=== PATIENT | male | born 1960 | race Caucasian/White ===

== ENCOUNTER 2019-04-14 09:45 | Outpatient (CLI) | payer MEDICAID, SELFPAY ==
[2019-04-14 11:01] LABS: Anion Gap 15.9 (5-19); Blood Urea Nitrogen 21 mg/dL (6-20); Calcium 10.6 mg/Dl (8.6-10.0); Carbon Dioxide 27 mmol/L (22-29); Chloride 95 mmol/L (98-107); Glucose 413 mg/dL (74-109); Phosphorus 4.1 mg/dL (2.5-4.5); Potassium 4.9 mmol/L (3.5-5.1); Sodium 133 mmol/L (136-145)
[2019-04-14 11:37] LABS: Urine Creatinine 155 mg/dL (39-259)
[2019-04-14 11:53] LABS: UPRO/UCREAT Ratio 2.26 mg/mg CR; Urine Protein Random 350 mg/dL
== END 2019-04-14 09:46 | disposition home or self-care (01) ==
LOC: LAB 09:47
PROVIDERS: Family Provider Family Medicine; PCP Family Medicine; Visit Provider Internal Medicine Nephrology
DX: R80.9 Proteinuria, unspecified (principal)
CPT/HCPCS: 80069; 82570; 84156

== ENCOUNTER 2019-05-05 14:45 | Outpatient (CLI) | payer MEDICAID, SELFPAY ==
[2019-05-05 17:39] LABS: 25 Hydroxy Vitamin D 9 ng/mL (30-100)
[2019-05-05 21:38] LABS: Calcium 10.1 mg/dL (8.5-10.5); Parathyroid Hormone 28.4 pg/mL (15-65)
[2019-05-07 14:07] LABS: ALBUMIN 3.7 g/dL (3.8-4.8); ALPHA 1 GLOBULIN 0.3 g/dL (0.2-0.3); ALPHA 2 GLOBULIN 0.8 g/dL (0.5-0.9); BETA 1 GLOBULIN 0.6 g/dL (0.4-0.6); BETA 2 GLOBULIN 0.6 g/dL (0.2-0.5); GAMMA GLOBULIN 1.2 g/dL (0.8-1.7)
[2019-05-07 15:26] LABS: KAPPA/LAMBDA LIGHT CHAINS FREE 1.33 (0.26-1.65); LAMBDA LIGHT CHAIN, FREE, SERU 24.1 mg/L (5.7-26.3)
== END 2019-05-05 14:46 | disposition home or self-care (01) ==
PROVIDERS: Family Provider Family Medicine; PCP Family Medicine; Visit Provider Internal Medicine Nephrology
DX: E83.52 Hypercalcemia (principal); N18.9 Chronic kidney disease, unspecified
CPT/HCPCS: 82306; 82310; 83883; 83970; 84155; 84165

== ENCOUNTER 2019-09-07 10:49 | Outpatient (CLI) | payer MEDICAID, SELFPAY ==
[2019-09-07 12:03] LABS: Basophils # 0.1 10^3/uL (0.0-0.1); Basophils % 0.6 %; Eosinophils # 0.2 10^3/uL (0.0-0.8); Eosinophils % 1.7 %; Hematocrit 44.5 % (42.0-52.0); Hemoglobin 14.8 g/dL (11.7-16.6); Lymphocytes # 2.3 10^3/uL (0.8-4.8); Lymphocytes % 22.6 %; Mean Corpuscular HGB Conc 33.3 g/dL (30.0-36.0); Mean Corpuscular Hemoglobin 31.2 pg (28.0-34.0); Mean Corpuscular Volume 93.9 fL (80-94); Mean Platelet Volume 11.3 fL (7.4-10.4); Monocytes # 1.2 10^3/uL (0.2-0.9); Monocytes % 12.3 %; Neutrophils # 6.2 10^3/uL (1.8-7.7); Neutrophils % 62.4 %; Nucleated Red Blood Cells % 0 %; Platelet Count 251 10^3/cmm (130-400); Red Blood Count 4.74 10^6/uL (4.1-5.3); Red Cell Distribution Width 12.7 % (12.1-15.1)
[2019-09-07 13:02] LABS: Albumin Level 4.1 g/dL (3.5-5.2); Anion Gap 16.9 (5-19); Blood Urea Nitrogen 26 mg/dL (6-20); Calcium 10.6 mg/dL (8.5-10.5); Carbon Dioxide 27 mmol/L (22-29); Chloride 99 mmol/L (98-107); Glomerular Filtration Rate 47.9 mL/min (90-130); Glucose 211 mg/dL (65-115); Phosphorus 4.5 mg/dL (2.5-4.5); Potassium 4.9 mmol/L (3.5-5.1); Sodium 138 mmol/L (136-145)
[2019-09-07 14:15] LABS: Calcium 10.4 mg/dL (8.5-10.5); Parathyroid Hormone 23.1 pg/mL (15-65)
[2019-09-10 08:21] LABS: 25 Hydroxy Vitamin D 19 ng/mL (30-100)
[2019-09-11 08:45] LABS: PROTEIN, TOTAL 6.8 g/dL (6.1-8.1)
[2019-09-13 15:11] LABS: ALBUMIN 3.7 g/dL (3.8-4.8); ALPHA 1 GLOBULIN 0.3 g/dL (0.2-0.3); ALPHA 2 GLOBULIN 0.7 g/dL (0.5-0.9); BETA 1 GLOBULIN 0.6 g/dL (0.4-0.6); BETA 2 GLOBULIN 0.5 g/dL (0.2-0.5); KAPPA LIGHT CHAIN, FREE, SERUM 37.8 mg/L (3.3-19.4); KAPPA/LAMBDA LIGHT CHAINS FREE 1.43 (0.26-1.65); LAMBDA LIGHT CHAIN, FREE, SERU 26.5 mg/L (5.7-26.3)
== END 2019-09-07 10:50 | disposition home or self-care (01) ==
LOC: LAB 10:51
PROVIDERS: Family Provider Family Medicine; PCP Family Medicine; Visit Provider Internal Medicine Nephrology
DX: N18.2 Chronic kidney disease, stage 2 (mild) (principal)
CPT/HCPCS: 36415; 80069; 82306; 82310; 83883; 83970; 84155; 84165; 85025

== ENCOUNTER 2019-09-08 15:27 | Outpatient (CLI) | payer MEDICAID, SELFPAY ==
[2019-09-08 19:12] LABS: Creatinine Urine, Random 155 mg/dL (39-259); Microalbumin Random Urine 36 ug/dL (0-20)
[2019-09-08 19:17] LABS: Microalbum Creatinine Ratio Ur 232 mg/dL (0-20)
== END 2019-09-08 15:28 | disposition home or self-care (01) ==
LOC: LAB 15:31
PROVIDERS: PCP Family Medicine; Visit Provider Internal Medicine Nephrology
DX: N18.2 Chronic kidney disease, stage 2 (mild) (principal)
CPT/HCPCS: 82044

== ENCOUNTER 2019-09-14 10:25 | Outpatient (CLI) | payer MEDICAID, SELFPAY ==
[2019-09-15 12:10] LABS: Angiotensin Converting Enzyme 16 U/L (9-67)
== END 2019-09-14 10:26 | disposition home or self-care (01) ==
LOC: LAB 10:28
PROVIDERS: PCP Family Medicine; Visit Provider Internal Medicine Nephrology
DX: N18.3 Chronic kidney disease, stage 3 (moderate) (principal); N20.0 Calculus of kidney
CPT/HCPCS: 36415; 82164

== ENCOUNTER 2019-09-15 13:02 | Outpatient (CLI) | payer MEDICAID, SELFPAY ==
[2019-09-16 09:11] LABS: Total Volume Urine 2000 ml
[2019-09-16 09:42] LABS: Calcium 24 Hour Urine 100 mg/24hr (100-300)
== END 2019-09-15 13:03 | disposition home or self-care (01) ==
LOC: LAB 13:05
PROVIDERS: PCP Family Medicine; Visit Provider Internal Medicine Nephrology
DX: N20.0 Calculus of kidney (principal)
CPT/HCPCS: 82340

== ENCOUNTER → 2019-10-04 10:01 | Outpatient (BNVA) | payer MEDICAID, SELFPAY | PROVIDERS: PCP Family Medicine; Referring Provider Family Medicine; Visit Provider Specialist | DX: M16.12 Unilateral primary osteoarthritis, left hip (principal) | CPT/HCPCS: 73502 ==

== ENCOUNTER 2019-10-12 08:31 | Outpatient (CLI) | payer MEDICAID, SELFPAY ==
--- NOTE | 2019-10-12 08:39 | US_ITS ---
WS: [id number] RENAL ULTRASOUND HISTORY: CHRONIC KIDNEY DISEASE STAGE 3 COMPARISON: 06/09/2018 TECHNIQUE: 2-D and color Doppler imaging of the kidney submitted. Right kidney: 13.4 cm x 4.4 cm x 4.6 cm. Normal size RIGHT kidney. No significant atrophy. There is a small cyst measuring 1.6 x 1.9 cm in the central RIGHT renal pelvis. May be a small parapelvic cyst. Left kidney: 11.4 cm x 5.6 cm x 6.7 cm. Normal echogenicity with no hydronephrosis or mass. Aorta: Normal. Urinary Bladder: Normal distention. US/US renal BI* [id number] IMPRESSION: Unremarkable renal ultrasound. No atrophy.
== END 2019-10-12 08:32 | disposition home or self-care (01) ==
PROVIDERS: PCP Family Medicine; Visit Provider Internal Medicine Nephrology
DX: N18.3 Chronic kidney disease, stage 3 (moderate) (principal); N20.0 Calculus of kidney
CPT/HCPCS: 76770

== ENCOUNTER 2019-10-22 10:01 | Outpatient (CLI) | payer SELFPAY ==
--- NOTE | 2019-10-22 10:08 | PC.NURSE ---
Patient identity verified via first and last name and date of . PPE to include Face Shield, N95, gown and gloves. Specimen labeled and taken to lab at this time. Patient tolerated well.
[2019-10-23 18:50] LABS: Coronavirus Lab Test PTC SEE REPORT
== END 2019-10-22 10:02 | disposition home or self-care (01) ==
PROVIDERS: PCP Family Medicine; Visit Provider Specialist
DX: Z01.812 Encounter for preprocedural laboratory examination (principal)
CPT/HCPCS: 87635

== ENCOUNTER 2019-10-26 15:07 | Observation (INO) | payer MEDICAID, SELFPAY ==
[2019-10-06 09:34] VITALS: BMI 31.0
[2019-10-06 09:56] LABS: Basophils # 0.1 10^3/uL (0.0-0.1); Basophils % 0.9 %; Eosinophils # 0.2 10^3/uL (0.0-0.8); Eosinophils % 2.5 %; Hematocrit 41.3 % (42.0-52.0); Hemoglobin 13.6 g/dL (11.7-16.6); Lymphocytes % 21.5 %; Mean Corpuscular HGB Conc 32.9 g/dL (30.0-36.0); Mean Corpuscular Hemoglobin 30.9 pg (28.0-34.0); Mean Corpuscular Volume 93.9 fL (80-94); Monocytes # 1.2 10^3/uL (0.2-0.9); Monocytes % 12.7 %; Neutrophils # 5.7 10^3/uL (1.8-7.7); Nucleated Red Blood Cells % 0 %; Platelet Count 260 10^3/cmm (130-400); White Blood Count 9.2 10^3/uL (4.0-10.0)
--- NOTE | 2019-10-06 10:08 | P.ANESASSM_ITS ---
Pre-Anesthetic Assessment Pre-Anesthetic Assessment: Height/Weight: Height 1.75 m Weight 95.254 kg Preop Diagnosis: Severe degenerative osteoarthritis left hip Proposed Procedure: Operation Date: 10/26/19 09:55 Proposed Procedures p Total Hip Arthroplasty 69155 M16.12(Left) - Maryann March MD Familial anesthetic complications: NOne Social: Social History: Tobacco and No alcohol Exam: Pre-Anes Outpt Exam: alert, oriented x 3, clear to auscultation b ilaterally and regular rate & rhythm Airway: Cervical ROM: WNL MP: 4 Dentition: Full Pulmonary: Pulmonary: None reported CV/HEM: CV/HEM: HTN : : None reported Hepatic: Hepatic: None reported GI: GI: GERD Metabolic: Metabolic: DM and Hyperlipidemia Musc/skel: Musc/skel: None reported Neuropsych: Neuropsych: None reported Anesthetic Plan: ASA status: 2 Anesthesia: General Risk of > 500 ml blood loss (7ml/kg in children): Yes, adequate IV access and fluids planned PFSH Anesthesia PFSH: Medical History Dyslipidemia Essential hypertension History of amputation of toe Hypotestosteronemia in male Low back pain radiating down leg Major depressive disorder Surgical History History of eye surgery Status post vasectomy Family History Other CAD (coronary artery disease) Cancer Diabetes Hypertension Social History Smoking and tobacco status: current every day smoker cigarettes Packs smoked per day: 1 Alcohol intake: former Data Anesthesia CBC & Chem 7: 10/06/19 09:47 Other Labs: Laboratory Results - last 48 hr 10/06/19 09:47 WBC 9.2 RBC 4.40 Hgb 13.6 Hct 41.3 L MCV 93.9 MCH 30.9 MCHC 32.9 RDW 13.0 Plt Count 260 MPV 11.0 H Neut % (Auto) 62.0 Lymph % (Auto) 21.5 [place] % (Auto) 12.7 Eos % (Auto) 2.5 Baso % (Auto) 0.9 Neut # (Auto) 5.7 Lymph # (Auto) 2.0 [place] # (Auto) 1.2 H Eos # (Auto) 0.2 Baso # (Auto) 0.1 Nucleated RBC % (auto) 0 Nucleated RBCs # 0.0 Cardiac Studies: No Data to Display
[2019-10-06 10:17] LABS: Alanine Aminotransferase 25 U/L (0-41); Albumin Level 4.1 g/dL (3.5-5.2); Alkaline Phosphatase 41 IU/L (40-130); Anion Gap 14.7 (5-19); Aspartate Amino Transferase 23 U/L (0-40); Blood Urea Nitrogen 19 mg/dL (6-20); Calcium 10.2 mg/dL (8.5-10.5); Carbon Dioxide 28 mmol/L (22-29); Chloride 99 mmol/L (98-107); Globulin 2.9 g/dL (1.3-4.6); Glomerular Filtration Rate 51.9 mL/min (90-130); Glucose 216 mg/dL (65-115); Osmolality Calculated 287 mOsm/kg (285-295); Potassium 4.7 mmol/L (3.5-5.1); Sodium 137 mmol/L (136-145); Total Bilirubin 0.2 mg/dL (0.15-1.2)
[2019-10-06 10:48] LABS: Add Urine Microscopic? YES; Bilirubin Urine Neg (NEGATIVE); Blood Urine Neg (Negative); Glucose Urine UA Norm (Normal); Ketones Urine Negative (Negative); Leukocyte Esterase Urine Negative (Negative); Nitrate Urine Negative (Negative); Protein Urine 1+ (Negative); Specific Gravity, Urine 1.025 (1.005-1.030); Urine Appearance Clear (CLEAR); Urine Color Yellow (Yellow); Urobilinogen Urine 1 mg/dL (Negative)
[2019-10-06 11:18] LABS: RBC Urine 0-4 /hpf (0-2); Squamous Epithelial Cell Urine 0-4 (0-5)
[2019-10-06 11:19] LABS: Add Urine Culture? No; Bacteria Urine 1+; Hyaline Casts Urine 0-4; Mucus Urine 1+
[2019-10-26] VITALS (20 sets, daily range): BP systolic 130–198; BP diastolic 70–97; PULSE 66–99; RESP 12–18; TEMP 36.1–37.3; O2SAT 95–100
[2019-10-26 09:31] LABS: Glucose Point of Care 197 mg/dL (70-110)
[2019-10-26] MEDS: sodium chloride 0.9% 500 ML 999 ML IV (09:34)
[2019-10-26] MEDS: CELEcoxib 200 mg Capsule 400 MG PO (09:35)
--- NOTE | 2019-10-26 10:07 | P.ANESUD_ITS ---
Pre-Anesthetic Update Pre-Anesthetic Assessment: Date of Surgery/Procedure: 10/26/19 Preop Nikki gnosis: Severe degenerative osteoarthritis left hip Proposed Procedure: Operation Date: 10/26/19 10:30 Proposed Procedures p Total Hip Arthroplasty 80391 M16.12(Left) - Maryann March MD Any changes to Pre-Anesthetic Assessment?: No Last Intake: Intake Last Liquid Date 10/25/19 Last Liquid Time 20:30 Last Solid Date 10/25/19 Last Solid Time 20:30 Labs Last 48hrs: Laboratory Results - last 48 hr 10/26/19 09:27 POC Glucose 197 Vitals: Temperature 97 F L 10/26/19 09:04 Temperature Source Oral 10/26/19 09:04 Pulse Rate 84 10/26/19 09:04 Pulse Rhythm 10/26/19 09:08 Respiratory Rate 18 10/26/19 09:04 Blood Pressure 155/75 10/26/19 09:04 Blood Pressure Alyssa n 101 10/26/19 09:04 Pulse Oximetry 95 10/26/19 09:04 Oxygen Delivery Me thod 10/26/19 09:08 Exam: Pre-Anes Outpt Exam: alert, oriented x 3, clear to auscultation bilaterally and regular rate & rhythm Cardiac Studies: No Data to Display
--- NOTE | 2019-10-26 10:11 | W.PM.OPSUD ---
Surgery/Procedure H&P Update DATE OF PROCEDURE: October 26, 2019 DATE H&P PERFORMED: 10/04/19 H&P UPDATE INFORMATION: I have reviewed H&P completed within last 30 days, I have examined patient prior to procedure and H&P is in [facility] EMR on date indicated PREOP DIAGNOSIS: Severe degenerative osteoarthritis left hip PLANNED PROCEDURE: Operation Date: 10/26/19 10:30 Proposed Procedures p Left Total Hip Arthroplasty 54270 M16.12(Left) - Maryann Macrh MD Related Problem List Diagnoses (1) Osteoarthritis of left hip: Qualifiers: Osteoarthritis type: primary Qualified Code(s): M16.12 - Unilateral primary osteoarthritis, left hip
[2019-10-26] MEDS: ceFAZolin 1,000 mg SDV 1000 MG IRRIGATION (12:12)
[2019-10-26] MEDS: vancomycin 1,000 MG SDV 1000 MG XX (12:13)
--- NOTE | 2019-10-26 12:54 | SUR.OPER ---
Family Notified Of Patient's Status Via Phone.
[2019-10-26] MEDS: fentaNYL 50 mcg/mL INJ 2mL IVP (14:08)
[2019-10-26] MEDS: labetalol 5 mg/mL SDV 20mL IVP ×2 (14:14→14:19)
--- NOTE | 2019-10-26 14:21 | XRR_ITS ---
PROCEDURE INFORMATION: Exam: XR Pelvis Exam date and time: 10/26/2019 2:40 PM Age: 58 years old Clinical indication: Condition or disease; Joint replacement status; Left; Prior surgery; Surgery date: Post-operative (0-2 days); Additional info: Status post left total hip arthroplasty TECHNIQUE: Imaging protocol: XR pelvis. Views: 1 or 2 view. COMPARISON: CR XR hip LT 2-3V wo/w pel* [id number] 10/04/2019 10:06 AM FINDINGS: Bones/joints: There is metallic left hip arthroplasty present in good position. This finding represents a change since prior examination. No acute fracture. Soft tissues: Unremarkable. XR/XR pelvis 1-2V* [id number] IMPRESSION: 1. Metallic left hip arthroplasty in good position 2. Otherwise No acute findings.
--- NOTE | 2019-10-26 14:33 | P.OP_ITS ---
Operative Report Date of procedure: October 26, 2019 Pre-op Diagnosis: Severe degenerative osteoarthritis left hip Post-op diagnosis: same (With severe limitation in range of motion, very large osteophytes, and deformity of the femoral head) Post-op Findings: Severe degenerative osteoarthritis left hip with significant femoral head deformity and large osteophytes. Preoperatively, the patient had significant limitations in range of motion. Postoperatively, the hip was stable at 90 degrees of flexion with 90 degrees of internal rotation and 40 degrees of adduction. It was also stable to external rotation and toe hang Procedure Done: Left total hip arthroplasty utilizing the following implants from the [employer] Accolade II total hip system: The size 58 mm solid back acetabular shell with an F alpha code and an MDM liner size 46 mm inner diameter by F alpha code. An Accolade II size 6 x 127 degree neck angle hip stem, femoral head size 28 mm outer diameter and +0 mm offset inside of an MDM insert size inner diameter 28 mm to match the 46F Specimens removed/disposition: Femoral head, disposed of Pathology: none sent Surgeon: Maryann March Vocational Psychologist: Alyson Tripp Anesthesia: General (Intubated, ASA 2) Estimated blood loss (mL): 450 IV fluids (mL): 1,000 Urine output (mL): 250 Complications: None Findings: Severe degenerative osteoarthritis with shortening of the left lower extremity secondary to a high center acetabulum. Condition: stable Disposition: PACU (Then to floor for observation, pain management, and physical therapy) Brief History: This 58-year-old man presented with complaints of severe left hip pain with significant reduction in range of motion. He has had significant limitations in his activities of daily living. Risks and complications of surgery were discussed with the patient. The patient has a leg length discrepancy which may or may not be able to be corrected with the surgical procedure. He understood and wished to proceed. Consents were signed. Questions were answered. Procedure: Patient was brought to the operating theater. He was transferred to the operating room table and subsequently administered a general anesthetic intubated, ASA 2. Following administration of adequate anesthesia, the patient was placed in full lateral position and held in position with a pegboard. The patient's left lower extremity was then prepped and draped in usual fashion utilizing DuraPrep. It was draped free. Following prepping and draping a surgical pause was performed. At the time of surgical pause, we identified the site and side of surgery. We also identified the patient and preoperative surgical markings. Confirmation was made of equipment availability. Additionally, the patient's preoperative IV antibiotic, Ancef 2 g and TXA 1 g preoperatively was confirmed as being given in a timely fashion and being the appropriate. An additional dose was given postoperatively as well. Following the surgical pause, an incision was made centering over the patient's greater trochanter continuing proximally and distally as necessary to allow access to the hip joint. Dissection continued through skin and soft tissues using a scalpel, and hemostasis was obtained using electrocautery. The tensor fascia jonathan was identified and incised longitudinally. Sciatic nerve was identified and protected throughout the surgical procedure. A Charnley U retractor was placed after the tensor fascia jonathan had been incised longitudinally, and the sciatic nerve had been identified. The hip had significant limitation in range of motion, and most particularly, abduction and internal rotation. Retractors were placed, and the piriformis muscle was identified and tagged. Piriformis muscle along with the remaining short external rotators were then incised from the posterior aspect of the hip joint. These were retracted posteriorly. The capsule was entered in a T-type fashion with the edges being tagged. Upon entry through the capsule, there were large osteophytes covering all the way nearly to the greater trochanter along all sides of the neck. In this manner, the hip was nearly autofused accounting for the severe reduction in range of motion. Head was noted to be very deformed. Appropriate osteotomy was performed of the femoral neck following hip dislocation. We then evaluated the acetabulum. The femur was retracted anteriorly. Soft tissues were retracted, osteophytes were excised, and the labrum was removed. We then began reaming. Reaming was accomplished sequentially. We reamed to a size 57 to allow for a size 58 acetabular shell. The acetabulum was impacted into position. The dome hole was filled with the appropriate metal plug. Also, we confirmed that the acetabular insert was completely seated prior to addressing the femur. After the acetabulum was in appropriate position, we placed the MDM liner without difficulty. The cup was noted to seat nicely and had good fixation upon impact. Attention was directed to the proximal femur. The proximal femur was lifted out of the wound. A canal finder was passed after the box chisel. The reamer was used to lateralize. We then began broaching. We broached sequentially, and placed a size 6 broach in position for trial reduction. A trial reduction was accomplished with a +0 mm femoral head inside the appropriate MDM insert. Initially, secondary to the patient's significant contracture about the hip, we had to use a -4 mm femoral head followed by the -2.7 mm, and we were then able to progress to a +0 mm femoral head giving the patient pentecostalism of his leg lengths. This gave excellent stability, and with this in place, we had the above stabilities, and at that time, we felt that we had acceptable leg lengths. Therefore, the +0 mm offset femoral head was chosen. Trial components were removed after the hip was dislocated. The size 6 Accolade II 127 degree neck angle hip stem was impacted into position without difficulty and onto this was placed a +0 mm offset femoral head with the appropriate MDM liner. The hip was then reduced without difficulty. With this construct, we had the above-noted stability. The stem was noted to seat nicely prior to placement of the femoral head. The wound was then copiously irrigated with 20 mL of Betadine and 500 mL of normal saline mixed together. Subsequently, we suctioned this out and irrigated the wound copiously with lactated Ringer's. Following reduction of the prosthesis once again, we confirmed the stability of the hip. Leg lengths were also felt to be satisfactory. Being satisfied with the prosthesis, attention was directed to closure. Closure was accomplished with 0 Vicryl in the capsular tissues. Piriformis was reattached with 0 Vicryl as well. Tensor fascia jonathan was closed with 0 Vicryl in an interrupted fashion. The subcutaneous tissues were closed with 2-0 Monocryl. Vancomycin powder and a Gelfoam thrombin mixture was placed into the wound as well. The skin was closed with a running 3-0 Monocryl followed by Exofin and Steri-Strips. This was covered with Telfa and Tegaderm. The patient was placed in an abduction pillow. She was returned the Recovery Room in a satisfactory condition and will be discharged to the floor for postoperative rehabilitation and pain management. There were no complications. Associated Problem List Diagnoses (1) Osteoarthritis of left hip: Qualifiers: Osteoarthritis type: primary Qualified Code(s): M16.12 - Unilateral primary osteoarthritis, left hip
[2019-10-26] MEDS: oxyCODONE 5 mg IR Tab/Cap PO ×2 (16:00→19:56)
[2019-10-26] MEDS: sennosides-docusate Tablet 2 TAB PO (17:54)
[2019-10-26] MEDS: gabapentin 400 mg Capsule PO ×2 (17:54→19:56)
[2019-10-26] MEDS: iron polysaccharide complex 150 mg Capsule PO (17:54)
[2019-10-26] MEDS: metformin 500 mg Tablet 1000 MG PO (17:54)
[2019-10-26] MEDS: mupirocin oint 22 gm 1 APPLIC NASAL (17:54)
[2019-10-26] MEDS: duloxetine 60 mg Capsule PO (17:54)
[2019-10-26] MEDS: metoprolol tartrate 25 mg Tablet PO (17:54)
[2019-10-26] MEDS: calcium carbonate 500 mg Chew Tablet 1000 MG PO (17:54)
[2019-10-26] MEDS: chlorhexidine gluconate 0.12% Btl 473 mL 30 ML MUCOUS MEM ×2 (17:55→19:57)
[2019-10-26] MEDS: trazodone 50 mg Tablet PO (19:57)
[2019-10-27] VITALS (7 sets, daily range): BP systolic 120–134; BP diastolic 66–76; PULSE 72–97; RESP 18–20; TEMP 36.6–37.7; O2SAT 95–99
[2019-10-27] MEDS: TRAMadol 50 mg Tablet PO ×2 (00:08→08:13)
[2019-10-27] MEDS: methocarbamol 500 mg Tablet PO (00:09)
[2019-10-27 04:30] LABS: Basophils # 0.1 10^3/uL (0.0-0.1); Basophils % 0.5 %; Eosinophils # 0.1 10^3/uL (0.0-0.8); Eosinophils % 0.4 %; Hematocrit 37.3 % (42.0-52.0); Hemoglobin 12.2 g/dL (11.7-16.6); Lymphocytes # 1.7 10^3/uL (0.8-4.8); Lymphocytes % 14.6 %; Mean Corpuscular HGB Conc 32.7 g/dL (30.0-36.0); Mean Corpuscular Hemoglobin 30.7 pg (28.0-34.0); Mean Platelet Volume 11.2 fL (7.4-10.4); Monocytes # 1.6 10^3/uL (0.2-0.9); Monocytes % 14.3 %; Neutrophils # 7.93 10^3/uL (1.8-7.7); Neutrophils % 69.8 %; Nucleated Red Blood Cells % 0 %; Platelet Count 220 10^3/cmm (130-400); Red Blood Count 3.97 10^6/uL (4.1-5.3); Red Cell Distribution Width 12.8 % (12.1-15.1); White Blood Count 11.4 10^3/uL (4.0-10.0)
[2019-10-27 04:47] LABS: Blood Urea Nitrogen 20 mg/dL (6-20); Carbon Dioxide 25 mmol/L (22-29); Chloride 99 mmol/L (98-107); Glucose 268 mg/dL (65-115); Osmolality Calculated 282 mOsm/kg (285-295); Sodium 133 mmol/L (136-145)
[2019-10-27] MEDS: oxyCODONE 5 mg IR Tab/Cap PO ×2 (06:22→12:45)
[2019-10-27] MEDS: multivitamin therapeutic Tablet 1 TAB PO (08:12)
[2019-10-27] MEDS: cholecalciferol (vitamin D3) 1,000 unit Tablet 1000 UNIT PO (08:13)
[2019-10-27] MEDS: sitagliptin 100 mg Tablet PO (08:13)
[2019-10-27] MEDS: gabapentin 400 mg Capsule PO ×2 (08:13→14:20)
[2019-10-27] MEDS: duloxetine 60 mg Capsule PO (08:13)
[2019-10-27] MEDS: metoprolol tartrate 25 mg Tablet PO (08:13)
[2019-10-27] MEDS: cyanocobalamin 1,000 mcg Tablet 1000 MCG PO (08:13)
[2019-10-27] MEDS: lisinopril 5 mg Tablet PO (08:13)
[2019-10-27] MEDS: mupirocin oint 22 gm 1 APPLIC NASAL (08:13)
[2019-10-27] MEDS: atorvastatin 40 mg Tablet PO (08:13)
[2019-10-27] MEDS: aspirin 325 mg EC Tablet PO (08:13)
[2019-10-27] MEDS: iron polysaccharide complex 150 mg Capsule PO (08:13)
[2019-10-27] MEDS: metformin 500 mg Tablet 1000 MG PO (08:13)
[2019-10-27] MEDS: chlorhexidine gluconate 0.12% Btl 473 mL 30 ML MUCOUS MEM ×2 (08:14→13:28)
[2019-10-27] MEDS: calcium carbonate 500 mg Chew Tablet 1000 MG PO (08:14)
--- NOTE | 2019-10-27 11:05 | PC.CHAP ---
Pastoral Care Encounter/Spiritual Assessment Type of Contact [] Declined tour conductor visit [] Patient/Family/Request visit [] Outpatient visit [] Follow-up visit [] Physician referral [] Code/Alert [x] Routine visit [] Staff referral [] Actively dying [] Patient sleeping [] Family support [] [] Out of room [] Palliative care [] [] Receiving care in room [] Pre-surgical visit [] Trauma [] Long length of stay [] ICU visit [] Other: Relational/Emotional Strength [] Patient feels connected with others/family/visitors/staff [] Distress [] Loneliness/isolation [] Abandonment Spirituality of Patient [] Person of [place] [] Attends Zoroastrianism of their [place] [] Believes in Prayer [] Reads Bible or Worship materials [] There are Spiritual issues to be addressed [place] Interventions [x] Prayer [x] Active listening [x] Non-anxious presence [x] Spiritual/emotional support [] Crisis/trauma care [] Spiritual counseling [] Bereavement support [] Provided bereavement packet [] Provided Bible/devotional materials [] Provided toy/stuffed animal, coloring book to patient or family member [] Provided Communion [] Anointing/[place] [] Salvation [x] Completed spiritual assessment [] Other: Impact on Illness or Injury [] Angry [] Fearful [] Anxious [] Often cries [] Exhaustion [] Unable to work [] Unable to attend religious [] Unable to walk/stand [] Unable to read [] Unable to drive [] Unable to eat/drink [] Unable to sleep [] Unable to be with family [] Patient intubated [] Other: Summary Patient doing well with new hip. Ready to go home... very pleasant man Time spent with patient 10 min
--- NOTE | 2019-10-27 16:34 | P.DS_ITS ---
Discharge Providers Date of Admission: 10/26/19 15:07 Date of Discharge: October 27, 2019 Attending Provider at Admission: Maryann March MD Attending Provider at Discharge: Maryann March MD Primary Care Provider: Clarice Guajardo DO Diagnoses at Discharge Discharge Diagnosis (1) Osteoarthritis of left hip: Status: Acute Qualifiers: Osteoarthritis type: primary Qualified Code(s): M16.12 - Unilateral primary osteoarthritis, left hip Reason for Visit Reason for Visit: primary osteoarthritis of left hip Hospital Course Hospital Course: Patient patient was admitted for same-day surgery. On the day of admission, October 25, the patient underwent the following procedure: Left total hip arthroplasty utilizing the following implants from the [employer] Accolade II total hip system: The size 58 mm solid back acetabular shell with an F alpha code and an MDM liner size 46 mm inner diameter by F alpha code. An Accolade II size 6 x 127 degree neck angle hip stem, femoral head size 28 mm outer diameter and +0 mm offset inside of an MDM insert size inner diameter 28 mm to match the 46F. Postoperatively, he was admitted to the floor under observation status for initiation of physical therapy, pain management, and to assure he was medically stable for discharge to home. Discharge Summary: Patient was admitted on October 25 and discharged on October 26 under observation status. He underwent a left total hip arthroplasty uneventfully. There were no complications. Physical Exam Const: COMMON NORMALS: no acute distress, average body habitus, patient oriented x3 and alert GENERAL APPEARANCE: cooperative and comfortable ORIENTATION/CONSCIOUSNESS: Yes awake HENMT: COMMON NORMALS: normocephalic and atraumatic HEAD & SCALP: normocephalic and atraumatic Eye: GENERAL EYE: appearance normal, both eyes and all related structures Chest: COMMONS NORMALS: normal inspection of the chest Resp: COMMON NORMALS: normal respiratory effort EFFORT & INSPECTION: Yes able to speak in complete sentences and Yes symmetric chest movement Extremity: LEFT LOWER EXTREMITY: Yes hip joint Left hip: Yes inspection (There is no swelling. There is no drainage from the incision.), Yes palpation (There is minimal to no tenderness to palpation.), Yes ROM (The patient is able to move about the room without painful range of motion.) and Yes neurovascular exam (There is no evidence of DVT. The patient is neurologically intact.) Neuro: COMMON NORMALS: patient oriented x3 SENSORIUM/ORIENTATION: Yes alert Psych: COMMON NORMALS: mental status grossly normal APPEARANCE: Yes grossly normal ATTITUDE: Yes calm and Yes engaged ATTENTION/CONCENTRATION: Yes attention grossly intact Skin: COMMON NORMALS: no rashes or lesions noted GENERAL SKIN EXAM: no rashes or lesions noted Urinary Catheter Management^: F: Cath Placed During This Visit: yes Reason for Continuing Indwelling Catheter: Perioperative Use in Selected Surge jarrell Urinary Catheter Date of Insertion: 10/26/19 Urinary Catheter Time of Insertion: 11:45 Discharge Data Data Completed and Pending: Completed Studies During Hospitalization Category Date Time Status XR pelvis 1-2V* 7 2170 Routine Exams 10/26/19 14:21 Completed Pending at discharge Category Date Time Status Complete Blood Co unt w/Auto AM LABS Lab 10/28/19 04:00 Ordered Complete Blood Co unt w/Auto AM LABS Lab 10/29/19 04:00 Ordered Labs from last 24 hours 10/27/19 10/27/19 04:10 04:10 WBC 11.4 H RBC 3.97 L Hgb 12.2 Hct 37.3 L MCV 94.0 MCH 30.7 MCHC 32.7 RDW 12.8 Plt Count 220 MPV 11.2 H Neut % (Auto) 69.8 Lymph % (Auto) 14.6 [place] % (Auto) 14.3 Eos % (Auto) 0.4 Baso % (Auto) 0.5 Neut # (Auto) 7.93 H Lymph # (Auto) 1.7 [place] # (Auto) 1.6 H Eos # (Auto) 0.1 Baso # (Auto) 0.1 Nucleated RBC % (a uto) 0 Nucleated RBCs # 0.0 Sodium 133 L Potassium 5.0 Chloride 99 Carbon Dioxide 25 Anion Gap 14.0 BUN 20 Creatinine 1.2 GFR Calculation 62.0 L Glucose 268 H Calculated Osmolal ity 282 L Calcium 9.0 Vitals: Last Vital Signs Temp 97.9 F 10/27/19 16:17 Pulse 72 10/27/19 16:17 Resp 18 10/27/19 16:17 BP 124/76 10/27/19 16:17 Pulse Ox 99 10/27/19 16:17 Discharge Plan Discharge Patient Disposition: Home Health Service Condition: Stable Prescriptions: New oxycodone 5 mg Tablet 5 mg PO Q4H PRN (Reason: Moderate Pain) Qty: 30 RF: 0 Celebrex 200 mg capsule 200 mg PO BID Qty: 30 RF: 0 Continued lisinopril 5 mg tablet 5 mg PO DAILY RF: 0 (DME) OneTouch Ultra Blue Test Strip Strip See Rx Instructions .ROUTE .MEDSUPPLY Qty: 100 RF: 2 (DME) lancets [OneTouch Delica Lancets] 30 gauge misc See Rx Instructions .ROUTE .MEDSUPPLY Qty: 100 RF: 2 (DME) pen needle, diabetic [Comfort EZ Pen [place]] 32 gauge x 3/16 needle See Rx Instructions .ROUTE .MEDSUPPLY Qty: 100 RF: 0 gabapentin 400 mg capsule 400 mg PO TID Qty: 90 RF: 0 duloxetine 60 mg capsule,delayed release(DR/EC) 60 mg PO BID Qty: 180 RF: 0 trazodone 50 mg tablet 50 - 100 mg PO .at bedtime Qty: 60 RF: 0 fenofibrate nanocrystallized [Tricor] 145 mg tablet 145 mg PO QDAY Qty: 30 RF: 0 Januvia 100 mg tablet 100 mg PO DAILY Qty: 30 RF: 0 testosterone cypionate [Depo-Testosterone] 100 mg/mL oil 200 mg IM .EVERY 2 WEEKS Qty: 2 RF: 0 metoprolol tartrate 25 mg tablet 25 mg PO BID Qty: 180 RF: 3 Tresiba FlexTouch U-100 100 unit/mL (3 mL) insulin pen 26 unit SUBCUT DAILY Qty: 3 RF: 2 Victoza 3-John 0.6 mg/0.1 mL (18 mg/3 mL) pen injector 1.8 mg SUBCUT DAILY Qty: 9 RF: 5 tramadol 50 mg tablet 50 mg PO Q8H PRN (Reason: pain) Qty: 90 RF: 1 methocarbamol 500 mg tablet 500 mg PO Q8H PRN (Reason: muscle spasms) Qty: 90 RF: 1 metformin 1,000 mg tablet 1,000 mg PO BID Qty: 60 RF: 2 atorvastatin 40 mg tablet 40 mg PO DAILY Qty: 30 RF: 1 multivitamin Tablet 1 tab PO DAILY RF: 0 ascorbic acid (vitamin C) [Vitamin C] 1,000 mg Tablet 1 g PO BID RF: 0 beta carotene 25,000 unit Capsule 25,000 unit PO DAILY RF: 0 cyanocobalamin (vitamin B-12) [Vitamin B-12] 1,000 mcg Tablet 1,000 mcg PO DAILY RF: 0 niacin 500 mg Tablet 500 mg PO DAILY RF: 0 cholecalciferol (vitamin D3) [Vitamin D3] 25 mcg (1,000 unit) Capsule 25 mcg PO DAILY RF: 0 coenzyme Q10 200 mg Capsule 200 mg PO DAILY RF: 0 melatonin 5 mg Tablet 5 mg PO DAILY RF: 0 omega 5-duo-wei-fish oil [Fish Oil] 1,000 mg (120 mg-180 mg) Capsule 1 cap PO BID RF: 0 aspirin 325 mg Tablet 325 mg PO DAILY RF: 0 Changed Tylenol Extra Strength 500 mg Tablet 500 mg PO TID PRN (Reason: Pain) Qty: 0 RF: 0 Discharge Orders: Discharge Order (Routine); Ordered 10/27/19 Ordered By: Maryann March Other Ambulatory Orders: DME: Walker (Order) Location: None Selected Ordered By: Maryann March DME: Walker (Order) Location: None Selected Ordered By: Maryann March Referrals: [facility] ([facility]) [Outside] Maryann March MD [Physician] - 11/11/19 11:45 am Clarice Guajardo DO [Primary Care Provider] - (PLEASE CALL FOR APPOINTMENT WITH [facility]) Discharge Diet: Advance as tolerated and Usual diet Discharge Activity: Increase activity as tolerated, Limit activity as instructed, Use walker/crutches as instructed and As per PT/OT instructions Patient Instructions: Celecoxib (By mouth), Oxycodone, Slow Release (By mouth), Total Hip Replacement (DC), Surgical Site Infections (GEN) Activity Restrictions/Additional Instructions: Posterior hip precautions. Ice to hip. Follow-up as scheduled. Discharge Date/Time: 10/27/19 17:01 Discharge Attestations Time Spent in Discharge Care*: greater than 30 min Specific Discharge Activities: Specific discharge activities: discussing with mental health case manager/social workers/dc planners, documenting/other paperwork and evalua ting patient/reviewing data Quality Metrics Clinical Quality Measures During this hospital stay, did patient experience: None Coding Level of Care Code Acute Looper Operator for Walter Fwd Exam Comprehensive Diagnoses Osteoarthritis of left hip M16.12 Osteoarthritis type: primary
--- NOTE | 2019-10-27 17:01 | PC.NURSE ---
patient taken to private vehicle by designer writer. patrick pillow and ice with patient.
--- NOTE | 2019-10-29 16:08 | PC.RESP ---
SMOKING CESSATION INFORMATION SENT TO PATIENT.
== END 2019-10-27 17:01 | disposition home health service (06) ==
LOC: MEDSURG 10-27 16:26
PROVIDERS: Admitting Provider Specialist; PCP Family Medicine; Visit Provider Specialist
PROC: (CPT 27130; principal; 2019-10-26 10:30)
DX: M16.12 Unilateral primary osteoarthritis, left hip (principal); I10 Essential (primary) hypertension; K21.9 Gastro-esophageal reflux disease without esophagitis; E11.9 Type 2 diabetes mellitus without complications; E78.5 Hyperlipidemia, unspecified; Z89.429 Acquired absence of other toe(s), unspecified side; F17.210 Nicotine dependence, cigarettes, uncomplicated; Z79.4 Long term (current) use of insulin
CPT/HCPCS: 27130; 12345; 36415; 36416; 51702; 72170; 80048; 80053; 81001; 82962; 85025; 87641; 96365; 96366; 97110; 97116; 97161; 97166; 97530; C1776; G0378; J0131; J0690; J2370; J2405; J2704; J3010; J3370; J3490; J7040

== ENCOUNTER → 2019-11-11 11:57 | Outpatient (BNVA) | payer MEDICAID, SELFPAY | PROVIDERS: PCP Family Medicine; Visit Provider Specialist | DX: Z98.890 Other specified postprocedural states (principal) | CPT/HCPCS: 73502; 80500; 84450; 87070; 87075; 87077; 87186; 89050; 89051 ==

== ENCOUNTER 2019-11-16 15:05 | Outpatient (CLI) | payer MEDICAID, SELFPAY ==
--- NOTE | 2019-11-16 15:12 | XR_ITS ---
WS: [id number] LEFT HIP HISTORY: POST OPERATIVE LT HERMILO COMPARISON: 11/11/2019 LEFT hip: No acute fracture or dislocation. Prior LEFT hip arthroplasty. Prosthetic components are in good position alignment. XR/XR hip LT 2-3V wo/w pel* [id number] IMPRESSION: 1. No hip fracture. 2. LEFT hip arthroplasty in good position.
== END 2019-11-16 15:06 | disposition home or self-care (01) ==
LOC: RADWPI 15:08
PROVIDERS: Family Provider Family Medicine; PCP Family Medicine; Visit Provider Specialist
DX: Z96.642 Presence of left artificial hip joint (principal)
CPT/HCPCS: 73502

== ENCOUNTER → 2019-11-17 15:30 | Outpatient (BNVA) | payer MEDICAID, SELFPAY | PROVIDERS: Family Provider Family Medicine; PCP Family Medicine; Visit Provider Specialist | DX: M79.81 Nontraumatic hematoma of soft tissue (principal); Z98.890 Other specified postprocedural states | CPT/HCPCS: 80500; 84450; 87070; 87075; 87077; 87186; 89050 ==

== ENCOUNTER 2019-11-20 18:06 | Emergency (ER) | payer MEDICAID, SELFPAY ==
[2019-11-20 18:17] VITALS: BP 134/60; PULSE 108; RESP 18; TEMP 36.8; O2SAT 98; BMI 31.0
--- NOTE | 2019-11-20 18:21 | XRR_ITS ---
PROCEDURE INFORMATION: Exam: XR Left Hip with Pelvis when Performed Exam date and time: 11/20/2019 7:39 PM Age: 58 years old Clinical indication: Hip pain; Left hip; Prior surgery; Surgery date: <1 month; Additional info: New hip replacement, clicking noise TECHNIQUE: Imaging protocol: XR Left hip with pelvis when performed. Views: 2 or 3 views. COMPARISON: CR XR hip LT 2-3V wo/w pel* [id number] 2019-11-16 15:28 FINDINGS: Bones/joints: Left hip arthroplasty. Soft tissues: Unremarkable. XR/XR hip LT 2-3V wo/w pel* [id number] IMPRESSION: No acute abnormality.
--- NOTE | 2019-11-20 19:32 | W.ED.EXTPRO ---
HPI - Extremity Problem General: Chief complaint: Extremity Problem,Nontraumatic Stated complaint: CLICKING IN LEFT HIP Time Seen by Provider: 11/20/19 19:32 Source: patient Mode of arrival: ambulatory Limitations: no limitations History of Present Illness: HPI Narrative: 68-year-old male patient comes in with a clicking sensation in his left hip. Patient reports he was trying to put on socks this morning and his foot got stuck in the sock causing him to abduct his hip abnormally. Patient then went for walk and later he started noticing a clicking in his left hip. Patient had his hip replacement done on 25 October. Patient was concerned for displacement of the hip or prosthesis. Patient appears well. Patient denies any pain. Review of Systems General: Reports: 10 or more systems reviewed and unremarkable except in HPI and below Musc: Reports: joint pain PFS ED PFSH: Medical History (Updated 11/20/19 @ 19:43 by YRIS OcampoP) Abnormal cardiovascular stress test Dyslipidemia Essential hypertension History of amputation of toe Hypotestosteronemia in male Low back pain radiating down leg Major depressive disorder Nontraumatic hematoma of soft tissue Tachycardia Surgical History History of eye surgery Status post vasectomy Family History Other CAD (coronary artery disease) Cancer Diabetes Hypertension Social History Smoking and tobacco status: current every day smoker cigarettes Packs smoked per day: 1 Alcohol intake: former Physical Exam Const: COMMON NORMALS: no acute distress and patient oriented x3 GENERAL APPEARANCE: cooperative HENMT: COMMON NORMALS: normocephalic and Normal external nose present HEAD & SCALP: normal to inspection and normocephalic NOSE: Normal external nose present MOUTH: Normal oral and palatal mucosa present THROAT: posterior oropharynx normal Eye: GENERAL EYE: appearance normal, both eyes and all related structures Neck/C-Spine: COMMON NORMALS: full ROM Chest: COMMONS NORMALS: normal inspection of the chest Resp: COMMON NORMALS: normal respiratory effort EFFORT & INSPECTION: Yes able to speak in complete sentences Cardio: COMMON NORMALS: regular rate and regular rhythm RATE: regular rate RHYTHM: regular rhythm GI: COMMON NORMALS: non-tender Back/Pelvis: COMMON NORMALS: thoracic and lumbar spine normal to inspection Extremity: NARRATIVE EXTREMITY EXAM: No abnormality is noted in the hip with range of motion. No clicking or dislocation is noted. Neuro: COMMON NORMALS: patient oriented x3 and moves all extremities Psych: COMMON NORMALS: mental status grossly normal and cooperative Skin: COMMON NORMALS: no rashes or lesions noted GENERAL SKIN EXAM: no rashes or lesions noted Course Vital Signs: Vital signs: Vital Signs Temperature 98.3 F 11/20/19 18:17 Pulse Rate 108 H 11/20/19 18:17 Respiratory Rate 18 11/20/19 18:17 Blood Pressure 134/60 11/20/19 18:17 Pulse Oximetry 98 11/20/19 18:17 MDM - Extremity (Nontraumatic) MDM Narrative: Medical decision making narrative: Patient presents with abnormal sensation in the left hip. Patient recently had a hip replacement done at the end of October. Exam was normal. Patient had good range of motion of the hip. Differential diagnosis includes but not limited to fracture, sprain, strain, prosthetic failure. X-rays showed no abnormality. No change from previous x-ray done on the November 15. Reassured patient with recommendations for treatment. Patient reports understanding agreed to plan. Discharge Plan Discharge Patient Disposition: Home Clinical Impression: Strain of muscle, fascia and tendon of left hip, initial encounter Condition: Stable Prescriptions: No Action lisinopril 5 mg tablet 5 mg PO DAILY RF: 0 celecoxib [Celebrex] 200 mg capsule 200 mg PO DAILY Qty: 60 RF: 0 clindamycin HCl 300 mg capsule 300 mg PO TID Qty: 21 RF: 0 (DME) OneTouch Ultra Blue Test Strip Strip See Rx Instructions .ROUTE .MEDSUPPLY Qty: 100 RF: 2 (DME) lancets [OneTouch Delica Lancets] 30 gauge misc See Rx Instructions .ROUTE .MEDSUPPLY Qty: 100 RF: 2 (DME) pen needle, diabetic [Comfort EZ Pen [place]] 32 gauge x 3/16 needle See Rx Instructions .ROUTE .MEDSUPPLY Qty: 100 RF: 0 duloxetine 60 mg capsule,delayed release(DR/EC) 60 mg PO BID Qty: 180 RF: 0 trazodone 50 mg tablet 50 - 100 mg PO .at bedtime Qty: 60 RF: 0 fenofibrate nanocrystallized [Tricor] 145 mg tablet 145 mg PO QDAY Qty: 30 RF: 0 testosterone cypionate [Depo-Testosterone] 100 mg/mL oil 200 mg IM .EVERY 2 WEEKS Qty: 2 RF: 0 metoprolol tartrate 25 mg tablet 25 mg PO BID Qty: 180 RF: 3 Tresiba FlexTouch U-100 100 unit/mL (3 mL) insulin pen 26 unit SUBCUT DAILY Qty: 3 RF: 2 Victoza 3-John 0.6 mg/0.1 mL (18 mg/3 mL) pen injector 1.8 mg SUBCUT DAILY Qty: 9 RF: 5 tramadol 50 mg tablet 50 mg PO Q8H PRN (Reason: pain) Qty: 90 RF: 1 methocarbamol 500 mg tablet 500 mg PO Q8H PRN (Reason: muscle spasms) Qty: 90 RF: 1 metformin 1,000 mg tablet 1,000 mg PO BID Qty: 60 RF: 2 atorvastatin 40 mg tablet 40 mg PO DAILY Qty: 30 RF: 1 Januvia 100 mg tablet 100 mg PO DAILY Qty: 30 RF: 1 gabapentin 400 mg capsule 400 mg PO TID Qty: 90 RF: 1 multivitamin Tablet 1 tab PO DAILY RF: 0 ascorbic acid (vitamin C) [Vitamin C] 1,000 mg Tablet 1 g PO BID RF: 0 beta carotene 25,000 unit Capsule 25,000 unit PO DAILY RF: 0 cyanocobalamin (vitamin B-12) [Vitamin B-12] 1,000 mcg Tablet 1,000 mcg PO DAILY RF: 0 niacin 500 mg Tablet 500 mg PO DAILY RF: 0 cholecalciferol (vitamin D3) [Vitamin D3] 25 mcg (1,000 unit) Capsule 25 mcg PO DAILY RF: 0 coenzyme Q10 200 mg Capsule 200 mg PO DAILY RF: 0 melatonin 5 mg Tablet 5 mg PO DAILY RF: 0 omega 8-qvx-egc-fish oil [Fish Oil] 1,000 mg (120 mg-180 mg) Capsule 1 cap PO BID RF: 0 aspirin 325 mg Tablet 325 mg PO DAILY RF: 0 oxycodone 5 mg Tablet 5 mg PO Q4H PRN (Reason: Moderate Pain) Qty: 30 RF: 0 Tylenol Extra Strength 500 mg Tablet 500 mg PO TID PRN (Reason: Pain) Qty: 0 RF: 0 Celebrex 200 mg capsule 200 mg PO BID Qty: 30 RF: 0 Discharge Orders: Discharge Order (Routine); Ordered 11/20/19 Ordered By: Marquis Sykes Referrals: Juany Guajardo DO [Primary Care Provider] - Discharge Diet: Usual diet Discharge Activity: Increase activity as tolerated Activity Restrictions/Additional Instructions: Activity as tolerated. No change was noted in the x-rays. Hip prosthesis is in well-placed. Drink plenty of water with medication. Use acetaminophen for pain. Follow-up with primary care or orthopedic surgeon for further treatment. Return to the ED for new concerns. Coding Level of Care Code ED Insurance Consultant for Chg Fwd Exam Comprehensive
== END 2019-11-20 19:56 | disposition home or self-care (01) ==
PROVIDERS: Emergency Provider Nurse Practitioner Family; PCP Family Medicine
DX: S76.012A Strain of muscle, fascia and tendon of left hip, initial encounter (principal); X50.9XXA Other and unspecified overexertion or strenuous movements or postures, initial encounter; Z79.82 Long term (current) use of aspirin; Z79.4 Long term (current) use of insulin; E78.5 Hyperlipidemia, unspecified; I10 Essential (primary) hypertension; F17.210 Nicotine dependence, cigarettes, uncomplicated
CPT/HCPCS: 12345; 73502; 99281; 99282

== ENCOUNTER → 2019-12-15 13:13 | Outpatient (BNVA) | payer MEDICAID, SELFPAY | PROVIDERS: PCP Family Medicine; Visit Provider Specialist | DX: Z96.642 Presence of left artificial hip joint (principal) | CPT/HCPCS: 73502 ==

== ENCOUNTER → 2020-01-05 08:59 | Outpatient (BNVA) | payer MEDICAID, SELFPAY | PROVIDERS: PCP Family Medicine; Visit Provider Family Medicine | DX: E11.22 Type 2 diabetes mellitus with diabetic chronic kidney disease (principal); N18.3 Chronic kidney disease, stage 3 (moderate); Z79.4 Long term (current) use of insulin; E78.5 Hyperlipidemia, unspecified; E29.1 Testicular hypofunction | CPT/HCPCS: 80053; 80061; 83036; 84403 ==

== ENCOUNTER → 2020-01-12 11:45 | Outpatient (BNVA) | payer MEDICAID, SELFPAY | PROVIDERS: PCP Family Medicine; Visit Provider Specialist | DX: Z96.642 Presence of left artificial hip joint (principal) | CPT/HCPCS: 73502 ==

== ENCOUNTER 2020-01-27 15:43 | Outpatient (CLI) | payer MEDICAID, SELFPAY ==
[2020-01-28 16:32] LABS: KAPPA LIGHT CHAIN, FREE, SERUM 38.2 mg/L (3.3-19.4); KAPPA/LAMBDA LIGHT CHAINS FREE 1.46 (0.26-1.65); LAMBDA LIGHT CHAIN, FREE, SERU 26.2 mg/L (5.7-26.3)
== END 2020-01-27 15:44 | disposition home or self-care (01) ==
LOC: LAB 15:51
PROVIDERS: PCP Family Medicine; Visit Provider Internal Medicine Nephrology
DX: E83.52 Hypercalcemia (principal); N18.2 Chronic kidney disease, stage 2 (mild)
CPT/HCPCS: 36415; 83883

== ENCOUNTER → 2020-04-18 14:40 | Outpatient (BNVA) | payer MEDICAID, SELFPAY | PROVIDERS: PCP Family Medicine; Visit Provider Family Medicine | DX: E11.22 Type 2 diabetes mellitus with diabetic chronic kidney disease (principal); Z79.4 Long term (current) use of insulin; L03.314 Cellulitis of groin; N18.30 Chronic kidney disease, stage 3 unspecified | CPT/HCPCS: 80053; 83036 ==

== ENCOUNTER → 2020-04-20 11:46 | Outpatient (BNVA) | payer MEDICAID, SELFPAY | PROVIDERS: PCP Family Medicine; Visit Provider Specialist | DX: Z47.1 Aftercare following joint replacement surgery (principal); Z96.642 Presence of left artificial hip joint; M16.12 Unilateral primary osteoarthritis, left hip | CPT/HCPCS: 73502 ==

== ENCOUNTER 2020-04-21 09:04 | Outpatient (RCR) | payer SELFPAY | END 2020-05-07 23:59 | disposition home or self-care (01) | LOC: SPT 09:04 | PROVIDERS: PCP Family Medicine; Referring Provider Family Medicine; Visit Provider Family Medicine | DX: R26.81 Unsteadiness on feet (principal) | CPT/HCPCS: 97110; 97161 ==

== ENCOUNTER 2020-05-08 06:00 | Outpatient (RCR) | payer SELFPAY | END 2020-06-04 23:59 | disposition home or self-care (01) | LOC: SPT 06:00 | PROVIDERS: PCP Family Medicine; Referring Provider Family Medicine; Visit Provider Family Medicine | DX: R26.81 Unsteadiness on feet (principal) | CPT/HCPCS: 97110 ==

== ENCOUNTER 2020-06-05 06:00 | Outpatient (RCR) | payer SELFPAY | END 2020-07-05 23:59 | disposition home or self-care (01) | LOC: SPT 06:00 | PROVIDERS: PCP Family Medicine; Referring Provider Family Medicine; Visit Provider Family Medicine | DX: R26.81 Unsteadiness on feet (principal) | CPT/HCPCS: 97110 ==

== ENCOUNTER 2020-07-06 06:00 | Outpatient (RCR) | payer SELFPAY | END 2020-08-04 23:59 | disposition home or self-care (01) | LOC: SPT 06:00 | PROVIDERS: PCP Family Medicine; Referring Provider Family Medicine; Visit Provider Family Medicine | DX: R26.81 Unsteadiness on feet (principal) | CPT/HCPCS: 97110; 97112 ==

== ENCOUNTER 2020-07-27 12:12 | Outpatient (CLI) | payer MEDICAID, SELFPAY ==
[2020-07-27 12:54] LABS: Ammonia 36 umol/L (16-60)
[2020-07-27 13:20] LABS: Thyroid Stimulating Hormone 0.71 uIU/mL (0.27-4.20); Vitamin B12 774 pg/mL (232-1245)
== END 2020-07-27 12:13 | disposition home or self-care (01) ==
LOC: LAB 12:19
PROVIDERS: PCP Family Medicine; Visit Provider Family Medicine
DX: F33.3 Major depressive disorder, recurrent, severe with psychotic symptoms (principal)
CPT/HCPCS: 82140; 82607; 84443

== ENCOUNTER 2020-08-05 06:00 | Outpatient (RCR) | payer SELFPAY | END 2020-09-04 23:59 | disposition home or self-care (01) | LOC: SPT 06:00 | PROVIDERS: PCP Family Medicine; Referring Provider Family Medicine; Visit Provider Family Medicine | DX: R26.81 Unsteadiness on feet (principal) | CPT/HCPCS: 97110 ==

== ENCOUNTER 2020-09-25 14:53 | Inpatient (IN) | payer MEDICAID, SELFPAY ==
[2020-09-25] VITALS (7 sets, daily range): BP systolic 134–157; BP diastolic 64–78; PULSE 87–107; RESP 16–18; TEMP 36.9–37.1; O2SAT 93–97; BMI 30.4
--- NOTE | 2020-09-25 15:52 | XRR_ITS ---
PROCEDURE INFORMATION: Exam: XR Left Foot Exam date and time: 09/25/2020 3:52 PM Age: 59 years old Clinical indication: Pain and condition or disease; Other: Infection; Foot and toes; Left TECHNIQUE: Imaging protocol: XR Left foot. Views: 3 or more views. Total images: 3 COMPARISON: CR Foot 3 views, LEFT* [id number] 05/27/2018 2:26 PM FINDINGS: Bones/joints: Status post amputation of the 2nd and 3rd digits. Osteopenia/osteoporosis. No radiographically visible active osteolytic destructive process. No visible fracture, subluxation, or dislocation. Soft tissues: Soft tissue swelling 4th digit. No visible soft tissue emphysema or radiopaque foreign body. Vasculature: Arteriosclerosis of diabetes mellitus. XR/XR foot LT min 3V* [id number] IMPRESSION: 1. Soft tissue swelling of the 4th digit. 2. No radiographically visible active osteolytic destructive process.
--- NOTE | 2020-09-25 16:42 | ED_ITS ---
HPI - Wound/Laceration General: Chief Complaint: Wound/Laceration Stated Complaint: L. Toe Complications Time Seen by Provider: 09/25/20 16:31 History of Present Illness: HPI narrative: The patient is a 59-year-old male with past medical history type 2 diabetes and amputation of toes who comes to the ER complaining of infection to left fourth toe for the past month. He says it started after clipping his nails and he was seen at an urgent care center, given Keflex, and the infection worsened. He saw his primary care physician today who recommended he come to the ER for IV antibiotics and admission. He has had toes 2 and 3 amputated from the left foot already and the fourth toe is the problem today. He also has cellulitis to his left leg. Onset (ago): month(s) (1) Place: home Review of Systems General: Reports: 10 or more systems reviewed and unremarkable except in HPI and below Const: Denies: fatigue Eyes: Denies: change in vision, blurry vision or eye redness ENMT: Denies: throat pain, swelling of lips/tongue, ear or mastoid pain or nasal congestion Card: Denies: chest pain, palpitations, irregular heart rhythm, edema, dyspnea on exertion or orthopnea Resp: Denies: dyspnea, productive cough or non-productive cough GI: Denies: abdominal pain, diarrhea or GI cramping : Denies: flank pain, urinary frequency or urinary urgency Musc: Denies: neck pain, back pain, extremity pain, joint pain, joint redness, limited range of motion or muscle weakness Skin/Breast: Reports: rash and other (Left leg cellulitis and cellulitis to the left fourth toe.); Denies: pruritus, erythema, skin pain or skin tenderness Neuro: Denies: headache(s), numbness in extremities, weakness in extremities, sensory changes, difficulty walking, dizziness, confusion or Slurred speech present Psych: Denies: anxiety or depression Endo: Denies: polyuria All/Imm: Denies: urticaria, throat swelling or tongue swelling PFSH ED PFSH: Medical History Abnormal cardiovascular stress test Dyslipidemia Essential hypertension History of amputation of toe Hypotestosteronemia in male Low back pain radiating down leg Major depressive disorder Nontraumatic hematoma of soft tissue Tachycardia Surgical History History of eye surgery Status post vasectomy Family History Other CAD (coronary artery disease) Cancer Diabetes Hypertension Social History Smoking and tobacco status: current every day smoker cigarettes Packs smoked per day: 1 Alcohol intake: former Physical Exam Const: COMMON NORMALS: no acute distress, average body habitus, patient oriented x3, no limitations, healthy appearing, alert and well nourished GENERAL APPEARANCE: cooperative, comfortable, well kempt and well developed ORIENTATION/CONSCIOUSNESS: Yes awake, Yes oriented to person, Yes oriented to place and Yes oriented to time HENMT: COMMON NORMALS: normocephalic, external ears normal and Normal external nose present HEAD & SCALP: normal to inspection and normocephalic NOSE: No rmal external nose present EXTERNAL EAR: Yes external ears normal MOUTH: Normal oral and palatal mucosa present THROAT: posterior oropharynx normal Eye: COMMON NORMALS: Equal, round and reactive pupils present and EOMs intact bilaterally GENERAL EYE: appearance normal, both eyes and all related structures PUPIL: Yes Equal, round and reactive pupils present Neck/C-Spine: COMMON NORMALS: full ROM, no lymphadenopathy, no meningeal signs and no JVD GENERAL: Yes normal visual inspection Lymph: LYMPHATIC: no lymphadenopathy noted Chest: COMMONS NORMALS: normal inspection of the chest and normal palpation of entire chest wall Resp: COMMON NORMALS: normal respiratory effort, No retractions, No use of accessory muscles, clear to auscultation bilaterally and percussion normal EFFORT & INSPECTION: Yes able to speak in complete sentences AUSCULTATION: clear to auscultation bilaterally PERCUSSION: percussion normal Cardio: COMMON NORMALS: no JVD, regular rate, regular rhythm, S1 normal heart sound present, S2 normal heart sound present and Peripheral pulses 2+ throughout RATE: regular rate RHYTHM: regular rhythm HEART SOUNDS: S1 normal heart sound present and S2 normal heart sound present PERIPHERAL PULSES: Peripheral pulses 2+ throughout GI: COMMON NORMALS: Normal to inspection, nondistended, normoactive bowel sounds present, Soft to palpation, non-tender and no masses INSPECTION: Yes normal to inspection PALPATION: Yes Soft to palpation : COMMON NORMALS: Yes no CVA tenderness BLADDER/KIDNEY EXAM: Yes no CVA tenderness Back/Pelvis: COMMON NORMALS: no CVA tenderness, thoracic and lumbar spine normal to inspection, no thoracic nor lumbar tenderness and thoraco-lumbar ROM normal Extremity: COMMON NORMALS: normal to inspection, full ROM, capillary refill normal, no joint enlargement and no pedal edema GENERAL: Yes normal exam except as noted Neuro: COMMON NORMALS: patient oriented x3, CN's II-XII intact bilaterally, moves all extremities, no focal motor deficits, no sensory deficits noted and gait normal SENSORIUM/ORIENTATION: Yes alert, Yes oriented to person, Yes oriented to place and Yes oriented to time MENINGEAL SIGNS: Yes no meningeal signs Psych: COMMON NORMALS: mental status grossly normal, Normal thought process present, cooperative, normal affect and speech normal APPEARANCE: Yes well kempt ATTITUDE: Yes calm SPEECH: Yes normal speech THOUGHT PROCESS: Normal thought process present Skin: COMMON NORMALS: no rashes or lesions noted NARRATIVE SKIN EXAM: Cellulitis to left anterior shearer radiating to ankle. Also open wound and cellulitis to left fourth toe with skin ulceration. Likely diabetic foot ulcer that has been infected. SKIN IMAGES (MALE): 1. Neuro points to left fourth toe ulceration with cellulitis. 2. Left lower extremity cellulitis GENERAL SKIN EXAM: no rashes or lesions noted OTHER: Chronic amputations of left second and third toe. Left fourth toe diabetic foot ulceration grossly infected. Cellulitis to the left lower extremity as well. Course Vital Signs: Vital signs: Vital Signs Temperature 98.5 F 09/25/20 15:05 Pulse Rate 88 09/25/20 19:02 Respiratory Rate 16 09/25/20 20:37 Blood Pressure 157/77 09/25/20 20:37 Pulse Oximetry 93 09/25/20 20:37 MDM - Wound/Laceration MDM Narrative: Medical decision making narrative: Discussed with Dr. Soares who refused to see because it does not have bony involvement. Also discussed with Dr. Dixon who does not perform any procedures below the knee. The patient has a wound on his toe as well as cellulitis. He was given IV antibiotics and admitted to Dr. Goins. Mild leykocytosis. Failed outpatient antibiotics and he is a diabetic. Admit for IV abx and wound care. Lab Data: Labs: Lab Results 09/25/20 09/25/20 09/25/20 Range/Units 17:10 17:10 17:10 WBC 12.0 H (4.0-10.0) 10^3/ uL RBC 5.15 (4.1-5.3) 10^6/u L Hgb 15.0 (11.7-16.6) g/dL Hct 46.5 (42.0-52.0) % MCV 90.3 (80-94) fL MCH 29.1 (28.0-34.0) pg MCHC 32.3 (30.0-36.0) g/dL RDW 12.7 (12.1-15.1) % Plt Count 279 (130-400) 10^3/c mm MPV 11.4 H (7.4-10.4) fL Neut % (Auto) 73.6 % Lymph % (Auto) 13.6 % [place] % (Auto) 11.0 % Eos % (Auto) 1.0 % Baso % (Auto) 0.5 % Neut # (Auto) 8.79 H (1.8-7.7) 10^3/u L Lymph # (Auto) 1.6 (0.8-4.8) 10^3/u L [place] # (Auto) 1.3 H (0.2-0.9) 10^3/u L Eos # (Auto) 0.1 (0.0-0.8) 10^3/u L Baso # (Auto) 0.1 (0.0-0.1) 10^3/u L Nucleated RBC % (a uto) 0 % Nucleated RBCs # 0.0 /100WBC ESR (0-10) mm/hr Sodium 131 L (136-145) mmol/L Potassium 4.7 (3.5-5.1) mmol/L Chloride 95 L (98-107) mmol/L Carbon Dioxide 28 (22-29) mmol/L Anion Gap 12.7 (5-19) BUN 24 H (8-23) mg/dL Creatinine 1.1 (0.7-1.2) mg/dL GFR Calculation 68.3 L (90-130) mL/min Glucose 452 H (65-115) mg/dL Calculated Osmolal ity 296 H (285-295) mOsm/k g Lactic Acid 1.2 (0.5-2.2) mmol/L Calcium 8.9 (8.5-10.5) mg/dL Total Bilirubin 0.3 (0.15-1.2) mg/dL AST 14 (0-40) U/L ALT 14 (0-41) U/L Alkaline Phosphata se 70 (40-130) IU/L C-Reactive Protein 52.2 H (0.0-4.9) mg/L Total Protein 6.8 (6.6-8.7) g/dL Albumin 3.2 L (3.5-5.2) g/dL Globulin 3.6 (1.3-4.6) g/dL 09/25/20 09/25/20 Range/Units 17:10 17:10 WBC (4.0-10.0) 10^3/ uL RBC (4.1-5.3) 10^6/u L Hgb (11.7-16.6) g/dL Hct (42.0-52.0) % MCV (80-94) fL MCH (28.0-34.0) pg MCHC (30.0-36.0) g/dL RDW (12.1-15.1) % Plt Count (130-400) 10^3/c mm MPV (7.4-10.4) fL Neut % (Auto) % Lymph % (Auto) % [place] % (Auto) % Eos % (Auto) % Baso % (Auto) % Neut # (Auto) (1.8-7.7) 10^3/u L Lymph # (Auto) (0.8-4.8) 10^3/u L [place] # (Auto) (0.2-0.9) 10^3/u L Eos # (Auto) (0.0-0.8) 10^3/u L Baso # (Auto) (0.0-0.1) 10^3/u L Nucleated RBC % (a uto) % Nucleated RBCs # /100WBC ESR 62 H (0-10) mm/hr Sodium (136-145) mmol/L Potassium (3.5-5.1) mmol/L Chloride (98-107) mmol/L Carbon Dioxide (22-29) mmol/L Anion Gap (5-19) BUN (8-23) mg/dL Creatinine (0.7-1.2) mg/dL GFR Calculation (90-130) mL/min Glucose (65-115) mg/dL Calculated Osmolal ity (285-295) mOsm/k g Lactic Acid (0.5-2.2) mmol/L Calcium (8.5-10.5) mg/dL Total Bilirubin (0.15-1.2) mg/dL AST (0-40) U/L ALT (0-41) U/L Alkaline Phosphata se (40-130) IU/L C-Reactive Protein 51.8 H (0.0-4.9) mg/L Total Protein (6.6-8.7) g/dL Albumin (3.5-5.2) g/dL Globulin (1.3-4.6) g/dL Discharge Plan Discharge Patient Disposition: Admitted As Inpatient Admit Provider: Jessica Goins Clinical Impression: Diabetic foot ulcer, Cellulitis Condition: Stable Coding Level of Care Code ED Beam Dyer Operator for Chg Fwd Exam Comprehensive
[2020-09-25] MEDS: vancomycin 1,250 MG/250 ML PIGGYBACK 200 MG IV (17:20)
[2020-09-25 17:22] LABS: Basophils # 0.1 10^3/uL (0.0-0.1); Basophils % 0.5 %; Eosinophils # 0.1 10^3/uL (0.0-0.8); Hematocrit 46.5 % (42.0-52.0); Lymphocytes # 1.6 10^3/uL (0.8-4.8); Lymphocytes % 13.6 %; Mean Corpuscular HGB Conc 32.3 g/dL (30.0-36.0); Mean Corpuscular Hemoglobin 29.1 pg (28.0-34.0); Mean Corpuscular Volume 90.3 fL (80-94); Mean Platelet Volume 11.4 fL (7.4-10.4); Monocytes # 1.3 10^3/uL (0.2-0.9); Neutrophils # 8.79 10^3/uL (1.8-7.7); Neutrophils % 73.6 %; Nucleated Red Blood Cells % 0 %; Platelet Count 279 10^3/cmm (130-400); Red Blood Count 5.15 10^6/uL (4.1-5.3); Red Cell Distribution Width 12.7 % (12.1-15.1)
[2020-09-25 17:55] LABS: Lactic Sepsis W/Reflex 1.2 mmol/L (0.5-2.2)
[2020-09-25 17:56] LABS: Alanine Aminotransferase 14 U/L (0-41); Albumin Level 3.2 g/dL (3.5-5.2); Alkaline Phosphatase 70 IU/L (40-130); Anion Gap 12.7 (5-19); Aspartate Amino Transferase 14 U/L (0-40); Blood Urea Nitrogen 24 mg/dL (8-23); C Reactive Protein 52.2 mg/L (0.0-4.9); Calcium 8.9 mg/dL (8.5-10.5); Carbon Dioxide 28 mmol/L (22-29); Chloride 95 mmol/L (98-107); Globulin 3.6 g/dL (1.3-4.6); Glomerular Filtration Rate 68.3 mL/min (90-130); Glucose 452 mg/dL (65-115); Osmolality Calculated 296 mOsm/kg (285-295); Potassium 4.7 mmol/L (3.5-5.1); Sodium 131 mmol/L (136-145); Total Bilirubin 0.3 mg/dL (0.15-1.2); Total Protein 6.8 g/dL (6.6-8.7)
--- NOTE | 2020-09-25 19:49 | PM.HP ---
Providers/Chief Complaint Primary Care Provider: Juany Guajardo DO Chief Complaint: L. Toe Complications History of Present Illness Marquis Ballard is a 59 year old male who has history of poorly controlled type 2 diabetes takes Victoza and Tresiba at home, does not check his blood sugar, history of right and left toe amputations, presented today for worsening of left fourth toe infection. Patient is stating that about 3 weeks ago he was trying to cut his nail, he cut his nail too short which got infected later on, he was seen at urgent care clinic on 09/08 was prescribed Keflex, he is denying fever, shortness of breath, chest pain, nausea, vomiting, diaphoresis. But he is noticing that redness has migrated from toes towards his ankle uptil left knee. He does not see podiatry because his Medicare will not cover podiatry visits. He was sent to the ER from urgent care today because of worsening of cellulitis. Diagnosis in the ER revealed progressive cellulitis, no signs of sepsis, I have requested CRP, ESR, foot x-ray and started him on vancomycin and Zosyn, Dr. Dixon is on-call who does not do toe amputations, patient has requested to stay at [facility] and get antibiotics for now, he is reluctant to be transferred, requesting Dr. Flores who did his previous toe amputations. Patient is stating that he does not check his blood sugar on daily basis. Review of Systems Const: Denies: fever(s), chills, body aches or fatigue Eyes: Denies: change in vision ENMT: Denies: throat pain Card: Denies: chest pain Resp: Denies: dyspnea GI: Denies: abdominal pain : Denies: flank pain Musc: Reports: extremity swelling and muscle cramps; Denies: neck pain Skin/Breast: Reports: erythema, skin tenderness, skin swelling, new lesions, non-healing lesions, lesions, changes in skin color and jaundice; Denies: rash Neuro: Denies: headache(s) Psych: Reports: anxiety Endo: Denies: polyuria [place]/Lymph: Denies: easy bruising All/Imm: Denies: urticaria Medications/Allergies Home Medications Medication Instructions Recorded Confirmed Last Taken Type lisinopril 5 mg tablet 5 mg PO DAILY 06/25/19 09/25/20 09/25/20 History metoprolol tartrate 25 mg tablet 25 mg PO BID #180 tab 09/27/19 09/25/20 09/25/20 Rx insulin degludec 100 unit/mL (3 26 unit SUBCUT DAILY #3 ml 09/28/19 09/25/20 09/24/20 Rx mL) subcutaneous pen liraglutide 0.6 mg/0.1 mL (18 mg/3 1.8 mg SUBCUT DAILY #9 ml 09/28/19 09/25/20 09/24/20 Rx mL) subcutaneous pen injector beta carotene 25,000 unit PO DAILY 10/06/19 09/25/20 09/25/20 History cholecalciferol (vitamin D3) 25 mcg PO DAILY 10/06/19 09/25/20 09/25/20 History [Vitamin D3] multivitamin 1 tab PO DAILY 10/06/19 09/25/20 09/25/20 History omega 5-jnk-xpg-fish oil [Fish Oil] 1 cap PO BID 10/06/19 09/25/20 09/25/20 History acetaminophen [Tylenol Extra 500 mg PO TID PRN #0 tab 10/27/19 09/25/20 10/24/19 Rx Strength] cetirizine 10 mg capsule 10 mg PO DAILY 02/09/20 09/25/20 09/25/20 History atorvastatin 40 mg tablet 40 mg PO DAILY #30 tab 02/21/20 09/25/20 09/24/20 Rx metformin 1,000 mg tablet 1,000 mg PO BID #60 tab 07/17/20 09/25/20 09/25/20 Rx methocarbamol 500 mg tablet 500 mg PO BID PRN #60 tab 07/17/20 09/25/20 09/25/20 Rx mupirocin 2 % topical ointment 1 applic TOPICAL BID 3 Days #15 g 09/08/20 09/25/20 Unknown Rx duloxetine 60 mg capsule,delayed 60 mg PO BID #180 cap 09/11/20 09/25/20 09/25/20 Rx release Depo-Testosterone 200 mg IM Q14D 09/25/20 09/25/20 Unknown History Tricor 145 mg PO DAILY 09/25/20 09/25/20 09/24/20 History gabapentin 400 mg PO BID 09/25/20 09/25/20 09/25/20 History Allergies Allergy/AdvReac Type Severity Reaction Status Date / Time oseltamivir [From Tamiflu] Allergy ADR-Nausea Verified 09/25/20 15:15 triethanolamine Allergy ALGY-Rash Verified 09/25/20 15:15 [From Cerumenex] NSAIDS (Non-Steroidal AdvReac Mild Unknown Verified 09/25/20 15:15 Anti-Inflamma PFSH Acute PFSH: Medical History Abnormal cardiovascular stress test Dyslipidemia Essential hypertension History of amputation of toe Hypotestosteronemia in male Low back pain radiating down leg Major depressive disorder Nontraumatic hematoma of soft tissue Tachycardia Surgical History History of eye surgery Status post vasectomy Family History Other CAD (coronary artery disease) Cancer Diabetes Hypertension Social History Smoking and tobacco status: current every day smoker cigarettes Packs smoked per day: 1 Alcohol intake: former Vitals/I&O/Wt Last Vital Signs Temp 98.5 F 09/25/20 15:05 Pulse 88 09/25/20 19:02 Resp 17 09/25/20 19:02 BP 153/64 09/25/20 19:02 Pulse Ox 95 09/25/20 19:02 Weight last 48 hrs Weight 93.44 kg Physical Exam Narrative: EXAM NARRATIVE: Cooperative pleasant middle-aged male who appears stated age Sitting comfortably in his bed Awake alert oriented x3 GCS 15 S1, S2 sinus rhythm No signs of heart failure Distended abdomen with obesity nontender no signs of peritonitis EOMI, PERRLA No joint swelling Right second toe amputation, left second and third toe amputation, left fourth toe black eschar on dorsal side of toe, nonpurulent cellulitis extending up to left knee, area demarcated, nontender nonpurulent with no streaky appearance Left anterior shearer hyperemia noted No vascular compromise of lower extremities Bilateral breath sounds without adventitious rhonchi or crackles Data : 09/25/20 17:10 09/25/20 17:10 Micro: Microbiology 09/25/20 17:10 Blood Culture - Preliminary Blood SPECIMEN COLLECTED 09/25/20 17:10 Blood Culture - Preliminary Blood SPECIMEN COLLECTED A&P Assessment and plan (1) Cellulitis: Status: Acute (2) Poorly controlled diabetes mellitus: Status: Acute Additional A&P Information Gangrene of left fourth toe Progressive cellulitis extending up to left knee Start broad-spectrum antibiotics Requested ESR, CRP no active signs of sepsis Foot x-ray did not reveal osteomyelitis changes, will request CT of foot and leg because of progressive cellulitis changes, he is afebrile, normal lactic acid We will keep him n.p.o. after midnight Opioids with bowel regimen Dr. Flores notified and consulted Poorly controlled type 2 diabetes for which I would use moderate dose sliding scale with every 4 Accu-Cheks Keep him on normal saline for now Full code N.p.o. DVT prophylaxis: SCDs Patient is stating that he does not go to podiatry for wound care because his Medicare is not able to cover podiatry visits, kindly readdress before discharge if you could assist him in any way has this is of utmost importance to have appropriate wound care follow-up Attestations Medical Necessity Statement*: Anticipating stay in the hospital cross more than 2 midnights for gangrene of left fourth toe Time Spent in Patient Care: (>than 50% of time spent in counselling and/or direct pt care on unit). 35mins Coding Level of Care Code Acute Supervisor [employer] Room for Osmar Smith Diagnoses Cellulitis L03.90 Poorly controlled diabetes mellitus E11.65
--- NOTE | 2020-09-25 20:24 | CTR_ITS ---
PROCEDURE INFORMATION: Exam: CT Left Lower Extremity With Contrast, Foot Exam date and time: 09/25/2020 8:24 PM Age: 59 years old Clinical indication: Cellulitis and swelling, leg or foot; Left; Additional info: Progressive cellulitis TECHNIQUE: Imaging protocol: CT of the Left lower extremity with intravenous contrast was performed. Exam focused on the foot. Total images: 495 Radiation optimization: All CT scans at this facility use at least one of these dose optimization techniques: automated exposure control; mA and/or kV adjustment per patient size (includes targeted exams where dose is matched to clinical indication); or iterative reconstruction. Contrast material: OMNI 300; Contrast volume: 95 ml; Contrast route: INTRAVENOUS (IV); COMPARISON: CTA AbdA[facility] Runoff Leg [id number] 05/27/2018 2:24 PM RADIATION DOSE METRICS: Total DLP (mGy-cm): 165.99 FINDINGS: Bones/joints: Status amputation of the 2nd and 3rd digits. Suspected small focus of osteolytic destruction that would be consistent with osteomyelitis medial aspect of the terminal phalanx 4th digit. Please review sam image . Soft tissues: Diffuse soft tissue edema consistent with cellulitis. No visible organized abscess, seroma, or hematoma. Marked soft tissue swelling surrounding the 4th digit with subcutaneous emphysema and exposed bone at the level of the terminal phalanx. Suspected small focus of osteolytic destruction of would be consistent with osteomyelitis medial aspect of the terminal phalanx. Please review sam image . Vasculature: Arteriosclerosis of diabetes mellitus. CT/CT foot LT w con [id number] IMPRESSION: 1. Suspected small focus of osteolytic destruction that would be consistent with osteomyelitis medial aspect of the terminal phalanx 4th digit. Please review sam image . 2. Marked soft tissue swelling with subcutaneous emphysema 4th digit. 3. Diffuse cellulitis/edema. 4. Status post amputation of the 2nd and 3rd digits. Radiation Dose CTDIVOL = (mGy): DLP = 165.99 (mGy-cm)
[2020-09-25 20:49] LABS: C Reactive Protein 51.8 mg/L (0.0-4.9)
[2020-09-25] MEDS: iohexol 300 mg/mL 100 mL Btl IV ×2 (21:07→21:26)
[2020-09-25 21:21] LABS: Erythrocyte Sedimentation Rate 62 mm/hr (0-10)
--- NOTE | 2020-09-25 21:38 | PC.NURSE ---
report to Shae BURCH
--- NOTE | 2020-09-25 21:40 | CTR_ITS ---
PROCEDURE INFORMATION: Exam: CT Left Lower Extremity With Contrast; Lower Leg Exam date and time: 09/25/2020 9:40 PM Age: 59 years old Clinical indication: Cellulitis and swelling, leg or foot; Lower leg; Left; Additional info: Hyperemia, progressive cellulitis TECHNIQUE: Imaging protocol: CT of the Left lower extremity with intravenous contrast was performed. Exam focused on the lower leg. Total images: 557 Radiation optimization: All CT scans at this facility use at least one of these dose optimization techniques: automated exposure control; mA and/or kV adjustment per patient size (includes targeted exams where dose is matched to clinical indication); or iterative reconstruction. Contrast material: OMNI 300; Contrast volume: 95 ml; Contrast route: INTRAVENOUS (IV); COMPARISON: CT lower leg LT w con [id number] 09/25/2020 9:02 PM RADIATION DOSE METRICS: Total DLP (mGy-cm): 1046.38 FINDINGS: Bones/joints: No visible acute osseous abnormality within the field of view. Soft tissues: Diffuse soft tissue edema consistent with cellulitis. No visible soft tissue subcutaneous emphysema. No findings at this time raising suspicion for myositis. No definite evidence of fasciitis. No visible loculated fluid collection to suggest the presence of an organized abscess, seroma, or hematoma. Vasculature: Arteriosclerosis of diabetes mellitus. CT/CT lower leg LT w con [id number] IMPRESSION: Cellulitis. Radiation Dose CTDIVOL = (mGy): DLP = 1046.38 (mGy-cm)
--- NOTE | 2020-09-25 22:06 | PC.NURSE ---
tori and karina applied to left foot.
[2020-09-25 22:45] LABS: Glucose Point of Care 494 mg/dL (70-110)
--- NOTE | 2020-09-25 23:01 | PC.PHAR ---
Vancomycin is dosed at 1250mg IVPB every 12 hours to produce a predicted trorugh level of 17.55 (population based pharmacokinetic analysis). A Trough level has been ordered from the lab to be obtained before the fourth dose to confirm and adjust if needed. The Zosyn is dosed at 3.385g, IVPB every 8 hours on the basis of the creatinine clearance of 80.6.
[2020-09-25] MEDS: sodium chloride 0.9% 1,000 ML 75 ML IV (23:11)
[2020-09-25] MEDS: piperacillin-tazobactam 3.375 GM in sodium chloride 0.9% (plus) 50 ML IV (23:54)
[2020-09-26 04:00] VITALS: BP 134/74; PULSE 83; RESP 18; TEMP 36.9; O2SAT 93
[2020-09-26 05:44] LABS: Basophils # 0.1 10^3/uL (0.0-0.1); Basophils % 0.7 %; Eosinophils # 0.2 10^3/uL (0.0-0.8); Eosinophils % 1.3 %; Hematocrit 47.5 % (42.0-52.0); Hemoglobin 15.4 g/dL (11.7-16.6); Lymphocytes # 1.5 10^3/uL (0.8-4.8); Lymphocytes % 13.2 %; Mean Corpuscular HGB Conc 32.4 g/dL (30.0-36.0); Mean Corpuscular Hemoglobin 29.6 pg (28.0-34.0); Mean Corpuscular Volume 91.2 fL (80-94); Mean Platelet Volume 11.2 fL (7.4-10.4); Monocytes # 1.4 10^3/uL (0.2-0.9); Monocytes % 12.3 %; Neutrophils # 8.07 10^3/uL (1.8-7.7); Nucleated Red Blood Cells % 0 %; Platelet Count 277 10^3/cmm (130-400); Red Blood Count 5.21 10^6/uL (4.1-5.3); Red Cell Distribution Width 12.8 % (12.1-15.1); White Blood Count 11.2 10^3/uL (4.0-10.0)
[2020-09-26] MEDS: vancomycin 1,250 MG/250 ML PIGGYBACK 250 MG IV ×2 (05:47→16:03)
[2020-09-26 05:52] LABS: Anion Gap 11.8 (5-19); Blood Urea Nitrogen 19 mg/dL (8-23); Calcium 8.9 mg/dL (8.5-10.5); Carbon Dioxide 28 mmol/L (22-29); Chloride 101 mmol/L (98-107); Glomerular Filtration Rate 76.2 mL/min (90-130); Glucose 174 mg/dL (65-115); Osmolality Calculated 288 mOsm/kg (285-295); Potassium 4.8 mmol/L (3.5-5.1); Sodium 136 mmol/L (136-145)
[2020-09-26 06:55] LABS: Glucose Point of Care 207 mg/dL (70-110)
[2020-09-26 07:09] VITALS: BP 158/81; PULSE 85; RESP 16; TEMP 36.4; O2SAT 93
--- NOTE | 2020-09-26 08:15 | P.CONIM_ITS ---
Providers/Reason For Consult Consulting Physician/Specialty*: General Surgery Dr. Flores Reason for Consult*: Cellulitis left leg Attending Physician: Jonathan Mcdonnell Primary Care Provider: Juany Guajardo DO History of Present Illness History of Present Illness Marquis Ballard is a 59 year old male with history of type 2 diabetes who apparently trimmed his toenails 3 weeks ago and subsequently developed blister and redness. He was seen at our urgent care over the weekend and started on Keflex which initially showed some improvement but subsequently the redness worsened. He complains of pain but denies any fevers or chills. He has already undergone amputation of his right second and left second and third toes. Patient states that Medicare does not pay for trimming of toenails and therefore he has had to try to do them by himself Review of Systems General: Reports: 10 or more systems reviewed and unremarkable except in HPI and below Meds/Allergies Home Medications and Allergies Home Medications Medication Instructions Recorded Confirmed Last Taken Type lisinopril 5 mg tablet 5 mg PO DAILY 06/25/19 09/25/20 09/25/20 History metoprolol tartrate 25 mg tablet 25 mg PO BID #180 tab 09/27/19 09/25/20 09/25/20 Rx insulin degludec 100 unit/mL (3 26 unit SUBCUT DAILY #3 ml 09/28/19 09/25/20 09/24/20 Rx mL) subcutaneous pen liraglutide 0.6 mg/0.1 mL (18 mg/3 1.8 mg SUBCUT DAILY #9 ml 09/28/19 09/25/20 09/24/20 Rx mL) subcutaneous pen injector beta carotene 25,000 unit PO DAILY 10/06/19 09/25/20 09/25/20 History cholecalciferol (vitamin D3) 25 mcg PO DAILY 10/06/19 09/25/20 09/25/20 History [Vitamin D3] multivitamin 1 tab PO DAILY 10/06/19 09/25/20 09/25/20 History omega [id number] oil [Fish Oil] 1 cap PO BID 10/06/19 09/25/20 09/25/20 History acetaminophen [Tylenol Extra 500 mg PO TID PRN #0 tab 10/27/19 09/25/20 10/24/19 Rx Strength] cetirizine 10 mg capsule 10 mg PO DAILY 02/09/20 09/25/20 09/25/20 History atorvastatin 40 mg tablet 40 mg PO DAILY #30 tab 02/21/20 09/25/20 09/24/20 Rx metformin 1,000 mg tablet 1,000 mg PO BID #60 tab 07/17/20 09/25/20 09/25/20 Rx methocarbamol 500 mg tablet 500 mg PO BID PRN #60 tab 07/17/20 09/25/20 09/25/20 Rx mupirocin 2 % topical ointment 1 applic TOPICAL BID 3 Days #15 g 09/08/20 09/25/20 Unknown Rx duloxetine 60 mg capsule,delayed 60 mg PO BID #180 cap 09/11/20 09/25/20 09/25/20 Rx release Depo-Testosterone 200 mg IM Q14D 09/25/20 09/25/20 Unknown History Tricor 145 mg PO DAILY 09/25/20 09/25/20 09/24/20 History gabapentin 400 mg PO BID 09/25/20 09/25/20 09/25/20 History Allergies Allergy/AdvReac Type Severity Reaction Status Date / Time oseltamivir [From Tamiflu] Allergy ADR-Nausea Verified 09/25/20 15:15 triethanolamine Allergy ALGY-Rash Verified 09/25/20 15:15 [From Cerumenex] NSAIDS (Non-Steroidal AdvReac Mild Unknown Verified 09/25/20 15:15 Anti-Inflamma Current Medications Current Medications Generic Name Dose Route Start Last Admin Trade Name Freq PRN Reason Stop Dose Admin Sodium Chloride 1,000 mls @ 75 mls/hr 09/25/20 22:22 09/25/20 23:11 Sodium Chloride 0.9% IV 75 mls/hr .[id number] BRIANA Administration Piperacillin Sod/Tazobactam 50 mls @ 12.5 mls/hr 09/25/20 23:00 09/26/20 04:00 Sod 3.375 gm/ Sodium Chloride IV Infused Q8H BRIANA Infusion Protocol As Directed Vancomycin/PEG/NADA/Lysine/Water 1,250 mg in 250 mls @ 250 mls/hr 09/26/20 05:00 09/26/20 07:31 Vancocin IV Infused Q12H BRIANA Infusion Insulin Aspart 0 unit 09/25/20 22:22 09/25/20 23:10 Insulin Aspart 100 Unit/1 Ml SUBCUT 16 unit WM&BEDTIME BRIANA Administration Protocol PFSH Acute PFSH: Medical History Controlled type 2 diabetes mellitus, with long-term current use of insulin Dyslipidemia Essential hypertension HTN (hypertension), benign Hypotestosteronemia in male Low back pain radiating down leg Major depressive disorder Surgical History History of amputation of toe Right second and left second and third History of eye surgery History of total left hip arthroplasty Status post vasectomy Family History Other CAD (coronary artery disease) Cancer Diabetes Hypertension Social History Smoking and tobacco status: current every day smoker cigarettes Packs smoked per day: 1 Alcohol intake: former Vitals/I&O/Wt Last Vital Signs Temp 97.6 F 09/26/20 07:09 Pulse 85 09/26/20 07:09 Resp 16 09/26/20 07:09 BP 158/81 09/26/20 07:09 Pulse Ox 93 09/26/20 07:09 09/25/20 09/26/20 09/26/20 22:59 06:59 14:59 Intake Total 50 / 50 500 / 500 Output Total 1050 / 1050 Balance -1000 / -1000 500 / 500 Weight last 48 hrs Weight 206 lb Physical Exam Narrative: EXAM NARRATIVE: HEENT: Normocephalic Eye: Sclera /conjunctiva normal Abdomen: Soft to palpation Neurological: Oriented to place person and time Skin: Intact, dry gangrene left fourth toe with cellulitis of left lower extremity Data Micro: Micro: Microbiology 09/25/20 17:10 Blood Culture - Pr eliminary Blood SPECIMEN [facility] 09/25/20 17:10 Blood Culture - Pr eliminary Blood SPECIMEN [facility] A&P Assessment and plan (1) Dry gangrene: 59-year-old male with type 2 diabetes who has cellulitis of the left lower extremity with dry gangrene of left fourth toe. The cellulitis appears to be improved compared to last night when it was initially marked. CT left lower extremity performed last night in the ER showed cellulitis no underlying fluid collections. Patient has been admitted to the hospital for IV vancomycin and Zosyn Plan for amputation left fourth toe under MAC Status: Acute Consult Attestations Medical Necessity Statement: As per attending physician Coding Level of Care Code Acute Capacitor Pack Press Operator for Osmar Smith Diagnoses Dry gangrene I96
[2020-09-26] MEDS: piperacillin-tazobactam 3.375 GM in sodium chloride 0.9% (plus) 50 ML IV ×2 (08:52→17:58)
[2020-09-26] MEDS: metoprolol tartrate 25 mg Tablet PO ×2 (08:52→17:58)
--- NOTE | 2020-09-26 10:29 | PC.CHAP ---
Pastoral Care Encounter/Spiritual Assessment Type of Contact [] Declined qa specialist visit [] Patient/Family/Request visit [] Outpatient visit [] Follow-up visit [] Physician referral [] Code/Alert [x] Routine visit [] Staff referral [] Actively dying [x] Patient sleeping [] Family support [] [] Out of room [] Palliative care [] [] Receiving care in room [] Pre-surgical visit [] Trauma [] Long length of stay [] ICU visit [] Other: Relational/Emotional Strength [] Patient feels connected with others/family/visitors/staff [] Distress [] Loneliness/isolation [] Abandonment Spirituality of Patient [] Person of [place] [] Attends Restoration of their [place] [] Believes in Prayer [] Reads Bible or Hoahaoism materials [] There are Spiritual issues to be addressed College Administrator Interventions [] Prayer [] Active listening [] Non-anxious presence [] Spiritual/emotional support [] Crisis/trauma care [] Spiritual counseling [] Bereavement support [] Provided bereavement packet [] Provided Bible/devotional materials [] Provided toy/stuffed animal, coloring book to patient or family member [] Provided Communion [] Anointing/[place] [] Salvation [] Completed spiritual assessment [] Other: Impact on Illness or Injury [] Angry [] Fearful [] Anxious [] Often cries [] Exhaustion [] Unable to work [] Unable to attend moravian [] Unable to walk/stand [] Unable to read [] Unable to drive [] Unable to eat/drink [] Unable to sleep [] Unable to be with family [] Patient intubated [] Other: Summary Time spent with patient
[2020-09-26 11:37] VITALS: BP 111/70; PULSE 76; RESP 16; TEMP 37.1; O2SAT 99
--- NOTE | 2020-09-26 12:41 | P.PN_ITS ---
Subjective Subjective: Interval history: Denies any new symptoms this morning. Denies chest pain or trouble breathing. Vitals/I&O/Wt Last Vital Signs Temp 98.8 F 09/26/20 11:37 Pulse 76 09/26/20 11:37 Resp 16 09/26/20 11:37 BP 111/70 09/26/20 11:37 Pulse Ox 99 09/26/20 11:37 09/25/20 09/26/20 09/26/20 22:59 06:59 14:59 Intake Total 50 / 50 500 / 500 Output Total 1050 / 1050 400 / 400 Balance -1000 / -1000 100 / 100 Weight last 48 hrs Weight 93.44 kg Physical Exam Const: COMMON NORMALS: no acute distress and patient oriented x3 HENMT: COMMON NORMALS: oropharynx normal Neck/C-Spine: COMMON NORMALS: no JVD Resp: COMMON NORMALS: normal respiratory effort and clear to auscultation bilaterally AUSCULTATION: clear to auscultation bilaterally Cardio: COMMON NORMALS: no JVD, regular rhythm, S1 normal heart sound present, S2 normal heart sound present and No murmurs present (Cardio) RHYTHM: regular rhythm HEART SOUNDS: S1 normal heart sound present and S2 normal heart sound present GI: COMMON NORMALS: Normal to inspection, nondistended, normoactive bowel sounds present, Soft to palpation and non-tender PALPATION: Yes Soft to palpation Extremity: COMMON NORMALS: no joint enlargement and no pedal edema LEFT LOWER EXTREMITY: Yes foot & digits (gangrene, bone exposure L 4th digit) Neuro: COMMON NORMALS: patient oriented x3 and moves all extremities Skin: RASHES: rashes noted (Cellulitis of dorsal foot w improvement, as well as L anterior shearer) Data : 09/26/20 05:04 09/26/20 05:04 Micro: Microbiology 09/25/20 17:10 Blood Culture - Preliminary Blood SPECIMEN COLLECTED 09/25/20 17:10 Blood Culture - Preliminary Blood SPECIMEN COLLECTED A&P Assessment and plan (1) Dry gangrene: Gangrene of the fourth digit of left foot, bone exposure. Appreciate surgery recommendations. They are planning with the patient to proceed with amputation later this afternoon. Discussed concern regarding possible poor wound healing. We will request arterial duplex. A1c. Continue to optimize diabetes. Last A1c in 01.05. Status: Acute (2) Cellulitis: Improving. Continue IV antibiotics with Zosyn, vancomycin. Given cellulitis left proximal on the foot, as well as shearer below the knee dis cussed need for continued antibiotic therapy post amputation. Status: Acute (3) Poorly controlled diabetes mellitus: Continues on sliding scale. Resume long-acting insulin. Will resume at slightly lower dose, escalate as needed. Consistent carbohydrate diet. Check A1c. Status: Acute (4) Nicotine dependence, cigarettes, with unspecified nicotine-induced di sorders: Encourage cessation. Nicotine replacement as needed. Status: Acute Additional A&P Information HTN HLD Depression Chronic low back pain radiating to the leg Other chronic problems Attestations Medical Necessity Statement*: Continue admission for assessment management of diabetic foot infection, fourth left toe gangrene with surrounding cellulitis, proximal cellulitis with history of poorly controlled diabetes. Coding Level of Care Code Acute Tape Cutter for [facility] Luis Diagnoses Dry gangrene I96 Cellulitis L03.90 Poorly controlled diabetes mellitus E11.65 Nicotine dependence, cigarettes, with unspecified nicotine-induced disorders F17.219
--- NOTE | 2020-09-26 12:53 | USCV_ITS ---
Marquis Ballard Age: 59 Gender: M : 1960 Exam Date: 09/26/2020 13:36 Ordering Phys: Jonathan Mcdonnell MD Technologist: Exam Location: [facility] [place] Indication: GANG GREEN TOE ON LT Risk Factors: DIABETIC Previous Vascular Surgery: RIGHT LEFT BP: 125.0 / 80.00 BP: 125.0/ 80.00 0 0 Waveform Velocity (cm/s) Velocity (cm/s) Waveform Iliac Prox 165.5 Triphasic Iliac Mid 94.5 Triphasic Iliac Distal Triphasic 88.3 CARE MANAGEMENT ASSOCIATE 87.2 Triphasic SFA Prox 88.3 Triphasic SFA Mid 91.7 Triphasic SFA Dist 97.8 Triphasic POP 117.4 Triphasic AROMATHERAPIST 93.0 Monophasic DPA 84.2 Monophasic LYNNETTE 1.2 FINDINGS Normal resting LYNNETTE on the left side. Normal Doppler flow velocities Monophasic low velocity Doppler waveform in the distal posterior tibial artery. CONCLUSIONS No evidence of any significant arterial obstruction, based on the above findings. Abnormal Doppler waveform in the posterior tibial artery, may suggest distal small vessel disease Dr Chuyita Sotelo MD [facility] (Electronically Signed) Final Date: 26 September 2020 19:28 S
[2020-09-26 13:18] LABS: Estmated Average Glucose 312; Hemoglobin A1C 12.5 % (4.0-6.0)
[2020-09-26] MEDS: sodium chloride 0.9% 1,000 ML 75 ML IV (13:54)
[2020-09-26 15:07] VITALS: BP 146/74; PULSE 85; RESP 16; TEMP 36.9; O2SAT 96
[2020-09-26 17:08] LABS: Glucose Point of Care 187 mg/dL (70-110)
[2020-09-26] MEDS: gabapentin 400 mg Capsule PO (17:58)
[2020-09-26] MEDS: duloxetine 60 mg Capsule PO (17:58)
[2020-09-26 19:51] VITALS: BP 143/74; PULSE 93; RESP 18; TEMP 37.2; O2SAT 95
[2020-09-26 21:22] LABS: Glucose Point of Care 323 mg/dL (70-110)
[2020-09-26 23:40] VITALS: BP 126/69; PULSE 81; RESP 18; TEMP 37.6; O2SAT 94
[2020-09-27] VITALS (11 sets, daily range): BP systolic 92–151; BP diastolic 55–83; PULSE 61–85; RESP 8–18; TEMP 36.2–37.1; O2SAT 94–98
[2020-09-27] MEDS: piperacillin-tazobactam 3.375 GM in sodium chloride 0.9% (plus) 50 ML IV ×3 (00:52→22:03)
[2020-09-27] MEDS: vancomycin 1,250 MG/250 ML PIGGYBACK 200 MG IV (04:37)
[2020-09-27] MEDS: sodium chloride 0.9% 1,000 ML 75 ML IV (04:37)
[2020-09-27 05:54] LABS: Basophils # 0.1 10^3/uL (0.0-0.1); Basophils % 0.7 %; Eosinophils # 0.2 10^3/uL (0.0-0.8); Eosinophils % 1.4 %; Hematocrit 42.3 % (42.0-52.0); Hemoglobin 13.8 g/dL (11.7-16.6); Lymphocytes # 1.5 10^3/uL (0.8-4.8); Lymphocytes % 13.8 %; Mean Corpuscular HGB Conc 32.6 g/dL (30.0-36.0); Mean Corpuscular Hemoglobin 29.2 pg (28.0-34.0); Mean Corpuscular Volume 89.6 fL (80-94); Mean Platelet Volume 11.6 fL (7.4-10.4); Monocytes # 1.4 10^3/uL (0.2-0.9); Monocytes % 12.7 %; Neutrophils # 7.53 10^3/uL (1.8-7.7); Neutrophils % 70.9 %; Nucleated Red Blood Cells % 0 %; Platelet Count 282 10^3/cmm (130-400); Red Blood Count 4.72 10^6/uL (4.1-5.3); Red Cell Distribution Width 12.6 % (12.1-15.1); White Blood Count 10.6 10^3/uL (4.0-10.0)
[2020-09-27 06:12] LABS: Anion Gap 11.7 (5-19); Blood Urea Nitrogen 21 mg/dL (8-23); Calcium 8.3 mg/dL (8.5-10.5); Carbon Dioxide 25 mmol/L (22-29); Chloride 101 mmol/L (98-107); Glomerular Filtration Rate 68.3 mL/min (90-130); Glucose 271 mg/dL (65-115); Osmolality Calculated 289 mOsm/kg (285-295); Potassium 4.7 mmol/L (3.5-5.1); Sodium 133 mmol/L (136-145)
[2020-09-27 06:25] LABS: Glucose Point of Care 282 mg/dL (70-110)
[2020-09-27] MEDS: atorvastatin 40 mg Tablet PO (09:21)
[2020-09-27] MEDS: metoprolol tartrate 25 mg Tablet PO ×2 (09:21→17:19)
[2020-09-27] MEDS: sennosides-docusate Tablet 1 TAB PO (09:21)
[2020-09-27] MEDS: fenofibrate 145 mg Tablet PO (09:21)
[2020-09-27] MEDS: duloxetine 60 mg Capsule PO ×2 (09:22→17:19)
[2020-09-27] MEDS: gabapentin 400 mg Capsule PO ×2 (09:22→17:19)
--- NOTE | 2020-09-27 10:03 | PC.NURSE ---
PT TAKEN TO OR FOR SURGERY
--- NOTE | 2020-09-27 10:14 | P.PN_ITS ---
Subjective Subjective: Interval history: No issues overnight Vitals/I&O/Wt Last Vital Signs Temp 98.7 F 09/27/20 07:05 Pulse 78 09/27/20 07:05 Resp 18 09/27/20 07:05 BP 144/83 09/27/20 07:05 Pulse Ox 94 09/27/20 07:05 09/26/20 09/27/20 09/27/20 22:59 06:59 14:59 Intake Total 660 / 3690 1480 / 3690 300 / 300 Output Total 300 / 1900 1200 / 1900 350 / 350 Balance 360 / 1790 280 / 1790 -50 / -50 Weight last 48 hrs Weight 206 lb Physical Exam Narrative: EXAM NARRATIVE: Left lower extremity: Cellulitis improved, dry eschar left fourth toe Data : 09/27/20 04:48 09/27/20 04:48 Micro: Microbiology 09/25/20 17:10 Blood Culture - Preliminary Blood NEGATIVE TO DATE 09/25/20 17:10 Blood Culture - Preliminary Blood NEGATIVE TO DATE A&P Assessment and plan (1) Dry gangrene: 59-year-old male with type 2 diabetes who has cellulitis of the left lower extremity with dry gangrene of left fourth toe. The cellulitis appears to be improved Plan for amputation left fourth toe under MAC Status: Acute Attestations Medical Necessity Statement*: Gangrene left fourth toe Coding Level of Care Code Acute Engineering Group Leader for Osmar Smith Diagnoses Dry gangrene I96
--- NOTE | 2020-09-27 10:14 | ANES.PREANE2 ---
Pre-Anesthetic Assessment Pre-Anesthetic Assessment: Height/Weight: Height 1.75 m Weight 93.44 kg Temp Pulse Resp BP Pulse Ox 98.7 F 78 18 144/83 94 09/27/20 07:05 09/27/20 07:05 09/27/20 07:05 09/27/20 07:05 09/27/20 07:05 Preop Diagnosis: dry gangrene 4th left toe Proposed Procedure: Operation Date: 09/26/20 11:00 Proposed Procedures p amputation left 4th toe(Left) - Ke Flores MD Operation Date: 09/27/20 14:35 Proposed Procedures p Amputation Lower Extremity(Left) - Ke Flores MD Familial anesthetic complications: none Was Beta Sylvie taken within 24 hours: Yes Was Clonidine taken within 24 hours: N/A Last intake: > 8 hrs Social: Social History: Tobacco and No alcohol Exam: Pre-Anes Outpt Exam: alert, oriented x 3, clear to auscultation bilaterally and regular rate & rhythm Airway: Cervical ROM: WNL MP: 3 Dentition: Chipped CV/HEM: CV/HEM: HTN Metabolic: Metabolic: DM and Hyperlipidemia Anesthetic Plan: ASA status: 3 Anesthesia: MAC Risk of > 500 ml blood loss (7ml/kg in children): No Meds/Allergies Current Medications: Current Medications Generic Name Dose Route Start Last Admin Trade Name Lucasq PRN Reason Stop Dose Admin Atorvastatin Calci um 40 mg 09/27/20 09:00 09/27/20 09:21 Atorvastatin 40 Mg Tablet PO 40 mg DAILY BRIANA Administration Duloxetine HCl 60 mg 09/26/20 18:00 09/27/20 09:22 Duloxetine 60 Mg Capsule PO 60 mg BID BRIANA Administration Fenofibrate 145 mg 09/27/20 09:00 09/27/20 09:21 Fenofibrate 145 Mg Tablet PO 145 mg DAILY BRIANA Administration Gabapentin 400 mg 09/26/20 18:00 09/27/20 09:22 Gabapentin 400 M g Capsule PO 400 mg BID BRIANA Administration Sodium Chloride 1,000 mls @ 75 ml s/hr 09/25/20 22:22 09/27/20 04:37 Sodium Chloride 0.9% IV 75 mls/hr .[id number] BRIANA Administration Piperacillin Sod/T azobactam 50 mls @ 12.5 mls /hr 09/25/20 23:00 09/27/20 09:22 Sod 3.375 gm/ So dium Chloride IV 12.5 mls/hr Q8H BRIANA Administration Protocol As Directed Vancomycin/PEG/NAD A/Lysine/Water 1,250 mg in 250 m ls @ 250 mls/hr 09/26/20 05:00 09/27/20 07:48 Vancocin IV Infused Q12H BRIANA Infusion Insulin Aspart 0 unit 09/25/20 22:22 09/27/20 09:11 Insulin Aspart 1 00 Unit/1 Ml SUBCUT 10 unit WM&BEDTIME BRIANA Administration Protocol Metoprolol Tartrat e 25 mg 09/26/20 09:00 09/27/20 09:21 Metoprolol Tartr ate 25 Mg Tablet PO 25 mg BID BRIANA Administration Non-Formulary Medi cation 20 unit 09/26/20 21:00 09/26/20 22:23 Insulin Degludec [Tresiba Flextouc h U-100] SUBCUT Not Given BEDTIME BRIANA Senna/Docusate Sod ium 1 tab 09/26/20 09:00 09/27/20 09:21 Sennosides-Docus ate Tablet PO 1 tab DAILY BRIANA Administration PFSH Anesthesia PFSH: Medical History Controlled type 2 diabetes mellitus, with long-term current use of insulin Dyslipidemia Essential hypertension HTN (hypertension), benign Hypotestosteronemia in male Low back pain radiating down leg Major depressive disorder Surgical History History of amputation of toe Right second and left second and third History of eye surgery History of total left hip arthroplasty Status post vasectomy Family History Other CAD (coronary artery disease) Cancer Diabetes Hypertension Social History Smoking and tobacco status: current every day smoker cigarettes Packs smoked per day: 1 Alcohol intake: former Data Anesthesia CBC & Chem 7: 09/27/20 04:48 09/27/20 04:48 Other Labs: Laboratory Results - last 48 hr 09/25/20 09/25/20 09/25/20 17:10 17:10 17:10 WBC 12.0 H RBC 5.15 Hgb 15.0 Hct 46.5 MCV 90.3 MCH 29.1 MCHC 32.3 RDW 12.7 Plt Count 279 MPV 11.4 H Neut % (Auto) 73.6 Lymph % (Auto) 13.6 [place] % (Auto) 11.0 Eos % (Auto) 1.0 Baso % (Auto) 0.5 Neut # (Auto) 8.79 H Lymph # (Auto) 1.6 [place] # (Auto) 1.3 H Eos # (Auto) 0.1 Baso # (Auto) 0.1 Nucleated RBC % (auto) 0 Nucleated RBCs # 0.0 ESR Sodium 131 L Potassium 4.7 Chloride 95 L Carbon Dioxide 28 Anion Gap 12.7 BUN 24 H Creatinine 1.1 GFR Calculation 68.3 L Glucose 452 H POC Glucose Estimat Average Glucose Hemoglobin A1c Calculated Osmolality 296 H Lactic Acid 1.2 Calcium 8.9 Total Bilirubin 0.3 AST 14 ALT 14 Alkaline Phosphatase 70 C-Reactive Protein 52.2 H Total Protein 6.8 Albumin 3.2 L Globulin 3.6 09/25/20 09/25/20 09/25/20 17:10 17:10 22:41 WBC RBC Hgb Hct MCV MCH MCHC RDW Plt Count MPV Neut % (Auto) Lymph % (Auto) [place] % (Auto) Eos % (Auto) Baso % (Auto) Neut # (Auto) Lymph # (Auto) [place] # (Auto) Eos # (Auto) Baso # (Auto) Nucleated RBC % (auto) Nucleated RBCs # ESR 62 H Sodium Potassium Chloride Carbon Dioxide Anion Gap BUN Creatinine GFR Calculation Glucose POC Glucose 494 H Estimat Average Glucose Hemoglobin A1c Calculated Osmolality Lactic Acid Calcium Total Bilirubin AST ALT Alkaline Phosphatase C-Reactive Protein 51.8 H Total Protein Albumin Globulin 09/26/20 09/26/20 09/26/20 05:04 05:04 05:04 WBC 11.2 H RBC 5.21 Hgb 15.4 Hct 47.5 MCV 91.2 MCH 29.6 MCHC 32.4 RDW 12.8 Plt Count 277 MPV 11.2 H Neut % (Auto) 72.0 Lymph % (Auto) 13.2 [place] % (Auto) 12.3 Eos % (Auto) 1.3 Baso % (Auto) 0.7 Neut # (Auto) 8.07 H Lymph # (Auto) 1.5 [place] # (Auto) 1.4 H Eos # (Auto) 0.2 Baso # (Auto) 0.1 Nucleated RBC % (auto) 0 Nucleated RBCs # 0.0 ESR Sodium 136 Potassium 4.8 Chloride 101 Carbon Dioxide 28 Anion Gap 11.8 BUN 19 Creatinine 1.0 GFR Calculation 76.2 L Glucose 174 H POC Glucose Estimat Average Glucose 312 Hemoglobin A1c 12.5 H Calculated Osmolality 288 Lactic Acid Calcium 8.9 Total Bilirubin AST ALT Alkaline Phosphatase C-Reactive Protein Total Protein Albumin Globulin 09/26/20 09/26/20 09/26/20 06:23 16:51 21:19 WBC RBC Hgb Hct MCV MCH MCHC RDW Plt Count MPV Neut % (Auto) Lymph % (Auto) [place] % (Auto) Eos % (Auto) Baso % (Auto) Neut # (Auto) Lymph # (Auto) [place] # (Auto) Eos # (Auto) Baso # (Auto) Nucleated RBC % (auto) Nucleated RBCs # ESR Sodium Potassium Chloride Carbon Dioxide Anion Gap BUN Creatinine GFR Calculation Glucose POC Glucose 207 H 187 H 323 H Estimat Average Glucose Hemoglobin A1c Calculated Osmolality Lactic Acid Calcium Total Bilirubin AST ALT Alkaline Phosphatase C-Reactive Protein Total Protein Albumin Globulin 09/27/20 09/27/20 09/27/20 04:48 04:48 06:09 WBC 10.6 H RBC 4.72 Hgb 13.8 Hct 42.3 MCV 89.6 MCH 29.2 MCHC 32.6 RDW 12.6 Plt Count 282 MPV 11.6 H Neut % (Auto) 70.9 Lymph % (Auto) 13.8 [place] % (Auto) 12.7 Eos % (Auto) 1.4 Baso % (Auto) 0.7 Neut # (Auto) 7.53 Lymph # (Auto) 1.5 [place] # (Auto) 1.4 H Eos # (Auto) 0.2 Baso # (Auto) 0.1 Nucleated RBC % (auto) 0 Nucleated RBCs # 0.0 ESR Sodium 133 L Potassium 4.7 Chloride 101 Carbon Dioxide 25 Anion Gap 11.7 BUN 21 Creatinine 1.1 GFR Calculation 68.3 L Glucose 271 H POC Glucose 282 H Estimat Average Glucose Hemoglobin A1c Calculated Osmolality 289 Lactic Acid Calcium 8.3 L Total Bilirubin AST ALT Alkaline Phosphatase C-Reactive Protein Total Protein Albumin Globulin Micro: Microbiology 09/25/20 17:10 Blood Culture - Preliminary Blood NEGATIVE TO DATE 09/25/20 17:10 Blood Culture - Preliminary Blood NEGATIVE TO DATE Cardiac Studies: No Data to Display
[2020-09-27] MEDS: lidocaine 1% INJ 20 mL 10 ML INJECTION (11:27)
[2020-09-27] MEDS: neomycin-poly-bacitracin oint 28 gm 1 APPLIC TOPICAL (11:29)
--- NOTE | 2020-09-27 11:56 | SUR.PHASEI ---
PT TO PACU WITH ORAL AIRWAY IN PLACE MANUAL ASSIST TO KEEP AIRWAY OPEN FOR THE FIRST 10 MINUTES EVEN WITH AIRWAY, PT HAS GOOD RESP EFFORT STILL DOES NOT AWAKE TO TOUCH OR VOICE, ORAL AIRWAY IN PLACE, SATS 98% ON 8L MASK WILL TRY PT ON RA.
--- NOTE | 2020-09-27 12:05 | SUR.PHASEI ---
1159 PT AWAKES ORAL AIRWAY OUT PT ON RA GOOD RESP EFFORT PT TALKATIVE AWARE OF DAY AND TIME ETC. DRESSING D/I VSS
[2020-09-27 12:32] LABS: Glucose Point of Care 204 mg/dL (70-110)
[2020-09-27] MEDS: HYDROcodone-acetaminophen 5-325 mg Tablet 1 TAB PO (15:32)
--- NOTE | 2020-09-27 15:48 | ANE.PACU2 ---
Inpatient post-anesthesia follow up: Airway intact: Yes Vital signs: Temperature 97.6 F Pulse Rate [Monito r] 107 Pulse Rate 70 Respiratory Rate 17 Blood Pressure [Le ft Arm] 143/76 Blood Pressure 136/76 Pulse Oximetry 94 Oxygen Delivery Me thod Room Air Oxygen Flow Rate 8 Fraction of Inspir ed Oxygen Hydration adequate: Yes Nausea and vomiting: No Pain level: 1 Mental status: Baseline
[2020-09-27 16:40] LABS: Glucose Point of Care 225 mg/dL (70-110)
--- NOTE | 2020-09-27 16:46 | P.OP_ITS ---
Operative Report Date of procedure: September 27, 2020 Pre-op Diagnosis: Dry gangrene left fourth toe Post-op diagnosis: same Procedure Done: Amputation of the left fourth toe Implants: Left Specimens removed/disposition: Left fourth toe Surgeon: Ke Flores Anesthesia: MAC Condition: stable Disposition: PACU Procedure: The patient was taken to the operating room and placed under MAC after the left foot was prepped and draped in a sterile manner. Patient is on therapeutic IV antibiotics. 1% lidocaine with 0.5% Marcaine was infiltrated at the metatarsal head for a digital block. Using 15 blade a fishmouth incision was made with a longer dorsal flap since the dry gangrene involved the entire plantar aspect of the left fourth toe. Subcutaneous tissue and tendinous at tachments were divided at the metatarsophalangeal joint after raising skin flaps using 15 blade. Wound was irrigated with saline, hemostasis ensured and the subcutaneous tissues including tendons were approximated using interrupted 3-0 Vicryl suture. The skin was loosely approximated using interrupted 3-0 Prolene suture. Antibiotic cream, Telfa, gauze and Kerlix was used to cover the left foot. The patient was transferred to recovery room in stable condition.
[2020-09-27 17:02] LABS: Vancomycin Trough 20.6 ug/mL (10-15)
--- NOTE | 2020-09-27 17:04 | PM.PN ---
Subjective Subjective: Interval history: Doing well postoperatively. Denies shortness of breath, chest pain. Redness along the lower leg below the knee has been improving. Discussed with him results of arterial duplex study. Discussed suspicion of microvascular disease, discussed optimization of risk factors including diabetes control, blood pressure control, diet. He will need to quit smoking. Vitals/I&O/Wt Last Vital Signs Temp 97.6 F 09/27/20 12:07 Pulse 70 09/27/20 12:07 Resp 17 09/27/20 12:07 BP 136/76 09/27/20 12:07 Pulse Ox 94 09/27/20 12:07 09/27/20 09/27/20 09/27/20 06:59 14:59 22:59 Intake Total 1480 / 3690 350 / 350 Output Total 1200 / 1900 1055 / 1055 Balance 280 / 1790 -705 / -705 Physical Exam Const: COMMON NORMALS: no acute distress and patient oriented x3 HENMT: COMMON NORMALS: oropharynx normal Neck/C-Spine: COMMON NORMALS: no JVD Resp: COMMON NORMALS: normal respiratory effort and clear to auscultation bilaterally AUSCULTATION: clear to auscultation bilaterally Cardio: COMMON NORMALS: no JVD, regular rhythm, S1 normal heart sound present, S2 normal heart sound present and No murmurs present (Cardio) RHYTHM: regular rhythm HEART SOUNDS: S1 normal heart sound present and S2 normal heart sound present GI: COMMON NORMALS: Normal to inspection, nondistended, normoactive bowel sounds present, Soft to palpation and non-tender PALPATION: Yes Soft to palpation Extremity: COMMON NORMALS: no joint enlargement and no pedal edema OTHER: L foot wrapped in fresh post-op dressing. Neuro: COMMON NORMALS: patient oriented x3 and moves all extremities Skin: RASHES: rashes noted (Cellulitis of lower leg appearing dull red. Improving cut edema. ) Data : 09/27/20 04:48 09/27/20 04:48 Micro: Microbiology 09/25/20 17:10 Blood Culture - Preliminary Blood NEGATIVE TO DATE 09/25/20 17:10 Blood Culture - Preliminary Blood NEGATIVE TO DATE A&P Assessment and plan (1) Dry gangrene: S/p amputation L 4th toe due to gangrene, bone exposure, surrounding cellulitis. Continue postoperative care. Continue IV antibiotics for remaining cellulitis and cellulitis of lower leg between knee and ankle. Microvascular disease suspected based on arterial duplex. No major arterial occlusion. Highly encouraged him to continue follow-up to optimize risk factors for progression of microvascular disease. A1c is 12.5. This is worse from last 10.1. Discussed concern regarding possible poor wound healing. Continue to optimize diabetes. Previously also discussed avoiding any barefoot walking. He verbalized understanding. Status: Acute (2) Cellulitis: Gradually improving large area cellulitis of lower extremity between knee and ankle. Continue IV antibiotic at this time. Given cellulitis left proximal on the foot, as well as shearer below the knee discussed need for continued antibiotic therapy post amputation. Status: Acute (3) Poorly controlled diabetes mellitus: A1c 12.5. Discussed with him we will need to seriously continue optimization of risk factors due to risk of poor wound healing, with suspicion of microvascular disease on arterial duplex. Appears to be tolerating insulin well. We will go back to his home dose of 26 units at this time. Monitor. Continues on sliding scale. Consistent carbohydrate diet. Status: Acute (4) Nicotine dependence, cigarettes, with unspecified nicotine-induced disorders: Encourage cessation. Nicotine replacement as needed. Status: Acute Additional A&P Information HTN HLD Depression Chronic low back pain radiating to the leg Other chronic problems Attestations Medical Necessity Statement*: Continue admission for assessment of management of diabetic wound, status post amputation of necrotic/gangrenous digit with bone exposure, with microvascular disease noted, extensive area of cellulitis of left lower extremity, continue antibiotic support, postoperative care, optimization of control of poorly controlled diabetes at risk of poor wound healing, recurrent wound infection. Coding Level of Care Code Acute Business Systems Technician for Osmar Smith Diagnoses Dry gangrene I96 Cellulitis L03.90 Poorly controlled diabetes mellitus E11.65 Nicotine dependence, cigarettes, with unspecified nicotine-induced disorders F17.219
[2020-09-27 20:46] LABS: Glucose Point of Care 261 mg/dL (70-110)
[2020-09-27] MEDS: vancomycin 1,500 MG/300 ML PIGGYBACK 200 MG IV (22:05)
[2020-09-28] MEDS: HYDROcodone-acetaminophen 5-325 mg Tablet 1 TAB PO ×3 (00:41→12:25)
[2020-09-28 02:46] LABS: Basophils # 0.1 10^3/uL (0.0-0.1); Basophils % 0.5 %; Eosinophils # 0.1 10^3/uL (0.0-0.8); Eosinophils % 1.2 %; Hematocrit 42.6 % (42.0-52.0); Hemoglobin 13.9 g/dL (11.7-16.6); Lymphocytes # 1.4 10^3/uL (0.8-4.8); Lymphocytes % 12.1 %; Mean Corpuscular HGB Conc 32.6 g/dL (30.0-36.0); Mean Corpuscular Hemoglobin 29.6 pg (28.0-34.0); Mean Corpuscular Volume 90.8 fL (80-94); Mean Platelet Volume 11.4 fL (7.4-10.4); Monocytes # 1.4 10^3/uL (0.2-0.9); Monocytes % 12.2 %; Neutrophils # 8.29 10^3/uL (1.8-7.7); Neutrophils % 73.6 %; Nucleated Red Blood Cells % 0 %; Platelet Count 281 10^3/cmm (130-400); Red Blood Count 4.69 10^6/uL (4.1-5.3); Red Cell Distribution Width 12.8 % (12.1-15.1); White Blood Count 11.3 10^3/uL (4.0-10.0)
[2020-09-28 02:49] LABS: Anion Gap 12.5 (5-19); Blood Urea Nitrogen 17 mg/dL (8-23); Carbon Dioxide 25 mmol/L (22-29); Chloride 99 mmol/L (98-107); Glomerular Filtration Rate 61.8 mL/min (90-130); Glucose 265 mg/dL (65-115); Osmolality Calculated 285 mOsm/kg (285-295); Potassium 4.5 mmol/L (3.5-5.1); Sodium 132 mmol/L (136-145)
[2020-09-28 03:24] VITALS: BP 155/73; PULSE 75; RESP 18; TEMP 36.7; O2SAT 94
[2020-09-28] MEDS: piperacillin-tazobactam 3.375 GM in sodium chloride 0.9% (plus) 50 ML IV ×2 (04:52→12:25)
[2020-09-28 04:53] VITALS: RESP 20
[2020-09-28] MEDS: morphine 4 mg/mL SDV 1 mL 2 MG IVP (04:53)
[2020-09-28 06:20] LABS: Glucose Point of Care 271 mg/dL (70-110)
[2020-09-28 07:28] VITALS: BP 163/95; PULSE 79; RESP 16; TEMP 36.4; O2SAT 96
[2020-09-28] MEDS: atorvastatin 40 mg Tablet PO (08:40)
[2020-09-28] MEDS: gabapentin 400 mg Capsule PO (08:40)
[2020-09-28] MEDS: fenofibrate 145 mg Tablet PO (08:40)
[2020-09-28] MEDS: sennosides-docusate Tablet 1 TAB PO (08:40)
[2020-09-28] MEDS: duloxetine 60 mg Capsule PO (08:40)
[2020-09-28] MEDS: metoprolol tartrate 25 mg Tablet PO (08:41)
--- NOTE | 2020-09-28 10:48 | PC.CHAP ---
Pastoral Care Encounter/Spiritual Assessment Type of Contact [] Declined finisher brush visit [] Patient/Family/Request visit [] Outpatient visit [] Follow-up visit [] Physician referral [] Code/Alert [x] Routine visit [] Staff referral [] Actively dying [] Patient sleeping [] Family support [] [] Out of room [] Palliative care [] [x] Receiving care in room [] Pre-surgical visit [] Trauma [] Long length of stay [] ICU visit [] Other: Relational/Emotional Strength [x] Patient feels connected with others/family/visitors/staff [] Distress [] Loneliness/isolation [] Abandonment Spirituality of Patient [x] Person of [place] [] Attends Anabaptist of their [place] [x] Believes in Prayer [] Reads Bible or Hoahaoism materials [] There are Spiritual issues to be addressed Inventory Clerk Interventions [x] Prayer [x] Active listening [x] Non-anxious presence [x] Spiritual/emotional support [] Crisis/trauma care [x] Spiritual counseling [] Bereavement support [] Provided bereavement packet [] Provided Bible/devotional materials [] Provided toy/stuffed animal, coloring book to patient or family member [] Provided Communion [] Anointing/[place] [] Salvation [x] Completed spiritual assessment [] Other: Impact on Illness or Injury [] Angry [] Fearful [x] Anxious [] Often cries [] Exhaustion [x] Unable to work [] Unable to attend cheondoism [] Unable to walk/stand [] Unable to read [] Unable to drive [] Unable to eat/drink [] Unable to sleep [] Unable to be with family [] Patient intubated [] Other: Summary has blood coltsfeeling good wants to home soon has a good attitude Time spent with patient 10 mins
--- NOTE | 2020-09-28 11:48 | PC.RESP ---
SMOKING CESSATION INFORMATION SENT TO PATIENT.
[2020-09-28 12:00] VITALS: BP 135/74; PULSE 66; RESP 18; TEMP 36.4; O2SAT 95
--- NOTE | 2020-09-28 12:11 | PC.NURSE ---
pt reported pain of 6/10. verbal order recieved from Dr. Mcdonnell to give Weiner early.
[2020-09-28 12:15] LABS: Glucose Point of Care 306 mg/dL (70-110)
--- NOTE | 2020-09-28 14:05 | P.DS_ITS ---
Discharge Providers Date of Admission: 09/25/20 19:43 Date of Discharge: September 28, 2020 Attending Provider at Admission: Jessica Goins MD Attending Provider at Discharge: Jonathan Mcdonnell Primary Care Provider: Juany Guajardo DO Diagnoses at Discharge Discharge Diagnosis (1) Dry gangrene: Status: Acute (2) Cellulitis: Status: Acute (3) Poorly controlled diabetes mellitus: Status: Acute (4) Nicotine dependence, cigarettes, with unspecified nicotine-induced disorders: Status: Acute Reason for Visit Reason for Visit: L. Toe Complications Hospital Course Hospital Course Very pleasant 59-year-old gentleman with poorly controlled diabetes on Victoza, Tresiba, Metformin, HLD, HTN, current smoker, with history of prior to amp utations presents due to nonhealing wound, now progressed to gangrene with bone exposure of the fourth left toe after injury and infection, with cellulitis that affected both dorsal foot, as well as more proximally at his lower left leg between the knee and the ankle. Blood cultures were collected. He was treated with Zosyn, vancomycin. Seen by surgery and underwent amputation of fourth left digit. Doing well postoperatively. Cellulitis is significantly improving. No signs of sepsis and subjectively he is feeling well apart from some pain in his left foot. He was assessed by arterial duplex with finding of abnormal Doppler waveform in the posterior tibial artery suggestive of distal small vessel disease. On assessment of A1c it is 12.5. We had extensive discussions with him regarding control of risk factors of progression of microvascular disease, risk of poor wound healing, recurrence of infection, and further wounds and lower extremity infections. Discussed with him to at all times protect his feet, discussed urgency and importance of smoking cessation to try and halt progression of vascular disease in addition to other complications. Discussed also optimization of other risk factors, primarily diabetes, with long-acting insulin dose increased to 28 units at discharge, with addition of short acting sliding scale with meals. He is also agreeable to follow-up with endocrinology in office to help with optimization due to the complications of the uncontrolled diabetes. Please assist him with optimization of other risk factors as discussed with him, including HTN, HLD, diet. He is agreeable to nicotine replacement therapy with nicotine patches, gum, and these are provided for him at discharge. Please continue to work with him to stop smoking. Physical Exam Const: COMMON NORMALS: no acute distress and patient oriented x3 HENMT: COMMON NORMALS: oropharynx normal Neck/C-Spine: COMMON NORMALS: no JVD Resp: COMMON NORMALS: normal respiratory effort and clear to auscultation bilaterally AUSCULTATION: clear to auscultation bilaterally Cardio: COMMON NORMALS: no JVD, regular rhythm, S1 normal heart sound present, S2 normal heart sound present and No murmurs present (Cardio) RHYTHM: regular rhythm HEART SOUNDS: S1 normal heart sound present and S2 normal heart sound present GI: COMMON NORMALS: Normal to inspection, nondistended, normoactive bowel sounds present, Soft to palpation and non-tender PALPATION: Yes Soft to palpation Extremity: COMMON NORMALS: no joint enlargement and no pedal edema OTHER: L foot wrapped in fresh post-op dressing. Neuro: COMMON NORMALS: patient oriented x3 and moves all extremities Skin: COMMON NORMALS: no rashes or lesions noted GENERAL SKIN EXAM: no rashes or lesions noted RASHES: rashes noted (Cellulitis of lower leg continuing to improve) Discharge Data Data Completed and Pending: Completed Studies During Hospitalization Category Date Time Status CT foot LT w con [id number] Stat Cat Scan 09/25/20 20:[address] lower leg LT w con [id number] Routine Cat Scan 09/25/20 21:40 Completed XR foot LT min 3V * [id number] Urgent Exams 09/25/20 15:52 [place] [id number] Rout ine Ultrasound 09/26/20 12:53 Completed Pending at discharge Category Date Time Status Basic Metabolic P rudolph AM LABS Lab 09/29/20 04:00 Ordered Blood Culture Sta t Lab 09/25/20 17:10 Results Complete Blood Co unt w/Auto AM LABS Lab 09/29/20 04:00 Ordered Vancomycin Trough Timed Lab 09/29/20 09:00 Ordered Pathology: Surgic al [PTH] Routine Pth 09/27/20 11:28 Received Labs from last 24 hours 09/28/20 09/28/20 09/28/20 12:03 06:14 02:16 WBC RBC Hgb Hct MCV MCH MCHC RDW Plt Count MPV Neut % (Auto) Lymph % (Auto) [place] % (Auto) Eos % (Auto) Baso % (Auto) Neut # (Auto) Lymph # (Auto) [place] # (Auto) Eos # (Auto) Baso # (Auto) Nucleated RBC % (a uto) Nucleated RBCs # Sodium 132 L Potassium 4.5 Chloride 99 Carbon Dioxide 25 Anion Gap 12.5 BUN 17 Creatinine 1.2 GFR Calculation 61.8 L Glucose 265 H POC Glucose 306 H 271 H Calculated Osmolal ity 285 Calcium 9.0 Vancomycin Trough 09/28/20 09/27/20 09/27/20 02:16 20:29 16:09 WBC 11.3 H RBC 4.69 Hgb 13.9 Hct 42.6 MCV 90.8 MCH 29.6 MCHC 32.6 RDW 12.8 Plt Count 281 MPV 11.4 H Neut % (Auto) 73.6 Lymph % (Auto) 12.1 [place] % (Auto) 12.2 Eos % (Auto) 1.2 Baso % (Auto) 0.5 Neut # (Auto) 8.29 H Lymph # (Auto) 1.4 [place] # (Auto) 1.4 H Eos # (Auto) 0.1 Baso # (Auto) 0.1 Nucleated RBC % (a uto) 0 Nucleated RBCs # 0.0 Sodium Potassium Chloride Carbon Dioxide Anion Gap BUN Creatinine GFR Calculation Glucose POC Glucose 261 H Calculated Osmolal ity Calcium Vancomycin Trough 20.6 H 09/27/20 15:23 WBC RBC Hgb Hct MCV MCH MCHC RDW Plt Count MPV Neut % (Auto) Lymph % (Auto) [place] % (Auto) Eos % (Auto) Baso % (Auto) Neut # (Auto) Lymph # (Auto) [place] # (Auto) Eos # (Auto) Baso # (Auto) Nucleated RBC % (a uto) Nucleated RBCs # Sodium Potassium Chloride Carbon Dioxide Anion Gap BUN Creatinine GFR Calculation Glucose POC Glucose 225 H Calculated Osmolal ity Calcium Vancomycin Trough Vitals: Last Vital Signs Temp 97.6 F 09/28/20 12:00 Pulse 66 09/28/20 12:00 Resp 18 09/28/20 12:00 BP 135/74 09/28/20 12:00 Pulse Ox 95 09/28/20 12:00 Discharge Plan Discharge Patient Disposition: Home Health Service Condition: Stable Prescriptions: New hydrocodone-acetaminophen 5-325 mg Tablet 1 tab PO Q6H PRN (Reason: Moderate Pain) Qty: 6 RF: 0 nicotine 21 mg/24 hr Patch 24 Hour 1 patch transdermal DAILY PRN (Reason: Withdrawal) Qty: 30 RF: 0 cefdinir 300 mg capsule 300 mg PO BID 10 Days Qty: 20 RF: 0 nicotine (polacrilex) 2 mg Gum 2 mg buccal Q2H PRN (Reason: Withdrawal) Qty: 120 RF: 3 doxycycline hyclate 100 mg tablet 100 mg PO BID 10 Days Qty: 20 RF: 0 insulin lispro [Humalog KwikPen Insulin] 100 unit/mL insulin pen See Rx Instructions .ROUTE .COMPLEX Qty: 15 RF: 3 Continued Zyrtec 10 mg capsule 10 mg PO DAILY RF: 0 mupirocin 2 % ointment 1 applic topical BID 3 Days Qty: 15 RF: 0 lisinopril 5 mg tablet 5 mg PO DAILY RF: 0 metoprolol tartrate 25 mg tablet 25 mg PO BID Qty: 180 RF: 3 Victoza 3-John 0.6 mg/0.1 mL (18 mg/3 mL) pen injector 1.8 mg SUBCUT DAILY Qty: 9 RF: 5 atorvastatin 40 mg tablet 40 mg PO DAILY Qty: 30 RF: 5 metformin 1,000 mg tablet 1,000 mg PO BID Qty: 60 RF: 2 methocarbamol 500 mg tablet 500 mg PO BID PRN (Reason: pain) Qty: 60 RF: 3 duloxetine 60 mg capsule,delayed release(DR/EC) 60 mg PO BID Qty: 180 RF: 0 multivitamin Tablet 1 tab PO DAILY RF: 0 beta carotene 25,000 unit Capsule 25,000 unit PO DAILY RF: 0 cholecalciferol (vitamin D3) [Vitamin D3] 25 mcg (1,000 unit) Capsule 25 mcg PO DAILY RF: 0 omega 5-wbc-vtf-fish oil [Fish Oil] 1,000 mg (120 mg-180 mg) Capsule 1 cap PO BID RF: 0 acetaminophen [Tylenol Extra Strength] 500 mg Tablet 500 mg PO TID PRN (Reason: Pain) Qty: 0 RF: 0 Depo-Testosterone 100 mg/mL oil 200 mg IM Q14D RF: 0 gabapentin 400 mg capsule 400 mg PO BID RF: 0 Tricor 145 mg tablet 145 mg PO DAILY RF: 0 Changed Tresiba FlexTouch U-100 100 unit/mL (3 mL) insulin pen 28 unit SUBCUT DAILY Qty: 3 RF: 2 Discharge Orders: Discharge Order (Routine); Ordered 09/28/20 Ordered By: Jonathan Mcdonnell Referrals: Ke Flores MD [Physician] - 10/13/20 Juany Guajardo DO [Primary Care Provider] - 10/10/20 2:30 pm Liam Lemus MD [Physician] - 1 week Discharge Diet: Cardiac and Diabetic Discharge Activity: Limit activity as instructed Patient Instructions: Opioid Safety, Diabetes Mellitus Type 2 in Adults (DC), Diabetic Foot Ulcers (GEN), Diabetic Foot Care (GEN), How to Check Your Blood Sugar (GEN), Diabetes and Diet, Cigarette Smoking and Your Health (GEN), How to Stop Smoking (GEN), Insulin Lispro (Injection), Cefdinir (By mouth), Doxycycline (By mouth), Hydrocodone/Acetaminophen (By mouth) Activity Restrictions/Additional Instructions: Please make sure to protect your feet at all times. Do not walk barefoot. Please continue to optimize diabetes control. Your insulin dose with long- acting insulin is increased to 28 units daily. Also short acting sliding scale insulin is added to be taken before meals based on blood glucose. Please check your blood glucose 4 times daily, maintain log to bring to your appointment as well as to follow-up with the water manager. Please stop smoking as continued smoking as well as diabetes make wound healing very difficult, and combined the effect is magnified. Smoking also will lead to other complications including cardiovascular disease heart attack, stroke, lung disease, and various cancers. Diet Advance to normal diet as tolerated, increase fluid intake as much as possible. Activity Avoid strenuous activity for 2 weeks but continue with daily activities including walking as tolerated. Do not lift more than 10 pounds for 2 weeks Return to work/school You can return to work/ school whenever you feel ready as long as you don?t have to lift more than 10 pounds at work. If you have paperwork that needs to be completed for time off from work, please contact my office Driving You can resume driving once you stop using narcotic pain medications, and transition to non-opioid pain medications like Tylenol, Motrin, Aleve, etc. Medications Pain Take opioid pain medications as prescribed and transition to non-opioid pain medications like Tylenol, Motrin, Aleve etc. over the next few days. The goal of the pain medications is to make the pain bearable and not to be pain free since you recently had surgery. Resume all home medications after surgery as per the medication reconciliation list Constipation The combination of surgery, anesthesia and pain medications can result in constipation. Take stool softeners as prescribed. If you do not have a bowel movement in 3 days, please take an [id number] laxative like MiraLAX to address the constipation. Shower It is ok to shower but avoid getting the wound wet for 48 hours after surgery. Do not soak in bathtub, swimming pool or hot tub for 2 weeks. Wound care Dab the wound dry after shower, cover with antibiotic cream and sterile dressings once daily Problems with the wound: you can develop some redness around the incision from bruising after surgery. If there is increasing pain, redness, tenderness around the incision with or without drainage, please contact my office to rule out an infection. Sometimes the skin at the incisions can separate, resulting in reopening of the wound. Cover the wound with antibiotic cream and sterile dressings and contact my office. Contact physician Call the office at [phone] during office hours or go the Emergency Room ?Fever to 100.4 or greater ?Shaking chills ?Pain that increases over time ?Redness, warmth, or pus draining from incision sites ?Persistent nausea or inability to take in liquids Discharge Attestations Time Spent in Discharge Care*: greater than 30 min Quality Metrics Clinical Quality Measures During this hospital stay, did patient experience: None Coding Level of Care Code Acute [facility] note Diagnoses Dry gangrene I96 Cellulitis L03.90 Poorly controlled diabetes mellitus E11.65 Nicotine dependence, cigarettes, with unspecified nicotine-induced disorders F17.219
[2020-09-28 14:38] LABS: Glucose Point of Care 316 mg/dL (70-110)
--- NOTE | 2020-09-28 16:21 | PC.NURSE ---
patient verbalized understanding of discharge instructions, home medications dressing changes and follow up appointments.
[2020-09-28 17:31] VITALS: BP 135/74; PULSE 66; RESP 18; TEMP 36.4; O2SAT 95
== END 2020-09-28 16:00 | disposition home or self-care (01) | DRG 256 ==
LOC: ER 20:20 → MEDSURG 21:03
PROVIDERS: Physician Assistant; Surgery; Admitting Provider Internal Medicine; Emergency Provider Family Medicine; PCP Family Medicine; Visit Provider Internal Medicine
PROC: 0Y6W0Z0 Detachment at Left 4th Toe, Complete, Open Approach (ICD-10-PCS; principal; 2020-09-27 14:35)
DX: E11.52 Type 2 diabetes mellitus with diabetic peripheral angiopathy with gangrene (principal); I96 Gangrene, not elsewhere classified; L03.116 Cellulitis of left lower limb; E11.65 Type 2 diabetes mellitus with hyperglycemia; Z89.422 Acquired absence of other left toe(s); Z89.421 Acquired absence of other right toe(s); E78.5 Hyperlipidemia, unspecified; I10 Essential (primary) hypertension; E29.1 Testicular hypofunction; G89.29 Other chronic pain; M54.5 Low back pain; F32.9 Major depressive disorder, single episode, unspecified; F17.210 Nicotine dependence, cigarettes, uncomplicated; Z79.4 Long term (current) use of insulin
CPT/HCPCS: 36415; 36416; 73630; 73701; 80048; 80053; 80202; 82962; 83036; 83605; 85025; 85651; 86140; 87040; 88305; 93926; 96365; 96372; 99285; J1815; J2250; J2270; J2543; J2704; J3010; J3370; J3490; J7030; Q9967

== ENCOUNTER 2020-10-05 06:00 | Outpatient (RCR) | payer SELFPAY | END 2020-11-04 23:59 | disposition home or self-care (01) | LOC: SPT 06:00 | PROVIDERS: PCP Family Medicine; Referring Provider Family Medicine; Visit Provider Family Medicine | DX: R26.81 Unsteadiness on feet (principal) | CPT/HCPCS: 97110 ==

== ENCOUNTER → 2020-10-18 08:40 | Outpatient (BNVA) | payer MEDICAID, SELFPAY | PROVIDERS: PCP Family Medicine; Visit Provider Specialist | DX: Z98.890 Other specified postprocedural states (principal); Z96.642 Presence of left artificial hip joint; M16.12 Unilateral primary osteoarthritis, left hip | CPT/HCPCS: 73502 ==

== ENCOUNTER 2020-11-14 12:09 | Inpatient (IN) | payer MEDICAID, SELFPAY ==
[2020-11-14 13:09] VITALS: BP 129/72; PULSE 84; RESP 18; TEMP 37.2; O2SAT 91
[2020-11-14 13:21] LABS: Glucose Point of Care 440 mg/dL (70-110)
[2020-11-14 20:30] VITALS: BP 120/67; PULSE 83; RESP 18; O2SAT 98
--- NOTE | 2020-11-14 21:00 | W.ED.EXTPRO ---
HPI - Extremity Problem General: Chief complaint: Extremity Problem,Nontraumatic Stated complaint: L foot pain Time Seen by Provider: 11/14/20 20:31 History of Present Illness: HPI Narrative: Patient is a 59-year-old male comes to the ED with left foot pain. Patient has a past medical history of type 2 diabetes with diabetic neuropathy, dyslipidemia and hypertension. He had his second, third and fourth digit on left foot amputated. Patient had one of the toe was amputated approximately 1 month ago. He was seen by his PCP Dr. Vasquez today and they thought his left foot appeared infected and they wanted him to come to the ED for further evaluation and IV antibiotics. Patient denies any other symptoms and says his left foot just hurts when he is walking on it but if he is resting he has no pain in his left foot. Describes having some purulent drainage around recent amputation site. Patient says he was told to have follow-up with wound care after amputation but states that he was unable to go because he was busy taking care of his and her health issues. Associated symptoms: Deny chest pain, fever(s) or rash Review of Systems Const: Denies: fever(s), chills or fatigue Eyes: Denies: change in vision or eye discomfort ENMT: Denies: throat pain, odynophagia, nasal discharge or nasal congestion Card: Denies: chest pain, palpitations, edema, swelling of feet/ankles, dyspnea on exertion or orthopnea Resp: Denies: dyspnea, productive cough or non-productive cough GI: Denies: abdominal pain, nausea, vomiting, diarrhea, constipation or hematochezia : Denies: flank pain, difficulty urinating, dysuria or hematuria Musc: Reports: extremity pain (left foot-digits 2-4); Denies: neck pain, back pain or extremity swelling Skin/Breast: Reports: new lesions (Ulcer on bottom of left foot and erythema drainage at amputation site); Denies: rash Neuro: Denies: headache(s), numbness in extremities or weakness in extremities PFS ED PFSH: Medical History Controlled type 2 diabetes mellitus, with long-term current use of insulin Dry gangrene Dyslipidemia Essential hypertension HTN (hypertension), benign Hypotestosteronemia in male Low back pain radiating down leg Major depressive disorder Surgical History History of amputation of toe Right second and left second and third History of eye surgery History of total left hip arthroplasty Status post vasectomy Family History Other CAD (coronary artery disease) Cancer Diabetes Hypertension Social History Smoking and tobacco status: current every day smoker cigarettes Packs smoked per day: 1 Alcohol intake: former Physical Exam Const: COMMON NORMALS: no acute distress, patient oriented x3 and alert GENERAL APPEARANCE: cooperative and comfortable HENMT: COMMON NORMALS: normocephalic HEAD & SCALP: normocephalic MOUTH: Normal oral and palatal mucosa present THROAT: posterior oropharynx normal and uvula midline Neck/C-Spine: COMMON NORMALS: supple GENERAL: Yes normal visual inspection Resp: COMMON NORMALS: normal respiratory effort, No retractions, No use of accessory muscles and clear to auscultation bilaterally AUSCULTATION: clear to auscultation bilaterally Cardio: COMMON NORMALS: regular rate, regular rhythm, S1 normal heart sound present, S2 normal heart sound present, No gallops present (Cardio), No clicks present (Cardio), No murmurs present (Cardio) and Peripheral pulses 2+ throughout RATE: regular rate RHYTHM: regular rhythm HEART SOUNDS: S1 normal heart sound present and S2 normal heart sound present PERIPHERAL PULSES: Peripheral pulses 2+ throughout GI: COMMON NORMALS: Normal to inspection, nondistended, normoactive bowel sounds present, Soft to palpation, non-tender and no masses PALPATION: Yes Soft to palpation : COMMON NORMALS: Yes no CVA tenderness BLADDER/KIDNEY EXAM: Yes no CVA tenderness Back/Pelvis: COMMON NORMALS: no CVA tenderness Extremity: NARRATIVE EXTREMITY EXAM: Left foot?plantar side of foot patient has superficial diabetic ulcer with limited breakdown of skin. GENERAL: Yes normal exam except as noted LEFT LOWER EXTREMITY: Yes foot & digits (Second third and fourth digit on left foot been amputated.) Left foot and digits: Yes inspection (Erythema and warmth around base of fourth digit) and Yes other (Purulent drainage around fourth digit with foul odor) Neuro: COMMON NORMALS: patient oriented x3 and moves all extremities SENSORIUM/ORIENTATION: Yes alert Skin: GENERAL SKIN EXAM: dry skin Course Consultations: Consultation #1: I contacted Dr. Flores about patient case and told about the labs and x-ray findings. He thought patient needs to be admitted and to the hospitalist service to be placed on IV antibiotics. Time: 00:06 Consultation #2: I talked with Dr. Champion the hospitalist and told her about patient case and that Dr. Flores would like to have patient admitted and put on IV antibiotics. Dr. Sterling says she would like to call Dr. Flores and discuss plan of care because she does not think he needs to be admitted. After Dr. Champion talk to Dr. Flores the plan is for patient to get a CT of left foot done and if there is an abscess that requires to be addressed surgically patient will be admitted. If CT does not show an abscess patient will be discharged home with outpatient follow-up. Time: 00:42 Vital Signs: Vital signs: Vital Signs Temperature 99.0 F 11/14/20 13:09 Pulse Rate 82 11/15/20 00:39 Respiratory Rate 16 11/15/20 00:39 Blood Pressure 124/70 11/15/20 00:39 Pulse Oximetry 98 11/15/20 00:39 MDM - Extremity (Nontraumatic) MDM Narrative: Medical decision making narrative: Patient is a 59-year-old male that comes to the ED with left foot pain and infection. Past medical history of type 2 diabetes with diabetic neuropathy. Patient has had his left second, third and fourth digit amputated. His fourth digit was recently amputated and he has a history of osteomyelitis. His amputation site over the fourth digit has some erythema and purulent foul odor discharge. Vital stable. White blood cell count 14.3, initial [id number] glucose test was 440. CRP 36.2. X-ray of left foot showed signs of osteomyelitis over the fourth metatarsal head. CT of left foot showed fourth metatarsal head osteomyelitis with small abscess noted as well. While here in the ED patient got IV fluids, insulin, Vanco and Zosyn. Patient's glucose went down to 257 after insulin and fluids. I talked with Dr. Flores about patient case and he wanted patient admitted. I spoke with Dr. Champion the hospitalist about patient case and she accepted admission of patient. Dr. Yost placed the admitting orders. Lab Data: Attestation: I reviewed the patient's lab results. Labs: Lab Results 11/14/20 11/14/20 11/14/20 Range/Units 13:14 20:35 20:35 WBC 14.3 H (4.0-10.0) 10^3/ uL RBC 5.30 (4.1-5.3) 10^6/u L Hgb 15.5 (11.7-16.6) g/dL Hct 47.6 (42.0-52.0) % MCV 89.8 (80-94) fL MCH 29.2 (28.0-34.0) pg MCHC 32.6 (30.0-36.0) g/dL RDW 13.3 (12.1-15.1) % Plt Count 269 (130-400) 10^3/c mm MPV 12.2 H (7.4-10.4) fL Neut % (Auto) 72.9 % Lymph % (Auto) 14.2 % [place] % (Auto) 11.0 % Eos % (Auto) 0.8 % Baso % (Auto) 0.6 % Neut # (Auto) 10.42 H (1.8-7.7) 10^3/u L Lymph # (Auto) 2.0 (0.8-4.8) 10^3/u L [place] # (Auto) 1.6 H (0.2-0.9) 10^3/u L Eos # (Auto) 0.1 (0.0-0.8) 10^3/u L Baso # (Auto) 0.1 (0.0-0.1) 10^3/u L Nucleated RBC % (a uto) 0 % Nucleated RBCs # 0.0 /100WBC Sodium 135 L (136-145) mmol/L Potassium 4.5 (3.5-5.1) mmol/L Chloride 96 L (98-107) mmol/L Carbon Dioxide 29 (22-29) mmol/L Anion Gap 14.5 (5-19) BUN 19 (8-23) mg/dL Creatinine 0.9 (0.7-1.2) mg/dL GFR Calculation 86.1 L (90-130) mL/min Glucose 322 H (65-115) mg/dL POC Glucose 440 H (70-110) mg/dL Calculated Osmolal ity 295 (285-295) mOsm/k g Calcium 9.1 (8.5-10.5) mg/dL Total Bilirubin 0.3 (0.15-1.2) mg/dL AST 12 (0-40) U/L ALT 16 (0-41) U/L Alkaline Phosphata se 81 (40-130) IU/L C-Reactive Protein 36.2 H (0.0-4.9) mg/L Total Protein 7.5 (6.6-8.7) g/dL Albumin 3.9 (3.5-5.2) g/dL Globulin 3.6 (1.3-4.6) g/dL Serum Ketones (Negative) 11/14/20 11/15/20 Range/Units 20:35 00:01 WBC (4.0-10.0) 10^3/ uL RBC (4.1-5.3) 10^6/u L Hgb (11.7-16.6) g/dL Hct (42.0-52.0) % MCV (80-94) fL MCH (28.0-34.0) pg MCHC (30.0-36.0) g/dL RDW (12.1-15.1) % Plt Count (130-400) 10^3/c mm MPV (7.4-10.4) fL Neut % (Auto) % Lymph % (Auto) % [place] % (Auto) % Eos % (Auto) % Baso % (Auto) % Neut # (Auto) (1.8-7.7) 10^3/u L Lymph # (Auto) (0.8-4.8) 10^3/u L [place] # (Auto) (0.2-0.9) 10^3/u L Eos # (Auto) (0.0-0.8) 10^3/u L Baso # (Auto) (0.0-0.1) 10^3/u L Nucleated RBC % (a uto) % Nucleated RBCs # /100WBC Sodium (136-145) mmol/L Potassium (3.5-5.1) mmol/L Chloride (98-107) mmol/L Carbon Dioxide (22-29) mmol/L Anion Gap (5-19) BUN (8-23) mg/dL Creatinine (0.7-1.2) mg/dL GFR Calculation (90-130) mL/min Glucose (65-115) mg/dL POC Glucose 257 H (70-110) mg/dL Calculated Osmolal ity (285-295) mOsm/k g Calcium (8.5-10.5) mg/dL Total Bilirubin (0.15-1.2) mg/dL AST (0-40) U/L ALT (0-41) U/L Alkaline Phosphata se (40-130) IU/L C-Reactive Protein (0.0-4.9) mg/L Total Protein (6.6-8.7) g/dL Albumin (3.5-5.2) g/dL Globulin (1.3-4.6) g/dL Serum Ketones Negative (Negative) Imaging Data^: Xray Ortho: Attestation: I personally reviewed and interpreted this imaging study as follows: Radiologist's impression: [address] [address] XRay Report Signed Patient: Marquis Ballard Unit #: [id number] : 1960 Age/Sex: 59 / M ADM Date: 11/14/20 Loc: ER Room/Bed: Attending Dr: Ordering Provider/Ordering MD: Yuri Suarez Date of Service: 11/14/20 Procedure(s): XR foot LT min 3V* [id number] Accession Number(s): [id number] Report Number: [id number] PROCEDURE INFORMATION: Exam: XR Left Foot Exam date and time: 11/14/2020 9:01 PM Age: 59 years old Clinical indication: Pain; Foot; Left; Prior surgery; Surgery date: 1-6 months; Surgery type: 2-3-4 amp; Patient HX: Infection at amputation site; Additional info: Infection around 3rd 4th digit amputation TECHNIQUE: Imaging protocol: XR Left foot. Views: 3 or more views. COMPARISON: CT foot LT w con [id number] 09/25/2020 9:14 PM FINDINGS: Bones/joints: There is erosion of the 4th metatarsal head. There is deformity without erosion of the 2nd and 3rd metatarsal heads. There has been amputation of the 2nd through 4th toes. The midfoot and hindfoot are unremarkable. Soft tissues: Visible soft tissues are unremarkable. XR/XR foot LT min 3V* [id number] IMPRESSION: Suspect osteomyelitis at the 4th metatarsal head. Dictated By: Kunal Temple MD Signed By: Kunal Temple MD Signed Date/Time: 11/14/202357 DD/ [address]: Attestation: I personally reviewed and interpreted this imaging study as follows: Radiologist's impression: [facility] [employer] [address] [place] [address] CT Scan Report Signed Patient: Marquis Ballard Unit #: [id number] : 1960 Age/Sex: 59 / M ADM Date: 11/14/20 Loc: ER Room/Bed: Attending Dr: Ordering Provider/Ordering MD: Belén Champion MD Date of Service: 11/15/20 Procedure(s): CT foot LT w con [id number] Accession Number(s): [id number] Report Number: [id number] PROCEDURE INFORMATION: Exam: CT Left Lower Extremity With Contrast, Foot Exam date and time: 11/15/2020 12:37 AM Age: 59 years old Clinical indication: Foot and toes; Left; Prior surgery; Surgery date: <1 month; Surgery type: Amp 2-3-4; Patient HX: L foot pain ? osteo L 4th; Additional info: Osteomyelitis, evaluate for abscess TECHNIQUE: Imaging protocol: CT of the Left lower extremity with intravenous contrast was performed. Exam focused on the foot. Radiation optimization: All CT scans at this facility use at least one of these dose optimization techniques: automated exposure control; mA and/or kV adjustment per patient size (includes targeted exams where dose is matched to clinical indication); or iterative reconstruction. Contrast material: OMNI 300; Contrast volume: 95 ml; Contrast route: INTRAVENOUS (IV); COMPARISON: CT foot LT w con [id number] 09/25/2020 9:14 PM RADIATION DOSE METRICS: Total DLP (mGy-cm): 142.81 FINDINGS: Bones/joints: There has been amputation of the 4th toe since the prior CT. There is new multifocal ill-defined erosion of the 4th metatarsal head consistent with osteomyelitis. Remote amputation of the 2nd and 3rd toes noted. Soft tissues: There is marked soft tissue edema in the forefoot surrounding the 4th metatarsal head. There is a fluid collection surrounding the 4th metatarsal head measuring 20 x 18 x 15 mm, extending to the skin surface. CT/CT foot LT w con [id number] IMPRESSION: 1. Erosions in the 4th metatarsal head consistent with osteomyelitis. 2. Small abscess surrounding the 4th metatarsal head. 3. Interval amputation of the 4th toe. Radiation Dose CTDIVOL = (mGy): DLP = 142.81 (mGy-cm) Dictated By: Kunal Temple MD Signed By: Kunal Temple MD Signed Date/Time: 11/15/20151 DD/ 0 Discharge Plan Discharge Admit Provider: Belén Champion Coding Level of Care Code ED Packer Operator Automatic for Chg Fwd Exam Comprehensive
[2020-11-14 21:48] LABS: Alanine Aminotransferase 16 U/L (0-41); Albumin Level 3.9 g/dL (3.5-5.2); Alkaline Phosphatase 81 IU/L (40-130); Anion Gap 14.5 (5-19); Aspartate Amino Transferase 12 U/L (0-40); Blood Urea Nitrogen 19 mg/dL (8-23); C Reactive Protein 36.2 mg/L (0.0-4.9); Calcium 9.1 mg/dL (8.5-10.5); Carbon Dioxide 29 mmol/L (22-29); Chloride 96 mmol/L (98-107); Globulin 3.6 g/dL (1.3-4.6); Glomerular Filtration Rate 86.1 mL/min (90-130); Glucose 322 mg/dL (65-115); Osmolality Calculated 295 mOsm/kg (285-295); Potassium 4.5 mmol/L (3.5-5.1); Sodium 135 mmol/L (136-145); Total Bilirubin 0.3 mg/dL (0.15-1.2); Total Protein 7.5 g/dL (6.6-8.7)
[2020-11-14 21:51] LABS: Basophils # 0.1 10^3/uL (0.0-0.1); Basophils % 0.6 %; Eosinophils # 0.1 10^3/uL (0.0-0.8); Eosinophils % 0.8 %; Hematocrit 47.6 % (42.0-52.0); Hemoglobin 15.5 g/dL (11.7-16.6); Lymphocytes % 14.2 %; Mean Corpuscular HGB Conc 32.6 g/dL (30.0-36.0); Mean Corpuscular Hemoglobin 29.2 pg (28.0-34.0); Mean Corpuscular Volume 89.8 fL (80-94); Mean Platelet Volume 12.2 fL (7.4-10.4); Monocytes # 1.6 10^3/uL (0.2-0.9); Neutrophils # 10.42 10^3/uL (1.8-7.7); Neutrophils % 72.9 %; Nucleated Red Blood Cells % 0 %; Platelet Count 269 10^3/cmm (130-400); Red Cell Distribution Width 13.3 % (12.1-15.1); White Blood Count 14.3 10^3/uL (4.0-10.0)
[2020-11-14 21:59] LABS: Ketone (Acetest) Serum Negative (Negative)
[2020-11-14] MEDS: insulin regular-human 100 units/1 mL 6 UNIT IVP (22:19)
[2020-11-14] MEDS: vancomycin 1,500 MG/300 ML PIGGYBACK 200 MG IV (22:20)
[2020-11-14] MEDS: sodium chloride 0.9% 1,000 ML 999 ML IV (22:20)
[2020-11-15] VITALS (8 sets, daily range): BP systolic 112–147; BP diastolic 70–77; PULSE 64–84; RESP 15–18; TEMP 36.7–37.5; O2SAT 93–98; BMI 29.9
[2020-11-15 00:07] LABS: Glucose Point of Care 257 mg/dL (70-110)
--- NOTE | 2020-11-15 00:37 | CTR_ITS ---
PROCEDURE INFORMATION: Exam: CT Left Lower Extremity With Contrast, Foot Exam date and time: 11/15/2020 12:37 AM Age: 59 years old Clinical indication: Foot and toes; Left; Prior surgery; Surgery date: <1 month; Surgery type: Amp 2-3-4; Patient HX: L foot pain ? osteo L 4th; Additional info: Osteomyelitis, evaluate for abscess TECHNIQUE: Imaging protocol: CT of the Left lower extremity with intravenous contrast was performed. Exam focused on the foot. Radiation optimization: All CT scans at this facility use at least one of these dose optimization techniques: automated exposure control; mA and/or kV adjustment per patient size (includes targeted exams where dose is matched to clinical indication); or iterative reconstruction. Contrast material: OMNI 300; Contrast volume: 95 ml; Contrast route: INTRAVENOUS (IV); COMPARISON: CT foot w con [id number] 09/25/2020 9:14 PM RADIATION DOSE METRICS: Total DLP (mGy-cm): 142.81 FINDINGS: Bones/joints: There has been amputation of the 4th toe since the prior CT. There is new multifocal ill-defined erosion of the 4th metatarsal head consistent with osteomyelitis. Remote amputation of the 2nd and 3rd toes noted. Soft tissues: There is marked soft tissue edema in the forefoot surrounding the 4th metatarsal head. There is a fluid collection surrounding the 4th metatarsal head measuring 20 x 18 x 15 mm, extending to the skin surface. CT/CT foot LT w con [id number] IMPRESSION: 1. Erosions in the 4th metatarsal head consistent with osteomyelitis. 2. Small abscess surrounding the 4th metatarsal head. 3. Interval amputation of the 4th toe. Radiation Dose CTDIVOL = (mGy): DLP = 142.81 (mGy-cm)
[2020-11-15] MEDS: piperacillin-tazobactam 3.375 GM in sodium chloride 0.9% (plus) 50 ML IV ×3 (00:50→17:53)
[2020-11-15] MEDS: gabapentin 400 mg Capsule PO ×3 (00:50→17:52)
[2020-11-15] MEDS: iohexol 300 mg/mL 100 mL Btl IV (01:27)
--- NOTE | 2020-11-15 03:08 | PM.HP ---
Providers/Chief Complaint Primary Care Provider: Juany Guajardo DO Chief Complaint: L foot pain History of Present Illness Marquis Ballard is a 59 year old male with poorly controlled diabetes, HLD, HTN, current smoker, recently admitted at [facility] [place] [facility] between 621 05/13/2023 due to gangrene with bone exposure of the fourth left toe after injury and infection with surrounding cellulitis. He underwent amputation of the left fourth toe on 09/27/2020. Foot CT at that time was with possible osteomyelitis of the terminal phalanx of the fourth digit. Pathology showed acute gangrenous necrosis with acute and chronic osteomyelitis. Bony margins were not involved. He followed up with general surgery on October 13, 2020 where his incision was noted to be healing well, he was referred to wound care clinic but never made this appointment. He visited with his primary care doctor yesterday and complained of increasing pain over the left foot, foot was noted to be red and swollen at that time with some drainage from site of recent surgery. He was directed to come into the ER. CT of the foot today shows fluid collection surrounding the fourth metatarsal head measuring 20 x 18 x 15 mm and a new multifocal ill-defined erosion of the fourth metatarsal head consistent with osteomyelitis. Denies any constitutional symptoms such as fever chills etc. Review of Systems General: Reports: 10 or more systems reviewed and unremarkable except in HPI and below Const: Denies: fever(s), chills or body aches Eyes: Denies: change in vision, blurry vision or photophobia ENMT: Reports: hoarseness; Denies: throat pain, enlarged tonsils, odynophagia or nasal congestion Card: Denies: chest pain, palpitations, irregular heart rhythm, edema, swelling of feet/ankles, lightheadedness, pre-syncope, dyspnea on exertion or orthopnea Resp: Denies: dyspnea, productive cough, non-productive cough, wheezing, stridor, pain on inspiration, change in phlegm color, hemoptysis or chest congestion GI: Denies: abdominal pain, nausea, vomiting, hematemesis, coffee ground emesis, dysphagia, heartburn, diarrhea, constipation, GI cramping, change in stool character, hematochezia or melena : Denies: flank pain, dysuria, urinary frequency, urinary urgency, urinary hesitancy or hematuria Musc: Denies: neck pain, back pain, extremity pain, joint swelling, joint warmth or deformity Neuro: Denies: headache(s), numbness in extremities, weakness in extremities, sensory changes, difficulty walking, frequent falls, dizziness, vertigo, behavioral changes, Slurred speech present or seizure-like activity Psych: Denies: anxiety, depression, suicidal ideation or homicidal ideation Endo: Denies: polyuria, polydipsia, tired all the time, cold intolerance or hot flashes Ernesto/Lymph: Denies: easy bruising or easy bleeding Medications/Allergies Home Medications Medication Instructions Recorded Confirmed Last Taken Type lisinopril 5 mg tablet 5 mg PO DAILY 06/25/19 11/14/20 11/14/20 History liraglutide 0.6 mg/0.1 mL (18 mg/3 1.8 mg SUBCUT DAILY #9 ml 09/28/19 11/14/20 11/14/20 Rx mL) subcutaneous pen injector beta carotene 25,000 unit PO DAILY 10/06/19 11/14/20 11/14/20 History cholecalciferol (vitamin D3) 25 mcg PO DAILY 10/06/19 11/14/20 11/14/20 History [Vitamin D3] multivitamin 1 tab PO DAILY 10/06/19 11/14/20 11/14/20 History omega 0-obb-xgt-fish oil [Fish Oil] 1 cap PO BID 10/06/19 11/14/20 11/14/20 History acetaminophen [Tylenol Extra 500 mg PO TID PRN #0 tab 10/27/19 11/14/20 11/14/20 Rx Strength] cetirizine 10 mg capsule 10 mg PO DAILY 02/09/20 11/14/20 09/25/20 History metformin 1,000 mg tablet 1,000 mg PO BID #60 tab 07/17/20 11/14/20 11/14/20 Rx methocarbamol 500 mg tablet 500 mg PO BID PRN #60 tab 07/17/20 11/14/20 11/14/20 Rx duloxetine 60 mg capsule,delayed 60 mg PO BID #180 cap 09/11/20 11/14/20 11/14/20 Rx release testosterone cypionate 200 mg IM Q14D 09/25/20 11/14/20 Unknown History [Depo-Testosterone] Tresiba FlexTouch U-100 28 unit SUBCUT DAILY #3 ml 09/28/20 11/14/20 11/14/20 Rx nicotine 1 patch TRANSDERMAL DAILY PRN #30 09/28/20 11/14/20 Unknown Rx ea nicotine (polacrilex) 2 mg BUCCAL Q2H PRN #120 ea 09/28/20 11/14/20 Unknown Rx atorvastatin 40 mg tablet 40 mg PO DAILY #30 tab 10/09/20 11/14/20 11/13/20 Rx blood sugar diagnostic #100 ea 10/10/20 11/14/20 Unknown Rx metoprolol tartrate 25 mg tablet 25 mg PO BID #60 tab 10/24/20 11/14/20 11/14/20 Rx fenofibrate nanocrystallized 145 145 mg PO DAILY #90 tab 11/07/20 11/14/20 11/14/20 Rx mg tablet coenzyme Q10 [CoQ-10] 200 mg PO DAILY 11/14/20 11/14/20 11/14/20 History cyanocobalamin (vitamin B-12) 100 mcg PO DAILY 11/14/20 11/14/20 11/14/20 History [Vitamin B-12] gabapentin 400 mg PO BID 11/14/20 11/14/20 11/14/20 History insulin aspart U-100 [Novolog See Rx Instructions .ROUTE .COMPLEX 11/14/20 11/14/20 Unknown History Flexpen U-100 Insulin] melatonin 5 mg PO DAILY 11/14/20 11/14/20 11/13/20 History Allergies Allergy/AdvReac Type Severity Reaction Status Date / Time oseltamivir [From Tamiflu] Allergy ADR-Nausea Verified 11/14/20 13:09 triethanolamine Allergy ALGY-Rash Verified 11/14/20 13:09 [From Cerumenex] NSAIDS (Non-Steroidal AdvReac Mild Unknown Verified 11/14/20 13:09 Anti-Inflamma PFSH Acute PFSH: Medical History Controlled type 2 diabetes mellitus, with long-term current use of insulin Dry gangrene Dyslipidemia Essential hypertension HTN (hypertension), benign Hypotestosteronemia in male Low back pain radiating down leg Major depressive disorder Surgical History History of amputation of toe Right second and left second and third History of eye surgery History of total left hip arthroplasty Status post vasectomy Family History Other CAD (coronary artery disease) Cancer Diabetes Hypertension Social History Smoking and tobacco status: current every day smoker cigarettes Packs smoked per day: 1 Alcohol intake: former Vitals/I&O/Wt Last Vital Signs Temp 99.0 F 11/14/20 13:09 Pulse 82 11/15/20 00:39 Resp 16 11/15/20 00:39 BP 124/70 11/15/20 00:39 Pulse Ox 98 11/15/20 00:39 11/14/20 11/14/20 11/15/20 14:59 22:59 06:59 Intake Total 1300 / 1300 Balance 1300 / 1300 Weight last 48 hrs Weight 92.079 kg Physical Exam Narrative: EXAM NARRATIVE: General: No acute distress, AO x3 HEENT: PERRLA, pupils bilaterally equal and reactive, pallors not present Chest: Normal vesicular breath sounds, no added sounds, equal good air entry bilaterally CVS: S1-S2 regular, no murmurs, no tachycardia, no gallops, no rubs Abdomen: Soft, nontender, no organomegaly, bowel sounds present Neuro: No focal deficits, no facial deformity, AO x3, power 5/5 in all limbs Extremities: Noted wound dehiscence at site of recent surgery with pus discharge. mild surrounding erythema and tenderness Data : 11/14/20 20:35 11/14/20 20:35 Micro: Microbiology 11/14/20 20:43 Blood Culture - Preliminary Blood SPECIMEN COLLECTED 11/14/20 20:35 Blood Culture - Preliminary Blood SPECIMEN COLLECTED Attestation for Other Data: I personally reviewed and interpreted the following: Other data: Laboratory Results WBC 14.3 10^3/uL (4.0-10.0) H 11/14/20 20:35 RBC 5.30 10^6/uL (4.1-5.3) 11/14/20 20:35 Hgb 15.5 g/dL (11.7-16.6) 11/14/20 20:35 Hct 47.6 % (42.0-52.0) 11/14/20 20:35 MCV 89.8 fL (80-94) 11/14/20 20:35 MCH 29.2 pg (28.0-34.0) 11/14/20 20:35 MCHC 32.6 g/dL (30.0-36.0) 11/14/20 20:35 RDW 13.3 % (12.1-15.1) 11/14/20 20:35 Plt Count 269 10^3/cmm (130-400) 11/14/20 20:35 MPV 12.2 fL (7.4-10.4) H 11/14/20 20:35 Neut % (Auto) 72.9 % 11/14/20 20:35 Lymph % (Auto) 14.2 % 11/14/20 20:35 [place] % (Auto) 11.0 % 11/14/20 20:35 Eos % (Auto) 0.8 % 11/14/20 20:35 Baso % (Auto) 0.6 % 11/14/20 20:35 Neut # (Auto) 10.42 10^3/uL (1.8-7.7) H 11/14/20 20:35 Lymph # (Auto) 2.0 10^3/uL (0.8-4.8) 11/14/20 20:35 [place] # (Auto) 1.6 10^3/uL (0.2-0.9) H 11/14/20 20:35 Eos # (Auto) 0.1 10^3/uL (0.0-0.8) 11/14/20 20:35 Baso # (Auto) 0.1 10^3/uL (0.0-0.1) 11/14/20 20:35 Nucleated RBC % (auto) 0 % 11/14/20 20:35 Nucleated RBCs # 0.0 /100WBC 11/14/20 20:35 Sodium 135 mmol/L (136-145) L 11/14/20 20:35 Potassium 4.5 mmol/L (3.5-5.1) 11/14/20 20:35 Chloride 96 mmol/L (98-107) L 11/14/20 20:35 Carbon Dioxide 29 mmol/L (22-29) 11/14/20 20:35 Anion Gap 14.5 (5-19) 11/14/20 20:35 BUN 19 mg/dL (8-23) 11/14/20 20:35 Creatinine 0.9 mg/dL (0.7-1.2) 11/14/20 20:35 GFR Calculation 86.1 mL/min (90-130) L 11/14/20 20:35 Glucose 322 mg/dL (65-115) H 11/14/20 20:35 POC Glucose 257 mg/dL (70-110) H 11/15/20 00:01 Calculated Osmolality 295 mOsm/kg (285-295) 11/14/20 20:35 Calcium 9.1 mg/dL (8.5-10.5) 11/14/20 20:35 Total Bilirubin 0.3 mg/dL (0.15-1.2) 11/14/20 20:35 AST 12 U/L (0-40) 11/14/20 20:35 ALT 16 U/L (0-41) 11/14/20 20:35 Alkaline Phosphatase 81 IU/L (40-130) 11/14/20 20:35 C-Reactive Protein 36.2 mg/L (0.0-4.9) H 11/14/20 20:35 Total Protein 7.5 g/dL (6.6-8.7) 11/14/20 20:35 Albumin 3.9 g/dL (3.5-5.2) 11/14/20 20:35 Globulin 3.6 g/dL (1.3-4.6) 11/14/20 20:35 Serum Ketones Negative (Negative) 11/14/20 20:35 Impressions Foot X-Ray 11/14/20 21:01 IMPRESSION: Suspect osteomyelitis at the 4th metatarsal head. Foot CT 11/15/20 00:37 IMPRESSION: 1. Erosions in the 4th metatarsal head consistent with osteomyelitis. 2. Small abscess surrounding the 4th metatarsal head. 3. Interval amputation of the 4th toe. Radiation Dose CTDIVOL = (mGy): DLP = 142.81 (mGy-cm) A&P Assessment and plan (1) Osteomyelitis of left foot: Status: Acute Qualifiers: Osteomyelitis type: other acute Qualified Code(s): M86.172 - Other acute osteomyelitis, left ankle and foot (2) Abscess: Status: Acute Additional A&P Information Patient is status post amputation of the fourth toe due to gangrene and osteomyelitis in September 2020. Now presenting with increasing pain and pus discharge at site of prior surgery. Small area of wound dehiscence noted. CT today suggestive of small abscess around the fourth metatarsal head and associated bony destruction concerning for osteomyelitis. Start empiric antibiotic treatment with Zosyn and vancomycin. Trend leukocytosis. Surgical consult obtained from the ER. N.p.o. post midnight in case debridement indicated after surgical assessment. Insulin sliding scale while inpatient. Continue lisinopril for hypertension. Attestations Medical Necessity Statement*: Anticipate greater than 2 midnight admission for osteomyelitis, foot abscess, need for IV antibiotics, surgical assessment Coding Level of Care Code Acute Associate Manager for Osmar Smith Diagnoses Osteomyelitis of left foot M86.172 Osteomyelitis type: other acute Abscess L02.91
--- NOTE | 2020-11-15 05:07 | PC.NURSE ---
Admit Note Patient admitted to [258] from [ER] via [wheelchair]. Covering service notified. Patient presents with [osteomyelitis of the left foot]. Orders reviewed & will continue to monitor. Patient and/or printing supplies sales representative oriented to environment, equipment, and informed of the following as found in the admission booklet: patient rights & responsibilities, visitor policy, hand and respiratory hygiene practice. Other education includes: [medication, pain control, diet orders and oxygen safety]. Patient and/or printing supplies sales representative [verbalized understanding].
[2020-11-15] MEDS: lisinopril 5 mg Tablet PO (09:19)
[2020-11-15] MEDS: metoprolol tartrate 25 mg Tablet PO ×2 (09:19→17:52)
[2020-11-15] MEDS: pantoprazole DR 40 mg Tablet PO (09:19)
[2020-11-15] MEDS: duloxetine 60 mg Capsule PO ×2 (09:19→17:52)
[2020-11-15] MEDS: atorvastatin 40 mg Tablet PO (09:19)
[2020-11-15] MEDS: enoxaparin 40 mg/0.4 mL Syringe SUBCUT (09:19)
[2020-11-15] MEDS: fenofibrate 145 mg Tablet PO (09:19)
[2020-11-15 09:45] LABS: Glucose Point of Care 314 mg/dL (70-110)
[2020-11-15 11:36] LABS: Glucose Point of Care 278 mg/dL (70-110)
--- NOTE | 2020-11-15 11:44 | PC.CHAP ---
Pastoral Care Encounter/Spiritual Assessment Type of Contact [] Declined dredge or barge shore hand visit [] Patient/Family/Request visit [] Outpatient visit [] Follow-up visit [] Physician referral [] Code/Alert [x] Routine visit [] Staff referral [] Actively dying [x] Patient sleeping [] Family support [] [] Out of room [] Palliative care [] [] Receiving care in room [] Pre-surgical visit [] Trauma [] Long length of stay [] ICU visit [] Other: Relational/Emotional Strength [] Patient feels connected with others/family/visitors/staff [] Distress [] Loneliness/isolation [] Abandonment Spirituality of Patient [] Person of [place] [] Attends Gnosticist of their [place] [] Believes in Prayer [] Reads Bible or Confucianist materials [] There are Spiritual issues to be addressed Python Django Developer Interventions [] Prayer [] Active listening [] Non-anxious presence [] Spiritual/emotional support [] Crisis/trauma care [] Spiritual counseling [] Bereavement support [] Provided bereavement packet [] Provided Bible/devotional materials [] Provided toy/stuffed animal, coloring book to patient or family member [] Provided Communion [] Anointing/Philip [] Salvation [x] Completed spiritual assessment [] Other: Impact on Illness or Injury [] Angry [] Fearful [] Anxious [] Often cries [] Exhaustion [] Unable to work [] Unable to attend islam [] Unable to walk/stand [] Unable to read [] Unable to drive [] Unable to eat/drink [] Unable to sleep [] Unable to be with family [] Patient intubated [] Other: Summary Time spent with patient
[2020-11-15] MEDS: vancomycin 1,500 MG/300 ML PIGGYBACK 200 MG IV (12:14)
[2020-11-15 14:54] LABS: Coronavirus Test Green County Not Detected
[2020-11-15 17:15] LABS: Glucose Point of Care 367 mg/dL (70-110)
--- NOTE | 2020-11-15 17:20 | P.CONIM_ITS ---
Providers/Reason For Consult Consulting Physician/Specialty*: General Surgery Dr. Flores Reason for Consult*: osteomyelitis left fourth metatarsal Attending Physician: Pérez Brown Primary Care Provider: Juany Guajardo DO History of Present Illness History of Present Illness Marquis Ballard is a 59 year old male is a poorly controlled cellulitis of the left foot. Patient had previously undergone amputation of left fourth toe on 09/27/2020 and had been doing well. I had removed his sutures on 10/13/2020. Patient states that he has been unable to take care of his feet due to his 's medical conditions. He denies any fevers, chills, drainage from the surgical site. He was seen in the emergency room where a CT of his foot showed osteomyelitis of the fourth left metatarsal head and a 2 cm adjacent abscess Review of Systems General: Reports: 10 or more systems reviewed and unremarkable except in HPI and below Meds/Allergies Home Medications and Allergies Home Medications Medication Instructions Recorded Confirmed Last Taken Type lisinopril 5 mg tablet 5 mg PO DAILY 06/25/19 11/14/20 11/14/20 History liraglutide 0.6 mg/0.1 mL (18 mg/3 1.8 mg SUBCUT DAILY #9 ml 09/28/19 11/14/20 11/14/20 Rx mL) subcutaneous pen injector beta carotene 25,000 unit PO DAILY 10/06/19 11/14/20 11/14/20 History cholecalciferol (vitamin D3) 25 mcg PO DAILY 10/06/19 11/14/20 11/14/20 History [Vitamin D3] multivitamin 1 tab PO DAILY 10/06/19 11/14/20 11/14/20 History omega 1-ahw-atc-fish oil [Fish Oil] 1 cap PO BID 10/06/19 11/14/20 11/14/20 History acetaminophen [Tylenol Extra 500 mg PO TID PRN #0 tab 10/27/19 11/14/20 11/14/20 Rx Strength] cetirizine 10 mg capsule 10 mg PO DAILY 02/09/20 11/14/20 09/25/20 History metformin 1,000 mg tablet 1,000 mg PO BID #60 tab 07/17/20 11/14/20 11/14/20 Rx methocarbamol 500 mg tablet 500 mg PO BID PRN #60 tab 07/17/20 11/14/20 11/14/20 Rx duloxetine 60 mg capsule,delayed 60 mg PO BID #180 cap 09/11/20 11/14/20 11/14/20 Rx release testosterone cypionate 200 mg IM Q14D 09/25/20 11/14/20 Unknown History [Depo-Testosterone] Tresiba FlexTouch U-100 28 unit SUBCUT DAILY #3 ml 09/28/20 11/14/20 11/14/20 Rx nicotine 1 patch TRANSDERMAL DAILY PRN #30 09/28/20 11/14/20 Unknown Rx ea nicotine (polacrilex) 2 mg BUCCAL Q2H PRN #120 ea 09/28/20 11/14/20 Unknown Rx atorvastatin 40 mg tablet 40 mg PO DAILY #30 tab 10/09/20 11/14/20 11/13/20 Rx blood sugar diagnostic #100 ea 10/10/20 11/14/20 Unknown Rx metoprolol tartrate 25 mg tablet 25 mg PO BID #60 tab 10/24/20 11/14/20 11/14/20 Rx fenofibrate nanocrystallized 145 145 mg PO DAILY #90 tab 11/07/20 11/14/20 11/14/20 Rx mg tablet coenzyme Q10 [CoQ-10] 200 mg PO DAILY 11/14/20 11/14/20 11/14/20 History cyanocobalamin (vitamin B-12) 100 mcg PO DAILY 11/14/20 11/14/20 11/14/20 History [Vitamin B-12] gabapentin 400 mg PO BID 11/14/20 11/14/20 11/14/20 History insulin aspart U-100 [Novolog See Rx Instructions .ROUTE .COMPLEX 11/14/20 11/14/20 Unknown History Flexpen U-100 Insulin] melatonin 5 mg PO DAILY 11/14/20 11/14/20 11/13/20 History Allergies Allergy/AdvReac Type Severity Reaction Status Date / Time oseltamivir [From Tamiflu] Allergy ADR-Nausea Verified 11/14/20 13:09 triethanolamine Allergy ALGY-Rash Verified 11/14/20 13:09 [From Cerumenex] NSAIDS (Non-Steroidal AdvReac Mild Unknown Verified 11/14/20 13:09 Anti-Inflamma Current Medications Current Medications Generic Name Dose Route Start Last Admin Trade Name Freq PRN Reason Stop Dose Admin Atorvastatin Calcium 40 mg 11/15/20 09:00 11/15/20 09:19 Atorvastatin 40 Mg Tablet PO 40 mg DAILY BRIANA Administration Duloxetine HCl 60 mg 11/15/20 09:00 11/15/20 09:19 Duloxetine 60 Mg Capsule PO 60 mg BID BRIANA Administration Enoxaparin Sodium 40 mg 11/15/20 09:00 11/15/20 09:19 Enoxaparin 40 Mg/0.4 Ml Syringe SUBCUT 40 mg DAILY BRIANA Administration Fenofibrate 145 mg 11/15/20 09:00 11/15/20 09:19 Fenofibrate 145 Mg Tablet PO 145 mg DAILY BRIANA Administration Gabapentin 400 mg 11/15/20 09:00 11/15/20 09:19 Gabapentin 400 Mg Capsule PO 400 mg BID BRIANA Administration Vancomycin/PEG/NADA/Lysine/Water 1,500 mg in 300 mls @ 200 mls/hr 11/15/20 10:30 11/15/20 14:38 Vancocin IV Infused Q12H BRIANA Infusion Piperacillin Sod/Tazobactam 50 mls @ 12.5 mls/hr 11/15/20 09:30 11/15/20 14:38 Sod 3.375 gm/ Sodium Chloride IV Infused Q8H BRIANA Infusion Protocol Insulin Aspart 0 unit 11/15/20 08:00 11/15/20 12:16 Insulin Aspart 100 Unit/1 Ml SUBCUT 12 unit WM&BEDTIME BRIANA Administration Protocol Lisinopril 5 mg 11/15/20 09:00 11/15/20 09:19 Lisinopril 5 Mg Tablet PO 5 mg DAILY BRIANA Administration Metoprolol Tartrate 25 mg 11/15/20 09:00 11/15/20 09:19 Metoprolol Tartrate 25 Mg Tablet PO 25 mg BID BRIANA Administration Pantoprazole Sodium 40 mg 11/15/20 09:00 11/15/20 09:[address] 40 Mg Tablet PO 40 mg DAILY BRIANA Administration PFSH Acute PFSH: Medical History Controlled type 2 diabetes mellitus, with long-term current use of insulin Dry gangrene Dyslipidemia Essential hypertension HTN (hypertension), benign Hypotestosteronemia in male Low back pain radiating down leg Major depressive disorder Surgical History History of amputation of toe Right second and left second and third History of eye surgery History of total left hip arthroplasty Status post vasectomy Family History Other CAD (coronary artery disease) Cancer Diabetes Hypertension Social History Smoking and tobacco status: current every day smoker cigarettes Packs smoked per day: 1 Alcohol intake: former Vitals/I&O/Wt Last Vital Signs Temp 98.1 F 11/15/20 17:00 Pulse 77 11/15/20 17:00 Resp 16 11/15/20 17:00 BP 112/70 11/15/20 17:00 Pulse Ox 94 11/15/20 17:00 11/15/20 11/15/20 11/15/20 06:59 14:59 22:59 Intake Total 1350 / 1350 350 / 350 Output Total 700 / 700 Balance 1350 / 1350 -350 / -350 Weight last 48 hrs Weight 203 lb Weight 203 lb Physical Exam Narrative: EXAM NARRATIVE: HEENT: Normocephalic Eye: Sclera /conjunctiva normal Abdomen: Soft to palpation Neurological: Oriented to place person and time Skin: Intact, surgical incision over the left fourth metatarsal is almost completely healed except for a small scab, no cellulitis or purulent drainage noted Data Micro: Micro: Microbiology 11/14/20 20:43 Blood Culture - Pr eliminary Blood SPECIMEN [facility] 11/14/20 20:35 Blood Culture - Pr eliminary Blood SPECIMEN [facility] A&P Assessment and plan (1) Osteomyelitis of left foot: 59-year-old male who is a poorly controlled diabetic with multiple prior amputations. Patient was noted to have osteomyelitis of the left fourth metatarsal head on CT scan performed in the ER. The CT scan also showed a 2 cm abscess but at this point the wound is almost completely healed patient does not have any cellulitis or purulent drainage. No surgical intervention required at this point PICC line placement Discharge home on oral antibiotics and start 6 weeks of IV antibiotic therapy as per Dr. Champion's recommendations Follow-up with Dr. Champion and general surgery Apply vitamin A&E ointment twice daily on bilateral lower extremity Status: Acute Qualifiers: Osteomyelitis type: other acute Qualified Code(s): M86.172 - Other acute osteomyelitis, left ankle and foot Consult Attestations Medical Necessity Statement: As per attending physician Coding Level of Care Code Acute Telephone Interceptor Operator for Osmar Smith Diagnoses Osteomyelitis of left foot M86.172 Osteomyelitis type: other acute
--- NOTE | 2020-11-15 20:34 | P.PN_ITS ---
Vitals/I&O/Wt Last Vital Signs Temp 99.5 F 11/15/20 20:00 Pulse 69 11/15/20 20:00 Resp 15 11/15/20 20:00 BP 143/70 11/15/20 20:00 Pulse Ox 98 11/15/20 20:00 11/15/20 11/15/20 11/15/20 06:59 14:59 22:59 Intake Total 1350 / 1350 350 / 350 360 / 710 Output Total 700 / 700 650 / 1350 Balance 1350 / 1350 -350 / -350 -290 / -640 Weight last 48 hrs Weight 92.079 kg Weight 92.079 kg Data : 11/14/20 20:35 11/14/20 20:35 Micro: Microbiology 11/14/20 20:43 Blood Culture - Preliminary Blood SPECIMEN COLLECTED 11/14/20 20:35 Blood Culture - Preliminary Blood SPECIMEN COLLECTED A&P Assessment and plan (1) Osteomyelitis of left foot: Status: Acute Qualifiers: Osteomyelitis type: other acute Qualified Code(s): M86.172 - Other acute osteomyelitis, left ankle and foot (2) Abscess: Status: Acute Additional A&P Information Patient is status post amputation of the fourth toe due to gangrene and osteomyelitis in September 2020. Now presenting with increasing pain and pus discharge at site of prior surgery. Small area of wound dehiscence noted. CT today suggestive of small abscess around the fourth metatarsal head and associated bony destruction concerning for osteomyelitis. Start empiric antibiotic treatment with Zosyn and vancomycin. Trend leukocytosis. Surgical consult obtained from the ER. N.p.o. post midnight in case debridement indicated after surgical assessment. Insulin sliding scale while inpatient. Continue lisinopril for hypertension. Coding Level of Care Code Acute Planning Coordinator for [facility] Fwd Diagnoses Osteomyelitis of left foot M86.172 Osteomyelitis type: other acute Abscess L02.91
--- NOTE | 2020-11-15 20:48 | PM.DCS ---
Discharge Providers Date of Admission: 11/15/20 03:46 Date of Discharge: November 15, 2020 Attending Provider at Admission: Belén Champion MD Attending Provider at Discharge: Pérez Brown Primary Care Provider: Juany Guajardo DO Diagnoses at Discharge Discharge Diagnosis (1) Osteomyelitis of left foot: Status: Acute Qualifiers: Osteomyelitis type: other acute Qualified Code(s): M86.172 - Other acute osteomyelitis, left ankle and foot (2) Abscess: Status: Acute Reason for Visit Reason for Visit: L foot pain Hospital Course Hospital Course 59 year old male with poorly controlled diabetes, HLD, HTN, current smoker, recently admitted at [facility] between 621 05/13/2023 due to gangrene with bone exposure of the fourth left toe after injury and infection with surrounding cellulitis. He underwent amputation of the left fourth toe on 09/27/2020. Foot CT at that time was with possible osteomyelitis of the terminal phalanx of the fourth digit. Pathology showed acute gangrenous necrosis with acute and chronic osteomyelitis. Bony margins were not involved. He followed up with general surgery on October 13, 2020 where his incision was noted to be healing well, he was referred to wound care clinic but never made this appointment. He visited with his primary care doctor yesterday and complained of increasing pain over the left foot, foot was noted to be red and swollen at that time with some drainage from site of recent surgery. He was directed to come into the ER. CT of the foot today shows fluid collection surrounding the fourth metatarsal head measuring 20 x 18 x 15 mm and a new multifocal ill-defined erosion of the fourth metatarsal head consistent with osteomyelitis. Denies any constitutional symptoms such as fever chills etc. Upon admission to the hospital patient was started on broad-spectrum antibiotics. Did not have any fever episodes. General surgery was consulted. Patient did not appear to have an abscess. Further discussed with infectious disease. [place] comfortable discharging home on oral Levaquin and Augmentin for an additional 2 weeks. Outpatient follow-up was arranged. Discharge in stable condition. Physical Exam Narrative: EXAM NARRATIVE: General: No acute distress, AO x3 HEENT: PERRLA, pupils bilaterally equal and reactive, pallors not present Chest: Normal vesicular breath sounds, no added sounds, equal good air entry bilaterally CVS: S1-S2 regular, no murmurs, no tachycardia, no gallops, no rubs Abdomen: Soft, nontender, no organomegaly, bowel sounds present Neuro: No focal deficits, no facial deformity, AO x3, power 5/5 in all limbs Extremities: No discharge noted. Very minimal erythema around wound site. Discharge Data Data Completed and Pending: Completed Studies During Hospitalization Category Date Time Status CT foot LT w con [id number] Urgent Cat Scan 11/15/20 00:37 Completed XR foot LT min 3V * [id number] Stat Exams 11/14/20 21:01 Completed Pending at discharge Category Date Time Status Basic Metabolic P rudolph AM LABS Lab 11/16/20 04:00 Ordered Blood Culture Sta t Lab 11/14/20 20:43 Results CMP [Comprehensiv e Metabolic Panel] AM LABS Lab 11/16/20 04:00 Ordered Complete Blood Co unt w/Auto AM LABS Lab 11/16/20 04:00 Ordered Complete Blood Co unt w/Auto AM LABS Lab 11/16/20 04:00 Ordered Vancomycin Trough Timed Lab 11/16/20 09:30 Ordered Labs from last 24 hours 11/15/20 11/15/20 11/15/20 17:13 10:56 09:39 WBC RBC Hgb Hct MCV MCH MCHC RDW Plt Count MPV Neut % (Auto) Lymph % (Auto) Castro % (Auto) Eos % (Auto) Baso % (Auto) Neut # (Auto) Lymph # (Auto) Castro # (Auto) Eos # (Auto) Baso # (Auto) Nucleated RBC % (a uto) Nucleated RBCs # Sodium Potassium Chloride Carbon Dioxide Anion Gap BUN Creatinine GFR Calculation Glucose POC Glucose 367 H 278 H 314 H Calculated Osmolal ity Calcium Total Bilirubin AST ALT Alkaline Phosphata se C-Reactive Protein Total Protein Albumin Globulin Serum Ketones Nasal/Oral COVID-1 9 PCR 11/15/20 11/15/20 11/14/20 04:15 00:01 20:35 WBC RBC Hgb Hct MCV MCH MCHC RDW Plt Count MPV Neut % (Auto) Lymph % (Auto) Castro % (Auto) Eos % (Auto) Baso % (Auto) Neut # (Auto) Lymph # (Auto) Castro # (Auto) Eos # (Auto) Baso # (Auto) Nucleated RBC % (a uto) Nucleated RBCs # Sodium Potassium Chloride Carbon Dioxide Anion Gap BUN Creatinine GFR Calculation Glucose POC Glucose 257 H Calculated Osmolal ity Calcium Total Bilirubin AST ALT Alkaline Phosphata se C-Reactive Protein Total Protein Albumin Globulin Serum Ketones Negative Nasal/Oral COVID-1 9 PCR Not detected 11/14/20 11/14/20 20:35 20:35 WBC 14.3 H RBC 5.30 Hgb 15.5 Hct 47.6 MCV 89.8 MCH 29.2 MCHC 32.6 RDW 13.3 Plt Count 269 MPV 12.2 H Neut % (Auto) 72.9 Lymph % (Auto) 14.2 Castro % (Auto) 11.0 Eos % (Auto) 0.8 Baso % (Auto) 0.6 Neut # (Auto) 10.42 H Lymph # (Auto) 2.0 Castro # (Auto) 1.6 H Eos # (Auto) 0.1 Baso # (Auto) 0.1 Nucleated RBC % (a uto) 0 Nucleated RBCs # 0.0 Sodium 135 L Potassium 4.5 Chloride 96 L Carbon Dioxide 29 Anion Gap 14.5 BUN 19 Creatinine 0.9 GFR Calculation 86.1 L Glucose 322 H POC Glucose Calculated Osmolal ity 295 Calcium 9.1 Total Bilirubin 0.3 AST 12 ALT 16 Alkaline Phosphata se 81 C-Reactive Protein 36.2 H Total Protein 7.5 Albumin 3.9 Globulin 3.6 Serum Ketones Nasal/Oral COVID-1 9 PCR Vitals: Last Vital Signs Temp 99.5 F 11/15/20 20:00 Pulse 69 11/15/20 20:00 Resp 15 11/15/20 20:00 BP 143/70 11/15/20 20:00 Pulse Ox 98 11/15/20 20:00 Discharge Plan Discharge Patient Disposition: Home Condition: Stable Prescriptions: New Augmentin 875-125 mg tablet 1 tab PO BID Qty: 28 RF: 0 levofloxacin 750 mg tablet 750 mg PO DAILY 14 Days Qty: 14 RF: 0 Continued Zyrtec 10 mg capsule 10 mg PO DAILY RF: 0 lisinopril 5 mg tablet 5 mg PO DAILY RF: 0 Victoza 3-John 0.6 mg/0.1 mL (18 mg/3 mL) pen injector 1.8 mg SUBCUT DAILY Qty: 9 RF: 5 metformin 1,000 mg tablet 1,000 mg PO BID Qty: 60 RF: 2 methocarbamol 500 mg tablet 500 mg PO BID PRN (Reason: pain) Qty: 60 RF: 3 duloxetine 60 mg capsule,delayed release(DR/EC) 60 mg PO BID Qty: 180 RF: 0 atorvastatin 40 mg tablet 40 mg PO DAILY Qty: 30 RF: 1 metoprolol tartrate 25 mg tablet 25 mg PO BID Qty: 60 RF: 1 Tricor 145 mg tablet 145 mg PO DAILY Qty: 90 RF: 0 multivitamin Tablet 1 tab PO DAILY RF: 0 beta carotene 25,000 unit Capsule 25,000 unit PO DAILY RF: 0 cholecalciferol (vitamin D3) [Vitamin D3] 25 mcg (1,000 unit) Capsule 25 mcg PO DAILY RF: 0 omega [id number] oil [Fish Oil] 1,000 mg (120 mg-180 mg) Capsule 1 cap PO BID RF: 0 acetaminophen [Tylenol Extra Strength] 500 mg Tablet 500 mg PO TID PRN (Reason: Pain) Qty: 0 RF: 0 testosterone cypionate [Depo-Testosterone] 100 mg/mL oil 200 mg IM Q14D RF: 0 Tresiba FlexTouch U-100 100 unit/mL (3 mL) insulin pen 28 unit SUBCUT DAILY Qty: 3 RF: 2 nicotine (polacrilex) 2 mg Gum 2 mg buccal Q2H PRN (Reason: Withdrawal) Qty: 120 RF: 3 nicotine 21 mg/24 hr Patch 24 Hour 1 patch transdermal DAILY PRN (Reason: Withdrawal) Qty: 30 RF: 0 Novolog Flexpen U-100 Insulin 100 unit/mL (3 mL) insulin pen See Rx Instructions .ROUTE .COMPLEX RF: 0 gabapentin 400 mg capsule 400 mg PO BID RF: 0 Vitamin B-12 100 mcg Tablet 100 mcg PO DAILY RF: 0 CoQ-10 100 mg Capsule 200 mg PO DAILY RF: 0 melatonin 5 mg Tablet 5 mg PO DAILY RF: 0 No Action (DME) OneTouch Verio test strips Strip See Rx Instructions .Route Qty: 100 RF: 11 Discharge Orders: Discharge Order (Routine); Ordered 11/15/20 Ordered By: Pérez Brown Referrals: [place] In Home Service Set UP [Other] (Call this number to get In home services set up. They will ask you questions and based off your answers you are given points. You have to have a certain number of points to qualify for in home services.) Ke Flores MD [Physician] - 4-7 days Belén Champion MD [Hospitalist] - 1 week Juany Guajardo DO [Primary Care Provider] - 1 week Discharge Diet: Cardiac and Diabetic Discharge Activity: Increase activity as tolerated Patient Instructions: Amoxicillin/Clavulanate Potassium (By mouth), Levofloxacin (By mouth), Opioid Safety Discharge Attestations Time Spent in Discharge Care*: greater than 30 min Specific Discharge Activities: educating patient, discussing with pcp/other providers, discussing with correctional case records supervisor/social workers/dc planners, documenting/other paperwork and evaluating patient/reviewing data Status at Discharge: Cognitive status at discharge: cognitively intact, Behavioral status at discharge: cooperative, Functional status at discharge: independent ambulation Overall status at discharge: patient is progressing back to baseline Quality Metrics Clinical Quality Measures During this hospital stay, did patient experience: None Coding Level of Care Code Acute Chg FW DC note Diagnoses Osteomyelitis of left foot M86.172 Osteomyelitis type: other acute Abscess L02.91
[2020-11-15 21:32] LABS: Glucose Point of Care 334 mg/dL (70-110)
--- NOTE | 2020-11-15 21:47 | PC.NURSE ---
Discharge Patient off floor at this time via wheelchair with Odessa Farr LPN to private vehicle with daughter driving. Patient taking all personal belongings with him. Patient given discharge instructions and verbalizes understanding that new prescriptions were sent to [facility] pharmacy at [facility]. Patient verbalizes understanding of followup appointments. No pain at this time. IV x2 removed prior to discharge.
--- NOTE | 2020-11-20 12:16 | PC.SOCIAL ---
discharge follow up call made to patient. Patient has follow up tomorrow with Dr. Flores and virtual visit with Dr. Champion 11-21 also scheduled. Patient has been taking antibiotics as prescribed but says he isn't getting any better. 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
--- NOTE | 2020-11-20 16:17 | PC.RESP ---
SMOKING CESSATION INFORMATION SENT TO PATIENT.
== END 2020-11-15 21:50 | disposition home or self-care (01) | DRG 638 ==
LOC: ER 11-15 03:54 → MEDSURG 11-15 03:59
PROVIDERS: Physician Assistant; Admitting Provider Student in an Organized Health Care Education/Training Program; Emergency Provider Emergency Medicine; PCP Family Medicine; Visit Provider Hospitalist
DX: E11.69 Type 2 diabetes mellitus with other specified complication (principal); M86.8X7 Other osteomyelitis, ankle and foot; L03.116 Cellulitis of left lower limb; E11.40 Type 2 diabetes mellitus with diabetic neuropathy, unspecified; E78.5 Hyperlipidemia, unspecified; I10 Essential (primary) hypertension; F10.11 Alcohol abuse, in remission; F17.210 Nicotine dependence, cigarettes, uncomplicated; Z79.4 Long term (current) use of insulin; Z80.9 Family history of malignant neoplasm, unspecified; Z83.3 Family history of diabetes mellitus; Z82.49 Family history of ischemic heart disease and other diseases of the circulatory system; Z88.8 Allergy status to other drugs, medicaments and biological substances; Z98.52 Vasectomy status; Z89.422 Acquired absence of other left toe(s)
CPT/HCPCS: 36416; 73630; 73701; 80053; 82009; 82962; 85025; 86140; 87040; 87635; 96365; 96367; 96372; 96375; 99285; J1650; J1815; J2543; J3370; J7030; Q9967

== ENCOUNTER 2020-11-22 13:05 | Outpatient (CLI) | payer MEDICAID, SELFPAY | END 2020-11-22 13:06 | disposition home or self-care (01) | LOC: WOUND 13:07 | PROVIDERS: PCP Family Medicine; Visit Provider Thoracic Surgery (Cardiothoracic Vascular Surgery) | DX: I96 Gangrene, not elsewhere classified (principal); E11.621 Type 2 diabetes mellitus with foot ulcer; L97.424 Non-pressure chronic ulcer of left heel and midfoot with necrosis of bone; F17.210 Nicotine dependence, cigarettes, uncomplicated | CPT/HCPCS: 11044; 87070; 87176; 87205; G0463 ==

== ENCOUNTER 2020-11-24 11:30 | Outpatient (CLI) | payer MEDICAID, SELFPAY ==
--- NOTE | 2020-11-24 11:44 | XR_ITS ---
WS: [id number] Chest 2 views, 11/24/2020 Clinical Data: DIABETIC FOOT ULCER Comparison: PA and lateral chest, 06/16/2018. Findings: No nodules, masses or effusions are seen. The heart is normal. The pulmonary vascularity is not increased. No pneumonia or pneumothorax is seen. The aortic arch and descending aorta show calci fication and tortuosity. XR/XR chest 2V* [id number] Impression: Atherosclerosis.
--- NOTE | 2020-11-24 11:55 | ECG_ITS ---
[facility] Test Date: 2020-11-24 Pat Name: Marquis Ballard Department: Room: Gender: Male [employer]: : 1960 Requested By: Marquis Tabares Order Number: [id number] Dunn MD: Chuyita Sotelo M.D. Measurements Intervals [place] Rate: 92 P: 42 [place]: 152 QRS: 44 QRSD: 102 T: 60 QT: 329 QTc: 407 Interpretive Statements SINUS RHYTHM Compared to ECG 06/10/2018 00:18:02 Sinus tachycardia no longer present Myocardial infarct finding no longer present Electronically Signed On 11-24-2020 19:40:21 CDT by Chuyita Sotelo M.D. [id number]
== END 2020-11-24 11:31 | disposition home or self-care (01) ==
LOC: RT 11:40
PROVIDERS: PCP Family Medicine; Visit Provider Thoracic Surgery (Cardiothoracic Vascular Surgery)
DX: E11.621 Type 2 diabetes mellitus with foot ulcer (principal); I70.90 Unspecified atherosclerosis
CPT/HCPCS: 71046; 93005

== ENCOUNTER 2020-11-29 08:16 | Outpatient (CLI) | payer MEDICAID, SELFPAY | END 2020-11-29 08:17 | disposition home or self-care (01) | LOC: WOUND 08:17 | PROVIDERS: PCP Family Medicine; Visit Provider Nurse Practitioner Family | DX: I96 Gangrene, not elsewhere classified (principal); E11.621 Type 2 diabetes mellitus with foot ulcer; L97.422 Non-pressure chronic ulcer of left heel and midfoot with fat layer exposed; F17.210 Nicotine dependence, cigarettes, uncomplicated | CPT/HCPCS: 11042; 82962; G0277 ==

== ENCOUNTER 2020-11-30 07:47 | Outpatient (CLI) | payer MEDICAID, SELFPAY | END 2020-11-30 07:48 | disposition home or self-care (01) | LOC: WOUND 07:48 | PROVIDERS: PCP Family Medicine; Visit Provider Emergency Medicine | DX: E11.621 Type 2 diabetes mellitus with foot ulcer (principal); L97.426 Non-pressure chronic ulcer of left heel and midfoot with bone involvement without evidence of necrosis; F17.210 Nicotine dependence, cigarettes, uncomplicated | CPT/HCPCS: 82962; G0277 ==

== ENCOUNTER 2020-12-01 07:46 | Outpatient (CLI) | payer MEDICAID, SELFPAY | END 2020-12-01 07:47 | disposition home or self-care (01) | LOC: WOUND 07:46 | PROVIDERS: PCP Family Medicine; Visit Provider Surgery | DX: E11.621 Type 2 diabetes mellitus with foot ulcer (principal); L97.426 Non-pressure chronic ulcer of left heel and midfoot with bone involvement without evidence of necrosis | CPT/HCPCS: 82962; G0277 ==

== ENCOUNTER 2020-12-06 08:13 | Outpatient (CLI) | payer MEDICAID, SELFPAY | END 2020-12-06 08:14 | disposition home or self-care (01) | LOC: WOUND 08:14 | PROVIDERS: PCP Family Medicine; Visit Provider Thoracic Surgery (Cardiothoracic Vascular Surgery) | DX: E11.621 Type 2 diabetes mellitus with foot ulcer (principal); L97.426 Non-pressure chronic ulcer of left heel and midfoot with bone involvement without evidence of necrosis; F17.210 Nicotine dependence, cigarettes, uncomplicated | CPT/HCPCS: 11042; 82962; 99212; G0277 ==

== ENCOUNTER 2020-12-07 08:15 | Outpatient (CLI) | payer MEDICAID, SELFPAY | END 2020-12-07 08:16 | disposition home or self-care (01) | LOC: WOUND 08:16 | PROVIDERS: PCP Family Medicine; Visit Provider Emergency Medicine | DX: E11.621 Type 2 diabetes mellitus with foot ulcer (principal); L97.426 Non-pressure chronic ulcer of left heel and midfoot with bone involvement without evidence of necrosis; F17.210 Nicotine dependence, cigarettes, uncomplicated | CPT/HCPCS: 82962; G0463 ==

== ENCOUNTER 2020-12-08 10:55 | Outpatient (CLI) | payer MEDICAID, SELFPAY | END 2020-12-08 10:56 | disposition home or self-care (01) | LOC: WOUND 10:56 | PROVIDERS: PCP Family Medicine; Visit Provider Emergency Medicine | DX: Z11.52 Encounter for screening for COVID-19 (principal); Z20.822 Contact with and (suspected) exposure to COVID-19; Z01.812 Encounter for preprocedural laboratory examination; E11.621 Type 2 diabetes mellitus with foot ulcer; L97.429 Non-pressure chronic ulcer of left heel and midfoot with unspecified severity; M86.172 Other acute osteomyelitis, left ankle and foot | CPT/HCPCS: 87635; 99212; G0277; G0463 ==

== ENCOUNTER 2020-12-12 08:00 | Outpatient (CLI) | payer MEDICAID, SELFPAY | END 2020-12-12 08:01 | disposition home or self-care (01) | LOC: WOUND 12-26 14:44 | PROVIDERS: PCP Family Medicine; Visit Provider Emergency Medicine | DX: E11.621 Type 2 diabetes mellitus with foot ulcer (principal); L97.426 Non-pressure chronic ulcer of left heel and midfoot with bone involvement without evidence of necrosis; F17.210 Nicotine dependence, cigarettes, uncomplicated | CPT/HCPCS: G0277; G0463 ==

== ENCOUNTER 2020-12-13 07:46 | Outpatient (CLI) | payer MEDICAID, SELFPAY | END 2020-12-13 07:47 | disposition home or self-care (01) | LOC: WOUND 07:47 | PROVIDERS: PCP Family Medicine; Visit Provider Thoracic Surgery (Cardiothoracic Vascular Surgery) | DX: E11.621 Type 2 diabetes mellitus with foot ulcer (principal); L97.426 Non-pressure chronic ulcer of left heel and midfoot with bone involvement without evidence of necrosis; F17.210 Nicotine dependence, cigarettes, uncomplicated | CPT/HCPCS: 11042; G0277 ==

== ENCOUNTER 2020-12-13 13:03 | Outpatient (CLI) | payer MEDICAID, SELFPAY ==
[2020-12-13 15:26] LABS: Basophils # 0.1 10^3/uL (0.0-0.1); Basophils % 0.9 %; Eosinophils # 0.6 10^3/uL (0.0-0.8); Eosinophils % 4.1 %; Hematocrit 43.8 % (42.0-52.0); Hemoglobin 13.9 g/dL (11.7-16.6); Lymphocytes # 2.3 10^3/uL (0.8-4.8); Lymphocytes % 16.2 %; Mean Corpuscular HGB Conc 31.7 g/dL (30.0-36.0); Mean Corpuscular Hemoglobin 29.6 pg (28.0-34.0); Mean Corpuscular Volume 93.2 fl (80-94); Mean Platelet Volume 11.1 fL (7.4-10.4); Monocytes # 1.4 10^3/uL (0.2-0.9); Monocytes % 9.6 %; Neutrophils # 9.66 10^3/uL (1.8-7.7); Neutrophils % 68.4 %; Nucleated Red Blood Cells % 0 %; Platelet Count 327 10^3/cmm (130-400); Red Cell Distribution Width 13.6 % (12.1-15.1); White Blood Count 14.1 10^3/uL (4.0-10.0)
[2020-12-13 15:32] LABS: Alanine Aminotransferase 15 U/L (0-41); Albumin Level 3.6 g/dL (3.5-5.2); Alkaline Phosphatase 55 IU/L (40-130); Anion Gap 17.2 (5-19); Aspartate Amino Transferase 21 U/L (0-40); Blood Urea Nitrogen 25 mg/dL (8-23); Calcium 9.2 mg/dL (8.5-10.5); Carbon Dioxide 26 mmol/L (22-29); Chloride 98 mmol/L (98-107); Globulin 3.3 g/dL (1.3-4.6); Glomerular Filtration Rate 68.1 mL/min (90-130); Glucose 236 mg/dL (65-115); Osmolality Calculated 294 mOsm/kg (285-295); Potassium 5.2 mmol/L (3.5-5.1); Sodium 136 mmol/L (136-145); Total Bilirubin 0.2 mg/dL (0.15-1.2); Total Protein 6.9 g/dL (6.6-8.7)
[2020-12-13 15:42] LABS: Prealbumin 20.9 mg/dL (20-40)
== END 2020-12-13 13:04 | disposition home or self-care (01) ==
PROVIDERS: PCP Family Medicine; Visit Provider Thoracic Surgery (Cardiothoracic Vascular Surgery)
DX: T87.44 Infection of amputation stump, left lower extremity (principal)
CPT/HCPCS: 80053; 82962; 84134; 85025

== ENCOUNTER 2020-12-14 08:50 | Day surgery (SDC) | payer MEDICAID, SELFPAY ==
[2020-12-13 16:06] VITALS: BMI 28.8
[2020-12-14] VITALS (8 sets, daily range): BP systolic 112–139; BP diastolic 7–77; PULSE 78–89; RESP 13–17; TEMP 36.2–36.6; O2SAT 81–98
[2020-12-14 10:41] LABS: Glucose Point of Care 193 mg/dL (70-110)
[2020-12-14] MEDS: sodium chloride 0.9% 1,000 ML 30 ML IV (10:48)
--- NOTE | 2020-12-14 11:45 | ANES.PREANE2 ---
Pre-Anesthetic Assessment Pre-Anesthetic Assessment: Height/Weight: Height 1.75 m Weight 88.451 kg Temp Pulse Resp BP Pulse Ox 97.2 F L 89 15 126/72 98 12/14/20 10:34 12/14/20 10:34 12/14/20 10:34 12/14/20 10:34 12/14/20 10:34 Preop Diagnosis: Left foot wound Proposed Procedure: Operation Date: 12/14/20 12:30 Proposed Procedures p Incision And Drainage and debriment with wound vac placement left foot(Left) - Marquis Tabares MD Familial anesthetic complications: None Was Beta Sylvie taken within 24 hours: N/A Was Clonidine taken within 24 hours: N/A Last intake: Intake Last Liquid Date 12/14/20 Last Liquid Time 08:30 Last Solid Date 12/13/20 Last Solid Time 17:00 Social: Social History: Tobacco and No alcohol Exam: Pre-Anes Outpt Exam: alert, oriented x 3, clear to auscultation bilaterally and regular rate & rhythm Airway: MP: 3 Dentition: Chipped CV/HEM: CV/HEM: HTN Comments: 2018 echo CONCLUSIONS Normal left ventricular size and systolic function, EF 58% . Mild left ventricular hypertrophy. No regional wall motion abnormalities. Grade I/IV diastolic dysfunction (abnormal relaxation filling pattern), normal to mildly elevated filling pressures. Thickened aortic valve. No significant stenotic or regurgitant lesions. There is no pericardial effusion. There are no intracardiac masses. No previous study is available for comparison. Metabolic: Metabolic: DM and Hyperlipidemia Anesthetic Plan: ASA status: 3 Anesthesia: General Risk of > 500 ml blood loss (7ml/kg in children): No Meds/Allergies Current Medications: Current Medications Generic Name Dose Route Start Last Admin Trade Name Freq PRN Reason Stop Dose Admin Sodium Chloride 1,000 mls @ 30 ml s/hr 12/14/20 10:15 12/14/20 10:48 Sodium Chloride 0.9% IV 12/15/20 10:14 30 mls/hr .Q24H BRIANA Administration PFSH Anesthesia PFSH: Medical History Controlled type 2 diabetes mellitus, with long-term current use of insulin Dry gangrene Dyslipidemia Essential hypertension HTN (hypertension), benign Hypotestosteronemia in male Low back pain radiating down leg Major depressive disorder Surgical History History of amputation of toe Right second and left second and third History of eye surgery History of total left hip arthroplasty Status post vasectomy Family History Other CAD (coronary artery disease) Cancer Diabetes Hypertension Social History Alcohol intake: former Data Anesthesia Other Labs: Laboratory Results - last 48 hr 12/14/20 10:38 POC Glucose 193 H Cardiac Studies: No Data to Display
[2020-12-14] MEDS: vancomycin 1,500 MG/300 ML PIGGYBACK 200 MG IV (12:06)
--- NOTE | 2020-12-14 12:14 | W.PM.OPSUD ---
Surgery/Procedure H&P Update DATE OF PROCEDURE: December 14, 2020 DATE H&P PERFORMED: 12/06/20 H&P UPDATE INFORMATION: I have reviewed H&P completed within last 30 days, I have examined patient prior to procedure and No changes to prior documentation PREOP DIAGNOSIS: Left foot wound PRIMARY INDICATION FOR PROCEDURE: Nonhealing left foot wound PLANNED PROCEDURE: Operation Date: 12/14/20 12:30 Proposed Procedures p Incision And Drainage and debriment with wound vac placement left foot(Left) - Marquis Tabares MD
[2020-12-14] MEDS: ceFAZolin 1,000 mg SDV 1000 MG IRRIGATION (13:12)
--- NOTE | 2020-12-14 13:39 | P.OP_ITS ---
Operative Report Date of procedure: December 14, 2020 Pre-op Diagnosis: Left foot wound Post-op diagnosis: same Procedure Done: Incision, drainage, and debridement of chronic left foot wound and placement of wound VAC Wound measurements prior to wound VAC placement: 5.5 cm in length, 1 cm in width, 2 cm in depth. Pathology: none sent Surgeon: Marquis Tabares Anesthesia: General Estimated blood loss (mL): 20 Complications: None Findings: There appear to be some old surgical packing in the wound bed. This was cleared. Condition: stable Disposition: same day Brief History: 60-year-old gentleman with prior podiatric surgery to the left foot with a chronic wound which is failed to heal. Due to the small plantar opening, I recommended opening the area widely to allow for appropriate inspection, debridement, and placement of wound VAC. Details the risk of procedure were carefully reviewed. Appropriate consents have been reviewed and signed. Procedure: Mr. Ballard was taken operating room theater kept in position on the OR table where he underwent anesthesia. Entire left foot and lower leg was steri segundo prepped and draped. A small hemostat was placed through the plantar opening and extends to the dorsum of the foot at the area of prior fourth toe amputation. This area was opened widely utilizing a #10 scalpel blade. Upon inspection with exposure to a wheat Brazos retractor, old packing material was noted and removed. Devitalized tissue was sharply removed with Metzenbaum scissors as well as some devitalized fascia. There was no exposed bone. Wound was irrigated with large amounts of antibiotic solution. Final wound measurements prior to wound VAC placement are 5-1/2 cm in length by 1 cm in width by 2 cm in depth. Wound VAC will be replaced today. He will be discharged home. He will follow-up in wound care services tomorrow to continue HBO therapy for osteomyelitis. He will be scheduled for wound VAC dressing changes twice a week in conjunction with home health services. He was awakened from anesthesia with stable vital signs and transferred to the outpatient surgery department.
--- NOTE | 2020-12-14 13:40 | P.PCN_ITS ---
PACU note PACU note: VSS, Good respiratory effort, report to [facility] ROOM ATTENDANT Post-Anesthesia Exam: awake
--- NOTE | 2020-12-14 13:40 | PM.PACU ---
PACU note PACU note: VSS, Good respiratory effort, report to BOOM BOSS Post-Anesthesia Exam: awake
[2020-12-14] MEDS: HYDROcodone-acetaminophen 5-325 mg Tablet 1 TAB PO (14:24)
--- NOTE | 2020-12-14 15:16 | ANE.PACU2 ---
Inpatient post-anesthesia follow up: Airway intact: Yes Vital signs: Temperature 97.9 F Pulse Rate 87 Respiratory Rate 16 Blood Pressure 121/70 Pulse Oximetry 96 Oxygen Delivery Me thod Room Air Oxygen Flow Rate Fraction of Inspir ed Oxygen Hydration adequate: Yes Nausea and vomiting: No Pain level: 2 Mental status: Baseline
== END 2020-12-14 15:00 | disposition home or self-care (01) ==
PROVIDERS: PCP Family Medicine; Visit Provider Thoracic Surgery (Cardiothoracic Vascular Surgery)
PROC: (CPT 11043; principal; 2020-12-14 12:30)
DX: S91.302A Unspecified open wound, left foot, initial encounter (principal); X58.XXXA Exposure to other specified factors, initial encounter; I10 Essential (primary) hypertension; E11.9 Type 2 diabetes mellitus without complications; E78.5 Hyperlipidemia, unspecified; Z79.4 Long term (current) use of insulin; F32.9 Major depressive disorder, single episode, unspecified; Z82.49 Family history of ischemic heart disease and other diseases of the circulatory system; Z83.3 Family history of diabetes mellitus
CPT/HCPCS: 11043; 36416; 82962; 96365; J0690; J2704; J3010; J3370; J7030

== ENCOUNTER 2020-12-15 07:59 | Outpatient (CLI) | payer MEDICAID, SELFPAY | END 2020-12-15 08:00 | disposition home or self-care (01) | LOC: WOUND 08:00 | PROVIDERS: PCP Family Medicine; Visit Provider Surgery | DX: E11.621 Type 2 diabetes mellitus with foot ulcer (principal); L97.426 Non-pressure chronic ulcer of left heel and midfoot with bone involvement without evidence of necrosis; F17.210 Nicotine dependence, cigarettes, uncomplicated | CPT/HCPCS: 82962; G0277 ==

== ENCOUNTER 2020-12-18 07:59 | Outpatient (CLI) | payer MEDICAID, SELFPAY | END 2020-12-18 08:00 | disposition home or self-care (01) | LOC: WOUND 08:00 | PROVIDERS: PCP Family Medicine; Visit Provider Emergency Medicine | DX: E11.621 Type 2 diabetes mellitus with foot ulcer (principal); L97.426 Non-pressure chronic ulcer of left heel and midfoot with bone involvement without evidence of necrosis; F17.210 Nicotine dependence, cigarettes, uncomplicated | CPT/HCPCS: 82962; G0277 ==

== ENCOUNTER 2020-12-19 08:13 | Outpatient (CLI) | payer MEDICAID, SELFPAY | END 2020-12-19 08:14 | disposition home or self-care (01) | LOC: WOUND 08:14 | PROVIDERS: PCP Family Medicine; Visit Provider Thoracic Surgery (Cardiothoracic Vascular Surgery) | DX: E11.621 Type 2 diabetes mellitus with foot ulcer (principal); L97.422 Non-pressure chronic ulcer of left heel and midfoot with fat layer exposed; F17.210 Nicotine dependence, cigarettes, uncomplicated; M86.172 Other acute osteomyelitis, left ankle and foot; Z79.4 Long term (current) use of insulin; N18.30 Chronic kidney disease, stage 3 unspecified | CPT/HCPCS: 11042; 80053; 82962; 83036; 85025; 85651; 86140; 97605 ==

== ENCOUNTER 2020-12-20 12:56 | Outpatient (CLI) | payer MEDICAID, SELFPAY | END 2020-12-20 12:57 | disposition home or self-care (01) | LOC: WOUND 12:56 | PROVIDERS: PCP Family Medicine; Visit Provider Thoracic Surgery (Cardiothoracic Vascular Surgery) | DX: E11.621 Type 2 diabetes mellitus with foot ulcer (principal); L97.426 Non-pressure chronic ulcer of left heel and midfoot with bone involvement without evidence of necrosis; F17.210 Nicotine dependence, cigarettes, uncomplicated | CPT/HCPCS: 82962; G0277 ==

== ENCOUNTER 2020-12-21 07:49 | Outpatient (CLI) | payer MEDICAID, SELFPAY | END 2020-12-21 07:50 | disposition home or self-care (01) | LOC: WOUND 07:50 | PROVIDERS: PCP Family Medicine; Visit Provider Emergency Medicine | DX: E11.621 Type 2 diabetes mellitus with foot ulcer (principal); L97.426 Non-pressure chronic ulcer of left heel and midfoot with bone involvement without evidence of necrosis; F17.210 Nicotine dependence, cigarettes, uncomplicated | CPT/HCPCS: 82962; G0277 ==

== ENCOUNTER 2020-12-22 07:57 | Outpatient (CLI) | payer MEDICAID, SELFPAY | END 2020-12-22 07:58 | disposition home or self-care (01) | LOC: WOUND 07:58 | PROVIDERS: PCP Family Medicine; Visit Provider Surgery | DX: E11.621 Type 2 diabetes mellitus with foot ulcer (principal); L97.526 Non-pressure chronic ulcer of other part of left foot with bone involvement without evidence of necrosis; F17.210 Nicotine dependence, cigarettes, uncomplicated | CPT/HCPCS: 82962; G0277 ==

== ENCOUNTER 2020-12-25 08:13 | Outpatient (CLI) | payer MEDICAID, SELFPAY | END 2020-12-25 08:14 | disposition home or self-care (01) | LOC: WOUND 08:13 | PROVIDERS: PCP Family Medicine; Visit Provider Emergency Medicine | DX: E11.621 Type 2 diabetes mellitus with foot ulcer (principal); L97.426 Non-pressure chronic ulcer of left heel and midfoot with bone involvement without evidence of necrosis; F17.210 Nicotine dependence, cigarettes, uncomplicated | CPT/HCPCS: 82962; 99212; G0277 ==

== ENCOUNTER 2020-12-26 07:39 | Outpatient (CLI) | payer MEDICAID, SELFPAY | END 2020-12-26 07:40 | disposition home or self-care (01) | LOC: WOUND 07:40 | PROVIDERS: PCP Family Medicine; Visit Provider Thoracic Surgery (Cardiothoracic Vascular Surgery) | DX: E11.621 Type 2 diabetes mellitus with foot ulcer (principal); L97.426 Non-pressure chronic ulcer of left heel and midfoot with bone involvement without evidence of necrosis; F17.210 Nicotine dependence, cigarettes, uncomplicated | CPT/HCPCS: 11042; 82962; G0277 ==

== ENCOUNTER 2020-12-27 08:20 | Outpatient (CLI) | payer MEDICAID, SELFPAY | END 2020-12-27 08:21 | disposition home or self-care (01) | LOC: WOUND 08:21 | PROVIDERS: PCP Family Medicine; Visit Provider Thoracic Surgery (Cardiothoracic Vascular Surgery) | DX: E11.621 Type 2 diabetes mellitus with foot ulcer (principal); L97.426 Non-pressure chronic ulcer of left heel and midfoot with bone involvement without evidence of necrosis; F17.210 Nicotine dependence, cigarettes, uncomplicated | CPT/HCPCS: 82962; G0277 ==

== ENCOUNTER 2020-12-28 08:07 | Outpatient (CLI) | payer MEDICAID, SELFPAY | END 2020-12-28 08:08 | disposition home or self-care (01) | LOC: WOUND 08:07 | PROVIDERS: PCP Family Medicine; Visit Provider Emergency Medicine | DX: E11.621 Type 2 diabetes mellitus with foot ulcer (principal); L97.426 Non-pressure chronic ulcer of left heel and midfoot with bone involvement without evidence of necrosis; F17.210 Nicotine dependence, cigarettes, uncomplicated | CPT/HCPCS: 82962; G0277 ==

== ENCOUNTER 2020-12-29 07:59 | Outpatient (CLI) | payer MEDICAID, SELFPAY | END 2020-12-29 08:00 | disposition home or self-care (01) | LOC: WOUND 07:59 | PROVIDERS: PCP Family Medicine; Visit Provider Surgery | DX: E11.621 Type 2 diabetes mellitus with foot ulcer (principal); L97.422 Non-pressure chronic ulcer of left heel and midfoot with fat layer exposed; F17.210 Nicotine dependence, cigarettes, uncomplicated | CPT/HCPCS: 82962; G0277 ==

== ENCOUNTER 2021-01-01 07:54 | Outpatient (CLI) | payer MEDICAID, SELFPAY | END 2021-01-01 07:55 | disposition home or self-care (01) | LOC: WOUND 07:54 | PROVIDERS: PCP Family Medicine; Visit Provider Emergency Medicine | DX: E11.621 Type 2 diabetes mellitus with foot ulcer (principal); L97.426 Non-pressure chronic ulcer of left heel and midfoot with bone involvement without evidence of necrosis; F17.210 Nicotine dependence, cigarettes, uncomplicated | CPT/HCPCS: 82962; G0277 ==

== ENCOUNTER 2021-01-02 07:50 | Outpatient (CLI) | payer MEDICAID, SELFPAY | END 2021-01-02 07:51 | disposition home or self-care (01) | LOC: WOUND 07:50 | PROVIDERS: PCP Family Medicine; Visit Provider Thoracic Surgery (Cardiothoracic Vascular Surgery) | DX: E11.621 Type 2 diabetes mellitus with foot ulcer (principal); L97.422 Non-pressure chronic ulcer of left heel and midfoot with fat layer exposed | CPT/HCPCS: 82962; G0277 ==

== ENCOUNTER → 2021-01-03 09:10 | Outpatient (BNVA) | payer MEDICAID, SELFPAY | PROVIDERS: PCP Family Medicine; Referring Provider Family Medicine; Visit Provider Internal Medicine | DX: E11.42 Type 2 diabetes mellitus with diabetic polyneuropathy (principal); E11.65 Type 2 diabetes mellitus with hyperglycemia; M86.172 Other acute osteomyelitis, left ankle and foot; F17.210 Nicotine dependence, cigarettes, uncomplicated; Z79.4 Long term (current) use of insulin | CPT/HCPCS: 99204 ==

== ENCOUNTER 2021-01-03 13:03 | Outpatient (CLI) | payer MEDICAID, SELFPAY | END 2021-01-03 13:04 | disposition home or self-care (01) | LOC: WOUND 13:04 | PROVIDERS: PCP Family Medicine; Visit Provider Thoracic Surgery (Cardiothoracic Vascular Surgery) | DX: E11.621 Type 2 diabetes mellitus with foot ulcer (principal); L97.422 Non-pressure chronic ulcer of left heel and midfoot with fat layer exposed; F17.210 Nicotine dependence, cigarettes, uncomplicated | CPT/HCPCS: 11042; G0277 ==

== ENCOUNTER 2021-01-04 07:44 | Outpatient (CLI) | payer MEDICAID, SELFPAY | END 2021-01-04 07:45 | disposition home or self-care (01) | LOC: WOUND 07:50 | PROVIDERS: PCP Family Medicine; Visit Provider Emergency Medicine | DX: E11.621 Type 2 diabetes mellitus with foot ulcer (principal); L97.422 Non-pressure chronic ulcer of left heel and midfoot with fat layer exposed; F17.210 Nicotine dependence, cigarettes, uncomplicated | CPT/HCPCS: 82962; G0277 ==

== ENCOUNTER 2021-01-05 08:20 | Outpatient (CLI) | payer MEDICAID, SELFPAY | END 2021-01-05 08:21 | disposition home or self-care (01) | LOC: WOUND 08:21 | PROVIDERS: PCP Family Medicine; Visit Provider Nurse Practitioner Family | DX: E11.621 Type 2 diabetes mellitus with foot ulcer (principal); L97.426 Non-pressure chronic ulcer of left heel and midfoot with bone involvement without evidence of necrosis; F17.210 Nicotine dependence, cigarettes, uncomplicated | CPT/HCPCS: 82962; G0277 ==

== ENCOUNTER 2021-01-08 07:54 | Outpatient (CLI) | payer MEDICAID, SELFPAY | END 2021-01-08 07:55 | disposition home or self-care (01) | LOC: WOUND 07:55 | PROVIDERS: PCP Family Medicine; Visit Provider Emergency Medicine | DX: E11.621 Type 2 diabetes mellitus with foot ulcer (principal); L97.426 Non-pressure chronic ulcer of left heel and midfoot with bone involvement without evidence of necrosis; F17.210 Nicotine dependence, cigarettes, uncomplicated | CPT/HCPCS: 82962; G0277 ==

== ENCOUNTER 2021-01-09 07:55 | Outpatient (CLI) | payer MEDICAID, SELFPAY | END 2021-01-09 07:56 | disposition home or self-care (01) | LOC: WOUND 07:56 | PROVIDERS: PCP Family Medicine; Visit Provider Thoracic Surgery (Cardiothoracic Vascular Surgery) | DX: E11.621 Type 2 diabetes mellitus with foot ulcer (principal); L97.422 Non-pressure chronic ulcer of left heel and midfoot with fat layer exposed; F17.210 Nicotine dependence, cigarettes, uncomplicated | CPT/HCPCS: 82962; G0277 ==

== ENCOUNTER 2021-01-10 08:09 | Outpatient (CLI) | payer MEDICAID, SELFPAY | END 2021-01-10 08:10 | disposition home or self-care (01) | LOC: WOUND 08:10 | PROVIDERS: PCP Family Medicine; Visit Provider Thoracic Surgery (Cardiothoracic Vascular Surgery) | DX: E11.621 Type 2 diabetes mellitus with foot ulcer (principal); L97.422 Non-pressure chronic ulcer of left heel and midfoot with fat layer exposed; F17.210 Nicotine dependence, cigarettes, uncomplicated | CPT/HCPCS: 15275; 82962; G0277; Q4187 ==

== ENCOUNTER 2021-01-11 07:49 | Outpatient (CLI) | payer MEDICAID, SELFPAY | END 2021-01-11 07:50 | disposition home or self-care (01) | PROVIDERS: PCP Family Medicine; Visit Provider Nurse Practitioner Family | DX: E11.621 Type 2 diabetes mellitus with foot ulcer (principal); L97.522 Non-pressure chronic ulcer of other part of left foot with fat layer exposed; F17.210 Nicotine dependence, cigarettes, uncomplicated | CPT/HCPCS: 82962; G0277 ==

== ENCOUNTER 2021-01-12 07:56 | Outpatient (CLI) | payer MEDICAID, SELFPAY | END 2021-01-12 07:57 | disposition home or self-care (01) | LOC: WOUND 07:57 | PROVIDERS: PCP Family Medicine; Visit Provider Surgery | DX: E11.621 Type 2 diabetes mellitus with foot ulcer (principal); L97.522 Non-pressure chronic ulcer of other part of left foot with fat layer exposed; F17.210 Nicotine dependence, cigarettes, uncomplicated | CPT/HCPCS: 82962; G0277 ==

== ENCOUNTER 2021-01-15 07:50 | Outpatient (CLI) | payer MEDICAID, SELFPAY | END 2021-01-15 07:51 | disposition home or self-care (01) | LOC: WOUND 07:50 | PROVIDERS: PCP Family Medicine; Visit Provider Emergency Medicine | DX: E11.621 Type 2 diabetes mellitus with foot ulcer (principal); L97.526 Non-pressure chronic ulcer of other part of left foot with bone involvement without evidence of necrosis; F17.210 Nicotine dependence, cigarettes, uncomplicated | CPT/HCPCS: 82962; G0277 ==

== ENCOUNTER 2021-01-16 08:02 | Outpatient (CLI) | payer MEDICAID, SELFPAY | END 2021-01-16 08:03 | disposition home or self-care (01) | LOC: WOUND 08:03 | PROVIDERS: PCP Family Medicine; Visit Provider Thoracic Surgery (Cardiothoracic Vascular Surgery) | DX: E11.621 Type 2 diabetes mellitus with foot ulcer (principal); L97.426 Non-pressure chronic ulcer of left heel and midfoot with bone involvement without evidence of necrosis; F17.210 Nicotine dependence, cigarettes, uncomplicated; M86.172 Other acute osteomyelitis, left ankle and foot | CPT/HCPCS: 82962; 86140; G0277 ==

== ENCOUNTER 2021-01-17 07:48 | Outpatient (CLI) | payer MEDICAID, SELFPAY | END 2021-01-17 07:49 | disposition home or self-care (01) | LOC: WOUND 07:49 | PROVIDERS: PCP Family Medicine; Visit Provider Thoracic Surgery (Cardiothoracic Vascular Surgery) | DX: E11.621 Type 2 diabetes mellitus with foot ulcer (principal); L97.426 Non-pressure chronic ulcer of left heel and midfoot with bone involvement without evidence of necrosis; F17.210 Nicotine dependence, cigarettes, uncomplicated | CPT/HCPCS: 15275; 82962; G0277; Q4187 ==

== ENCOUNTER 2021-01-18 08:06 | Outpatient (CLI) | payer MEDICAID, SELFPAY | END 2021-01-18 08:07 | disposition home or self-care (01) | LOC: WOUND 08:06 | PROVIDERS: PCP Family Medicine; Visit Provider Emergency Medicine | DX: E11.621 Type 2 diabetes mellitus with foot ulcer (principal); L97.426 Non-pressure chronic ulcer of left heel and midfoot with bone involvement without evidence of necrosis; F17.210 Nicotine dependence, cigarettes, uncomplicated | CPT/HCPCS: 82962; G0277 ==

== ENCOUNTER 2021-01-24 07:52 | Outpatient (CLI) | payer MEDICAID, SELFPAY | END 2021-01-24 07:53 | disposition home or self-care (01) | LOC: WOUND 07:54 | PROVIDERS: PCP Family Medicine; Visit Provider Nurse Practitioner Family | DX: E11.621 Type 2 diabetes mellitus with foot ulcer (principal); L97.426 Non-pressure chronic ulcer of left heel and midfoot with bone involvement without evidence of necrosis; F17.210 Nicotine dependence, cigarettes, uncomplicated | CPT/HCPCS: 11042; 82962; G0277 ==

== ENCOUNTER 2021-01-25 08:03 | Outpatient (CLI) | payer MEDICAID, SELFPAY | END 2021-01-25 08:04 | disposition home or self-care (01) | LOC: WOUND 08:03 | PROVIDERS: PCP Family Medicine; Visit Provider Emergency Medicine | DX: E11.621 Type 2 diabetes mellitus with foot ulcer (principal); L97.426 Non-pressure chronic ulcer of left heel and midfoot with bone involvement without evidence of necrosis; F17.210 Nicotine dependence, cigarettes, uncomplicated | CPT/HCPCS: 82962; 90686; G0277 ==

== ENCOUNTER 2021-01-26 07:54 | Outpatient (CLI) | payer MEDICAID, SELFPAY | END 2021-01-26 07:55 | disposition home or self-care (01) | LOC: WOUND 07:54 | PROVIDERS: PCP Family Medicine; Visit Provider Surgery | DX: E11.621 Type 2 diabetes mellitus with foot ulcer (principal); L97.426 Non-pressure chronic ulcer of left heel and midfoot with bone involvement without evidence of necrosis; F17.210 Nicotine dependence, cigarettes, uncomplicated | CPT/HCPCS: 82962; G0277 ==

== ENCOUNTER 2021-01-29 08:05 | Outpatient (CLI) | payer MEDICAID, SELFPAY | END 2021-01-29 08:06 | disposition home or self-care (01) | LOC: WOUND 08:05 | PROVIDERS: PCP Family Medicine; Visit Provider Nurse Practitioner Family | DX: E11.621 Type 2 diabetes mellitus with foot ulcer (principal); L97.426 Non-pressure chronic ulcer of left heel and midfoot with bone involvement without evidence of necrosis; F17.210 Nicotine dependence, cigarettes, uncomplicated | CPT/HCPCS: 82962; G0277 ==

== ENCOUNTER 2021-01-30 07:57 | Outpatient (CLI) | payer MEDICAID, SELFPAY | END 2021-01-30 07:58 | disposition home or self-care (01) | LOC: WOUND 07:58 | PROVIDERS: PCP Family Medicine; Visit Provider Thoracic Surgery (Cardiothoracic Vascular Surgery) | DX: E11.621 Type 2 diabetes mellitus with foot ulcer (principal); L97.426 Non-pressure chronic ulcer of left heel and midfoot with bone involvement without evidence of necrosis; F17.210 Nicotine dependence, cigarettes, uncomplicated | CPT/HCPCS: 82962; G0277 ==

== ENCOUNTER 2021-01-31 07:44 | Outpatient (CLI) | payer MEDICAID, SELFPAY | END 2021-01-31 07:45 | disposition home or self-care (01) | LOC: WOUND 07:46 | PROVIDERS: PCP Family Medicine; Visit Provider Thoracic Surgery (Cardiothoracic Vascular Surgery) | DX: E11.621 Type 2 diabetes mellitus with foot ulcer (principal); L97.426 Non-pressure chronic ulcer of left heel and midfoot with bone involvement without evidence of necrosis; F17.210 Nicotine dependence, cigarettes, uncomplicated | CPT/HCPCS: 82962; 99212; G0277 ==

== ENCOUNTER 2021-02-01 08:03 | Outpatient (CLI) | payer MEDICAID, SELFPAY | END 2021-02-01 08:04 | disposition home or self-care (01) | LOC: WOUND 08:04 | PROVIDERS: PCP Family Medicine; Visit Provider Nurse Practitioner Family | DX: E11.621 Type 2 diabetes mellitus with foot ulcer (principal); L97.426 Non-pressure chronic ulcer of left heel and midfoot with bone involvement without evidence of necrosis; F17.210 Nicotine dependence, cigarettes, uncomplicated | CPT/HCPCS: 82962; G0277 ==

== ENCOUNTER 2021-02-07 13:20 | Outpatient (CLI) | payer MEDICAID, SELFPAY | END 2021-02-07 13:21 | disposition home or self-care (01) | LOC: WOUND 13:20 | PROVIDERS: PCP Family Medicine; Visit Provider Thoracic Surgery (Cardiothoracic Vascular Surgery) | DX: Z09 Encounter for follow-up examination after completed treatment for conditions other than malignant neoplasm (principal); F17.210 Nicotine dependence, cigarettes, uncomplicated | CPT/HCPCS: 99212 ==

== ENCOUNTER 2021-03-15 08:42 | Observation (INO) | payer MEDICAID, SELFPAY ==
[2021-03-15] VITALS (9 sets, daily range): BP systolic 127–145; BP diastolic 72–78; PULSE 70–86; RESP 16–20; TEMP 36.5–37.1; O2SAT 92–98; BMI 29.5
--- NOTE | 2021-03-15 08:50 | XR_ITS ---
WS: [id number] Exam: XR foot LT min 3V* [id number] Date/Time of Exam: 03/15/2021 8:50 AM Reason For Exam: Osteomyelitis Comparison 11/14/2020. There appears to be osseous destruction of the distal end of the fourth metatarsal suspicious for ost eomyelitis. There is associated soft tissue swelling. There has been amputation of the second through the fourth toes. No acute fracture. No other sign of bone destruction. No radiopaque soft tissue for eign bodies are seen. XR/XR foot LT min 3V* [id number] IMPRESSION: 1. Resorption and bone destruction of the distal fourth metatarsal suspicious f or acute osteomyelitis. There is associated soft tissue edema. 2. Status post amputation of the second through the fourth toes. 3. No acute fracture or dislocation.
--- NOTE | 2021-03-15 08:54 | ED_ITS ---
HPI - Wound/Laceration General: Chief Complaint: Extremity Problem,Nontraumatic Stated Complaint: Osteomyelitis L Foot Time Seen by Provider: 03/15/21 08:45 History of Present Illness: HPI narrative: 60-year-old with history of chronic wound infection on his left foot presents due to worsening infection and ulcer on the bottom of the plantar surface. States this been progressing for the last 3 to 4 days. Denies any chest pain shortness of breath fevers or chills. Denies any tracking up the leg. States he only has pain over the area of ulcer. States he is trying to contact wound care which she has gone to before but they state any new referral from a provider within our system. Also states that he attempted to contact his primary care who states that he is not in our system and cannot provide referral. Review of Systems Narrative: - CONSTITUTIONAL: Denies weight loss, fever and chills. - HEENT: Denies changes in vision and hearing. - RESPIRATORY: Denies SOB and cough. - CV: Denies palpitations and CP. - GI: Denies abdominal pain, nausea, vomiting and diarrhea. - : Denies dysuria and urinary frequency. - MSK: As above - SKIN: Denies rash and pruritus. - NEUROLOGICAL: Denies headache, weakness, numbness and syncope. - PSYCHIATRIC: Denies suicidal ideation PFSH ED PFSH: Medical History Controlled type 2 diabetes mellitus, with long-term current use of insulin Dry gangrene Dyslipidemia Essential hypertension HTN (hypertension), benign Hypotestosteronemia in male Low back pain radiating down leg Major depressive disorder Surgical History History of amputation of toe Right second and left second and third History of eye surgery History of incision and drainage left foot History of total left hip arthroplasty Status post vasectomy Family History Father CAD (coronary artery disease) Diabetes Mother Cancer Chronic kidney disease (CKD) Diabetes Lung disease Grandmother Dementia Stroke Family/Other Suicide Other Hypertension Denies family history of Clotting disorder Anesthesia complication Bleeding disorder Social History Smoking and tobacco status: current every day smoker cigarettes Packs smoked per day: 1 Alcohol intake: former Physical Exam Narrative: EXAM NARRATIVE: - GENERAL: Alert and oriented x 3. No acute distress. Well-nourished. - EYES: EOMI. Anicteric. - HENT: Atraumatic, no C-spine tenderness. Moist mucous membranes. No scleral icterus. No cervical lymphadenopathy. - LUNGS: Clear to auscultation bilaterally. No accessory muscle use. Equal lung sounds bilaterally. No respiratory distress. - CARDIOVASCULAR: Regular rate and rhythm. No murmur. No JVD. - ABDOMEN: Soft, non-tender and non-distended. Negative CVA tenderness bilaterally, no rebound or guarding, negative Butler sign. No palpable masses. - EXTREMITIES: Amputation of the second third and fourth toes on the left foot. There is a small 1 x 1 cm ulcer on the plantar surface of the foot with mild tenderness but no discharge purulence crepitus or erythema. No tenderness of the calf ankle or knee. No edema. No other sign of focal injury. - SKIN: No rashes or lesions. Warm. - NEUROLOGIC: No meningismus or focal neurological deficits. CN II-XII grossly intact. - PSYCHIATRIC: Cooperative. Appropriate mood and affect. Course Vital Signs: Vital signs: Vital Signs Temperature 98.7 F 03/15/21 09:53 Pulse Rate 83 03/15/21 10:36 Respiratory Rate 17 03/15/21 10:36 Blood Pressure 133/78 03/15/21 10:36 Pulse Oximetry 92 03/15/21 10:36 MDM - Wound/Laceration MDM Narrative: Medical decision making narrative: 60-year-old male presents due to foot pain. Does have history of chronic wound in this area that recently has been closed but also is open back up. His white count elevation is seen. Sepsis order set initiated. In addition patient is hyperkalemic to 5.9 but EKG does not reveal any acute EKG changes. We will hold off on insulin calcium at this time. Dose of Kayexalate provided. Renal function is within normal. Wound care consulted. Remainder of lab work and imaging reviewed. Discussed with hospitalist and they agreed patient would benefit from admission. Patient admitted in stable condition. Further evaluation management per hospitalist team. Lab Data: Labs: Lab Results 03/15/21 03/15/21 03/15/21 09:45 09:45 09:45 WBC 17.2 10^3/uL H 10 ^3/uL (4.0-10.0) RBC 4.61 10^6/uL 10^6 /uL (4.1-5.3) Hgb 14.4 g/dL g/dL (11.7-16.6) Hct 42.6 % % (42.0-52.0) MCV 92.4 fl fl (80-94) MCH 31.2 pg pg (28.0-34.0) MCHC 33.8 g/dL g/dL (30.0-36.0) RDW 12.5 % % (12.1-15.1) Plt Count 305 10^3/cmm 10^3 /cmm (130-400) MPV 11.2 fL H fL (7.4-10.4) Neut % (Auto) 77.6 % % Lymph % (Auto) 10.1 % % [place] % (Auto) 10.3 % % Eos % (Auto) 0.9 % % Baso % (Auto) 0.6 % % Neut # (Auto) 13.36 10^3/uL H 1 0^3/uL (1.8-7.7) Lymph # (Auto) 1.7 10^3/uL 10^3/ uL (0.8-4.8) [place] # (Auto) 1.8 10^3/uL H 10^ 3/uL (0.2-0.9) Eos # (Auto) 0.2 10^3/uL 10^3/ uL (0.0-0.8) Baso # (Auto) 0.1 10^3/uL 10^3/ uL (0.0-0.1) Nucleated RBC % (a uto) 0 % % Nucleated RBCs # 0.0 /100WBC /100W BC Sodium 135 mmol/L L mmol /L (136-145) Potassium 5.9 mmol/L H mmol /L (3.5-5.1) Chloride 100 mmol/L mmol/L (98-107) Carbon Dioxide 26 mmol/L mmol/L (22-29) Anion Gap 14.9 (5-19) BUN 17 mg/dL mg/dL (8-23) Creatinine 1.2 mg/dL mg/dL (0.7-1.2) GFR Calculation 61.6 mL/min L mL/ min (90-130) Glucose 312 mg/dL H mg/dL (65-115) Calculated Osmolal ity 293 mOsm/kg mOsm/ kg (285-295) Lactate 0.9 mmol/L mmol/L (0.5-2.2) Calcium 9.0 mg/dL mg/dL (8.5-10.5) Total Bilirubin 0.2 mg/dL mg/dL (0.15-1.2) AST 20 U/L U/L (0-40) ALT 20 U/L U/L (0-41) Alkaline Phosphata se 76 IU/L IU/L (40-130) Total Protein 7.0 g/dL g/dL (6.6-8.7) Albumin 3.8 g/dL g/dL (3.5-5.2) Globulin 3.2 g/dL g/dL (1.3-4.6) EKG Data^: EKG 1: Other EKG comments: Normal sinus rhythm, rate of 82, no peak T waves or hyperkalemic change. No sign of acute ischemia or other acute abnormality. Discharge Plan Discharge Prescriptions: No Action lisinopril 5 mg tablet 5 mg PO QAM RF: 0 (DME) OneTouch Verio test strips Strip See Rx Instructions .Route Qty: 100 RF: 11 Tresiba FlexTouch U-100 100 unit/mL (3 mL) insulin pen 32 unit SUBCUT DAILY RF: 0 metoprolol tartrate 25 mg tablet 25 mg PO BID Qty: 180 RF: 3 methocarbamol 500 mg tablet 500 mg PO BID PRN (Reason: pain) Qty: 60 RF: 2 Victoza 3-John 0.6 mg/0.1 mL (18 mg/3 mL) pen injector See Rx Instructions .ROUTE .COMPLEX Qty: 9 RF: 0 multivitamin Tablet 1 tab PO DAILY RF: 0 beta carotene 25,000 unit Capsule 25,000 unit PO DAILY RF: 0 cholecalciferol (vitamin D3) [Vitamin D3] 25 mcg (1,000 unit) Capsule 25 mcg PO DAILY RF: 0 omega 3-vfi-awc-fish oil [Fish Oil] 1,000 mg (120 mg-180 mg) Capsule 1 cap PO BID RF: 0 acetaminophen [Tylenol Extra Strength] 500 mg Tablet 500 mg PO TID PRN (Reason: Pain) Qty: 0 RF: 0 insulin aspart U-100 [Novolog Flexpen U-100 Insulin] 100 unit/mL (3 mL) i nsulin pen See Rx Instructions .ROUTE .COMPLEX RF: 0 cyanocobalamin (vitamin B-12) [Vitamin B-12] 100 mcg Tablet 100 mcg PO DAILY RF: 0 coenzyme Q10 [CoQ-10] 100 mg Capsule 200 mg PO DAILY RF: 0 melatonin 5 mg Tablet 5 mg PO DAILY RF: 0 ascorbic acid (vitamin C) [Vitamin C] 1,000 mg Tablet 1 g PO DAILY RF: 0 zinc 50 mg Capsule 50 mg PO DAILY RF: 0 atorvastatin 40 mg tablet 40 mg PO BEDTIME RF: 0 gabapentin 400 mg capsule 400 mg PO BID RF: 0 duloxetine 60 mg capsule,delayed release(DR/EC) 60 mg PO BID RF: 0 fenofibrate nanocrystallized 145 mg tablet 145 mg PO BEDTIME RF: 0 aspirin 325 mg Tablet 325 mg PO QAM RF: 0 metformin 1,000 mg tablet 1,000 mg PO BID RF: 0 Coding Level of Care Code 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
[2021-03-15] MEDS: clindamycin 900 MG/50 ML PREMIX 100 MG IV (10:01)
[2021-03-15 10:02] LABS: Basophils # 0.1 10^3/uL (0.0-0.1); Basophils % 0.6 %; Eosinophils # 0.2 10^3/uL (0.0-0.8); Eosinophils % 0.9 %; Hematocrit 42.6 % (42.0-52.0); Hemoglobin 14.4 g/dL (11.7-16.6); Lymphocytes # 1.7 10^3/uL (0.8-4.8); Lymphocytes % 10.1 %; Mean Corpuscular HGB Conc 33.8 g/dL (30.0-36.0); Mean Corpuscular Hemoglobin 31.2 pg (28.0-34.0); Mean Corpuscular Volume 92.4 fl (80-94); Mean Platelet Volume 11.2 fL (7.4-10.4); Monocytes # 1.8 10^3/uL (0.2-0.9); Monocytes % 10.3 %; Neutrophils # 13.36 10^3/uL (1.8-7.7); Neutrophils % 77.6 %; Nucleated Red Blood Cells % 0 %; Platelet Count 305 10^3/cmm (130-400); Red Blood Count 4.61 10^6/uL (4.1-5.3); Red Cell Distribution Width 12.5 % (12.1-15.1); White Blood Count 17.2 10^3/uL (4.0-10.0)
[2021-03-15] MEDS: sodium chloride 0.9% 500 ML IV (10:02)
[2021-03-15 10:23] LABS: Alanine Aminotransferase 20 U/L (0-41); Albumin Level 3.8 g/dL (3.5-5.2); Alkaline Phosphatase 76 IU/L (40-130); Anion Gap 14.9 (5-19); Aspartate Amino Transferase 20 U/L (0-40); Blood Urea Nitrogen 17 mg/dL (8-23); Carbon Dioxide 26 mmol/L (22-29); Chloride 100 mmol/L (98-107); Globulin 3.2 g/dL (1.3-4.6); Glomerular Filtration Rate 61.6 mL/min (90-130); Glucose 312 mg/dL (65-115); Osmolality Calculated 293 mOsm/kg (285-295); Potassium 5.9 mmol/L (3.5-5.1); Sodium 135 mmol/L (136-145); Total Bilirubin 0.2 mg/dL (0.15-1.2)
[2021-03-15 10:24] LABS: Lactate (Lactic Acid level) 0.9 mmol/L (0.5-2.2)
--- NOTE | 2021-03-15 10:26 | ECG_ITS ---
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 Measurements Intervals [place] Rate: 82 P: 42 ID: 159 QRS: 25 QRSD: 98 T: 58 QT: 347 QTc: 408 Interpretive Statements SINUS RHYTHM Compared to ECG 11/24/2020 12:01:24 No significant changes Electronically Signed On 03-17-2021 7:41:20 AGILE BUSINESS ANALYST by John Toro M.D. [email or web address]
[2021-03-15] MEDS: piperacillin-tazobactam 3.375 GM in sodium chloride 0.9% (plus) 50 ML IV (10:37)
[2021-03-15] MEDS: vancomycin 1,500 MG/300 ML PIGGYBACK 200 MG IV (11:06)
--- NOTE | 2021-03-15 11:14 | PC.PHAR ---
pt states he takes care if his own medications-pt states he hasnt gotten a depo testosterone shot since dec 2020 last filled 11/16/20-notes are made in the pharmacy comments
--- NOTE | 2021-03-15 11:23 | USCV_ITS ---
Marquis Ballard Age: 60 Gender: M : 1960 Exam Date: 03/15/2021 12:14 Ordering Phys: Armen Gaston MD Technologist: Exam Location: [facility] – [place] Indication: LT LEG PAIN AND SWELLING HISTORY: Lower extremity swelling. PROCEDURES: Venous duplex imaging was performed in only the left lower extremity. The following venous structures were evaluated: common femoral vein, profunda vein, proximal portion of the greater saphenous vein, superficial femoral vein, and the popliteal vein. In addition, the posterior tibial and peroneal trunk were evaluated. FINDINGS: Normal 2-D Doppler and augmentation and compressibility throughout the lower extremity venous structures. Additional imaging through the proximal calf veins also reveals no thrombus. Limited evaluation of the greater saphenous vein is patent with no thrombus. CONCLUSIONS No DVT left lower extremity. Dr. Bebe Alves DO (Electronically Signed) Final Date: 15 March 2021 13:08 S
[2021-03-15] MEDS: sodium polystyrene sulfonate 15 gm/60 mL Btl PO (12:05)
--- NOTE | 2021-03-15 13:04 | PM.HP ---
Providers/Chief Complaint Primary Care Provider: Juany Guajardo DO Chief Complaint: Osteomyelitis L Foot History of Present Illness Marquis Ballard is a 60 year old male who presents with ulcer on his left lateral foot, plantar surface which has recurred. He has a history of chronic osteomyelitis in this area. He has some lower extremity swelling and pain. He denies any fever. He reports he has been followed at wound care in the past. No drainage from that area. It is difficult to bear weight. He received vancomycin, Zosyn, and clindamycin in the emergency department. Review of Systems General: Reports: 10 or more systems reviewed and unremarkable except in HPI and below Const: Denies: fever(s) or chills Eyes: Denies: change in vision ENMT: Denies: throat pain Card: Denies: chest pain Resp: Denies: dyspnea GI: Denies: abdominal pain : Denies: flank pain Musc: Reports: extremity pain and extremity swelling Skin/Breast: Denies: rash Neuro: Denies: headache(s) Psych: Denies: anxiety or depression Endo: Denies: polyuria Ernesto/Lymph: Denies: easy bruising All/Imm: Denies: urticaria Medications/Allergies Home Medications Medication Instructions Recorded Confirmed Last Taken Type lisinopril 5 mg tablet 5 mg PO QAM 06/25/19 03/15/21 03/15/21 06:00 History beta carotene 25,000 unit PO DAILY 10/06/19 03/15/21 12/13/20 History cholecalciferol (vitamin D3) 25 mcg PO DAILY 10/06/19 03/15/21 12/13/20 History [Vitamin D3] multivitamin 1 tab PO DAILY 10/06/19 03/15/21 12/13/20 History omega 8-oep-uat-fish oil [Fish Oil] 1 cap PO BID 10/06/19 03/15/21 12/13/20 History acetaminophen [Tylenol Extra 500 mg PO TID PRN #0 tab 10/27/19 03/15/21 12/13/20 Rx Strength] blood sugar diagnostic #100 ea 10/10/20 03/15/21 Unknown Rx coenzyme Q10 [CoQ-10] 200 mg PO DAILY 11/14/20 03/15/21 12/13/20 History cyanocobalamin (vitamin B-12) 100 mcg PO DAILY 11/14/20 03/15/21 12/13/20 History [Vitamin B-12] insulin aspart U-100 [Novolog See Rx Instructions .ROUTE .COMPLEX 11/14/20 03/15/21 12/13/20 History Flexpen U-100 Insulin] ascorbic acid (vitamin C) [Vitamin 1 g PO DAILY 12/13/20 03/15/21 12/13/20 History C] insulin degludec 100 unit/mL (3 32 unit SUBCUT QAM ml 01/22/21 03/15/21 Unknown History mL) subcutaneous pen metoprolol tartrate 25 mg tablet 25 mg PO BID #180 tab 01/22/21 03/15/21 03/15/21 06:00 Rx methocarbamol 500 mg tablet 500 mg PO BID PRN #60 tab 03/08/21 03/15/21 Unknown Rx aspirin 325 mg PO QAM 03/15/21 03/15/21 03/15/21 06:00 History atorvastatin 40 mg PO BEDTIME 03/15/21 03/15/21 03/14/21 History duloxetine 60 mg PO BID 03/15/21 03/15/21 03/15/21 06:00 History fenofibrate nanocrystallized 145 mg PO BEDTIME 03/15/21 03/15/21 03/14/21 History gabapentin 400 mg PO BID 03/15/21 03/15/21 03/15/21 History liraglutide [Victoza 3-John] 1.8 mg SUBCUT QAM 03/15/21 03/15/21 03/14/21 History metformin 1,000 mg PO BID 03/15/21 03/15/21 03/15/21 06:00 History zinc 50 mg PO BID 03/15/21 03/15/21 03/15/21 06:00 History Allergies Allergy/AdvReac Type Severity Reaction Status Date / Time oseltamivir [From Tamiflu] Allergy ADR-Nausea Verified 03/15/21 08:51 triethanolamine Allergy ALGY-Rash Verified 03/15/21 08:51 [From Cerumenex] NSAIDS (Non-Steroidal AdvReac Mild Unknown Verified 03/15/21 08:51 Anti-Inflamma PFSH Acute PFSH: Medical History (Updated 03/15/21 @ 13:16 by Armen Gaston MD) Controlled type 2 diabetes mellitus, with long-term current use of insulin Dry gangrene Dyslipidemia Essential hypertension HTN (hypertension), benign Hypotestosteronemia in male Low back pain radiating down leg Major depressive disorder Tobacco dependency Surgical History History of amputation of toe Right second and left second and third History of eye surgery History of incision and drainage left foot History of total left hip arthroplasty Status post vasectomy Family History Father CAD (coronary artery disease) Diabetes Mother Cancer Chronic kidney disease (CKD) Diabetes Lung disease Grandmother Dementia Stroke Family/Other Suicide Other Hypertension Denies family history of Clotting disorder Anesthesia complication Bleeding disorder Social History Smoking and tobacco status: current every day smoker cigarettes Packs smoked per day: 1 Alcohol intake: former Vitals/I&O/Wt Last Vital Signs Temp 98.7 F 03/15/21 09:53 Pulse 83 03/15/21 10:36 Resp 17 03/15/21 10:36 BP 133/78 03/15/21 10:36 Pulse Ox 92 03/15/21 10:36 03/14/21 03/15/21 03/15/21 22:59 06:59 14:59 Intake Total 600 / 600 Balance 600 / 600 Weight last 48 hrs Weight 90.718 kg Physical Exam Narrative: EXAM NARRATIVE: General exam is a white male, no distress HEENT: Pupils equally round. Oropharynx clear. Neck is supple no lymphadenopathy or thyromegaly Cardiovascular regular rate and rhythm without murmur Lungs clear but with diminished breath sounds at the bases Abdomen is soft nontender with positive bowel sounds Extremities no cyanosis clubbing. Left lower extremity with some edema. Mild erythema overlying the shearer. Plantar surface, fourth distal metatarsal with diabetic foot ulcer with somewhat dark eschar. No smell or significant drainage. Previous partial amputation noted Skin see above Neuro no focal deficits Data : 03/15/21 09:45 03/15/21 09:45 Micro: Microbiology 03/15/21 10:20 Blood Culture - Preliminary Blood SPECIMEN COLLECTED 03/15/21 09:45 Blood Culture - Preliminary Blood SPECIMEN COLLECTED Other data: LFTs are normal Foot x-ray demonstrating resorption bone destruction of the distal fourth metatarsal head A&P Assessment and plan (1) Osteomyelitis of left foot: Currently has diabetic foot ulcer, nondraining. Overlying the skin, there is mild acute cellulitis with associated soft tissue edema. We will obtain a CT of the foot to make sure no abscess is present Initiate vancomycin and Zosyn If no abscess is present, clinical improvement occurs overnight, could consider outpatient treatment with oral antibiotics and close follow-up in wound care as well as infectious disease clinic. Secondary to lower extremity edema obtain venous duplex. Note that he has had an arterial duplex in the past, September 2020 that demonstrated no flow-limiting abnormalities. Check ESR and CRP Note that blood cultures were done. Status: Acute Qualifiers: Osteomyelitis type: other acute Qualified Code(s): M86.172 - Other acute osteomyelitis, left ankle and foot (2) Leukocytosis: Likely secondary to osteomyelitis, cellulitis Status: Acute (3) Hyperkalemia: Etiology uncertain. Received Kayexalate in the emergency department. Hold lisinopril. Low potassium diet. Status: Acute (4) Uncontrolled type 2 diabetes mellitus: Continue long-acting insulin. Add sliding scale Status: Acute Qualifiers: Coma presence: unspecified whether coma present (5) Tobacco dependency: Encourage avoidance of tobacco Status: Acute Additional A&P Information Full code Lovenox for DVT prophylaxis Attestations Medical Necessity Statement*: Will require less than 2 midnight stay for treatment of cellulitis, osteomyelitis, hyperkalemia as long as no other concerns are identified on imaging. 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
--- NOTE | 2021-03-15 13:12 | CT_ITS ---
WS: [id number] CT LEFT FOOT WITH CONTRAST. HISTORY: CT left foot, concern for osteo /abscess Technique: All CT scans at [facility] use at least one of these dose optimization techniques: automated exposure control; mA and/or kV adjustment per patient size (includes targeted exams where dose is matched to clinical indication); or iterative reconstruction. DLP: 179.51 mGy.cm COMPARISON: 11/15/2020 Contrast: Omnipaque 300; 95 mL IV. Progressive destruction osteomyelitis involving the fourth metatarsal head and phalanx since the kelsy or CT of 11/15/2020. Near complete destruction of the fourth metatarsal head. Small fragments of bone remaining. There is a large soft tissue ulceration along the plantar surface of the fourth metatarsal head. Significant increased soft tissue surrounding the metatarsal head. No focal fluid collection o r enhancement to suggest an abscess. The remaining metatarsals appear intact. Prior amputations of th e second, third and fourth phalanges. CT/CT foot LT w con [id number] IMPRESSION: 1. Progression of osteomyelitis and bone destruction involving the fourth dist al metatarsal and metatarsal head. At least 50% of the distal fourth metatarsal is involved with changes of osteomyelitis. 2. Large plantar surface ulceration extends to surround the fourth metatarsal but no abscess.
[2021-03-15] MEDS: iohexol 300 mg/mL 100 mL Btl IV (13:45)
[2021-03-15] MEDS: enoxaparin 40 mg/0.4 mL Syringe SUBCUT (16:43)
[2021-03-15 17:20] LABS: Glucose Point of Care 251 mg/dL (70-110)
[2021-03-15] MEDS: metoprolol tartrate 25 mg Tablet PO (17:49)
[2021-03-15] MEDS: insulin lispro 100 unit/1 mL SUBCUT ×2 (17:49→21:09)
[2021-03-15] MEDS: gabapentin 400 mg Capsule PO (17:49)
--- NOTE | 2021-03-15 19:32 | PC.NURSE ---
Report to Henna BURCH at this time.
[2021-03-15 19:50] LABS: Anion Gap 14.5 (5-19); Blood Urea Nitrogen 14 mg/dL (8-23); Calcium 8.7 mg/dL (8.5-10.5); Carbon Dioxide 27 mmol/L (22-29); Chloride 99 mmol/L (98-107); Glomerular Filtration Rate 68.1 mL/min (90-130); Glucose 242 mg/dL (65-115); Osmolality Calculated 290 mOsm/kg (285-295); Potassium 4.5 mmol/L (3.5-5.1); Sodium 136 mmol/L (136-145)
[2021-03-15 20:40] LABS: Glucose Point of Care 226 mg/dL (70-110)
[2021-03-15] MEDS: fenofibrate 145 mg Tablet PO (20:52)
[2021-03-15] MEDS: atorvastatin 40 mg Tablet PO (20:52)
[2021-03-15] MEDS: duloxetine 60 mg Capsule PO (20:52)
[2021-03-16] VITALS: BP 119/69; PULSE 83; RESP 17; TEMP 37.2; O2SAT 92
[2021-03-16 03:49] LABS: Basophils # 0.1 10^3/uL (0.0-0.1); Basophils % 0.8 %; Eosinophils # 0.3 10^3/uL (0.0-0.8); Hematocrit 40.7 % (42.0-52.0); Hemoglobin 13.5 g/dL (11.7-16.6); Lymphocytes % 15.6 %; Mean Corpuscular HGB Conc 33.2 g/dL (30.0-36.0); Mean Corpuscular Hemoglobin 30.1 pg (28.0-34.0); Mean Corpuscular Volume 90.6 fl (80-94); Mean Platelet Volume 11.6 fL (7.4-10.4); Monocytes # 1.4 10^3/uL (0.2-0.9); Neutrophils # 8.94 10^3/uL (1.8-7.7); Neutrophils % 70.2 %; Nucleated Red Blood Cells % 0 %; Platelet Count 302 10^3/cmm (130-400); Red Blood Count 4.49 10^6/uL (4.1-5.3); Red Cell Distribution Width 12.5 % (12.1-15.1); White Blood Count 12.7 10^3/uL (4.0-10.0)
[2021-03-16 04:00] VITALS: BP 96/60; PULSE 90; RESP 19; TEMP 37.1; O2SAT 92
[2021-03-16 04:12] LABS: Alanine Aminotransferase 17 U/L (0-41); Albumin Level 3.2 g/dL (3.5-5.2); Alkaline Phosphatase 72 IU/L (40-130); Anion Gap 13.3 (5-19); Aspartate Amino Transferase 16 U/L (0-40); Blood Urea Nitrogen 18 mg/dL (8-23); Calcium 8.8 mg/dL (8.5-10.5); Carbon Dioxide 28 mmol/L (22-29); Chloride 100 mmol/L (98-107); Globulin 3.5 g/dL (1.3-4.6); Glomerular Filtration Rate 68.1 mL/min (90-130); Glucose 251 mg/dL (65-115); Osmolality Calculated 294 mOsm/kg (285-295); Potassium 4.3 mmol/L (3.5-5.1); Sodium 137 mmol/L (136-145); Total Bilirubin 0.2 mg/dL (0.15-1.2); Total Protein 6.7 g/dL (6.6-8.7)
[2021-03-16] MEDS: aspirin 325 mg Tablet PO (07:51)
[2021-03-16] MEDS: gabapentin 400 mg Capsule PO (07:51)
[2021-03-16] MEDS: duloxetine 60 mg Capsule PO (07:51)
[2021-03-16 08:00] VITALS: BP 132/66; PULSE 79; RESP 18; TEMP 37; O2SAT 94
[2021-03-16] MEDS: metoprolol tartrate 25 mg Tablet PO (08:19)
[2021-03-16] MEDS: insulin lispro 100 unit/1 mL SUBCUT ×2 (09:36→12:55)
--- NOTE | 2021-03-16 11:00 | PM.DCS ---
Discharge Providers Date of Admission: 03/15/21 11:08 Date of Discharge: March 16, 2021 Attending Provider at Admission: Armen Gaston MD Attending Provider at Discharge: Armen Gaston MD Primary Care Provider: Juany Guajardo DO Diagnoses at Discharge Discharge Diagnosis (1) Osteomyelitis of left foot: Status: Acute Qualifiers: Osteomyelitis type: other acute Qualified Code(s): M86.172 - Other acute osteomyelitis, left ankle and foot (2) Leukocytosis: Status: Acute (3) Hyperkalemia: Status: Acute (4) Uncontrolled type 2 diabetes mellitus: Status: Acute Qualifiers: Coma presence: unspecified whether coma present (5) Tobacco dependency: Status: Acute Reason for Visit Reason for Visit: Osteomyelitis L Foot Hospital Course Hospital Course Marquis is a 60-year-old white male who presented to the emergency department complaining of swelling in his foot, and a sore. He states it has been gradually coming on the last 2 weeks. He has had no fever. There has been a little bit of discomfort in his leg. There is been no drainage from his ulcer. On exam he had a dark eschar overlying the fourth metatarsal head, plantar surface of his foot. There is no active drainage. Leg was slightly swollen. Venous duplex negative. Mild erythema was noted on admission which had resolved by the second day as well as much of the swelling. White blood cell count had decreased by the second day and he had no fevers. CT scan demonstrated no abscess. Potassium corrected quickly. MILTON inhibitor was discontinued. It was thought he could discharge home on Cipro and Augmentin based on his previous culture results and have close follow-up with wound care next week as well as his primary care provider with a BMP. He will need infectious disease follow-up in the next 2 weeks and he is already established in the clinic from a previous visit. Physical Exam Narrative: EXAM NARRATIVE: General exam no distress Neck is supple no lymphadenopathy thyromegaly Cardiovascular regular rate and rhythm Lungs clear Abdomen is soft Extremities no cyanosis clubbing, see other description above. Discharge Data Data Completed and Pending: Completed Studies During Hospitalization Category Date Time Status CT foot LT w con [id number] Routine Cat Scan 03/15/21 13:12 Completed XR foot LT min 3V * [id number] Stat Exams 03/15/21 08:50 [place] [id number] Urgent Ultrasound 03/15/21 11:23 Completed Pending at discharge Category Date Time Status Blood Culture Sta t Lab 03/15/21 10:20 Results Erythrocyte Sedim entation Rate Stat Lab 03/15/21 09:43 Received Labs from last 24 hours 03/16/21 03/16/21 03/15/21 02:18 02:18 20:27 WBC 12.7 H RBC 4.49 Hgb 13.5 Hct 40.7 L MCV 90.6 MCH 30.1 MCHC 33.2 RDW 12.5 Plt Count 302 MPV 11.6 H Neut % (Auto) 70.2 Lymph % (Auto) 15.6 [place] % (Auto) 11.0 Eos % (Auto) 2.0 Baso % (Auto) 0.8 Neut # (Auto) 8.94 H Lymph # (Auto) 2.0 [place]oke # (Auto) 1.4 H Eos # (Auto) 0.3 Baso # (Auto) 0.1 Nucleated RBC % (a uto) 0 Nucleated RBCs # 0.0 ESR Sodium 137 Potassium 4.3 Chloride 100 Carbon Dioxide 28 Anion Gap 13.3 BUN 18 Creatinine 1.1 GFR Calculation 68.1 L Glucose 251 H POC Glucose 226 H Calculated Osmolal ity 294 Calcium 8.8 Total Bilirubin 0.2 AST 16 ALT 17 Alkaline Phosphata se 72 C-Reactive Protein Total Protein 6.7 Albumin 3.2 L Globulin 3.5 03/15/21 03/15/21 03/15/21 19:17 17:14 09:43 WBC RBC Hgb Hct MCV MCH MCHC RDW Plt Count MPV Neut % (Auto) Lymph % (Auto) [place] % (Auto) Eos % (Auto) Baso % (Auto) Neut # (Auto) Lymph # (Auto) [place] # (Auto) Eos # (Auto) Baso # (Auto) Nucleated RBC % (a uto) Nucleated RBCs # ESR Sodium 136 Potassium 4.5 Chloride 99 Carbon Dioxide 27 Anion Gap 14.5 BUN 14 Creatinine 1.1 GFR Calculation 68.1 L Glucose 242 H POC Glucose 251 H Calculated Osmolal ity 290 Calcium 8.7 Total Bilirubin AST ALT Alkaline Phosphata se C-Reactive Protein 41.0 H Total Protein Albumin Globulin 03/15/21 09:43 WBC RBC Hgb Hct MCV MCH MCHC RDW Plt Count MPV Neut % (Auto) Lymph % (Auto) [place] % (Auto) Eos % (Auto) Baso % (Auto) Neut # (Auto) Lymph # (Auto) [place] # (Auto) Eos # (Auto) Baso # (Auto) Nucleated RBC % (a uto) Nucleated RBCs # ESR Pending Sodium Potassium Chloride Carbon Dioxide Anion Gap BUN Creatinine GFR Calculation Glucose POC Glucose Calculated Osmolal ity Calcium Total Bilirubin AST ALT Alkaline Phosphata se C-Reactive Protein Total Protein Albumin Globulin Vitals: Last Vital Signs Temp 98.6 F 03/16/21 08:00 Pulse 79 03/16/21 08:00 Resp 18 03/16/21 08:00 BP 132/66 03/16/21 08:00 Pulse Ox 94 03/16/21 08:00 Discharge Plan Discharge Patient Disposition: Home Condition: Stable Prescriptions: New ciprofloxacin HCl [Cipro] 500 mg tablet 500 mg PO BID Qty: 28 RF: 0 amoxicillin-pot clavulanate [Augmentin] 875-125 mg tablet 1 tab PO BID Qty: 28 RF: 0 Continued (DME) OneTouch Verio test strips Strip See Rx Instructions .Route Qty: 100 RF: 11 Tresiba FlexTouch U-100 100 unit/mL (3 mL) insulin pen 32 unit SUBCUT QAM RF: 0 metoprolol tartrate 25 mg tablet 25 mg PO BID Qty: 180 RF: 3 methocarbamol 500 mg tablet 500 mg PO BID PRN (Reason: pain) Qty: 60 RF: 2 multivitamin Tablet 1 tab PO DAILY RF: 0 beta carotene 25,000 unit Capsule 25,000 unit PO DAILY RF: 0 cholecalciferol (vitamin D3) [Vitamin D3] 25 mcg (1,000 unit) Capsule 25 mcg PO DAILY RF: 0 omega 7-zit-lgm-fish oil [Fish Oil] 1,000 mg (120 mg-180 mg) Capsule 1 cap PO BID RF: 0 acetaminophen [Tylenol Extra Strength] 500 mg Tablet 500 mg PO TID PRN (Reason: Pain) Qty: 0 RF: 0 insulin aspart U-100 [Novolog Flexpen U-100 Insulin] 100 unit/mL (3 mL) insulin pen See Rx Instructions .ROUTE .COMPLEX RF: 0 cyanocobalamin (vitamin B-12) [Vitamin B-12] 100 mcg Tablet 100 mcg PO DAILY RF: 0 coenzyme Q10 [CoQ-10] 100 mg Capsule 200 mg PO DAILY RF: 0 ascorbic acid (vitamin C) [Vitamin C] 1,000 mg Tablet 1 g PO DAILY RF: 0 atorvastatin 40 mg tablet 40 mg PO BEDTIME RF: 0 gabapentin 400 mg capsule 400 mg PO BID RF: 0 duloxetine 60 mg capsule,delayed release(DR/EC) 60 mg PO BID RF: 0 fenofibrate nanocrystallized 145 mg tablet 145 mg PO BEDTIME RF: 0 aspirin 325 mg Tablet 325 mg PO QAM RF: 0 metformin 1,000 mg tablet 1,000 mg PO BID RF: 0 zinc 50 mg Tablet 50 mg PO BID RF: 0 Victoza 3-John 0.6 mg/0.1 mL (18 mg/3 mL) pen injector 1.8 mg SUBCUT QAM RF: 0 Discontinued lisinopril 5 mg tablet 5 mg PO QAM RF: 0 Discharge Orders: Discharge Order (Routine); Ordered 03/16/21 Ordered By: Armen Gaston Referrals: Belén Champion MD [Hospitalist] - 2 weeks (Within the next 2 weeks for follow-up of osteomyelitis, foot) Juany Guajardo DO [Primary Care Provider] - 4-7 days (BMP on follow-up for recheck of hyperkalemia) [facility], [Staff Physician] - 4-7 days (Dr. Tabares, next week) Discharge Diet: Diabetic Discharge Activity: Increase activity as tolerated Patient Instructions: Opioid Safety Activity Restrictions/Additional Instructions: Low potassium diet Note that your lisinopril has been discontinued Return for any concerns Discharge Attestations Time Spent in Discharge Care*: greater than 30 min Status at Discharge: Cognitive status at discharge: cognitively intact, Behavioral status at discharge: cooperative, Quality Metrics Clinical Quality Measures During this hospital stay, did patient experience: None Coding Level of Care Code Acute [facility] DC note Diagnoses Osteomyelitis of left foot M86.172 Osteomyelitis type: other acute Leukocytosis D72.829 Hyperkalemia E87.5 Uncontrolled type 2 diabetes mellitus E11.65 Coma presence: unspecified whether coma present Tobacco dependency F17.200
[2021-03-16 12:00] VITALS: BP 126/69; PULSE 77; RESP 18; TEMP 36.8; O2SAT 95
[2021-03-16 13:58] LABS: Erythrocyte Sedimentation Rate 70 mm/hr (0-10)
--- NOTE | 2021-03-16 14:15 | PC.CHAP ---
Pastoral Care Encounter/Spiritual Assessment Type of Contact [] Declined mortar carrier visit [] Patient/Family/Request visit [] Outpatient visit [] Follow-up visit [] Physician referral [] Code/Alert [xx] Routine visit [] Staff referral [] Actively dying [] Patient sleeping [] Family support [] [] Out of room [] Palliative care [] [] Receiving care in room [] Pre-surgical visit [] Trauma [] Long length of stay [] ICU visit [] Other: Relational/Emotional Strength [xx] Patient feels connected with others/family/visitors/staff [] Distress [] Loneliness/isolation [] Abandonment Spirituality of Patient [xx] Person of [place] [xx] Attends Mandaeism of their [place] [xx] Believes in Prayer [xx] Reads Bible or Yazdanism materials [] There are Spiritual issues to be addressed Museum Educator Interventions [xx] Prayer [xx] Active listening [xx] Non-anxious presence [] Spiritual/emotional support [] Crisis/trauma care [] Spiritual counseling [] Bereavement support [] Provided bereavement packet [] Provided Bible/devotional materials [] Provided toy/stuffed animal, coloring book to patient or family member [] Provided Communion [] Anointing/[place] [] Salvation [xx] Completed spiritual assessment [] Other: Impact on Illness or Injury [] Angry [] Fearful [] Anxious [] Often cries [] Exhaustion [] Unable to work [] Unable to attend protestant [] Unable to walk/stand [] Unable to read [] Unable to drive [] Unable to eat/drink [] Unable to sleep [] Unable to be with family [] Patient intubated [] Other: Summary Patient states he feels good and expects/hoes to be discharged by end of day. He is very concerned about his who is almost quadriplegic due to MS. Her health concerns him more than his own health. They have been over 30 years. He was quite talkative and pleasant to talk to. Time spent with patient 17 minutes
[2021-03-16 21:31] LABS: Glucose Point of Care 318 mg/dL (70-110)
[2021-03-16 21:31] LABS: Glucose Point of Care 306 mg/dL (70-110)
[2021-03-16 21:32] LABS: Glucose Point of Care 323 mg/dL (70-110)
== END 2021-03-16 15:34 | disposition home or self-care (01) ==
LOC: ER 11:15 → MEDSURG 03-16 10:39
PROVIDERS: Admitting Provider Internal Medicine; Emergency Provider Emergency Medicine; PCP Family Medicine; Visit Provider Internal Medicine
DX: M86.172 Other acute osteomyelitis, left ankle and foot (principal); D72.829 Elevated white blood cell count, unspecified; E87.5 Hyperkalemia; E11.65 Type 2 diabetes mellitus with hyperglycemia; F17.200 Nicotine dependence, unspecified, uncomplicated; Z79.4 Long term (current) use of insulin; Z79.84 Long term (current) use of oral hypoglycemic drugs
CPT/HCPCS: 36415; 36416; 73630; 73701; 80048; 80053; 82962; 83605; 85025; 85651; 86140; 87040; 93005; 93971; 96365; 96366; 96367; 96372; 99291; G0378; J1650; J1815; J2543; J3370; J3490; J7040; Q9967

== ENCOUNTER 2021-03-22 18:17 | Emergency (ER) | payer MEDICAID, SELFPAY ==
[2021-03-22 18:33] VITALS: BP 130/74; PULSE 96; RESP 16; TEMP 36.8; O2SAT 98
--- NOTE | 2021-03-22 19:53 | ED_ITS ---
HPI - Wound/Laceration General: Chief Complaint: Wound/Laceration Stated Complaint: infection in Left foot Time Seen by Provider: 03/22/21 19:31 Source: patient Limitations: no limitations History of Present Illness: HPI narrative: 60-year-old male has a history of a chronic wound to his foot. He does have a chronic ulcer to his left foot and he studies on oral biotics has had no improvements no fevers very minimal redness. He was admitted a week ago overnight. He states he supposed to be following up with wound care but his phone got turned off and he is not made any appointments and has not seen them. He states he has been taking his antibiotics. Associated symptoms: Denies chills, fever(s), nausea or vomiting Review of Systems Const: Denies: fever(s), chills, body aches or change in appetite Eyes: Denies: blurry vision or eye discomfort ENMT: Denies: throat pain or dental pain Card: Denies: chest pain Resp: Denies: dyspnea GI: Denies: abdominal pain, nausea, vomiting or diarrhea : Denies: dysuria Musc: Denies: neck pain or back pain Skin/Breast: Denies: rash Neuro: Denies: headache(s) Psych: Denies: depression Ernesto/Lymph: Denies: easy bruising All/Imm: Denies: urticaria PFSH ED PFSH: Medical History Controlled type 2 diabetes mellitus, with long-term current use of insulin Dry gangrene Dyslipidemia Essential hypertension HTN (hypertension), benign Hypotestosteronemia in male Low back pain radiating down leg Major depressive disorder Tobacco dependency Surgical History History of amputation of toe Right second and left second and third History of eye surgery History of incision and drainage left foot History of total left hip arthroplasty Status post vasectomy Family History Father CAD (coronary artery disease) Diabetes Mother Cancer Chronic kidney disease (CKD) Diabetes Lung disease Grandmother Dementia Stroke Family/Other Suicide Other Hypertension Denies family history of Clotting disorder Anesthesia complication Bleeding disorder Social History Smoking and tobacco status: current every day smoker cigarettes Packs smoked per day: 1 Alcohol intake: former Physical Exam Const: COMMON NORMALS: no acute distress, patient oriented x3 and healthy appearing HENMT: COMMON NORMALS: normocephalic and atraumatic HEAD & SCALP: normocephalic and atraumatic Eye: COMMON NORMALS: Equal, round and reactive pupils present and EOMs intact bilaterally PUPIL: Yes Equal, round and reactive pupils present Neck/C-Spine: COMMON NORMALS: full ROM and supple Chest: COMMONS NORMALS: normal inspection of the chest and normal palpation of entire chest wall Resp: COMMON NORMALS: normal respiratory effort, No retractions, No use of accessory muscles and clear to auscultation bilaterally AUSCULTATION: clear to auscultation bilaterally Cardio: COMMON NORMALS: regular rate, regular rhythm and No murmurs present (Cardio) RATE: regular rate RHYTHM: regular rhythm GI: COMMON NORMALS: Normal to inspection, nondistended, normoactive bowel sounds present, Soft to palpation, non-tender and no masses PALPATION: Yes Soft to palpation Extremity: COMMON NORMALS: full ROM NARRATIVE EXTREMITY EXAM: chronic wound to right foot minimal erythema Neuro: COMMON NORMALS: patient oriented x3, moves all extremities and no focal motor deficits Psych: COMMON NORMALS: mental status grossly normal, Normal thought process present and cooperative THOUGHT PROCESS: Normal thought process present Skin: COMMON NORMALS: no rashes or lesions noted and no wounds GENERAL SKIN EXAM: no rashes or lesions noted Course Vital Signs: Vital signs: Vital Signs Temperature 98.3 F 03/22/21 18:33 Pulse Rate 82 03/22/21 20:35 Respiratory Rate 16 03/22/21 18:33 Blood Pressure 140/82 03/22/21 20:35 Pulse Oximetry 94 03/22/21 20:35 MDM - Wound/Laceration MDM Narrative: Medical decision making narrative: Patient presents with cellulitis to his foot no signs of worsening here afebrile he stable for discharge. I informed him it is very important that he goes to his follow-up with wound care and will attempt to set him up another appointment he is return if worsening he understands agrees to plan. Lab Data: Labs: Lab Results 03/22/21 03/22/21 20:19 20:19 WBC 13.3 10^3/uL H 10 ^3/uL (4.0-10.0) RBC 4.30 10^6/uL 10^6 /uL (4.1-5.3) Hgb 12.9 g/dL g/dL (11.7-16.6) Hct 39.1 % L % (42.0-52.0) MCV 90.9 fl fl (80-94) MCH 30.0 pg pg (28.0-34.0) MCHC 33.0 g/dL g/dL (30.0-36.0) RDW 12.2 % % (12.1-15.1) Plt Count 432 10^3/cmm H 10 ^3/cmm (130-400) MPV 11.0 fL H fL (7.4-10.4) Neut % (Auto) 70.1 % % Lymph % (Auto) 16.5 % % [place] % (Auto) 9.7 % % Eos % (Auto) 2.4 % % Baso % (Auto) 0.8 % % Neut # (Auto) 9.31 10^3/uL H 10 ^3/uL (1.8-7.7) Lymph # (Auto) 2.2 10^3/uL 10^3/ uL (0.8-4.8) [place] # (Auto) 1.3 10^3/uL H 10^ 3/uL (0.2-0.9) Eos # (Auto) 0.3 10^3/uL 10^3/ uL (0.0-0.8) Baso # (Auto) 0.1 10^3/uL 10^3/ uL (0.0-0.1) Nucleated RBC % (a uto) 0 % % Nucleated RBCs # 0.0 /100WBC /100W BC Sodium 134 mmol/L L mmol /L (136-145) Potassium 5.6 mmol/L H mmol /L (3.5-5.1) Chloride 98 mmol/L mmol/L (98-107) Carbon Dioxide 22 mmol/L mmol/L (22-29) Anion Gap 19.6 H (5-19) BUN 22 mg/dL mg/dL (8-23) Creatinine 1.2 mg/dL mg/dL (0.7-1.2) GFR Calculation 61.6 mL/min L mL/ min (90-130) Glucose 345 mg/dL H mg/dL (65-115) Calculated Osmolal ity 295 mOsm/kg mOsm/ kg (285-295) Calcium 9.3 mg/dL mg/dL (8.5-10.5) Total Bilirubin 0.2 mg/dL mg/dL (0.15-1.2) AST 16 U/L U/L (0-40) ALT 19 U/L U/L (0-41) Alkaline Phosphata se 65 IU/L IU/L (40-130) Total Protein 7.6 g/dL g/dL (6.6-8.7) Albumin 3.5 g/dL g/dL (3.5-5.2) Globulin 4.1 g/dL g/dL (1.3-4.6) Discharge Plan Discharge Patient Disposition: Home Clinical Impression: Cellulitis of foot, left Condition: Stable Prescriptions: No Action (DME) OneTouch Verio test strips Strip See Rx Instructions .Route Qty: 100 RF: 11 Tresiba FlexTouch U-100 100 unit/mL (3 mL) insulin pen 32 unit SUBCUT QAM RF: 0 metoprolol tartrate 25 mg tablet 25 mg PO BID Qty: 180 RF: 3 methocarbamol 500 mg tablet 500 mg PO BID PRN (Reason: pain) Qty: 60 RF: 2 multivitamin Tablet 1 tab PO DAILY RF: 0 beta carotene 25,000 unit Capsule 25,000 unit PO DAILY RF: 0 cholecalciferol (vitamin D3) [Vitamin D3] 25 mcg (1,000 unit) Capsule 25 mcg PO DAILY RF: 0 omega 1-uvn-obf-fish oil [Fish Oil] 1,000 mg (120 mg-180 mg) Capsule 1 cap PO BID RF: 0 acetaminophen [Tylenol Extra Strength] 500 mg Tablet 500 mg PO TID PRN (Reason: Pain) Qty: 0 RF: 0 insulin aspart U-100 [Novolog Flexpen U-100 Insulin] 100 unit/mL (3 mL) insulin pen See Rx Instructions .ROUTE .COMPLEX RF: 0 cyanocobalamin (vitamin B-12) [Vitamin B-12] 100 mcg Tablet 100 mcg PO DAILY RF: 0 coenzyme Q10 [CoQ-10] 100 mg Capsule 200 mg PO DAILY RF: 0 ascorbic acid (vitamin C) [Vitamin C] 1,000 mg Tablet 1 g PO DAILY RF: 0 atorvastatin 40 mg tablet 40 mg PO BEDTIME RF: 0 gabapentin 400 mg capsule 400 mg PO BID RF: 0 duloxetine 60 mg capsule,delayed release(DR/EC) 60 mg PO BID RF: 0 fenofibrate nanocrystallized 145 mg tablet 145 mg PO BEDTIME RF: 0 aspirin 325 mg Tablet 325 mg PO QAM RF: 0 metformin 1,000 mg tablet 1,000 mg PO BID RF: 0 zinc 50 mg Tablet 50 mg PO BID RF: 0 Victoza 3-John 0.6 mg/0.1 mL (18 mg/3 mL) pen injector 1.8 mg SUBCUT QAM RF: 0 Cipro 500 mg tablet 500 mg PO BID Qty: 28 RF: 0 Augmentin 875-125 mg tablet 1 tab PO BID Qty: 28 RF: 0 Discharge Orders: Discharge ED (Routine); Ordered 03/22/21 Ordered By: Lucero Savage Referrals: Juany Guajardo DO [Primary Care Provider] - [facility], [Staff Physician] - Discharge Diet: Advance as tolerated Discharge Activity: Resume usual activity Patient Instructions: Cellulitis (ED) Coding Level of Care Code ED Board Operator for Osmar Fwd Exam Comprehensive
[2021-03-22] MEDS: vancomycin 1,000 MG in sodium chloride 0.9% 250 ML 250 MG IV (20:31)
[2021-03-22 20:35] VITALS: BP 140/82; PULSE 82; O2SAT 94
[2021-03-22 20:44] LABS: Basophils # 0.1 10^3/uL (0.0-0.1); Basophils % 0.8 %; Eosinophils # 0.3 10^3/uL (0.0-0.8); Eosinophils % 2.4 %; Hematocrit 39.1 % (42.0-52.0); Hemoglobin 12.9 g/dL (11.7-16.6); Lymphocytes # 2.2 10^3/uL (0.8-4.8); Lymphocytes % 16.5 %; Mean Corpuscular Volume 90.9 fl (80-94); Monocytes # 1.3 10^3/uL (0.2-0.9); Monocytes % 9.7 %; Neutrophils # 9.31 10^3/uL (1.8-7.7); Neutrophils % 70.1 %; Nucleated Red Blood Cells % 0 %; Platelet Count 432 10^3/cmm (130-400); Red Cell Distribution Width 12.2 % (12.1-15.1); White Blood Count 13.3 10^3/uL (4.0-10.0)
[2021-03-22 21:03] LABS: Alanine Aminotransferase 19 U/L (0-41); Albumin Level 3.5 g/dL (3.5-5.2); Alkaline Phosphatase 65 IU/L (40-130); Anion Gap 19.6 (5-19); Aspartate Amino Transferase 16 U/L (0-40); Blood Urea Nitrogen 22 mg/dL (8-23); Calcium 9.3 mg/dL (8.5-10.5); Carbon Dioxide 22 mmol/L (22-29); Chloride 98 mmol/L (98-107); Globulin 4.1 g/dL (1.3-4.6); Glomerular Filtration Rate 61.6 mL/min (90-130); Glucose 345 mg/dL (65-115); Osmolality Calculated 295 mOsm/kg (285-295); Potassium 5.6 mmol/L (3.5-5.1); Sodium 134 mmol/L (136-145); Total Bilirubin 0.2 mg/dL (0.15-1.2); Total Protein 7.6 g/dL (6.6-8.7)
[2021-03-22 22:07] VITALS: BP 140/82; PULSE 82; O2SAT 94
== END 2021-03-22 22:12 | disposition home or self-care (01) ==
PROVIDERS: Emergency Provider Emergency Medicine; PCP Family Medicine
DX: L03.116 Cellulitis of left lower limb (principal); Z79.4 Long term (current) use of insulin; Z79.84 Long term (current) use of oral hypoglycemic drugs; Z79.82 Long term (current) use of aspirin; E11.9 Type 2 diabetes mellitus without complications; E78.5 Hyperlipidemia, unspecified; I10 Essential (primary) hypertension; F17.210 Nicotine dependence, cigarettes, uncomplicated
CPT/HCPCS: 80053; 85025; 96365; 99284; A6446; J3370; J7050

== ENCOUNTER 2021-03-28 13:56 | Outpatient (CLI) | payer MEDICAID, SELFPAY | END 2021-03-28 13:57 | disposition home or self-care (01) | LOC: WOUND 13:56 | PROVIDERS: PCP Family Medicine; Visit Provider Nurse Practitioner Family | DX: I96 Gangrene, not elsewhere classified (principal); E11.621 Type 2 diabetes mellitus with foot ulcer; L97.522 Non-pressure chronic ulcer of other part of left foot with fat layer exposed; F17.210 Nicotine dependence, cigarettes, uncomplicated | CPT/HCPCS: 11042; 99214; G0463 ==

== ENCOUNTER 2021-04-02 08:38 | Outpatient (CLI) | payer MEDICAID, SELFPAY | END 2021-04-02 08:39 | disposition home or self-care (01) | LOC: WOUND 08:39 | PROVIDERS: PCP Family Medicine; Visit Provider Nurse Practitioner Family | DX: M86.672 Other chronic osteomyelitis, left ankle and foot (principal) | CPT/HCPCS: G0277 ==

== ENCOUNTER 2021-04-03 07:56 | Outpatient (CLI) | payer MEDICAID, SELFPAY | END 2021-04-03 07:57 | disposition home or self-care (01) | LOC: WOUND 07:57 | PROVIDERS: PCP Family Medicine; Visit Provider Nurse Practitioner Family | DX: M86.672 Other chronic osteomyelitis, left ankle and foot (principal) | CPT/HCPCS: G0277 ==

== ENCOUNTER 2021-04-04 08:02 | Outpatient (CLI) | payer MEDICAID, SELFPAY | END 2021-04-04 08:03 | disposition home or self-care (01) | LOC: WOUND 08:04 | PROVIDERS: PCP Family Medicine; Visit Provider Nurse Practitioner Family | DX: E11.621 Type 2 diabetes mellitus with foot ulcer (principal); L97.524 Non-pressure chronic ulcer of other part of left foot with necrosis of bone; F17.210 Nicotine dependence, cigarettes, uncomplicated; I10 Essential (primary) hypertension | CPT/HCPCS: 11042 ==

== ENCOUNTER 2021-04-05 08:05 | Outpatient (CLI) | payer MEDICAID, SELFPAY | END 2021-04-05 08:06 | disposition home or self-care (01) | LOC: WOUND 08:06 | PROVIDERS: PCP Family Medicine; Visit Provider Nurse Practitioner Family | DX: M86.672 Other chronic osteomyelitis, left ankle and foot (principal) | CPT/HCPCS: G0277 ==

== ENCOUNTER 2021-04-09 08:09 | Inpatient (IN) | payer MEDICAID, SELFPAY ==
[2021-04-09 08:47] VITALS: BP 155/77; PULSE 98; RESP 12; TEMP 37.2; O2SAT 97; BMI 29.5
--- NOTE | 2021-04-09 09:54 | XRR_ITS ---
PROCEDURE INFORMATION: Exam: XR Left Foot Exam date and time: 04/09/2021 9:54 AM Age: 60 years old Clinical indication: Condition or disease; Other: Diabetic foot ulcer; Prior surgery TECHNIQUE: Imaging protocol: XR Left foot. Views: 3 or more views. COMPARISON: CT foot LT w con [id number] 04/09/2021 10:11 AM FINDINGS: Bones/joints: The patient is status post amputation of the 2nd, 3rd and 4th toes. There is new lucency, cortical destruction and irregularity of the 5th toe proximal phalanx base and 5th metatarsal head, in association with swelling of the surrounding soft tissues and focal area of ulceration lateral to the 5th MTP joint, consistent with osteomyelitis and septic arthritis. No fracture or dislocation. Soft tissues: See Bones/joints finding. XR/XR foot LT min 3V* [id number] IMPRESSION: Imaging findings of osteomyelitis and septic arthritis involving the 5th MTP joint and adjacent osseous structures.
--- NOTE | 2021-04-09 09:56 | ECG_ITS ---
[facility] Test Date: 2021-04-09 Pat Name: Marquis Ballard Department: Room: Gender: Male Information Tech: : 1960 Requested By: Carter Valadez Order Number: [id number] Mona MD: Chuyita Sotelo M.D. Measurements Intervals [place] Rate: 89 P: 43 [place]: 154 QRS: 31 QRSD: 100 T: 54 QT: 333 QTc: 407 Interpretive Statements SINUS RHYTHM Compared to ECG 03/15/2021 10:48:51 No significant changes Electronically Signed On 04-09-2021 20:51:55 GRASS CUTTER by Chuyita Sotelo M.D. [id number]
--- NOTE | 2021-04-09 09:57 | CT_ITS ---
WS: [id number] CT LEFT FOOT WITH CONTRAST HISTORY: osteomyelitis Technique: All CT scans at [facility] use at least one of these dose optimization techniques: automated exposure control; mA and/or kV adjustment per patient size (includes targeted exams where dose is matched to clinical indication); or iterative reconstruction. DLP: 205.32 mGy.cm Contrast: Omnipaque 300; 95 mL IV. COMPARISON: 03/15/2021 and radiograph 04/09/2021 Prior amputations involving the second, third and fourth toes. First toe and metatarsal are intact. Deformity of the second and third metatarsal heads but no defini te osteomyelitis. Lytic changes involving the mid to distal remaining fourth metatarsal. Osteomyeliti s was previously described involving the fourth metatarsal. Small bony fragments at the site. There i s extensive soft tissue enhancement involving a large portion of the fourth metatarsal. There is air scattered within the soft tissues. Nondisplaced fracture involving the proximal phalanx of the fifth toe. Lucency and osseous destructio n involving the fifth metatarsal head with adjacent large soft tissue ulceration and numerous foci of air surrounding the fifth metatarsal greatest along the plantar surface. Soft tissue ulcer diameter is at least 18 mm. No additional abnormality. CT/CT foot LT w con [id number] IMPRESSION: 1. New destructive bone changes involving the fifth metatarsal head with a pat hological fracture involving the proximal phalanx of the fifth toe. Findings ar e highly suspicious for osteomyelitis with an associated large soft tissue ulce ration. These findings are new since 03/15/2021. 2. Fourth metatarsal destruction from osteomyelitis was previously described o n 03/15/2021 and may have progressed slightly. 3. Severe cellulitis with soft tissue edema surrounding predominantly the four th and fifth metatarsals. 4. Prior amputations of the second, third and fourth toes.
--- NOTE | 2021-04-09 10:05 | ED_ITS ---
HPI - Extremity Problem General: Chief complaint: Extremity Injury, Lower Stated complaint: OSTEOMYELITIS L LOWER LEG Time Seen by Provider: 04/09/21 08:19 History of Present Illness: HPI Narrative: 60-year-old male who has had chronic osteomyelitis from a stage IV ulcer on his left foot. He is previously an amputation of toes on that foot. Today he presents complaining of foul- smelling draining wound on the left foot. He has had imaging early last month that showed osteomyelitis he is currently on oral antibiotics despite this it continues to worsen he has redness and erythema induration of the skin that is spreading proximally up the foot. No fevers no chest pain. Patient is a known diabetic. He has previously had vascular evaluation on that leg at our facility. MD Complaint: extremity swelling Onset (ago): week(s) Pain Consistency: constant Location: left Quality: aching Radiation: none Relieving factors: immobilization Exacerbating factors: weight bearing, walking and palpation Associated symptoms: Deny chest pain, fever(s), myalgias, rash or short of breath Review of Systems Const: Denies: fever(s) ENMT: Denies: throat pain, ear or mastoid pain, nasal discharge or nasal congestion Card: Denies: chest pain Resp: Denies: dyspnea, productive cough or non-productive cough GI: Denies: abdominal pain, nausea, vomiting, hematemesis, coffee ground emesis, diarrhea, constipation, bloating, hematochezia or melena : Denies: flank pain, dysuria, urinary frequency or urinary urgency Skin/Breast: Denies: rash PFSH ED PFSH: Medical History Controlled type 2 diabetes mellitus, with long-term current use of insulin Dry gangrene Dyslipidemia Essential hypertension HTN (hypertension), benign Hypotestosteronemia in male Low back pain radiating down leg Major depressive disorder Tobacco dependency Surgical History History of amputation of toe Right second and left second and third History of eye surgery History of incision and drainage left foot History of total left hip arthroplasty Status post vasectomy Family History Father CAD (coronary artery disease) Diabetes Mother Cancer Chronic kidney disease (CKD) Diabetes Lung disease Grandmother Dementia Stroke Family/Other Suicide Other Hypertension Denies family history of Clotting disorder Anesthesia complication Bleeding disorder Social History Smoking and tobacco status: current every day smoker cigarettes Packs smoked per day: 1 Alcohol intake: former Physical Exam Const: GENERAL APPEARANCE: cooperative and comfortable ORIENTATION/CONSCIOUSNESS: Yes awake, Yes oriented to person, Yes oriented to place and Yes oriented to time HENMT: COMMON NORMALS: normocephalic, atraumatic and hearing grossly normal bilaterally HEAD & SCALP: normocephalic and atraumatic Neck/C-Spine: COMMON NORMALS: no JVD Resp: COMMON NORMALS: normal respiratory effort, No retractions, No use of accessory muscles and clear to auscultation bilaterally AUSCULTATION: clear to auscultation bilaterally Cardio: COMMON NORMALS: no JVD, regular rate, regular rhythm and No murmurs present (Cardio) RATE: regular rate RHYTHM: regular rhythm GI: COMMON NORMALS: Soft to palpation and No hepatosplenomegaly present AUSCULTATION: Yes normoactive bowel sounds PALPATION: Yes Soft to palpation, No Tenderness to palpation present (GI), No Guarding due to palpation present (GI) and Yes No hepatosplenomegaly present Extremity: OTHER: Left foot ulcer full-thickness ulcer with exposed subdermal tissue. No exposed bone I did not probe the wound there is no drainage there is localized erythema extending to the dorsum of the foot. Neuro: SENSORIUM/ORIENTATION: Yes oriented to person, Yes oriented to place and Yes oriented to time Skin: COMMON NORMALS: no rashes or lesions noted GENERAL SKIN EXAM: no rashes or lesions noted Course Vital Signs: Vital signs: Vital Signs Temperature 97.7 F 04/12/21 07:57 Pulse Rate 70 04/12/21 07:57 Respiratory Rate 17 04/12/21 07:57 Blood Pressure 152/76 04/12/21 07:57 Pulse Oximetry 95 04/12/21 07:57 MDM - Extremity (Nontraumatic) MDM Narrative: Medical decision making narrative: Osteomyelitis of the new pathologic fracture on imaging. Discussed with hospitalist will start oral antibiotics patient likely will need amputation. He seen Dr. Tabarse in the past has been consulted orders written Lab Data: Labs: Lab Results 04/09/21 04/09/21 04/09/21 10:35 10:35 10:36 WBC 12.1 10^3/uL H 10 ^3/uL (4.0-10.0) RBC 3.85 10^6/uL L 10 ^6/uL (4.1-5.3) Hgb 11.5 g/dL L g/dL (11.7-16.6) Hct 35.3 % L % (42.0-52.0) MCV 91.7 fl fl (80-94) MCH 29.9 pg pg (28.0-34.0) MCHC 32.6 g/dL g/dL (30.0-36.0) RDW 12.2 % % (12.1-15.1) Plt Count 368 10^3/cmm 10^3 /cmm (130-400) MPV 10.9 fL H fL (7.4-10.4) Neut % (Auto) 73.2 % % Lymph % (Auto) 11.5 % % [place] % (Auto) 11.4 % % Eos % (Auto) 2.7 % % Baso % (Auto) 0.8 % % Neut # (Auto) 8.83 10^3/uL H 10 ^3/uL (1.8-7.7) Lymph # (Auto) 1.4 10^3/uL 10^3/ uL (0.8-4.8) [place] # (Auto) 1.4 10^3/uL H 10^ 3/uL (0.2-0.9) Eos # (Auto) 0.3 10^3/uL 10^3/ uL (0.0-0.8) Baso # (Auto) 0.1 10^3/uL 10^3/ uL (0.0-0.1) Nucleated RBC % (a uto) 0 % % Nucleated RBCs # 0.0 /100WBC /100W BC Sodium 132 mmol/L L mmol /L (136-145) Potassium 5.2 mmol/L H mmol /L (3.5-5.1) Chloride 97 mmol/L L mmol/ L (98-107) Carbon Dioxide 26 mmol/L mmol/L (22-29) Anion Gap 14.2 (5-19) BUN 16 mg/dL mg/dL (8-23) Creatinine 1.0 mg/dL mg/dL (0.7-1.2) GFR Calculation 76.0 mL/min L mL/ min (90-130) Glucose 415 mg/dL H mg/dL (65-115) Calculated Osmolal ity 293 mOsm/kg mOsm/ kg (285-295) Lactic Acid Calcium 8.6 mg/dL mg/dL (8.5-10.5) Total Bilirubin 0.2 mg/dL mg/dL (0.15-1.2) AST 14 U/L U/L (0-40) ALT 15 U/L U/L (0-41) Alkaline Phosphata se 57 IU/L IU/L (40-130) C-Reactive Protein 65.5 mg/L H mg/L (0.0-4.9) Total Protein 7.1 g/dL g/dL (6.6-8.7) Albumin 3.2 g/dL L g/dL (3.5-5.2) Globulin 3.9 g/dL g/dL (1.3-4.6) 04/09/21 10:59 WBC RBC Hgb Hct MCV MCH MCHC RDW Plt Count MPV Neut % (Auto) Lymph % (Auto) [place] % (Auto) Eos % (Auto) Baso % (Auto) Neut # (Auto) Lymph # (Auto) [place] # (Auto) Eos # (Auto) Baso # (Auto) Nucleated RBC % (a uto) Nucleated RBCs # Sodium Potassium Chloride Carbon Dioxide Anion Gap BUN Creatinine GFR Calculation Glucose Calculated Osmolal ity Lactic Acid 1.3 mmol/L mmol/L (0.5-2.2) Calcium Total Bilirubin AST ALT Alkaline Phosphata se C-Reactive Protein Total Protein Albumin Globulin Discharge Plan Discharge Patient Disposition: Admitted As Inpatient Admit Provider: Armen Gaston Clinical Impression: Foot osteomyelitis, left, Cellulitis, Poorly controlled diabetes mellitus, Diabetic foot ulcer, Essential hypertension Condition: Stable Coding Level of Care Code ED Quality Assurance Intern for [facility]
[2021-04-09] MEDS: iohexol 300 mg/mL 100 mL Btl IV (10:10)
[2021-04-09 10:42] LABS: Basophils # 0.1 10^3/uL (0.0-0.1); Basophils % 0.8 %; Eosinophils # 0.3 10^3/uL (0.0-0.8); Eosinophils % 2.7 %; Hematocrit 35.3 % (42.0-52.0); Hemoglobin 11.5 g/dL (11.7-16.6); Lymphocytes # 1.4 10^3/uL (0.8-4.8); Lymphocytes % 11.5 %; Mean Corpuscular HGB Conc 32.6 g/dL (30.0-36.0); Mean Corpuscular Hemoglobin 29.9 pg (28.0-34.0); Mean Corpuscular Volume 91.7 fl (80-94); Mean Platelet Volume 10.9 fL (7.4-10.4); Monocytes # 1.4 10^3/uL (0.2-0.9); Monocytes % 11.4 %; Neutrophils # 8.83 10^3/uL (1.8-7.7); Neutrophils % 73.2 %; Nucleated Red Blood Cells % 0 %; Platelet Count 368 10^3/cmm (130-400); Red Blood Count 3.85 10^6/uL (4.1-5.3); Red Cell Distribution Width 12.2 % (12.1-15.1); White Blood Count 12.1 10^3/uL (4.0-10.0)
[2021-04-09] MEDS: vancomycin 1,000 MG in sodium chloride 0.9% 250 ML 250 MG IV (10:42)
[2021-04-09 11:03] LABS: Alanine Aminotransferase 15 U/L (0-41); Albumin Level 3.2 g/dL (3.5-5.2); Alkaline Phosphatase 57 IU/L (40-130); Anion Gap 14.2 (5-19); Aspartate Amino Transferase 14 U/L (0-40); Blood Urea Nitrogen 16 mg/dL (8-23); Calcium 8.6 mg/dL (8.5-10.5); Carbon Dioxide 26 mmol/L (22-29); Chloride 97 mmol/L (98-107); Globulin 3.9 g/dL (1.3-4.6); Glucose 415 mg/dL (65-115); Osmolality Calculated 293 mOsm/kg (285-295); Potassium 5.2 mmol/L (3.5-5.1); Sodium 132 mmol/L (136-145); Total Bilirubin 0.2 mg/dL (0.15-1.2); Total Protein 7.1 g/dL (6.6-8.7)
[2021-04-09 11:31] LABS: Lactic Sepsis W/Reflex 1.3 mmol/L (0.5-2.2)
--- NOTE | 2021-04-09 12:09 | PM.HP ---
Providers/Chief Complaint Primary Care Provider: Juany Guajardo DO Chief Complaint: OSTEOMYELITIS L LOWER LEG History of Present Illness Marquis Ballard is a 60 year old male who presents with complaints of worsening story, and pain of his left foot. I saw him back on March 15, where he was admitted for short hospital stay and placed on antibiotics as an outpatient to follow-up in wound clinic and with infectious disease. He reports he has not been able to follow-up with infectious disease secondary to difficulties with scheduling the holidays. He was seen in wound clinic and getting hyperbaric. He reports he took about 2 weeks of antibiotics, but these have since been stopped. He reports no fever. He has had increased drainage. He reports he has been bearing weight on the foot, which increases pain. He is not for sure when drainage started from the foot. Please see previous history and physical March 15 regarding his history given then. Previous cultures had grown a gram-positive benny and Proteus mirabilis which was sensitive to Augmentin. Arterial duplex studies in September demonstrated no significant large vessel occlusion, although distal small vessel disease might be present. Recent venous duplex showed no DVT. Review of Systems General: Reports: 10 or more systems reviewed and unremarkable except in HPI and below Const: Denies: fever(s) or chills Eyes: Denies: change in vision ENMT: Denies: throat pain Card: Denies: chest pain Resp: Denies: dyspnea GI: Denies: abdominal pain : Denies: flank pain Musc: Reports: extremity pain and extremity swelling Skin/Breast: Denies: rash Neuro: Denies: headache(s) Psych: Denies: anxiety Endo: Denies: polyuria Ernesto/Lymph: Denies: easy bruising All/Imm: Denies: urticaria Medications/Allergies Home Medications Medication Instructions Recorded Confirmed Last Taken Type beta carotene 25,000 unit PO DAILY 10/06/19 03/15/21 12/13/20 History cholecalciferol (vitamin D3) 25 mcg PO DAILY 10/06/19 03/15/21 12/13/20 History [Vitamin D3] multivitamin 1 tab PO DAILY 10/06/19 03/15/21 12/13/20 History omega 4-[id number]-fish oil [Fish Oil] 1 cap PO BID 10/06/19 03/15/21 12/13/20 History acetaminophen [Tylenol Extra 500 mg PO TID PRN #0 tab 10/27/19 03/15/21 12/13/20 Rx Strength] coenzyme Q10 [CoQ-10] 200 mg PO DAILY 11/14/20 03/15/21 12/13/20 History cyanocobalamin (vitamin B-12) 100 mcg PO DAILY 11/14/20 03/15/21 12/13/20 History [Vitamin B-12] insulin aspart U-100 [Novolog See Rx Instructions .ROUTE .COMPLEX 11/14/20 03/15/21 12/13/20 History Flexpen U-100 Insulin] ascorbic acid (vitamin C) [Vitamin 1 g PO DAILY 12/13/20 03/15/21 12/13/20 History C] insulin degludec 100 unit/mL (3 32 unit SUBCUT QAM ml 01/22/21 03/15/21 Unknown History mL) subcutaneous pen metoprolol tartrate 25 mg tablet 25 mg PO BID #180 tab 01/22/21 03/15/21 03/15/21 06:00 Rx methocarbamol 500 mg tablet 500 mg PO BID PRN #60 tab 03/08/21 03/15/21 Unknown Rx Victoza 3-John 1.8 mg SUBCUT QAM 03/15/21 03/15/21 03/14/21 History aspirin 325 mg PO QAM 03/15/21 03/15/21 03/15/21 06:00 History atorvastatin 40 mg PO BEDTIME 03/15/21 03/15/21 03/14/21 History duloxetine 60 mg PO BID 03/15/21 03/15/21 03/15/21 06:00 History fenofibrate nanocrystallized 145 mg PO BEDTIME 03/15/21 03/15/21 03/14/21 History gabapentin 400 mg PO BID 03/15/21 03/15/21 03/15/21 History metformin 1,000 mg PO BID 03/15/21 03/15/21 03/15/21 06:00 History zinc 50 mg PO BID 03/15/21 03/15/21 03/15/21 06:00 History amoxicillin-pot clavulanate 1 tab PO BID #28 tab 03/16/21 Unknown Rx [Augmentin] ciprofloxacin HCl [Cipro] 500 mg PO BID #28 tab 03/16/21 Unknown Rx blood sugar diagnostic #300 ea 04/04/21 Unknown Rx lisinopril 5 mg PO QAM 04/09/21 04/09/21 04/09/21 06:30 History Allergies Allergy/AdvReac Type Severity Reaction Status Date / Time NSAIDS (Non-Steroidal Allergy Unknown ALGY-Anaphy Unverified 04/09/21 12:14 Anti-Inflamma laxis,Unkno [NSAIDS (Non-Steroidal wn Anti-Inflammatory Drug)] oseltamivir [From Tamiflu] Allergy ADR-Nausea Verified 04/09/21 08:47 triethanolamine Allergy ALGY-Rash Verified 04/09/21 08:47 [From Cerumenex] PFSH Acute PFSH: Medical History Controlled type 2 diabetes mellitus, with long-term current use of insulin Dry gangrene Dyslipidemia Essential hypertension HTN (hypertension), benign Hypotestosteronemia in male Low back pain radiating down leg Major depressive disorder Tobacco dependency Surgical History History of amputation of toe Right second and left second and third History of eye surgery History of incision and drainage left foot History of total left hip arthroplasty Status post vasectomy Family History Father CAD (coronary artery disease) Diabetes Mother Cancer Chronic kidney disease (CKD) Diabetes Lung disease Grandmother Dementia Stroke Family/Other Suicide Other Hypertension Denies family history of Clotting disorder Anesthesia complication Bleeding disorder Social History Smoking and tobacco status: current every day smoker cigarettes Packs smoked per day: 1 Alcohol intake: former Vitals/I&O/Wt Last Vital Signs Temp 99.0 F 04/09/21 08:47 Pulse 98 04/09/21 08:47 Resp 12 04/09/21 08:47 BP 155/77 04/09/21 08:47 Pulse Ox 97 04/09/21 08:47 Weight last 48 hrs Weight 90.718 kg Data : 04/09/21 10:35 04/09/21 10:35 Micro: Microbiology 04/09/21 10:38 Blood Culture - Preliminary Blood SPECIMEN COLLECTED 04/09/21 10:35 Blood Culture - Preliminary Blood SPECIMEN COLLECTED Other data: LFTs normal, albumin 3.2 CT foot demonstrates destructive bone changes, new, had 1/5 metatarsal head with pathologic fracture proximal phalanx fifth toe suspicious for osteomyelitis. Cellulitis also noted. Fourth metatarsal destruction previously described March 15 possibly slightly worse. A&P Assessment and plan (1) Osteomyelitis of left foot: Previous involvement of fourth metatarsal New involvement of fifth metatarsal, likely pathologic fracture proximal fifth phalanx Initiate vancomycin, Zosyn Surgery consultation for wound care, possible need for amputation Has had vascular studies approximately 6 months ago which did not demonstrated any large vessel occlusion. Check CRP, sedimentation rate Note that he had a blood culture obtained on admission. Status: Acute Qualifiers: Osteomyelitis type: other acute Qualified Code(s): M86.172 - Other acute osteomyelitis, left ankle and foot (2) Cellulitis: Antibiotics as above Status: Acute Qualifiers: Laterality: left Site of cellulitis: extremity Site of cellulitis of extremity: lower extremity Qualified Code(s): L03.116 - Cellulitis of left lower limb (3) Poorly controlled diabetes mellitus: Sliding scale insulin. Continue long-acting insulin. Status: Acute (4) Essential hypertension: Continue home meds Status: Chronic Additional A&P Information Mild hyperkalemia, recheck tomorrow History of tobacco dependency. Encourage abstinence. Full code Lovenox for DVT prophylaxis Attestations Medical Necessity Statement*: Will need greater than 2 midnight stay for evaluation and treatment of osteomyelitis. Time Spent in Patient Care: Greater than 35 minutes Coding Level of Care Code Acute Senior Reservations Agent for [facility] Fwd Diagnoses Osteomyelitis of left foot M86.172 Osteomyelitis type: other acute Cellulitis L03.116 Laterality: left Site of cellulitis: extremity Site of cellulitis of extremity: lower extremity Poorly controlled diabetes mellitus E11.65 Essential hypertension I10
--- NOTE | 2021-04-09 13:53 | PC.PHAR ---
pt states he takes care of his own medications-pt states he has a testostrone cyp injection but states he hasnt taken in 2 months maybe longer-pt states he has been out of his aspirin 325mg for a few weeks-notes are made in the pharmacy comments
[2021-04-09 13:55] LABS: C Reactive Protein 65.5 mg/L (0.0-4.9)
--- NOTE | 2021-04-09 16:12 | P.CONIM_ITS ---
Providers/Reason For Consult Consulting Physician/Specialty*: Dr. Tabares/cardiothoracic surgery Reason for Consult*: Cellulitis left foot with infected diabetic ulcer and osteomyelitis of the fifth metatarsal head Requesting Physician: Dr. Gaston Attending Physician: Dr. Gaston Primary Care Provider: Juany Guajardo DO History of Present Illness History of Present Illness Marquis Ballard is a 60 year old male who is been followed in wound care services since this past November for a diabetic foot ulcer and previous osteomyelitis and extensive medical treatment and debridement. He also was receiving hyperbaric oxygen therapy. He has had prior amputation of his right great toe and previous amputations earlier last year of his left second and third toes. He was last seen in wound care services on April 04 with some exposed bone and necrotic material. He was continuing HBO therapy. He has essentially had refractory osteomyelitis. He presented to the emergency department today with drainage from the left foot wound with erythema and local heat and increasing pain consistent with cellulitis. Indeed, x-ray and subsequent confirmatory CT scan reveal evidence for osteomyelitis of the fifth metatarsal head on the left foot along with fracture of the proximal phalanx of the left fifth toe. Mr. Ballard has remained relatively active throughout his wound care treatments over a protracted period including substantial weightbearing despite recommendations. Previous treatments have been for gram-positive benny and Proteus both mirabilis which have been previously sensitive to Augmentin. Arterial duplex study September of last year revealed no Kiara substantial large vessel occlusive disease. Left foot CT scan today revealed: 1. New destructive bone changes involving the fifth metatarsal head with a pathological fracture involving the proximal phalanx of the fifth toe. Findings are highly suspicious for osteomyelitis with an associated large soft tissue ulceration. These findings are new since 03/15/2021. 2. Fourth metatarsal destruction from osteomyelitis was previously described on 03/15/2021 and may have progressed slightly. 3. Severe cellulitis with soft tissue edema surrounding predominantly the fourth and fifth metatarsals. 4. Prior amputations of the second, third and fourth toes. Review of Systems Const: Denies: fever(s), chills, change in appetite, change in weight, fatigue or night sweats Eyes: Denies: change in vision or blurry vision ENMT: Denies: odynophagia or hoarseness Card: Denies: chest pain, palpitations, irregular heart rhythm or edema Resp: Denies: dyspnea or productive cough GI: Denies: abdominal pain, nausea, vomiting, dysphagia, heartburn or change in bowel habits : Denies: difficulty urinating, dysuria, urinary frequency, urinary urgency or urinary hesitancy Musc: Reports: extremity pain, extremity swelling, joint pain and joint redness Skin/Breast: Denies: rash Neuro: Denies: headache(s), numbness in extremities, weakness in extremities or sensory changes Psych: Denies: anxiety, depression or change in appetite Endo: Denies: polyuria, polydipsia or cold intolerance Ernesto/Lymph: Denies: easy bruising, easy bleeding, petechiae or enlarged lymph nodes Meds/Allergies Home Medications and Allergies Home Medications Medication Instructions Recorded Confirmed Last Taken Type beta carotene 25,000 unit PO BID 10/06/19 04/09/21 04/09/21 06:30 History cholecalciferol (vitamin D3) 25 mcg PO QAM 10/06/19 04/09/21 04/09/21 06:30 History [Vitamin D3] multivitamin 1 tab PO DAILY 10/06/19 04/09/21 12/13/20 History acetaminophen [Tylenol Extra 500 mg PO TID PRN #0 tab 10/27/19 04/09/21 04/09/21 06:30 Rx Strength] 1,000 mg coenzyme Q10 [CoQ-10] 100 mg PO DAILY 11/14/20 04/09/21 12/13/20 History cyanocobalamin (vitamin B-12) 100 mcg PO DAILY 11/14/20 04/09/21 12/13/20 History [Vitamin B-12] insulin aspart U-100 [Novolog See Rx Instructions .ROUTE .COMPLEX 11/14/20 04/09/21 04/08/21 History Flexpen U-100 Insulin] ascorbic acid (vitamin C) [Vitamin 1 g PO QAM 12/13/20 04/09/21 04/09/21 06:30 History C] insulin degludec 100 unit/mL (3 32 unit SUBCUT QAM ml 01/22/21 04/09/21 Unknown History mL) subcutaneous pen metoprolol tartrate 25 mg tablet 25 mg PO BID #180 tab 01/22/21 04/09/21 04/09/21 06:30 Rx methocarbamol 500 mg tablet 500 mg PO BID PRN #60 tab 03/08/21 04/09/21 Unknown Rx Victoza 3-John 1.8 mg SUBCUT QAM 03/15/21 04/09/21 04/08/21 History aspirin 325 mg PO QAM 03/15/21 04/09/21 03/15/21 06:00 History atorvastatin 40 mg PO BEDTIME 03/15/21 04/09/21 04/08/21 History duloxetine 60 mg PO BID 03/15/21 04/09/21 04/09/21 06:30 History fenofibrate nanocrystallized 145 mg PO BEDTIME 03/15/21 04/09/21 04/08/21 History gabapentin 400 mg PO BID 03/15/21 04/09/21 04/09/21 06:30 History metformin 1,000 mg PO BID 03/15/21 04/09/21 04/09/21 06:30 History blood sugar diagnostic #300 ea 04/04/21 04/09/21 Unknown Rx lisinopril 5 mg PO QAM 04/09/21 04/09/21 04/09/21 06:30 History Allergies Allergy/AdvReac Type Severity Reaction Status Date / Time NSAIDS (Non-Steroidal Allergy Unknown ALGY-Anaphy Unverified 04/09/21 12:14 Anti-Inflamma laxis,Unkno [NSAIDS (Non-Steroidal wn Anti-Inflammatory Drug)] oseltamivir [From Tamiflu] Allergy ADR-Nausea Verified 04/09/21 08:47 triethanolamine Allergy ALGY-Rash Verified 04/09/21 08:47 [From Cerumenex] PFSH Acute PFSH: Medical History Controlled type 2 diabetes mellitus, with long-term current use of insulin Dry gangrene Dyslipidemia Essential hypertension HTN (hypertension), benign Hypotestosteronemia in male Low back pain radiating down leg Major depressive disorder Tobacco dependency Surgical History History of amputation of toe Right second and left second and third History of eye surgery History of incision and drainage left foot History of total left hip arthroplasty Status post vasectomy Family History Father CAD (coronary artery disease) Diabetes Mother Cancer Chronic kidney disease (CKD) Diabetes Lung disease Grandmother Dementia Stroke Family/Other Suicide Other Hypertension Denies family history of Clotting disorder Anesthesia complication Bleeding disorder Social History Smoking and tobacco status: current every day smoker cigarettes Packs smoked per day: 1 Alcohol intake: former Vitals/I&O/Wt Last Vital Signs Temp 99.0 F 04/09/21 08:47 Pulse 98 04/09/21 08:47 Resp 12 04/09/21 08:47 BP 155/77 04/09/21 08:47 Pulse Ox 97 04/09/21 08:47 Weight last 48 hrs Weight 200 lb Physical Exam Const: COMMON NORMALS: no acute distress, average body habitus, patient oriented x3 and well nourished HENMT: COMMON NORMALS: normocephalic, atraumatic and hearing grossly normal bilaterally HEAD & SCALP: normocephalic and atraumatic Chest: COMMONS NORMALS: normal palpation of entire chest wall Resp: COMMON NORMALS: normal respiratory effort, No retractions, No use of accessory muscles, clear to auscultation bilaterally and percussion normal EFFORT & INSPECTION: Yes able to speak in complete sentences AUSCULTATION: clear to auscultation bilaterally PERCUSSION: percussion normal Cardio: COMMON NORMALS: regular rate, regular rhythm, S1 normal heart sound present and No murmurs present (Cardio) RATE: regular rate RHYTHM: regular rhythm HEART SOUNDS: S1 normal heart sound present GI: COMMON NORMALS: Normal to inspection, nondistended, normoactive bowel sounds present Extremity: OTHER: Refers ulcer of the plantar aspect over the fifth metatarsal head. There is cellulitis to the mid forefoot. There is periwound callus. Neuro: COMMON NORMALS: patient oriented x3 Data Micro: Micro: Microbiology 04/09/21 10:38 Blood Culture - Pr eliminary Blood SPECIMEN COLLE LINDA 04/09/21 10:35 Blood Culture - Pr eliminary Blood SPECIMEN [facility] A&P Assessment and plan (1) Osteomyelitis of left foot: Osteomyelitis involving the left fifth metatarsal head with proximal phalanx fracture Vancomycin and Zosyn have been initiated. I have conferred with my colleague Dr. Gaston. I spoken frankly Mr. Ballard concerning the findings and the need for surgical intervention which I believe will involve fifth toe amputation as well as resection of at least the distal portion of the left fifth metatarsal. This is been recommended as he has been under aggressive medical antibiotic and hyperbaric therapy through wound care services for quite some time and now has refractory and recalcitrant osteomyelitis and wound progression. Rationale for my recommendations was carefully discussed and questions answered. And he is in agreement. There also may require some debridement and potential resection of a portion of the fourth metatarsal in relation to the findings from the recent CT scan. Status: Acute Qualifiers: Osteomyelitis type: other acute Qualified Code(s): M86.172 - Other acute osteomyelitis, left ankle and foot Consult Attestations Medical Necessity Statement: Refractory osteomyelitis with recalcitrant wound and cellulitis Time Spent in Patient Care: 16 - 35 minutes Coding Level of Care Code Acute [employer] And Former for [facility] Luis Diagnoses Osteomyelitis of left foot M86.172 Osteomyelitis type: other acute
[2021-04-09 16:47] VITALS: BP 133/82; PULSE 80; RESP 16; O2SAT 98
[2021-04-09] MEDS: metoprolol tartrate 25 mg Tablet PO (18:24)
[2021-04-09] MEDS: duloxetine 60 mg Capsule PO (18:24)
[2021-04-09] MEDS: gabapentin 400 mg Capsule PO (18:24)
[2021-04-09] MEDS: sodium chloride 0.9% 1,000 ML 75 ML IV (18:25)
[2021-04-09] MEDS: vancomycin 1,500 MG/300 ML PIGGYBACK 200 MG IV (18:25)
[2021-04-09 18:29] VITALS: RESP 18; O2SAT 98
[2021-04-09] MEDS: oxyCODONE 5 mg IR Tab/Cap PO (18:29)
[2021-04-09 20:00] VITALS: BP 131/71; PULSE 85; RESP 17; TEMP 36.9; O2SAT 95
[2021-04-09 21:13] LABS: Glucose Point of Care 284 mg/dL (70-110)
[2021-04-09] MEDS: insulin glargine 100 units/1 mL 20 UNIT SUBCUT (21:17)
[2021-04-09] MEDS: piperacillin-tazobactam 3.375 GM in sodium chloride 0.9% (plus) 50 ML IV (21:18)
[2021-04-09] MEDS: atorvastatin 40 mg Tablet PO (21:18)
[2021-04-09] MEDS: insulin lispro 100 unit/1 mL SUBCUT ×2 (21:28→21:30)
[2021-04-10] VITALS (17 sets, daily range): BP systolic 88–149; BP diastolic 55–85; PULSE 64–88; RESP 14–18; TEMP 36.1–37.3; O2SAT 92–98
--- NOTE | 2021-04-10 00:58 | PC.NURSE ---
1930 Pt sleeping in bed. Resp e/u. IV infusing without diff. No distress.
--- NOTE | 2021-04-10 00:58 | PC.NURSE ---
2030 Awake sitting on side of bed. Requests snack and phone charge. Both given. POC explained to pt about NPO after midnight for surgery in am. Voices understanding. Chux pad to under left foot to catch any drainage. Dry at present.
--- NOTE | 2021-04-10 01:00 | PC.NURSE ---
2230 Pt reports IV fell out. Min bleeding noted to left AC. Cathalon intact. Snack given of lawanda per pt request.
--- NOTE | 2021-04-10 01:02 | PC.NURSE ---
2350 Pt resting in bed. No distress. IV infusing without diff.
[2021-04-10] MEDS: piperacillin-tazobactam 3.375 GM in sodium chloride 0.9% (plus) 50 ML IV ×3 (04:00→18:36)
[2021-04-10 04:59] LABS: Basophils # 0.1 10^3/uL (0.0-0.1); Eosinophils # 0.5 10^3/uL (0.0-0.8); Eosinophils % 4.2 %; Hematocrit 35.1 % (42.0-52.0); Hemoglobin 11.4 g/dL (11.7-16.6); Lymphocytes # 2.2 10^3/uL (0.8-4.8); Mean Corpuscular HGB Conc 32.5 g/dL (30.0-36.0); Mean Corpuscular Hemoglobin 29.6 pg (28.0-34.0); Mean Corpuscular Volume 91.2 fl (80-94); Monocytes # 1.3 10^3/uL (0.2-0.9); Monocytes % 11.1 %; Neutrophils # 7.28 10^3/uL (1.8-7.7); Neutrophils % 64.3 %; Nucleated Red Blood Cells % 0 %; Platelet Count 393 10^3/cmm (130-400); Red Blood Count 3.85 10^6/uL (4.1-5.3); White Blood Count 11.3 10^3/uL (4.0-10.0)
[2021-04-10 05:21] LABS: Anion Gap 15.9 (5-19); Blood Urea Nitrogen 16 mg/dL (8-23); Carbon Dioxide 25 mmol/L (22-29); Chloride 102 mmol/L (98-107); Glucose 194 mg/dL (65-115); Osmolality Calculated 292 mOsm/kg (285-295); Potassium 4.9 mmol/L (3.5-5.1); Sodium 138 mmol/L (136-145)
[2021-04-10 05:36] LABS: Erythrocyte Sedimentation Rate 70 mm/hr (0-10)
[2021-04-10] MEDS: oxyCODONE 5 mg IR Tab/Cap PO ×2 (06:08→21:54)
[2021-04-10] MEDS: vancomycin 1,500 MG/300 ML PIGGYBACK 200 MG IV (06:08)
[2021-04-10] MEDS: aspirin 325 mg Tablet PO (06:08)
[2021-04-10 06:42] LABS: Glucose Point of Care 192 mg/dL (70-110)
--- NOTE | 2021-04-10 07:58 | PM.PN ---
Subjective Subjective: Interval history: No complaints this morning on rounds. States he slept well. Afebrile. Vital signs stable. Nursing service performing initial morning rounds in his room at the time of my visit. Dressing in place on left foot. Vitals/I&O/Wt Last Vital Signs Temp 98.6 F 04/10/21 04:00 Pulse 80 04/10/21 04:00 Resp 18 04/10/21 06:08 BP 121/72 04/10/21 04:00 Pulse Ox 95 04/10/21 04:00 04/09/21 04/10/21 04/10/21 22:59 06:59 14:59 Intake Total 790 / 790 50 / 840 Output Total 350 / 350 Balance 790 / 790 -300 / 490 Weight last 48 hrs Weight 200 lb Physical Exam Extremity: OTHER: Wet-to-dry dressing in place on left foot. I did not remove the wrap this morning. Data : 04/10/21 04:30 04/10/21 04:30 Micro: Microbiology 04/09/21 10:38 Blood Culture - Preliminary Blood SPECIMEN COLLECTED 04/09/21 10:35 Blood Culture - Preliminary Blood SPECIMEN COLLECTED A&P Assessment and plan (1) Osteomyelitis of left foot: We will plan to proceed with debridement in the OR suites midday. As discussed with him previously yesterday, this will include left fifth toe amputation and resection of at least the distal portion of the left fifth metatarsal which has shown substantial bony destruction from osteomyelitis. It also appears to possibly be some early destruction in the distal aspect of the left fourth metatarsal and this may require resective therapy as well. Mr. Ballard is aware that the subsequent outcome of his foot remains in question as far as functionality and may require further definitive surgeries. Status: Acute Qualifiers: Osteomyelitis type: other acute Qualified Code(s): M86.172 - Other acute osteomyelitis, left ankle and foot Attestations Medical Necessity Statement*: Progressive osteomyelitis left fifth metatarsal with associated cellulitis Time Spent in Patient Care: less than 15 minutes Coding Level of Care Code Acute Personal Computer Network Analyst for [facility] Fw Diagnoses Osteomyelitis of left foot M86.172 Osteomyelitis type: other acute
[2021-04-10] MEDS: duloxetine 60 mg Capsule PO ×2 (09:07→17:20)
[2021-04-10] MEDS: metoprolol tartrate 25 mg Tablet PO ×2 (09:07→17:20)
[2021-04-10] MEDS: gabapentin 400 mg Capsule PO ×2 (09:07→17:20)
[2021-04-10 12:05] LABS: Glucose Point of Care 176 mg/dL (70-110)
--- NOTE | 2021-04-10 12:55 | P.ANESASSM_ITS ---
Pre-Anesthetic Assessment Pre-Anesthetic Assessment: Height/Weight: Height 1.75 m Weight 90.718 kg Temp Pulse Resp BP Pulse Ox 99.1 F 68 18 104/66 96 04/10/21 12:39 04/10/21 12:39 04/10/21 12:39 04/10/21 12:39 04/10/21 12:39 Preop Diagnosis: Left foot wound Proposed Procedure: Operation Date: 04/10/21 11:50 Proposed Procedures p Possible Amputation Toe/s(Left) - Marquis Tabares MD s Debridement(Left) - Marquis Tabares MD Was Beta Sylvie taken within 24 hours: Yes Was Clonidine taken within 24 hours: N/A Last intake: Intake Last Liquid Date 04/09/21 Last Liquid Time 23:45 Last Solid Date 04/09/21 Last Solid Time 22:45 Social: Social History: Tobacco and No alcohol Exam: Pre-Anes Outpt Exam: alert, oriented x 3 and regular rate & rhythm Airway: Submandibular: WNL Cervical ROM: WNL MP: 2 Dentition: Chipped Pulmonary: Pulmonary: COPD CV/HEM: CV/HEM: HTN Metabolic: Metabolic: DM and Hyperlipidemia Musc/skel: Musc/skel: Lower Back Pain Neuropsych: Neuropsych: Depression Anesthetic Plan: ASA status: 3 Anesthesia: MAC Risk of > 500 ml blood loss (7ml/kg in children): No Meds/Allergies Current Medications: Current Medications Generic Name Dose Route Start Last Admin Trade Name Freq PRN Reason Stop Dose Admin Aspirin 325 mg 04/10/21 06:00 04/10/21 06:08 Aspirin 325 Mg T ablet PO 325 mg QAM BRIANA Administration Atorvastatin Calci um 40 mg 04/09/21 21:00 04/09/21 21:18 Atorvastatin 40 Mg Tablet PO 40 mg BEDTIME BRIANA Administration Duloxetine HCl 60 mg 04/09/21 18:00 04/10/21 09:07 Duloxetine 60 Mg Capsule PO 60 mg BID BRIANA Administration Enoxaparin Sodium 40 mg 04/09/21 18:00 04/09/21 18:25 Enoxaparin 40 Mg /0.4 Ml Syringe SUBCUT Not Given Q24H BRIANA Gabapentin 400 mg 04/09/21 18:00 04/10/21 09:07 Gabapentin 400 M g Capsule PO 400 mg BID BRIANA Administration Piperacillin Sod/T azobactam 50 mls @ 12.5 mls /hr 04/09/21 19:00 04/10/21 10:18 Sod 3.375 gm/ So dium Chloride IV 12.5 mls/hr Q8H BRIANA Administration Protocol Sodium Chloride 1,000 mls @ 75 ml s/hr 04/09/21 17:37 04/10/21 09:18 Sodium Chloride 0.9% IV Infused .[id number] BRIANA Infusion Vancomycin/PEG/NAD A/Lysine/Water 1,500 mg in 300 m ls @ 200 mls/hr 04/09/21 18:00 04/10/21 09:06 Vancocin IV Infused Q12H BRIANA Infusion Insulin Glargine 20 unit 04/09/21 21:00 04/09/21 21:17 Insulin Glargine 100 Units/1 Ml SUBCUT 20 unit BEDTIME BRIANA Administration Insulin Human Lisp ro 0 unit 04/09/21 18:00 04/10/21 09:04 Insulin Lispro 1 00 Unit/1 Ml SUBCUT Not Given WM&BEDTIME BRIANA Protocol Metoprolol Tartrat e 25 mg 04/09/21 18:00 04/10/21 09:07 Metoprolol Tartr ate 25 Mg Tablet PO 25 mg BID BRIANA Administration Oxycodone HCl 5 mg 04/09/21 17:37 04/10/21 06:08 Oxycodone 5 Mg I r Tab/Cap PO 5 mg Q6H PRN Administration SEVERE PAIN PFSH Anesthesia PFSH: Medical History Controlled type 2 diabetes mellitus, with long-term current use of insulin Dry gangrene Dyslipidemia Essential hypertension HTN (hypertension), benign Hypotestosteronemia in male Low back pain radiating down leg Major depressive disorder Tobacco dependency Surgical History History of amputation of toe Right second and left second and third History of eye surgery History of incision and drainage left foot History of total left hip arthroplasty Status post vasectomy Family History Father CAD (coronary artery disease) Diabetes Mother Cancer Chronic kidney disease (CKD) Diabetes Lung disease Grandmother Dementia Stroke Family/Other Suicide Other Hypertension Denies family history of Clotting disorder Anesthesia complication Bleeding disorder Social History Smoking and tobacco status: current every day smoker cigarettes Packs smoked per day: 1 Alcohol intake: former Data Anesthesia CBC & Chem 7: 04/10/21 04:30 04/10/21 04:30 Other Labs: Laboratory Results - last 48 hr 04/09/21 04/09/21 04/09/21 10:35 10:35 10:36 WBC 12.1 H RBC 3.85 L Hgb 11.5 L Hct 35.3 L MCV 91.7 MCH 29.9 MCHC 32.6 RDW 12.2 Plt Count 368 MPV 10.9 H Neut % (Auto) 73.2 Lymph % (Auto) 11.5 [place] % (Auto) 11.4 Eos % (Auto) 2.7 Baso % (Auto) 0.8 Neut # (Auto) 8.83 H Lymph # (Auto) 1.4 [place] # (Auto) 1.4 H Eos # (Auto) 0.3 Baso # (Auto) 0.1 Nucleated RBC % (auto) 0 Nucleated RBCs # 0.0 ESR Sodium 132 L Potassium 5.2 H Chloride 97 L Carbon Dioxide 26 Anion Gap 14.2 BUN 16 Creatinine 1.0 GFR Calculation 76.0 L Glucose 415 H POC Glucose Calculated Osmolality 293 Lactic Acid Calcium 8.6 Total Bilirubin 0.2 AST 14 ALT 15 Alkaline Phosphatase 57 C-Reactive Protein 65.5 H Total Protein 7.1 Albumin 3.2 L Globulin 3.9 04/09/21 04/09/21 04/10/21 10:59 20:59 04:30 WBC 11.3 H RBC 3.85 L Hgb 11.4 L Hct 35.1 L MCV 91.2 MCH 29.6 MCHC 32.5 RDW 12.0 L Plt Count 393 MPV 11.0 H Neut % (Auto) 64.3 Lymph % (Auto) 19.0 [place] % (Auto) 11.1 Eos % (Auto) 4.2 Baso % (Auto) 1.0 Neut # (Auto) 7.28 Lymph # (Auto) 2.2 [place] # (Auto) 1.3 H Eos # (Auto) 0.5 Baso # (Auto) 0.1 Nucleated RBC % (auto) 0 Nucleated RBCs # 0.0 ESR 70 H Sodium Potassium Chloride Carbon Dioxide Anion Gap BUN Creatinine GFR Calculation Glucose POC Glucose 284 H Calculated Osmolality Lactic Acid 1.3 Calcium Total Bilirubin AST ALT Alkaline Phosphatase C-Reactive Protein Total Protein Albumin Globulin 04/10/21 04/10/21 04/10/21 04:30 06:26 11:14 WBC RBC Hgb Hct MCV MCH MCHC RDW Plt Count MPV Neut % (Auto) Lymph % (Auto) [place] % (Auto) Eos % (Auto) Baso % (Auto) Neut # (Auto) Lymph # (Auto) [place] # (Auto) Eos # (Auto) Baso # (Auto) Nucleated RBC % (auto) Nucleated RBCs # ESR Sodium 138 Potassium 4.9 Chloride 102 Carbon Dioxide 25 Anion Gap 15.9 BUN 16 Creatinine 1.0 GFR Calculation 76.0 L Glucose 194 H POC Glucose 192 H 176 H Calculated Osmolality 292 Lactic Acid Calcium 9.0 Total Bilirubin AST ALT Alkaline Phosphatase C-Reactive Protein Total Protein Albumin Globulin Micro: Microbiology 04/09/21 10:38 Blood Culture - Preliminary Blood NEGATIVE TO DATE 04/09/21 10:35 Blood Culture - Preliminary Blood NEGATIVE TO DATE Cardiac Studies: No Data to Display
[2021-04-10] MEDS: HYDROmorphone 1 mg/mL INJ 1 mL 0.5 MG IVP (13:15)
[2021-04-10] MEDS: ceFAZolin 1,000 mg SDV 1000 MG IRRIGATION (14:07)
--- NOTE | 2021-04-10 14:07 | P.PN_ITS ---
Subjective Subjective: Interval history: Seen earlier today. Awaiting surgery. Patient reports pain was better. Medications: Reviewed: Yes Vitals/I&O/Wt Last Vital Signs Temp 99.1 F 04/10/21 12:39 Pulse 68 04/10/21 12:39 Resp 18 04/10/21 13:15 BP 104/66 04/10/21 12:39 Pulse Ox 96 04/10/21 13:15 04/09/21 04/10/21 04/10/21 22:59 06:59 14:59 Intake Total 790 / 790 50 / 840 1350 / 1350 Output Total 350 / 350 Balance 790 / 790 -300 / 490 1350 / 1350 Weight last 48 hrs Weight 90.718 kg Physical Exam Narrative: EXAM NARRATIVE: General exam no distress Neck is supple Cardiovascular regular rate and rhythm Lungs clear Abdomen is soft Extremities no cyanosis clubbing. Left dorsum of foot is less erythematous. Large stage IV decubitus lateral plantar surface still present. Some drainage. Data : 04/10/21 04:30 04/10/21 04:30 Micro: Microbiology 04/09/21 10:38 Blood Culture - Preliminary Blood NEGATIVE TO DATE 04/09/21 10:35 Blood Culture - Preliminary Blood NEGATIVE TO DATE A&P Assessment and plan (1) Osteomyelitis of left foot: Previous involvement of fourth metatarsal New involvement of fifth metatarsal, likely pathologic fracture proximal fifth phalanx Continue vancomycin, Zosyn Appreciate surgical consultation. Surgery planned today. Has had vascular studies approximately 6 months ago which did not demonstrated any large vessel occlusion. CRP and sedimentation rate elevated as suspected. This will be used in follow- up. Note that he had a blood culture obtained on admission. Discussed with surgeon. A PICC line will be placed. Minimum of 2 weeks IV antibiotics will be initiated following discharge. Status: Acute Qualifiers: Osteomyelitis type: other acute Qualified Code(s): M86.172 - Other acute osteomyelitis, left ankle and foot (2) Cellulitis: Antibiotics as above Status: Acute Qualifiers: Laterality: left Site of cellulitis: extremity Site of cellulitis of extremity: lower extremity Qualified Code(s): L03.116 - Cellulitis of left lower limb (3) Poorly controlled diabetes mellitus: Sliding scale insulin. Continue long-acting insulin. Status: Acute (4) Essential hypertension: Continue home meds Status: Chronic Additional A&P Information Mild hyperkalemia, improved History of tobacco dependency. Encourage abstinence. Full code Lovenox for DVT prophylaxis Attestations Medical Necessity Statement*: Needs continued hospitalization for IV antibiotics secondary to osteomyelitis, diabetic foot with need for surgery. Cellulitis is also present. Coding Level of Care Code Acute Healthcare Science Specialist for [facility] Fwd Diagnoses Osteomyelitis of left foot M86.172 Osteomyelitis type: other acute Cellulitis L03.116 Laterality: left Site of cellulitis: extremity Site of cellulitis of extremity: lower extremity Poorly controlled diabetes mellitus E11.65 Essential hypertension I10
[2021-04-10] MEDS: lidocaine 1% INJ 20 mL XX (14:08)
--- NOTE | 2021-04-10 14:41 | ANE.PACU2 ---
Inpatient post-anesthesia follow up: Airway intact: Yes Vital signs: Temperature 97.0 F Pulse Rate 68 Respiratory Rate 14 Blood Pressure 93/59 Pulse Oximetry 96 Oxygen Delivery Me thod Venturi Mask Oxygen Flow Rate 6 Fraction of Inspir ed Oxygen Hydration adequate: Yes Nausea and vomiting: No Pain level: 2 Mental status: Baseline
--- NOTE | 2021-04-10 14:53 | P.OP_ITS ---
Operative Report Date of procedure: April 10, 2021 Pre-op Diagnosis: Left foot diabetic wound with cellulitis Post-op diagnosis: same Procedure Done: Left fifth toe amputation and resection of distal one half of left fifth metatarsal Specimens removed/disposition: Left fifth toe and distal one half of left fifth metatarsal Surgeon: Marquis Tabares Anesthesia: MAC and Local Complications: None Condition: stable Disposition: PACU Brief History: Mr. Ballard is a pleasant 60-year-old diabetic gentleman whose had longstanding diabetic foot wound problems and has been followed extensively by the wound care service, particular over the past year. He presented to the emergency department with worsening pain, drainage, and cellulitis of the left foot with open left fifth metatarsal ulcer. He has known osteomyelitis of the left foot. And subsequent CT scan upon admission confirmed continued destruction of the left fifth metatarsal and some involvement of the distal portion of the left fourth metatarsal. He was placed on vancomycin and Zosyn and I have recommended surgical resection. He has been receiving weekly wound care visits as well as hyperbaric therapy and has had several rounds of a ntibiotics over the past year. Rationale for my recommendation for surgical intervention was frankly discussed and he is keenly aware that there will be at least a portion of his left foot which will be resected due to the continuing bony involvement. Procedure: Mr. Ballard was taken to the operating room theater and underwent conscious sedation with anesthesia monitoring. His entire left foot and lower leg was sterilely prepped and draped. 1% lidocaine was infiltrated as a field block around the left fifth toe and lateral aspect of the foot. #10 scalpel blade was then utilized to incise between the left fifth and fourth toe extend this dorsally and then laterally and across the plantar surface back up to between the fourth and fifth toe. This dissection was continued down through the attached tenderness and ligaments and extended down to approximately the midfoot level laterally. Once I reached the fifth metatarsal, I utilized a julio red saw to perform resection thereby removing this entire specimen en bloc. Cultures were taken and the specimen was then deferred to pathology. Cautery was utilized judiciously to control bleeding points. I elected to further resect a portion of the mid body of the left fifth metatarsal with the oscillating saw until I reached the level which I felt did not represent active infection in the bone. Upon inspection and palpation of the distal aspect of the left fourth metatarsal do not feel the process was nearly as extensive this region and an attempt to preserve as much of the left foot as possible I have elected not to perform further resection at this time, though I realize that if there is failure of medical management, this will be required. My concern was related to further loss of the lateral aspect of his foot which would result in rolling of his foot with ambulation and I believe would create further problems. Our current plan is to place a PICC line and continue with IV antibiotics after discharge. I would recommend continuing HBO treatments as well for what may be residual involvement of the left fourth metatarsal. After completion of resection and confirmation of hemostasis, a wet-to-dry dressing was applied at this time. Mr. Ballard tolerated procedure well and was awakened from conscious sedation. He was then transferred to PACU in stable condition.
[2021-04-10 16:49] LABS: Glucose Point of Care 136 mg/dL (70-110)
[2021-04-10] MEDS: enoxaparin 40 mg/0.4 mL Syringe SUBCUT (17:20)
[2021-04-10 21:09] LABS: Glucose Point of Care 209 mg/dL (70-110)
[2021-04-10] MEDS: insulin glargine 100 units/1 mL 20 UNIT SUBCUT (21:10)
[2021-04-10] MEDS: insulin lispro 100 unit/1 mL SUBCUT (21:10)
[2021-04-10] MEDS: atorvastatin 40 mg Tablet PO (21:10)
[2021-04-10] MEDS: vancomycin 1,250 MG/250 ML PIGGYBACK 200 MG IV (21:54)
[2021-04-10] MEDS: acetaminophen 325 mg Tablet 650 MG PO (23:19)
[2021-04-11] VITALS (9 sets, daily range): BP systolic 116–157; BP diastolic 69–79; PULSE 71–80; RESP 16–20; TEMP 36.4–37.1; O2SAT 90–96
--- NOTE | 2021-04-11 | XR_ITS ---
WS: [id number] Addendum. Additional portable chest has been submitted. This is after adjustment of the PICC line. PICC line is now in appropriate position terminating in the distal SVC. Addendum Dictated By: Bebe Alves DO Addendum Signed By: Bebe Alves DO Signed Date/Time: 04/11/21 1331 Addendum Cosigned By: WS: [id number] PORTABLE CHEST HISTORY: Post PICC COMPARISON: 11/24/2020 Right-sided peripherally inserted line has been inserted. The distal tip of the PICC line projects over the RIGHT atrium. Recommend retracting at least 7 cm. Lungs are clear and well expanded. No pleural effusion or pneumothorax. Cardiac size: Mildly enlarged cardiac silhouette. Mediastinum/Aorta: Mild atherosclerosis aorta. No osseous abnormality seen. XR/XR chest 1V portable [id number] IMPRESSION: Interval insertion of a RIGHT PICC line needs to be retracted 7 cm for more optimal positioning. Dictated By:Bebe Alves DO Signed By: Bebe Alves DO Signed Date/Time: 04/11/21 1316 [facility]
--- NOTE | 2021-04-11 01:59 | PC.NURSE ---
0130 Awake in bed watching tv. No distress. Dressing to left foot D/I.
[2021-04-11] MEDS: piperacillin-tazobactam 3.375 GM in sodium chloride 0.9% (plus) 50 ML IV ×2 (03:39→14:11)
[2021-04-11] MEDS: oxyCODONE 5 mg IR Tab/Cap PO ×2 (03:57→16:12)
--- NOTE | 2021-04-11 04:01 | PC.NURSE ---
0330 Pt reports left foot pain. Dressing D/I. color pink above and below dressing. Informed pt he could have next pain med dose in 15 minutes.
[2021-04-11] MEDS: aspirin 325 mg Tablet PO (05:34)
--- NOTE | 2021-04-11 05:53 | PC.NURSE ---
6283 Dr. Tabares at bedside, removes left foot dressing. Mod amt of blood noted to 4x4s. wound bed pink. wet to dry dressing reapplied per Dr. Tabares. Secured with randy wrap. Tolerates well. POC discussed by Dr. Tabares with pt. Discussed mobility options for discharge. Dr. Tabares requests knee scooter for pt at discharge.
[2021-04-11 06:11] LABS: Basophils # 0.1 10^3/uL (0.0-0.1); Eosinophils # 0.4 10^3/uL (0.0-0.8); Eosinophils % 3.5 %; Hematocrit 35.3 % (42.0-52.0); Hemoglobin 11.2 g/dL (11.7-16.6); Lymphocytes % 18.4 %; Mean Corpuscular HGB Conc 31.7 g/dL (30.0-36.0); Mean Corpuscular Hemoglobin 29.6 pg (28.0-34.0); Mean Corpuscular Volume 93.4 fl (80-94); Monocytes # 1.3 10^3/uL (0.2-0.9); Monocytes % 11.6 %; Neutrophils % 64.9 %; Nucleated Red Blood Cells % 0 %; Platelet Count 369 10^3/cmm (130-400); Red Blood Count 3.78 10^6/uL (4.1-5.3); White Blood Count 10.8 10^3/uL (4.0-10.0)
[2021-04-11 06:27] LABS: Blood Urea Nitrogen 17 mg/dL (8-23); Calcium 8.4 mg/dL (8.5-10.5); Carbon Dioxide 22 mmol/L (22-29); Chloride 102 mmol/L (98-107); Glomerular Filtration Rate 68.1 mL/min (90-130); Glucose 244 mg/dL (65-115); Osmolality Calculated 288 mOsm/kg (285-295); Sodium 134 mmol/L (136-145)
[2021-04-11 06:34] LABS: Anion Gap 15.1 (5-19); Potassium 5.1 mmol/L (3.5-5.1)
[2021-04-11 06:44] LABS: Glucose Point of Care 236 mg/dL (70-110)
[2021-04-11] MEDS: oxyCODONE-APAP 5-325 mg Tablet 1 TAB PO (09:04)
[2021-04-11] MEDS: insulin lispro 100 unit/1 mL SUBCUT ×4 (09:04→20:58)
[2021-04-11] MEDS: duloxetine 60 mg Capsule PO ×2 (09:05→17:40)
[2021-04-11] MEDS: metoprolol tartrate 25 mg Tablet PO ×2 (09:05→17:40)
[2021-04-11] MEDS: gabapentin 400 mg Capsule PO ×2 (09:05→17:40)
[2021-04-11] MEDS: vancomycin 1,250 MG/250 ML PIGGYBACK 200 MG IV (10:22)
[2021-04-11 12:10] LABS: Glucose Point of Care 163 mg/dL (70-110)
--- NOTE | 2021-04-11 13:07 | XR_ITS ---
WS: [id number] PORTABLE CHEST HISTORY: Post PICC COMPARISON: 11/24/2020 Right-sided peripherally inserted line has been inserted. The distal tip of the PICC line projects ov er the RIGHT atrium. Recommend retracting at least 7 cm. Lungs are clear and well expanded. No pleural effusion or pneumothorax. Cardiac size: Mildly enlarged cardiac silhouette. Mediastinum/Aorta: Mild atherosclerosis aorta. No osseous abnormality seen. XR/XR chest 1V portable [id number] IMPRESSION: Interval insertion of a RIGHT PICC line needs to be retracted 7 cm for more opt imal positioning.
--- NOTE | 2021-04-11 15:08 | PM.PN ---
Documented by User: MICHAEL Quinonez [email or web address] 04/11/21 15:20 Subjective Subjective: Interval history: Marquis underwent left foot surgery yesterday and was in some pain this morning. He feels gassy but denies diarrhea, fevers, and chills. Vitals/I&O/Wt Last Vital Signs Temp 97.6 F 04/11/21 12:00 Pulse 75 04/11/21 12:00 Resp 16 04/11/21 12:00 BP 144/71 04/11/21 12:00 Pulse Ox 90 04/11/21 12:00 04/11/21 04/11/21 04/11/21 06:59 14:59 22:59 Intake Total 700 / 3180 660 / 660 Output Total 800 / 1110 300 / 300 Balance -100 / 2070 360 / 360 Physical Exam Narrative: EXAM NARRATIVE: General: no distress Neck: supple Cardiovascular: regular rate and rhythm, no murmurs Lungs: clear Abdomen: soft, nontender, nondistended Extremities: no cyanosis or clubbing. Left foot wrapped in clean dry dressing. Data : 04/11/21 04:58 04/11/21 04:58 Micro: Microbiology 04/10/21 14:04 Gram Stain - Final Toe - #1 Wound Culture - Preliminary Gram Negative Rods 04/09/21 10:38 Blood Culture - Preliminary Blood NEGATIVE TO DATE 04/09/21 10:35 Blood Culture - Preliminary Blood NEGATIVE TO DATE A&P Additional A&P Information (1) Osteomyelitis of left foot: Previous involvement of fourth metatarsal New involvement of fifth metatarsal, likely pathologic fracture proximal fifth phalanx Continue vancomycin, Zosyn Appreciate surgical consultation. Surgery was performed yesterday. Has had vascular studies approximately 6 months ago which did not demonstrated any large vessel occlusion. CRP and sedimentation rate elevated as suspected. This will be used in follow-up. Blood culture on admission negative to date. Wound culture of left toe growing GNR. PICC line was placed today. He will be discharged likely tomorrow on IV vancomycin and IV cefepime until ID appointment on 04/24/21 when his antibiotic needs will be re-evaluated. He will be discharged home with a knee scooter. Status: Acute Qualifiers: Osteomyelitis type: other acute Qualified Code(s): M86.172 - Other acute osteomyelitis, left ankle and foot (2) Cellulitis: Antibiotics as above Status: Acute Qualifiers: Laterality: left Site of cellulitis: extremity Site of cellulitis of extremity: lower extremity Qualified Code(s): L03.116 - Cellulitis of left lower limb (3) Poorly controlled diabetes mellitus: Sliding scale insulin. Continue long-acting insulin. Status: Acute (4) Essential hypertension: Continue home meds Status: Chronic Coding Level of Care Code Acute Photo Mask Inspector for [facility] Documented by User: Armen Gaston MD 04/11/21 15:23 Subjective Subjective: Interval history: Agree with above, no changes needed Medications: Reviewed: Yes Physical Exam Narrative: EXAM NARRATIVE: Agree with above. No changes needed. I examined the patient as well. Data : 04/11/21 04:58 04/11/21 04:58 A&P Additional A&P Information Agree with above. Patient is postoperative day #1 and doing well. Plan is for discharge tomorrow, on vancomycin and cefepime. He will have follow-up in the infectious disease clinic on April 24, and further adjustments of antibiotic will be made based on culture results. Attestations Medical Necessity Statement*: Needs continued hospitalization for IV antibiotics secondary to osteomyelitis left lower extremity. Coding Level of Care Code Acute Photo Mask Inspector for [facility]
[2021-04-11] MEDS: cefepime 2,000 MG in sodium chloride 0.9% (plus) 50 ML 100 MG IV (16:13)
[2021-04-11 17:26] LABS: Glucose Point of Care 281 mg/dL (70-110)
[2021-04-11] MEDS: enoxaparin 40 mg/0.4 mL Syringe SUBCUT (17:41)
[2021-04-11] MEDS: acetaminophen 325 mg Tablet 650 MG PO (17:45)
[2021-04-11 20:03] LABS: Glucose Point of Care 239 mg/dL (70-110)
[2021-04-11] MEDS: atorvastatin 40 mg Tablet PO (20:58)
[2021-04-11] MEDS: insulin glargine 100 units/1 mL 20 UNIT SUBCUT (20:59)
[2021-04-11 21:18] LABS: Vancomycin Trough 20.9 ug/mL (10-15)
--- NOTE | 2021-04-11 22:26 | PC.PHAR ---
Vancomycin trough on dosage of 1250mg IVPB every 12 hours is 20.9. Vancomycin is held for next two doses then resumed at 1gm IVPB every 12 hours with a trough to be obtained before the fourth 1gm dose.
[2021-04-12 03:49] VITALS: BP 144/74; PULSE 75; RESP 19; TEMP 36.7; O2SAT 95
[2021-04-12] MEDS: cefepime 2,000 MG in sodium chloride 0.9% (plus) 50 ML 100 MG IV ×2 (03:50→12:12)
[2021-04-12 03:51] VITALS: RESP 16; O2SAT 95
[2021-04-12] MEDS: oxyCODONE-APAP 5-325 mg Tablet 1 TAB PO (03:51)
[2021-04-12] MEDS: aspirin 325 mg Tablet PO (05:16)
[2021-04-12 06:40] LABS: Glucose Point of Care 186 mg/dL (70-110)
[2021-04-12 07:57] VITALS: BP 152/76; PULSE 70; RESP 17; TEMP 36.5; O2SAT 95
[2021-04-12] MEDS: duloxetine 60 mg Capsule PO (08:08)
[2021-04-12] MEDS: gabapentin 400 mg Capsule PO ×2 (08:08→16:58)
[2021-04-12] MEDS: metoprolol tartrate 25 mg Tablet PO ×2 (08:08→16:58)
[2021-04-12] MEDS: insulin lispro 100 unit/1 mL SUBCUT ×2 (08:44→12:20)
--- NOTE | 2021-04-12 10:19 | P.DS_ITS ---
Discharge Providers Date of Admission: 04/09/21 12:16 Date of Discharge: April 12, 2021 Attending Provider at Admission: Armen Gaston MD Attending Provider at Discharge: Armen Gaston MD Primary Care Provider: Juany Guajardo DO Diagnoses at Discharge Discharge Diagnosis (1) Osteomyelitis of left foot: Status: Acute Qualifiers: Osteomyelitis type: other acute Qualified Code(s): M86.172 - Other acute osteomyelitis, left ankle and foot (2) Cellulitis: Status: Acute (3) Poorly controlled diabetes mellitus: Status: Acute (4) Essential hypertension: Status: Chronic Reason for Visit Reason for Visit: OSTEOMYELITIS L LOWER LEG Hospital Course Hospital Course Marquis is a 60-year-old white male who presented with a diabetic foot ulcer on the left and evidence of osteomyelitis of his fourth and fifth metatarsals. He was placed on IV antibiotics consisting of vancomycin and Zosyn. Vascular surgery/wound clinic was consulted regarding his case. On April 10 he underwent a left fifth toe amputation and resection of the distal one half of the left fifth metatarsal. He tolerated the surgery well. While inpatient his cellulitis went away. I discussed this case briefly with infectious disease who will be following him up as an outpatient. He will discharge on cefepime, vancomycin. Cefepime minimum of 2 weeks although this may be amended and vancomycin likely longer. For start it was written for 4 weeks. Wound culture at discharge demonstrated rare gram-negative rods. Incidentally, 1 bottle out of 4 started growing gram-positive rods out of blood on discharge. Repeat blood culture will be done but this is likely contaminant. He will follow-up with wound care, infectious disease, his primary care provider. He will get CBC and CMP weekly, and vancomycin trough prior to his fourth dose and then as needed per pharmacy dosing. Physical Exam Narrative: EXAM NARRATIVE: General exam no distress Neck is supple Cardiovascular regular rate and rhythm Lungs clear Abdomen is soft Extremities no cyanosis clubbing. Erythema gone left lower extremity over shearer. Dressing intact, dry and clean. Discharge Data Data Completed and Pending: Completed Studies During Hospitalization Category Date Time Status CT foot LT w con [id number] Stat Cat Scan 04/09/21 09:57 Completed CXRP [XR chest 1V portable [id number]] R outine Exams 04/11/21 12:30 Completed CXRP [XR chest 1V portable [id number]] R outine Exams 04/11/21 13:07 Completed XR foot LT min 3V * [id number] Stat Exams 04/09/21 09:54 Completed Pending at discharge Category Date Time Status Anaerobic Culture Routine Lab 04/10/21 Received Blood Culture Sta t Lab 04/09/21 10:38 Results Vancomycin Trough Timed Lab 04/14/21 09:00 Ordered Wound Culture and Gram Stain Routin e Lab 04/10/21 14:04 Results Pathology: Surgic al [PTH] Routine Pth 04/10/21 14:23 Received Labs from last 24 hours 04/12/21 04/11/21 04/11/21 06:19 20:35 19:57 POC Glucose 186 H 239 H Vancomycin Trough 20.9 H 04/11/21 04/11/21 17:20 12:05 POC Glucose 281 H 163 H Vancomycin Trough Vitals: Last Vital Signs Temp 97.7 F 04/12/21 07:57 Pulse 70 04/12/21 07:57 Resp 17 04/12/21 07:57 BP 152/76 04/12/21 07:57 Pulse Ox 95 04/12/21 07:57 Discharge Plan Discharge Patient Disposition: Home Health Service Condition: Stable Prescriptions: New oxycodone-acetaminophen 5-325 mg Tablet 1 tab PO Q6H PRN (Reason: Moderate Pain) Qty: 20 RF: 0 Continued Tresiba FlexTouch U-100 100 unit/mL (3 mL) insulin pen 32 unit SUBCUT QAM RF: 0 metoprolol tartrate 25 mg tablet 25 mg PO BID Qty: 180 RF: 3 methocarbamol 500 mg tablet 500 mg PO BID PRN (Reason: pain) Qty: 60 RF: 2 (DME) OneTouch Ultra Test Strip See Rx Instructions .Route Qty: 300 RF: 3 multivitamin Tablet 1 tab PO DAILY RF: 0 beta carotene 25,000 unit Capsule 25,000 unit PO BID RF: 0 cholecalciferol (vitamin D3) [Vitamin D3] 25 mcg (1,000 unit) Capsule 25 mcg PO QAM RF: 0 acetaminophen [Tylenol Extra Strength] 500 mg Tablet 500 mg PO TID PRN (Reason: Pain) Qty: 0 RF: 0 insulin aspart U-100 [Novolog Flexpen U-100 Insulin] 100 unit/mL (3 mL) insulin pen See Rx Instructions .ROUTE .COMPLEX RF: 0 cyanocobalamin (vitamin B-12) [Vitamin B-12] 100 mcg Tablet 100 mcg PO DAILY RF: 0 coenzyme Q10 [CoQ-10] 100 mg Capsule 100 mg PO DAILY RF: 0 ascorbic acid (vitamin C) [Vitamin C] 1,000 mg Tablet 1 g PO QAM RF: 0 atorvastatin 40 mg tablet 40 mg PO BEDTIME RF: 0 gabapentin 400 mg capsule 400 mg PO BID RF: 0 duloxetine 60 mg capsule,delayed release(DR/EC) 60 mg PO BID RF: 0 fenofibrate nanocrystallized 145 mg tablet 145 mg PO BEDTIME RF: 0 aspirin 325 mg Tablet 325 mg PO QAM RF: 0 metformin 1,000 mg tablet 1,000 mg PO BID RF: 0 Victoza 3-John 0.6 mg/0.1 mL (18 mg/3 mL) pen injector 1.8 mg SUBCUT QAM RF: 0 Discontinued lisinopril 5 mg tablet 5 mg PO QAM RF: 0 Discharge Orders: Discharge Order (Routine); Ordered 04/12/21 Ordered By: Armen Gaston Other Ambulatory Orders: DME: Miscellaneous (Order) Location: None Selected Ordered By: Armen Gaston [place] [facility] [place] [facility] [place] [Outside] Belén Champion MD [Hospitalist] - (follow up 04/24, please make sure patient scheduled) Juany Guajardo DO [Primary Care Provider] - 4-7 days WOUND CARE CLINIC, [Staff Physician] - 04/16/21 8:00 am (Follow up with Dr. Tabares per his instructions.) Discharge Diet: Diabetic Discharge Activity: Increase activity as tolerated Patient Instructions: Opioid Safety Activity Restrictions/Additional Instructions: He will be taking cefepime 2 g IV every 12 hours until April 24 or until amended by infectious disease Vancomycin 1250 mg IV every 12 hours until April 13, or until amended by infectious disease Arrange for CBC, [facility] weekly Pharmacy to obtain vancomycin trough prior to fourth dose, and then as per their recommendations. Send these to infectious disease clinic, Dr. Champion Follow-up with infectious disease Take all medicine as prescribed Follow-up with wound clinic per their instructions May discharge after his afternoon dose of antibiotics. Discharge Attestations Time Spent in Discharge Care*: greater than 30 min Status at Discharge: Cognitive status at discharge: cognitively intact , Behavioral status at discharge: cooperative , Quality Metrics Clinical Quality Measures During this hospital stay, did patient experience: None Coding Level of Care Code Acute Chg FW DC note Diagnoses Osteomyelitis of left foot M86.172 Osteomyelitis type: other acute Cellulitis L03.90 Poorly controlled diabetes mellitus E11.65 Essential hypertension I10
[2021-04-12 10:36] VITALS: RESP 18
[2021-04-12] MEDS: oxyCODONE 5 mg IR Tab/Cap PO (10:36)
[2021-04-12] MEDS: vancomycin 1,000 MG in sodium chloride 0.9% 250 ML 250 MG IV (10:36)
[2021-04-12 11:03] LABS: Glucose Point of Care 244 mg/dL (70-110)
[2021-04-12 11:57] VITALS: BP 136/75; PULSE 70; RESP 18; TEMP 36.6; O2SAT 95
--- NOTE | 2021-04-12 14:09 | PC.SOCIAL ---
Due to [place] not being able to get to pts house until 12 tomorrow, write spoke with Rj in pharmacy, pharmacy states that pt can get Vanc at 1700 and Cefepime at 1715, 1/2 a dose and still remain therapeutic and not recieve antibiotic doses until 12 tomorrow when [place] can deliver. Spoke with pt on plan for medications and discharge. This info relayed to pts nurse Natasha, charge nurse Lorraine, Dr. Gaston, and [place], case management.
[2021-04-12] MEDS: vancomycin 750 MG in sodium chloride 0.9% 250 ML 250 MG IV (16:28)
[2021-04-12] MEDS: cefepime 1,000 MG in sodium chloride 0.9% (plus) 50 ML 100 MG IV (16:56)
== END 2021-04-12 18:39 | disposition home health service (06) | DRG 617 ==
LOC: ER 14:13 → MEDSURG 04-10 00:20
PROVIDERS: Thoracic Surgery (Cardiothoracic Vascular Surgery); Admitting Provider Internal Medicine; Emergency Provider Family Medicine; PCP Family Medicine; Visit Provider Internal Medicine
PROC: 0Y6N0ZF Detachment at Left Foot, Partial 5th Ray, Open Approach (ICD-10-PCS; principal; 2021-04-10 11:40)
PROC: 0Y6N0ZF Detachment at Left Foot, Partial 5th Ray, Open Approach (ICD-10-PCS; 2021-04-10 11:40)
DX: E11.69 Type 2 diabetes mellitus with other specified complication (principal); L03.116 Cellulitis of left lower limb; M86.172 Other acute osteomyelitis, left ankle and foot; L97.526 Non-pressure chronic ulcer of other part of left foot with bone involvement without evidence of necrosis; M84.675A Pathological fracture in other disease, left foot, initial encounter for fracture; E11.621 Type 2 diabetes mellitus with foot ulcer; E11.65 Type 2 diabetes mellitus with hyperglycemia; I10 Essential (primary) hypertension; Z79.4 Long term (current) use of insulin; F17.210 Nicotine dependence, cigarettes, uncomplicated; Z89.411 Acquired absence of right great toe; Z89.422 Acquired absence of other left toe(s); Z79.84 Long term (current) use of oral hypoglycemic drugs; Z79.82 Long term (current) use of aspirin; E78.5 Hyperlipidemia, unspecified; E87.5 Hyperkalemia; E11.628 Type 2 diabetes mellitus with other skin complications; B96.89 Other specified bacterial agents as the cause of diseases classified elsewhere; Z79.899 Other long term (current) drug therapy
CPT/HCPCS: 12345; 36415; 36416; 36569; 36592; 71045; 73630; 73701; 80048; 80053; 80202; 82962; 83605; 85025; 85651; 86140; 87040; 87070; 87075; 87077; 87186; 87205; 88305; 88311; 93005; 96365; 96372; 97116; 97161; 99285; J0690; J0692; J1170; J1650; J1815 ×2; J2250; J2543; J2704; J3010; J3370; J7030; J7050; Q9967

== ENCOUNTER 2021-04-15 18:38 | Outpatient (CLI) | payer MEDICAID, SELFPAY ==
[2021-04-15 19:20] LABS: Alanine Aminotransferase 19 U/L (0-41); Albumin Level 3.6 g/dL (3.5-5.2); Alkaline Phosphatase 70 IU/L (40-130); Anion Gap 14.7 (5-19); Aspartate Amino Transferase 18 U/L (0-40); Blood Urea Nitrogen 19 mg/dL (8-23); Carbon Dioxide 26 mmol/L (22-29); Chloride 100 mmol/L (98-107); Globulin 3.6 g/dL (1.3-4.6); Glucose 228 mg/dL (65-115); Osmolality Calculated 289 mOsm/kg (285-295); Potassium 5.7 mmol/L (3.5-5.1); Sodium 135 mmol/L (136-145); Total Bilirubin 0.2 mg/dL (0.15-1.2); Total Protein 7.2 g/dL (6.6-8.7)
[2021-04-15 19:21] LABS: Basophils # 0.1 10^3/uL (0.0-0.1); Basophils % 0.8 %; Eosinophils # 0.4 10^3/uL (0.0-0.8); Eosinophils % 3.3 %; Hematocrit 38.1 % (42.0-52.0); Hemoglobin 12.1 g/dL (11.7-16.6); Lymphocytes # 2.6 10^3/uL (0.8-4.8); Lymphocytes % 21.6 %; Mean Corpuscular HGB Conc 31.8 g/dL (30.0-36.0); Mean Corpuscular Volume 91.4 fl (80-94); Mean Platelet Volume 10.6 fL (7.4-10.4); Monocytes # 1.2 10^3/uL (0.2-0.9); Monocytes % 10.3 %; Neutrophils # 7.56 10^3/uL (1.8-7.7); Nucleated Red Blood Cells % 0 %; Platelet Count 453 10^3/cmm (130-400); Red Blood Count 4.17 10^6/uL (4.1-5.3); Red Cell Distribution Width 12.5 % (12.1-15.1); Vancomycin Trough 19.4 ug/mL (10-15)
== END 2021-04-15 18:39 | disposition home or self-care (01) ==
PROVIDERS: PCP Family Medicine; Visit Provider Student in an Organized Health Care Education/Training Program
DX: Z45.2 Encounter for adjustment and management of vascular access device (principal)
CPT/HCPCS: 80053; 80202; 85025

== ENCOUNTER 2021-04-16 08:05 | Outpatient (CLI) | payer MEDICAID, SELFPAY | END 2021-04-16 08:06 | disposition home or self-care (01) | LOC: WOUND 08:06 | PROVIDERS: PCP Family Medicine; Visit Provider Thoracic Surgery (Cardiothoracic Vascular Surgery) | DX: M86.672 Other chronic osteomyelitis, left ankle and foot (principal) | CPT/HCPCS: G0277 ==

== ENCOUNTER 2021-04-17 08:31 | Outpatient (CLI) | payer MEDICAID, SELFPAY | END 2021-04-17 08:32 | disposition home or self-care (01) | LOC: WOUND 08:31 | PROVIDERS: PCP Family Medicine; Visit Provider Emergency Medicine | DX: M86.672 Other chronic osteomyelitis, left ankle and foot (principal) | CPT/HCPCS: G0277 ==

== ENCOUNTER 2021-04-18 08:09 | Outpatient (CLI) | payer MEDICAID, SELFPAY | END 2021-04-18 08:10 | disposition home or self-care (01) | LOC: WOUND 08:10 | PROVIDERS: PCP Family Medicine; Visit Provider Thoracic Surgery (Cardiothoracic Vascular Surgery) | DX: M86.672 Other chronic osteomyelitis, left ankle and foot (principal); E11.621 Type 2 diabetes mellitus with foot ulcer; L97.522 Non-pressure chronic ulcer of other part of left foot with fat layer exposed; F17.210 Nicotine dependence, cigarettes, uncomplicated; Z89.422 Acquired absence of other left toe(s) | CPT/HCPCS: 11042; G0277 ==

== ENCOUNTER 2021-04-19 08:11 | Outpatient (CLI) | payer MEDICAID, SELFPAY | END 2021-04-19 08:12 | disposition home or self-care (01) | LOC: WOUND 08:11 | PROVIDERS: PCP Family Medicine; Visit Provider Emergency Medicine | DX: M86.672 Other chronic osteomyelitis, left ankle and foot (principal) | CPT/HCPCS: G0277 ==

== ENCOUNTER 2021-04-19 16:18 | Outpatient (CLI) | payer MEDICAID, SELFPAY | END 2021-04-19 16:19 | disposition home or self-care (01) | LOC: SPT 16:19 | PROVIDERS: PCP Family Medicine; Visit Provider Nurse Practitioner Family | DX: Z46.89 Encounter for fitting and adjustment of other specified devices (principal); R26.89 Other abnormalities of gait and mobility | CPT/HCPCS: 97760 ==

== ENCOUNTER 2021-04-23 09:03 | Outpatient (CLI) | payer MEDICAID, SELFPAY | END 2021-04-23 09:04 | disposition home or self-care (01) | LOC: WOUND 09:03 | PROVIDERS: PCP Family Medicine; Visit Provider Nurse Practitioner Family | DX: M86.672 Other chronic osteomyelitis, left ankle and foot (principal) | CPT/HCPCS: G0277 ==

== ENCOUNTER 2021-04-23 13:35 | Outpatient (CLI) | payer MEDICAID, SELFPAY ==
[2021-04-23 14:14] LABS: Basophils # 0.1 10^3/uL (0.0-0.1); Basophils % 0.8 %; Eosinophils # 0.4 10^3/uL (0.0-0.8); Eosinophils % 4.4 %; Hematocrit 37.6 % (42.0-52.0); Hemoglobin 12.1 g/dL (11.7-16.6); Lymphocytes # 2.2 10^3/uL (0.8-4.8); Lymphocytes % 23.4 %; Mean Corpuscular HGB Conc 32.2 g/dL (30.0-36.0); Mean Corpuscular Hemoglobin 29.7 pg (28.0-34.0); Mean Corpuscular Volume 92.2 fl (80-94); Mean Platelet Volume 11.4 fL (7.4-10.4); Monocytes # 1.1 10^3/uL (0.2-0.9); Monocytes % 11.4 %; Neutrophils # 5.49 10^3/uL (1.8-7.7); Neutrophils % 59.6 %; Nucleated Red Blood Cells % 0 %; Platelet Count 330 10^3/cmm (130-400); Red Blood Count 4.08 10^6/uL (4.1-5.3); Red Cell Distribution Width 12.7 % (12.1-15.1); White Blood Count 9.2 10^3/uL (4.0-10.0)
[2021-04-23 14:29] LABS: Alanine Aminotransferase 17 U/L (0-41); Albumin Level 3.5 g/dL (3.5-5.2); Alkaline Phosphatase 63 IU/L (40-130); Anion Gap 17.8 (5-19); Aspartate Amino Transferase 17 U/L (0-40); Blood Urea Nitrogen 19 mg/dL (8-23); Calcium 8.7 mg/dL (8.5-10.5); Carbon Dioxide 23 mmol/L (22-29); Chloride 100 mmol/L (98-107); Globulin 3.4 g/dL (1.3-4.6); Glucose 226 mg/dL (65-115); Osmolality Calculated 291 mOsm/kg (285-295); Potassium 4.8 mmol/L (3.5-5.1); Sodium 136 mmol/L (136-145); Total Bilirubin 0.2 mg/dL (0.15-1.2); Total Protein 6.9 g/dL (6.6-8.7)
[2021-04-23 14:38] LABS: Vancomycin Trough 21.3 ug/mL (10-15)
== END 2021-04-23 13:36 | disposition home or self-care (01) ==
LOC: LAB 13:38
PROVIDERS: PCP Family Medicine; Visit Provider Thoracic Surgery (Cardiothoracic Vascular Surgery)
DX: M86.9 Osteomyelitis, unspecified (principal)
CPT/HCPCS: 80053; 80202; 85025

== ENCOUNTER 2021-04-25 08:26 | Outpatient (CLI) | payer MEDICAID, SELFPAY | END 2021-04-25 08:27 | disposition home or self-care (01) | LOC: WOUND 08:26 | PROVIDERS: PCP Family Medicine; Visit Provider Nurse Practitioner Family | DX: M86.672 Other chronic osteomyelitis, left ankle and foot (principal); E11.621 Type 2 diabetes mellitus with foot ulcer; L97.522 Non-pressure chronic ulcer of other part of left foot with fat layer exposed; F17.210 Nicotine dependence, cigarettes, uncomplicated | CPT/HCPCS: 11042; A6237; A6250; G0277 ==

== ENCOUNTER 2021-04-30 08:44 | Outpatient (CLI) | payer MEDICAID, SELFPAY | END 2021-04-30 08:45 | disposition home or self-care (01) | LOC: WOUND 08:45 → LAB 18:46 | PROVIDERS: PCP Family Medicine; Visit Provider Thoracic Surgery (Cardiothoracic Vascular Surgery) | DX: M86.472 Chronic osteomyelitis with draining sinus, left ankle and foot (principal) | CPT/HCPCS: 85025; G0277 ==

== ENCOUNTER 2021-04-30 18:54 | Outpatient (CLI) | payer MEDICAID, SELFPAY ==
[2021-04-30 21:39] LABS: Basophils % 0.3 %; Eosinophils # 0.7 10^3/uL (0.0-0.8); Eosinophils % 5.8 %; Hematocrit 38.8 % (42.0-52.0); Hemoglobin 12.2 g/dL (11.7-16.6); Lymphocytes # 2.8 10^3/uL (0.8-4.8); Lymphocytes % 24.5 %; Mean Corpuscular HGB Conc 31.4 g/dL (30.0-36.0); Mean Corpuscular Hemoglobin 29.5 pg (28.0-34.0); Mean Corpuscular Volume 93.9 fl (80-94); Mean Platelet Volume 11.3 fL (7.4-10.4); Monocytes # 1.3 10^3/uL (0.2-0.9); Monocytes % 11.2 %; Neutrophils # 6.67 10^3/uL (1.8-7.7); Neutrophils % 57.8 %; Nucleated Red Blood Cells % 0 %; Platelet Count 307 10^3/cmm (130-400); Red Blood Count 4.13 10^6/uL (4.1-5.3); Red Cell Distribution Width 13.2 % (12.1-15.1); White Blood Count 11.6 10^3/uL (4.0-10.0)
[2021-04-30 21:59] LABS: Vancomycin Trough < 4.0 ug/mL (10-15)
[2021-04-30 22:00] LABS: Alanine Aminotransferase 16 U/L (0-41); Alkaline Phosphatase 74 IU/L (40-130); Anion Gap 16.9 (5-19); Aspartate Amino Transferase 16 U/L (0-40); Blood Urea Nitrogen 23 mg/dL (8-23); Calcium 8.6 mg/dL (8.5-10.5); Carbon Dioxide 28 mmol/L (22-29); Chloride 97 mmol/L (98-107); Globulin 2.5 g/dL (1.3-4.6); Glomerular Filtration Rate 51.5 mL/min (90-130); Glucose 145 mg/dL (65-115); Osmolality Calculated 290 mOsm/kg (285-295); Potassium 4.9 mmol/L (3.5-5.1); Sodium 137 mmol/L (136-145); Total Bilirubin 0.2 mg/dL (0.15-1.2); Total Protein 6.5 g/dL (6.6-8.7)
== END 2021-04-30 18:55 | disposition home or self-care (01) ==
LOC: LAB 18:56
PROVIDERS: PCP Family Medicine; Visit Provider Student in an Organized Health Care Education/Training Program
DX: M86.472 Chronic osteomyelitis with draining sinus, left ankle and foot (principal)
CPT/HCPCS: 80053; 80202; 85025

== ENCOUNTER 2021-05-01 08:36 | Outpatient (CLI) | payer MEDICAID, SELFPAY | END 2021-05-01 08:37 | disposition home or self-care (01) | LOC: WOUND 08:37 | PROVIDERS: PCP Family Medicine; Visit Provider Emergency Medicine | DX: M86.672 Other chronic osteomyelitis, left ankle and foot (principal) | CPT/HCPCS: G0277 ==

== ENCOUNTER 2021-05-02 08:41 | Outpatient (CLI) | payer MEDICAID, SELFPAY | END 2021-05-02 08:42 | disposition home or self-care (01) | LOC: WOUND 08:41 | PROVIDERS: PCP Family Medicine; Visit Provider Thoracic Surgery (Cardiothoracic Vascular Surgery) | DX: I96 Gangrene, not elsewhere classified (principal); M86.672 Other chronic osteomyelitis, left ankle and foot; E11.621 Type 2 diabetes mellitus with foot ulcer; L97.522 Non-pressure chronic ulcer of other part of left foot with fat layer exposed; F17.210 Nicotine dependence, cigarettes, uncomplicated | CPT/HCPCS: 11042; A6237; A6250; G0277 ==

== ENCOUNTER 2021-05-03 08:31 | Outpatient (CLI) | payer MEDICAID, SELFPAY | END 2021-05-03 08:32 | disposition home or self-care (01) | LOC: WOUND 08:32 | PROVIDERS: PCP Family Medicine; Visit Provider Emergency Medicine | DX: M86.672 Other chronic osteomyelitis, left ankle and foot (principal) | CPT/HCPCS: G0277 ==

== ENCOUNTER 2021-05-04 08:26 | Outpatient (CLI) | payer MEDICAID, SELFPAY ==
[2021-05-04 18:23] LABS: Basophils # 0.1 10^3/uL (0.0-0.1); Basophils % 0.8 %; Eosinophils # 0.6 10^3/uL (0.0-0.8); Hematocrit 40.8 % (42.0-52.0); Hemoglobin 12.8 g/dL (11.7-16.6); Lymphocytes # 2.2 10^3/uL (0.8-4.8); Lymphocytes % 19.8 %; Mean Corpuscular HGB Conc 31.4 g/dL (30.0-36.0); Mean Corpuscular Hemoglobin 29.5 pg (28.0-34.0); Mean Platelet Volume 10.7 fL (7.4-10.4); Monocytes # 1.1 10^3/uL (0.2-0.9); Monocytes % 10.1 %; Neutrophils # 7.05 10^3/uL (1.8-7.7); Neutrophils % 63.7 %; Nucleated Red Blood Cells % 0 %; Platelet Count 333 10^3/cmm (130-400); Red Blood Count 4.34 10^6/uL (4.1-5.3); Red Cell Distribution Width 13.2 % (12.1-15.1); White Blood Count 11.1 10^3/uL (4.0-10.0)
[2021-05-04 18:57] LABS: Alanine Aminotransferase 15 U/L (0-41); Albumin Level 3.8 g/dL (3.5-5.2); Alkaline Phosphatase 59 IU/L (40-130); Anion Gap 17.1 (5-19); Aspartate Amino Transferase 16 U/L (0-40); Blood Urea Nitrogen 21 mg/dL (8-23); Calcium 10.2 mg/dL (8.5-10.5); Carbon Dioxide 26 mmol/L (22-29); Chloride 101 mmol/L (98-107); Globulin 3.6 g/dL (1.3-4.6); Glomerular Filtration Rate 85.8 mL/min (90-130); Glucose 135 mg/dL (65-115); Osmolality Calculated 293 mOsm/kg (285-295); Potassium 5.1 mmol/L (3.5-5.1); Sodium 139 mmol/L (136-145); Total Bilirubin 0.2 mg/dL (0.15-1.2); Total Protein 7.4 g/dL (6.6-8.7)
== END 2021-05-04 08:27 | disposition home or self-care (01) ==
LOC: WOUND 08:27
PROVIDERS: PCP Family Medicine; Visit Provider Surgery
DX: M86.672 Other chronic osteomyelitis, left ankle and foot (principal)
CPT/HCPCS: 80053; 80202; 85025; G0277

== ENCOUNTER 2021-05-07 08:29 | Outpatient (CLI) | payer MEDICAID, SELFPAY | END 2021-05-07 08:30 | disposition home or self-care (01) | LOC: WOUND 08:30 | PROVIDERS: PCP Family Medicine; Visit Provider Thoracic Surgery (Cardiothoracic Vascular Surgery) | DX: M86.672 Other chronic osteomyelitis, left ankle and foot (principal); E11.621 Type 2 diabetes mellitus with foot ulcer; L97.521 Non-pressure chronic ulcer of other part of left foot limited to breakdown of skin; F17.210 Nicotine dependence, cigarettes, uncomplicated; I10 Essential (primary) hypertension | CPT/HCPCS: 97597; 97605; A6237; A6250; G0277 ==

== ENCOUNTER 2021-05-08 08:09 | Outpatient (CLI) | payer MEDICAID, SELFPAY | END 2021-05-08 08:10 | disposition home or self-care (01) | LOC: WOUND 08:10 | PROVIDERS: PCP Family Medicine; Visit Provider Emergency Medicine | DX: M86.672 Other chronic osteomyelitis, left ankle and foot (principal) | CPT/HCPCS: G0277 ==

== ENCOUNTER 2021-05-09 09:05 | Outpatient (CLI) | payer MEDICAID, SELFPAY | END 2021-05-09 09:06 | disposition home or self-care (01) | LOC: WOUND 09:05 | PROVIDERS: PCP Family Medicine; Visit Provider Thoracic Surgery (Cardiothoracic Vascular Surgery) | DX: M86.672 Other chronic osteomyelitis, left ankle and foot (principal) | CPT/HCPCS: G0277 ==

== ENCOUNTER 2021-05-14 08:13 | Outpatient (CLI) | payer MEDICAID, SELFPAY | END 2021-05-14 08:14 | disposition home or self-care (01) | LOC: WOUND 08:15 | PROVIDERS: PCP Family Medicine; Visit Provider Thoracic Surgery (Cardiothoracic Vascular Surgery) | DX: I96 Gangrene, not elsewhere classified (principal); E11.621 Type 2 diabetes mellitus with foot ulcer; L97.521 Non-pressure chronic ulcer of other part of left foot limited to breakdown of skin; F17.210 Nicotine dependence, cigarettes, uncomplicated | CPT/HCPCS: 97597; 97605; A6237; A6250; G0277 ==

== ENCOUNTER 2021-05-16 08:06 | Outpatient (CLI) | payer MEDICAID, SELFPAY | END 2021-05-16 08:07 | disposition home or self-care (01) | LOC: WOUND 08:07 | PROVIDERS: PCP Family Medicine; Visit Provider Thoracic Surgery (Cardiothoracic Vascular Surgery) | DX: M86.672 Other chronic osteomyelitis, left ankle and foot (principal) | CPT/HCPCS: G0277 ==

== ENCOUNTER 2021-05-18 08:12 | Outpatient (CLI) | payer MEDICAID, SELFPAY | END 2021-05-18 08:13 | disposition home or self-care (01) | LOC: WOUND 08:12 | PROVIDERS: PCP Family Medicine; Visit Provider Surgery | DX: M86.672 Other chronic osteomyelitis, left ankle and foot (principal) | CPT/HCPCS: G0277 ==

== ENCOUNTER 2021-05-21 08:20 | Outpatient (CLI) | payer MEDICAID, SELFPAY | END 2021-05-21 08:21 | disposition home or self-care (01) | LOC: WOUND 08:21 | PROVIDERS: PCP Family Medicine; Visit Provider Thoracic Surgery (Cardiothoracic Vascular Surgery) | DX: I96 Gangrene, not elsewhere classified (principal); E11.621 Type 2 diabetes mellitus with foot ulcer; L97.522 Non-pressure chronic ulcer of other part of left foot with fat layer exposed; F17.210 Nicotine dependence, cigarettes, uncomplicated | CPT/HCPCS: 11042; 97605 ==

== ENCOUNTER 2021-05-21 15:13 | Outpatient (CLI) | payer MEDICAID, SELFPAY ==
[2021-05-21 15:58] LABS: Basophils # 0.1 10^3/uL (0.0-0.1); Eosinophils # 0.9 10^3/uL (0.0-0.8); Eosinophils % 7.3 %; Hematocrit 37.6 % (42.0-52.0); Lymphocytes # 2.2 10^3/uL (0.8-4.8); Lymphocytes % 17.4 %; Mean Corpuscular HGB Conc 31.9 g/dL (30.0-36.0); Mean Corpuscular Hemoglobin 29.3 pg (28.0-34.0); Mean Corpuscular Volume 91.9 fl (80-94); Mean Platelet Volume 10.4 fL (7.4-10.4); Monocytes # 1.2 10^3/uL (0.2-0.9); Monocytes % 9.5 %; Neutrophils # 7.97 10^3/uL (1.8-7.7); Neutrophils % 64.2 %; Nucleated Red Blood Cells % 0 %; Platelet Count 386 10^3/cmm (130-400); Red Blood Count 4.09 10^6/uL (4.1-5.3); Red Cell Distribution Width 13.2 % (12.1-15.1); White Blood Count 12.4 10^3/uL (4.0-10.0)
[2021-05-21 16:21] LABS: Calcium 9.8 mg/dL (8.5-10.5)
[2021-05-21 16:29] LABS: Parathyroid Hormone 20.6 pg/mL (15-65)
[2021-05-21 16:32] LABS: Albumin Level 3.6 g/dL (3.5-5.2); Anion Gap 13.9 (5-19); Blood Urea Nitrogen 18 mg/dL (8-23); Calcium 8.9 mg/dL (8.5-10.5); Carbon Dioxide 26 mmol/L (22-29); Chloride 101 mmol/L (98-107); Glomerular Filtration Rate 47.6 mL/min (90-130); Glucose 151 mg/dL (65-115); Phosphorus 3.9 mg/dL (2.5-4.5); Potassium 4.9 mmol/L (3.5-5.1); Sodium 136 mmol/L (136-145)
[2021-05-21 18:02] LABS: Creatinine Urine, Random 95 mg/dL (39-259)
[2021-05-21 18:16] LABS: Microalbum Creatinine Ratio Ur 474 mg/dL (0-20); Microalbumin Random Urine 45 ug/dL (0-20)
== END 2021-05-21 15:14 | disposition home or self-care (01) ==
PROVIDERS: PCP Family Medicine; Visit Provider Internal Medicine Nephrology
DX: N18.31 Chronic kidney disease, stage 3a (principal)
CPT/HCPCS: 36415; 80069; 82044; 82310; 83970; 85025

== ENCOUNTER 2021-05-22 08:05 | Outpatient (CLI) | payer MEDICAID, SELFPAY | END 2021-05-22 08:06 | disposition home or self-care (01) | LOC: WOUND 08:05 | PROVIDERS: PCP Family Medicine; Visit Provider Emergency Medicine | DX: M86.672 Other chronic osteomyelitis, left ankle and foot (principal) | CPT/HCPCS: G0277 ==

== ENCOUNTER 2021-05-23 12:50 | Outpatient (CLI) | payer MEDICAID, SELFPAY ==
[2021-05-23 13:28] LABS: Basophils # 0.2 10^3/uL (0.0-0.1); Basophils % 1.2 %; Eosinophils % 8.1 %; Hematocrit 38.9 % (42.0-52.0); Hemoglobin 12.4 g/dL (11.7-16.6); Lymphocytes # 2.7 10^3/uL (0.8-4.8); Lymphocytes % 21.6 %; Mean Corpuscular HGB Conc 31.9 g/dL (30.0-36.0); Mean Corpuscular Hemoglobin 29.9 pg (28.0-34.0); Mean Corpuscular Volume 93.7 fl (80-94); Mean Platelet Volume 10.2 fL (7.4-10.4); Monocytes # 1.1 10^3/uL (0.2-0.9); Monocytes % 8.8 %; Neutrophils # 7.25 10^3/uL (1.8-7.7); Neutrophils % 59.2 %; Nucleated Red Blood Cells % 0 %; Platelet Count 389 10^3/cmm (130-400); Red Blood Count 4.15 10^6/uL (4.1-5.3); Red Cell Distribution Width 13.3 % (12.1-15.1); White Blood Count 12.3 10^3/uL (4.0-10.0)
[2021-05-23 13:48] LABS: Alanine Aminotransferase 13 U/L (0-41); Albumin Level 3.7 g/dL (3.5-5.2); Alkaline Phosphatase 57 IU/L (40-130); Anion Gap 14.9 (5-19); Aspartate Amino Transferase 13 U/L (0-40); Blood Urea Nitrogen 16 mg/dL (8-23); Calcium 10.1 mg/dL (8.5-10.5); Carbon Dioxide 26 mmol/L (22-29); Chloride 104 mmol/L (98-107); Globulin 3.4 g/dL (1.3-4.6); Glomerular Filtration Rate 47.6 mL/min (90-130); Glucose 200 mg/dL (65-115); Osmolality Calculated 295 mOsm/kg (285-295); Potassium 5.9 mmol/L (3.5-5.1); Sodium 139 mmol/L (136-145); Total Bilirubin 0.2 mg/dL (0.15-1.2); Total Protein 7.1 g/dL (6.6-8.7)
== END 2021-05-23 12:51 | disposition home or self-care (01) ==
LOC: LAB 12:57
PROVIDERS: PCP Family Medicine; Visit Provider Student in an Organized Health Care Education/Training Program
DX: M86.9 Osteomyelitis, unspecified (principal)
CPT/HCPCS: 36415; 80053; 85025

== ENCOUNTER 2021-05-24 09:13 | Outpatient (CLI) | payer MEDICAID, SELFPAY | END 2021-05-24 09:14 | disposition home or self-care (01) | LOC: WOUND 09:14 | PROVIDERS: PCP Family Medicine; Visit Provider Emergency Medicine | DX: M86.672 Other chronic osteomyelitis, left ankle and foot (principal) | CPT/HCPCS: 97605; G0277 ==

== ENCOUNTER 2021-05-25 08:26 | Outpatient (CLI) | payer MEDICAID, SELFPAY | END 2021-05-25 08:27 | disposition home or self-care (01) | LOC: WNDACUTE 08:29 | PROVIDERS: PCP Family Medicine; Visit Provider Thoracic Surgery (Cardiothoracic Vascular Surgery) | DX: M86.672 Other chronic osteomyelitis, left ankle and foot (principal) | CPT/HCPCS: G0277 ==

== ENCOUNTER 2021-05-25 12:39 | Outpatient (CLI) | payer MEDICAID, SELFPAY ==
[2021-05-25 13:56] LABS: Alanine Aminotransferase 14 U/L (0-41); Albumin Level 3.9 g/dL (3.5-5.2); Alkaline Phosphatase 57 IU/L (40-130); Blood Urea Nitrogen 20 mg/dL (8-23); Calcium 10.2 mg/dL (8.5-10.5); Carbon Dioxide 25 mmol/L (22-29); Chloride 104 mmol/L (98-107); Globulin 3.5 g/dL (1.3-4.6); Glomerular Filtration Rate 44.2 mL/min (90-130); Glucose 186 mg/dL (65-115); Osmolality Calculated 293 mOsm/kg (285-295); Sodium 138 mmol/L (136-145); Total Bilirubin 0.2 mg/dL (0.15-1.2); Total Protein 7.4 g/dL (6.6-8.7)
[2021-05-25 13:58] LABS: Anion Gap 15.2 (5-19); Potassium 6.2 mmol/L (3.5-5.1)
[2021-05-25 13:59] LABS: Aspartate Amino Transferase 19 U/L (0-40)
--- NOTE | 2021-05-27 15:30 | PM.MISC ---
Miscellaneous Note Purpose of Documentation: patient called and updated about critical K of 6.2 and advised to repeat given some hemolysis noted on specimen from 05/25. Patient indicates he will be at the hospital this evening and will get his labs done.If persistently elevated K, will likely need treatment at ER.
== END 2021-05-25 12:40 | disposition home or self-care (01) ==
PROVIDERS: PCP Family Medicine; Visit Provider Student in an Organized Health Care Education/Training Program
DX: E87.5 Hyperkalemia (principal); N17.9 Acute kidney failure, unspecified
CPT/HCPCS: 80053

== ENCOUNTER 2021-05-28 08:26 | Outpatient (CLI) | payer MEDICAID, SELFPAY ==
[2021-05-28 09:21] LABS: Alanine Aminotransferase 17 U/L (0-41); Alkaline Phosphatase 60 IU/L (40-130); Anion Gap 15.3 (5-19); Aspartate Amino Transferase 21 U/L (0-40); Blood Urea Nitrogen 29 mg/dL (8-23); Carbon Dioxide 25 mmol/L (22-29); Chloride 103 mmol/L (98-107); Globulin 4.1 g/dL (1.3-4.6); Glomerular Filtration Rate 61.6 mL/min (90-130); Glucose 197 mg/dL (65-115); Osmolality Calculated 297 mOsm/kg (285-295); Potassium 5.3 mmol/L (3.5-5.1); Sodium 138 mmol/L (136-145); Total Bilirubin 0.2 mg/dL (0.15-1.2); Total Protein 8.1 g/dL (6.6-8.7)
== END 2021-05-28 08:27 | disposition home or self-care (01) ==
LOC: LAB 08:35
PROVIDERS: PCP Family Medicine; Visit Provider Student in an Organized Health Care Education/Training Program
DX: E87.5 Hyperkalemia (principal)
CPT/HCPCS: 36415; 80053

== ENCOUNTER 2021-05-28 09:26 | Outpatient (CLI) | payer MEDICAID, SELFPAY | END 2021-05-28 09:27 | disposition home or self-care (01) | LOC: WOUND 09:26 | PROVIDERS: PCP Family Medicine; Visit Provider Thoracic Surgery (Cardiothoracic Vascular Surgery) | DX: I96 Gangrene, not elsewhere classified (principal); E11.621 Type 2 diabetes mellitus with foot ulcer; L97.511 Non-pressure chronic ulcer of other part of right foot limited to breakdown of skin; F17.210 Nicotine dependence, cigarettes, uncomplicated | CPT/HCPCS: 15275; 97605; A6237; A6250; G0277; Q4187 ==

== ENCOUNTER 2021-05-29 08:02 | Outpatient (CLI) | payer MEDICAID, SELFPAY | END 2021-05-29 08:03 | disposition home or self-care (01) | LOC: WOUND 08:03 | PROVIDERS: PCP Family Medicine; Visit Provider Emergency Medicine | DX: M86.672 Other chronic osteomyelitis, left ankle and foot (principal) | CPT/HCPCS: G0277 ==

== ENCOUNTER 2021-05-30 08:55 | Outpatient (CLI) | payer MEDICAID, SELFPAY | END 2021-05-30 08:56 | disposition home or self-care (01) | LOC: WOUND 08:56 | PROVIDERS: PCP Family Medicine; Visit Provider Thoracic Surgery (Cardiothoracic Vascular Surgery) | DX: M86.672 Other chronic osteomyelitis, left ankle and foot (principal) | CPT/HCPCS: G0277 ==

== ENCOUNTER 2021-06-04 08:43 | Outpatient (CLI) | payer MEDICAID, SELFPAY | END 2021-06-04 08:44 | disposition home or self-care (01) | LOC: WOUND 08:43 | PROVIDERS: PCP Family Medicine; Visit Provider Thoracic Surgery (Cardiothoracic Vascular Surgery) | DX: E11.621 Type 2 diabetes mellitus with foot ulcer (principal); L97.513 Non-pressure chronic ulcer of other part of right foot with necrosis of muscle; M86.472 Chronic osteomyelitis with draining sinus, left ankle and foot; F17.210 Nicotine dependence, cigarettes, uncomplicated | CPT/HCPCS: 97597; G0277 ==

== ENCOUNTER 2021-06-05 07:56 | Outpatient (CLI) | payer MEDICAID, SELFPAY | END 2021-06-05 07:57 | disposition home or self-care (01) | LOC: WOUND 07:57 | PROVIDERS: PCP Family Medicine; Visit Provider Thoracic Surgery (Cardiothoracic Vascular Surgery) | DX: E11.621 Type 2 diabetes mellitus with foot ulcer (principal); L97.523 Non-pressure chronic ulcer of other part of left foot with necrosis of muscle; M86.472 Chronic osteomyelitis with draining sinus, left ankle and foot; F17.210 Nicotine dependence, cigarettes, uncomplicated | CPT/HCPCS: 15275; 97605; A6237; A6250; G0277; Q4187 ==

== ENCOUNTER 2021-06-06 08:06 | Outpatient (CLI) | payer MEDICAID, SELFPAY | END 2021-06-06 08:07 | disposition home or self-care (01) | LOC: WOUND 08:07 | PROVIDERS: PCP Family Medicine; Visit Provider Thoracic Surgery (Cardiothoracic Vascular Surgery) | DX: I96 Gangrene, not elsewhere classified (principal); E11.621 Type 2 diabetes mellitus with foot ulcer; L97.423 Non-pressure chronic ulcer of left heel and midfoot with necrosis of muscle; F17.210 Nicotine dependence, cigarettes, uncomplicated | CPT/HCPCS: G0277 ==

== ENCOUNTER → 2021-06-07 15:14 | Outpatient (BNVA) | payer MEDICAID, SELFPAY | PROVIDERS: PCP Family Medicine; Visit Provider Family Medicine | DX: E11.22 Type 2 diabetes mellitus with diabetic chronic kidney disease (principal); E78.5 Hyperlipidemia, unspecified; E11.65 Type 2 diabetes mellitus with hyperglycemia; M86.172 Other acute osteomyelitis, left ankle and foot; Z79.4 Long term (current) use of insulin | CPT/HCPCS: 83036 ==

== ENCOUNTER 2021-06-08 08:46 | Outpatient (CLI) | payer MEDICAID, SELFPAY | END 2021-06-08 08:47 | disposition home or self-care (01) | LOC: WOUND 08:47 | PROVIDERS: PCP Family Medicine; Visit Provider Surgery | DX: E11.621 Type 2 diabetes mellitus with foot ulcer (principal); I96 Gangrene, not elsewhere classified; L97.423 Non-pressure chronic ulcer of left heel and midfoot with necrosis of muscle; F17.210 Nicotine dependence, cigarettes, uncomplicated | CPT/HCPCS: 97605; A6237; A6250; G0277 ==

== ENCOUNTER 2021-06-11 08:04 | Outpatient (CLI) | payer MEDICAID, SELFPAY | END 2021-06-11 08:05 | disposition home or self-care (01) | LOC: WOUND 08:05 | PROVIDERS: PCP Family Medicine; Visit Provider Thoracic Surgery (Cardiothoracic Vascular Surgery) | DX: E11.621 Type 2 diabetes mellitus with foot ulcer (principal); I96 Gangrene, not elsewhere classified; L97.423 Non-pressure chronic ulcer of left heel and midfoot with necrosis of muscle; F17.210 Nicotine dependence, cigarettes, uncomplicated | CPT/HCPCS: 11044; 87070; 87077; 87176; 87186; 87205; 97605 ==

== ENCOUNTER 2021-06-14 08:15 | Outpatient (CLI) | payer MEDICAID, SELFPAY | END 2021-06-14 08:16 | disposition home or self-care (01) | LOC: WOUND 08:15 | PROVIDERS: PCP Family Medicine; Visit Provider Nurse Practitioner Family | DX: E11.621 Type 2 diabetes mellitus with foot ulcer (principal); M86.472 Chronic osteomyelitis with draining sinus, left ankle and foot; L97.529 Non-pressure chronic ulcer of other part of left foot with unspecified severity | CPT/HCPCS: 99212 ==

== ENCOUNTER 2021-06-14 15:49 | Inpatient (IN) | payer MEDICAID, SELFPAY ==
[2021-06-14] VITALS (11 sets, daily range): BP systolic 136–170; BP diastolic 73–96; PULSE 84–98; RESP 18–20; TEMP 36.7–36.8; O2SAT 95–100; BMI 29.5; BMI 30.6
--- NOTE | 2021-06-14 16:17 | PC.NURSE ---
PT STATES HE IS SUPPOSED TO BE A DIRECT ADMIT TO THE HOSPITAL FOR IV ANTIBIOTICS
--- NOTE | 2021-06-14 17:02 | XRR_ITS ---
PROCEDURE INFORMATION: Exam: XR Left Foot Exam date and time: 06/14/2021 5:02 PM Age: 60 years old Clinical indication: Swelling, leg or foot and other: Chronic MRSA infection; Prior surgery; Surgery date: 6+ months; Additional info: Foot infection TECHNIQUE: Imaging protocol: XR Left foot. Views: 1 or 2 views. COMPARISON: CR XR foot LT min 3V* [id number] 04/09/2021 10:38 AM FINDINGS: Bones/joints: The patient has had an interval resection of the 5th toe beyond the proximal metaphysis of the 5th metatarsal and additional resection of the 4th metatarsal to the mid-diaphysis. Stable postsurgical changes consistent with resection of the 2nd and 3rd toes beyond the heads of the 2nd and 3rd metatarsals and of the 4th toe beyond mid diaphysis of the 4th metatarsal. Bones are diffusely osteopenic. Findings are stable. Small plantar calcaneal bone spur. No acute fracture. No dislocation. Normal bone mineralization. Soft tissues: Moderate soft tissue swelling distal to the 3rd, 4th, and 5th metatarsal stumps concerning for cellulitis. No soft tissue emphysema. XR/XR foot LT 2V [id number] IMPRESSION: 1. The patient has had an interval resection of the 5th toe beyond the proximal metaphysis of the 5th metatarsal and additional resection of the 4th metatarsal to the mid-diaphysis. Interval development of periosteal reaction and sclerosis at the residual 5th metatarsal stump and periosteal reaction adjacent to the 4th metatarsal stump. Findings are concerning for osteomyelitis. Recommend clinical correlation. MRI without and with contrast may be obtained for further evaluation if it will change clinical management. If the patient has any contradiction for MRI, 3 phase bone scan in conjunction with white blood cell scan may be obtained. 2. Stable postsurgical changes consistent with resection of the 2nd and 3rd toes beyond the heads of the 2nd and 3rd metatarsals and of the 4th toe beyond mid diaphysis of the 4th metatarsal. 3. Moderate soft tissue swelling distal to the 3rd, 4th, and 5th metatarsal stumps concerning for cellulitis. No soft tissue emphysema. 4. Incidental/nonacute findings are listed in the report.
[2021-06-14] MEDS: piperacillin-tazobactam 4.5 GM in sodium chloride 0.9% (plus) 50 ML IV (17:15)
--- NOTE | 2021-06-14 17:27 | ED_ITS ---
HPI - General Adult General: Chief complaint: Extremity Injury, Lower Stated complaint: Patient states Felicita in rt foot, open wound Time Seen by Provider: 06/14/21 16:54 History of Present Illness: Patient is a 60-year-old male with a history of type 2 diabetes chronic left foot wound who presents emergency room at the request of wound clinic for possible MRSA foot infection vs osteomyelitis. Recent underwent a soft tissue biopsy which came back for MRSA on Friday. The patient has had a chronic wound since April for which he is followed by the wound care clinic. On Friday this week, patient underwent a biopsy which resulted MRSA growth of the bone. Patient was told to come to the emergency room for admission for osteomyelitis and possible MRSA wound. Patient denies any fever chills, cough, shortness of breath,, runny nose, sore throat, abdominal complaints, complaints, nausea/vomiting, diarrhea, melena/hematochezia or other complaints at this time Onset:chronic Duration:ongoing Location:L foot Severity:moderates/severe Associated symptoms: Reports rash (+diabetic foot wound L ); Deny chest pain, dyspnea, nausea, palpitations or vomiting Review of Systems Const: Denies: fever(s) or chills Eyes: Denies: change in vision ENMT: Denies: mouth pain Card: Denies: chest pain or palpitations Resp: Denies: dyspnea or non-productive cough GI: Denies: abdominal pain, nausea, vomiting or diarrhea : Denies: dysuria Musc: Denies: extremity pain Skin/Breast: Reports: rash (+diabetic foot wound L ) Neuro: Denies: weakness in extremities Psych: Reports: other (Normal mood) Ernesto/Lymph: Denies: easy bruising PFSH ED PFSH: Medical History Dry gangrene Dyslipidemia Essential hypertension HTN (hypertension), benign Hypotestosteronemia in male Low back pain radiating down leg Major depressive disorder Tobacco dependency Uncontrolled type 2 diabetes mellitus, with long-term current use of insulin Surgical History History of amputation of toe Right second and left second and third History of eye surgery History of incision and drainage left foot History of total left hip arthroplasty Hx of cataract extraction Status post vasectomy Family History Father CAD (coronary artery disease) Diabetes Mother Cancer Chronic kidney disease (CKD) Diabetes Lung disease Grandmother Dementia Stroke Family/Other Suicide Other Hypertension Denies family history of Clotting disorder Anesthesia complication Bleeding disorder Social History Smoking and tobacco status: current every day smoker cigarettes Packs smoked per day: 1 Alcohol intake: former Physical Exam Const: COMMON NORMALS: alert HENMT: COMMON NORMALS: atraumatic HEAD & SCALP: atraumatic MOUTH: moist mucous membranes not abnormal Eye: COMMON NORMALS: EOMs intact bilaterally and conjunctivae normal CONJUNCTIVA: Yes conjunctivae normal Neck/C-Spine: COMMON NORMALS: full ROM and supple Resp: COMMON NORMALS: normal respiratory effort and clear to auscultation bilaterally AUSCULTATION: clear to auscultation bilaterally Cardio: COMMON NORMALS: regular rate RATE: regular rate GI: COMMON NORMALS: Soft to palpation and non-tender PALPATION: Yes Soft to palpation Extremity: COMMON NORMALS: full ROM OTHER: +L 2nd-5thfoot toe amputations with L lateral foot draining wound with erythema and edema Neuro: SENSORIUM/ORIENTATION: Yes alert MOTOR EXAM: No Abnormal motor stren gth present and Other motor observations present (no focal motor deficits) Psych: COMMON NORMALS: speech normal SPEECH: Yes normal speech MOOD & AFFECT: Yes euthymic mood Course Vital Signs: Vital signs: Vital Signs Temperature 98.2 F 06/14/21 16:12 Pulse Rate 93 06/14/21 16:12 Respiratory Rate 20 H 06/14/21 16:12 Blood Pressure 136/73 06/14/21 16:12 Pulse Oximetry 95 06/14/21 16:12 MDM - General Adult Medical Decision Making 60-year-old male with history of diabetic wound on the left foot since April presenting to the emergency room for concerns of wound infection. On arrival, patient is afebrile, patient is noted to have a draining left wound. He has a positive tissue biopsy for MRSA Work-up: CBC, BMP, ESR CRP, x-ray foot blood culture lactic acid Intervention, IVF, Vanco and Zosyn WBC of 15.0. Culture pending. Given concerns for MRSA osteomyelitis, patient will be admitted to hospital for further evaluation. Disposition: admission Lab Data : 06/14/21 17:01 06/14/21 17:01 Laboratory Results WBC 15.0 10^3/uL (4.0-10.0) H 06/14/21 17: RBC 3.90 10^6/uL (4.1-5.3) L 06/14/21 17:01 Hgb 11.3 g/dL (11.7-16.6) L 06/14/21 17: Hct 36.2 % (42.0-52.0) L 06/14/21 17: MCV 92.8 fl (80-94) 06/14/21 17: MCH 29.0 pg (28.0-34.0) 06/14/21 17: MCHC 31.2 g/dL (30.0-36.0) 06/14/21 17: RDW 13.9 % (12.1-15.1) 06/14/21 17: Plt Count 385 10^3/cmm (130-400) 06/14/21 17: MPV 10.8 fL (7.4-10.4) H 06/14/21 17: Neut % (Auto) 62.5 % 06/14/21 17: Lymph % (Auto) 17.5 % 06/14/21 17: [place] % (Auto) 9.3 % 06/14/21 17: Eos % (Auto) 9.3 % 06/14/21 17:01 Baso % (Auto) 0.8 % 06/14/21 17: Neut # (Auto) 9.39 10^3/uL (1.8-7.7) H 06/14/21 17:01 Lymph # (Auto) 2.6 10^3/uL (0.8-4.8) 06/14/21 17:01 [place] # (Auto) 1.4 10^3/uL (0.2-0.9) H 06/14/21 17: Eos # (Auto) 1.4 10^3/uL (0.0-0.8) H 06/14/21 17:01 Baso # (Auto) 0.1 10^3/uL (0.0-0.1) 06/14/21 17: Nucleated RBC % (auto) 0 % 06/14/21 17:01 Nucleated RBCs # 0.0 /100WBC 06/14/21 17:01 Sodium Cancelled 06/14/21 17:01 Potassium Cancelled 06/14/21 17:01 Chloride Cancelled 06/14/21 17:01 Carbon Dioxide Cancelled 06/14/21 17:01 Anion Gap Cancelled 06/14/21 17:01 BUN Cancelled 06/14/21 17:01 Creatinine Cancelled 06/14/21 17:01 GFR Calculation Cancelled 06/14/21 17:01 Glucose Cancelled 06/14/21 17:01 Calculated Osmolality Cancelled 06/14/21 17:01 Calcium Cancelled 06/14/21 17:01 C-Reactive Protein Cancelled 06/14/21 17:01 Discharge Plan Discharge Patient Disposition: Admitted As Inpatient Clinical Impression: Open wound, MRSA (methicillin resistant staph aureus) culture positive, Osteomyelitis Condition: Stable Coding Level of Care Code ED Highway Engineering Technician for Chg Fwd Exam Comprehensive
[2021-06-14 17:29] LABS: Basophils # 0.1 10^3/uL (0.0-0.1); Basophils % 0.8 %; Eosinophils # 1.4 10^3/uL (0.0-0.8); Eosinophils % 9.3 %; Hematocrit 36.2 % (42.0-52.0); Hemoglobin 11.3 g/dL (11.7-16.6); Lymphocytes # 2.6 10^3/uL (0.8-4.8); Lymphocytes % 17.5 %; Mean Corpuscular HGB Conc 31.2 g/dL (30.0-36.0); Mean Corpuscular Volume 92.8 fl (80-94); Mean Platelet Volume 10.8 fL (7.4-10.4); Monocytes # 1.4 10^3/uL (0.2-0.9); Monocytes % 9.3 %; Neutrophils # 9.39 10^3/uL (1.8-7.7); Neutrophils % 62.5 %; Nucleated Red Blood Cells % 0 %; Platelet Count 385 10^3/cmm (130-400); Red Cell Distribution Width 13.9 % (12.1-15.1)
[2021-06-14] MEDS: vancomycin 1,000 MG in sodium chloride 0.9% 250 ML 250 MG IV (17:47)
[2021-06-14] MEDS: sodium chloride 0.9% 1,000 ML 999 ML IV (17:48)
[2021-06-14 18:04] LABS: Erythrocyte Sedimentation Rate 77 mm/hr (0-10)
--- NOTE | 2021-06-14 18:31 | PM.HP ---
Providers/Chief Complaint Primary Care Provider: Juany Guajardo DO Chief Complaint: Patient states Raquela in rt foot, open wound History of Present Illness Marquis Ballard is a 60 year old male with a past medical history of type 2 diabetes mellitus, history of chronic left foot diabetic ulcer, with her history of osteomyelitis in the left foot, biopsy-proven, patient completed 3 or so weeks of IV antibiotics vancomycin and cefepime, issues with PICC line, issues with compliance, recently on Bactrim, but suffered complications with Bactrim therapy including hyperkalemia and JOSÉ, off antibiotics for least 2 weeks, has recurrent debridements of left foot, big toe in place, has 1/5 metatarsal amputation, fourth metatarsal stump, area of open wound, recently had debrided 06/11/2021, presents [facility] due to concerns for osteomyelitis in his foot, and concern for MRSA infection. No fevers, chills, no nausea, no vomiting. He had a bone biopsy told me and it showed that he had osteomyelitis. And now he was told by wound clinic that the culture showed MRSA he was told to come the emergency room. Review of Systems Const: Denies: fever(s) or chills Eyes: Denies: change in vision ENMT: Denies: nasal congestion Card: Denies: chest pain, palpitations or edema Resp: Denies: dyspnea, productive cough or non-productive cough GI: Denies: abdominal pain, nausea, vomiting or hematemesis : Denies: flank pain or difficulty urinating Musc: Denies: neck pain or back pain Skin/Breast: Denies: rash Neuro: Denies: headache(s) Psych: Denies: anxiety Endo: Denies: polyuria Medications/Allergies Home Medications Medication Instructions Recorded Confirmed Last Taken Type beta carotene 25,000 unit capsule 25,000 unit PO BID 10/06/19 06/07/21 04/09/21 06:30 History cholecalciferol (vitamin D3) 25 25 mcg PO QAM 10/06/19 06/07/21 04/09/21 06:30 History mcg (1,000 unit) capsule (Vitamin D3) multivitamin 1 tab PO DAILY 10/06/19 06/07/21 12/13/20 History acetaminophen 500 mg tablet 500 mg PO TID PRN #0 tab 10/27/19 06/07/21 04/09/21 06:30 Rx (Tylenol Extra Strength) 1,000 mg coenzyme Q10 100 mg capsule 100 mg PO DAILY 11/14/20 06/07/21 12/13/20 History (CoQ-10) cyanocobalamin (vitamin B-12) 100 100 mcg PO DAILY 11/14/20 06/07/21 12/13/20 History mcg tablet (Vitamin B-12) insulin aspart U-100 100 unit/mL See Rx Instructions .ROUTE .COMPLEX 11/14/20 06/07/21 04/08/21 History (3 mL) subcutaneous pen (Novolog Flexpen U-100 Insulin aspart) ascorbic acid (vitamin C) 1,000 mg 1 g PO QAM 12/13/20 06/07/21 04/09/21 06:30 History tablet (Vitamin C) metoprolol tartrate 25 mg tablet 25 mg PO BID #180 tab 01/22/21 06/07/21 04/09/21 06:30 Rx methocarbamol 500 mg tablet 500 mg PO BID PRN #60 tab 03/08/21 06/07/21 Unknown Rx atorvastatin 40 mg tablet 40 mg PO BEDTIME 03/15/21 06/07/21 04/08/21 History gabapentin 400 mg capsule 400 mg PO BID 03/15/21 06/07/21 04/09/21 06:30 History liraglutide 0.6 mg/0.1 mL (18 mg/3 1.8 mg SUBCUT QAM 03/15/21 06/07/21 04/08/21 History mL) subcutaneous pen injector (Victoza 3-John) metformin 1,000 mg tablet 1,000 mg PO BID 03/15/21 06/07/21 04/09/21 06:30 History blood sugar diagnostic (OneTouch #300 ea 04/04/21 06/07/21 Unknown Rx Ultra Test) duloxetine 60 mg capsule,delayed 60 mg PO BID #60 cap 04/30/21 06/07/21 Unknown Rx release fenofibrate nanocrystallized 145 145 mg PO BEDTIME #90 tab 06/07/21 06/07/21 Unknown Rx mg tablet insulin degludec 100 unit/mL (3 See Rx Instructions .ROUTE 06/07/21 06/07/21 Unknown Rx mL) subcutaneous pen (Tresiba .COMPLEX #15 ml FlexTouch U-100 insulin) tramadol 50 mg tablet 50 mg PO Q6H PRN 7 Days #28 tab 06/07/21 06/07/21 Unknown Rx aspirin 81 mg tablet,delayed 81 mg PO DAILY 06/14/21 06/14/21 06/14/21 History release trazodone 50 mg tablet 50 - 100 mg PO PRN PRN 06/14/21 Unknown History Allergies Allergy/AdvReac Type Severity Reaction Status Date / Time NSAIDS (Non-Steroidal Allergy Unknown ALGY-Anaphy Verified 06/07/21 14:33 Anti-Inflamma laxis,Unkno [NSAIDS (Non-Steroidal wn Anti-Inflammatory Drug)] oseltamivir [From Tamiflu] Allergy ADR-Nausea Verified 06/07/21 14:33 triethanolamine Allergy ALGY-Rash Verified 06/07/21 14:33 [From Cerumenex] heparin AdvReac Mild ADR-Vomitin Verified 06/07/21 14:33 g PFSH Acute PFSH: Medical History Dry gangrene Dyslipidemia Essential hypertension HTN (hypertension), benign Hypotestosteronemia in male Low back pain radiating down leg Major depressive disorder Tobacco dependency Uncontrolled type 2 diabetes mellitus, with long-term current use of insulin Surgical History History of amputation of toe Right second and left second and third History of eye surgery History of incision and drainage left foot History of total left hip arthroplasty Hx of cataract extraction Status post vasectomy Family History Father CAD (coronary artery disease) Diabetes Mother Cancer Chronic kidney disease (CKD) Diabetes Lung disease Grandmother Dementia Stroke Family/Other Suicide Other Hypertension Denies family history of Clotting disorder Anesthesia complication Bleeding disorder Social History Smoking and tobacco status: current every day smoker cigarettes Packs smoked per day: 1 Alcohol intake: former Vitals/I&O/Wt Last Vital Signs Temp 98.2 F 06/14/21 16:12 Pulse 93 06/14/21 16:12 Resp 20 H 06/14/21 16:12 BP 136/73 06/14/21 16:12 Pulse Ox 95 06/14/21 16:12 Weight last 48 hrs Weight 90.718 kg Physical Exam Const: COMMON NORMALS: no acute distress and patient oriented x3 HENMT: COMMON NORMALS: normocephalic HEAD & SCALP: normocephalic Eye: COMMON NORMALS: Equal, round and reactive pupils present Resp: COMMON NORMALS: normal respiratory effort, No retractions, No use of accessory muscles and clear to auscultation bilaterally AUSCULTATION: clear to auscultation bilaterally Cardio: COMMON NORMALS: regular rate, regular rhythm, S1 normal heart sound present and S2 normal heart sound present RATE: regular rate RHYTHM: regular rhythm HEART SOUNDS: S1 normal heart sound present and S2 normal heart sound present GI: COMMON NORMALS: Normal to inspection, nondistended, normoactive bowel sounds present, Soft to palpation, non-tender, No hepatosplenomegaly present and no masses Extremity: COMMON NORMALS: no pedal edema Neuro: COMMON NORMALS: patient oriented x3 OTHER: Left foot, fourth and fifth digit stumps Open wound, No active drainage Warmth, erythema Psych: COMMON NORMALS: mental status grossly normal Data : 06/14/21 17:01 06/14/21 17:51 Micro: Microbiology 06/14/21 17:12 Blood Culture - Preliminary Blood SPECIMEN COLLECTED 06/14/21 17:00 Blood Culture - Preliminary Blood SPECIMEN COLLECTED A&P Assessment and plan (1) Open wound: Status: Acute (2) Uncontrolled type 2 diabetes mellitus, with long-term current use of insulin: Status: Acute (3) Infected wound: Status: Acute (4) Diabetic neuropathy: Status: Acute Qualifiers: Diabetes mellitus type: type 2 Diabetes mellitus complication detail: diabetic polyneuropathy Qualified Code(s): E11.42 - Type 2 diabetes mellitus with diabetic polyneuropathy (5) Diabetic foot ulcer: Status: Acute (6) Major depressive disorder, recurrent episode, severe, with psychosis: Status: Acute (7) Foot osteomyelitis, left: Status: Acute Plan left foot osteomyelitis -Has received 2 weeks of IV antibiotics vancomycin, cefepime, through PICC line, discontinued due to issues with PICC line, and compliance, this is back in April -Had biopsy-proven osteomyelitis at that time -Since then he is followed up with wound care, infectious disease -Has been on Bactrim therapy suffered complications including JOSÉ hypokalemia -Has been off antibiotics since the last 2 weeks -Received debridement through wound care -He tells me he had a biopsy which showed osteomyelitis recently -He was told to come to wound care as his wound cultures were positive for MRSA -He does have pain in lower extremity Plan: -For now blood cultures -Wound cultures -Vancomycin, cefepime -Discussed with surgery service -We will do CT scan of left lower extremity -ESR, CRP, pro-River -We will likely place him PICC line -PT OT -Full code -Lovenox for DVT prophylaxis Type 2 diabetes mellitus, Levemir, 15 units twice daily, with moderate dose sliding scale Attestations Medical Necessity Statement*: Patient requires hospitalization for left foot osteomyelitis, requiring IV antibiotic therapy, inpatient, greater than 2 minutes Coding Level of Care Code Acute Jumpbasting Canvas Baster for Osmar Carrolld Diagnoses Open wound T14.8XXA Uncontrolled type 2 diabetes mellitus, with long-term current use of insulin E11.65; Z79.4 Infected wound T14.8XXA; L08.9 Diabetic neuropathy E11.42 Diabetes mellitus type: type 2 Diabetes mellitus complication detail: diabetic polyneuropathy Diabetic foot ulcer E11.621; L97.509 Major depressive disorder, recurrent episode, severe, with psychosis F33.3 Foot osteomyelitis, left M86.9
[2021-06-14 18:45] LABS: Procalcitonin 0.06 ng/mL (0-0.5)
[2021-06-14 19:21] LABS: Anion Gap 14.8 (5-19); Blood Urea Nitrogen 14 mg/dL (8-23); Calcium 9.4 mg/dL (8.5-10.5); Carbon Dioxide 25 mmol/L (22-29); Chloride 104 mmol/L (98-107); Glucose 129 mg/dL (65-115); Osmolality Calculated 290 mOsm/kg (285-295); Potassium 4.8 mmol/L (3.5-5.1); Sodium 139 mmol/L (136-145)
--- NOTE | 2021-06-14 22:22 | CTR_ITS ---
PROCEDURE INFORMATION: Exam: CT Left Lower Extremity With Contrast, Foot Exam date and time: 06/14/2021 10:22 PM Age: 60 years old Clinical indication: Cellulitis; Prior surgery; Surgery type: Digit amputation; Patient HX: Redness and swelling to left foot. ; Additional info: Osteomyeltiils TECHNIQUE: Imaging protocol: CT of the Left lower extremity with intravenous contrast was performed. Exam focused on the foot. Radiation optimization: All CT scans at this facility use at least one of these dose optimization techniques: automated exposure control; mA and/or kV adjustment per patient size (includes targeted exams where dose is matched to clinical indication); or iterative reconstruction. Contrast material: OMNI 300; Contrast volume: 95 ml; Contrast route: INTRAVENOUS (IV); COMPARISON: CT foot LT w con [id number] 04/09/2021 10:11 AM RADIATION DOSE METRICS: Total DLP (mGy-cm): 137.74 FINDINGS: Bones/joints: Chronic amputations of the 2nd and 3rd metatarsal phalangeal joint and the 4th and 5th metatarsal bodies. The amputation margins through the 4th and 5th metatarsals are somewhat indistinct and raise the possibility of osteomyelitis. No fracture or bone destruction. Soft tissues: There is dorsal subcutaneous edema and circumferential ankle edema. There is soft tissue swelling in the lateral foot but no fluid collection to suggest an abscess. CT/CT foot LT w con [id number] IMPRESSION: 1. Irregular amputation margins through the 4th and 5th metatarsals. This would raise the possibility of osteomyelitis which could be better assessed on MRI. 2. Lateral foot swelling without abscess. 3. Dorsal foot and ankle edema. 4. Chronic amputations
[2021-06-14 22:38] LABS: Glucose Point of Care 91 mg/dL (70-110)
[2021-06-14] MEDS: iohexol 300 mg/mL 100 mL Btl IV (22:40)
--- NOTE | 2021-06-14 23:27 | PC.PHAR ---
Pharmacokinetic dosing service Date: 06/14/21 Time: 2329 Objective: Patient: Marquis Ballard Floor: [id number] Age: 60 yo Serum creatinine: 1.0 mg/dL Height: 69.0 Inches Weight (kg): 90.718 Diagnosis: Relevant medical/social history: Cultures and sensitivities: Other labs: Assessment: IBW (kg): 70.70 Dosing wt(kg): 90.718 Estimated Creatinine clearance (ml/min): 77.6 CRCL method: Cockcroft and Gault using ibw(default). Drug selected: Vancomycin Loading dose (mg): 0 Vd (liters): 81.6 (factor used: 0.9 L/kg) Enmanuel (hr-1): 0.069 Half life (hrs): 10.05 Recommended dose: 1500 mg Interval: 12 hrs Infusion time (hrs): 1.5 Predicted peak (mcg/mL): 31.0 Predicted trough (mcg/mL): 15.02 Total body weight is being used for vancomycin dosing. Renal function is stable [ ] /unstable [ ] Recommendations: Give Vancomycin 1500 mg q 12 hrs with an expected Cpeak of 31.0 mcg/ml and an expected Ctrough of 15.02 mcg/ml Renal dosing of other antibiotics (review renal dosing of other medications and list guidelines here): Thank you for the consult, will continue to follow. Signature: Pippa Motta [facility]
[2021-06-14] MEDS: enoxaparin 40 mg/0.4 mL Syringe SUBCUT (23:28)
[2021-06-14] MEDS: fenofibrate 145 mg Tablet PO (23:28)
[2021-06-14] MEDS: atorvastatin 40 mg Tablet PO (23:29)
[2021-06-14] MEDS: morphine 4 mg/mL SDV 1 mL 1 MG IVP (23:29)
[2021-06-14] MEDS: cefepime 2,000 MG in sodium chloride 0.9% (plus) 50 ML 100 MG IV (23:30)
[2021-06-15] VITALS (7 sets, daily range): BP systolic 118–149; BP diastolic 69–83; PULSE 87–98; RESP 16–20; TEMP 36.1–37.3; O2SAT 93–98
[2021-06-15 04:58] LABS: Basophils # 0.1 10^3/uL (0.0-0.1); Basophils % 0.9 %; Eosinophils # 1.5 10^3/uL (0.0-0.8); Eosinophils % 10.7 %; Hematocrit 32.6 % (42.0-52.0); Hemoglobin 10.3 g/dL (11.7-16.6); Lymphocytes # 2.6 10^3/uL (0.8-4.8); Lymphocytes % 19.5 %; Mean Corpuscular HGB Conc 31.6 g/dL (30.0-36.0); Mean Corpuscular Hemoglobin 29.4 pg (28.0-34.0); Mean Corpuscular Volume 93.1 fl (80-94); Mean Platelet Volume 10.4 fL (7.4-10.4); Monocytes # 1.3 10^3/uL (0.2-0.9); Monocytes % 9.2 %; Neutrophils # 8.04 10^3/uL (1.8-7.7); Neutrophils % 59.2 %; Nucleated Red Blood Cells % 0 %; Platelet Count 389 10^3/cmm (130-400); White Blood Count 13.6 10^3/uL (4.0-10.0)
[2021-06-15 05:18] LABS: Alanine Aminotransferase 11 U/L (0-41); Albumin Level 2.8 g/dL (3.5-5.2); Alkaline Phosphatase 56 IU/L (40-130); Anion Gap 14.4 (5-19); Aspartate Amino Transferase 13 U/L (0-40); Blood Urea Nitrogen 12 mg/dL (8-23); C Reactive Protein 41.2 mg/L (0.0-4.9); Calcium 9.4 mg/dL (8.5-10.5); Carbon Dioxide 25 mmol/L (22-29); Chloride 104 mmol/L (98-107); Globulin 4.5 g/dL (1.3-4.6); Glomerular Filtration Rate 85.8 mL/min (90-130); Glucose 92 mg/dL (65-115); Magnesium 1.5 mg/dL (1.7-2.3); Osmolality Calculated 287 mOsm/kg (285-295); Phosphorus 3.6 mg/dL (2.5-4.5); Potassium 4.4 mmol/L (3.5-5.1); Sodium 139 mmol/L (136-145); Total Bilirubin 0.2 mg/dL (0.15-1.2); Total Protein 7.3 g/dL (6.6-8.7)
[2021-06-15 05:19] LABS: Chol HDL Ratio 3.85 mg/dL (1.0-5.00); Cholesterol 100 mg/dL (0-200); HDL Cholesterol 26 mg/dL (60-100); LDL Cholesterol Calculated 50 mg/dL (50-129); LDL HDL Ratio 1.92 RATIO (0.00-3.22); Triglycerides 119 mg/dL (0-150)
[2021-06-15 05:20] LABS: INR 1.17 (0.8-1.2)
[2021-06-15 05:23] LABS: Procalcitonin 0.06 ng/mL (0-0.5)
[2021-06-15 05:58] LABS: Estmated Average Glucose 189; Hemoglobin A1C 8.2 % (4.0-6.0)
[2021-06-15] MEDS: vancomycin 1,500 MG/300 ML PIGGYBACK 200 MG IV (06:01)
[2021-06-15] MEDS: cholecalciferol (vitamin D3) 1,000 unit Tablet 1000 UNIT PO (06:01)
[2021-06-15] MEDS: aspirin 325 mg Tablet PO (06:01)
[2021-06-15 06:42] LABS: Glucose Point of Care 90 mg/dL (70-110)
[2021-06-15] MEDS: duloxetine 60 mg Capsule PO ×2 (08:05→18:08)
[2021-06-15] MEDS: pantoprazole DR 40 mg Tablet PO (08:05)
[2021-06-15] MEDS: gabapentin 400 mg Capsule PO ×2 (08:05→18:09)
[2021-06-15] MEDS: metoprolol tartrate 25 mg Tablet PO ×2 (08:05→18:09)
--- NOTE | 2021-06-15 09:48 | PC.CHAP ---
Pastoral Care Encounter/Spiritual Assessment Type of Contact [] Declined seat trimmer visit [] Patient/Family/Request visit [] Outpatient visit [] Follow-up visit [] Physician referral [] Code/Alert [x] Routine visit [] Staff referral [] Actively dying [] Patient sleeping [] Family support [] [] Out of room [] Palliative care [] [] Receiving care in room [] Pre-surgical visit [] Trauma [] Long length of stay [] ICU visit [] Other: Relational/Emotional Strength [x] Patient feels connected with others/family/visitors/staff [] Distress [] Loneliness/isolation [] Abandonment Spirituality of Patient [x] Person of [place] [x] Attends Restorationism of their [place] [x] Believes in Prayer [] Reads Bible or Zoroastrianism materials [] There are Spiritual issues to be addressed [employer] 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 Interventions [x] Prayer []x Active listening [xx] Non-anxious presence [x] Spiritual/emotional support [] Crisis/trauma care [] Spiritual counseling [] Bereavement support [] Provided bereavement packet [] Provided Bible/devotional materials [] Provided toy/stuffed animal, coloring book to patient or family member [] Provided Communion [] Anointing/[place] [] Salvation [x] Completed spiritual assessment [] Other: Impact on Illness or Injury [] Angry [] Fearful [] Anxious [] Often cries [] Exhaustion [] Unable to work [] Unable to attend adventism [] Unable to walk/stand [] Unable to read [] Unable to drive [] Unable to eat/drink [] Unable to sleep [] Unable to be with family [] Patient intubated [] Other: Summary Time spent with patient 10 min
[2021-06-15 11:20] LABS: Glucose Point of Care 196 mg/dL (70-110)
[2021-06-15] MEDS: cefepime 2,000 MG in sodium chloride 0.9% (plus) 50 ML 100 MG IV ×2 (11:43→22:22)
[2021-06-15] MEDS: insulin lispro 100 unit/1 mL SUBCUT ×2 (11:47→18:10)
--- NOTE | 2021-06-15 12:23 | PM.CONSULT ---
Providers/Reason For Consult Consulting Physician/Specialty*: Hospitalist service Reason for Consult*: Wound management Attending Physician: Dash Martini MD Primary Care Provider: Juany Guajardo DO History of Present Illness History of Present Illness Marquis Ballard is a 60 year old male with chronic lower extremity issues secondary to diabetes and has had multiple rounds of antibiotics including IV antibiotics for osteomyelitis. He was recently noted to have staph aureus in his wound cultures and was therefore hospitalized for IV antibiotics. Patient mainly complains of deep left foot pain. Denies any fevers or chills.Over the years he has had his second third fourth and fifth left toes amputated and has a wound VAC on the wound on his left fifth toe. Review of Systems General: Reports: 10 or more systems reviewed and unremarkable except in HPI and below Medications/Allergies Home Medications Medication Instructions Recorded Confirmed Last Taken Type beta carotene 25,000 unit capsule 25,000 unit PO BID 10/06/19 06/14/21 06/14/21 History cholecalciferol (vitamin D3) 25 25 mcg PO QAM 10/06/19 06/14/21 06/14/21 History mcg (1,000 unit) capsule (Vitamin D3) multivitamin 1 tab PO DAILY 10/06/19 06/14/21 06/14/21 History acetaminophen 500 mg tablet 500 mg PO TID PRN #0 tab 10/27/19 06/14/21 04/09/21 06:30 Rx (Tylenol Extra Strength) 1,000 mg coenzyme Q10 100 mg capsule 100 mg PO DAILY 11/14/20 06/14/21 06/14/21 History (CoQ-10) cyanocobalamin (vitamin B-12) 100 100 mcg PO DAILY 11/14/20 06/14/21 06/14/21 History mcg tablet (Vitamin B-12) insulin aspart U-100 100 unit/mL See Rx Instructions .ROUTE .COMPLEX 11/14/20 06/14/21 06/14/21 History (3 mL) subcutaneous pen (Novolog Flexpen U-100 Insulin aspart) ascorbic acid (vitamin C) 1,000 mg 1 g PO QAM 12/13/20 06/14/21 06/14/21 History tablet (Vitamin C) metoprolol tartrate 25 mg tablet 25 mg PO BID #180 tab 01/22/21 06/14/21 06/14/21 Rx methocarbamol 500 mg tablet 500 mg PO BID PRN #60 tab 03/08/21 06/14/21 06/14/21 Rx atorvastatin 40 mg tablet 40 mg PO BEDTIME 03/15/21 06/14/21 06/13/21 History gabapentin 400 mg capsule 400 mg PO TID 03/15/21 06/14/21 06/14/21 History liraglutide 0.6 mg/0.1 mL (18 mg/3 1.8 mg SUBCUT QAM 03/15/21 06/14/21 06/14/21 History mL) subcutaneous pen injector (Victoza 3-John) metformin 1,000 mg tablet 1,000 mg PO BID 03/15/21 06/14/21 06/14/21 History blood sugar diagnostic (OneTouch #300 ea 04/04/21 06/14/21 Unknown Rx Ultra Test) duloxetine 60 mg capsule,delayed 60 mg PO BID #60 cap 04/30/21 06/14/21 06/14/21 Rx release fenofibrate nanocrystallized 145 145 mg PO BEDTIME #90 tab 06/07/21 06/14/21 06/13/21 Rx mg tablet insulin degludec 100 unit/mL (3 See Rx Instructions .ROUTE 06/07/21 06/14/21 06/14/21 Rx mL) subcutaneous pen (Tresiba .COMPLEX #15 ml FlexTouch U-100 insulin) tramadol 50 mg tablet 50 mg PO Q6H PRN 7 Days #28 tab 06/07/21 06/14/21 06/14/21 Rx aspirin 81 mg tablet,delayed 81 mg PO DAILY 06/14/21 06/14/21 06/14/21 History release trazodone 50 mg tablet 50 - 100 mg PO PRN PRN 06/14/21 06/14/21 Unknown History Allergies Allergy/AdvReac Type Severity Reaction Status Date / Time Sulfa (Sulfonamide Allergy Mild Unknown Verified 06/15/21 22:31 Antibiotics) heparin Allergy Unknown Unknown Unverified 06/15/21 23:20 NSAIDS (Non-Steroidal Allergy Unknown ALGY-Anaphy Verified 06/14/21 18:53 Anti-Inflamma laxis,Unkno [NSAIDS (Non-Steroidal wn Anti-Inflammatory Drug)] oseltamivir [From Tamiflu] Allergy ADR-Nausea Verified 06/14/21 18:53 triethanolamine Allergy ALGY-Rash Verified 06/14/21 18:53 [From Cerumenex] Current Medications Generic Name Dose Route Start Last Admin Trade Name Yung PRN Reason Stop Dose Admin Aspirin 325 mg 06/15/21 06:00 06/15/21 06:01 Aspirin 325 Mg Tablet PO 325 mg QAM BRIANA Administration Atorvastatin Calcium 40 mg 06/14/21 22:22 06/14/21 23:29 Atorvastatin 40 Mg Tablet PO 40 mg BEDTIME BRIANA Administration Duloxetine HCl 60 mg 06/15/21 09:00 06/15/21 08:05 Duloxetine 60 Mg Capsule PO 60 mg BID BRIANA Administration Enoxaparin Sodium 40 mg 06/14/21 23:00 06/14/21 23:28 Enoxaparin 40 Mg/0.4 Ml Syringe SUBCUT 40 mg Q24H BRIANA Administration Fenofibrate 145 mg 06/14/21 22:22 06/14/21 23:28 Fenofibrate 145 Mg Tablet PO 145 mg BEDTIME BRIANA Administration Gabapentin 400 mg 06/15/21 09:00 06/15/21 08:05 Gabapentin 400 Mg Capsule PO 400 mg BID BRIANA Administration Cefepime HCl 2,000 mg/ Sodium 50 mls @ 100 mls/hr 06/14/21 23:00 06/15/21 12:20 Chloride IV Infused Q12H BRIANA Infusion Protocol Vancomycin/PEG/NADA/Lysine/Water 1,500 mg in 300 mls @ 200 mls/hr 06/15/21 06:00 06/15/21 07:41 Vancocin IV Infused Q12H BRIANA Infusion Insulin Detemir 15 unit 06/15/21 08:00 06/15/21 11:47 Insulin Detemir 100 Units/1 Ml SUBCUT 15 unit Q12H BRIANA Administration Insulin Human Lispro 0 unit 06/15/21 08:00 06/15/21 11:47 Insulin Lispro 100 Unit/1 Ml SUBCUT 6 unit TIDWM BRIANA Administration Protocol Metoprolol Tartrate 25 mg 06/15/21 09:00 06/15/21 08:05 Metoprolol Tartrate 25 Mg Tablet PO 25 mg BID BRIANA Administration Morphine Sulfate 1 mg 06/14/21 22:22 06/14/21 23:29 Morphine 4 Mg/Ml Sdv 1 Ml IVP 1 mg Q4H PRN Administration SEVERE PAIN Pantoprazole Sodium 40 mg 06/15/21 09:00 06/15/21 08:[address] 40 Mg Tablet PO 40 mg DAILY BRIANA Administration Vitamin D 1,000 unit 06/15/21 06:00 06/15/21 06:01 Cholecalciferol (Vitamin D3) 1,000 Unit Tablet PO 1,000 unit QAM BRIANA Administration PFSH Acute PFSH: Medical History Dry gangrene Dyslipidemia Essential hypertension HTN (hypertension), benign Hypotestosteronemia in male Low back pain radiating down leg Major depressive disorder Tobacco dependency Uncontrolled type 2 diabetes mellitus, with long-term current use of insulin Surgical History History of amputation of toe Right second and left second and third History of eye surgery History of incision and drainage left foot History of total left hip arthroplasty Hx of cataract extraction Status post vasectomy Family History Father CAD (coronary artery disease) Diabetes Mother Cancer Chronic kidney disease (CKD) Diabetes Lung disease Grandmother Dementia Stroke Family/Other Suicide Other Hypertension Denies family history of Clotting disorder Anesthesia complication Bleeding disorder Social History Smoking and tobacco status: current every day smoker cigarettes Packs smoked per day: 1 Alcohol intake: former Vitals/I&O/Wt Last Vital Signs Temp 97.7 F 06/15/21 12:00 Pulse 87 06/15/21 12:00 Resp 16 06/15/21 12:00 BP 139/75 06/15/21 12:00 Pulse Ox 93 06/15/21 12:00 06/14/21 06/15/21 06/15/21 22:59 06:59 14:59 Intake Total 50 / 50 710 / 710 Output Total 1200 / 1200 400 / 400 Balance -1150 / -1150 310 / 310 Weight last 48 hrs Weight 207 lb 2 oz Weight 200 lb Physical Exam Narrative: HEENT: Normocephalic Eye: Sclera /conjunctiva normal Neurological: Oriented to place person and time Skin: Intact, amputation of left second, third and fourth toe, wound measuring 4.2 x 2.1 x 1 cm had minimal necrotic tissue Data : 06/16/21 04:15 06/16/21 04:15 Micro: Microbiology 06/14/21 17:12 Blood Culture - Preliminary Blood SPECIMEN COLLECTED 06/14/21 17:00 Blood Culture - Preliminary Blood SPECIMEN COLLECTED A&P Assessment and plan (1) Open wound: 60-year-old male with diabetes, osteomyelitis and multiple amputations of his left toes who presents with chronic wound over the site of amputation of his left fifth toe. Using scissors, the wound was debrided of necrotic slough and there was punctate bleeding noted. Okay to proceed with placement of wound VAC that he had brought from home. Status: Acute Coding Level of Care Code Acute New Accounts Clerk for [facility] Diagnoses Open wound T14.8XXA
--- NOTE | 2021-06-15 13:20 | PC.OT ---
See PT note. Skilled OT not required at this time. Patient refused to deanne boot for ot eval.
--- NOTE | 2021-06-15 13:40 | PM.PN ---
Subjective Subjective: Patient was seen this morning, he tells me that he rather go on IV antibiotics and going to [facility], he has to take care of his , does have some pain in his left lower extremity Vitals/I&O/Wt Last Vital Signs Temp 97.7 F 06/15/21 12:00 Pulse 87 06/15/21 12:00 Resp 16 06/15/21 12:00 BP 139/75 06/15/21 12:00 Pulse Ox 93 06/15/21 12:00 06/14/21 06/15/21 06/15/21 22:59 06:59 14:59 Intake Total 50 / 50 710 / 710 Output Total 1200 / 1200 400 / 400 Balance -1150 / -1150 310 / 310 Weight last 48 hrs Weight 93.95 kg Weight 90.718 kg Physical Exam Const: COMMON NORMALS: no acute distress and patient oriented x3 Neck/C-Spine: COMMON NORMALS: no JVD Resp: COMMON NORMALS: normal respiratory effort, No retractions, No use of accessory muscles and clear to auscultation bilaterally AUSCULTATION: clear to auscultation bilaterally Cardio: COMMON NORMALS: no JVD, regular rate, regular rhythm, S1 normal heart sound present and S2 normal heart sound present RATE: regular rate RHYTHM: regular rhythm HEART SOUNDS: S1 normal heart sound present and S2 normal heart sound present GI: COMMON NORMALS: Normal to inspection, nondistended, normoactive bowel sounds present, Soft to palpation, non-tender and No hepatosplenomegaly present PALPATION: Yes Soft to palpation and Yes No hepatosplenomegaly present Extremity: COMMON NORMALS: no pedal edema Neuro: COMMON NORMALS: patient oriented x3 Psych: COMMON NORMALS: mental status grossly normal Data : 06/15/21 04:18 06/15/21 04:18 Micro: Microbiology 06/14/21 17:12 Blood Culture - Preliminary Blood SPECIMEN COLLECTED 06/14/21 17:00 Blood Culture - Preliminary Blood SPECIMEN COLLECTED A&P Assessment and plan (1) Open wound: Status: Acute (2) Uncontrolled type 2 diabetes mellitus, with long-term current use of insulin: Status: Acute (3) Infected wound: Status: Acute (4) Diabetic neuropathy: Status: Acute Qualifiers: Diabetes mellitus type: type 2 Diabetes mellitus complication detail: diabetic polyneuropathy Qualified Code(s): E11.42 - Type 2 diabetes mellitus with diabetic polyneuropathy (5) Diabetic foot ulcer: Status: Acute (6) Major depressive disorder, recurrent episode, severe, with psychosis: Status: Acute (7) Foot osteomyelitis, left: Status: Acute (8) Cellulitis of left foot: Status: Acute Plan left foot osteomyelitis -Has received 2 weeks of IV antibiotics vancomycin, cefepime, through PICC line, discontinued due to issues with PICC line, and compliance, this is back in April -Had biopsy-proven osteomyelitis at that time -Since then he is followed up with wound care, infectious disease -Has been on Bactrim therapy suffered complications including JOSÉ hypokalemia -Has been off antibiotics since the last 2 weeks -Received debridement through wound care -He tells me he had a biopsy which showed osteomyelitis recently -He was told to come to wound care as his wound cultures were positive for MRSA -He does have pain in lower extremity -CT left lower extremity 1. Irregular amputation margins through the 4th and 5th metatarsals.? This would raise the possibility of osteomyelitis which could be better assessed on MRI.? 2. Lateral foot swelling without abscess. 3. Dorsal foot and ankle edema. 4. 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
[2021-06-15 16:52] LABS: Glucose Point of Care 221 mg/dL (70-110)
[2021-06-15] MEDS: vancomycin 1,500 MG/300 ML PIGGYBACK 300 MG IV (18:10)
[2021-06-15] MEDS: trazodone 50 mg Tablet PO (20:04)
[2021-06-15] MEDS: fenofibrate 145 mg Tablet PO (20:04)
[2021-06-15] MEDS: atorvastatin 40 mg Tablet PO (20:04)
[2021-06-15 21:17] LABS: Glucose Point of Care 172 mg/dL (70-110)
[2021-06-15] MEDS: enoxaparin 40 mg/0.4 mL Syringe SUBCUT (22:22)
[2021-06-16] VITALS (7 sets, daily range): BP systolic 113–150; BP diastolic 67–78; PULSE 79–90; RESP 16–19; TEMP 36.4–36.8; O2SAT 93–97
[2021-06-16 05:01] LABS: Basophils # 0.1 10^3/uL (0.0-0.1); Eosinophils # 1.3 10^3/uL (0.0-0.8); Eosinophils % 9.5 %; Hematocrit 33.3 % (42.0-52.0); Hemoglobin 10.5 g/dL (11.7-16.6); Lymphocytes # 2.1 10^3/uL (0.8-4.8); Lymphocytes % 15.7 %; Mean Corpuscular HGB Conc 31.5 g/dL (30.0-36.0); Mean Corpuscular Hemoglobin 29.1 pg (28.0-34.0); Mean Corpuscular Volume 92.2 fl (80-94); Mean Platelet Volume 10.6 fL (7.4-10.4); Monocytes # 1.4 10^3/uL (0.2-0.9); Neutrophils # 8.56 10^3/uL (1.8-7.7); Neutrophils % 63.1 %; Nucleated Red Blood Cells % 0 %; Platelet Count 400 10^3/cmm (130-400); Red Blood Count 3.61 10^6/uL (4.1-5.3); Red Cell Distribution Width 13.6 % (12.1-15.1); White Blood Count 13.5 10^3/uL (4.0-10.0)
[2021-06-16 05:26] LABS: INR 1.22 (0.8-1.2); Procalcitonin 0.05 ng/mL (0-0.5)
[2021-06-16 05:37] LABS: Alanine Aminotransferase 11 U/L (0-41); Albumin Level 3.1 g/dL (3.5-5.2); Alkaline Phosphatase 57 IU/L (40-130); Anion Gap 15.7 (5-19); Aspartate Amino Transferase 13 U/L (0-40); Blood Urea Nitrogen 17 mg/dL (8-23); C Reactive Protein 24.8 mg/L (0.0-4.9); Calcium 8.8 mg/dL (8.5-10.5); Carbon Dioxide 22 mmol/L (22-29); Chloride 105 mmol/L (98-107); Glomerular Filtration Rate 61.6 mL/min (90-130); Glucose 197 mg/dL (65-115); Magnesium 1.6 mg/dL (1.7-2.3); Osmolality Calculated 293 mOsm/kg (285-295); Phosphorus 4.2 mg/dL (2.5-4.5); Potassium 4.7 mmol/L (3.5-5.1); Sodium 138 mmol/L (136-145); Total Bilirubin 0.2 mg/dL (0.15-1.2); Total Protein 7.1 g/dL (6.6-8.7)
[2021-06-16] MEDS: vancomycin 1,500 MG/300 ML PIGGYBACK 300 MG IV (06:15)
[2021-06-16] MEDS: aspirin 325 mg Tablet PO (06:16)
[2021-06-16] MEDS: cholecalciferol (vitamin D3) 1,000 unit Tablet 1000 UNIT PO (06:16)
[2021-06-16 06:36] LABS: Glucose Point of Care 166 mg/dL (70-110)
[2021-06-16] MEDS: insulin lispro 100 unit/1 mL SUBCUT ×3 (09:38→18:25)
[2021-06-16] MEDS: metoprolol tartrate 25 mg Tablet PO ×2 (09:39→18:25)
[2021-06-16] MEDS: duloxetine 60 mg Capsule PO ×2 (09:39→18:25)
[2021-06-16] MEDS: pantoprazole DR 40 mg Tablet PO (09:39)
[2021-06-16] MEDS: gabapentin 400 mg Capsule PO ×2 (09:39→18:24)
[2021-06-16] MEDS: cefepime 2,000 MG in sodium chloride 0.9% (plus) 50 ML 100 MG IV ×2 (11:13→22:10)
[2021-06-16 11:29] LABS: Glucose Point of Care 176 mg/dL (70-110)
--- NOTE | 2021-06-16 14:37 | PM.PN ---
Subjective Subjective: Patient was seen this morning, sitting up to the side of the bed, he had a wound VAC placed this morning, no fevers, no chills, nausea, vomiting Vitals/I&O/Wt Last Vital Signs Temp 97.7 F 06/16/21 10:56 Pulse 80 06/16/21 10:56 Resp 16 06/16/21 10:56 BP 131/74 06/16/21 10:56 Pulse Ox 97 06/16/21 10:56 06/15/21 06/16/21 06/16/21 22:59 06:59 14:59 Intake Total 540 / 1730 400 / 2130 830 / 830 Output Total 425 / 1275 1200 / 2475 400 / 400 Balance 115 / 455 -800 / -345 430 / 430 Weight last 48 hrs Weight 94.619 kg Weight 93.95 kg Weight 90.718 kg Physical Exam Const: COMMON NORMALS: no acute distress and patient oriented x3 Resp: COMMON NORMALS: normal respiratory effort, No retractions, No use of accessory muscles and clear to auscultation bilaterally AUSCULTATION: clear to auscultation bilaterally Cardio: COMMON NORMALS: regular rate, regular rhythm, S1 normal heart sound present and S2 normal heart sound present RATE: regular rate RHYTHM: regular rhythm HEART SOUNDS: S1 normal heart sound present and S2 normal heart sound present GI: COMMON NORMALS: Normal to inspection, nondistended, normoactive bowel sounds present, Soft to palpation, non-tender and No hepatosplenomegaly present PALPATION: Yes Soft to palpation and Yes No hepatosplenomegaly present Extremity: COMMON NORMALS: no pedal edema NARRATIVE EXTREMITY EXAM: Left lower extremity wound VAC in place Neuro: COMMON NORMALS: patient oriented x3 Psych: COMMON NORMALS: mental status grossly normal Data : 06/16/21 04:15 06/16/21 04:15 Micro: Microbiology 06/14/21 17:12 Blood Culture - Preliminary Blood NEGATIVE TO DATE 06/14/21 17:00 Blood Culture - Preliminary Blood NEGATIVE TO DATE A&P Assessment and plan (1) Open wound: Status: Acute (2) Uncontrolled type 2 diabetes mellitus, with long-term current use of insulin: Status: Acute (3) Infected wound: Status: Acute (4) Diabetic neuropathy: Status: Acute Qualifiers: Diabetes mellitus type: type 2 Diabetes mellitus complication detail: diabetic polyneuropathy Qualified Code(s): E11.42 - Type 2 diabetes mellitus with diabetic polyneuropathy (5) Diabetic foot ulcer: Status: Acute (6) Major depressive disorder, recurrent episode, severe, with psychosis: Status: Acute (7) Foot osteomyelitis, left: Status: Acute (8) Cellulitis of left foot: Status: Acute Plan left foot osteomyelitis -Has received 2 weeks of IV antibiotics vancomycin, cefepime, through PICC line, discontinued due to issues with PICC line, and compliance, this is back in April -Had biopsy-proven osteomyelitis at that time -Since then he is followed up with wound care, infectious disease -Has been on Bactrim therapy suffered complications including JOSÉ hypokalemia -Has been off antibiotics since the last 2 weeks -Received debridement through wound care -He tells me he had a biopsy which showed osteomyelitis recently -He was told to come to wound care as his wound cultures were positive for MRSA -He does have pain in lower extremity -CT left lower extremity 1. Irregular amputation margins through the 4th and 5th metatarsals.? This would raise the possibility of osteomyelitis which could be better assessed on MRI.? 2. Lateral foot swelling without abscess. 3. Dorsal foot and ankle edema. 4. Chronic amputations Plan: -For now blood cultures -Wound cultures -Vancomycin, cefepime -Discussed with surgery service, wound VAC placed -ESR 77 -We will discuss with infectious disease, oral antibiotics versus PICC line, IV antibiotics for 6 weeks -PT OT -Full code -Lovenox for DVT prophylaxis Type 2 diabetes mellitus, Levemir, 15 units twice daily, with moderate dose sliding scale Attestations Medical Necessity Statement*: Patient requires hospitalization for left lower extremity cellulitis, osteomyelitis, requiring IV antibiotic Coding Level of Care Code Acute Corporate Consultant for [facility] Fw Diagnoses Open wound T14.8XXA Uncontrolled type 2 diabetes mellitus, with long-term current use of insulin E11.65; Z79.4 Infected wound T14.8XXA; L08.9 Diabetic neuropathy E11.42 Diabetes mellitus type: type 2 Diabetes mellitus complication detail: diabetic polyneuropathy Diabetic foot ulcer E11.621; L97.509 Major depressive disorder, recurrent episode, severe, with psychosis F33.3 Foot osteomyelitis, left M86.9 Cellulitis of left foot L03.116
[2021-06-16 17:22] LABS: Glucose Point of Care 318 mg/dL (70-110)
[2021-06-16 18:12] LABS: Vancomycin Trough 22.4 ug/mL (10-15)
[2021-06-16 20:06] LABS: Glucose Point of Care 369 mg/dL (70-110)
[2021-06-16] MEDS: trazodone 50 mg Tablet PO (20:06)
[2021-06-16] MEDS: fenofibrate 145 mg Tablet PO (20:09)
[2021-06-16] MEDS: atorvastatin 40 mg Tablet PO (20:09)
--- NOTE | 2021-06-16 20:57 | PC.PHAR ---
Pharmacokinetic dosing service Date: 06/16/21 Time: 2099 Patient: Floor: Weight: 94.619 Kilograms Vancomycin single level analysis: Current dose being given: mg Current dosing interval: hrs Current infusion time (hrs): 1.5 Single level Trough Data: Trough level obtained: 22.4 mcg/ml Timing of trough - # of hrs before next dose: 0.75 Hrs Desired peak: 40 mcg/ml Desired trough: 15 mcg/ml Diagnosis: Relevant medical/social history: Cultures and sensitivities: Other labs: Estimated PK Parameters: New rate constant (sakina): 0.052 hr-1 Half-life: 13.33 Hours Vd from levels: 85.16 Liters (0.7 L/kg) CLvanco=?? 4.428 L/hr Estimated New Dose and Interval Recommended dose: 2315.2 mg Recommended interval: 20.4 Hrs Patient response: Patient is responding to treatment [yes/no] wbc decreasing, S/SX reduced [yes/no] Renal function is stable/unstable Recommendations: Give Vancomycin 1500 mg q 18 hrs. Infuse over 1.5 hrs Expected Cpeak: 27.9 mcg/mL Expected Ctrough: 11.8 mcg/mL AUC 0-24 /ROSELYN Data: ROSELYN 0.5 mcg/mL:?? AUC/ROSELYN:? 903.3 ROSELYN 1.0 mcg/mL:?? AUC/ROSELYN:? 451.7 Recommended labs and intervals: Measure Bun and Scr 3 times/week. Renal dosing of other antibiotics (review renal dosing of other medications and list guidelines here): Thank you for the consult, will continue to follow. Signature: Pippa Motta [facility]
[2021-06-16] MEDS: enoxaparin 40 mg/0.4 mL Syringe SUBCUT (22:13)
[2021-06-16] MEDS: vancomycin 1,500 MG/300 ML PIGGYBACK 200 MG IV (23:57)
[2021-06-17 03:55] VITALS: BP 118/65; PULSE 90; RESP 17; TEMP 36.6; O2SAT 94
[2021-06-17 04:40] LABS: Basophils # 0.1 10^3/uL (0.0-0.1); Basophils % 0.9 %; Eosinophils % 7.4 %; Hematocrit 34.6 % (42.0-52.0); Hemoglobin 10.4 g/dL (11.7-16.6); Lymphocytes # 2.3 10^3/uL (0.8-4.8); Lymphocytes % 17.7 %; Mean Corpuscular HGB Conc 30.1 g/dL (30.0-36.0); Mean Corpuscular Hemoglobin 29.1 pg (28.0-34.0); Mean Corpuscular Volume 96.6 fl (80-94); Mean Platelet Volume 10.5 fL (7.4-10.4); Monocytes # 1.3 10^3/uL (0.2-0.9); Monocytes % 10.4 %; Neutrophils # 8.12 10^3/uL (1.8-7.7); Neutrophils % 62.8 %; Nucleated Red Blood Cells % 0 %; Platelet Count 357 10^3/cmm (130-400); Red Blood Count 3.58 10^6/uL (4.1-5.3); Red Cell Distribution Width 13.4 % (12.1-15.1); White Blood Count 12.9 10^3/uL (4.0-10.0)
[2021-06-17 05:02] LABS: Alanine Aminotransferase 10 U/L (0-41); Albumin Level 3.1 g/dL (3.5-5.2); Alkaline Phosphatase 55 IU/L (40-130); Anion Gap 14.8 (5-19); Aspartate Amino Transferase 12 U/L (0-40); Blood Urea Nitrogen 20 mg/dL (8-23); Calcium 8.5 mg/dL (8.5-10.5); Carbon Dioxide 22 mmol/L (22-29); Chloride 103 mmol/L (98-107); Globulin 3.2 g/dL (1.3-4.6); Glomerular Filtration Rate 68.1 mL/min (90-130); Glucose 320 mg/dL (65-115); Magnesium 1.6 mg/dL (1.7-2.3); Osmolality Calculated 295 mOsm/kg (285-295); Potassium 4.8 mmol/L (3.5-5.1); Sodium 135 mmol/L (136-145); Total Bilirubin 0.2 mg/dL (0.15-1.2); Total Protein 6.3 g/dL (6.6-8.7)
[2021-06-17] MEDS: cholecalciferol (vitamin D3) 1,000 unit Tablet 1000 UNIT PO (05:06)
[2021-06-17] MEDS: aspirin 325 mg Tablet PO (05:06)
[2021-06-17 06:44] LABS: Glucose Point of Care 274 mg/dL (70-110)
[2021-06-17 07:15] VITALS: BP 144/73; PULSE 80; RESP 16; TEMP 36.4; O2SAT 92
[2021-06-17] MEDS: insulin lispro 100 unit/1 mL SUBCUT ×3 (08:05→17:38)
[2021-06-17] MEDS: metoprolol tartrate 25 mg Tablet PO ×2 (08:06→17:39)
[2021-06-17] MEDS: gabapentin 400 mg Capsule PO ×2 (08:06→17:39)
[2021-06-17] MEDS: pantoprazole DR 40 mg Tablet PO (08:06)
[2021-06-17] MEDS: duloxetine 60 mg Capsule PO ×2 (08:06→17:39)
--- NOTE | 2021-06-17 10:29 | PM.PN ---
Subjective Subjective: Patient was seen this morning, no complaints overnight, no fevers, no chills Vitals/I&O/Wt Last Vital Signs Temp 97.6 F 06/17/21 07:15 Pulse 80 06/17/21 07:15 Resp 16 06/17/21 07:15 BP 144/73 06/17/21 07:15 Pulse Ox 92 06/17/21 07:15 06/16/21 06/17/21 06/17/21 21:59 06:59 14:59 Intake Total 1080 / 1080 Output Total 600 / 600 Balance 480 / 480 Weight last 48 hrs Weight 94.619 kg Physical Exam Const: COMMON NORMALS: no acute distress and patient oriented x3 Resp: COMMON NORMALS: normal respiratory effort, No retractions, No use of accessory muscles and clear to auscultation bilaterally AUSCULTATION: clear to auscultation bilaterally Cardio: COMMON NORMALS: regular rate, regular rhythm, S1 normal heart sound present and S2 normal heart sound present RATE: regular rate RHYTHM: regular rhythm HEART SOUNDS: S1 normal heart sound present and S2 normal heart sound present GI: COMMON NORMALS: Normal to inspection, nondistended, normoactive bowel sounds present, Soft to palpation, non-tender and No hepatosplenomegaly present PALPATION: Yes Soft to palpation and Yes No hepatosplenomegaly present Extremity: COMMON NORMALS: no pedal edema Neuro: COMMON NORMALS: patient oriented x3 Psych: COMMON NORMALS: mental status grossly normal Data : 06/17/21 04:16 06/17/21 04:16 A&P Assessment and plan (1) Open wound: Status: Acute (2) Uncontrolled type 2 diabetes mellitus, with long-term current use of insulin: Status: Acute (3) Infected wound: Status: Acute (4) Diabetic neuropathy: Status: Acute Qualifiers: Diabetes mellitus type: type 2 Diabetes mellitus complication detail: diabetic polyneuropathy Qualified Code(s): E11.42 - Type 2 diabetes mellitus with diabetic polyneuropathy (5) Diabetic foot ulcer: Status: Acute (6) Major depressive disorder, recurrent episode, severe, with psychosis: Status: Acute (7) Foot osteomyelitis, left: Status: Acute (8) Cellulitis of left foot: Status: Acute Plan left foot osteomyelitis -Has received 2 weeks of IV antibiotics vancomycin, cefepime, through PICC line, discontinued due to issues with PICC line, and compliance, this is back in April -Had biopsy-proven osteomyelitis at that time -Since then he is followed up with wound care, infectious disease -Has been on Bactrim therapy suffered complications including JOSÉ hypokalemia -Has been off antibiotics since the last 2 weeks -Received debridement through wound care -He tells me he had a biopsy which showed osteomyelitis recently -He was told to come to wound care as his wound cultures were positive for MRSA -He does have pain in lower extremity -CT left lower extremity 1. Irregular amputation margins through the 4th and 5th metatarsals.? This would raise the possibility of osteomyelitis which could be better assessed on MRI.? 2. Lateral foot swelling without abscess. 3. Dorsal foot and ankle edema. 4. 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
[2021-06-17 11:01] LABS: Glucose Point of Care 224 mg/dL (70-110)
[2021-06-17] MEDS: cefepime 2,000 MG in sodium chloride 0.9% (plus) 50 ML 100 MG IV ×2 (11:04→23:30)
[2021-06-17 11:20] VITALS: BP 134/73; PULSE 77; RESP 18; TEMP 36.6; O2SAT 94
[2021-06-17 15:10] VITALS: BP 146/79; PULSE 75; RESP 18; TEMP 36.7; O2SAT 94
[2021-06-17 16:36] LABS: Glucose Point of Care 280 mg/dL (70-110)
[2021-06-17] MEDS: vancomycin 1,500 MG/300 ML PIGGYBACK 200 MG IV (17:39)
[2021-06-17 20:00] VITALS: BP 150/76; PULSE 77; RESP 18; TEMP 36.8; O2SAT 97
[2021-06-17 20:48] LABS: Glucose Point of Care 195 mg/dL (70-110)
[2021-06-17] MEDS: fenofibrate 145 mg Tablet PO (21:59)
[2021-06-17] MEDS: trazodone 50 mg Tablet PO (21:59)
[2021-06-17] MEDS: atorvastatin 40 mg Tablet PO (21:59)
[2021-06-17] MEDS: enoxaparin 40 mg/0.4 mL Syringe SUBCUT (23:30)
[2021-06-17 23:41] VITALS: BP 155/81; PULSE 82; RESP 17; TEMP 36.7; O2SAT 98
[2021-06-18 03:06] LABS: Basophils # 0.2 10^3/uL (0.0-0.1); Basophils % 1.1 %; Eosinophils # 1.2 10^3/uL (0.0-0.8); Hematocrit 32.8 % (42.0-52.0); Hemoglobin 10.4 g/dL (11.7-16.6); Lymphocytes # 2.7 10^3/uL (0.8-4.8); Lymphocytes % 15.8 %; Mean Corpuscular HGB Conc 31.7 g/dL (30.0-36.0); Mean Corpuscular Hemoglobin 28.8 pg (28.0-34.0); Mean Corpuscular Volume 90.9 fl (80-94); Mean Platelet Volume 10.1 fL (7.4-10.4); Monocytes # 1.6 10^3/uL (0.2-0.9); Monocytes % 9.3 %; Neutrophils # 11.12 10^3/uL (1.8-7.7); Nucleated Red Blood Cells % 0 %; Platelet Count 385 10^3/cmm (130-400); Red Blood Count 3.61 10^6/uL (4.1-5.3); Red Cell Distribution Width 13.5 % (12.1-15.1); White Blood Count 16.8 10^3/uL (4.0-10.0)
[2021-06-18 03:33] LABS: Alanine Aminotransferase 11 U/L (0-41); Albumin Level 3.2 g/dL (3.5-5.2); Alkaline Phosphatase 52 IU/L (40-130); Anion Gap 14.7 (5-19); Aspartate Amino Transferase 14 U/L (0-40); Blood Urea Nitrogen 25 mg/dL (8-23); Calcium 9.4 mg/dL (8.5-10.5); Carbon Dioxide 23 mmol/L (22-29); Chloride 103 mmol/L (98-107); Globulin 4.5 g/dL (1.3-4.6); Glomerular Filtration Rate 68.1 mL/min (90-130); Glucose 275 mg/dL (65-115); Magnesium 1.4 mg/dL (1.7-2.3); Osmolality Calculated 296 mOsm/kg (285-295); Potassium 4.7 mmol/L (3.5-5.1); Sodium 136 mmol/L (136-145); Total Bilirubin 0.2 mg/dL (0.15-1.2); Total Protein 7.7 g/dL (6.6-8.7)
[2021-06-18 04:00] VITALS: BP 125/69; PULSE 70; RESP 16; TEMP 36.8; O2SAT 98
[2021-06-18] MEDS: aspirin 325 mg Tablet PO (05:19)
[2021-06-18] MEDS: cholecalciferol (vitamin D3) 1,000 unit Tablet 1000 UNIT PO (05:19)
[2021-06-18 06:37] LABS: Glucose Point of Care 275 mg/dL (70-110)
[2021-06-18 07:07] VITALS: BP 153/79; PULSE 83; RESP 18; TEMP 36.8; O2SAT 95
[2021-06-18] MEDS: duloxetine 60 mg Capsule PO ×2 (08:56→16:57)
[2021-06-18] MEDS: pantoprazole DR 40 mg Tablet PO (08:56)
[2021-06-18] MEDS: gabapentin 400 mg Capsule PO ×2 (08:56→16:57)
[2021-06-18] MEDS: metoprolol tartrate 25 mg Tablet PO ×2 (08:58→16:57)
[2021-06-18] MEDS: insulin lispro 100 unit/1 mL SUBCUT ×3 (08:59→17:02)
--- NOTE | 2021-06-18 10:00 | MR_ITS ---
WS: [id number] MRI LEFT foot without gadolinium enhancement. INDICATION: Osteomyelitis TECHNIQUE: Sagittal PD, axial T1, axial STIR, axial PD, axial T2, sagittal T1, sagittal STIR, coronal PD, coronal T2 fat sat FINDINGS: Chronic prior amputations of the 2nd 3rd MTP joints with more recent appearing surgical amp utation of the 4th and 5th metatarsals. Amputation 4th metatarsal midshaft and 5th metatarsal base. D iffuse soft tissue edema overlying the midfoot and lateral foot. Edema involving the lower leg and do rsal foot soft tissues. No evidence of focal drainable abscess or fluid collection. T2 hyperintensity with loss of the normal fatty bone marrow signal involving the shaft of the 4th met atarsal which partially involves the metatarsal base. Additional loss of the normal fatty bone marrow signal throughout the remaining 5th metatarsal base. Findings compatible with osteomyelitis. Normal fatty bone marrow signal involving the 1st 2nd and 3rd metatarsals. Normal talus. Normal medial and l ateral malleolus. Normal ankle mortise. Distal Achilles appears normal. MR/MR foot LT wo con* [id number] IMPRESSION: 1. Loss of the normal fatty T1 bone marrow signal with edema involving the 4th metatarsal shaft and partially involving the 4th metatarsal base. In addition, complete loss of the normal fatty bone marrow signal involving the 5th metatar elizabeth base and residual 5th metatarsal. Findings are compatible with osteomyeliti s in these locations. 2. Diffuse soft tissue edema lower leg and midfoot worse about the lateral luana t soft tissues. No drainable abscess or fluid collection.
--- NOTE | 2021-06-18 10:08 | PC.CHAP ---
Pastoral Care Encounter/Spiritual Assessment Type of Contact [] Declined senior benefits analyst visit [] Patient/Family/Request visit [] Outpatient visit [] Follow-up visit [] Physician referral [] Code/Alert [] Routine visit [] Staff referral [] Actively dying [] Patient sleeping [] Family support [] [] Out of room [] Palliative care [] [] Receiving care in room [] Pre-surgical visit [] Trauma [] Long length of stay [] ICU visit [] Other: Relational/Emotional Strength [] Patient feels connected with others/family/visitors/staff [] Distress [] Loneliness/isolation [] Abandonment Spirituality of Patient [] Person of [place] [] Attends Jew of their [place] [] Believes in Prayer [] Reads Bible or Orthodox materials [] There are Spiritual issues to be addressed [employer] Interventions [] Prayer [] Active listening [] Non-anxious presence [] Spiritual/emotional support [] Crisis/trauma care [] Spiritual counseling [] Bereavement support [] Provided bereavement packet [] Provided Bible/devotional materials [] Provided toy/stuffed animal, coloring book to patient or family member [] Provided Communion [] Anointing/[place] [] Salvation [] Completed spiritual assessment [] Other: Impact on Illness or Injury [] Angry [] Fearful [] Anxious [] Often cries [] Exhaustion [] Unable to work [] Unable to attend mu-ism [] Unable to walk/stand [] Unable to read [] Unable to drive [] Unable to eat/drink [] Unable to sleep [] Unable to be with family [] Patient intubated [] Other: Summary patient feelinh better Time spent with patient 10 min
--- NOTE | 2021-06-18 10:45 | P.PN_ITS ---
Subjective Subjective: Patient was seen this morning, sitting up the side of the bed, has no complaints this morning, Vitals/I&O/Wt Last Vital Signs Temp 98.2 F 06/18/21 07:07 Pulse 83 06/18/21 07:07 Resp 18 06/18/21 07:07 BP 153/79 06/18/21 07:07 Pulse Ox 95 06/18/21 07:07 06/17/21 06/18/21 06/18/21 22:59 06:59 14:59 Intake Total 780 / 2270 50 / 2320 Output Total 600 / 1550 450 / 2000 Balance 180 / 720 -400 / 320 Physical Exam Const: COMMON NORMALS: no acute distress and patient oriented x3 Resp: COMMON NORMALS: normal respiratory effort, No retractions, No use of accessory muscles and clear to auscultation bilaterally AUSCULTATION: clear to auscultation bilaterally Cardio: COMMON NORMALS: regular rate, regular rhythm, S1 normal heart sound present and S2 normal heart sound present RATE: regular rate RHYTHM: regular rhythm HEART SOUNDS: S1 normal heart sound present and S2 normal heart sound present GI: COMMON NORMALS: Normal to inspection, nondistended, normoactive bowel sounds present, Soft to palpation, non-tender, No hepatosplenomegaly present and no masses PALPATION: Yes Soft to palpation and Yes No hepatosplenomegaly present Extremity: COMMON NORMALS: no pedal edema Neuro: COMMON NORMALS: patient oriented x3 Psych: COMMON NORMALS: mental status grossly normal Data : 06/18/21 02:55 06/18/21 02:55 A&P Assessment and plan (1) Open wound: Status: Acute (2) Uncontrolled type 2 diabetes mellitus, with long-term current use of insulin: Status: Acute (3) Infected wound: Status: Acute (4) Diabetic neuropathy: Status: Acute Qualifiers: Diabetes mellitus type: type 2 Diabetes mellitus complication detail: diabetic polyneuropathy Qualified Code(s): E11.42 - Type 2 diabetes mellitus with diabetic polyneuropathy (5) Diabetic foot ulcer: Status: Acute (6) Major depressive disorder, recurrent episode, severe, with psychosis: Status: Acute (7) Foot osteomyelitis, left: Status: Acute (8) Cellulitis of left foot: Status: Acute Plan left foot osteomyelitis -Has received 2 weeks of IV antibiotics vancomycin, cefepime, through PICC line, discontinued due to issues with PICC line, and compliance, this is back in April -Had biopsy-proven osteomyelitis at that time -Since then he is followed up with wound care, infectious disease -Has been on Bactrim therapy suffered complications including JOSÉ hypokalemia -Has been off antibiotics since the last 2 weeks -Received debridement through wound care -He tells me he had a biopsy which showed osteomyelitis recently -He was told to come to wound care as his wound cultures were positive for MRSA -He does have pain in lower extremity -CT left lower extremity 1. Irregular amputation margins through the 4th and 5th metatarsals.? This would raise the possibility of osteomyelitis which could be better assessed on MRI.? 2. Lateral foot swelling without abscess. 3. Dorsal foot and ankle edema. 4. 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, thus IV home antibiotics is not a real option for him, the only real option for him if he required IV antibiotics was to come through outpatient environment or mcc placement -PT OT -Full code -Lovenox for DVT prophylaxis Type 2 diabetes mellitus, Levemir, 15 units twice daily, with moderate dose sliding scale Attestations Medical Necessity Statement*: Patient requires hospitalization for left foot cellulitis, osteomyelitis, requiring MRI, IV antibiotics Coding Level of Care Code Acute 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
[2021-06-18 11:59] LABS: Glucose Point of Care 192 mg/dL (70-110)
[2021-06-18 12:00] VITALS: BP 141/83; PULSE 75; RESP 16; TEMP 36.5; O2SAT 96
[2021-06-18] MEDS: vancomycin 1,500 MG/300 ML PIGGYBACK 200 MG IV (12:22)
[2021-06-18] MEDS: cefepime 2,000 MG in sodium chloride 0.9% (plus) 50 ML 100 MG IV ×2 (12:22→22:11)
[2021-06-18 15:03] VITALS: BP 169/81; PULSE 71; RESP 16; TEMP 36.6; O2SAT 94
[2021-06-18 16:34] LABS: Glucose Point of Care 223 mg/dL (70-110)
[2021-06-18 19:57] VITALS: BP 143/72; PULSE 82; RESP 17; TEMP 36.5; O2SAT 97
[2021-06-18 20:24] LABS: Glucose Point of Care 321 mg/dL (70-110)
[2021-06-18] MEDS: atorvastatin 40 mg Tablet PO (20:33)
[2021-06-18] MEDS: fenofibrate 145 mg Tablet PO (20:33)
[2021-06-18] MEDS: trazodone 50 mg Tablet PO (20:33)
[2021-06-18] MEDS: enoxaparin 40 mg/0.4 mL Syringe SUBCUT (22:11)
[2021-06-18 23:55] VITALS: BP 136/76; PULSE 85; RESP 17; TEMP 36.9; O2SAT 95
[2021-06-19] VITALS (7 sets, daily range): BP systolic 124–144; BP diastolic 68–74; PULSE 73–78; RESP 16–18; TEMP 36.4–36.9; O2SAT 93–96
[2021-06-19 05:23] LABS: Basophils # 0.1 10^3/uL (0.0-0.1); Eosinophils # 1.2 10^3/uL (0.0-0.8); Eosinophils % 9.2 %; Hematocrit 32.4 % (42.0-52.0); Hemoglobin 10.3 g/dL (11.7-16.6); Lymphocytes # 2.3 10^3/uL (0.8-4.8); Lymphocytes % 17.3 %; Mean Corpuscular HGB Conc 31.8 g/dL (30.0-36.0); Mean Corpuscular Hemoglobin 29.2 pg (28.0-34.0); Mean Corpuscular Volume 91.8 fl (80-94); Mean Platelet Volume 10.4 fL (7.4-10.4); Monocytes # 1.3 10^3/uL (0.2-0.9); Monocytes % 9.7 %; Neutrophils # 8.22 10^3/uL (1.8-7.7); Neutrophils % 61.8 %; Nucleated Red Blood Cells % 0 %; Platelet Count 385 10^3/cmm (130-400); Red Blood Count 3.53 10^6/uL (4.1-5.3); Red Cell Distribution Width 13.6 % (12.1-15.1); White Blood Count 13.3 10^3/uL (4.0-10.0)
[2021-06-19] MEDS: aspirin 325 mg Tablet PO (05:33)
[2021-06-19] MEDS: cholecalciferol (vitamin D3) 1,000 unit Tablet 1000 UNIT PO (05:33)
[2021-06-19] MEDS: vancomycin 1,500 MG/300 ML PIGGYBACK 200 MG IV (05:33)
[2021-06-19 05:45] LABS: Alanine Aminotransferase 11 U/L (0-41); Alkaline Phosphatase 54 IU/L (40-130); Anion Gap 15.1 (5-19); Aspartate Amino Transferase 14 U/L (0-40); Blood Urea Nitrogen 28 mg/dL (8-23); Calcium 9.5 mg/dL (8.5-10.5); Carbon Dioxide 24 mmol/L (22-29); Chloride 103 mmol/L (98-107); Globulin 4.5 g/dL (1.3-4.6); Glomerular Filtration Rate 68.1 mL/min (90-130); Glucose 307 mg/dL (65-115); Magnesium 1.6 mg/dL (1.7-2.3); Osmolality Calculated 301 mOsm/kg (285-295); Potassium 5.1 mmol/L (3.5-5.1); Sodium 137 mmol/L (136-145); Total Bilirubin 0.2 mg/dL (0.15-1.2); Total Protein 7.5 g/dL (6.6-8.7)
--- NOTE | 2021-06-19 05:45 | PC.NURSE ---
0530 Resting in bed. Easily awakens. No requests.
[2021-06-19 06:37] LABS: Glucose Point of Care 241 mg/dL (70-110)
[2021-06-19] MEDS: duloxetine 60 mg Capsule PO (07:47)
[2021-06-19] MEDS: gabapentin 400 mg Capsule PO (07:47)
[2021-06-19] MEDS: metoprolol tartrate 25 mg Tablet PO (07:47)
[2021-06-19] MEDS: insulin lispro 100 unit/1 mL SUBCUT ×2 (07:47→12:28)
[2021-06-19] MEDS: pantoprazole DR 40 mg Tablet PO (07:48)
[2021-06-19 12:27] LABS: Glucose Point of Care 237 mg/dL (70-110)
[2021-06-19] MEDS: cefepime 2,000 MG in sodium chloride 0.9% (plus) 50 ML 100 MG IV (12:28)
[2021-06-19] MEDS: morphine 4 mg/mL SDV 1 mL 1 MG IVP (12:28)
--- NOTE | 2021-06-19 14:28 | P.DS_ITS ---
Discharge Providers Date of Admission: 06/14/21 18:13 Date of Discharge: June 19, 2021 Attending Provider at Admission: Dash Martini MD Attending Provider at Discharge: Dash Martini MD Primary Care Provider: Juany Guajardo DO Diagnoses at Discharge Discharge Diagnosis (1) Open wound: Status: Acute (2) Uncontrolled type 2 diabetes mellitus, with long-term current use of insulin: Status: Acute (3) Infected wound: Status: Acute (4) Diabetic neuropathy: Status: Acute Qualifiers: Diabetes mellitus type: type 2 Diabetes mellitus complication detail: diabetic polyneuropathy Qualified Code(s): E11.42 - Type 2 diabetes mellitus with diabetic polyneuropathy (5) Diabetic foot ulcer: Status: Acute (6) Major depressive disorder, recurrent episode, severe, with psychosis: Status: Acute (7) Foot osteomyelitis, left: Status: Acute (8) Cellulitis of left foot: Status: Acute Reason for Visit Reason for Visit: Patient states Mersa in rt foot, open wound Hospital Course Hospital Course Marquis Ballard is a 60 year old male with a past medical history of type 2 diabetes mellitus, history of chronic left foot diabetic ulcer, with her history of osteomyelitis in the left foot, biopsy-proven, patient completed 3 or so w eeks of IV antibiotics vancomycin and cefepime, issues with PICC line, issues with compliance, recently on Bactrim, but suffered complications with Bactrim therapy including hyperkalemia and JOSÉ, off antibiotics for least 2 weeks, has recurrent debridements of left foot, big toe in place, has 1/5 metatarsal amputation, fourth metatarsal stump, area of open wound, recently had debrided 06/11/2021, presents [facility] due to concerns for osteomyelitis in his foot, and concern for MRSA infection.? Patient was admitted to [facility] for left toe osteomyelitis, culture so far showed MSSA, Proteus, foot MRI: 1.? Loss of the normal fatty T1 bone marrow signal with edema involving the 4th metatarsal shaft and partially involving the 4th metatarsal base. In addition, complete loss of the normal fatty bone marrow signal involving the 5th metatarsal base and residual 5th metatarsal. Findings are compatible with osteomyelitis in these locations. 2.? Diffuse soft tissue edema lower leg and midfoot worse about the lateral foot soft tissues. No drainable abscess or fluid collection. -Patient had inpatient wound VAC put in place, however it came off according to patient, managed then with wet-to-dry dressing -Will discharge on wet-to-dry dressing, follow-up with wound care -Managed with vancomycin, cefepime as inpatient for IV antibiotics, blood culture so far unremarkable -Due to his history of noncompliance, unfortunately home health care was not an option for him -After discussing with patient, the only option was outpatient IV antibiotics once daily versus assisted placement for IV antibiotics -However for assisted placement, patient takes care of his who has multiple sclerosis, he wanted his to be with him during his assisted s madelin, which unfortunately was a difficult task, could not be carried out -The only viable option was IV antibiotics, through outpatient pharmacy, once daily -Thus vancomycin and cefepime which are usually twice daily, were not a reasonable option -Patient has been set up for IV antibiotics as outpatient daptomycin, ertapenem -Daptomycin 750 mg every 24 hours for 51 remaining days -Ertapenem 1 g every 24 hours for 51 remaining days -Weekly CBC CMP -Follow-up with wound care in 1 week -Follow-up with primary care provider with weekly CBCs and CMP's, through GI Lab, monitoring kidney function, liver function -For his blood sugars, discharged on a NovoLog sliding scale, his [facility] -Advised to monitor blood sugars closely, better titration of blood sugars Physical Exam Const: COMMON NORMALS: no acute distress and patient oriented x3 Neck/C-Spine: COMMON NORMALS: no JVD Resp: COMMON NORMALS: normal respiratory effort, No retractions, No use of accessory muscles and clear to auscultation bilaterally AUSCULTATION: clear to auscultation bilaterally Cardio: COMMON NORMALS: no JVD, regular rate, regular rhythm, S1 normal heart sound present and S2 normal heart sound present RATE: regular rate RHYTHM: regular rhythm HEART SOUNDS: S1 normal heart sound present and S2 normal heart sound present GI: COMMON NORMALS: Normal to inspection, nondistended, normoactive bowel sounds present, Soft to palpation, non-tender and No hepatosplenomegaly present PALPATION: Yes Soft to palpation and Yes No hepatosplenomegaly present Extremity: COMMON NORMALS: no pedal edema Neuro: COMMON NORMALS: patient oriented x3 Psych: COMMON NORMALS: mental status grossly normal Discharge Data Studies Completed and Pending Completed Studies During Hospitalization Category Date Time Status CT foot LT w con [id number] Urgent Cat Scan 06/14/21 22:22 Completed XR foot LT 2V [id number] Urgent Exams 06/14/21 17:02 Completed MR foot LT wo con* [id number] Routine MRI 06/18/21 10:00 Completed Pending at discharge Category Date Time Status Blood Culture Stat Lab 06/14/21 17:12 Results Complete Blood Count w/Auto AM LABS Lab 06/20/21 04:00 Ordered Comprehensive Metabolic Panel AM LABS Lab 06/20/21 04:00 Ordered Magnesium AM LABS Lab 06/20/21 04:00 Ordered Vancomycin Trough Timed Lab 06/19/21 23:00 Ordered Radiology Impressions Foot X-Ray 06/14/21 17:02 IMPRESSION: 1. The patient has had an interval resection of the 5th toe beyond the proximal metaphysis of the 5th metatarsal and additional resection of the 4th metatarsal to the mid-diaphysis. Interval development of periosteal reaction and sclerosis at the residual 5th metatarsal stump and periosteal reaction adjacent to the 4th metatarsal stump. Findings are concerning for osteomyelitis. Recommend clinical correlation. MRI without and with contrast may be obtained for further evaluation if it will change clinical management. If the patient has any contradiction for MRI, 3 phase bone scan in conjunction with white blood cell scan may be obtained. 2. Stable postsurgical changes consistent with resection of the 2nd and 3rd toes beyond the heads of the 2nd and 3rd metatarsals and of the 4th toe beyond mid diaphysis of the 4th metatarsal. 3. Moderate soft tissue swelling distal to the 3rd, 4th, and 5th metatarsal stumps concerning for cellulitis. No soft tissue emphysema. 4. Incidental/nonacute findings are listed in the report. Foot CT 06/14/21 22:22 IMPRESSION: 1. Irregular amputation margins through the 4th and 5th metatarsals. This would raise the possibility of osteomyelitis which could be better assessed on MRI. 2. Lateral foot swelling without abscess. 3. Dorsal foot and ankle edema. 4. Chronic amputations Foot MRI 06/18/21 10:00 IMPRESSION: 1. Loss of the normal fatty T1 bone marrow signal with edema involving the 4th metatarsal shaft and partially involving the 4th metatarsal base. In addition, complete loss of the normal fatty bone marrow signal involving the 5th metatarsal base and residual 5th metatarsal. Findings are compatible with osteomyelitis in these locations. 2. Diffuse soft tissue edema lower leg and midfoot worse about the lateral foot soft tissues. No drainable abscess or fluid collection. Laboratory Results WBC 13.3 10^3/uL (4.0-10.0) H 06/19/21 04:53 RBC 3.53 10^6/uL (4.1-5.3) L 06/19/21 04:53 Hgb 10.3 g/dL (11.7-16.6) L 06/19/21 04:53 Hct 32.4 % (42.0-52.0) L 06/19/21 04:53 MCV 91.8 fl (80-94) 06/19/21 04:53 MCH 29.2 pg (28.0-34.0) 06/19/21 04:53 MCHC 31.8 g/dL (30.0-36.0) 06/19/21 04:53 RDW 13.6 % (12.1-15.1) 06/19/21 04:53 Plt Count 385 10^3/cmm (130-400) 06/19/21 04:53 MPV 10.4 fL (7.4-10.4) 06/19/21 04:53 Neut % (Auto) 61.8 % 06/19/21 04:53 Lymph % (Auto) 17.3 % 06/19/21 04:53 [place] % (Auto) 9.7 % 06/19/21 04:53 Eos % (Auto) 9.2 % 06/19/21 04:53 Baso % (Auto) 1.0 % 06/19/21 04:53 Neut # (Auto) 8.22 10^3/uL (1.8-7.7) H 06/19/21 04:53 Lymph # (Auto) 2.3 10^3/uL (0.8-4.8) 06/19/21 04:53 [place] # (Auto) 1.3 10^3/uL (0.2-0.9) H 06/19/21 04:53 Eos # (Auto) 1.2 10^3/uL (0.0-0.8) H 06/19/21 04:53 Baso # (Auto) 0.1 10^3/uL (0.0-0.1) 06/19/21 04:53 Nucleated RBC % (auto) 0 % 06/19/21 04:53 Nucleated RBCs # 0.0 /100WBC 06/19/21 04:53 ESR 77 mm/hr (0-10) H 06/14/21 17:01 PT 15.80 SECONDS (12.1-14.9) H 06/16/21 04:15 INR 1.22 (0.8-1.2) H 06/16/21 04:15 Sodium 137 mmol/L (136-145) 06/19/21 04:53 Potassium 5.1 mmol/L (3.5-5.1) 06/19/21 04:53 Chloride 103 mmol/L (98-107) 06/19/21 04:53 Carbon Dioxide 24 mmol/L (22-29) 06/19/21 04:53 Anion Gap 15.1 (5-19) 06/19/21 04:53 BUN 28 mg/dL (8-23) H 06/19/21 04:53 Creatinine 1.1 mg/dL (0.7-1.2) 06/19/21 04:53 GFR Calculation 68.1 mL/min (90-130) L 06/19/21 04:53 Glucose 307 mg/dL (65-115) H 06/19/21 04:53 POC Glucose 237 mg/dL (70-110) H 06/19/21 11:36 Estimat Average Glucose 189 06/15/21 04:18 Hemoglobin A1c 8.2 % (4.0-6.0) H 06/15/21 04:18 Calculated Osmolality 301 mOsm/kg (285-295) H 06/19/21 04:53 Calcium 9.5 mg/dL (8.5-10.5) 06/19/21 04:53 Phosphorus 3.0 mg/dL (2.5-4.5) 06/17/21 04:16 Magnesium 1.6 mg/dL (1.7-2.3) L 06/19/21 04:53 Total Bilirubin 0.2 mg/dL (0.15-1.2) 06/19/21 04:53 AST 14 U/L (0-40) 06/19/21 04:53 ALT 11 U/L (0-41) 06/19/21 04:53 Alkaline Phosphatase 54 IU/L (40-130) 06/19/21 04:53 C-Reactive Protein 24.8 mg/L (0.0-4.9) H 06/16/21 04:15 Total Protein 7.5 g/dL (6.6-8.7) 06/19/21 04:53 Albumin 3.0 g/dL (3.5-5.2) L 06/19/21 04:53 Globulin 4.5 g/dL (1.3-4.6) 06/19/21 04:53 Triglycerides 119 mg/dL (0-150) 06/15/21 04:18 Cholesterol 100 mg/dL (0-200) 06/15/21 04:18 LDL Cholesterol, Calc 50 mg/dL (50-129) 06/15/21 04:18 HDL Cholesterol 26 mg/dL (60-100) L 06/15/21 04:18 LDL/HDL Ratio 1.92 RATIO (0.00-3.22) 06/15/21 04:18 Cholesterol/HDL Ratio 3.85 mg/dL (1.0-5.00) 06/15/21 04:18 Procalcitonin 0.05 ng/mL (0-0.5) 06/16/21 04:15 Vancomycin Trough 22.4 ug/mL (10-15) H 06/16/21 17:10 Vitals Last Vital Signs Temp 97.5 F L 06/19/21 11:31 Pulse 73 06/19/21 11:31 Resp 18 06/19/21 11:31 BP 139/74 06/19/21 11:31 Pulse Ox 96 06/19/21 11:31 Discharge Plan Discharge Patient Disposition: Home Condition: Stable Prescriptions: New aspirin 325 mg Tablet 325 mg PO QAM 30 Days Qty: 30 0RF ertapenem [Invanz] 1 gram recon soln 1 g IV DAILY 51 Days Qty: 51 0RF trazodone 50 mg Tablet 50 mg PO BEDTIME 30 Days Qty: 30 0RF daptomycin 500 mg recon soln 750 mg IV DAILY 51 Days Qty: 51 0RF Rx Instructions: administer over 30 mins Continued fenofibrate nanocrystallized 145 mg tablet 145 mg PO BEDTIME Qty: 90 1RF Tresiba FlexTouch U-100 100 unit/mL (3 mL) insulin pen See Rx Instructions .ROUTE .COMPLEX Qty: 15 0RF Dose Instruction: INJECT 28 UNITS SUBCUTANEOUSLY DAILY Rx Instructions: INJECT 18 UNITS SUBCUTANEOUSLY BID Please dispense pen needles as well tramadol 50 mg tablet 50 mg PO Q6H PRN (Reason: pain) 7 Days Qty: 28 0RF metoprolol tartrate 25 mg tablet 25 mg PO BID Qty: 180 3RF methocarbamol 500 mg tablet 500 mg PO BID PRN (Reason: pain) Qty: 60 2RF (DME) EdicyTouch Ultra Test Strip See Rx Instructions .Route Qty: 300 3RF Rx Instructions: to use in Amplience ultra meter TID 90 day supply multivitamin Tablet 1 tab PO DAILY 0RF beta carotene 25,000 unit Capsule 25,000 unit PO BID 0RF cholecalciferol (vitamin D3) [Vitamin D3] 25 mcg (1,000 unit) Capsule 25 mcg PO QAM 0RF acetaminophen [Tylenol Extra Strength] 500 mg Tablet 500 mg PO TID PRN (Reason: Pain) Qty: 0 0RF cyanocobalamin (vitamin B-12) [Vitamin B-12] 100 mcg Tablet 100 mcg PO DAILY 0RF coenzyme Q10 [CoQ-10] 100 mg Capsule 100 mg PO DAILY 0RF ascorbic acid (vitamin C) [Vitamin C] 1,000 mg Tablet 1 g PO QAM 0RF atorvastatin 40 mg tablet 40 mg PO BEDTIME 0RF gabapentin 400 mg capsule 400 mg PO TID 0RF metformin 1,000 mg tablet 1,000 mg PO BID 0RF Victoza 3-John 0.6 mg/0.1 mL (18 mg/3 mL) pen injector 1.8 mg SUBCUT QAM 0RF duloxetine 60 mg capsule,delayed release(DR/EC) 60 mg PO BID Qty: 60 2RF Aspir-81 81 mg Tablet,Delayed Release (Dr/Ec) 81 mg PO DAILY 0RF trazodone 50 mg tablet 50 - 100 mg PO PRN PRN (Reason: Sleep) 0RF Changed insulin aspart U-100 [Novolog Flexpen U-100 Insulin] 100 unit/mL (3 mL) insulin pen See Rx Instructions .ROUTE .COMPLEX MDD 40 Qty: 15 0RF Rx Instructions: Inject, subcu, 3 times daily, after meals, based on sliding scale provided Discharge Orders: Discharge Order (Routine); Ordered 06/19/21 Ordered By: Dash Martini Other Ambulatory Orders: Complete Blood Count w/Auto (WEEKLY) Timeframe: 20210626 Location: Determined by Patient Ordered By: Dash Lianet Complete Blood Count w/Auto (WEEKLY) Timeframe: 20210627 Location: Determined by Patient Ordered By: Dash Lianet Complete Blood Count w/Auto (WEEKLY) Timeframe: 20210628 Location: Determined by Patient Ordered By: Dash Lianet Complete Blood Count w/Auto (WEEKLY) Timeframe: 20210629 Location: Determined by Patient Ordered By: Dash Liante Complete Blood Count w/Auto (WEEKLY) Timeframe: 20210630 Location: Determined by Patient Ordered By: Dash Lianet Comprehensive Metabolic Panel (WEEKLY) Timeframe: 20210626 Facility: [facility] - Location: Lab - Main Lab Ordered By: Dash Lianet Comprehensive Metabolic Panel (WEEKLY) Timeframe: 20210627 Facility: [facility] - Location: Lab - Main Lab Ordered By: Dash Lianet Comprehensive Metabolic Panel (WEEKLY) Timeframe: 20210628 Facility: [facility] - Location: Lab - Main Lab Ordered By: Dash Lianet Comprehensive Metabolic Panel (WEEKLY) Timeframe: 20210629 Facility: [facility] - Location: Lab - Main Lab Ordered By: Dash Lianet Comprehensive Metabolic Panel (WEEKLY) Timeframe: 20210630 Facility: [facility] - Location: Lab - Main Lab Ordered By: Dash Martini Referrals: Juany Guajardo DO [Primary Care Provider] - 06/25/21 2:15 pm [facility], [Staff Physician] - 1 week Discharge Diet: Cardiac Discharge Activity: Resume usual activity Patient Instructions: Opioid Safety Activity Restrictions/Additional Instructions: -NovoLog sliding scale, 3 times daily, after meals, based on sliding scale as below -bring blood sugar logs to primary care physician -If blood sugar greater than 500 call primary care -If blood sugar less than 60, drink or juice or eat a hard candy go to emergency room -Insulin sliding fingerstick? Insulin 141-180?2 units/sq 181-220?4 units/sq 221-260?6 units/sq 261-300?8 units/sq 301-350 10 units/sq 351-400 12 units/sq > 400? 14 units/sq -For left foot osteomyelitis, cellulitis, culture showing MSSA, Proteus -Inject ertapenem, 1 g every 24 hours, for 51 remaining days -Daptomycin, 750 mg, every 24 hours, for 51 remaining days -Please inject at GI Lab -Repeat CBC and CMP weekly -Follow-up with primary care provider in 1 week - follow-up with wound care in 1 week - Discharge Attestations Time Spent in Discharge Care*: less than 30 min Status at Discharge: Cognitive status at discharge: cognitively intact , Behavioral status at discharge: cooperative , Quality Metrics Clinical Quality Measures [ No reported AMI, CVA or VTE this stay] Coding Level of Care Code Acute [facility] note Diagnoses Open wound T14.8XXA Uncontrolled type 2 diabetes mellitus, with long-term current use of insulin E11.65; Z79.4 Infected wound T14.8XXA; L08.9 Diabetic neuropathy E11.42 Diabetes mellitus type: type 2 Diabetes mellitus complication detail: diabetic polyneuropathy Diabetic foot ulcer E11.621; L97.509 Major depressive disorder, recurrent episode, severe, with psychosis F33.3 Foot osteomyelitis, left M86.9 Cellulitis of left foot L03.116
--- NOTE | 2021-06-19 14:30 | XR_ITS ---
WS: [id number] Portable AP supine chest, 06/19/2021 Clinical Data: PICC placement Comparison: Portable chest, 04/11/2021. Findings: A right PICC line has been inserted and ends in the inferior vena cava overlying the T11 v ertebra. It needs to be retreated approximately 10 cm. No right pneumothorax is seen. XR/XR chest 1V portable [id number] Impression: Right PICC line ending in inferior vena cava.
== END 2021-06-19 15:45 | disposition home health service (06) | DRG 638 ==
LOC: ER 17:33 → MEDSURG 20:37
PROVIDERS: Admitting Provider Family Medicine; Emergency Provider Emergency Medicine; PCP Family Medicine; Visit Provider Family Medicine
DX: E11.69 Type 2 diabetes mellitus with other specified complication (principal); M86.8X7 Other osteomyelitis, ankle and foot; E11.52 Type 2 diabetes mellitus with diabetic peripheral angiopathy with gangrene; I96 Gangrene, not elsewhere classified; F33.3 Major depressive disorder, recurrent, severe with psychotic symptoms; L03.116 Cellulitis of left lower limb; E11.65 Type 2 diabetes mellitus with hyperglycemia; E11.40 Type 2 diabetes mellitus with diabetic neuropathy, unspecified; B95.61 Methicillin susceptible Staphylococcus aureus infection as the cause of diseases classified elsewhere; B96.4 Proteus (mirabilis) (morganii) as the cause of diseases classified elsewhere; E78.5 Hyperlipidemia, unspecified; I10 Essential (primary) hypertension; M54.50 Low back pain, unspecified; F17.210 Nicotine dependence, cigarettes, uncomplicated; Z89.422 Acquired absence of other left toe(s); Z89.421 Acquired absence of other right toe(s); Z96.642 Presence of left artificial hip joint; T87.81 Dehiscence of amputation stump
CPT/HCPCS: 36415; 36416; 36569; 71045; 73620; 73701; 73718; 80048; 80053; 80061; 80202; 82962; 83036; 83735; 84100; 84145; 85025; 85610; 85651; 86140; 87040; 94664; 96365; 96367; 96372; 99285; J0692; J1650; J1815; J2270; J2543; J3370; J7030; J7050; Q9967

== ENCOUNTER 2021-06-25 13:03 | Outpatient (CLI) | payer MEDICAID, SELFPAY | END 2021-06-25 13:04 | disposition home or self-care (01) | LOC: WOUND 13:04 | PROVIDERS: PCP Family Medicine; Visit Provider Thoracic Surgery (Cardiothoracic Vascular Surgery) | DX: E11.621 Type 2 diabetes mellitus with foot ulcer (principal); I96 Gangrene, not elsewhere classified; L97.523 Non-pressure chronic ulcer of other part of left foot with necrosis of muscle; F17.210 Nicotine dependence, cigarettes, uncomplicated | CPT/HCPCS: 97597 ==

== ENCOUNTER 2021-07-05 07:58 | Outpatient (RCR) | payer MEDICAID, SELFPAY ==
[2021-06-20] MEDS: ertapenem 1,000 MG in sodium chloride 0.9% (plus) 100 ML 200 MG IV (08:45)
[2021-06-20] MEDS: DAPTOMYCIN IV (09:15)
[2021-06-20] MEDS: SODIUM CHLORIDE 0.9% IV (09:15)
[2021-06-20 09:55] VITALS: BP 140/60; PULSE 82; RESP 18; TEMP 36.3; O2SAT 98
--- NOTE | 2021-06-20 10:20 | PC.NURSE ---
Pt to GI lab for IV infusions of daptomycin and ertapenem for osteomyletis. PICC to right upper arm patent. Dressing changed. Antibiotics infused without difficulty. No reaction noted. Pt to have 51 days of IV antibiotic therapy. Weekly CBC and CMP labs to be drawn and sent to PCP Dr. Guajardo during therapy.
[2021-06-21] MEDS: ertapenem 1,000 MG in sodium chloride 0.9% (plus) 100 ML 200 MG IV (08:07)
[2021-06-21 08:14] VITALS: BP 127/65; PULSE 95; RESP 18; TEMP 36.6; O2SAT 95
[2021-06-21] MEDS: DAPTOMYCIN IV (08:30)
[2021-06-21] MEDS: SODIUM CHLORIDE 0.9% IV (08:30)
[2021-06-22] MEDS: ertapenem 1,000 MG in sodium chloride 0.9% (plus) 100 ML 200 MG IV (07:58)
[2021-06-22 08:00] VITALS: BP 148/73; PULSE 106; RESP 18; TEMP 36.2; O2SAT 98
[2021-06-22] MEDS: DAPTOMYCIN IV (08:13)
[2021-06-22] MEDS: SODIUM CHLORIDE 0.9% IV (08:13)
[2021-06-23] MEDS: ertapenem 1,000 MG in sodium chloride 0.9% (plus) 100 ML 200 MG IV (08:05)
[2021-06-23 08:10] VITALS: BP 141/73; PULSE 102; RESP 18; TEMP 36.2; O2SAT 95
[2021-06-23] MEDS: DAPTOMYCIN IV (08:45)
[2021-06-23] MEDS: SODIUM CHLORIDE 0.9% IV (08:45)
[2021-06-24] MEDS: ertapenem 1,000 MG in sodium chloride 0.9% (plus) 100 ML 200 MG IV (08:10)
[2021-06-24 08:14] VITALS: BP 149/77; PULSE 97; RESP 18; TEMP 36.2; O2SAT 98
[2021-06-24] MEDS: DAPTOMYCIN IV (08:36)
[2021-06-24] MEDS: SODIUM CHLORIDE 0.9% IV (08:36)
[2021-06-25 07:55] VITALS: BP 137/70; PULSE 78; RESP 18; TEMP 36.2; O2SAT 96
[2021-06-25] MEDS: ertapenem 1,000 MG in sodium chloride 0.9% (plus) 100 ML 200 MG IV (07:55)
[2021-06-25 08:04] LABS: Basophils # 0.1 10^3/uL (0.0-0.1); Basophils % 0.6 %; Eosinophils # 0.7 10^3/uL (0.0-0.8); Eosinophils % 6.4 %; Hematocrit 34.1 % (42.0-52.0); Lymphocytes # 2.1 10^3/uL (0.8-4.8); Lymphocytes % 19.6 %; Mean Corpuscular HGB Conc 32.3 g/dL (30.0-36.0); Mean Corpuscular Volume 92.9 fl (80-94); Mean Platelet Volume 10.3 fL (7.4-10.4); Monocytes # 1.2 10^3/uL (0.2-0.9); Monocytes % 11.5 %; Neutrophils # 6.64 10^3/uL (1.8-7.7); Neutrophils % 61.4 %; Nucleated Red Blood Cells % 0 %; Platelet Count 383 10^3/cmm (130-400); Red Blood Count 3.67 10^6/uL (4.1-5.3); Red Cell Distribution Width 14.1 % (12.1-15.1); White Blood Count 10.8 10^3/uL (4.0-10.0)
[2021-06-25] MEDS: DAPTOMYCIN IV (08:13)
[2021-06-25] MEDS: SODIUM CHLORIDE 0.9% IV (08:13)
[2021-06-25 08:22] LABS: Alanine Aminotransferase 11 U/L (0-41); Albumin Level 3.7 g/dL (3.5-5.2); Alkaline Phosphatase 64 IU/L (40-130); Anion Gap 15.9 (5-19); Aspartate Amino Transferase 16 U/L (0-40); Blood Urea Nitrogen 18 mg/dL (8-23); Calcium 9.8 mg/dL (8.5-10.5); Carbon Dioxide 24 mmol/L (22-29); Chloride 104 mmol/L (98-107); Globulin 4.5 g/dL (1.3-4.6); Glucose 139 mg/dL (65-115); Osmolality Calculated 292 mOsm/kg (285-295); Potassium 4.9 mmol/L (3.5-5.1); Sodium 139 mmol/L (136-145); Total Bilirubin 0.2 mg/dL (0.15-1.2); Total Protein 8.2 g/dL (6.6-8.7)
[2021-06-26] MEDS: ertapenem 1,000 MG in sodium chloride 0.9% (plus) 100 ML 200 MG IV (08:06)
[2021-06-26 08:12] VITALS: BP 132/65; PULSE 85; RESP 18; TEMP 36.2; O2SAT 99
[2021-06-26] MEDS: DAPTOMYCIN IV (08:45)
[2021-06-26] MEDS: SODIUM CHLORIDE 0.9% IV (08:45)
[2021-06-27] MEDS: ertapenem 1,000 MG in sodium chloride 0.9% (plus) 100 ML 200 MG IV (08:10)
[2021-06-27 08:13] VITALS: BP 135/71; PULSE 83; RESP 18; TEMP 36.4; O2SAT 95
[2021-06-27] MEDS: SODIUM CHLORIDE 0.9% IV (08:27)
[2021-06-27] MEDS: DAPTOMYCIN IV (08:27)
[2021-06-28 08:17] VITALS: BP 148/69; PULSE 79; RESP 18; TEMP 36.4; O2SAT 98
[2021-06-28] MEDS: ertapenem 1,000 MG in sodium chloride 0.9% (plus) 100 ML 200 MG IV (08:17)
[2021-06-28] MEDS: SODIUM CHLORIDE 0.9% IV (09:00)
[2021-06-28] MEDS: DAPTOMYCIN IV (09:00)
[2021-06-29] MEDS: ertapenem 1,000 MG in sodium chloride 0.9% (plus) 100 ML 200 MG IV (08:07)
[2021-06-29] MEDS: DAPTOMYCIN IV (08:08)
[2021-06-29] MEDS: SODIUM CHLORIDE 0.9% IV (08:08)
[2021-06-29 08:11] VITALS: BP 122/64; PULSE 88; RESP 18; TEMP 36.5; O2SAT 99
[2021-06-30 08:43] VITALS: BP 137/68; PULSE 85; RESP 16; TEMP 36.6; O2SAT 95
[2021-06-30] MEDS: ertapenem 1,000 MG in sodium chloride 0.9% (plus) 100 ML 200 MG IV (09:19)
[2021-06-30] MEDS: DAPTOMYCIN IV (09:53)
[2021-06-30] MEDS: SODIUM CHLORIDE 0.9% IV (09:53)
[2021-07-01 08:02] VITALS: BP 142/69; PULSE 90; RESP 16; TEMP 36.2; O2SAT 97
[2021-07-01] MEDS: ertapenem 1,000 MG in sodium chloride 0.9% (plus) 100 ML 200 MG IV (08:04)
[2021-07-01] MEDS: SODIUM CHLORIDE 0.9% IV (08:34)
[2021-07-01] MEDS: DAPTOMYCIN IV (08:34)
[2021-07-02] MEDS: ertapenem 1,000 MG in sodium chloride 0.9% (plus) 100 ML 200 MG IV (08:06)
[2021-07-02 08:17] LABS: Basophils # 0.1 10^3/uL (0.0-0.1); Basophils % 0.8 %; Eosinophils # 0.7 10^3/uL (0.0-0.8); Hematocrit 34.6 % (42.0-52.0); Lymphocytes # 2.4 10^3/uL (0.8-4.8); Lymphocytes % 22.6 %; Mean Corpuscular HGB Conc 31.8 g/dL (30.0-36.0); Mean Corpuscular Hemoglobin 29.2 pg (28.0-34.0); Mean Corpuscular Volume 91.8 fl (80-94); Monocytes % 9.3 %; Neutrophils # 6.29 10^3/uL (1.8-7.7); Neutrophils % 59.6 %; Nucleated Red Blood Cells % 0 %; Platelet Count 406 10^3/cmm (130-400); Red Blood Count 3.77 10^6/uL (4.1-5.3); Red Cell Distribution Width 14.3 % (12.1-15.1); White Blood Count 10.5 10^3/uL (4.0-10.0)
[2021-07-02 08:26] VITALS: BP 130/68; PULSE 78; RESP 18; TEMP 36.6; O2SAT 99
[2021-07-02] MEDS: SODIUM CHLORIDE 0.9% IV (08:35)
[2021-07-02] MEDS: DAPTOMYCIN IV (08:35)
[2021-07-02 08:44] LABS: Alanine Aminotransferase 14 U/L (0-41); Albumin Level 3.6 g/dL (3.5-5.2); Alkaline Phosphatase 61 IU/L (40-130); Anion Gap 16.9 (5-19); Aspartate Amino Transferase 18 U/L (0-40); Blood Urea Nitrogen 16 mg/dL (8-23); Calcium 9.7 mg/dL (8.5-10.5); Carbon Dioxide 23 mmol/L (22-29); Chloride 101 mmol/L (98-107); Globulin 3.8 g/dL (1.3-4.6); Glomerular Filtration Rate 61.6 mL/min (90-130); Glucose 195 mg/dL (65-115); Osmolality Calculated 289 mOsm/kg (285-295); Potassium 4.9 mmol/L (3.5-5.1); Sodium 136 mmol/L (136-145); Total Bilirubin 0.2 mg/dL (0.15-1.2); Total Protein 7.4 g/dL (6.6-8.7)
[2021-07-03] MEDS: ertapenem 1,000 MG in sodium chloride 0.9% (plus) 100 ML 200 MG IV (08:08)
[2021-07-03 08:13] VITALS: BP 141/71; PULSE 73; RESP 18; TEMP 36.3; O2SAT 99
[2021-07-03] MEDS: DAPTOMYCIN IV (08:53)
[2021-07-03] MEDS: SODIUM CHLORIDE 0.9% IV (08:53)
[2021-07-04] MEDS: ertapenem 1,000 MG in sodium chloride 0.9% (plus) 100 ML 200 MG IV (08:02)
[2021-07-04 08:14] VITALS: BP 124/64; PULSE 88; RESP 18; TEMP 36.5; O2SAT 98
[2021-07-04] MEDS: DAPTOMYCIN IV (08:40)
[2021-07-04] MEDS: SODIUM CHLORIDE 0.9% IV (08:40)
[2021-07-05] MEDS: ertapenem 1,000 MG in sodium chloride 0.9% (plus) 100 ML 200 MG IV (08:06)
[2021-07-05 08:14] VITALS: BP 120/62; PULSE 77; RESP 18; TEMP 36.3; O2SAT 94
[2021-07-05] MEDS: DAPTOMYCIN IV (08:36)
[2021-07-05] MEDS: SODIUM CHLORIDE 0.9% IV (08:36)
== END 2021-07-05 23:59 | disposition home or self-care (01) ==
LOC: GILAB 07:58
PROVIDERS: PCP Family Medicine; Visit Provider Family Medicine
DX: M86.8X7 Other osteomyelitis, ankle and foot (principal); L03.116 Cellulitis of left lower limb; E11.621 Type 2 diabetes mellitus with foot ulcer; I96 Gangrene, not elsewhere classified; L97.523 Non-pressure chronic ulcer of other part of left foot with necrosis of muscle; F17.210 Nicotine dependence, cigarettes, uncomplicated
CPT/HCPCS: 11042; 36592; 80053; 85025; 96365; 96367; 99213; J0878; J1335

== ENCOUNTER 2021-08-04 08:00 | Outpatient (RCR) | payer MEDICAID, SELFPAY ==
[2021-07-06 08:05] VITALS: BP 148/79; PULSE 106; RESP 18; TEMP 36.3; O2SAT 97
[2021-07-06] MEDS: ertapenem 1,000 MG in sodium chloride 0.9% (plus) 100 ML 200 MG IV (08:12)
[2021-07-06] MEDS: SODIUM CHLORIDE 0.9% IV (08:34)
[2021-07-06] MEDS: DAPTOMYCIN IV (08:34)
[2021-07-07 08:08] VITALS: BP 116/88; PULSE 88; RESP 16; TEMP 36.6; O2SAT 98
[2021-07-07] MEDS: ertapenem 1,000 MG in sodium chloride 0.9% (plus) 100 ML 200 MG IV (08:20)
[2021-07-07 08:24] VITALS: BMI 29.5
[2021-07-07] MEDS: SODIUM CHLORIDE 0.9% IV (09:26)
[2021-07-07] MEDS: DAPTOMYCIN IV (09:26)
[2021-07-08 07:56] VITALS: BP 146/77; PULSE 98; RESP 18; TEMP 37.7; O2SAT 95
[2021-07-08] MEDS: ertapenem 1,000 MG in sodium chloride 0.9% (plus) 100 ML 200 MG IV (08:07)
[2021-07-08] MEDS: DAPTOMYCIN IV (08:54)
[2021-07-08] MEDS: SODIUM CHLORIDE 0.9% IV (08:54)
[2021-07-09] MEDS: ertapenem 1,000 MG in sodium chloride 0.9% (plus) 100 ML 200 MG IV (08:09)
[2021-07-09 08:13] VITALS: BP 137/67; PULSE 88; RESP 18; TEMP 36.1; O2SAT 98
[2021-07-09 08:27] LABS: Basophils # 0.1 10^3/uL (0.0-0.1); Basophils % 0.6 %; Eosinophils # 1.3 10^3/uL (0.0-0.8); Eosinophils % 7.4 %; Hematocrit 35.6 % (42.0-52.0); Hemoglobin 11.3 g/dL (11.7-16.6); Lymphocytes # 1.7 10^3/uL (0.8-4.8); Lymphocytes % 9.3 %; Mean Corpuscular HGB Conc 31.7 g/dL (30.0-36.0); Mean Corpuscular Hemoglobin 29.4 pg (28.0-34.0); Mean Corpuscular Volume 92.5 fl (80-94); Mean Platelet Volume 10.1 fL (7.4-10.4); Monocytes # 2.2 10^3/uL (0.2-0.9); Monocytes % 12.3 %; Nucleated Red Blood Cells % 0 %; Platelet Count 343 10^3/cmm (130-400); Red Blood Count 3.85 10^6/uL (4.1-5.3); Red Cell Distribution Width 14.2 % (12.1-15.1); White Blood Count 18.1 10^3/uL (4.0-10.0)
[2021-07-09] MEDS: DAPTOMYCIN IV (08:37)
[2021-07-09] MEDS: SODIUM CHLORIDE 0.9% IV (08:37)
[2021-07-09 08:43] LABS: Alanine Aminotransferase 16 U/L (0-41); Albumin Level 3.4 g/dL (3.5-5.2); Alkaline Phosphatase 66 IU/L (40-130); Anion Gap 15.7 (5-19); Aspartate Amino Transferase 20 U/L (0-40); Blood Urea Nitrogen 23 mg/dL (8-23); Calcium 9.9 mg/dL (8.5-10.5); Carbon Dioxide 24 mmol/L (22-29); Chloride 100 mmol/L (98-107); Globulin 4.6 g/dL (1.3-4.6); Glomerular Filtration Rate 61.6 mL/min (90-130); Glucose 128 mg/dL (65-115); Osmolality Calculated 285 mOsm/kg (285-295); Potassium 4.7 mmol/L (3.5-5.1); Sodium 135 mmol/L (136-145); Total Bilirubin 0.4 mg/dL (0.15-1.2)
[2021-07-10] MEDS: ertapenem 1,000 MG in sodium chloride 0.9% (plus) 100 ML 200 MG IV (07:45)
[2021-07-10 07:51] VITALS: BP 139/59; PULSE 100; RESP 18; TEMP 36; O2SAT 92
[2021-07-10] MEDS: SODIUM CHLORIDE 0.9% IV (08:14)
[2021-07-10] MEDS: DAPTOMYCIN IV (08:14)
[2021-07-11] MEDS: ertapenem 1,000 MG in sodium chloride 0.9% (plus) 100 ML 200 MG IV (08:10)
[2021-07-11 08:17] VITALS: BP 139/66; PULSE 96; RESP 18; TEMP 36.4; O2SAT 94
[2021-07-11] MEDS: DAPTOMYCIN IV (08:49)
[2021-07-11] MEDS: SODIUM CHLORIDE 0.9% IV (08:49)
[2021-07-12] MEDS: ertapenem 1,000 MG in sodium chloride 0.9% (plus) 100 ML 200 MG IV (08:00)
[2021-07-12 08:20] VITALS: BP 118/57; PULSE 83; RESP 18; TEMP 36.1; O2SAT 98
[2021-07-12] MEDS: DAPTOMYCIN IV (08:37)
[2021-07-12] MEDS: SODIUM CHLORIDE 0.9% IV (08:37)
[2021-07-13 08:03] VITALS: BP 137/67; PULSE 94; RESP 18; TEMP 36.1; O2SAT 95
[2021-07-13] MEDS: ertapenem 1,000 MG in sodium chloride 0.9% (plus) 100 ML 200 MG IV (08:05)
[2021-07-13] MEDS: SODIUM CHLORIDE 0.9% IV (08:35)
[2021-07-13] MEDS: DAPTOMYCIN IV (08:35)
[2021-07-14] MEDS: ertapenem 1,000 MG in sodium chloride 0.9% (plus) 100 ML 200 MG IV (08:14)
[2021-07-14 08:18] VITALS: BP 135/68; PULSE 94; RESP 17; TEMP 36.1; O2SAT 98
[2021-07-14] MEDS: SODIUM CHLORIDE 0.9% IV (08:42)
[2021-07-14] MEDS: DAPTOMYCIN IV (08:42)
[2021-07-15 08:09] VITALS: BP 104/62; PULSE 82; RESP 18; TEMP 36.2; O2SAT 97
[2021-07-15] MEDS: ertapenem 1,000 MG in sodium chloride 0.9% (plus) 100 ML 200 MG IV (08:12)
[2021-07-15] MEDS: DAPTOMYCIN IV (08:45)
[2021-07-15] MEDS: SODIUM CHLORIDE 0.9% IV (08:45)
[2021-07-16] MEDS: ertapenem 1,000 MG in sodium chloride 0.9% (plus) 100 ML 200 MG IV (07:45)
[2021-07-16 08:01] LABS: Basophils # 0.2 10^3/uL (0.0-0.1); Basophils % 1.5 %; Eosinophils # 0.9 10^3/uL (0.0-0.8); Eosinophils % 7.6 %; Hemoglobin 11.2 g/dL (11.7-16.6); Lymphocytes # 1.9 10^3/uL (0.8-4.8); Lymphocytes % 15.9 %; Mean Corpuscular Hemoglobin 28.9 pg (28.0-34.0); Mean Corpuscular Volume 90.2 fl (80-94); Mean Platelet Volume 9.9 fL (7.4-10.4); Monocytes # 1.2 10^3/uL (0.2-0.9); Neutrophils # 7.53 10^3/uL (1.8-7.7); Neutrophils % 64.6 %; Nucleated Red Blood Cells % 0 %; Platelet Count 433 10^3/cmm (130-400); Red Blood Count 3.88 10^6/uL (4.1-5.3); Red Cell Distribution Width 13.9 % (12.1-15.1); White Blood Count 11.7 10^3/uL (4.0-10.0)
[2021-07-16 08:13] VITALS: BP 136/76; PULSE 77; RESP 18; TEMP 36.4; O2SAT 99
[2021-07-16] MEDS: DAPTOMYCIN IV (08:21)
[2021-07-16] MEDS: SODIUM CHLORIDE 0.9% IV (08:21)
[2021-07-16 08:22] LABS: Alanine Aminotransferase 14 U/L (0-41); Albumin Level 3.4 g/dL (3.5-5.2); Alkaline Phosphatase 70 IU/L (40-130); Anion Gap 15.7 (5-19); Aspartate Amino Transferase 16 U/L (0-40); Blood Urea Nitrogen 18 mg/dL (8-23); Calcium 9.6 mg/dL (8.5-10.5); Carbon Dioxide 25 mmol/L (22-29); Chloride 101 mmol/L (98-107); Globulin 4.3 g/dL (1.3-4.6); Glomerular Filtration Rate 68.1 mL/min (90-130); Glucose 177 mg/dL (65-115); Osmolality Calculated 290 mOsm/kg (285-295); Potassium 4.7 mmol/L (3.5-5.1); Sodium 137 mmol/L (136-145); Total Bilirubin 0.2 mg/dL (0.15-1.2); Total Protein 7.7 g/dL (6.6-8.7)
[2021-07-17] MEDS: ertapenem 1,000 MG in sodium chloride 0.9% (plus) 100 ML 200 MG IV (08:14)
[2021-07-17] MEDS: DAPTOMYCIN IV (08:14)
[2021-07-17] MEDS: SODIUM CHLORIDE 0.9% IV (08:14)
[2021-07-17 08:17] VITALS: BP 128/69; PULSE 70; RESP 18; TEMP 36.3; O2SAT 97
[2021-07-18] MEDS: ertapenem 1,000 MG in sodium chloride 0.9% (plus) 100 ML 200 MG IV (07:57)
[2021-07-18] MEDS: SODIUM CHLORIDE 0.9% IV (08:10)
[2021-07-18] MEDS: DAPTOMYCIN IV (08:10)
[2021-07-18 08:41] VITALS: BP 132/71; PULSE 80; RESP 18; TEMP 36.7; O2SAT 98
[2021-07-19] MEDS: ertapenem 1,000 MG in sodium chloride 0.9% (plus) 100 ML 200 MG IV (08:20)
[2021-07-19 08:22] VITALS: BP 148/64; PULSE 79; RESP 18; TEMP 36.4; O2SAT 98
[2021-07-19] MEDS: SODIUM CHLORIDE 0.9% IV (08:23)
[2021-07-19] MEDS: DAPTOMYCIN IV (08:23)
[2021-07-20 08:05] VITALS: BP 127/65; PULSE 79; RESP 18; TEMP 36.8; O2SAT 97
[2021-07-20] MEDS: ertapenem 1,000 MG in sodium chloride 0.9% (plus) 100 ML 200 MG IV (08:12)
[2021-07-20] MEDS: SODIUM CHLORIDE 0.9% IV (08:15)
[2021-07-20] MEDS: DAPTOMYCIN IV (08:15)
[2021-07-21 08:02] VITALS: BP 136/71; PULSE 72; RESP 18; TEMP 36.1; O2SAT 97
[2021-07-21] MEDS: ertapenem 1,000 MG in sodium chloride 0.9% (plus) 100 ML 200 MG IV (08:09)
[2021-07-21] MEDS: DAPTOMYCIN IV (08:12)
[2021-07-21] MEDS: SODIUM CHLORIDE 0.9% IV (08:12)
[2021-07-22 08:00] VITALS: BP 133/72; PULSE 92; RESP 17; TEMP 36.1; O2SAT 97
[2021-07-22] MEDS: ertapenem 1,000 MG in sodium chloride 0.9% (plus) 100 ML 200 MG IV (08:15)
[2021-07-22] MEDS: DAPTOMYCIN IV (08:16)
[2021-07-22] MEDS: SODIUM CHLORIDE 0.9% IV (08:16)
[2021-07-22 09:25] VITALS: BP 141/73; PULSE 90; RESP 17; TEMP 36.1; O2SAT 97
[2021-07-23 08:05] LABS: Basophils # 0.2 10^3/uL (0.0-0.1); Basophils % 1.2 %; Eosinophils # 0.5 10^3/uL (0.0-0.8); Eosinophils % 4.2 %; Hematocrit 39.3 % (42.0-52.0); Hemoglobin 12.7 g/dL (11.7-16.6); Lymphocytes % 16.2 %; Mean Corpuscular HGB Conc 32.3 g/dL (30.0-36.0); Mean Corpuscular Hemoglobin 29.1 pg (28.0-34.0); Mean Corpuscular Volume 89.9 fl (80-94); Mean Platelet Volume 10.1 fL (7.4-10.4); Monocytes # 1.1 10^3/uL (0.2-0.9); Monocytes % 9.2 %; Neutrophils # 8.54 10^3/uL (1.8-7.7); Neutrophils % 68.8 %; Nucleated Red Blood Cells % 0 %; Platelet Count 423 10^3/cmm (130-400); Red Blood Count 4.37 10^6/uL (4.1-5.3); White Blood Count 12.4 10^3/uL (4.0-10.0)
[2021-07-23] MEDS: ertapenem 1,000 MG in sodium chloride 0.9% (plus) 100 ML 200 MG IV (08:12)
[2021-07-23 08:27] LABS: Alanine Aminotransferase 15 U/L (0-41); Albumin Level 3.9 g/dL (3.5-5.2); Alkaline Phosphatase 68 IU/L (40-130); Aspartate Amino Transferase 21 U/L (0-40); Blood Urea Nitrogen 14 mg/dL (8-23); Calcium 8.8 mg/dL (8.5-10.5); Carbon Dioxide 24 mmol/L (22-29); Chloride 103 mmol/L (98-107); Globulin 3.7 g/dL (1.3-4.6); Glomerular Filtration Rate 68.1 mL/min (90-130); Glucose 158 mg/dL (65-115); Osmolality Calculated 292 mOsm/kg (285-295); Sodium 139 mmol/L (136-145); Total Bilirubin 0.2 mg/dL (0.15-1.2); Total Protein 7.6 g/dL (6.6-8.7)
[2021-07-23] MEDS: SODIUM CHLORIDE 0.9% IV (08:32)
[2021-07-23] MEDS: DAPTOMYCIN IV (08:32)
[2021-07-23 08:34] LABS: Anion Gap 16.7 (5-19); Potassium 4.7 mmol/L (3.5-5.1)
[2021-07-23 09:40] VITALS: BP 154/68; PULSE 99; RESP 18; TEMP 35.9; O2SAT 98
[2021-07-24] MEDS: DAPTOMYCIN IV (08:11)
[2021-07-24] MEDS: SODIUM CHLORIDE 0.9% IV (08:11)
[2021-07-24] MEDS: ertapenem 1,000 MG in sodium chloride 0.9% (plus) 100 ML 200 MG IV (08:12)
[2021-07-24 08:16] VITALS: BP 121/58; PULSE 87; RESP 18; TEMP 36.4; O2SAT 98
[2021-07-25] MEDS: ertapenem 1,000 MG in sodium chloride 0.9% (plus) 100 ML 200 MG IV (08:12)
[2021-07-25] MEDS: SODIUM CHLORIDE 0.9% IV (08:12)
[2021-07-25] MEDS: DAPTOMYCIN IV (08:12)
[2021-07-25 08:36] VITALS: BP 137/66; PULSE 80; RESP 18; TEMP 36.2; O2SAT 99
[2021-07-26] MEDS: DAPTOMYCIN IV (08:19)
[2021-07-26] MEDS: SODIUM CHLORIDE 0.9% IV (08:19)
[2021-07-26] MEDS: ertapenem 1,000 MG in sodium chloride 0.9% (plus) 100 ML 200 MG IV (08:19)
[2021-07-26 08:36] VITALS: BP 124/69; PULSE 78; RESP 18; TEMP 36.2; O2SAT 95
[2021-07-27] MEDS: ertapenem 1,000 MG in sodium chloride 0.9% (plus) 100 ML 200 MG IV (08:18)
[2021-07-27] MEDS: SODIUM CHLORIDE 0.9% IV (08:19)
[2021-07-27] MEDS: DAPTOMYCIN IV (08:19)
[2021-07-27 08:21] VITALS: BP 125/64; PULSE 77; RESP 18; TEMP 36.3; O2SAT 97
[2021-07-28] MEDS: ertapenem 1,000 MG in sodium chloride 0.9% (plus) 100 ML 200 MG IV (08:24)
[2021-07-28 08:43] VITALS: BP 145/69; PULSE 77; RESP 18; TEMP 36.1; O2SAT 99
[2021-07-28] MEDS: SODIUM CHLORIDE 0.9% IV (08:51)
[2021-07-28] MEDS: DAPTOMYCIN IV (08:51)
[2021-07-29] MEDS: ertapenem 1,000 MG in sodium chloride 0.9% (plus) 100 ML 200 MG IV (07:55)
[2021-07-29] MEDS: DAPTOMYCIN IV (07:59)
[2021-07-29] MEDS: SODIUM CHLORIDE 0.9% IV (07:59)
[2021-07-29 08:04] VITALS: BP 135/69; PULSE 71; RESP 18; TEMP 36.5; O2SAT 97
[2021-07-30 07:35] VITALS: BP 145/72; PULSE 89; RESP 18; TEMP 36.2; O2SAT 98
[2021-07-30] MEDS: ertapenem 1,000 MG in sodium chloride 0.9% (plus) 100 ML 200 MG IV (07:48)
[2021-07-30] MEDS: DAPTOMYCIN IV (07:50)
[2021-07-30] MEDS: SODIUM CHLORIDE 0.9% IV (07:50)
[2021-07-30 08:15] LABS: Basophils # 0.1 10^3/uL (0.0-0.1); Basophils % 1.2 %; Eosinophils # 0.5 10^3/uL (0.0-0.8); Eosinophils % 5.6 %; Hemoglobin 12.8 g/dL (11.7-16.6); Lymphocytes # 2.2 10^3/uL (0.8-4.8); Lymphocytes % 22.4 %; Mean Corpuscular Hemoglobin 28.9 pg (28.0-34.0); Mean Corpuscular Volume 90.3 fl (80-94); Neutrophils # 5.84 10^3/uL (1.8-7.7); Neutrophils % 60.3 %; Nucleated Red Blood Cells % 0 %; Platelet Count 343 10^3/cmm (130-400); Red Blood Count 4.43 10^6/uL (4.1-5.3); Red Cell Distribution Width 13.9 % (12.1-15.1); White Blood Count 9.7 10^3/uL (4.0-10.0)
[2021-07-30 08:35] LABS: Alanine Aminotransferase 19 U/L (0-41); Albumin Level 3.8 g/dL (3.5-5.2); Alkaline Phosphatase 60 IU/L (40-130); Aspartate Amino Transferase 20 U/L (0-40); Blood Urea Nitrogen 18 mg/dL (8-23); Calcium 8.8 mg/dL (8.5-10.5); Carbon Dioxide 25 mmol/L (22-29); Chloride 103 mmol/L (98-107); Globulin 3.6 g/dL (1.3-4.6); Glomerular Filtration Rate 61.6 mL/min (90-130); Glucose 237 mg/dL (65-115); Osmolality Calculated 298 mOsm/kg (285-295); Sodium 139 mmol/L (136-145); Total Bilirubin 0.2 mg/dL (0.15-1.2); Total Protein 7.4 g/dL (6.6-8.7)
[2021-07-31] MEDS: ertapenem 1,000 MG in sodium chloride 0.9% (plus) 100 ML 200 MG IV (08:04)
[2021-07-31] MEDS: DAPTOMYCIN IV (08:06)
[2021-07-31] MEDS: SODIUM CHLORIDE 0.9% IV (08:06)
[2021-07-31 08:10] VITALS: BP 122/66; PULSE 94; RESP 18; TEMP 36.5; O2SAT 96
[2021-08-01] MEDS: ertapenem 1,000 MG in sodium chloride 0.9% (plus) 100 ML 200 MG IV (07:58)
[2021-08-01] MEDS: DAPTOMYCIN IV (07:59)
[2021-08-01] MEDS: SODIUM CHLORIDE 0.9% IV (07:59)
[2021-08-01 08:00] VITALS: BP 127/82; PULSE 106; RESP 18; TEMP 37; O2SAT 99
[2021-08-02] MEDS: ertapenem 1,000 MG in sodium chloride 0.9% (plus) 100 ML 200 MG IV (08:03)
[2021-08-02] MEDS: SODIUM CHLORIDE 0.9% IV (08:04)
[2021-08-02] MEDS: DAPTOMYCIN IV (08:04)
[2021-08-02 08:16] VITALS: BP 116/65; PULSE 80; RESP 18; TEMP 36.4; O2SAT 98
[2021-08-03] MEDS: ertapenem 1,000 MG in sodium chloride 0.9% (plus) 100 ML 200 MG IV (08:07)
[2021-08-03] MEDS: SODIUM CHLORIDE 0.9% IV (08:08)
[2021-08-03] MEDS: DAPTOMYCIN IV (08:08)
[2021-08-03 08:11] VITALS: BP 124/66; PULSE 84; RESP 18; TEMP 36.6; O2SAT 96
[2021-08-04] MEDS: ertapenem 1,000 MG in sodium chloride 0.9% (plus) 100 ML 200 MG IV (07:54)
[2021-08-04 07:55] VITALS: BP 131/71; PULSE 75; RESP 18; TEMP 36; O2SAT 98
[2021-08-04] MEDS: SODIUM CHLORIDE 0.9% IV (08:27)
[2021-08-04] MEDS: DAPTOMYCIN IV (08:27)
== END 2021-08-04 23:59 | disposition home or self-care (01) ==
LOC: GILAB 08:00
PROVIDERS: PCP Family Medicine; Visit Provider Family Medicine
DX: E11.621 Type 2 diabetes mellitus with foot ulcer (principal); L97.523 Non-pressure chronic ulcer of other part of left foot with necrosis of muscle; I96 Gangrene, not elsewhere classified; F17.210 Nicotine dependence, cigarettes, uncomplicated; M86.9 Osteomyelitis, unspecified
CPT/HCPCS: 36592; 80053; 85025; 96365; 96367; 97597; 99212; 99213; J0878; J1335

== ENCOUNTER 2021-08-09 08:04 | Outpatient (RCR) | payer MEDICAID, SELFPAY ==
[2021-08-05 08:31] VITALS: BP 132/75; PULSE 81; RESP 16; TEMP 36.3; O2SAT 98
[2021-08-05] MEDS: ertapenem 1,000 MG in sodium chloride 0.9% (plus) 100 ML 200 MG IV (08:42)
[2021-08-05] MEDS: SODIUM CHLORIDE 0.9% IV (09:15)
[2021-08-05] MEDS: DAPTOMYCIN IV (09:15)
[2021-08-06] MEDS: ertapenem 1,000 MG in sodium chloride 0.9% (plus) 100 ML 200 MG IV (08:12)
[2021-08-06] MEDS: SODIUM CHLORIDE 0.9% IV (08:13)
[2021-08-06] MEDS: DAPTOMYCIN IV (08:13)
[2021-08-06 08:15] VITALS: BP 124/69; PULSE 75; RESP 18; TEMP 36.7; O2SAT 98
[2021-08-06 08:40] LABS: Basophils # 0.1 10^3/uL (0.0-0.1); Basophils % 1.2 %; Eosinophils # 0.4 10^3/uL (0.0-0.8); Eosinophils % 4.4 %; Hematocrit 40.1 % (42.0-52.0); Lymphocytes # 2.4 10^3/uL (0.8-4.8); Lymphocytes % 24.2 %; Mean Corpuscular HGB Conc 32.4 g/dL (30.0-36.0); Mean Corpuscular Hemoglobin 29.1 pg (28.0-34.0); Mean Corpuscular Volume 89.9 fl (80-94); Mean Platelet Volume 11.3 fL (7.4-10.4); Monocytes # 1.1 10^3/uL (0.2-0.9); Monocytes % 11.3 %; Neutrophils # 5.67 10^3/uL (1.8-7.7); Neutrophils % 58.5 %; Nucleated Red Blood Cells % 0 %; Platelet Count 314 10^3/cmm (130-400); Red Blood Count 4.46 10^6/uL (4.1-5.3); White Blood Count 9.7 10^3/uL (4.0-10.0)
[2021-08-06 09:17] LABS: Alanine Aminotransferase 21 U/L (0-41); Albumin Level 3.8 g/dL (3.5-5.2); Alkaline Phosphatase 58 IU/L (40-130); Aspartate Amino Transferase 21 U/L (0-40); Blood Urea Nitrogen 20 mg/dL (8-23); Calcium 9.8 mg/dL (8.5-10.5); Carbon Dioxide 25 mmol/L (22-29); Chloride 104 mmol/L (98-107); Glomerular Filtration Rate 61.6 mL/min (90-130); Glucose 206 mg/dL (65-115); Osmolality Calculated 295 mOsm/kg (285-295); Sodium 138 mmol/L (136-145); Total Bilirubin 0.2 mg/dL (0.15-1.2); Total Protein 7.8 g/dL (6.6-8.7)
[2021-08-07] MEDS: SODIUM CHLORIDE 0.9% IV (08:00)
[2021-08-07] MEDS: ertapenem 1,000 MG in sodium chloride 0.9% (plus) 100 ML 200 MG IV (08:00)
[2021-08-07] MEDS: DAPTOMYCIN IV (08:00)
[2021-08-07 08:05] VITALS: BP 144/71; PULSE 81; RESP 18; TEMP 36.4; O2SAT 99
[2021-08-08] MEDS: ertapenem 1,000 MG in sodium chloride 0.9% (plus) 100 ML 200 MG IV (08:16)
[2021-08-08] MEDS: DAPTOMYCIN IV (08:18)
[2021-08-08] MEDS: SODIUM CHLORIDE 0.9% IV (08:18)
[2021-08-08 08:19] VITALS: BP 153/78; PULSE 94; RESP 18; TEMP 36.1; O2SAT 98
[2021-08-09] MEDS: ertapenem 1,000 MG in sodium chloride 0.9% (plus) 100 ML 200 MG IV (08:14)
[2021-08-09] MEDS: DAPTOMYCIN IV (08:15)
[2021-08-09] MEDS: SODIUM CHLORIDE 0.9% IV (08:15)
[2021-08-09 08:34] VITALS: BP 115/69; PULSE 86; RESP 18; TEMP 36.3; O2SAT 99
--- NOTE | 2021-08-09 09:02 | PC.NURSE ---
Last dose of Ertapenem and Daptomycin completed. PICC line discontinued from right upper arm as ordered. Pressure held for approx 5 min. No bleeding or hematoma noted. Pt educated to return to ER for any SOB or chest pain and to look for signs and symptoms of infection such as redness, warmth, or drainage from site.
== END 2021-09-04 23:59 | disposition home or self-care (01) ==
LOC: GILAB 08:04
PROVIDERS: PCP Family Medicine; Visit Provider Family Medicine
DX: M86.9 Osteomyelitis, unspecified (principal)
CPT/HCPCS: 36592; 80053; 85025; 96365; 96367; J0878; J1335

== ENCOUNTER → 2021-09-04 11:06 | Outpatient (BNVA) | payer MEDICAID, SELFPAY | PROVIDERS: PCP Family Medicine; Visit Provider Podiatrist Foot & Ankle Surgery | DX: I73.9 Peripheral vascular disease, unspecified (principal); E11.42 Type 2 diabetes mellitus with diabetic polyneuropathy; Z79.4 Long term (current) use of insulin; L60.3 Nail dystrophy; Z89.421 Acquired absence of other right toe(s); Z89.422 Acquired absence of other left toe(s) | CPT/HCPCS: 11055; 11720; 99203; 99204 ==

== ENCOUNTER 2021-10-29 13:29 | Outpatient (CLI) | payer MEDICAID, SELFPAY ==
--- NOTE | 2021-10-29 14:15 | USCV_ITS ---
Marquis Ballard Age: 60 Gender: M : 1960 Exam Date: 10/29/2021 13:44 Ordering Phys: Juany Guajardo DO Technologist: AYAN [place] [facility] [place]: [place]AD, DM Risk Factors: Previous Vascular Surgery: RIGHT LEFT BP: 83.00 / 44.00 BP: 89.00/ 44.00 Waveform Velocity (cm/s) Velocity (cm/s) Waveform Triphasic 87.2 Iliac Prox Triphasic 78.7 Iliac Mid Triphasic 90.0 Iliac Distal Triphasic 118.1 CHERRY GROWER Triphasic 122.3 SFA Prox Triphasic 81.2 SFA Mid Triphasic 93.1 SFA Dist Triphasic 116.2 POP Triphasic 95.7 LEAD CUSTODIAN Triphasic 61.5 DPA 1.4 LYNNETTE FINDINGS Normal resting LYNNETTE on the right side Normal arterial Doppler waveforms and Doppler flow velocities. Mild to moderate diffuse plaque in the iliac and femoral arteries on the right side. CONCLUSIONS Mild to moderate diffuse plaque in the iliac and femoral arteries on the right side. Normal LYNNETTE on the right side. No significant arterial obstruction based on the above findings Dr Chuyita Sotelo MD FAC (Electronically Signed) Final Date: 30 October 2021 20:32 S
== END 2021-10-29 13:30 | disposition home or self-care (01) ==
LOC: RAD 13:30
PROVIDERS: PCP Family Medicine; Visit Provider Family Medicine
DX: I73.9 Peripheral vascular disease, unspecified (principal); E11.9 Type 2 diabetes mellitus without complications; I70.8 Atherosclerosis of other arteries
CPT/HCPCS: 93926

== ENCOUNTER → 2021-11-02 13:28 | Outpatient (BNVA) | payer MEDICAID, SELFPAY | PROVIDERS: PCP Family Medicine; Visit Provider Family Medicine | DX: E11.65 Type 2 diabetes mellitus with hyperglycemia (principal); Z79.4 Long term (current) use of insulin; Z96.642 Presence of left artificial hip joint | CPT/HCPCS: 80053; 83036 ==

== ENCOUNTER → 2021-11-06 10:30 | Outpatient (BNVA) | payer MEDICAID, SELFPAY | PROVIDERS: PCP Family Medicine; Visit Provider Podiatrist Foot & Ankle Surgery | DX: E11.8 Type 2 diabetes mellitus with unspecified complications (principal); I73.9 Peripheral vascular disease, unspecified; E11.42 Type 2 diabetes mellitus with diabetic polyneuropathy; L60.3 Nail dystrophy; Z89.421 Acquired absence of other right toe(s); Z89.422 Acquired absence of other left toe(s) | CPT/HCPCS: 11055; 11720 ==

== ENCOUNTER 2021-11-27 11:24 | Outpatient (CLI) | payer MEDICAID, SELFPAY ==
[2021-11-27 12:24] LABS: Basophils # 0.1 10^3/uL (0.0-0.1); Eosinophils # 0.2 10^3/uL (0.0-0.8); Eosinophils % 2.3 %; Hemoglobin 13.9 g/dL (11.7-16.6); Lymphocytes % 18.9 %; Mean Corpuscular HGB Conc 33.1 g/dL (30.0-36.0); Mean Corpuscular Hemoglobin 29.8 pg (28.0-34.0); Mean Corpuscular Volume 89.9 fl (80-94); Mean Platelet Volume 11.9 fL (7.4-10.4); Monocytes # 1.3 10^3/uL (0.2-0.9); Monocytes % 12.4 %; Nucleated Red Blood Cells % 0 %; Platelet Count 280 10^3/cmm (130-400); Red Blood Count 4.67 10^6/uL (4.1-5.3); White Blood Count 10.4 10^3/uL (4.0-10.0)
[2021-11-27 12:56] LABS: Calcium 9.8 mg/dL (8.5-10.5); Creatinine Urine, Random 38 mg/dL (39-259)
[2021-11-27 12:58] LABS: Albumin Level 3.7 g/dL (3.5-5.2); Anion Gap 15.7 (5-19); Blood Urea Nitrogen 21 mg/dL (8-23); Calcium 9.6 mg/dL (8.5-10.5); Carbon Dioxide 27 mmol/L (22-29); Chloride 97 mmol/L (98-107); Glomerular Filtration Rate 68.1 mL/min (90-130); Glucose 447 mg/dL (65-115); Phosphorus 3.5 mg/dL (2.5-4.5); Potassium 4.7 mmol/L (3.5-5.1); Sodium 135 mmol/L (136-145)
[2021-11-27 13:03] LABS: Parathyroid Hormone 20.4 pg/mL (15-65)
[2021-11-27 13:08] LABS: Microalbum Creatinine Ratio Ur 1605 mg/dL (0-20); Microalbumin Random Urine 61 ug/dL (0-20)
[2021-11-27 13:13] LABS: 25 Hydroxy Vitamin D 46 ng/mL (30-100)
== END 2021-11-27 11:25 | disposition home or self-care (01) ==
PROVIDERS: PCP Family Medicine; Visit Provider Internal Medicine Nephrology
DX: N18.31 Chronic kidney disease, stage 3a (principal)
CPT/HCPCS: 36415; 80069; 82044; 82306; 82310; 83970; 85025

== ENCOUNTER → 2021-12-04 08:26 | Outpatient (BNVA) | payer MEDICAID, SELFPAY | PROVIDERS: PCP Family Medicine; Visit Provider Podiatrist Foot & Ankle Surgery | DX: I73.9 Peripheral vascular disease, unspecified (principal); E11.42 Type 2 diabetes mellitus with diabetic polyneuropathy; L60.3 Nail dystrophy; Z89.421 Acquired absence of other right toe(s); Z89.422 Acquired absence of other left toe(s); R26.81 Unsteadiness on feet; M25.372 Other instability, left ankle | CPT/HCPCS: 11055; 11721; 73630; 99213 ==

== ENCOUNTER → 2022-01-29 08:48 | Outpatient (BNVA) | payer SELFPAY | PROVIDERS: PCP Family Medicine; Visit Provider Podiatrist Foot & Ankle Surgery | DX: I73.9 Peripheral vascular disease, unspecified (principal); E11.8 Type 2 diabetes mellitus with unspecified complications; E11.42 Type 2 diabetes mellitus with diabetic polyneuropathy; L60.3 Nail dystrophy; Z89.421 Acquired absence of other right toe(s); Z89.422 Acquired absence of other left toe(s); R26.81 Unsteadiness on feet; M25.372 Other instability, left ankle; Z79.84 Long term (current) use of oral hypoglycemic drugs; Z79.4 Long term (current) use of insulin | CPT/HCPCS: 11055; 11720 ==

== ENCOUNTER → 2022-01-31 08:57 | Outpatient (BNVA) | payer MEDICAID, SELFPAY | PROVIDERS: PCP Family Medicine; Visit Provider Family Medicine | DX: E11.65 Type 2 diabetes mellitus with hyperglycemia (principal); E78.5 Hyperlipidemia, unspecified | CPT/HCPCS: 80053; 80061; 83036 ==

== ENCOUNTER → 2022-03-20 14:51 | Outpatient (BNVA) | payer MEDICAID, SELFPAY | PROVIDERS: PCP Family Medicine; Visit Provider Podiatrist Foot & Ankle Surgery | DX: E11.621 Type 2 diabetes mellitus with foot ulcer (principal); L97.523 Non-pressure chronic ulcer of other part of left foot with necrosis of muscle; E11.8 Type 2 diabetes mellitus with unspecified complications; I73.9 Peripheral vascular disease, unspecified; E11.42 Type 2 diabetes mellitus with diabetic polyneuropathy; L60.3 Nail dystrophy; Z89.421 Acquired absence of other right toe(s); Z89.422 Acquired absence of other left toe(s); R26.81 Unsteadiness on feet; M25.372 Other instability, left ankle; Z79.84 Long term (current) use of oral hypoglycemic drugs; Z79.4 Long term (current) use of insulin | CPT/HCPCS: 11043 ==

== ENCOUNTER → 2022-03-27 08:59 | Outpatient (BNVA) | payer MEDICAID, SELFPAY | PROVIDERS: PCP Family Medicine; Visit Provider Podiatrist Foot & Ankle Surgery | DX: E11.621 Type 2 diabetes mellitus with foot ulcer (principal); L97.523 Non-pressure chronic ulcer of other part of left foot with necrosis of muscle; E11.8 Type 2 diabetes mellitus with unspecified complications; I73.9 Peripheral vascular disease, unspecified; E11.42 Type 2 diabetes mellitus with diabetic polyneuropathy; L60.3 Nail dystrophy; Z89.421 Acquired absence of other right toe(s); Z89.422 Acquired absence of other left toe(s); R26.81 Unsteadiness on feet; M25.372 Other instability, left ankle; Z79.84 Long term (current) use of oral hypoglycemic drugs; Z79.4 Long term (current) use of insulin | CPT/HCPCS: 11042 ==

== ENCOUNTER → 2022-04-10 09:03 | Outpatient (BNVA) | payer MEDICAID, SELFPAY | PROVIDERS: PCP Family Medicine; Visit Provider Podiatrist Foot & Ankle Surgery | DX: E11.621 Type 2 diabetes mellitus with foot ulcer (principal); L97.523 Non-pressure chronic ulcer of other part of left foot with necrosis of muscle; E11.8 Type 2 diabetes mellitus with unspecified complications; I73.9 Peripheral vascular disease, unspecified; E11.42 Type 2 diabetes mellitus with diabetic polyneuropathy; L60.3 Nail dystrophy; Z89.421 Acquired absence of other right toe(s); Z89.422 Acquired absence of other left toe(s); R26.81 Unsteadiness on feet; M25.372 Other instability, left ankle; Z79.84 Long term (current) use of oral hypoglycemic drugs; Z79.4 Long term (current) use of insulin | CPT/HCPCS: 11042 ==

== ENCOUNTER 2022-04-15 10:11 | Outpatient (CLI) | payer MEDICAID, SELFPAY ==
--- NOTE | 2022-04-15 10:23 | XRR_ITS ---
PROCEDURE INFORMATION: Exam: XR Left Foot Exam date and time: 04/15/2022 10:26 AM Age: 61 years old Clinical indication: Condition or disease; Other: Non-healing ulcer; ; Prior surgery; Surgery type: Toes; Additional info: Non-healing ulcer; Rule out osteomyelitis TECHNIQUE: Imaging protocol: Radiologic exam of the Left foot. Views: 3 or more views. COMPARISON: CR XR foot LT min 3V* [id number] 12/04/2021 8:28 AM FINDINGS: Bones/joints: Similar appearance of the left foot after transmetatarsal amputation of the 2nd through 5th toes. No clear evidence of focal osteopenia, cortical destruction or periosteal reaction to suggest osteomyelitis. No acute fracture or dislocation. Soft tissues: Normal. XR/XR foot LT min 3V* [id number] IMPRESSION: Similar appearance of the left foot after transmetatarsal amputation of the 2nd through 5th toes. No clear radiographic evidence of osteomyelitis.
== END 2022-04-15 10:12 | disposition home or self-care (01) ==
LOC: RAD 10:13
PROVIDERS: PCP Family Medicine; Visit Provider Thoracic Surgery (Cardiothoracic Vascular Surgery)
DX: E11.621 Type 2 diabetes mellitus with foot ulcer (principal); L97.509 Non-pressure chronic ulcer of other part of unspecified foot with unspecified severity; Z89.422 Acquired absence of other left toe(s)
CPT/HCPCS: 73630; 87077; 87186

== ENCOUNTER → 2022-04-22 08:39 | Outpatient (BNVA) | payer MEDICAID, SELFPAY | PROVIDERS: PCP Family Medicine; Visit Provider Thoracic Surgery (Cardiothoracic Vascular Surgery) | DX: I96 Gangrene, not elsewhere classified (principal); L89.892 Pressure ulcer of other site, stage 2 | CPT/HCPCS: 11042; A6252 ==

== ENCOUNTER 2022-04-29 10:27 | Outpatient (CLI) | payer MEDICAID, SELFPAY ==
[2022-04-29 11:14] LABS: Anion Gap 10.6 (5-19); Blood Urea Nitrogen 11 mg/dL (8-23); Calcium 9.2 mg/dL (8.5-10.5); Carbon Dioxide 28 mmol/L (22-29); Chloride 95 mmol/L (98-107); Glomerular Filtration Rate 75.7 mL/min (90-130); Glucose 297 mg/dL (65-115); Osmolality Calculated 278 mOsm/kg (285-295); Potassium 4.6 mmol/L (3.5-5.1); Sodium 129 mmol/L (136-145)
== END 2022-04-29 10:28 | disposition home or self-care (01) ==
PROVIDERS: PCP Family Medicine; Visit Provider Thoracic Surgery (Cardiothoracic Vascular Surgery)
DX: E11.621 Type 2 diabetes mellitus with foot ulcer (principal); L97.509 Non-pressure chronic ulcer of other part of unspecified foot with unspecified severity
CPT/HCPCS: 11042; 36415; 80048

== ENCOUNTER 2022-04-29 15:19 | Outpatient (CLI) | payer MEDICAID, SELFPAY | END 2022-04-29 15:20 | disposition home or self-care (01) | LOC: SPT 15:23 | PROVIDERS: PCP Family Medicine; Visit Provider Podiatrist Foot & Ankle Surgery | DX: Z46.89 Encounter for fitting and adjustment of other specified devices (principal); E11.621 Type 2 diabetes mellitus with foot ulcer | CPT/HCPCS: 97760; L4361 ==

== ENCOUNTER → 2022-05-06 09:59 | Outpatient (BNVA) | payer MEDICAID, SELFPAY | PROVIDERS: PCP Family Medicine; Visit Provider Thoracic Surgery (Cardiothoracic Vascular Surgery) | DX: I96 Gangrene, not elsewhere classified (principal); E11.621 Type 2 diabetes mellitus with foot ulcer; L89.892 Pressure ulcer of other site, stage 2 | CPT/HCPCS: 11042 ==

== ENCOUNTER → 2022-05-13 10:42 | Outpatient (BNVA) | payer MEDICAID, SELFPAY | PROVIDERS: PCP Family Medicine; Visit Provider Thoracic Surgery (Cardiothoracic Vascular Surgery) | DX: I96 Gangrene, not elsewhere classified (principal); E11.621 Type 2 diabetes mellitus with foot ulcer; L89.892 Pressure ulcer of other site, stage 2 | CPT/HCPCS: 11043 ==

== ENCOUNTER 2022-05-16 12:28 | Outpatient (CLI) | payer MEDICAID, SELFPAY ==
--- NOTE | 2022-05-16 12:30 | CT_ITS ---
WS: [id number] CT ANGIOGRAPHY OF THE ABDOMINAL AORTA WITH RUNOFF TO THE ANKLES HISTORY: non-healing ulcer, reduced LYNNETTE TECHNIQUE: Arterial injection is performed during imaging to evaluate the aorta and runoff vessels to the ankles. MIP and volume rendering imaging has also been performed. All images are reviewed. All C T scans at [facility] use at least one of these dose optimization techniques: automated exposu re control; mA and/or kV adjustment per patient size (includes targeted exams where dose is matched t o clinical indication); or iterative reconstruction. Contrast: Omnipaque 350; 100 mL IV. DLP: 1506.59 mGy.cm COMPARISON: 05/27/2018 Lung bases are clear. Normal size heart. Abdominal aorta: Normal abdominal aorta with no aneurysm. There is a small amount of plaque. No ulcer ated plaque. Small amount calcium at the origin of the celiac axis. No high-grade stenosis. Patent SM A. May renal arteries are both intact. Bilateral accessory renal arteries. [place] is patent but there is significant plaque proximally. RIGHT lower extremity arterial system: Scattered plaque and mild atherosclerotic changes throughout t he common, internal and external iliac arteries. More focal plaque beginning in the femoral artery. D eep profunda is intact. Multifocal areas of stenosis within the superficial femoral artery. Stenosis range from 40-60%. Most significant stenosis in the popliteal artery. 50% stenosis in Ash's canal. Anterior tibial artery is intact. Very small caliber peroneal and posterior tibial arteries. Posteri or tibial artery is intermittently visualized plaque. LEFT lower extremity arterial system: Mild atherosclerotic plaque in the common and external iliac ar nisa. Heavy calcified internal iliac artery. Femoral and deep profunda are both enhancing. Scattered plaque throughout the SFA. There is less robust enhancement of the LEFT lower extremity artery. Arter ial regalado demonstrate increasing calcification. High-grade stenosis if not occlusion in the distal Hu nter's canal. The flow is very limited to the distal SFA to the popliteal artery. Very small caliber and diseased arteries below the knee. Very limited opacification. Heavy calcification in the wall of the arteries below the knees. Unremarkable liver, spleen and gallbladder and pancreas. No adrenal mass. No bile duct dilatation. No GI tract obstruction. IMPRESSION: 1. No aortic aneurysm. 2. Progression of atherosclerotic plaque throughout the lower extremity arteries. Greater progressio n on the LEFT. 3. RIGHT lower extremity: 40-60% areas of stenosis throughout the femoral artery to Ash's canal a nd the popliteal artery. 4. RIGHT lower extremity: Limited runoff to the ankle. Moderately diseased arteries, most significan t posterior tibial artery. 5. LEFT lower extremity: Moderate disease progression since the prior study. There is less robust ar terial enhancement with increased amount of soft plaque and calcified plaque. High-grade stenoses beg inning Ash's canal into the popliteal artery with only poor visualization of the lumen. Stenosis g reater than 70%. Limited runoff to the ankle below the knee. Arteries are calcified obscuring the lum en but there is very little contrast enhancement below the knee.
[2022-05-16] MEDS: iohexol 350 mg/mL 500 mL Btl (per mL) IV (14:23)
== END 2022-05-16 12:29 | disposition home or self-care (01) ==
LOC: RAD 12:30
PROVIDERS: PCP Family Medicine; Visit Provider Thoracic Surgery (Cardiothoracic Vascular Surgery)
DX: E11.621 Type 2 diabetes mellitus with foot ulcer (principal); L97.509 Non-pressure chronic ulcer of other part of unspecified foot with unspecified severity
CPT/HCPCS: 11043; 75635; 87070; 87176; 87205; 99213; Q9967

== ENCOUNTER → 2022-05-20 10:42 | Outpatient (BNVA) | payer MEDICAID, SELFPAY | PROVIDERS: PCP Family Medicine; Visit Provider Thoracic Surgery (Cardiothoracic Vascular Surgery) | DX: I96 Gangrene, not elsewhere classified (principal); E11.621 Type 2 diabetes mellitus with foot ulcer; L89.892 Pressure ulcer of other site, stage 2 | CPT/HCPCS: 11042 ==

== ENCOUNTER → 2022-05-21 12:11 | Outpatient (BNVA) | payer MEDICAID, SELFPAY | PROVIDERS: PCP Family Medicine; Visit Provider Family Medicine | DX: E11.65 Type 2 diabetes mellitus with hyperglycemia (principal); E11.621 Type 2 diabetes mellitus with foot ulcer; L97.529 Non-pressure chronic ulcer of other part of left foot with unspecified severity; E11.42 Type 2 diabetes mellitus with diabetic polyneuropathy; E78.5 Hyperlipidemia, unspecified | CPT/HCPCS: 80053; 83036 ==

== ENCOUNTER → 2022-05-22 15:35 | Outpatient (BNVA) | payer MEDICAID, SELFPAY | PROVIDERS: PCP Family Medicine; Visit Provider Internal Medicine Cardiovascular Disease | DX: I77.9 Disorder of arteries and arterioles, unspecified (principal); E78.5 Hyperlipidemia, unspecified; E11.621 Type 2 diabetes mellitus with foot ulcer; L97.529 Non-pressure chronic ulcer of other part of left foot with unspecified severity; F17.210 Nicotine dependence, cigarettes, uncomplicated; Z79.4 Long term (current) use of insulin | CPT/HCPCS: 99214 ==

== ENCOUNTER → 2022-05-27 11:47 | Outpatient (BNVA) | payer MEDICAID, SELFPAY | PROVIDERS: PCP Family Medicine; Visit Provider Thoracic Surgery (Cardiothoracic Vascular Surgery) | DX: E11.621 Type 2 diabetes mellitus with foot ulcer (principal); I96 Gangrene, not elsewhere classified; L89.892 Pressure ulcer of other site, stage 2 | CPT/HCPCS: 11043; 87070; 87077; 87176; 87186; 87205 ==

== ENCOUNTER → 2022-06-03 10:46 | Outpatient (BNVA) | payer MEDICAID, SELFPAY | PROVIDERS: PCP Family Medicine; Visit Provider Thoracic Surgery (Cardiothoracic Vascular Surgery) | DX: I96 Gangrene, not elsewhere classified (principal); E11.621 Type 2 diabetes mellitus with foot ulcer; L89.892 Pressure ulcer of other site, stage 2 | CPT/HCPCS: 11044; 87070; 87077; 87176; 87186; 87205 ==

== ENCOUNTER → 2022-06-04 13:46 | Outpatient (BNVA) | payer MEDICAID, SELFPAY | PROVIDERS: PCP Family Medicine; Visit Provider Podiatrist Foot & Ankle Surgery | DX: E11.621 Type 2 diabetes mellitus with foot ulcer (principal); L97.522 Non-pressure chronic ulcer of other part of left foot with fat layer exposed; E11.69 Type 2 diabetes mellitus with other specified complication; M86.172 Other acute osteomyelitis, left ankle and foot; E11.65 Type 2 diabetes mellitus with hyperglycemia | CPT/HCPCS: 73630; 99215 ==

== ENCOUNTER 2022-06-06 10:24 | Observation (INO) | payer MEDICAID, SELFPAY ==
[2022-06-06] VITALS (29 sets, daily range): BP systolic 110–142; BP diastolic 63–81; PULSE 62–90; RESP 7–21; TEMP 36.7–36.9; O2SAT 92–97; BMI 29.3
--- NOTE | 2022-06-06 06:00 | XACV_ITS ---
Ht: 175 cm Wt: 90 kg BSA: 2.12 m2 Any Known Allergies: Sulfa Gender: Male : 1960 Exam Type: Invasive Peripheral Vascular Procedure(s): Procedure Description: Peripheral Cath Diagnostic Procedure Procedure Description: Lower extremities' angiography Procedure Description: Peripheral vascular Intervention Procedure Description: PV Balloon Exam Priority: Routine Abdominal Diagnostic Findings Distal abdominal aorta: Patent. Lower Extremity Diagnostic Findings INDICATION: Non healing left foot wound/ severe peripheral artery disease. Left lower extremity: Left common iliac artery: Patent. Left external iliac artery: Patent. Left Common femoral artery: Patent. Left SFA: Patent. Left Profunda: Patent. Left popliteal artery Patent. Left Anterior tibial artery: Has 2 serial severe 80-90% stenosis. Left TP segment: Has 70-80% stenosis. Left peroneal artery: Patent. Is distally occluded. Left posterior tibial artery: Has severe 90% stenosis. Right lower extremity : Right common iliac artery is patent. Right external iliac artery is patent. Right common femoral artery is found to be patent. Right SFA also is patent however in distal segment has 40 to 50% stenosis. Right profunda has no significant stenosis. Right popliteal artery does not show significant disease. Right TP segment is patent. Right anterior tibial artery is patent. Right posterior tibial artery is occluded. The right peroneal artery is patent.. Left Mid-longitudinal Tibioperoneal Trunk: 70% stenosis. Left Mid-longitudinal Tibioperoneal Trunk: 70% stenosis. Lower Extremity Interventional Findings Procedure detail: We used seeker support catheter and run-through guidewire to cross into the anterior tibial artery. IV heparin was administered to obtain ACT above 250 S. We performed balloon angioplasty with 3.0 x 40 mm balloon. This improved flow significantly and no residual stenosis seen. We then advanced the wire and to posterior tibial artery. TP segment underwent balloon angioplasty with 4.0 x 60 mm balloon. We then used a 2.0 x 120 mm balloon to perform balloon angioplasty of posterior tibial artery. At this time final angiogram was performed that showed excellent flow in all 3 arteries. Long sheath was switched over to short 6 Macedonian sheath. Patient left the Director Labor Standards in a stable condition.. Left Mid-longitudinal Tibioperoneal Trunk: 70% stenosis treated with AB ARMADA 35 OTW [id number]. Left Mid-longitudinal Tibioperoneal Trunk: 70% stenosis treated with AB ARMADA 35 OTW [id number]. Conclusions Severe bilateral below the knee peripheral artery disease. Successful revascularization of left lower extremity with balloon angioplasty of left TP segment, Left anterior tibial artery and left posterior tibial artery. Recommendations Aggressive risk factor modification. Aspirin and plavix. High intensity statin therapy. Outpatient cardiology follow up in 4 weeks. Continue following with wound care. Hemodynamic Data Phase:Rest AO : 130.0 / 57.0 ( 85.0 ) @ 8:13:00 AM 126.0 / 56.0 ( 83.0 ) @ 8:22:00 AM Access Site Site: Right Femoral artery Sheath Size: 6 Fr Hemost... Method: Suture Hemost... Success: Successful Procedure Details Findings Procedure Consent Obtained. Admit Source: Out Patient. Pre-Procedure Time Out. Identified patient by full name and date of as verbalized by the patient/guarantor. Does the consent match the physician's order: Yes. Accurate & Complete Informed Consent: Yes. Inpatient/Outpatient History & Physical on Chart: Yes. If H&P is completed, is and addenduem needed: No; If yes, is the addendum complete: N/A. Visualize and Verify Site with Patient/Guarantor: N/A. Relevant Radiology Images available: Yes. The risks, benefits, and alternatives of sedation and/or procedure were discussed by physician. The patient agrees to continue. Vital chart was stopped. Procedure started. Correct patient, site and procedure confirmed by cath team. PERRLA. Strong, equal hand faculty member bilaterally. Lungs clear x 5 lobes. IV Site on Arrival: 20 gauge in the right anticubital. IV Fluids: 0.9% NaCl at KVO. 0 mL infused prior to shellfish processing laborer. Pre Procedural Pulses: bilateral dorsalis pedis was Doppled. Pre Procedural Pulses: bilateral posterior tibial was Doppled. Oxygen started at 2liters/min via nasal canula. bilateral groins was prepped with chloroprep then draped in the usual sterile fashion. Physician notified. Baseline sample Acquired. HR: 79 BPM. Physician arrived. Physician scrubbed in. Time out performed with cath team. Lidocaine 1% infiltrated to the right groin. Wire and needle out. Arterial access obtained with micropuncture set. Arterial access obtained with micropuncture set. A 5FrFr UF catheter in over wire. Abdominal aortogram performed in YING @ 10 mL/sec for a total of 30 mL. Glidewire inserted. Runoff of left leg. YING @10ml/sec for a total of 30 ml. DSA run of the left leg below the knee. Weldon wire inserted. Catheter removed over the glide wire. Short sheath exchanged for long flexor 45 cm sheath. Seeker catheter inserted over wire. Glidewire removed. Glidewire inserted. Side port of sheath attached to Normal Saline flush at KVO to maintain patency. Weldon wire out. Command wire inserted. command wire out. Comand wire inserted. command wire out. Runthough wire inserted. Hand injection performed through seeker catheter. Seeker catheter out. Hand injection performed through seeker catheter. Inflation number : 1 A AB ARMADA 14 OTW [id number] was prepped and advanced across the Proximal Anterior Tibial, Left , then inflated to 8 RUMA for 0:32 seconds. Inflation number: 2 The AB ARMADA 14 OTW [id number] was reinflated across the Proximal Anterior Tibial, Left, to 8 RUMA for 1:00 seconds. Inflation number: 3 The AB ARMADA 14 OTW [id number] was reinflated across the Proximal Anterior Tibial, Left, to 8 RUMA for 1:01 seconds. Inflation number: 4 The AB ARMADA 14 OTW [id number] was reinflated across the Proximal Anterior Tibial, Left, to 8 RUMA for 1:01 seconds. Balloon out. Balloon inserted over the wire to the anterior tibial. Seeker catheter inserted. Wire out. Hand injection performed through seeker catheter. Command wire in through seeker catheter. Seeker out over the wire. Inflation number : 1 A AB ARMADA 35 OTW [id number] was prepped and advanced across the Tibial Peroneal Trunk, Left1 , then inflated to 0 RUMA for 1:01 seconds. Inflation number: 1 The AB ARMADA 35 OTW [id number] was reinflated across the Tibial Peroneal Trunk, Left, to 8 RUMA for 1:00 seconds. Balloon out. Inflation number : 2 A AB ARMADA 14 OTW [id number] was prepped and advanced across the posterior tibial artery, Left , then inflated to 8 RUMA for 1:03 seconds. Inflation number: 1 The AB ARMADA 14 OTW [id number] was reinflated across the Posterior tibial artery, Left, to 8 RUMA for 1:01 seconds. Seeker inserted. Wire out. Hand injection performed through seeker catheter. Hand injection performed in DSA through seeker catheter. Glidewire in though seeker. Seeker out. Long sheath exchanged for short sheath. Runoff of righ leg. YING @10ml/sec for a total of 30 ml. ACT drawn. Results 225 seconds. Therapeutic limits - pre-heparin administration 90-150 seconds and monitoring heparin during a vascular procedure >250 seconds. PERRLA. Strong, equal hand faculty member bilaterally. No VTE prophylaxis required. Medication's Wasted: Heparin = 1000 units. Medication's Wasted: Nitro = 49.6 mg. Total IV fluids: 98 mL. A Suture was successful obtaining hemostatsis at the Right Femoral artery insertion site. Post-op diagnosis: severe multivessel stenosis below the knee. s/p angiopasty of AT,PA and TP trunk. Complications: none. Estimated blood loss: 5mL-10mL. Responsiveness - Normal response to verbal stimuli; alert and oriented, PERRLA. Airway - Unaffected, no intervention required; spontaneous ventilation. Circulation: W/N/L, pulses unchanged. Nausea/Vomiting: No. Procedure completed. Patient transferred by bed to CPRU. Vital chart was stopped. Procedure Medications Start: 7:49 AM Stop: 7:49 AM Medication: Versed Amount: 1 mg Route: I.V. Start: 7:49 AM Stop: 7:49 AM Medication: Fentanyl Amount: 50 mcg Route: I.V. Start: 8:36 AM Stop: 8:36 AM Medication: Heparin Amount: 7000 units Route: I.V. Start: 9:00 AM Stop: 9:00 AM Medication: Nitrogylcerin Amount: 400 mcg Route: I.A. Start: 9:04 AM Stop: 9:04 AM Medication: Heparin Amount: 1000 units Route: I.V. I, the attending physician, have reviewed and verified all procedure medications. Yes, all medications given per verbal order History/Risk Factors Hypertension: Yes Dyslipidemia: Yes Peripheral Arterial Disease (PAD): No Obesity: No Renal Disease: No Tobacco Use: Current/Recent(w/in 1 year) Prior Interventions PCI: No CABG: No Valve Surgery: No Report Signatures Finalized by John Toro MD on 06/10/2022 11:28 AM
[2022-06-06] MEDS: diphenhydrAMINE 50 mg Capsule PO (06:24)
[2022-06-06 06:45] LABS: Basophils # 0.1 10^3/uL (0.0-0.1); Basophils % 0.6 %; Eosinophils # 1.1 10^3/uL (0.0-0.8); Eosinophils % 6.7 %; Hemoglobin 11.8 g/dL (11.7-16.6); Lymphocytes # 2.6 10^3/uL (0.8-4.8); Lymphocytes % 15.7 %; Mean Corpuscular HGB Conc 31.1 g/dL (30.0-36.0); Mean Corpuscular Hemoglobin 27.9 pg (28.0-34.0); Mean Corpuscular Volume 89.8 fl (80-94); Mean Platelet Volume 9.5 fL (7.4-10.4); Monocytes # 1.6 10^3/uL (0.2-0.9); Monocytes % 10.1 %; Neutrophils # 10.81 10^3/uL (1.8-7.7); Neutrophils % 66.5 %; Nucleated Red Blood Cells % 0 %; Platelet Count 589 10^3/cmm (130-400); Red Blood Count 4.23 10^6/uL (4.1-5.3); White Blood Count 16.3 10^3/uL (4.0-10.0)
[2022-06-06 06:53] LABS: Anion Gap 16.4 (5-19); Blood Urea Nitrogen 25 mg/dL (8-23); Calcium 8.8 mg/dL (8.5-10.5); Carbon Dioxide 24 mmol/L (22-29); Chloride 97 mmol/L (98-107); Glomerular Filtration Rate 61.3 mL/min (90-130); Glucose 123 mg/dL (65-115); Osmolality Calculated 282 mOsm/kg (285-295); Potassium 4.4 mmol/L (3.5-5.1); Sodium 133 mmol/L (136-145)
--- NOTE | 2022-06-06 07:45 | W.PM.OPSUD ---
Surgery/Procedure H&P Update DATE OF PROCEDURE: June 06, 2022 DATE H&P PERFORMED: 05/22/22 H&P UPDATE INFORMATION: I have reviewed H&P completed within last 30 days, I have examined patient prior to procedure and No changes to prior documentation PREOP DIAGNOSIS: Non healing left foot wound/ severe peripheral artery disease PRIMARY INDICATION FOR PROCEDURE: Non healing left foot wound/ severe peripheral artery disease PLANNED PROCEDURE: Operation Date: 06/06/22 07:00 Proposed Procedures p Periph Angiogram 44528,L98.499(Not Applicable) - John Toro M.D Possible percutaneous peripheral intervention PATIENT REASSESSED PRIOR TO SEDATION, WITH NO CHANGE NOTED: Yes PHYSICAL EXAM: alert, oriented x 3, clear to auscultation bilaterally and regular rate & rhythm AIRWAY EVAL/ANESTHESIA PLAN: normal airway, ASA III, Local Anesthesia, Risks, benefits & alternatives of sedation and/or procedure discussed and Patient agrees to continue as planned ADDITIONAL INFORMATION: Moderate sedation
[2022-06-06 08:05] LABS: Glucose Point of Care 123 mg/dL (70-110)
[2022-06-06] MEDS: clopidogrel 300 mg Tablet 600 MG PO (09:50)
[2022-06-06 11:35] LABS: Glucose Point of Care 132 mg/dL (70-110)
[2022-06-06] MEDS: sodium chloride 0.9% 1,000 ML 50 ML IV (11:41)
[2022-06-06 12:07] LABS: Partial Thromboplastin Time 54.2 SECONDS (23.9-36.7)
[2022-06-06] MEDS: clindamycin 150 mg Capsule 300 MG PO ×2 (14:00→21:23)
[2022-06-06] MEDS: fentaNYL 50 mcg/mL INJ 2mL IVP (14:26)
[2022-06-06] MEDS: metoprolol tartrate 25 mg Tablet PO (17:31)
[2022-06-06] MEDS: duloxetine 60 mg Capsule PO (17:31)
[2022-06-06] MEDS: gabapentin 400 mg Capsule PO ×2 (17:32→21:23)
[2022-06-06] MEDS: mupirocin oint 22 gm 1 APPLIC TOPICAL ×2 (17:32→21:24)
[2022-06-06 17:36] LABS: Glucose Point of Care 208 mg/dL (70-110)
[2022-06-06] MEDS: insulin lispro 100 unit/1 mL SUBCUT ×2 (17:44→21:23)
[2022-06-06] MEDS: amoxicillin-clav 500-125 mg Tablet 1 TAB PO (19:21)
[2022-06-06 21:14] LABS: Glucose Point of Care 228 mg/dL (70-110)
[2022-06-06] MEDS: atorvastatin 40 mg Tablet 80 MG PO (21:23)
[2022-06-06] MEDS: fenofibrate 145 mg Tablet PO (21:23)
[2022-06-06] MEDS: alum-mag-hydroxide-sime 30 mL UDC PO (22:02)
[2022-06-07 00:44] VITALS: BP 140/71; PULSE 82; RESP 23; TEMP 37.5; O2SAT 97
[2022-06-07 03:39] LABS: Basophils # 0.1 10^3/uL (0.0-0.1); Basophils % 0.5 %; Eosinophils # 0.6 10^3/uL (0.0-0.8); Hematocrit 34.6 % (42.0-52.0); Hemoglobin 10.9 g/dL (11.7-16.6); Lymphocytes # 2.1 10^3/uL (0.8-4.8); Lymphocytes % 13.6 %; Mean Corpuscular HGB Conc 31.5 g/dL (30.0-36.0); Mean Corpuscular Hemoglobin 27.8 pg (28.0-34.0); Mean Corpuscular Volume 88.3 fl (80-94); Mean Platelet Volume 9.5 fL (7.4-10.4); Monocytes # 1.5 10^3/uL (0.2-0.9); Monocytes % 9.6 %; Neutrophils # 11.12 10^3/uL (1.8-7.7); Neutrophils % 71.7 %; Nucleated Red Blood Cells % 0 %; Platelet Count 490 10^3/cmm (130-400); Red Blood Count 3.92 10^6/uL (4.1-5.3); White Blood Count 15.5 10^3/uL (4.0-10.0)
[2022-06-07 04:00] LABS: Blood Urea Nitrogen 20 mg/dL (8-23); Calcium 8.4 mg/dL (8.5-10.5); Carbon Dioxide 24 mmol/L (22-29); Chloride 102 mmol/L (98-107); Glomerular Filtration Rate 67.8 mL/min (90-130); Glucose 205 mg/dL (65-115); Osmolality Calculated 291 mOsm/kg (285-295); Sodium 136 mmol/L (136-145)
[2022-06-07 05:00] VITALS: BP 123/67; PULSE 82; RESP 20; TEMP 37.2; O2SAT 94
[2022-06-07] MEDS: clindamycin 150 mg Capsule 300 MG PO (05:33)
[2022-06-07 06:00] VITALS: PULSE 84
[2022-06-07 06:09] LABS: Glucose Point of Care 162 mg/dL (70-110)
[2022-06-07] MEDS: metoprolol tartrate 25 mg Tablet PO (08:35)
[2022-06-07] MEDS: duloxetine 60 mg Capsule PO (08:35)
[2022-06-07] MEDS: gabapentin 400 mg Capsule PO (08:35)
[2022-06-07] MEDS: clopidogrel 75 mg Tablet PO (08:35)
[2022-06-07] MEDS: insulin lispro 100 unit/1 mL SUBCUT (08:36)
[2022-06-07] MEDS: aspirin 81 mg EC Tablet PO (08:37)
[2022-06-07] MEDS: amoxicillin-clav 500-125 mg Tablet 1 TAB PO (08:43)
--- NOTE | 2022-06-07 08:46 | PM.DCS ---
Discharge Providers Date of Admission: 06/06/22 10:24 Date of Discharge: June 07, 2022 Attending Provider at Admission: John Toro M.D Attending Provider at Discharge: John Toro M.D Primary Care Provider: Juany Guajardo DO Reason for Visit Reason for Visit: Nonhealing left foot wound/ severe PAD Brief History: 61-year-old man who has a nonhealing left foot ulcer was referred for revascularization has has severe PAD. Plan for peripheral angiogram with possible percutaneous intervention Hospital Course Hospital Course Patient underwent successful revascularization of anterior tibial artery, TP trunk and posterior tibial artery with balloon angioplasty. Flow to the foot was significantly improved. Patient was kept overnight for observation and was discharged home in a stable condition. Physical Exam Narrative: GENERAL: Patient is alert, awake and oriented x3. [] NECK: No jugular vein distension. [] HEENT: No cyanosis. No icterus. No pallor. [] HEART: Regular S1 and S2. No murmur, rub or gallop. [] LUNGS: Clear to auscultate bilaterally. [] CENTRAL NERVOUS SYSTEM: Grossly nonfocal. [] EXTREMITIES: Anterior tibial artery is palpable Discharge Data Studies Completed and Pending Pending at discharge Category Date Time Status BRAILLE TYPIST request for service Routine Exams 06/06/22 06:00 Taken Laboratory Results WBC 15.5 10^3/uL (4.0-10.0) H 06/07/22 03:21 RBC 3.92 10^6/uL (4.1-5.3) L 06/07/22 03:21 Hgb 10.9 g/dL (11.7-16.6) L 06/07/22 03:21 Hct 34.6 % (42.0-52.0) L 06/07/22 03:21 MCV 88.3 fl (80-94) 06/07/22 03:21 MCH 27.8 pg (28.0-34.0) L 06/07/22 03:21 MCHC 31.5 g/dL (30.0-36.0) 06/07/22 03:21 RDW 13.0 % (12.1-15.1) 06/07/22 03:21 Plt Count 490 10^3/cmm (130-400) H 06/07/22 03:21 MPV 9.5 fL (7.4-10.4) 06/07/22 03:21 Neut % (Auto) 71.7 % 06/07/22 03:21 Lymph % (Auto) 13.6 % 06/07/22 03:21 Pratt % (Auto) 9.6 % 06/07/22 03:21 Eos % (Auto) 4.0 % 06/07/22 03:21 Baso % (Auto) 0.5 % 06/07/22 03:21 Neut # (Auto) 11.12 10^3/uL (1.8-7.7) H 06/07/22 03:21 Lymph # (Auto) 2.1 10^3/uL (0.8-4.8) 06/07/22 03:21 Pratt # (Auto) 1.5 10^3/uL (0.2-0.9) H 06/07/22 03:21 Eos # (Auto) 0.6 10^3/uL (0.0-0.8) 06/07/22 03:21 Baso # (Auto) 0.1 10^3/uL (0.0-0.1) 06/07/22 03:21 Nucleated RBC % (auto) 0 % 06/07/22 03:21 Nucleated RBCs # 0.0 /100WBC 06/07/22 03:21 APTT 29.0 SECONDS (23.9-36.7) 06/06/22 13:05 Sodium 136 mmol/L (136-145) 06/07/22 03:21 Potassium 5.0 mmol/L (3.5-5.1) 06/07/22 03:21 Chloride 102 mmol/L (98-107) 06/07/22 03:21 Carbon Dioxide 24 mmol/L (22-29) 06/07/22 03:21 Anion Gap 15.0 (5-19) 06/07/22 03:21 BUN 20 mg/dL (8-23) 06/07/22 03:21 Creatinine 1.1 mg/dL (0.7-1.2) 06/07/22 03:21 GFR Calculation 67.8 mL/min (90-130) L 06/07/22 03:21 Glucose 205 mg/dL (65-115) H 06/07/22 03:21 POC Glucose 162 mg/dL (70-110) H 06/07/22 06:01 Calculated Osmolality 291 mOsm/kg (285-295) 06/07/22 03:21 Calcium 8.4 mg/dL (8.5-10.5) L 06/07/22 03:21 Vitals Last Vital Signs Temp 98.9 F 06/07/22 05:00 Pulse 84 06/07/22 06:00 Resp 20 H 06/07/22 05:00 BP 123/67 06/07/22 05:00 Pulse Ox 94 06/07/22 05:00 O2 Del Method 06/07/22 05:00 Discharge Plan Discharge Patient Disposition: Home Health Service Condition: Stable Prescriptions: New clopidogrel 75 mg Tablet 75 mg PO DAILY Qty: 90 3RF aspirin 81 mg Tablet,Delayed Release (Dr/Ec) 81 mg PO DAILY Qty: 90 3RF Continued fenofibrate nanocrystallized 145 mg tablet 145 mg PO BEDTIME Qty: 90 1RF metoprolol tartrate 25 mg tablet 25 mg PO BID Qty: 180 3RF methocarbamol 500 mg tablet 500 mg PO BID PRN (Reason: pain) Qty: 60 5RF (DME) articulating AFO with accommodated orthotic and toe filler to left See Rx Instructions .Route .MEDSUPPLY Qty: 1 0RF Rx Instructions: As directed by DAVID&O mupirocin 2 % ointment 1 applic topical TID Qty: 15 0RF gabapentin 400 mg capsule See Rx Instructions .ROUTE .COMPLEX Qty: 270 1RF Dose Instruction: take 1 capsule BY MOUTH THREE TIMES DAILY Rx Instructions: take 1 capsule BY MOUTH THREE TIMES DAILY duloxetine 60 mg capsule,delayed release(DR/EC) See Rx Instructions .ROUTE .COMPLEX Qty: 60 2RF Dose Instruction: take 1 capsule BY MOUTH TWICE DAILY Rx Instructions: take 1 capsule BY MOUTH TWICE DAILY lidocaine HCl 2 % jelly 1 applic topical DAILY PRN (Reason: open wound) Qty: 30 0RF Dakin's Solution 0.125 % solution 1 applic topical DAILY Qty: 473 0RF clindamycin HCl 300 mg capsule 300 mg PO Q8H Qty: 30 0RF amoxicillin-pot clavulanate [Augmentin] 500-125 mg tablet 1 tab PO BID Qty: 20 0RF Victoza 3-John 0.6 mg/0.1 mL (18 mg/3 mL) pen injector 1.8 mg SUBCUT QAM Qty: 9 2RF atorvastatin 80 mg tablet 80 mg PO BEDTIME Qty: 90 1RF (DME) diabetic shoes See Rx Instructions .Route .MEDSUPPLY Qty: 1 0RF Rx Instructions: As directed (DME) cam boot See Rx Instructions .Route .MEDSUPPLY Qty: 1 0RF Rx Instructions: As directed insulin degludec [Tresiba FlexTouch U-100] 100 unit/mL (3 mL) insulin pen 36 unit SUBCUT DAILY Qty: 15 0RF hydrocodone-acetaminophen 5-325 mg tablet 1 tab PO BID PRN (Reason: pain) 7 Days Qty: 14 0RF multivitamin Tablet 1 tab PO DAILY beta carotene 25,000 unit Capsule 25,000 unit PO BID cholecalciferol (vitamin D3) [Vitamin D3] 25 mcg (1,000 unit) Capsule 25 mcg PO QAM acetaminophen [Tylenol Extra Strength] 500 mg Tablet 500 mg PO TID PRN (Reason: Pain) Qty: 0 0RF cyanocobalamin (vitamin B-12) [Vitamin B-12] 100 mcg Tablet 100 mcg PO DAILY coenzyme Q10 [CoQ-10] 100 mg Capsule 100 mg PO DAILY ascorbic acid (vitamin C) [Vitamin C] 1,000 mg Tablet 1 g PO QAM aspirin 81 mg Tablet,Delayed Release (Dr/Ec) 81 mg PO DAILY zinc 50 mg Capsule 50 mg PO DAILY insulin aspart U-100 [Novolog U-100 Insulin aspart] 100 unit/mL Solution See Protocol SUBCUT TID Protocol: Insulin Corrective High-Dose Regimen Condition: Fingerstick Blood Glucose Dose/Route: Insulin Units Condition: 141-180 mg/dl Dose/Route: 6 units/SQ Condition: 181-220 mg/dl Dose/Route: 8 units/SQ Condition: 221-260 mg/dl Dose/Route: 10 units/SQ Condition: 261-300 mg/dl Dose/Route: 12 units/SQ Condition: 301-350 mg/dl Dose/Route: 14 units/SQ Condition: 351-400 mg/dl Dose/Route: 16 units/SQ Condition: greater than 400 mg/dl Dose/Route: 18 units/SQ Rx Instructions: Sliding scale Held metformin 1,000 mg tablet See Rx Instructions .ROUTE .COMPLEX Qty: 180 1RF Hold Instructions: Resume on 06/09/22. Dose Instruction: TAKE 1 TABLET BY MOUTH TWICE DAILY Rx Instructions: TAKE 1 TABLET BY MOUTH TWICE DAILY Discharge Orders: Discharge Order (Routine); Ordered 06/07/22 Ordered By: John Toro Referrals: [facility] [Other] Chuyita Sotelo MD [Physician] - 2 months Nidia Chong FNP [Nurse Practitioner] - 06/19/22 8:45 am ([facility] [place] has scheduled a follow-up appointment with Nidia Chong on 06/19/2022 at 8:45. At that time an appointment with Dr. Sotelo will be made. If you have any questions, please call [phone].) Discharge Diet: Diabetic Discharge Activity: Increase activity as tolerated Patient Instructions: Aspirin/Codeine (By mouth), Clopidogrel (By mouth) (Plavix), Peripheral Vascular Stent Placement (DC), Peripheral Vascular Angioplasty (DC), Opioid Safety Discharge Attestations Time Spent in Discharge Care*: less than 30 min Status at Discharge: Cognitive status at discharge: cognitively intact, Behavioral status at discharge: cooperative, Quality Metrics Clinical Quality Measures [ No reported AMI, CVA or VTE this stay] Coding Level of Care Code Acute Code for Chg Fwkelsie
[2022-06-07 10:13] VITALS: BP 121/77; PULSE 87; RESP 17; O2SAT 94
--- NOTE | 2022-06-07 10:49 | PC.CHAP ---
Pastoral Care Encounter/Spiritual Assessment Type of Contact [] Declined baling machine tender visit [] Patient/Family/Request visit [] Outpatient visit [] Follow-up visit [] Physician referral [] Code/Alert [x] Routine visit [] Staff referral [] Actively dying [] Patient sleeping [] Family support [] [] Out of room [] Palliative care [] [x] Receiving care in room [] Pre-surgical visit [] Trauma [] Long length of stay [] ICU visit [] Other: Relational/Emotional Strength [x] Patient feels connected with others/family/visitors/staff [] Distress [] Loneliness/isolation [] Abandonment Spirituality of Patient [x] Person of [place] [] Attends Jain of their [place] [x] Believes in Prayer [] Reads Bible or Christian materials [] There are Spiritual issues to be addressed Echocardiographer Interventions [x] Prayer [] Active listening [] Non-anxious presence [] Spiritual/emotional support [] Crisis/trauma care [] Spiritual counseling [] Bereavement support [] Provided bereavement packet [x] Provided Bible/devotional materials [] Provided toy/stuffed animal, coloring book to patient or family member [] Provided Communion [] Anointing/[place] [] Salvation [x] Completed spiritual assessment [] Other: Impact on Illness or Injury [] Angry [] Fearful [] Anxious [] Often cries [] Exhaustion [] Unable to work [] Unable to attend yarsani [] Unable to walk/stand [] Unable to read [] Unable to drive [] Unable to eat/drink [] Unable to sleep [] Unable to be with family [] Patient intubated [] Other: Summary Time spent with patient 5min
== END 2022-06-07 10:52 | disposition home health service (06) ==
LOC: CSU 10:26
PROVIDERS: Admitting Provider Internal Medicine; PCP Family Medicine; Visit Provider Internal Medicine
DX: I73.9 Peripheral vascular disease, unspecified (principal); L97.529 Non-pressure chronic ulcer of other part of left foot with unspecified severity; I10 Essential (primary) hypertension; E78.5 Hyperlipidemia, unspecified; E11.9 Type 2 diabetes mellitus without complications; Z79.4 Long term (current) use of insulin; F17.210 Nicotine dependence, cigarettes, uncomplicated
CPT/HCPCS: 36415; 36416; 37228; 75625; 75716; 80048; 82962; 85025; 85347; 85730; 96361; 96365; 96372; 99152; 99153; C1725; C1769; C1887; C1894; G0378; J1644; J1815; J2250; J3010; J3490; J7030; Q0163; Q9967

== ENCOUNTER → 2022-06-10 11:19 | Outpatient (BNVA) | payer MEDICAID, SELFPAY | PROVIDERS: PCP Family Medicine; Visit Provider Thoracic Surgery (Cardiothoracic Vascular Surgery) | DX: I96 Gangrene, not elsewhere classified (principal); E11.621 Type 2 diabetes mellitus with foot ulcer; L89.892 Pressure ulcer of other site, stage 2 | CPT/HCPCS: 11043 ==

== ENCOUNTER → 2022-06-17 11:41 | Outpatient (BNVA) | payer MEDICAID, SELFPAY | PROVIDERS: PCP Family Medicine; Visit Provider Thoracic Surgery (Cardiothoracic Vascular Surgery) | DX: I96 Gangrene, not elsewhere classified (principal); E11.621 Type 2 diabetes mellitus with foot ulcer; L89.892 Pressure ulcer of other site, stage 2 | CPT/HCPCS: 11043 ==

== ENCOUNTER → 2022-06-19 08:59 | Outpatient (BNVA) | payer MEDICAID, SELFPAY | PROVIDERS: PCP Family Medicine; Visit Provider Nurse Practitioner Family | DX: I77.9 Disorder of arteries and arterioles, unspecified (principal); F17.210 Nicotine dependence, cigarettes, uncomplicated; Z79.82 Long term (current) use of aspirin | CPT/HCPCS: 36415; 80048; 99214 ==

== ENCOUNTER → 2022-06-24 11:44 | Outpatient (BNVA) | payer MEDICAID, SELFPAY | PROVIDERS: PCP Family Medicine; Visit Provider Thoracic Surgery (Cardiothoracic Vascular Surgery) | DX: I96 Gangrene, not elsewhere classified (principal); E11.621 Type 2 diabetes mellitus with foot ulcer; L89.892 Pressure ulcer of other site, stage 2 | CPT/HCPCS: 11042 ==

== ENCOUNTER → 2022-06-26 11:09 | Day surgery (SDC) | payer MEDICAID, SELFPAY ==
[2022-06-26 11:05] VITALS: BP 134/68; PULSE 107; RESP 18; TEMP 36.1; O2SAT 94
--- NOTE | 2022-06-26 11:07 | XR_ITS ---
WS: [id number] EXAMINATION: XR chest 1V portable [id number] REASON FOR EXAM: Post PICC placement COMPARISON: None available. ORDER DATE: 06/26/2022 11:55 AM TECHNIQUE: A single, portable frontal chest x-ray was obtained. X-RAY FINDINGS: The lungs are clear. Pleural spaces are clear. No pleural effusions or pneumothorax. Cardiomediastinal silhouette is normal. No evidence for pulmonary edema. Soft tissue and osseous structures are unremarkable. Right-sided PICC line terminating at the cavoatrial junction in a satisfactory location. XR/XR chest 1V portable [id number] IMPRESSION: Unremarkable frontal portable chest x-ray.
[2022-06-26 12:18] LABS: Basophils # 0.1 10^3/uL (0.0-0.1); Basophils % 0.7 %; Eosinophils # 0.2 10^3/uL (0.0-0.8); Eosinophils % 2.1 %; Hematocrit 32.7 % (42.0-52.0); Hemoglobin 10.3 g/dL (11.7-16.6); Lymphocytes # 1.3 10^3/uL (0.8-4.8); Lymphocytes % 11.2 %; Mean Corpuscular HGB Conc 31.5 g/dL (30.0-36.0); Mean Corpuscular Hemoglobin 27.6 pg (28.0-34.0); Mean Corpuscular Volume 87.7 fl (80-94); Mean Platelet Volume 9.4 fL (7.4-10.4); Monocytes # 0.9 10^3/uL (0.2-0.9); Monocytes % 7.8 %; Neutrophils # 9.07 10^3/uL (1.8-7.7); Neutrophils % 77.8 %; Nucleated Red Blood Cells % 0 %; Platelet Count 487 10^3/cmm (130-400); Red Blood Count 3.73 10^6/uL (4.1-5.3); Red Cell Distribution Width 13.4 % (12.1-15.1); White Blood Count 11.7 10^3/uL (4.0-10.0)
[2022-06-26] MEDS: ertapenem 1,000 MG in sodium chloride 0.9% (plus) 100 ML 200 MG IV (12:22)
[2022-06-26 12:36] LABS: Albumin Level 2.9 g/dL (3.5-5.2); Alkaline Phosphatase 60 U/L (40-130); Blood Urea Nitrogen 13 mg/dL (8-23); Calcium 8.8 mg/dL (8.5-10.5); Carbon Dioxide 26 mmol/L (22-29); Chloride 103 mmol/L (98-107); Globulin 4.2 g/dL (1.3-4.6); Glomerular Filtration Rate 75.7 mL/min (90-130); Glucose 177 mg/dL (65-115); Osmolality Calculated 290 mOsm/kg (285-295); Sodium 138 mmol/L (136-145); Total Bilirubin 0.2 mg/dL (0.15-1.2); Total Protein 7.1 g/dL (6.6-8.7)
[2022-06-26 12:38] LABS: Alanine Aminotransferase 11 U/L (0-41); Anion Gap 14.1 (5-19); Aspartate Amino Transferase 22 U/L (0-40); Potassium 5.1 mmol/L (3.5-5.1)
--- NOTE | 2022-06-26 13:00 | PC.NURSE ---
Pt to GI infusions for PICC line placement and first dose of Ertapenem. Single lumen PICC placed to right basilic vein without difficulty. Mid-arm circumference noted at 29 cm measured 10 cm from right AC. Trimmed PICC length 43 cm with 1 cm external length noted. Baseline labs CBC, CMP, and CRP drawn. Chest xray confirms PICC in correct placement at cavoatrial junction. Chest xray report, lab results, and PICC report faxed to [facility] and [facility]. Report called to both places as well. Wound Care nurse, Makayla, gavino. Pt received Ertapenem 1 gm at 1200. No reaction noted.
== END ==
PROVIDERS: PCP Family Medicine; Visit Provider Thoracic Surgery (Cardiothoracic Vascular Surgery)
DX: M86.172 Other acute osteomyelitis, left ankle and foot (principal)
CPT/HCPCS: 36569; 36592; 71045; 80053; 85025; 86140; 96365; J1335

== ENCOUNTER 2022-06-28 12:55 | Outpatient (RCR) | payer MEDICAID, SELFPAY ==
[2022-06-28 13:05] VITALS: BP 113/60; PULSE 108; RESP 18; TEMP 36.3; O2SAT 94
--- NOTE | 2022-06-28 13:15 | PC.NURSE ---
Pt to GI infusions for initial PICC dressing change. Site to right upper arm clear. No bleeding or hematoma noted. Dressing changed without difficulty. Pt tolerated well.
== END 2022-07-05 23:59 | disposition home or self-care (01) ==
LOC: GILAB 12:55
PROVIDERS: PCP Family Medicine; Visit Provider Thoracic Surgery (Cardiothoracic Vascular Surgery)
DX: M86.172 Other acute osteomyelitis, left ankle and foot (principal)

== ENCOUNTER → 2022-07-03 10:14 | Outpatient (BNVA) | payer MEDICAID, SELFPAY | PROVIDERS: PCP Family Medicine; Visit Provider Thoracic Surgery (Cardiothoracic Vascular Surgery) | DX: I96 Gangrene, not elsewhere classified (principal); E11.621 Type 2 diabetes mellitus with foot ulcer; L97.422 Non-pressure chronic ulcer of left heel and midfoot with fat layer exposed | CPT/HCPCS: 11042 ==

== ENCOUNTER → 2022-07-04 09:53 | Outpatient (BNVA) | payer MEDICAID, SELFPAY | PROVIDERS: PCP Family Medicine; Visit Provider Student in an Organized Health Care Education/Training Program | DX: E11.621 Type 2 diabetes mellitus with foot ulcer (principal); L97.529 Non-pressure chronic ulcer of other part of left foot with unspecified severity; M86.9 Osteomyelitis, unspecified; M86.172 Other acute osteomyelitis, left ankle and foot | CPT/HCPCS: 99214 ==

== ENCOUNTER → 2022-07-08 15:30 | Outpatient (BNVA) | payer MEDICAID, SELFPAY | PROVIDERS: PCP Family Medicine; Visit Provider Thoracic Surgery (Cardiothoracic Vascular Surgery) | DX: I96 Gangrene, not elsewhere classified (principal); E11.621 Type 2 diabetes mellitus with foot ulcer; L89.892 Pressure ulcer of other site, stage 2 | CPT/HCPCS: 11042 ==

== ENCOUNTER → 2022-07-15 14:46 | Outpatient (BNVA) | payer MEDICAID, SELFPAY | PROVIDERS: PCP Family Medicine; Visit Provider Thoracic Surgery (Cardiothoracic Vascular Surgery) | DX: E11.621 Type 2 diabetes mellitus with foot ulcer (principal); L97.522 Non-pressure chronic ulcer of other part of left foot with fat layer exposed; M86.9 Osteomyelitis, unspecified | CPT/HCPCS: 11042 ==

== ENCOUNTER 2022-07-18 08:47 | Outpatient (CLI) | payer MEDICAID, SELFPAY ==
--- NOTE | 2022-07-18 09:03 | XR_ITS ---
WS: [id number] EXAMINATION: XR chest 2V* [id number] REASON FOR EXAM: clearance for hyperbaric oxygen therarpy;r/o bullous COMPARISON: 06/26/2022 ORDER DATE: 07/18/2022 9:10 AM FINDINGS:The lungs are clear. Pleural spaces are clear. No pleural effusions or pneumothorax. Cardiomediastinal silhouette is normal. No evidence for pulmonary edema. Soft tissue and osseous structures are unremarkable. Right-sided PICC line terminating at the cavoatrial junction in a satisfactory location. XR/XR chest 2V* [id number] IMPRESSION: Unremarkable and unchanged
[2022-07-18 10:24] LABS: Basophils # 0.1 10^3/uL (0.0-0.1); Basophils % 1.1 %; Eosinophils # 0.5 10^3/uL (0.0-0.8); Eosinophils % 4.6 %; Hematocrit 34.1 % (42.0-52.0); Hemoglobin 10.7 g/dL (11.7-16.6); Lymphocytes # 1.9 10^3/uL (0.8-4.8); Lymphocytes % 18.4 %; Mean Corpuscular HGB Conc 31.4 g/dL (30.0-36.0); Mean Corpuscular Hemoglobin 26.9 pg (28.0-34.0); Mean Corpuscular Volume 85.7 fl (80-94); Mean Platelet Volume 10.2 fL (7.4-10.4); Monocytes % 9.6 %; Neutrophils # 6.62 10^3/uL (1.8-7.7); Neutrophils % 65.8 %; Nucleated Red Blood Cells % 0 %; Platelet Count 370 10^3/cmm (130-400); Red Blood Count 3.98 10^6/uL (4.1-5.3); Red Cell Distribution Width 14.2 % (12.1-15.1); White Blood Count 10.1 10^3/uL (4.0-10.0)
--- NOTE | 2022-07-18 10:26 | ECG_ITS ---
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 Measurements Intervals [place] Rate: 93 P: 56 IA: 149 QRS: 55 QRSD: 93 T: 79 QT: 341 QTc: 425 Interpretive Statements SINUS RHYTHM Compared to ECG 04/09/2021 10:33:19 No significant changes Electronically Signed On 07-18-2022 21:11:46 CDT by Chuyita Sotelo M.D. [email or web address]
[2022-07-18 10:28] LABS: Erythrocyte Sedimentation Rate 62 mm/hr (0-10)
[2022-07-18 10:45] LABS: Estmated Average Glucose 203; Hemoglobin A1C 8.7 % (4.0-6.0)
[2022-07-18 10:56] LABS: Alanine Aminotransferase 17 U/L (0-41); Albumin Level 3.3 g/dL (3.5-5.2); Alkaline Phosphatase 107 U/L (40-130); C Reactive Protein 9.1 mg/L (0.0-4.9); Globulin 3.9 g/dL (1.3-4.6); Prealbumin 20.6 mg/dL (20-40); Total Bilirubin 0.2 mg/dL (0.15-1.2); Total Protein 7.2 g/dL (6.6-8.7)
[2022-07-18 11:05] LABS: Aspartate Amino Transferase 24 U/L (0-40)
== END 2022-07-18 08:48 | disposition home or self-care (01) ==
LOC: RAD 08:49
PROVIDERS: PCP Family Medicine; Visit Provider Thoracic Surgery (Cardiothoracic Vascular Surgery)
DX: Z13.83 Encounter for screening for respiratory disorder NEC (principal); M86.172 Other acute osteomyelitis, left ankle and foot; E11.621 Type 2 diabetes mellitus with foot ulcer; L97.529 Non-pressure chronic ulcer of other part of left foot with unspecified severity
CPT/HCPCS: 36415; 71046; 80076; 82565; 83036; 84134; 85025; 85651; 86140; 93005

== ENCOUNTER 2022-07-20 14:07 | Emergency (ER) | payer MEDICAID, SELFPAY ==
[2022-07-20 14:33] VITALS: BP 122/68; PULSE 91; TEMP 37.1; O2SAT 98; BMI 29.5
--- NOTE | 2022-07-20 15:00 | W.ED.GENADLT ---
HPI - General Adult General: Chief complaint: General Medical Stated complaint: picc line bleeding Time Seen by Provider: 07/20/22 14:35 History of Present Illness: Patient comes in with PICC line concerns. States that he wrapped his PICC line and duct tape so he could take a shower, then when he got out of the shower he went to take the dressing off and decided to just cut the tape off and accidentally cut the PICC line. Associated symptoms: Deny chest pain, dyspnea, nausea, palpitations or vomiting Review of Systems Const: Denies: fever(s) Card: Denies: chest pain or palpitations Resp: Denies: dyspnea or productive cough GI: Denies: abdominal pain, nausea or vomiting PFSH ED PFSH: Medical History Dry gangrene Dyslipidemia Essential hypertension HTN (hypertension), benign Hypotestosteronemia in male Low back pain radiating down leg Major depressive disorder Tobacco dependency Uncontrolled type 2 diabetes mellitus, with long-term current use of insulin Surgical History History of amputation of toe Right second and left second and third History of eye surgery History of incision and drainage left foot History of total left hip arthroplasty Hx of cataract extraction Status post vasectomy Family History Father CAD (coronary artery disease) Diabetes Mother Cancer Chronic kidney disease (CKD) Diabetes Lung disease Grandmother Dementia Stroke Family/Other Suicide Other Hypertension Denies family history of Clotting disorder Anesthesia complication Bleeding disorder Social History Smoking and tobacco status: current every day smoker cigarettes Packs smoked per day: 1 Alcohol intake: former Physical Exam Const: COMMON NORMALS: no acute distress and healthy appearing HENMT: COMMON NORMALS: normocephalic and atraumatic HEAD & SCALP: normocephalic and atraumatic Neck/C-Spine: COMMON NORMALS: full ROM Resp: COMMON NORMALS: normal respiratory effort, No retractions and No use of accessory muscles Extremity: COMMON NORMALS: full ROM NARRATIVE EXTREMITY EXAM: PICC line in the left upper extremity Course Vital Signs: Vital signs: Vital Signs Temperature 98.8 F 07/20/22 16:43 Pulse Rate 91 07/20/22 16:43 Blood Pressure 122/68 07/20/22 16:43 Pulse Oximetry 98 07/20/22 16:43 Oxygen Delivery Me thod Room Air 07/20/22 14:33 MDM - General Adult Medical Decision Making Patient comes in with PICC line concerns. States that he wrapped his PICC line and duct tape so he could take a shower, then when he got out of the shower he went to take the dressing off and decided to just cut the tape off and accidentally cut the PICC line. On physical exam he has a PICC line in his right upper arm we clamped it with a Mary clamp. We will have our PICC team come down and replace the PICC line. Patient tolerated the procedure without complication. Will discharge home at this time with precautions to return for worsening or changing symptoms. Lab Data Radiology Impressions Chest X-Ray 07/20/22 15:23 IMPRESSION: 1. Right-sided PICC line with tip at the atrial caval junction. 2. Cardiomegaly and mild pulmonary vascular congestion. Discharge Plan Discharge Patient Disposition: Home Clinical Impression: Bleeding from PICC line Condition: Stable Prescriptions: No Action fenofibrate nanocrystallized 145 mg tablet 145 mg PO BEDTIME Qty: 90 1RF metoprolol tartrate 25 mg tablet 25 mg PO BID Qty: 180 3RF methocarbamol 500 mg tablet 500 mg PO BID PRN (Reason: pain) Qty: 60 5RF (DME) articulating AFO with accommodated orthotic and toe filler to left See Rx Instructions .Route .MEDSUPPLY Qty: 1 0RF Rx Instructions: As directed by DAVID&O mupirocin 2 % ointment 1 applic topical TID Qty: 15 0RF gabapentin 400 mg capsule See Rx Instructions .ROUTE .COMPLEX Qty: 270 1RF Dose Instruction: take 1 capsule BY MOUTH THREE TIMES DAILY Rx Instructions: take 1 capsule BY MOUTH THREE TIMES DAILY duloxetine 60 mg capsule,delayed release(DR/EC) See Rx Instructions .ROUTE .COMPLEX Qty: 60 2RF Dose Instruction: take 1 capsule BY MOUTH TWICE DAILY Rx Instructions: take 1 capsule BY MOUTH TWICE DAILY lidocaine HCl 2 % jelly 1 applic topical DAILY PRN (Reason: open wound) Qty: 30 0RF Dakin's Solution 0.125 % solution 1 applic topical DAILY Qty: 473 0RF meropenem 1 gram recon soln 2 g IV TID Victoza 3-John 0.6 mg/0.1 mL (18 mg/3 mL) pen injector 1.8 mg SUBCUT QAM Qty: 9 2RF metformin 1,000 mg tablet See Rx Instructions .ROUTE .COMPLEX Qty: 180 1RF Hold Instructions: Resume on 06/09/22. Dose Instruction: TAKE 1 TABLET BY MOUTH TWICE DAILY Rx Instructions: TAKE 1 TABLET BY MOUTH TWICE DAILY atorvastatin 80 mg tablet 80 mg PO BEDTIME Qty: 90 1RF (DME) diabetic shoes See Rx Instructions .Route .MEDSUPPLY Qty: 1 0RF Rx Instructions: As directed (DME) cam boot See Rx Instructions .Route .MEDSUPPLY Qty: 1 0RF Rx Instructions: As directed insulin degludec [Tresiba FlexTouch U-100] 100 unit/mL (3 mL) insulin pen 36 unit SUBCUT DAILY Qty: 15 0RF hydrocodone-acetaminophen 5-325 mg tablet 1 tab PO BID PRN (Reason: pain) 7 Days Qty: 14 0RF (DME) OneTouch Ultra Test Strip See Rx Instructions .Route Qty: 300 3RF Rx Instructions: Use with glucometer TID multivitamin Tablet 1 tab PO DAILY beta carotene 25,000 unit Capsule 25,000 unit PO BID cholecalciferol (vitamin D3) [Vitamin D3] 25 mcg (1,000 unit) Capsule 25 mcg PO QAM acetaminophen [Tylenol Extra Strength] 500 mg Tablet 500 mg PO TID PRN (Reason: Pain) Qty: 0 0RF cyanocobalamin (vitamin B-12) [Vitamin B-12] 100 mcg Tablet 100 mcg PO DAILY coenzyme Q10 [CoQ-10] 100 mg Capsule 100 mg PO DAILY ascorbic acid (vitamin C) [Vitamin C] 1,000 mg Tablet 1 g PO QAM aspirin 81 mg Tablet,Delayed Release (Dr/Ec) 81 mg PO DAILY zinc 50 mg Capsule 50 mg PO DAILY insulin aspart U-100 [Novolog U-100 Insulin aspart] 100 unit/mL Solution See Protocol SUBCUT TID Protocol: Insulin Corrective High-Dose Regimen Condition: Fingerstick Blood Glucose Dose/Route: Insulin Units Condition: 141-180 mg/dl Dose/Route: 6 units/SQ Condition: 181-220 mg/dl Dose/Route: 8 units/SQ Condition: 221-260 mg/dl Dose/Route: 10 units/SQ Condition: 261-300 mg/dl Dose/Route: 12 units/SQ Condition: 301-350 mg/dl Dose/Route: 14 units/SQ Condition: 351-400 mg/dl Dose/Route: 16 units/SQ Condition: greater than 400 mg/dl Dose/Route: 18 units/SQ Rx Instructions: Sliding scale clopidogrel 75 mg Tablet 75 mg PO DAILY Qty: 90 3RF Discharge Orders: Discharge ED (Routine); Ordered 07/20/22 Ordered By: Seng Javed Referrals: Juany Guajardo DO [Primary Care Provider] - Patient Instructions: How to Care for Your PICC (Peripherally Inserted Central Catheter) (ED) Coding Level of Care Code ED Senior Ruby Developer for Osmar Smith
--- NOTE | 2022-07-20 15:23 | XRR_ITS ---
PROCEDURE INFORMATION: Exam: XR Chest Exam date and time: 07/20/2022 3:25 PM Age: 61 years old Clinical indication: Device placement; Picc; Additional info: Picc line insertion TECHNIQUE: Imaging protocol: Radiologic exam of the chest. Views: 1 view. COMPARISON: CR XR chest 2V* [id number] 07/18/2022 9:06 AM FINDINGS: Tubes, catheters and devices: Right-sided PICC line with tip at the atrial caval junction. Lungs: See Heart/Mediastinum finding. Pleural spaces: Unremarkable. No pleural effusion. No pneumothorax. Heart/Mediastinum: Cardiomegaly and mild pulmonary vascular congestion. Bones/joints: Unremarkable. XR/XR chest 1V portable [id number] IMPRESSION: 1. Right-sided PICC line with tip at the atrial caval junction. 2. Cardiomegaly and mild pulmonary vascular congestion.
--- NOTE | 2022-07-20 16:06 | PC.NURSE ---
PICC RIGHT arm in and ready for use.
[2022-07-20 16:43] VITALS: BP 122/68; PULSE 91; TEMP 37.1; O2SAT 98
== END 2022-07-20 16:50 | disposition home or self-care (01) ==
PROVIDERS: Emergency Provider Emergency Medicine; PCP Family Medicine
DX: T82.838A Hemorrhage due to vascular prosthetic devices, implants and grafts, initial encounter (principal); Y71.8 Miscellaneous cardiovascular devices associated with adverse incidents, not elsewhere classified; Z79.82 Long term (current) use of aspirin; Z79.02 Long term (current) use of antithrombotics/antiplatelets; Z79.84 Long term (current) use of oral hypoglycemic drugs; Z79.4 Long term (current) use of insulin; F17.210 Nicotine dependence, cigarettes, uncomplicated; E78.5 Hyperlipidemia, unspecified; I10 Essential (primary) hypertension; E11.9 Type 2 diabetes mellitus without complications
CPT/HCPCS: 36569; 71045; 99283

== ENCOUNTER → 2022-07-22 15:58 | Outpatient (BNVA) | payer MEDICAID, SELFPAY | PROVIDERS: PCP Family Medicine; Visit Provider Thoracic Surgery (Cardiothoracic Vascular Surgery) | DX: I96 Gangrene, not elsewhere classified (principal); E11.621 Type 2 diabetes mellitus with foot ulcer; L89.892 Pressure ulcer of other site, stage 2 | CPT/HCPCS: 11042 ==

== ENCOUNTER → 2022-07-24 08:40 | Outpatient (BNVA) | payer MEDICAID, SELFPAY | PROVIDERS: PCP Family Medicine; Visit Provider Thoracic Surgery (Cardiothoracic Vascular Surgery) | DX: E11.621 Type 2 diabetes mellitus with foot ulcer (principal); L97.426 Non-pressure chronic ulcer of left heel and midfoot with bone involvement without evidence of necrosis | CPT/HCPCS: G0277 ==

== ENCOUNTER → 2022-07-26 08:07 | Outpatient (BNVA) | payer MEDICAID, SELFPAY | PROVIDERS: PCP Family Medicine; Visit Provider Thoracic Surgery (Cardiothoracic Vascular Surgery) | DX: E11.621 Type 2 diabetes mellitus with foot ulcer (principal); L97.426 Non-pressure chronic ulcer of left heel and midfoot with bone involvement without evidence of necrosis | CPT/HCPCS: G0277 ==

== ENCOUNTER → 2022-07-29 10:48 | Outpatient (BNVA) | payer MEDICAID, SELFPAY | PROVIDERS: PCP Family Medicine; Visit Provider Thoracic Surgery (Cardiothoracic Vascular Surgery) | DX: E11.621 Type 2 diabetes mellitus with foot ulcer (principal); L97.426 Non-pressure chronic ulcer of left heel and midfoot with bone involvement without evidence of necrosis | CPT/HCPCS: 11042; G0277 ==

== ENCOUNTER → 2022-07-30 08:04 | Outpatient (BNVA) | payer MEDICAID, SELFPAY | PROVIDERS: PCP Family Medicine; Visit Provider Nurse Practitioner Family | DX: E11.621 Type 2 diabetes mellitus with foot ulcer (principal); L97.426 Non-pressure chronic ulcer of left heel and midfoot with bone involvement without evidence of necrosis | CPT/HCPCS: G0277 ==

== ENCOUNTER → 2022-07-31 07:53 | Outpatient (BNVA) | payer MEDICAID, SELFPAY | PROVIDERS: PCP Family Medicine; Visit Provider Thoracic Surgery (Cardiothoracic Vascular Surgery) | DX: E11.621 Type 2 diabetes mellitus with foot ulcer (principal); L97.426 Non-pressure chronic ulcer of left heel and midfoot with bone involvement without evidence of necrosis | CPT/HCPCS: G0277 ==

== ENCOUNTER 2022-08-01 12:39 | Outpatient (RCR) | payer MEDICAID, SELFPAY ==
[2022-07-11 14:26] LABS: Basophils # 0.1 10^3/uL (0.0-0.1); Basophils % 0.8 %; Eosinophils # 0.3 10^3/uL (0.0-0.8); Eosinophils % 2.9 %; Hemoglobin 10.4 g/dL (11.7-16.6); Lymphocytes % 19.2 %; Mean Corpuscular HGB Conc 32.5 g/dL (30.0-36.0); Mean Corpuscular Hemoglobin 27.2 pg (28.0-34.0); Mean Corpuscular Volume 83.8 fl (80-94); Mean Platelet Volume 10.5 fL (7.4-10.4); Monocytes # 0.9 10^3/uL (0.2-0.9); Monocytes % 8.6 %; Neutrophils # 7.17 10^3/uL (1.8-7.7); Neutrophils % 67.9 %; Nucleated Red Blood Cells % 0 %; Platelet Count 397 10^3/cmm (130-400); Red Blood Count 3.82 10^6/uL (4.1-5.3); Red Cell Distribution Width 13.9 % (12.1-15.1); White Blood Count 10.6 10^3/uL (4.0-10.0)
[2022-07-11 14:45] LABS: Alanine Aminotransferase 14 U/L (0-41); Alkaline Phosphatase 97 U/L (40-130); C Reactive Protein 6.9 mg/L (0.0-4.9); Globulin 3.8 g/dL (1.3-4.6); Total Bilirubin 0.2 mg/dL (0.15-1.2); Total Protein 6.8 g/dL (6.6-8.7)
[2022-07-11 15:14] LABS: Aspartate Amino Transferase 19 U/L (0-40)
[2022-07-25 13:47] LABS: Basophils # 0.1 10^3/uL (0.0-0.1); Basophils % 0.7 %; Eosinophils # 0.3 10^3/uL (0.0-0.8); Eosinophils % 2.6 %; Hematocrit 32.2 % (42.0-52.0); Hemoglobin 10.9 g/dL (11.7-16.6); Lymphocytes % 16.8 %; Mean Corpuscular HGB Conc 33.9 g/dL (30.0-36.0); Mean Corpuscular Hemoglobin 27.8 pg (28.0-34.0); Mean Corpuscular Volume 82.1 fl (80-94); Mean Platelet Volume 10.9 fL (7.4-10.4); Monocytes # 1.3 10^3/uL (0.2-0.9); Monocytes % 11.1 %; Neutrophils # 8.29 10^3/uL (1.8-7.7); Neutrophils % 68.5 %; Nucleated Red Blood Cells % 0 %; Platelet Count 350 10^3/cmm (130-400); Red Blood Count 3.92 10^6/uL (4.1-5.3); Red Cell Distribution Width 14.5 % (12.1-15.1); White Blood Count 12.1 10^3/uL (4.0-10.0)
[2022-07-25 14:12] LABS: Alanine Aminotransferase 11 U/L (0-41); Albumin Level 2.4 g/dL (3.5-5.2); Alkaline Phosphatase 89 U/L (40-130); C Reactive Protein 29.9 mg/L (0.0-4.9); Globulin 3.4 g/dL (1.3-4.6); Glomerular Filtration Rate 136.5 mL/min (90-130); Total Bilirubin 0.2 mg/dL (0.15-1.2); Total Protein 5.8 g/dL (6.6-8.7)
[2022-07-25 14:16] LABS: Aspartate Amino Transferase 17 U/L (0-40)
[2022-08-01 13:07] LABS: Basophils # 0.1 10^3/uL (0.0-0.1); Eosinophils # 0.4 10^3/uL (0.0-0.8); Eosinophils % 3.6 %; Hematocrit 31.5 % (42.0-52.0); Hemoglobin 10.2 g/dL (11.7-16.6); Lymphocytes # 2.2 10^3/uL (0.8-4.8); Lymphocytes % 19.6 %; Mean Corpuscular HGB Conc 32.4 g/dL (30.0-36.0); Mean Corpuscular Hemoglobin 27.3 pg (28.0-34.0); Mean Corpuscular Volume 84.2 fl (80-94); Mean Platelet Volume 10.5 fL (7.4-10.4); Monocytes # 1.1 10^3/uL (0.2-0.9); Neutrophils # 7.34 10^3/uL (1.8-7.7); Neutrophils % 65.5 %; Nucleated Red Blood Cells % 0 %; Platelet Count 374 10^3/cmm (130-400); Red Blood Count 3.74 10^6/uL (4.1-5.3); White Blood Count 11.2 10^3/uL (4.0-10.0)
[2022-08-01 14:51] LABS: Alanine Aminotransferase 10 U/L (0-41); Albumin Level 3.3 g/dL (3.5-5.2); Alkaline Phosphatase 98 U/L (40-130); Aspartate Amino Transferase 14 U/L (0-40); C Reactive Protein 11.6 mg/L (0.0-4.9); Globulin 3.7 g/dL (1.3-4.6); Glomerular Filtration Rate 67.8 mL/min (90-130); Total Bilirubin 0.2 mg/dL (0.15-1.2)
== END 2022-08-04 23:59 | disposition home or self-care (01) ==
LOC: LAB 12:39
PROVIDERS: PCP Family Medicine; Visit Provider Student in an Organized Health Care Education/Training Program
DX: E11.621 Type 2 diabetes mellitus with foot ulcer (principal); L97.426 Non-pressure chronic ulcer of left heel and midfoot with bone involvement without evidence of necrosis; M86.9 Osteomyelitis, unspecified
CPT/HCPCS: 80076; 82565; 85025; 86140; G0277

== ENCOUNTER → 2022-08-02 07:59 | Outpatient (BNVA) | payer MEDICAID, SELFPAY | PROVIDERS: PCP Family Medicine; Visit Provider Thoracic Surgery (Cardiothoracic Vascular Surgery) | DX: E11.621 Type 2 diabetes mellitus with foot ulcer (principal); L97.426 Non-pressure chronic ulcer of left heel and midfoot with bone involvement without evidence of necrosis | CPT/HCPCS: G0277 ==

== ENCOUNTER → 2022-08-05 10:49 | Outpatient (BNVA) | payer MEDICAID, SELFPAY | PROVIDERS: PCP Family Medicine; Visit Provider Thoracic Surgery (Cardiothoracic Vascular Surgery) | DX: I96 Gangrene, not elsewhere classified (principal); E11.621 Type 2 diabetes mellitus with foot ulcer; L89.892 Pressure ulcer of other site, stage 2 | CPT/HCPCS: 11042; A6237; A6250 ==

== ENCOUNTER → 2022-08-06 07:56 | Outpatient (BNVA) | payer MEDICAID, SELFPAY | PROVIDERS: PCP Family Medicine; Visit Provider Nurse Practitioner Family | DX: E11.621 Type 2 diabetes mellitus with foot ulcer (principal); L97.425 Non-pressure chronic ulcer of left heel and midfoot with muscle involvement without evidence of necrosis | CPT/HCPCS: G0277 ==

== ENCOUNTER → 2022-08-07 07:56 | Outpatient (BNVA) | payer MEDICAID, SELFPAY | PROVIDERS: PCP Family Medicine; Visit Provider Thoracic Surgery (Cardiothoracic Vascular Surgery) | DX: E11.621 Type 2 diabetes mellitus with foot ulcer (principal); L97.425 Non-pressure chronic ulcer of left heel and midfoot with muscle involvement without evidence of necrosis | CPT/HCPCS: G0277 ==

== ENCOUNTER 2022-08-08 14:03 | Outpatient (CLI) | payer MEDICAID, SELFPAY ==
[2022-08-08 14:51] LABS: Basophils # 0.1 10^3/uL (0.0-0.1); Eosinophils # 0.3 10^3/uL (0.0-0.8); Eosinophils % 2.7 %; Hemoglobin 10.7 g/dL (11.7-16.6); Lymphocytes # 2.1 10^3/uL (0.8-4.8); Lymphocytes % 17.9 %; Mean Corpuscular HGB Conc 32.4 g/dL (30.0-36.0); Mean Corpuscular Hemoglobin 27.2 pg (28.0-34.0); Mean Corpuscular Volume 83.8 fl (80-94); Mean Platelet Volume 10.7 fL (7.4-10.4); Monocytes # 1.1 10^3/uL (0.2-0.9); Monocytes % 9.6 %; Neutrophils # 7.95 10^3/uL (1.8-7.7); Neutrophils % 68.4 %; Nucleated Red Blood Cells % 0 %; Platelet Count 417 10^3/cmm (130-400); Red Blood Count 3.94 10^6/uL (4.1-5.3); Red Cell Distribution Width 14.3 % (12.1-15.1); White Blood Count 11.6 10^3/uL (4.0-10.0)
[2022-08-08 15:25] LABS: Alanine Aminotransferase 19 U/L (0-41); Albumin Level 3.4 g/dL (3.5-5.2); Alkaline Phosphatase 98 U/L (40-130); Creatine Phosphokinase 106 U/L (39-308); Globulin 3.7 g/dL (1.3-4.6); Total Bilirubin 0.2 mg/dL (0.15-1.2); Total Protein 7.1 g/dL (6.6-8.7)
[2022-08-08 15:32] LABS: Aspartate Amino Transferase 21 U/L (0-40)
== END 2022-08-08 14:04 | disposition home or self-care (01) ==
LOC: LAB 14:10
PROVIDERS: PCP Family Medicine; Visit Provider Student in an Organized Health Care Education/Training Program
DX: Z01.89 Encounter for other specified special examinations (principal)
CPT/HCPCS: 80076; 82550; 82565; 85025; G0277

== ENCOUNTER → 2022-08-09 08:14 | Outpatient (BNVA) | payer MEDICAID, SELFPAY | PROVIDERS: PCP Family Medicine; Visit Provider Nurse Practitioner Family | DX: E11.621 Type 2 diabetes mellitus with foot ulcer (principal); L97.425 Non-pressure chronic ulcer of left heel and midfoot with muscle involvement without evidence of necrosis | CPT/HCPCS: G0277 ==

== ENCOUNTER → 2022-08-12 13:14 | Day surgery (SDC) | payer MEDICAID, SELFPAY ==
[2022-08-12 13:00] VITALS: BP 130/70; PULSE 82; RESP 18; TEMP 36.3; O2SAT 98
== END ==
PROVIDERS: PCP Family Medicine; Visit Provider Thoracic Surgery (Cardiothoracic Vascular Surgery)
DX: E11.621 Type 2 diabetes mellitus with foot ulcer (principal); L97.425 Non-pressure chronic ulcer of left heel and midfoot with muscle involvement without evidence of necrosis; M86.8X7 Other osteomyelitis, ankle and foot; F17.200 Nicotine dependence, unspecified, uncomplicated; I96 Gangrene, not elsewhere classified; L89.893 Pressure ulcer of other site, stage 3
CPT/HCPCS: 11042; 97605; A6237; A6250; G0277

== ENCOUNTER → 2022-08-13 07:59 | Outpatient (BNVA) | payer MEDICAID, SELFPAY | PROVIDERS: PCP Family Medicine; Visit Provider Nurse Practitioner Family | DX: E11.621 Type 2 diabetes mellitus with foot ulcer (principal); L97.425 Non-pressure chronic ulcer of left heel and midfoot with muscle involvement without evidence of necrosis; M86.172 Other acute osteomyelitis, left ankle and foot | CPT/HCPCS: G0277 ==

== ENCOUNTER → 2022-08-14 08:29 | Outpatient (BNVA) | payer MEDICAID, SELFPAY | PROVIDERS: PCP Family Medicine; Visit Provider Thoracic Surgery (Cardiothoracic Vascular Surgery) | DX: E11.621 Type 2 diabetes mellitus with foot ulcer (principal); L97.428 Non-pressure chronic ulcer of left heel and midfoot with other specified severity; M86.172 Other acute osteomyelitis, left ankle and foot | CPT/HCPCS: G0277 ==

== ENCOUNTER → 2022-08-15 13:39 | Outpatient (BNVA) | payer MEDICAID, SELFPAY | PROVIDERS: PCP Family Medicine; Visit Provider Student in an Organized Health Care Education/Training Program | DX: M86.172 Other acute osteomyelitis, left ankle and foot (principal) | CPT/HCPCS: 99214; G0277 ==

== ENCOUNTER → 2022-08-16 07:59 | Outpatient (BNVA) | payer MEDICAID, SELFPAY | PROVIDERS: PCP Family Medicine; Visit Provider Thoracic Surgery (Cardiothoracic Vascular Surgery) | DX: E11.621 Type 2 diabetes mellitus with foot ulcer (principal); L97.425 Non-pressure chronic ulcer of left heel and midfoot with muscle involvement without evidence of necrosis; I96 Gangrene, not elsewhere classified | CPT/HCPCS: 99212 ==

== ENCOUNTER → 2022-08-19 10:36 | Outpatient (BNVA) | payer MEDICAID, SELFPAY | PROVIDERS: PCP Family Medicine; Visit Provider Thoracic Surgery (Cardiothoracic Vascular Surgery) | DX: E11.621 Type 2 diabetes mellitus with foot ulcer (principal); I96 Gangrene, not elsewhere classified; L97.425 Non-pressure chronic ulcer of left heel and midfoot with muscle involvement without evidence of necrosis | CPT/HCPCS: 11042; 97605; A6237; A6250; G0277 ==

== ENCOUNTER → 2022-08-20 08:27 | Outpatient (BNVA) | payer MEDICAID, SELFPAY | PROVIDERS: PCP Family Medicine; Visit Provider Nurse Practitioner Family | DX: E11.621 Type 2 diabetes mellitus with foot ulcer (principal); L97.425 Non-pressure chronic ulcer of left heel and midfoot with muscle involvement without evidence of necrosis; M86.172 Other acute osteomyelitis, left ankle and foot | CPT/HCPCS: G0277 ==

== ENCOUNTER → 2022-08-21 07:42 | Outpatient (BNVA) | payer MEDICAID, SELFPAY | PROVIDERS: PCP Family Medicine; Visit Provider Thoracic Surgery (Cardiothoracic Vascular Surgery) | DX: E11.621 Type 2 diabetes mellitus with foot ulcer (principal); L97.425 Non-pressure chronic ulcer of left heel and midfoot with muscle involvement without evidence of necrosis; M86.172 Other acute osteomyelitis, left ankle and foot | CPT/HCPCS: G0277 ==

== ENCOUNTER → 2022-08-22 07:52 | Outpatient (BNVA) | payer MEDICAID, SELFPAY | PROVIDERS: PCP Family Medicine; Visit Provider Nurse Practitioner Family | DX: E11.621 Type 2 diabetes mellitus with foot ulcer (principal); L97.425 Non-pressure chronic ulcer of left heel and midfoot with muscle involvement without evidence of necrosis; M86.172 Other acute osteomyelitis, left ankle and foot | CPT/HCPCS: G0277 ==

== ENCOUNTER → 2022-08-23 08:33 | Outpatient (BNVA) | payer MEDICAID, SELFPAY | PROVIDERS: PCP Family Medicine; Visit Provider Thoracic Surgery (Cardiothoracic Vascular Surgery) | DX: E11.621 Type 2 diabetes mellitus with foot ulcer (principal); I96 Gangrene, not elsewhere classified; L97.425 Non-pressure chronic ulcer of left heel and midfoot with muscle involvement without evidence of necrosis | CPT/HCPCS: G0277 ==

== ENCOUNTER → 2022-08-26 10:36 | Outpatient (BNVA) | payer MEDICAID, SELFPAY | PROVIDERS: PCP Family Medicine; Visit Provider Thoracic Surgery (Cardiothoracic Vascular Surgery) | DX: E11.621 Type 2 diabetes mellitus with foot ulcer (principal); I96 Gangrene, not elsewhere classified; L97.423 Non-pressure chronic ulcer of left heel and midfoot with necrosis of muscle | CPT/HCPCS: 11042; A6237; A6250 ==

== ENCOUNTER → 2022-08-27 08:28 | Outpatient (BNVA) | payer MEDICAID, SELFPAY | PROVIDERS: PCP Family Medicine; Visit Provider Nurse Practitioner Family | DX: E11.621 Type 2 diabetes mellitus with foot ulcer (principal); L97.425 Non-pressure chronic ulcer of left heel and midfoot with muscle involvement without evidence of necrosis; M86.172 Other acute osteomyelitis, left ankle and foot | CPT/HCPCS: G0277 ==

== ENCOUNTER → 2022-08-28 08:09 | Outpatient (BNVA) | payer MEDICAID, SELFPAY | PROVIDERS: PCP Family Medicine; Visit Provider Thoracic Surgery (Cardiothoracic Vascular Surgery) | DX: E11.621 Type 2 diabetes mellitus with foot ulcer (principal); L97.425 Non-pressure chronic ulcer of left heel and midfoot with muscle involvement without evidence of necrosis | CPT/HCPCS: G0277 ==

== ENCOUNTER → 2022-08-29 07:55 | Outpatient (BNVA) | payer MEDICAID, SELFPAY | PROVIDERS: PCP Family Medicine; Visit Provider Nurse Practitioner Family | DX: E11.621 Type 2 diabetes mellitus with foot ulcer (principal); L97.425 Non-pressure chronic ulcer of left heel and midfoot with muscle involvement without evidence of necrosis; M86.172 Other acute osteomyelitis, left ankle and foot | CPT/HCPCS: G0277 ==

== ENCOUNTER → 2022-08-30 08:40 | Outpatient (BNVA) | payer MEDICAID, SELFPAY | PROVIDERS: PCP Family Medicine; Visit Provider Thoracic Surgery (Cardiothoracic Vascular Surgery) | DX: E11.621 Type 2 diabetes mellitus with foot ulcer (principal); L97.425 Non-pressure chronic ulcer of left heel and midfoot with muscle involvement without evidence of necrosis | CPT/HCPCS: G0277 ==

== ENCOUNTER → 2022-09-03 08:09 | Outpatient (BNVA) | payer MEDICAID, SELFPAY | PROVIDERS: PCP Family Medicine; Visit Provider Nurse Practitioner Family | DX: E11.621 Type 2 diabetes mellitus with foot ulcer (principal); L97.425 Non-pressure chronic ulcer of left heel and midfoot with muscle involvement without evidence of necrosis | CPT/HCPCS: G0277 ==

== ENCOUNTER → 2022-09-04 08:06 | Outpatient (BNVA) | payer MEDICAID, SELFPAY | PROVIDERS: PCP Family Medicine; Visit Provider Thoracic Surgery (Cardiothoracic Vascular Surgery) | DX: E11.621 Type 2 diabetes mellitus with foot ulcer (principal); L97.425 Non-pressure chronic ulcer of left heel and midfoot with muscle involvement without evidence of necrosis; I96 Gangrene, not elsewhere classified | CPT/HCPCS: 11042 ==

== ENCOUNTER → 2022-09-05 08:01 | Outpatient (BNVA) | payer MEDICAID, SELFPAY | PROVIDERS: PCP Family Medicine; Visit Provider Nurse Practitioner Family | DX: E11.621 Type 2 diabetes mellitus with foot ulcer (principal); L97.425 Non-pressure chronic ulcer of left heel and midfoot with muscle involvement without evidence of necrosis | CPT/HCPCS: 11042; 97605; G0277 ==

== ENCOUNTER → 2022-09-09 10:50 | Outpatient (BNVA) | payer MEDICAID, SELFPAY | PROVIDERS: PCP Family Medicine; Visit Provider Thoracic Surgery (Cardiothoracic Vascular Surgery) | DX: E11.52 Type 2 diabetes mellitus with diabetic peripheral angiopathy with gangrene (principal); L89.893 Pressure ulcer of other site, stage 3 | CPT/HCPCS: A6237; A6250 ==

== ENCOUNTER → 2022-09-10 08:15 | Outpatient (BNVA) | payer MEDICAID, SELFPAY | PROVIDERS: PCP Family Medicine; Visit Provider Nurse Practitioner Family | DX: E11.621 Type 2 diabetes mellitus with foot ulcer (principal); L97.425 Non-pressure chronic ulcer of left heel and midfoot with muscle involvement without evidence of necrosis | CPT/HCPCS: G0277 ==

== ENCOUNTER → 2022-09-11 08:09 | Outpatient (BNVA) | payer MEDICAID, SELFPAY | PROVIDERS: PCP Family Medicine; Visit Provider Thoracic Surgery (Cardiothoracic Vascular Surgery) | DX: E11.621 Type 2 diabetes mellitus with foot ulcer (principal); L97.425 Non-pressure chronic ulcer of left heel and midfoot with muscle involvement without evidence of necrosis | CPT/HCPCS: G0277 ==

== ENCOUNTER → 2022-09-12 08:01 | Outpatient (BNVA) | payer MEDICAID, SELFPAY | PROVIDERS: PCP Family Medicine; Visit Provider Nurse Practitioner Family | DX: E11.621 Type 2 diabetes mellitus with foot ulcer (principal); L97.425 Non-pressure chronic ulcer of left heel and midfoot with muscle involvement without evidence of necrosis | CPT/HCPCS: G0277 ==

== ENCOUNTER → 2022-09-13 08:04 | Outpatient (BNVA) | payer MEDICAID, SELFPAY | PROVIDERS: PCP Family Medicine; Visit Provider Thoracic Surgery (Cardiothoracic Vascular Surgery) | DX: E11.621 Type 2 diabetes mellitus with foot ulcer (principal); L97.425 Non-pressure chronic ulcer of left heel and midfoot with muscle involvement without evidence of necrosis | CPT/HCPCS: G0277 ==

== ENCOUNTER → 2022-09-16 10:43 | Outpatient (BNVA) | payer MEDICAID, SELFPAY | PROVIDERS: PCP Family Medicine; Visit Provider Thoracic Surgery (Cardiothoracic Vascular Surgery) | DX: E11.621 Type 2 diabetes mellitus with foot ulcer (principal); L97.425 Non-pressure chronic ulcer of left heel and midfoot with muscle involvement without evidence of necrosis | CPT/HCPCS: 11042; A6210; G0277 ==

== ENCOUNTER → 2022-09-17 08:07 | Outpatient (BNVA) | payer MEDICAID, SELFPAY | PROVIDERS: PCP Family Medicine; Visit Provider Nurse Practitioner Family | DX: E11.621 Type 2 diabetes mellitus with foot ulcer (principal); L97.425 Non-pressure chronic ulcer of left heel and midfoot with muscle involvement without evidence of necrosis | CPT/HCPCS: G0277 ==

== ENCOUNTER → 2022-09-18 07:56 | Outpatient (BNVA) | payer MEDICAID, SELFPAY | PROVIDERS: PCP Family Medicine; Visit Provider Thoracic Surgery (Cardiothoracic Vascular Surgery) | DX: E11.621 Type 2 diabetes mellitus with foot ulcer (principal); L97.425 Non-pressure chronic ulcer of left heel and midfoot with muscle involvement without evidence of necrosis | CPT/HCPCS: G0277 ==

== ENCOUNTER → 2022-09-20 08:13 | Outpatient (BNVA) | payer MEDICAID, SELFPAY | PROVIDERS: PCP Family Medicine; Visit Provider Thoracic Surgery (Cardiothoracic Vascular Surgery) | DX: E11.621 Type 2 diabetes mellitus with foot ulcer (principal); L97.425 Non-pressure chronic ulcer of left heel and midfoot with muscle involvement without evidence of necrosis | CPT/HCPCS: G0277 ==

== ENCOUNTER → 2022-09-23 09:04 | Outpatient (BNVA) | payer MEDICAID, SELFPAY | PROVIDERS: PCP Family Medicine; Visit Provider Thoracic Surgery (Cardiothoracic Vascular Surgery) | DX: E11.52 Type 2 diabetes mellitus with diabetic peripheral angiopathy with gangrene (principal); L97.425 Non-pressure chronic ulcer of left heel and midfoot with muscle involvement without evidence of necrosis | CPT/HCPCS: 11042; 97605; A6237; G0277 ==

== ENCOUNTER → 2022-09-24 08:08 | Outpatient (BNVA) | payer MEDICAID, SELFPAY | PROVIDERS: PCP Family Medicine; Visit Provider Nurse Practitioner Family | DX: E11.621 Type 2 diabetes mellitus with foot ulcer (principal); L97.415 Non-pressure chronic ulcer of right heel and midfoot with muscle involvement without evidence of necrosis | CPT/HCPCS: G0277 ==

== ENCOUNTER → 2022-09-25 08:04 | Outpatient (BNVA) | payer MEDICAID, SELFPAY | PROVIDERS: PCP Family Medicine; Visit Provider Thoracic Surgery (Cardiothoracic Vascular Surgery) | DX: E11.621 Type 2 diabetes mellitus with foot ulcer (principal); L97.425 Non-pressure chronic ulcer of left heel and midfoot with muscle involvement without evidence of necrosis | CPT/HCPCS: G0277 ==

== ENCOUNTER → 2022-09-26 08:25 | Outpatient (BNVA) | payer MEDICAID, SELFPAY | PROVIDERS: PCP Family Medicine; Visit Provider Nurse Practitioner Family | DX: L97.425 Non-pressure chronic ulcer of left heel and midfoot with muscle involvement without evidence of necrosis; E11.52 Type 2 diabetes mellitus with diabetic peripheral angiopathy with gangrene | CPT/HCPCS: G0277 ==

== ENCOUNTER → 2022-09-27 08:35 | Outpatient (BNVA) | payer MEDICAID, SELFPAY | PROVIDERS: PCP Family Medicine; Visit Provider Thoracic Surgery (Cardiothoracic Vascular Surgery) | DX: E11.52 Type 2 diabetes mellitus with diabetic peripheral angiopathy with gangrene (principal); L97.425 Non-pressure chronic ulcer of left heel and midfoot with muscle involvement without evidence of necrosis | CPT/HCPCS: 99212 ==

== ENCOUNTER → 2022-09-30 10:44 | Outpatient (BNVA) | payer MEDICAID, SELFPAY | PROVIDERS: PCP Family Medicine; Visit Provider Thoracic Surgery (Cardiothoracic Vascular Surgery) | DX: E11.52 Type 2 diabetes mellitus with diabetic peripheral angiopathy with gangrene (principal); L97.425 Non-pressure chronic ulcer of left heel and midfoot with muscle involvement without evidence of necrosis | CPT/HCPCS: 11042; G0277 ==

== ENCOUNTER → 2022-10-01 08:01 | Outpatient (BNVA) | payer MEDICAID, SELFPAY | PROVIDERS: PCP Family Medicine; Visit Provider Nurse Practitioner Family | DX: E11.52 Type 2 diabetes mellitus with diabetic peripheral angiopathy with gangrene (principal); L97.426 Non-pressure chronic ulcer of left heel and midfoot with bone involvement without evidence of necrosis | CPT/HCPCS: G0277 ==

== ENCOUNTER → 2022-10-02 07:57 | Outpatient (BNVA) | payer MEDICAID, SELFPAY | PROVIDERS: PCP Family Medicine; Visit Provider Thoracic Surgery (Cardiothoracic Vascular Surgery) | DX: E11.52 Type 2 diabetes mellitus with diabetic peripheral angiopathy with gangrene (principal); L97.426 Non-pressure chronic ulcer of left heel and midfoot with bone involvement without evidence of necrosis; E11.42 Type 2 diabetes mellitus with diabetic polyneuropathy; E11.65 Type 2 diabetes mellitus with hyperglycemia; Z79.84 Long term (current) use of oral hypoglycemic drugs; Z79.4 Long term (current) use of insulin | CPT/HCPCS: 99214; G0277 ==

== ENCOUNTER → 2022-10-03 08:07 | Outpatient (BNVA) | payer MEDICAID, SELFPAY | PROVIDERS: PCP Family Medicine; Visit Provider Nurse Practitioner Family | DX: E11.52 Type 2 diabetes mellitus with diabetic peripheral angiopathy with gangrene (principal); L97.426 Non-pressure chronic ulcer of left heel and midfoot with bone involvement without evidence of necrosis | CPT/HCPCS: G0277 ==

== ENCOUNTER → 2022-10-07 09:17 | Outpatient (BNVA) | payer MEDICAID, SELFPAY | PROVIDERS: PCP Family Medicine; Visit Provider Thoracic Surgery (Cardiothoracic Vascular Surgery) | DX: E11.52 Type 2 diabetes mellitus with diabetic peripheral angiopathy with gangrene (principal); L97.425 Non-pressure chronic ulcer of left heel and midfoot with muscle involvement without evidence of necrosis | CPT/HCPCS: 11042; 97605; 99212; A6237; A6250 ==

== ENCOUNTER → 2022-10-10 08:11 | Outpatient (BNVA) | payer MEDICAID, SELFPAY | PROVIDERS: PCP Family Medicine; Visit Provider Nurse Practitioner Family | DX: E11.52 Type 2 diabetes mellitus with diabetic peripheral angiopathy with gangrene (principal); L97.425 Non-pressure chronic ulcer of left heel and midfoot with muscle involvement without evidence of necrosis | CPT/HCPCS: 99212 ==

== ENCOUNTER → 2022-10-11 08:14 | Outpatient (BNVA) | payer MEDICAID, SELFPAY | PROVIDERS: PCP Family Medicine; Visit Provider Thoracic Surgery (Cardiothoracic Vascular Surgery) | DX: E11.52 Type 2 diabetes mellitus with diabetic peripheral angiopathy with gangrene (principal); L97.425 Non-pressure chronic ulcer of left heel and midfoot with muscle involvement without evidence of necrosis | CPT/HCPCS: 99212 ==

== ENCOUNTER → 2022-10-14 07:52 | Outpatient (BNVA) | payer MEDICAID, SELFPAY | PROVIDERS: PCP Family Medicine; Visit Provider Specialist | DX: Z96.642 Presence of left artificial hip joint (principal); E11.621 Type 2 diabetes mellitus with foot ulcer; L97.523 Non-pressure chronic ulcer of other part of left foot with necrosis of muscle; Z79.84 Long term (current) use of oral hypoglycemic drugs; Z79.4 Long term (current) use of insulin; I96 Gangrene, not elsewhere classified | CPT/HCPCS: 11042; 73502; 97605; 99213; A6237; A6250; G0277 ==

== ENCOUNTER → 2022-10-16 08:27 | Outpatient (BNVA) | payer MEDICAID, SELFPAY | PROVIDERS: PCP Family Medicine; Visit Provider Thoracic Surgery (Cardiothoracic Vascular Surgery) | DX: E11.621 Type 2 diabetes mellitus with foot ulcer (principal); L97.425 Non-pressure chronic ulcer of left heel and midfoot with muscle involvement without evidence of necrosis | CPT/HCPCS: 99212; G0277 ==

== ENCOUNTER → 2022-10-17 08:04 | Outpatient (BNVA) | payer MEDICAID, SELFPAY | PROVIDERS: PCP Family Medicine; Visit Provider Nurse Practitioner Family | DX: E11.621 Type 2 diabetes mellitus with foot ulcer (principal); L97.525 Non-pressure chronic ulcer of other part of left foot with muscle involvement without evidence of necrosis | CPT/HCPCS: G0277 ==

== ENCOUNTER → 2022-10-18 08:11 | Outpatient (BNVA) | payer MEDICAID, SELFPAY | PROVIDERS: PCP Family Medicine; Visit Provider Thoracic Surgery (Cardiothoracic Vascular Surgery) | DX: E11.621 Type 2 diabetes mellitus with foot ulcer (principal); L97.425 Non-pressure chronic ulcer of left heel and midfoot with muscle involvement without evidence of necrosis; I10 Essential (primary) hypertension | CPT/HCPCS: 97605; 99213; A6237; G0277 ==

== ENCOUNTER → 2022-10-21 10:49 | Outpatient (BNVA) | payer MEDICAID, SELFPAY | PROVIDERS: PCP Family Medicine; Visit Provider Nurse Practitioner Family | DX: E11.621 Type 2 diabetes mellitus with foot ulcer (principal); L97.425 Non-pressure chronic ulcer of left heel and midfoot with muscle involvement without evidence of necrosis | CPT/HCPCS: 11042; 97605; A6237; A6250; G0277 ==

== ENCOUNTER → 2022-10-23 08:15 | Outpatient (BNVA) | payer MEDICAID, SELFPAY | PROVIDERS: PCP Family Medicine; Visit Provider Thoracic Surgery (Cardiothoracic Vascular Surgery) | DX: E11.621 Type 2 diabetes mellitus with foot ulcer (principal); L97.425 Non-pressure chronic ulcer of left heel and midfoot with muscle involvement without evidence of necrosis | CPT/HCPCS: G0277 ==

== ENCOUNTER → 2022-10-24 08:14 | Outpatient (BNVA) | payer MEDICAID, SELFPAY | PROVIDERS: PCP Family Medicine; Visit Provider Nurse Practitioner Family | DX: E11.621 Type 2 diabetes mellitus with foot ulcer (principal); L97.425 Non-pressure chronic ulcer of left heel and midfoot with muscle involvement without evidence of necrosis | CPT/HCPCS: G0277 ==

== ENCOUNTER → 2022-10-25 08:16 | Outpatient (BNVA) | payer MEDICAID, SELFPAY | PROVIDERS: PCP Family Medicine; Visit Provider Thoracic Surgery (Cardiothoracic Vascular Surgery) | DX: E11.621 Type 2 diabetes mellitus with foot ulcer (principal); L97.425 Non-pressure chronic ulcer of left heel and midfoot with muscle involvement without evidence of necrosis | CPT/HCPCS: G0277 ==

== ENCOUNTER → 2022-10-28 10:13 | Outpatient (BNVA) | payer MEDICAID, SELFPAY | PROVIDERS: PCP Family Medicine; Visit Provider Thoracic Surgery (Cardiothoracic Vascular Surgery) | DX: E11.621 Type 2 diabetes mellitus with foot ulcer (principal); L97.425 Non-pressure chronic ulcer of left heel and midfoot with muscle involvement without evidence of necrosis | CPT/HCPCS: 11042; 97605; A6237; A6250 ==

== ENCOUNTER → 2022-11-04 13:16 | Outpatient (BNVA) | payer MEDICAID, SELFPAY | PROVIDERS: PCP Family Medicine; Visit Provider Thoracic Surgery (Cardiothoracic Vascular Surgery) | DX: E11.52 Type 2 diabetes mellitus with diabetic peripheral angiopathy with gangrene (principal); L89.893 Pressure ulcer of other site, stage 3 | CPT/HCPCS: 11042; 97605; A6237; A6250 ==

== ENCOUNTER → 2022-11-11 14:50 | Outpatient (BNVA) | payer MEDICAID, SELFPAY | PROVIDERS: PCP Family Medicine; Visit Provider Thoracic Surgery (Cardiothoracic Vascular Surgery) | DX: E11.52 Type 2 diabetes mellitus with diabetic peripheral angiopathy with gangrene (principal); L89.893 Pressure ulcer of other site, stage 3 | CPT/HCPCS: 11042; 97605; A6212; A6237; A6250 ==

== ENCOUNTER → 2022-11-18 10:50 | Outpatient (BNVA) | payer MEDICAID, SELFPAY | PROVIDERS: PCP Family Medicine; Visit Provider Thoracic Surgery (Cardiothoracic Vascular Surgery) | DX: E11.52 Type 2 diabetes mellitus with diabetic peripheral angiopathy with gangrene (principal); L89.893 Pressure ulcer of other site, stage 3 | CPT/HCPCS: 11042 ==

== ENCOUNTER → 2022-11-25 10:38 | Outpatient (BNVA) | payer MEDICAID, SELFPAY | PROVIDERS: PCP Family Medicine; Visit Provider Thoracic Surgery (Cardiothoracic Vascular Surgery) | DX: E11.52 Type 2 diabetes mellitus with diabetic peripheral angiopathy with gangrene (principal); L89.893 Pressure ulcer of other site, stage 3 | CPT/HCPCS: 11042; 97605; A6250 ==

== ENCOUNTER → 2022-11-28 14:34 | Outpatient (BNVA) | payer MEDICAID, SELFPAY | PROVIDERS: PCP Family Medicine; Visit Provider Internal Medicine | DX: E11.621 Type 2 diabetes mellitus with foot ulcer (principal); L97.529 Non-pressure chronic ulcer of other part of left foot with unspecified severity; E11.65 Type 2 diabetes mellitus with hyperglycemia; E11.42 Type 2 diabetes mellitus with diabetic polyneuropathy; M86.172 Other acute osteomyelitis, left ankle and foot; Z79.4 Long term (current) use of insulin; Z79.84 Long term (current) use of oral hypoglycemic drugs | CPT/HCPCS: 99214 ==

== ENCOUNTER → 2022-12-02 10:39 | Outpatient (BNVA) | payer MEDICAID, SELFPAY | PROVIDERS: PCP Family Medicine; Visit Provider Thoracic Surgery (Cardiothoracic Vascular Surgery) | DX: E11.52 Type 2 diabetes mellitus with diabetic peripheral angiopathy with gangrene (principal); L97.423 Non-pressure chronic ulcer of left heel and midfoot with necrosis of muscle | CPT/HCPCS: 11042 ==

== ENCOUNTER → 2022-12-16 10:05 | Outpatient (BNVA) | payer MEDICAID, SELFPAY | PROVIDERS: PCP Family Medicine; Visit Provider Thoracic Surgery (Cardiothoracic Vascular Surgery) | DX: E11.52 Type 2 diabetes mellitus with diabetic peripheral angiopathy with gangrene (principal); L89.893 Pressure ulcer of other site, stage 3 | CPT/HCPCS: 11042; 97605; A6237; A6250 ==

== ENCOUNTER → 2022-12-23 10:21 | Outpatient (BNVA) | payer MEDICAID, SELFPAY | PROVIDERS: PCP Family Medicine; Visit Provider Nurse Practitioner Family | DX: E11.52 Type 2 diabetes mellitus with diabetic peripheral angiopathy with gangrene (principal); L97.422 Non-pressure chronic ulcer of left heel and midfoot with fat layer exposed | CPT/HCPCS: 11042; 97605 ==

== ENCOUNTER → 2022-12-30 10:14 | Outpatient (BNVA) | payer MEDICAID, SELFPAY | PROVIDERS: PCP Family Medicine; Visit Provider Thoracic Surgery (Cardiothoracic Vascular Surgery) | DX: E11.52 Type 2 diabetes mellitus with diabetic peripheral angiopathy with gangrene (principal); L89.893 Pressure ulcer of other site, stage 3 | CPT/HCPCS: 11042 ==

== ENCOUNTER → 2023-01-06 10:58 | Outpatient (BNVA) | payer MEDICAID, SELFPAY | PROVIDERS: PCP Family Medicine; Visit Provider Thoracic Surgery (Cardiothoracic Vascular Surgery) | DX: E11.52 Type 2 diabetes mellitus with diabetic peripheral angiopathy with gangrene (principal); E11.621 Type 2 diabetes mellitus with foot ulcer; L97.422 Non-pressure chronic ulcer of left heel and midfoot with fat layer exposed | CPT/HCPCS: 11042 ==

== ENCOUNTER → 2023-01-08 11:08 | Outpatient (BNVA) | payer MEDICAID, SELFPAY | PROVIDERS: PCP Family Medicine; Visit Provider Internal Medicine | DX: E11.65 Type 2 diabetes mellitus with hyperglycemia; E11.40 Type 2 diabetes mellitus with diabetic neuropathy, unspecified; Z79.4 Long term (current) use of insulin; Z79.84 Long term (current) use of oral hypoglycemic drugs | CPT/HCPCS: 99215 ==

== ENCOUNTER → 2023-01-13 11:06 | Outpatient (BNVA) | payer MEDICAID, SELFPAY | PROVIDERS: PCP Family Medicine; Visit Provider Thoracic Surgery (Cardiothoracic Vascular Surgery) | DX: E11.52 Type 2 diabetes mellitus with diabetic peripheral angiopathy with gangrene (principal); L89.893 Pressure ulcer of other site, stage 3 | CPT/HCPCS: 11042 ==

== ENCOUNTER → 2023-01-20 11:07 | Outpatient (BNVA) | payer MEDICAID, SELFPAY | PROVIDERS: PCP Family Medicine; Visit Provider Thoracic Surgery (Cardiothoracic Vascular Surgery) | DX: I96 Gangrene, not elsewhere classified (principal); L89.893 Pressure ulcer of other site, stage 3 | CPT/HCPCS: 11042 ==

== ENCOUNTER → 2023-01-27 14:58 | Outpatient (BNVA) | payer MEDICAID, SELFPAY | PROVIDERS: PCP Family Medicine; Visit Provider Nurse Practitioner Family | DX: E11.52 Type 2 diabetes mellitus with diabetic peripheral angiopathy with gangrene (principal); E11.621 Type 2 diabetes mellitus with foot ulcer; L97.422 Non-pressure chronic ulcer of left heel and midfoot with fat layer exposed | CPT/HCPCS: 11042 ==

== ENCOUNTER → 2023-02-10 11:09 | Outpatient (BNVA) | payer MEDICAID, SELFPAY | PROVIDERS: PCP Family Medicine; Visit Provider Thoracic Surgery (Cardiothoracic Vascular Surgery) | DX: E11.52 Type 2 diabetes mellitus with diabetic peripheral angiopathy with gangrene (principal); E11.621 Type 2 diabetes mellitus with foot ulcer; L97.422 Non-pressure chronic ulcer of left heel and midfoot with fat layer exposed | CPT/HCPCS: 11042; A6021 ==

== ENCOUNTER → 2023-02-12 10:39 | Outpatient (BNVA) | payer MEDICAID, SELFPAY | PROVIDERS: PCP Family Medicine; Visit Provider Internal Medicine | DX: E11.65 Type 2 diabetes mellitus with hyperglycemia; E11.42 Type 2 diabetes mellitus with diabetic polyneuropathy; Z79.4 Long term (current) use of insulin | CPT/HCPCS: 99214 ==

== ENCOUNTER → 2023-02-17 10:38 | Outpatient (BNVA) | payer MEDICAID, SELFPAY | PROVIDERS: PCP Family Medicine; Visit Provider Thoracic Surgery (Cardiothoracic Vascular Surgery) | DX: E11.52 Type 2 diabetes mellitus with diabetic peripheral angiopathy with gangrene (principal); E11.621 Type 2 diabetes mellitus with foot ulcer; L97.421 Non-pressure chronic ulcer of left heel and midfoot limited to breakdown of skin | CPT/HCPCS: 11042; A6021 ==

== ENCOUNTER → 2023-02-24 10:45 | Outpatient (BNVA) | payer MEDICAID, SELFPAY | PROVIDERS: PCP Family Medicine; Visit Provider Thoracic Surgery (Cardiothoracic Vascular Surgery) | DX: E11.52 Type 2 diabetes mellitus with diabetic peripheral angiopathy with gangrene (principal); E11.621 Type 2 diabetes mellitus with foot ulcer; L97.421 Non-pressure chronic ulcer of left heel and midfoot limited to breakdown of skin | CPT/HCPCS: 97597; A6021 ==

== ENCOUNTER → 2023-03-10 10:37 | Outpatient (BNVA) | payer MEDICAID, SELFPAY | PROVIDERS: PCP Family Medicine; Visit Provider Thoracic Surgery (Cardiothoracic Vascular Surgery) | DX: E11.52 Type 2 diabetes mellitus with diabetic peripheral angiopathy with gangrene (principal); E11.621 Type 2 diabetes mellitus with foot ulcer; L97.422 Non-pressure chronic ulcer of left heel and midfoot with fat layer exposed | CPT/HCPCS: 11042; A6021; A6212 ==

== ENCOUNTER → 2023-03-24 10:25 | Outpatient (BNVA) | payer MEDICAID, SELFPAY | PROVIDERS: PCP Family Medicine; Visit Provider Thoracic Surgery (Cardiothoracic Vascular Surgery) | DX: E11.52 Type 2 diabetes mellitus with diabetic peripheral angiopathy with gangrene (principal); E11.621 Type 2 diabetes mellitus with foot ulcer; L97.422 Non-pressure chronic ulcer of left heel and midfoot with fat layer exposed | CPT/HCPCS: 11042; A6021; A6210; A6251 ==

== ENCOUNTER → 2023-04-14 08:30 | Outpatient (BNVA) | payer MEDICAID, SELFPAY | PROVIDERS: PCP Family Medicine; Visit Provider Thoracic Surgery (Cardiothoracic Vascular Surgery) | DX: E11.52 Type 2 diabetes mellitus with diabetic peripheral angiopathy with gangrene (principal); E11.621 Type 2 diabetes mellitus with foot ulcer; L97.422 Non-pressure chronic ulcer of left heel and midfoot with fat layer exposed | CPT/HCPCS: 11042; A6021 ==

== ENCOUNTER → 2023-04-21 10:07 | Outpatient (BNVA) | payer MEDICAID, SELFPAY | PROVIDERS: PCP Family Medicine; Visit Provider Thoracic Surgery (Cardiothoracic Vascular Surgery) | DX: E11.52 Type 2 diabetes mellitus with diabetic peripheral angiopathy with gangrene (principal); E11.621 Type 2 diabetes mellitus with foot ulcer; L97.422 Non-pressure chronic ulcer of left heel and midfoot with fat layer exposed | CPT/HCPCS: 11042; A6021 ==

== ENCOUNTER → 2023-05-05 13:57 | Outpatient (BNVA) | payer MEDICAID, SELFPAY | PROVIDERS: PCP Family Medicine; Visit Provider Thoracic Surgery (Cardiothoracic Vascular Surgery) | DX: E11.52 Type 2 diabetes mellitus with diabetic peripheral angiopathy with gangrene (principal); E11.621 Type 2 diabetes mellitus with foot ulcer; L97.422 Non-pressure chronic ulcer of left heel and midfoot with fat layer exposed | CPT/HCPCS: 11042; A6210 ==

== ENCOUNTER → 2023-05-13 13:11 | Outpatient (BNVA) | payer MEDICAID, SELFPAY | PROVIDERS: PCP Family Medicine; Visit Provider Thoracic Surgery (Cardiothoracic Vascular Surgery) | DX: E11.52 Type 2 diabetes mellitus with diabetic peripheral angiopathy with gangrene (principal); E11.621 Type 2 diabetes mellitus with foot ulcer; L97.421 Non-pressure chronic ulcer of left heel and midfoot limited to breakdown of skin | CPT/HCPCS: 97597 ==

== ENCOUNTER → 2023-05-20 10:21 | Outpatient (BNVA) | payer MEDICAID, SELFPAY | PROVIDERS: PCP Family Medicine; Visit Provider Thoracic Surgery (Cardiothoracic Vascular Surgery) | DX: E11.52 Type 2 diabetes mellitus with diabetic peripheral angiopathy with gangrene (principal); E11.621 Type 2 diabetes mellitus with foot ulcer; L97.421 Non-pressure chronic ulcer of left heel and midfoot limited to breakdown of skin | CPT/HCPCS: 97597; A6212; A6252 ==

== ENCOUNTER → 2023-05-21 13:30 | Outpatient (BNVA) | payer MEDICAID, SELFPAY | PROVIDERS: PCP Family Medicine; Visit Provider Internal Medicine | DX: E11.65 Type 2 diabetes mellitus with hyperglycemia (principal); E11.621 Type 2 diabetes mellitus with foot ulcer; E11.42 Type 2 diabetes mellitus with diabetic polyneuropathy; L97.529 Non-pressure chronic ulcer of other part of left foot with unspecified severity; M86.172 Other acute osteomyelitis, left ankle and foot; Z79.4 Long term (current) use of insulin; Z79.84 Long term (current) use of oral hypoglycemic drugs | CPT/HCPCS: 36415; 80053; 80061; 82044; 83036; 83721; 99214 ==

== ENCOUNTER → 2023-05-22 09:46 | Outpatient (BNVA) | payer MEDICAID, SELFPAY | PROVIDERS: PCP Family Medicine; Visit Provider Thoracic Surgery (Cardiothoracic Vascular Surgery) | DX: E11.52 Type 2 diabetes mellitus with diabetic peripheral angiopathy with gangrene (principal); E11.621 Type 2 diabetes mellitus with foot ulcer; L97.422 Non-pressure chronic ulcer of left heel and midfoot with fat layer exposed | CPT/HCPCS: 29445; 97597; A6210; A6251 ==

== ENCOUNTER → 2023-05-27 10:56 | Outpatient (BNVA) | payer MEDICAID, SELFPAY | PROVIDERS: PCP Family Medicine; Visit Provider Thoracic Surgery (Cardiothoracic Vascular Surgery) | DX: E11.52 Type 2 diabetes mellitus with diabetic peripheral angiopathy with gangrene (principal); E11.621 Type 2 diabetes mellitus with foot ulcer; L89.893 Pressure ulcer of other site, stage 3 | CPT/HCPCS: 97597; A6251 ==

== ENCOUNTER → 2023-05-30 10:02 | Outpatient (BNVA) | payer MEDICAID, SELFPAY | PROVIDERS: PCP Family Medicine; Visit Provider Thoracic Surgery (Cardiothoracic Vascular Surgery) | DX: E11.52 Type 2 diabetes mellitus with diabetic peripheral angiopathy with gangrene (principal); E11.621 Type 2 diabetes mellitus with foot ulcer; L97.422 Non-pressure chronic ulcer of left heel and midfoot with fat layer exposed | CPT/HCPCS: 29445; A6210; A6251 ==

== ENCOUNTER → 2023-06-03 10:18 | Outpatient (BNVA) | payer MEDICAID, SELFPAY | PROVIDERS: PCP Family Medicine; Visit Provider Thoracic Surgery (Cardiothoracic Vascular Surgery) | DX: E11.52 Type 2 diabetes mellitus with diabetic peripheral angiopathy with gangrene (principal); E11.621 Type 2 diabetes mellitus with foot ulcer; L97.421 Non-pressure chronic ulcer of left heel and midfoot limited to breakdown of skin | CPT/HCPCS: 97597; A6212; A6252 ==

== ENCOUNTER → 2023-06-05 14:03 | Outpatient (BNVA) | payer MEDICAID, SELFPAY | PROVIDERS: PCP Family Medicine; Visit Provider Thoracic Surgery (Cardiothoracic Vascular Surgery) | DX: E11.52 Type 2 diabetes mellitus with diabetic peripheral angiopathy with gangrene (principal); E11.621 Type 2 diabetes mellitus with foot ulcer; L97.426 Non-pressure chronic ulcer of left heel and midfoot with bone involvement without evidence of necrosis | CPT/HCPCS: 29445 ==

== ENCOUNTER → 2023-06-09 15:09 | Outpatient (BNVA) | payer MEDICAID, SELFPAY | PROVIDERS: PCP Family Medicine; Visit Provider Nurse Practitioner Family | DX: E11.52 Type 2 diabetes mellitus with diabetic peripheral angiopathy with gangrene (principal); E11.621 Type 2 diabetes mellitus with foot ulcer; L97.426 Non-pressure chronic ulcer of left heel and midfoot with bone involvement without evidence of necrosis | CPT/HCPCS: 29445; A6210; A6251 ==

== ENCOUNTER → 2023-06-11 10:40 | Outpatient (BNVA) | payer MEDICAID, SELFPAY | PROVIDERS: PCP Family Medicine; Visit Provider Thoracic Surgery (Cardiothoracic Vascular Surgery) | DX: E11.52 Type 2 diabetes mellitus with diabetic peripheral angiopathy with gangrene (principal); E11.621 Type 2 diabetes mellitus with foot ulcer; L97.421 Non-pressure chronic ulcer of left heel and midfoot limited to breakdown of skin | CPT/HCPCS: 97597 ==

== ENCOUNTER → 2023-06-18 09:18 | Outpatient (BNVA) | payer MEDICAID, SELFPAY | PROVIDERS: PCP Family Medicine; Visit Provider Thoracic Surgery (Cardiothoracic Vascular Surgery) | DX: E11.52 Type 2 diabetes mellitus with diabetic peripheral angiopathy with gangrene (principal); E11.621 Type 2 diabetes mellitus with foot ulcer; L89.893 Pressure ulcer of other site, stage 3 | CPT/HCPCS: 29445 ==

== ENCOUNTER → 2023-06-25 10:05 | Outpatient (BNVA) | payer MEDICAID, SELFPAY | PROVIDERS: PCP Family Medicine; Visit Provider Thoracic Surgery (Cardiothoracic Vascular Surgery) | DX: E11.52 Type 2 diabetes mellitus with diabetic peripheral angiopathy with gangrene (principal); E11.621 Type 2 diabetes mellitus with foot ulcer; L97.421 Non-pressure chronic ulcer of left heel and midfoot limited to breakdown of skin | CPT/HCPCS: 97597; A6197; A6251 ==

== ENCOUNTER → 2023-06-27 09:23 | Outpatient (BNVA) | payer MEDICAID, SELFPAY | PROVIDERS: PCP Family Medicine; Visit Provider Thoracic Surgery (Cardiothoracic Vascular Surgery) | DX: E11.52 Type 2 diabetes mellitus with diabetic peripheral angiopathy with gangrene (principal); E11.621 Type 2 diabetes mellitus with foot ulcer; L97.421 Non-pressure chronic ulcer of left heel and midfoot limited to breakdown of skin | CPT/HCPCS: 29445; A6197; A6212; A6251 ==

== ENCOUNTER → 2023-07-02 10:51 | Outpatient (BNVA) | payer MEDICAID, SELFPAY | PROVIDERS: PCP Family Medicine; Visit Provider Thoracic Surgery (Cardiothoracic Vascular Surgery) | DX: E11.52 Type 2 diabetes mellitus with diabetic peripheral angiopathy with gangrene (principal); E11.621 Type 2 diabetes mellitus with foot ulcer; L97.421 Non-pressure chronic ulcer of left heel and midfoot limited to breakdown of skin | CPT/HCPCS: 29445; A6197; A6210; A6251 ==

== ENCOUNTER → 2023-07-09 10:25 | Outpatient (BNVA) | payer MEDICAID, SELFPAY | PROVIDERS: PCP Family Medicine; Visit Provider Thoracic Surgery (Cardiothoracic Vascular Surgery) | DX: E11.52 Type 2 diabetes mellitus with diabetic peripheral angiopathy with gangrene (principal); E11.621 Type 2 diabetes mellitus with foot ulcer; L97.422 Non-pressure chronic ulcer of left heel and midfoot with fat layer exposed | CPT/HCPCS: 97597; A6021; A6251 ==

== ENCOUNTER → 2023-07-16 10:42 | Outpatient (BNVA) | payer MEDICAID, SELFPAY | PROVIDERS: PCP Family Medicine; Visit Provider Thoracic Surgery (Cardiothoracic Vascular Surgery) | DX: E11.52 Type 2 diabetes mellitus with diabetic peripheral angiopathy with gangrene (principal); E11.621 Type 2 diabetes mellitus with foot ulcer; L97.421 Non-pressure chronic ulcer of left heel and midfoot limited to breakdown of skin | CPT/HCPCS: 97597; A6021; A6210; A6251 ==

== ENCOUNTER 2023-07-23 12:40 | Outpatient (CLI) | payer MEDICAID, SELFPAY ==
--- NOTE | 2023-07-23 12:45 | XR_ITS ---
WS: [id number] Exam: XR foot LT min 3V* [id number] Date/Time of Exam: 07/23/2023 12:47 PM Reason For Exam: rule out osteomyelitis; non healing ulcer left lateral foot Comparison 06/04/2022. There has been interval of bone destruction and bony sclerosis of the cuboid suspicious for acute ost eomyelitis. There also appears to be some further bone destruction at the base of the remaining porti on of the fourth and third metatarsals.. There is also likely osteomyelitis involvement of the second and third cuneiform bones which represent a change since the last study. There is soft tissue edema of the foot. Status post amputation of the toes, the distal fourth metatarsal and the complete fifth ray. IMPRESSION: 1. New areas of bone destruction involving the second and third cuneiform bones, the cuboid, and the proximal third and fourth metatarsals suspicious for acute osteomyelitis involvement. Associated soft tissue swelling. 2. Postoperative changes of the LEFT foot as described above. 3. There may be skin ulceration at the level of the cuboid.
== END 2023-07-23 12:41 | disposition home or self-care (01) ==
LOC: RAD 12:41
PROVIDERS: PCP Family Medicine; Visit Provider Thoracic Surgery (Cardiothoracic Vascular Surgery)
DX: E11.621 Type 2 diabetes mellitus with foot ulcer (principal); L97.528 Non-pressure chronic ulcer of other part of left foot with other specified severity; M89.8X7 Other specified disorders of bone, ankle and foot
CPT/HCPCS: 73630; 97597; A6197; A6219; A6252

== ENCOUNTER 2023-07-24 11:52 | Outpatient (CLI) | payer MEDICAID, SELFPAY ==
[2023-07-24 12:47] LABS: Erythrocyte Sedimentation Rate 40 mm/hr (0-10)
[2023-07-24 13:10] LABS: Anion Gap 14.7 (5-19); Blood Urea Nitrogen 16 mg/dL (8-23); C Reactive Protein 7.8 mg/L (0.0-4.9); Calcium 9.2 mg/dL (8.5-10.5); Carbon Dioxide 27 mmol/L (22-29); Chloride 96 mmol/L (98-107); Glomerular Filtration Rate 75.5 mL/min (90-130); Glucose 445 mg/dL (65-115); Osmolality Calculated 296 mOsm/kg (285-295); Potassium 4.7 mmol/L (3.5-5.1); Sodium 133 mmol/L (136-145)
== END 2023-07-24 11:53 | disposition home or self-care (01) ==
LOC: LAB 11:54
PROVIDERS: PCP Family Medicine; Visit Provider Thoracic Surgery (Cardiothoracic Vascular Surgery)
DX: E11.621 Type 2 diabetes mellitus with foot ulcer (principal); L97.529 Non-pressure chronic ulcer of other part of left foot with unspecified severity
CPT/HCPCS: 36415; 80048; 85651; 86140

== ENCOUNTER → 2023-07-30 10:57 | Outpatient (BNVA) | payer MEDICAID, SELFPAY | PROVIDERS: PCP Family Medicine; Visit Provider Thoracic Surgery (Cardiothoracic Vascular Surgery) | DX: E11.52 Type 2 diabetes mellitus with diabetic peripheral angiopathy with gangrene (principal); E11.621 Type 2 diabetes mellitus with foot ulcer; L97.421 Non-pressure chronic ulcer of left heel and midfoot limited to breakdown of skin | CPT/HCPCS: 97597 ==

== ENCOUNTER → 2023-08-06 10:24 | Outpatient (BNVA) | payer MEDICAID, SELFPAY | PROVIDERS: PCP Family Medicine; Visit Provider Thoracic Surgery (Cardiothoracic Vascular Surgery) | DX: E11.52 Type 2 diabetes mellitus with diabetic peripheral angiopathy with gangrene (principal); E11.621 Type 2 diabetes mellitus with foot ulcer; L97.421 Non-pressure chronic ulcer of left heel and midfoot limited to breakdown of skin | CPT/HCPCS: 97597 ==

== ENCOUNTER → 2023-08-13 07:44 | Outpatient (BNVA) | payer MEDICAID, SELFPAY | PROVIDERS: PCP Family Medicine; Visit Provider Thoracic Surgery (Cardiothoracic Vascular Surgery) | DX: E11.52 Type 2 diabetes mellitus with diabetic peripheral angiopathy with gangrene (principal); E11.621 Type 2 diabetes mellitus with foot ulcer; L97.421 Non-pressure chronic ulcer of left heel and midfoot limited to breakdown of skin | CPT/HCPCS: 97597; A6197 ==

== ENCOUNTER 2023-09-05 13:54 | Outpatient (CLI) | payer OTHER, SELFPAY ==
--- NOTE | 2023-09-05 14:30 | MR_ITS ---
WS: [id number] MRI LEFT FOOT WITH AND WITHOUT CONTRAST. COMPARISON: 06/18/2021, radiograph 07/23/2023 Multiplanar, multisequence imaging is performed with and without contrast. Partial amputation of the LEFT foot. The entire fifth metatarsal as been surgically resected. Second through fifth toes resected. 50% fourth metatarsal resected. Loss of the normal arch of the foot. Plantar displacement of the tarsal bones. Subchondral cystic gus nges noted in the proximal second and third metatarsals. The fourth metatarsal is very small and atro phic. There is no signal abnormality. Decreased signal on the T1 sequences in the cuboid with postcon trast enhancement suspicious for osteomyelitis. Very subtle area of enhancement in the lateral cuneif orm. Soft tissue ulceration that is draining is along the plantar surface of the foot and in continuity wi th the abnormal signal in the cuboid. There is no focal collection and only intermediate enhancement. MR/MR foot LT wo/w con [id number] IMPRESSION: 1. Soft tissue ulceration along the plantar surface of the foot is in continui ty with the cuboid. Abnormal signal with enhancement in the cuboid consistent w ith osteomyelitis. 2. There is additional very subtle increased enhancement within the lateral cu neiform suspicious for osteomyelitis also. 3. Mild soft tissue edema and enhancement. The greatest soft tissue changes wi thout abscess along the plantar surface of the foot near the cuboid. 4. Extensive prior amputations.
[2023-09-05] MEDS: gadobenate dimeglumine 20 mL vial IV (14:50)
== END 2023-09-05 13:55 | disposition home or self-care (01) ==
LOC: RAD 13:57
PROVIDERS: PCP Family Medicine; Visit Provider Thoracic Surgery (Cardiothoracic Vascular Surgery)
DX: E11.621 Type 2 diabetes mellitus with foot ulcer (principal); L97.509 Non-pressure chronic ulcer of other part of unspecified foot with unspecified severity; L97.529 Non-pressure chronic ulcer of other part of left foot with unspecified severity
CPT/HCPCS: 73720; A9577

== ENCOUNTER 2024-01-27 13:12 | Outpatient (CLI) | payer OTHER, SELFPAY ==
--- NOTE | 2024-01-27 13:19 | XR_ITS ---
WS: [id number] Exam: XR foot LT min 3V* [id number] Date/Time of Exam: 01/27/2024 1:20 PM Reason For Exam: E11.621 - Type 2 diabetes mellitus with foot ulcer Comparison 07/23/2023. Stable appearing areas of bone destruction noted involving the cuboid and the second and third cuneif orm bones. Also stable appearing areas of involvement noted involving the proximal second third and f ourth metatarsals. There are no new areas of acute bone destruction. Soft tissue swelling of the foot . Multiple amputations involve the second through the fifth rays as previously described. Bony sclero sis of the midfoot joints with collapse of the plantar arch may be related to Charcot osteoarthropath y. XR/XR foot LT min 3V* [id number] IMPRESSION: 1. Areas of bone destruction involving the midfoot osseous components appear st able since the last study. No new areas of acute bone destruction identified. 2. Postop changes of multiple amputations as previously noted. 3. Soft tissue edema of the foot. Changes in the midfoot that may reflect Charc ot osteoarthropathy.
[2024-01-27 13:46] LABS: Basophils # 0.1 10^3/uL (0.0-0.1); Basophils % 0.9 %; Eosinophils # 0.2 10^3/uL (0.0-0.8); Eosinophils % 1.4 %; Hematocrit 43.4 % (37-53); Lymphocytes # 2.6 10^3/uL (0.8-4.8); Lymphocytes % 19.7 %; Mean Corpuscular HGB Conc 35.5 g/dL (30-55); Mean Corpuscular Hemoglobin 30.6 pg (27-33); Mean Corpuscular Volume 86.3 fl (82-101); Mean Platelet Volume 10.6 fL (7.4-10.4); Monocytes # 1.1 10^3/uL (0.2-0.9); Monocytes % 8.3 %; Neutrophils # 9.15 10^3/uL (1.8-7.7); Neutrophils % 69.2 %; Nucleated Red Blood Cells % 0 %; Platelet Count 322 10^3/cmm (157-399); Red Blood Count 5.03 10^6/uL (3.85-5.65); Red Cell Distribution Width 12.2 % (12.1-15.1); White Blood Count 13.22 10^3/uL (3.29-11.43)
[2024-01-27 14:11] LABS: Alanine Aminotransferase 13 U/L (0-41); Albumin Level 3.6 g/dL (3.5-5.2); Alkaline Phosphatase 120 U/L (40-130); Anion Gap 18.4 (5-19); Aspartate Amino Transferase 12 U/L (0-40); Blood Urea Nitrogen 14 mg/dL (8-23); C Reactive Protein 15.6 mg/L (0.0-4.9); Calcium 8.6 mg/dL (8.5-10.5); Carbon Dioxide 25 mmol/L (22-29); Chloride 93 mmol/L (98-107); Globulin 4.3 g/dL (1.3-4.6); Glucose 487 mg/dL (65-115); Osmolality Calculated 296 mOsm/kg (285-295); Potassium 4.4 mmol/L (3.5-5.1); Sodium 132 mmol/L (136-145); Total Bilirubin 0.3 mg/dL (0.15-1.2); Total Protein 7.9 g/dL (6.6-8.7)
[2024-01-27 14:15] LABS: Estmated Average Glucose 312; Hemoglobin A1C 12.5 % (4.0-6.0)
[2024-01-27 14:37] LABS: Erythrocyte Sedimentation Rate 83 mm/hr (0-10)
[2024-01-27 16:54] LABS: Prealbumin 21.7 mg/dL (20-40)
== END 2024-01-27 13:13 | disposition home or self-care (01) ==
LOC: LAB 13:14
PROVIDERS: Visit Provider Thoracic Surgery (Cardiothoracic Vascular Surgery)
DX: E11.621 Type 2 diabetes mellitus with foot ulcer (principal); R52 Pain, unspecified; L97.426 Non-pressure chronic ulcer of left heel and midfoot with bone involvement without evidence of necrosis
CPT/HCPCS: 36415; 73630; 80053; 83036; 84134; 85025; 85651; 86140

== ENCOUNTER → 2024-02-05 10:10 | Outpatient (BNVA) | payer OTHER, SELFPAY | PROVIDERS: Visit Provider Thoracic Surgery (Cardiothoracic Vascular Surgery) | DX: E11.621 Type 2 diabetes mellitus with foot ulcer (principal); L97.509 Non-pressure chronic ulcer of other part of unspecified foot with unspecified severity | CPT/HCPCS: 87070; 87077; 87176; 87186; 87205 ==

== ENCOUNTER 2024-02-20 12:45 | Outpatient (CLI) | payer OTHER, SELFPAY ==
--- NOTE | 2024-02-20 12:45 | USCV_ITS ---
Marquis Ballard Age: 63 Gender: M : 1960 Exam Date: 02/20/2024 13:34 Ordering Phys: Marquis Tabares MD (Andy) ([email or web address]) Technologist: Navarro Newberry [place] [facility] [place]: muscle cramps Risk Factors: Previous Vascular Surgery: Stent in left ankle-could not perform LYNNETTE RIGHT LEFT BP: 162.0 / 83.00 BP: 164.0/ 83.00 0 0 Waveform Velocity (cm/s) Velocity (cm/s) Waveform Iliac Prox 76.0 Biphasic Iliac Mid 71.5 Biphasic Iliac Distal 81.1 Biphasic INBOUND SALES REPRESENTATIVE 100.0 Biphasic SFA Prox 126.0 Biphasic SFA Mid 120.0 Biphasic SFA Dist 76.0 Biphasic POP Biphasic 116.0 DIRECTOR OF THERAPY SERVICES 55.0 Monophasic DPA 85.0 Monophasic FINDINGS Mild to moderate diffuse plaque in the iliac and femoral arteries on the left side. And popliteal arteries on the left side. Normal Doppler flow velocities in the above-mentioned identified vessels. CONCLUSIONS 1. Patent iliac, femoral, popliteal and infrapopliteal vessels on the left side. 2. Mild to moderate diffuse plaques are noted in the iliac, femoral and popliteal arteries on the left side. 3. Normal Doppler velocities may suggest no significant arterial obstruction. Because of the stent in the ankle vessels, LYNNETTE was not performed Compared to the study from 09/26/2020, there is a significant improvement in the posterior tibial artery blood flow, based on the Doppler flow signal Dr Chuyita Sotelo MD [facility] (Electronically Signed) Final Date: 23 February 2024 21:10 S
== END 2024-02-20 12:51 | disposition home or self-care (01) ==
PROVIDERS: Visit Provider Thoracic Surgery (Cardiothoracic Vascular Surgery)
DX: I70.201 Unspecified atherosclerosis of native arteries of extremities, right leg (principal); I70.8 Atherosclerosis of other arteries; E11.621 Type 2 diabetes mellitus with foot ulcer; L97.529 Non-pressure chronic ulcer of other part of left foot with unspecified severity
CPT/HCPCS: 87070; 87176; 87205; 93926

== ENCOUNTER → 2024-03-10 14:50 | Outpatient (BNVA) | payer OTHER, SELFPAY | DX: E11.65 Type 2 diabetes mellitus with hyperglycemia (principal); E78.5 Hyperlipidemia, unspecified; Z79.4 Long term (current) use of insulin | CPT/HCPCS: 80053; 80061; 83036 ==

== ENCOUNTER → 2024-06-14 11:03 | Outpatient (BNVA) | payer OTHER, SELFPAY | PROVIDERS: PCP Family Medicine; Visit Provider Family Medicine | DX: I10 Essential (primary) hypertension (principal); E11.65 Type 2 diabetes mellitus with hyperglycemia; Z79.4 Long term (current) use of insulin; Z12.5 Encounter for screening for malignant neoplasm of prostate | CPT/HCPCS: 80053; G0103 ==

== ENCOUNTER 2024-06-25 10:33 | Outpatient (CLI) | payer OTHER, SELFPAY ==
[2024-06-25 11:59] LABS: Estmated Average Glucose 286; Hemoglobin A1C 11.6 % (4.0-6.0)
[2024-06-25 12:04] LABS: Alanine Aminotransferase 9 U/L (0-41); Albumin Level 3.4 g/dL (3.5-5.2); Alkaline Phosphatase 91 U/L (40-130); Anion Gap 14.8 (5-19); Aspartate Amino Transferase 16 U/L (0-40); Blood Urea Nitrogen 25 mg/dL (8-23); Calcium 9.4 mg/dL (8.5-10.5); Carbon Dioxide 28 mmol/L (22-29); Chloride 95 mmol/L (98-107); Chol HDL Ratio 7.89 mg/dL (1.0-5.00); Cholesterol 213 mg/dL (0-200); Globulin 3.7 g/dL (1.3-4.6); Glucose 457 mg/dL (65-115); HDL Cholesterol 27 mg/dL (60-100); LDL Cholesterol Calculated 116 mg/dL (50-129); Osmolality Calculated 300 mOsm/kg (285-295); Potassium 4.8 mmol/L (3.5-5.1); Sodium 133 mmol/L (136-145); Total Bilirubin 0.2 mg/dL (0.15-1.2); Total Protein 7.1 g/dL (6.6-8.7); Triglycerides 349 mg/dL (0-150)
[2024-06-25 12:30] LABS: Creatinine Urine, Random 40 mg/dL (39-259)
[2024-06-25 12:42] LABS: Microalbum Creatinine Ratio Ur 3975 mg/dL (0-20); Microalbumin Random Urine 159 ug/dL (0-20)
== END 2024-06-25 10:34 | disposition home or self-care (01) ==
LOC: LAB 10:36
PROVIDERS: PCP Family Medicine; Visit Provider Internal Medicine
DX: E11.65 Type 2 diabetes mellitus with hyperglycemia (principal); Z79.4 Long term (current) use of insulin
CPT/HCPCS: 36415; 80053; 80061; 82044; 83036

== ENCOUNTER 2024-09-07 11:20 | Outpatient (CLI) | payer OTHER, SELFPAY ==
[2024-07-07 13:46] VITALS: BMI 27.3
[2024-09-07 12:54] LABS: Estmated Average Glucose 298
[2024-09-07 13:02] LABS: Creatinine Urine, Random 57 mg/dL (39-259)
[2024-09-07 13:08] LABS: Alanine Aminotransferase 9 U/L (0-41); Albumin Level 3.3 g/dL (3.5-5.2); Alkaline Phosphatase 104 U/L (40-130); Anion Gap 16.3 (5-19); Aspartate Amino Transferase 9 U/L (0-40); Blood Urea Nitrogen 17 mg/dL (8-23); Calcium 9.7 mg/dL (8.5-10.5); Carbon Dioxide 28 mmol/L (22-29); Chloride 91 mmol/L (98-107); Chol HDL Ratio 8.88 mg/dL (1.0-5.00); Cholesterol 222 mg/dL (0-200); Globulin 3.6 g/dL (1.3-4.6); Glomerular Filtration Rate 67.4 mL/min (90-130); Glucose 436 mg/dL (65-115); HDL Cholesterol 25 mg/dL (60-100); Osmolality Calculated 290 mOsm/kg (285-295); Potassium 5.3 mmol/L (3.5-5.1); Sodium 130 mmol/L (136-145); Total Bilirubin 0.2 mg/dL (0.15-1.2); Total Protein 6.9 g/dL (6.6-8.7); Triglycerides 576 mg/dL (0-150)
[2024-09-07 13:19] LABS: Microalbum Creatinine Ratio Ur 3579 mg/dL (0-20); Microalbumin Random Urine 204 ug/dL (0-20)
[2024-09-07 13:32] LABS: LDL Cholesterol Direct 123 mg/dL (0-100)
[2024-09-08 11:40] LABS: C-Peptide 5.74 ng/mL (0.80-3.85)
== END 2024-09-07 11:21 | disposition home or self-care (01) ==
PROVIDERS: Internal Medicine; PCP Family Medicine
DX: E11.65 Type 2 diabetes mellitus with hyperglycemia (principal); R97.20 Elevated prostate specific antigen [PSA]; Z79.4 Long term (current) use of insulin
CPT/HCPCS: 36415; 80053; 80061; 82044; 83036; 83721; 84153; 84681; 86337; 86341

== ENCOUNTER 2024-09-15 13:11 | Outpatient (CLI) | payer OTHER, MEDICAID, SELFPAY ==
[2024-07-07 13:46] VITALS: BMI 27.3
--- NOTE | 2024-09-15 13:30 | CTR_ITS ---
PROCEDURE INFORMATION: Exam: CTA Abdominal Aorta and Bilateral Lower Extremities (Run-off) With Contrast Exam date and time: 09/15/2024 2:10 PM Age: 63 years old Clinical indication: Condition or disease; Peripheral vascular disease and other: Right small toe ulcer; Prior surgery; Surgery date: 6+ months; Surgery type: Left hip, left leg angioplasty; Non healing ulcer right foot, right small toe x 3 weeks; Additional info: Non healing ulcer right foot; Pad TECHNIQUE: Imaging protocol: Computed tomographic angiography of the of the abdominal aorta, pelvis and bilateral lower extremities with contrast. 3D rendering (Not supervised by radiologist): MIP and/or 3D reconstructed images were created by the technologist. Radiation optimization: All CT scans at this facility use at least one of these dose optimization techniques: automated exposure control; mA and/or kV adjustment per patient size (includes targeted exams where dose is matched to clinical indication); or iterative reconstruction. Contrast material: OMNIPAQUE 350; Contrast volume: 125 ml; Contrast route: INTRAVENOUS (IV); COMPARISON: CT angio abd aorta runof [id number] 05/16/2022 1:17 PM RADIATION DOSE METRICS: Total DLP (mGy-cm): 1570.65 FINDINGS: Aorta: No aortic aneurysm. No aortic dissection. Celiac trunk and mesenteric arteries: No occlusion or significant stenosis. Renal arteries: No occlusion or significant stenosis. Right iliac arteries: The right common iliac and external iliac arteries are patent. Right femoral/popliteal arteries: The right common femoral artery is patent. There is severe stenosis in the proximal aspect of the right superficial femoral artery with occlusion of the right superficial femoral artery on (series 5, image 491). The vessel reconstitutes distally. There is severe stenosis in the distal right superficial femoral artery. There is near-complete occlusion of the right popliteal artery. Right infrapopliteal arteries: The right anterior tibial and peroneal arteries are opacified down to the level of the ankle. The right posterior tibial artery is occluded at its origin. Left iliac arteries: The left common iliac and external iliac arteries are patent. Left femoral/popliteal arteries: The left common femoral artery is patent. There is severe stenosis in the distal left superficial femoral artery. The left popliteal artery is patent. Left infrapopliteal arteries: There is occlusion of the left peroneal artery proximally. The left anterior tibial artery is opacified down to the level of the ankle. The left posterior tibial artery is occluded at its origin. Liver: No mass. Gallbladder and biliary ducts: Unremarkable. No calcified stones. No ductal dilation. Pancreas: Unremarkable. No mass. No ductal dilation. Spleen: Normal. No splenomegaly. Adrenal glands: Normal. No mass. Kidneys and ureters: Normal. No mass. Stomach and bowel: Unremarkable. No obstruction. No mucosal thickening. Appendix: No evidence of appendicitis. Urinary bladder: Unremarkable. No mass. Reproductive: Unremarkable as visualized. Intraperitoneal space: Unremarkable. No free air. No significant fluid collection. Lymph nodes: No lymphadenopathy. Bones/joints: Prior amputation of the left 2nd proximal and 3rd proximal phalanges and amputation of the distal 4th metatarsal and amputation of the entire 5th metatarsal. Postsurgical changes with cortical irregularity of the cuboid and base of the 4th metatarsal have progressed from the prior examination. Soft tissues: Unremarkable. CT/CT angio abd aorta runof [id number] IMPRESSION: 1. The right common iliac and external iliac arteries are patent. 2. The right common femoral artery is patent. There is severe stenosis in the proximal aspect of the right superficial femoral artery with occlusion of the right superficial femoral artery on (series 5, image 491). The vessel reconstitutes distally. There is severe stenosis in the distal right superficial femoral artery. There is near-complete occlusion of the right popliteal artery. 3. The right anterior tibial and peroneal arteries are opacified down to the level of the ankle. The right posterior tibial artery is occluded at its origin. 4. The left common iliac and external iliac arteries are patent. 5. The left common femoral artery is patent. There is severe stenosis in the distal left superficial femoral artery. The left popliteal artery is patent. 6. There is occlusion of the left peroneal artery proximally. The left anterior tibial artery is opacified down to the level of the ankle. The left posterior tibial artery is occluded at its origin. 7. Prior amputation of the left 2nd proximal and 3rd proximal phalanges and amputation of the distal 4th metatarsal and amputation of the entire 5th metatarsal. Postsurgical changes with cortical irregularity of the cuboid and base of the 4th metatarsal have progressed from the prior examination. Osteomyelitis can not be excluded and clinical correlation is recommended.
[2024-09-15] MEDS: iohexol 350 mg/mL 500 mL Btl (per mL) IV (14:20)
== END 2024-09-15 13:12 | disposition home or self-care (01) ==
PROVIDERS: PCP Family Medicine
DX: E11.621 Type 2 diabetes mellitus with foot ulcer (principal); E11.51 Type 2 diabetes mellitus with diabetic peripheral angiopathy without gangrene; L97.519 Non-pressure chronic ulcer of other part of right foot with unspecified severity; I77.1 Stricture of artery; Z89.431 Acquired absence of right foot
CPT/HCPCS: 75635

== ENCOUNTER → 2024-10-01 10:33 | Outpatient (BNVA) | payer OTHER, SELFPAY ==
[2024-09-20 11:24] VITALS: BMI 27.3
== END ==
PROVIDERS: PCP Family Medicine; Visit Provider Internal Medicine
DX: R58 Hemorrhage, not elsewhere classified (principal); I73.9 Peripheral vascular disease, unspecified; I10 Essential (primary) hypertension
CPT/HCPCS: 36415; 80048; 85025; 85610

== ENCOUNTER 2024-10-12 12:15 | Observation (INO) | payer OTHER, MEDICAID, SELFPAY ==
[2024-09-20 11:24] VITALS: BMI 27.3
--- NOTE | 2024-10-11 10:03 | PC.NURSE ---
unable to reach patient for pre cath instructions. no voicemail available. patient needs to come in at 0600 on 10/12/24 for pre cath hydration.
[2024-10-12] VITALS (39 sets, daily range): BP systolic 151–202; BP diastolic 78–97; PULSE 86–107; RESP 16–31; TEMP 36.3–36.6; O2SAT 90–100; BMI 27.1
--- NOTE | 2024-10-12 06:04 | XACV_ITS ---
Wt: 83 kg BSA: 2.03 m2 Any Known Allergies: Sulfa Gender: Male : 1960 Exam Type: Invasive Peripheral Vascular Procedure(s): Procedure Description: Diagnostic procedure Procedure Description: Peripheral Cath Diagnostic Procedure Procedure Description: Abdominal aortic angiography Procedure Description: Lower extremities' angiography Procedure Description: Peripheral vascular Intervention Procedure Description: PV Balloon Procedure Description: PV Stent Procedure Description: Miscellaneous Procedure Description: ACT Exam Priority: Routine Abdominal Diagnostic Findings Distal abdominal aorta: Patent. Lower Extremity Diagnostic Findings INDICATION: Non-healing right foot wound/ Severe peripheral artery disease. Right Proximal to Mid-longitudinal Superficial Femoral Artery: 100% stenosis. Right distal SFA to Popliteal Artery: 80-90% stenosis. Right lower extremity: Right common iliac artery is patent. Right external iliac artery is patent. Right internal iliac artery is patent. Right common femoral arteries. Right SFA is totally occluded in the proximal segment. It reconstitutes via collaterals in the distal vessel. Right profunda artery is patent. Right distal SFA to popliteal artery has severe calcified stenosis. Right popliteal artery has 80% stenosis. Below the knee patient has single-vessel runoff with patent anterior tibial artery. TP trunk is subtotally occluded with total occlusion of popliteal and peroneal artery with reconstitution via collaterals.. Lower Extremity Interventional Findings Right proximal to Mid-longitudinal Superficial Femoral Artery: 100% stenosis treated with AB [place] 35 BATTERY WRECKER OPERATOR Catheter [id number], Omnilink Stent 6.0 mmx 59 mm, AB ABSOLUTE PRO SE STENT [id number], and AB [place] 35 OTW [id number]. Right Mid-longitudinal Popliteal Artery: 80% stenosis treated with AB [place] 35 OTW [id number]. Procedure detail: After diagnostic images were obtained, patient was anticoagulated with heparin. Long sheath was placed up and over from left common femoral artery access to right external iliac artery. Using Glidewire and seeker support catheter, totally occluded SFA was crossed and wire was put in TP trunk. We performed balloon angioplasty of SFA with a 6.0 x 250 mm [place] balloon. This was followed by placement of 6.0 x 59 mm stent in the distal SFA. Mid SFA was treated with 6.0 x 100 mm absolute Pro stent. We postdilated distal SFA stents with 7.0 x 40 mm balloon. We then performed balloon angioplasty of popliteal artery with 5.0 x 40 mm [place] balloon. At this time final angiogram was performed that showed excellent vessel expansion with brisk flow and single-vessel runoff of the anterior tibial artery. Patient left Extras Casting Director in a stable condition. Conclusions Totally occluded proximal to mid SFA with severe stenosis of distal SFA and popliteal artery. Status post successful revascularization with 2 stents placed in proximal to mid SFA and distal SFA and balloon angioplasty of popliteal artery.. Right Superficial Femoral Artery was treated with two Balloon, Stents. Recommendations Dual antiplatelet therapy with aspirin and plavix. High intensity statin therapy. Outpatient cardiology follow up in 2 weeks. Hemodynamic Data Phase:Rest AO : 144.0 / 58.0 ( 92.0 ) @ 12:21:00 PM Access Site Site: Left Femoral artery Sheath Size: 6 Fr Hemost... Method: Suture Hemost... Success: Successful Procedure Details Findings Procedure Consent Obtained. Admit Source: Out Patient. Pre-Procedure Time Out. Identified patient by full name and date of as verbalized by the patient/guarantor. Does the consent match the physician's order: Yes. Accurate & Complete Informed Consent: Yes. Inpatient/Outpatient History & Physical on Chart: Yes. If H&P is completed, is and addenduem needed: No; If yes, is the addendum complete: N/A. Visualize and Verify Site with Patient/Guarantor: N/A. Relevant Radiology Images available: N/A. The risks, benefits, and alternatives of sedation and/or procedure were discussed by physician. The patient agrees to continue. Procedure started. Correct patient, site and procedure confirmed by cath team. Pre op diagnosis; Non healing wound; PVD. PERRLA. Strong, equal hand legal biller bilaterally. Lungs clear x 5 lobes. IV Site on Arrival: 20 gauge in the left anticubital. IV Fluids: 0.9% NaCl at KVO. 500 mL infused prior to operations label clerk. Pre Procedural Pulses: bilateral posterior tibial was Doppled. Pre Procedural Pulses: bilateral dorsalis pedis was Doppled. Pre Procedural Pulses: bilateral radial was 3+. Oxygen started at 3liters/min via nasal canula. bilateral groins was prepped with chloroprep then draped in the usual sterile fashion. Physician notified. Baseline sample Acquired. HR: 90 BPM. Physician arrived. Family updated by MD prior to the start of the procedure. Physician scrubbed in. Immediate Pre-Procedure Time Out. Correct Patient: Yes; Correct Procedure: Yes; Correct Site: Yes; Correct Patient Position: Yes; Correct Supplies: Yes; Dried Flammable Prep: Yes; Blood Products Available: N/A;. Lidocaine 1% infiltrated to the left groin. Arterial access obtained. A 5FrFr UF catheter in over wire. Abdominal aortogram with runoff performed in AP @ 10 mL/sec for a total of 30 mL. Glidewire inserted and advanced down the right SFA. UF catheter out over the wire. Sheath upsized to a 6 Fr. Right common femoral selected and arteriogram with runoff performed @ 10 mL/sec for a total of 30 mL. Seeker inserted. Glidewire/Seeker advanced to the popliteal, Right. Wire out. Hand injection performed throught the seeker catheter. Glidewire reinserted. Wire in the Peroneal, Right. Seeker catheter removed. Inflation number : 1 A [place] 35 BATTERY WRECKER OPERATOR Catheter [id number] was prepped and advanced across the Superficial Femoral, Right , then inflated to 6 RUMA for 1:31 seconds. Inflation number: 2 The [employer] [place] 35 BATTERY WRECKER OPERATOR Catheter [id number] was reinflated across the Superficial Femoral, Right, to 6 RUMA for 1:35 seconds. Balloon out. Right common femoral selected and arteriogram with runoff performed @ 10 mL/sec for a total of 30 mL. Inflation number : 1 A AB [place] 35 OTW [id number] was prepped and advanced across the Popliteal, Right , then inflated to 6 RUMA for 1:20 seconds. Balloon out. Inflation Number : 3 A Omnilink Stent 6.0 mmx 59 mm -Lot Number# [id number] EXP 07/06/2027 was prepped and advanced across the Superficial Femoral, Right. The stent was deployed at 11 RUMA for 1:03 seconds. Stent deliver system out over the wire. ABSOLUTE PRO SE STENT [id number] EXP 11/04/2026 was deployed across Superficial Femoral, Right. Inflation number : 2 A AB [place] 35 OTW [id number] was prepped and advanced across the Popliteal, Right , then inflated to 10 RUMA for 1:01 seconds. Inflation number: 4 The AB [place] 35 OTW [id number] was reinflated across the Superficial Femoral, Right, to 6 RUMA for 0:33 seconds. Inflation number: 5 The AB [place] 35 OTW [id number] was reinflated across the Superficial Femoral, Right, to 10 RUMA for 0:34 seconds. Inflation number: 6 The AB [place] 35 OTW [id number] was reinflated across the Superficial Femoral, Right, to 10 RUMA for 0:33 seconds. Balloon out. Right common femoral selected and arteriogram with runoff performed @ 10 mL/sec for a total of 30 mL. 300 cm runthrough inserted and advanced to the PT, Right. Wire out. Sheath to KVO. ACT drawn. Results 216 seconds. Therapeutic limits - pre-heparin administration 90-150 seconds and monitoring heparin during a vascular procedure >250 seconds. Sheath exchange for a 11 cm 6 FR sheath. A Left femoral angiogram was performed to determine safe placement of closure device. A Suture was successful obtaining hemostatsis at the Left Femoral artery insertion site. Sheath(s) sutured into position with 2-0 silk and sterile 4x4's and Op-site applied over the site. No oozing or signs and symptoms of hematoma noted. Arterial sheath flushed and connected to tranducer and pressure bag with heparinized saline. Post Procedure: Pulses reassessed and unchanged. PERRLA. Strong, equal hand legal biller bilaterally. No VTE prophylaxis required. Medication's Wasted: Lidocaine 1% = 10 ml , Heparin = 1000 units , Fentanyl = 75 mcg. Total IV fluids: 85 mL. Fluoro: 21:05. Contrast type used: Visipaque 320 mgI/mL, 200 mL bottle. [id number]. Post-op diagnosis: Severe pad; s/p right sfa stents and popliteal ballooning. Complications: None. Estimated blood loss: 5mL-10mL. Responsiveness - Normal response to verbal stimuli; alert and oriented, PERRLA. Airway - Unaffected, no intervention required; spontaneous ventilation. Circulation: W/N/L, pulses unchanged. Nausea/Vomiting: No. Procedure completed. Vital chart was stopped. Patient transferred by bed to ICU. Procedure Medications Start: 9:55 AM Stop: 9:55 AM Medication: Versed Amount: 1 mg Route: I.V. Start: 9:55 AM Stop: 9:55 AM Medication: Fentanyl Amount: 50 mcg Route: I.V. Start: 10:22 AM Stop: 10:22 AM Medication: Versed 1 mg and Fentanyl 25 mcg Amount: 1 Route: I.V. Start: 10:24 AM Stop: 10:24 AM Medication: Heparin Amount: 5000 units Route: I.V. Start: 10:37 AM Stop: 10:37 AM Medication: Heparin Amount: 2000 units Route: I.V. Start: 10:40 AM Stop: 10:40 AM Medication: Fentanyl Amount: 25 mcg Route: I.V. Start: 11:10 AM Stop: 11:10 AM Medication: Fentanyl Amount: 25 mcg Route: I.V. Start: 11:30 AM Stop: 11:30 AM Medication: Heparin Amount: 1000 units Route: I.V. I, the attending physician, have reviewed and verified all procedure medications. Yes, all medications given per verbal order History/Risk Factors Hypertension: Yes Dyslipidemia: Yes Peripheral Arterial Disease (PAD): Yes Obesity: No Renal Disease: No Tobacco Use: Current/Recent(w/in 1 year) Prior Interventions PCI: No CABG: No Valve Surgery: No Report Signatures Finalized by John Toro MD on 10/22/2024 01:47 PM
[2024-10-12 06:37] LABS: Hematocrit 38.8 % (37-53); Hemoglobin 13.50 g/dL (11.27-16.99); Mean Corpuscular HGB Conc 34.8 g/dL (30-55); Mean Corpuscular Hemoglobin 29.5 pg (27-33); Mean Corpuscular Volume 84.9 fl (82-101); Nucleated Red Blood Cells % 0 %; Platelet Count 292 10^3/cmm (157-399); Red Blood Count 4.57 10^6/uL (3.85-5.65); White Blood Count 12.12 10^3/uL (3.29-11.43)
[2024-10-12 07:02] LABS: Anion Gap 15.4 (5-19); Blood Urea Nitrogen 24 mg/dL (8-23); Calcium 9.3 mg/dL (8.5-10.5); Carbon Dioxide 29 mmol/L (22-29); Chloride 96 mmol/L (98-107); Creatinine Clr Calc Pharmacy 57.1541; Glucose 263 mg/dL (65-115); Osmolality Calculated 295 mOsm/kg (285-295); Potassium 4.4 mmol/L (3.5-5.1); Sodium 136 mmol/L (136-145)
--- NOTE | 2024-10-12 09:53 | W.PM.OPSUD ---
Surgery/Procedure H&P Update DATE OF PROCEDURE: October 12, 2024 DATE H&P PERFORMED: 10/01/24 H&P UPDATE INFORMATION: I have reviewed H&P completed within last 30 days, I have examined patient prior to procedure and No changes to prior documentation PREOP DIAGNOSIS: Non healing right foot wound/ Severe peripheral artery disease PRIMARY INDICATION FOR PROCEDURE: Non healing right foot wound/ Severe peripheral artery disease PLANNED PROCEDURE: Operation Date: 10/12/24 10:00 Proposed Procedures p Peripheral Diagnostic - Periph Angio Bilat(Bilateral) - John Toro M.D Possible percutaneous intervention PATIENT REASSESSED PRIOR TO SEDATION, WITH NO CHANGE NOTED: Yes PHYSICAL EXAM: alert, oriented x 3, clear to auscultation bilaterally and regular rate & rhythm AIRWAY EVAL/ANESTHESIA PLAN: normal airway, ASA III, Local Anesthesia, Risks, benefits & alternatives of sedation and/or procedure discussed and Patient agrees to continue as planned ADDITIONAL INFORMATION: Moderate sedation
--- NOTE | 2024-10-12 11:42 | P.PCN_ITS ---
Procedure Note: Date of procedure: 10/12/24 Pre-procedure diagnosis: Non- healing right foot wound/ Severe peripheral artery disease Post-procedure diagnosis: other (S/p successful revascularization of right lower extremity with 2 stents in SFA and balloon angioplasty of popliteal artery) Procedure: Total occlusion of proximal to distal SFA status post successful revascularization with balloon angioplasty and 2 stents. Severe stenosis of the popliteal artery status post balloon angioplasty. Below the knee patient has single-vessel runoff to the foot with a patent anterior tibial artery. Posterior tibial artery and peroneal arteries reconstitute close to the ankle via collaterals. Dual antiplatelet therapy Continue IV hydration Performing Provider: John Toro Complications: None Condition: stable Disposition: floor Coding Level of Care Code Acute Code for Walterg Fwd
[2024-10-12] MEDS: hyDRALAzine 20 mg/mL INJ 1 mL 10 MG IVP ×2 (12:51→15:17)
--- NOTE | 2024-10-12 13:17 | PC.NURSE ---
REceived patient from r&d lab technician staff at 1200. Patient is alert. Oriented to person, place, time, and situation. BP: 183/94, HR: 88, SPO2: 93%. Temp: 97.6. SHeath SIte to left groin is unremarkable. No signs of internal or external bleeding. Dressing in place. Connected to pressure bag. Right foot is warm to the touch, with an easily found faint pulse. Cap refill <3 seconds. Right foot has a regular strength pulse. Warm to the touch, cap refill <3 seconds. Nurse educated patient on need to lay flat, PTT in 2 hours, and possible removing the sheath at that point. And then another 6 hours flat. Patient is hypertensive. Was NPO and missed metoprolol this morning. Alerted Dr Toro. Received orders for hydralazine and amlodipine.
[2024-10-12 14:49] LABS: Partial Thromboplastin Time 45.5 SECONDS (23.9-36.7)
--- NOTE | 2024-10-12 15:10 | PC.NURSE ---
PTT resulted: 45.5 Drawn at 1400. NUrse alerted Dr toro, valentinay to remove sheath at 1530.....Per policy systolic BP should be below 180, systolic below 90 before pulling sheath. For the past hour and a half, the blood pressures have been below this range, but near it. Though within policy, nurse would feel more comfortable if we tried to reduce the blood pressure a little more before sheath pull and informed Dr Toro of this. Received order for 10mg of hydralazine.
[2024-10-12] MEDS: fentaNYL 50 mcg/mL INJ 2mL IVP (16:05)
--- NOTE | 2024-10-12 17:01 | PC.NURSE ---
Sheath Pull: Patient educate don reportable signs/symptoms and need to lay flat for 6 hours. Fentanyl administered. PRN Atropine at bedside. Sheath removed. Pressure held for 25 minutes. 10mL or less of external blood loss. No hematoma detected. Applied gauze and transparent dressing. WIll continue to monitor.
--- NOTE | 2024-10-12 18:06 | PC.NURSE ---
Shift Sumary: Uneventful shift. Received form cathodic protection technician at 1200. 2 stents and 1 baloon to right leg. Sheath pulled at 1620. Started 6 hour bedrest at 1700. Sheath pull was uneventful. Bedrest is up at 2300 on 10/13/2024
--- NOTE | 2024-10-12 21:50 | PC.NURSE ---
Report called to Leda in CSU, Patient transported to CSU at [id number]
[2024-10-13 00:22] VITALS: BP 143/74; PULSE 100; RESP 20; TEMP 36.6; O2SAT 94
[2024-10-13 02:48] LABS: Hematocrit 36.0 % (37-53); Hemoglobin 12.40 g/dL (11.27-16.99); Mean Corpuscular HGB Conc 34.4 g/dL (30-55); Mean Corpuscular Hemoglobin 29.2 pg (27-33); Mean Corpuscular Volume 84.7 fl (82-101); Nucleated Red Blood Cells % 0 %; Platelet Count 261 10^3/cmm (157-399); Red Blood Count 4.25 10^6/uL (3.85-5.65); White Blood Count 11.45 10^3/uL (3.29-11.43)
[2024-10-13 03:09] LABS: Anion Gap 14.2 (5-19); Blood Urea Nitrogen 21 mg/dL (8-23); Calcium 8.8 mg/dL (8.5-10.5); Carbon Dioxide 26 mmol/L (22-29); Chloride 101 mmol/L (98-107); Creatinine Clr Calc Pharmacy 67.3181; Glucose 267 mg/dL (65-115); Osmolality Calculated 296 mOsm/kg (285-295); Potassium 4.2 mmol/L (3.5-5.1); Sodium 137 mmol/L (136-145)
[2024-10-13 06:00] VITALS: PULSE 102
--- NOTE | 2024-10-13 07:36 | P.DS_ITS ---
<Statement entered by John Toro M.D - 10/17/24 13:34> Patient was cared for in conjunction with an advanced practice practitioner.? I reviewed the chart and all pertinent data including imaging, telemetry, and laboratory results.? I discussed the patient in detail with the advanced practice practitioner.? Please see their note for complete discharge summary, testing results and agreed upon plan of care for the patient. Discharge Providers Date of Admission: 10/12/24 12:15 Date of Discharge: October 13, 2024 Attending Provider at Admission: John Toro M.D Attending Provider at Discharge: John Toro M.D Primary Care Provider: Juany Guajardo DO Reason for Visit Reason for Visit: I73.9 Brief History: 63-year-old man with past medical histor y of uncontrolled diabetes, current smoking, peripheral artery disease who has been referred by wound care clinic as has right fifth toe ulcer. CTA demonstrating severe peripheral artery disease. 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 Blood pressure is controlled. No significant CAD history. Hospital Course Hospital Course He was brought in for peripheral angiogram yesterday using a left femoral approach revealing total occlusion of the proximal to distal SFA treated with 2 stents and balloon angioplasty, the severe stenosis of the popliteal artery was treated with balloon angioplasty. Below the knee he has single-vessel runoff to the foot with a patent anterior tibial artery. Posterior tibial and peroneal reconstitute close to the ankle via collaterals. Will continue aspirin Plavix. He has been ambulating to the bathroom this morning without difficulty, no ellie mallory noted at the left femoral cath site. Creatinine 1.2 this morning. Will have him hold metformin and resume Friday. Follow-up with cardiology clinic in 10 days. Physical Exam Const: COMMON NORMALS: no acute distress and patient oriented x3 GENERAL APPEARANCE: cooperative ORIENTATION/CONSCIOUSNESS: Yes awake, Yes oriented to person, Yes oriented to place and Yes oriented to time Chest: COMMONS NORMALS: normal inspection of the chest and normal palpation of entire chest wall CHEST: Yes Symmetrical chest wall rise Resp: COMMON NORMALS: normal respiratory effort, No retractions, No use of accessory muscles and clear to auscultation bilaterally AUSCULTATION: clear to auscultation bilaterally Cardio: COMMON NORMALS: regular rate, regular rhythm, S1 normal heart sound present, S2 normal heart sound present, No gallops present (Cardio), No clicks present (Cardio), No murmurs present (Cardio) and No rub (Cardio) RATE: regular rate RHYTHM: regular rhythm HEART SOUNDS: S1 normal heart sound present and S2 normal heart sound present PERIPHERAL PULSES: radial pulses present positive right 2+ and femoral pulses present positive right 2+ Neuro: COMMON NORMALS: patient oriented x3 and moves all extremities SENSORIUM/ORIENTATION: Yes oriented to person, Yes oriented to place and Yes oriented to time Skin: WOUNDS: Yes surgical site (no hematoma palpable) Details: no odor Discharge Data Studies Completed and Pending Pending at discharge Category Date Time Status HAND TENNIS BALL COVERER request for service Routine Exams 10/12/24 06:04 Taken Laboratory Results WBC 11.45 10^3/uL (3.29-11.43) H 10/13/24 02:37 RBC 4.25 10^6/uL (3.85-5.65) 10/13/24 02:37 Hgb 12.40 g/dL (11.27-16.99) 10/13/24 02:37 Hct 36.0 % (37-53) L 10/13/24 02:37 MCV 84.7 fl (82-101) 10/13/24 02:37 MCH 29.2 pg (27-33) 10/13/24 02:37 MCHC 34.4 g/dL (30-55) 10/13/24 02:37 RDW 12.4 % (12.1-15.1) 10/13/24 02:37 Plt Count 261 10^3/cmm (157-399) 10/13/24 02:37 MPV 10.2 fL (7.4-10.4) 10/13/24 02:37 Neut % (Auto) 72.1 % 10/13/24 02:37 Lymph % (Auto) 14.8 % 10/13/24 02:37 [place] % (Auto) 10.7 % 10/13/24 02:37 Eos % (Auto) 1.4 % 10/13/24 02:37 Baso % (Auto) 0.7 % 10/13/24 02:37 Neut # (Auto) 8.25 10^3/uL (1.8-7.7) H 10/13/24 02:37 Lymph # (Auto) 1.7 10^3/uL (0.8-4.8) 10/13/24 02:37 [place] # (Auto) 1.2 10^3/uL (0.2-0.9) H 10/13/24 02:37 Eos # (Auto) 0.2 10^3/uL (0.0-0.8) 10/13/24 02:37 Baso # (Auto) 0.1 10^3/uL (0.0-0.1) 10/13/24 02:37 Nucleated RBC % (auto) 0 % 10/13/24 02:37 Nucleated RBCs # 0.0 /100WBC 10/13/24 02:37 APTT 45.5 SECONDS (23.9-36.7) H 10/12/24 14:09 Sodium 137 mmol/L (136-145) 10/13/24 02:37 Potassium 4.2 mmol/L (3.5-5.1) 10/13/24 02:37 Chloride 101 mmol/L (98-107) 10/13/24 02:37 Carbon Dioxide 26 mmol/L (22-29) 10/13/24 02:37 Anion Gap 14.2 (5-19) 10/13/24 02:37 BUN 21 mg/dL (8-23) 10/13/24 02:37 Creatinine 1.2 mg/dL (0.7-1.2) 10/13/24 02:37 GFR Calculation 61.0 mL/min (90-130) L 10/13/24 02:37 Glucose 267 mg/dL (65-115) H 10/13/24 02:37 POC Glucose 286 mg/dL (70-110) H 10/13/24 06:33 Calculated Osmolality 296 mOsm/kg (285-295) H 10/13/24 02:37 Calcium 8.8 mg/dL (8.5-10.5) 10/13/24 02:37 Vitals Last Vital Signs Temp 97.9 F 10/13/24 00:22 Pulse 102 H 10/13/24 06:00 Resp 20 H 10/13/24 00:22 BP 143/74 10/13/24 00:22 Pulse Ox 94 10/13/24 00:22 O2 Del Method Room Air 10/13/24 00:22 Discharge Plan Discharge Patient Disposition: Home Condition: Stable Prescriptions: New clopidogrel 75 mg Tablet 75 mg PO DAILY Qty: 90 3RF Continued (DME) articulating AFO with accommodated orthotic and toe filler to left See Rx Instructions .Route .MEDSUPPLY Qty: 1 0RF Rx Instructions: As directed by DAVID&O mupirocin 2 % ointment 1 applic topical TID Qty: 15 0RF (DME) Dexcom G7 Game Engineer Misc See Rx Instructions .Route Qty: 1 0RF Rx Instructions: As directed insulin lispro [Humalog KwikPen Insulin] 100 unit/mL insulin pen 15 unit SUBCUT TID duloxetine 30 mg capsule,delayed release(DR/EC) 30 mg PO BID Qty: 60 1RF insulin glargine [Lantus Solostar U-100 Insulin] 100 unit/mL (3 mL) insulin pen 30 unit SUBCUT DAILY Qty: 15 3RF (DME) Omnipod 5 G6-G7 Pods (Gen 5) Cartridge See Rx Instructions .Route Qty: 15 1RF Rx Instructions: As directed (DME) Omnipod 5 G6-G7 Intro Kt(Gen5) Cartridge See Rx Instructions .Route Qty: 1 0RF Rx Instructions: As directed (DME) Dexcom G7 Sensor Device See Rx Instructions .ROUTE .MEDSUPPLY Qty: 6 2RF Rx Instructions: Change every 10days gabapentin 100 mg capsule See Rx Instructions .ROUTE TID Qty: 90 2RF Dose Instruction: take 1 capsule BY MOUTH THREE TIMES DAILY Rx Instructions: take 1 capsule BY MOUTH THREE TIMES DAILY three times daily; atorvastatin 80 mg tablet 80 mg PO BEDTIME Qty: 90 1RF methocarbamol 500 mg tablet See Rx Instructions .ROUTE .COMPLEX Qty: 60 1RF Dose Instruction: TAKE ONE TABLET BY MOUTH TWICE DAILY NEEDED FOR PAIN Rx Instructions: TAKE ONE TABLET BY MOUTH TWICE DAILY NEEDED FOR PAIN metoprolol tartrate 25 mg tablet 25 mg PO BID Qty: 180 0RF (DME) OneTouch Ultra Test Strip See Rx Instructions .Route Qty: 300 3RF Rx Instructions: Use with glucometer TID (DME) lancets [Accu-Chek Softclix Lancets] Misc See Rx Instructions .Route Qty: 100 0RF Rx Instructions: As directed (DME) cam boot See Rx Instructions .Route .MEDSUPPLY Qty: 1 0RF Rx Instructions: As directed (DME) pen needle, diabetic [TechLITE Pen Needle] 32 gauge x 5/32 needle See Rx Instructions .ROUTE .COMPLEX Qty: 100 0RF Dose Instruction: USE DIRECTED WITH TRESIBA TWICE DAILY Rx Instructions: USE DIRECTED WITH TRESIBA TWICE DAILY (DME) diabetic shoes See Rx Instructions .Route .MEDSUPPLY Qty: 1 0RF Rx Instructions: As directed acetaminophen [Tylenol Extra Strength] 500 mg Tablet 500 mg PO TID PRN (Reason: Pain) Qty: 0 0RF ascorbic acid (vitamin C) [Vitamin C] 1,000 mg Tablet 1 g PO QAM aspirin 81 mg Tablet,Delayed Release (Dr/Ec) 81 mg PO DAILY Held metformin 1,000 mg tablet See Rx Instructions .ROUTE .COMPLEX Qty: 180 1RF Hold Instructions: Resume on 10/16/24. Dose Instruction: TAKE 1 TABLET BY MOUTH TWICE DAILY Rx Instructions: TAKE 1 TABLET BY MOUTH TWICE DAILY Discharge Order = DC NOW: Discharge Order (Routine); Ordered 10/13/24 Ordered By: Nidia Chong Referrals: Irma Hsieh NP [Nurse Practitioner, Cardiology] - 10/25/24 2:00 pm Juany Gaujardo DO [Primary Care Provider, Family Practice] - 10/22/24 9:00 am Discharge Diet: Cardiac and Diabetic Discharge Activity: Increase activity as tolerated Patient Instructions: Peripheral Vascular Stent Placement (DC), Peripheral Vascular Angioplasty (DC), Opioid Safety, Patient Portal & Cassandra Instructions Activity Restrictions/Additional Instructions: No lifting over 5 pounds for the next 4 days. Print Language: Icelandic Discharge Attestations Time Spent in Discharge Care*: less than 30 min Status at Discharge: Cognitive status at discharge: cognitively intact , Behavioral status at discharge: cooperative , Quality Metrics Clinical Quality Measures [ No reported AMI, CVA or VTE this stay] Coding Level of Care Code Acute Code for Chg Luis
--- NOTE | 2024-10-13 11:10 | PC.NURSE ---
Patient discharged to home. Instruction provided regarding follow up needs,site care and new medications with changes. Patient verbalized complete understanding. Dressing to left groin remains c,d,i without s/s of bleeding or hematoma formation observed. Patient taken by personal wheelchair. Patient called [employer] for ride home. Patient agreeable to wait in discharge waiting area for ride. Patient denies pain or needs. No distress observed.
== END 2024-10-13 11:16 | disposition home or self-care (01) ==
LOC: ICU 12:16 → CSU 23:57
PROVIDERS: Internal Medicine Cardiovascular Disease; Nurse Practitioner Family; Admitting Provider Internal Medicine; PCP Family Medicine; Visit Provider Internal Medicine
DX: I25.10 Atherosclerotic heart disease of native coronary artery without angina pectoris (principal); I25.82 Chronic total occlusion of coronary artery; I73.89 Other specified peripheral vascular diseases; S91.301A Unspecified open wound, right foot, initial encounter; X58.XXXA Exposure to other specified factors, initial encounter; E11.9 Type 2 diabetes mellitus without complications; I10 Essential (primary) hypertension; E78.5 Hyperlipidemia, unspecified; Z79.82 Long term (current) use of aspirin; Z79.4 Long term (current) use of insulin; Z79.84 Long term (current) use of oral hypoglycemic drugs
CPT/HCPCS: 36415; 36416; 37226; 75625; 75710; 80048; 82962; 85025; 85347; 85730; 96360; 96361; 96372; 96376; 99152; 99153; C1725; C1769; C1876; C1887; C1894; G0378; J0360; J1644; J1815; J2250; J3010; J7030; J7040; J9999; Q0163; Q9967

== ENCOUNTER 2024-10-18 16:23 | Outpatient (CLI) | payer OTHER, SELFPAY ==
[2024-09-20 11:24] VITALS: BMI 27.3
--- NOTE | 2024-10-18 16:37 | XRR_ITS ---
PROCEDURE INFORMATION: Exam: XR Right Foot Exam date and time: 10/18/2024 4:45 PM Age: 63 years old Clinical indication: Condition or disease; Prior surgery; Surgery date: 6+ months; Surgery type: Amputation 2-5 digits lt foot, 2nd toe RT foot; RT foot non healing diabetic ulcer, 5th toe; Additional info: R/O osteo, attn; Right 5th toe TECHNIQUE: Imaging protocol: Radiologic exam of the right foot. Views: 3 or more views. COMPARISON: CT angio abd aorta runof [id number] 09/15/2024 2:10 PM FINDINGS: Bones/joints: There are findings of amputation of the 2nd toe at the MTP joint which does not appear significantly changed compared with the prior CT scan. There are chronic changes involving the tip of the 3rd distal phalanx which appear well corticated and stable compared with prior CT. No acute fracture is identified. Soft tissues: There is swelling of the 5th toe and there is some erosion along the lateral surface of the distal tip of the 5th distal phalanx worrisome for active osteomyelitis. Please correlate clinically. XR/XR foot RT min 3V* [id number] IMPRESSION: Findings worrisome for osteomyelitis involving the 5th distal phalanx.
== END 2024-10-18 16:24 | disposition home or self-care (01) ==
PROVIDERS: PCP Family Medicine; Visit Provider Thoracic Surgery (Cardiothoracic Vascular Surgery)
DX: E11.621 Type 2 diabetes mellitus with foot ulcer (principal); L97.519 Non-pressure chronic ulcer of other part of right foot with unspecified severity
CPT/HCPCS: 73630

== ENCOUNTER 2024-10-22 12:32 | Outpatient (CLI) | payer OTHER, MEDICAID, SELFPAY ==
[2024-09-20 11:24] VITALS: BMI 27.3
[2024-10-22 13:20] LABS: Estmated Average Glucose 275; Hemoglobin A1C 11.2 % (4.0-6.0)
[2024-10-22 13:35] LABS: Albumin Level 3.3 g/dL (3.5-5.2); Anion Gap 15.0 (5-19); Blood Urea Nitrogen 19 mg/dL (8-23); Calcium 9.2 mg/dL (8.5-10.5); Carbon Dioxide 28 mmol/L (22-29); Chloride 98 mmol/L (98-107); Glucose 354 mg/dL (65-115); Osmolality Calculated 298 mOsm/kg (285-295); Potassium 5.0 mmol/L (3.5-5.1); Prealbumin 19.9 mg/dL (20-40); Sodium 136 mmol/L (136-145)
== END 2024-10-22 12:33 | disposition home or self-care (01) ==
PROVIDERS: PCP Family Medicine; Visit Provider Thoracic Surgery (Cardiothoracic Vascular Surgery)
DX: E11.621 Type 2 diabetes mellitus with foot ulcer (principal); L97.509 Non-pressure chronic ulcer of other part of unspecified foot with unspecified severity; E11.65 Type 2 diabetes mellitus with hyperglycemia; Z79.4 Long term (current) use of insulin; E11.42 Type 2 diabetes mellitus with diabetic polyneuropathy; L97.522 Non-pressure chronic ulcer of other part of left foot with fat layer exposed; M86.672 Other chronic osteomyelitis, left ankle and foot
CPT/HCPCS: 36415; 80048; 82040; 83036; 84134; 85651; 86140; 87070; 87077; 87176; 87186; 87205

== ENCOUNTER → 2024-10-25 15:12 | Outpatient (BNVA) | payer OTHER, MEDICAID, SELFPAY ==
[2024-09-20 11:24] VITALS: BMI 27.3
== END ==
PROVIDERS: PCP Family Medicine; Visit Provider Nurse Practitioner Family
DX: I73.9 Peripheral vascular disease, unspecified (principal)
CPT/HCPCS: 80048

== ENCOUNTER → 2025-01-14 10:13 | Outpatient (BNVA) | payer MEDICARE, OTHER, SELFPAY ==
[2024-09-20 11:24] VITALS: BMI 27.3
== END ==
PROVIDERS: PCP Family Medicine; Visit Provider Internal Medicine
DX: E11.65 Type 2 diabetes mellitus with hyperglycemia (principal); E11.40 Type 2 diabetes mellitus with diabetic neuropathy, unspecified; Z79.4 Long term (current) use of insulin
CPT/HCPCS: 99214

== ENCOUNTER 2025-02-05 14:15 | Emergency (ER) | payer MEDICARE, OTHER, SELFPAY ==
[2024-09-20 11:24] VITALS: BMI 27.3
[2025-02-05 14:20] VITALS: BP 155/81; PULSE 100; RESP 16; TEMP 36.7; O2SAT 100; BMI 27.3
--- OUTSIDE RECORDS SUMMARY | 2025-02-05 14:22 | XMS_ITS | Encounter Summary ---
Author Organization [facility] Address [address] [facility] [address] [place] [address] Phone Care Team Providers Care Vegetable Cook Name Role Phone Juany Guajardo DO Primary Care Provider + [phone] Reason for Visit * Reason Comments Med Refill Encounter Details Date Type Department Care Team (Late st Contact Info) Description 12/05/2020 Refill [facility] [address] [place] [address] Doug Russ MD [address] [place] [address] Social History Tobacco Use Types Packs/Day Years Used Date Smoking Tobacco: Every Day Cigarettes Smokeless Tobacco: Never Alcohol Use Standard Drinks/Week Comments Never 0 (1 standard drink = 0.6 oz pur e alcohol) AUDIT-C Answer Date Recorded Frequency of Alcohol Consumption Never 07/29/2018 Average Number of Drinks Not on file 019 Frequency of Binge Drinking Not on file 07/07 Sex and Gender Information Value Date Recorded Sex Assigned at Not on file Legal Sex Male 10:53 AM EST Gender Identity Not on file Sexual Orientation Not on file documented as of this encounter Plan of Treatment Not on file documented as of this encounter Visit Diagnoses Not on filedocumented in this encounter Care Teams Vegetable Cook Relationship Specialty Start Date End Date Juany Guajardo DO [address] [place] [address] PCP - General Family Medicine 07/23/18 documented as of this encounter
--- OUTSIDE RECORDS SUMMARY | 2025-02-05 14:22 | XMS_ITS | Encounter Summary ---
Author Organization [facility] Address [address] [place] [address] Phone Care Team Providers Care Civilian Jail Officer Name Role Phone Juany Guajardo DO Primary Care Provider [phone] Encounter Details Date Type Department Care Team (Late st Contact Info) Description 10/27/2018 Orders Only [facility] [address] [place] [address] Doug Russ MD [address] [place] [address] Chronic kidney disease stage 2 Social History Tobacco Use Types Packs/Day Years [...] documented as of this encounter Visit Diagnoses Diagnosis Chronic kidney disease stage 2 documented in this encounter Care Teams Civilian Jail Officer Relationship Specialty Start Date End Date Juany Guajardo DO [address] [place], [place] [id number] PCP - General Family Medicine 07/23/18 documented as of this encounter
--- OUTSIDE RECORDS SUMMARY | 2025-02-05 14:22 | XMS_ITS | Clinical Summary ---
Author Organization [facility] Address [address] [address] Care Team Providers Care Water Filterer Helper Name Role Phone Juany Guajardo DO Primary Care Provider Allergies Active Allergy Reactions Criticality Noted Date Comments Trolamine (Triethanolamine) Rash Low 07/28/19 19 Oseltamivir Nausea 07/27/2018 Tobramycin 07/29/2018 Medications * This document contains information received from the source organization and may not represent a complete record from that organization. metFORMIN (GLUCOPHAGE) 1000 MG tablet Take 1,000 mg by mouth 2 (two) times a day with meals Active gabapentin (NEURONTIN) 400 MG capsule Take 400 mg by mouth 3 (three) times a day Active DULoxetine (CYMBALTA) [address] capsule Take 60 mg by mouth in the morning and 60 mg in the evening. Do not crush or chew. . Active atorvastatin (LIPITOR) 80 MG tablet Take 80 mg by mouth 1 (one) time each day Active aspirin (ST FLORENCIA) 81 MG EC tablet Take 81 mg by mouth 1 (one) time each day Active liraglutide (VICTOZA) 18 MG/3ML injection Inject 1.8 mg under the skin 1 (one) time each day Active metoprolol tartrate (LOPRESSOR) 25 MG tablet Take 25 mg by mouth 2 (two) times a day Active B Complex Vitamins (VITAMIN-B COMPLEX) tablet Take 1 tablet by mouth 1 (one) time each day Active Melatonin 5 MG tablet Take 1 tablet by mouth 1 (one) time each day if needed Active niacinamide 100 MG tablet Take 100 mg by mouth 1 (one) time each day Active Insulin Degludec 100 UNIT/ML solution Inject 36 Units under the skin 1 (one) time each day Active methocarbamol (ROBAXIN) 500 MG tablet Take 500 mg by mouth 1 (one) time each day if needed for muscle spasms Active traZODone (DESYREL) 150 MG tablet Take 150 mg by mouth every night Active Coenzyme Q10 200 MG tablet Take by mouth 1 (one) time each day Active beta carotene 15 MG capsule Take 15 mg by mouth 1 (one) time each day Active fenofibrate (TRICOR) 145 MG tablet Take 145 mg by mouth every night 0 Active testosterone cypionate (DEPO-TESTOTER ONE) 200 MG/ML injection INJECT 1ML INTRAMUSCULAR EVERY 2 WEEKS 0 Active AZO-CRANBERRY PO Take by mouth 2 (two) times a day Active Multiple Vitamin (multivitamin) tablet Take 1 tablet by mouth 1 (one) time each day Active insulin aspart (NovoLOG) 100 UNIT/ML patient supplied pump Inject under the skin continuously Sliding Scale Active traMADol (ULTRAM) 50 MG tablet Take 50 mg by mouth 1 (one) time each day if needed for moderate pain Active acetaminophen (TYLENOL) 500 MG tablet Take by mouth every 6 (six) hours if needed for mild pain Active Active Problems Problem Noted Date Diagnosed Date Vitamin D deficiency 12/04/2021 Hypercalcemia 04/20/2019 Microalbuminuria 07/29/2018 Type 2 diabetes mellitus 07/29/2018 Essential (primary) hypertension 07/29/2018 Tobacco use 07/29/2018 Family History Medical History Relation Comments Diabetes Father Gout Father Heart disease Father Hypertension Father Cancer Mother Diabetes Mother Hypertension Mother Kidney disease Mother Relation Status Comments Father Mother Social History Tobacco Use Types Packs/Day Years [...] on file Sexual Orientation Not on file Last Filed Vital Signs Vital Sign Reading Time Taken Comments Blood Pressure 138/72 12/04/2021 1:41 PM CDT Pulse 110 12/04/2021 1:41 PM CDT Temperature 35.8 C (96.4 F) 02/02/2020 12:36 PM CDT Respiratory Rate - - Oxygen Saturation - - Inhaled Oxygen Concentration - - Weight 91 kg (200 lb 9.6 oz) 12/04/2021 1:41 PM CDT Height 175.3 cm (5' 9 ) 12/04/2021 1:41 PM CDT Body Mass Index 29.62 12/04/2021 1:41 PM CDT Plan of Treatment Health Maintenance Due Date Last Done Comments Pneumococcal Vaccine: 50+ Years (1 of 2 - PCV) 11/30/1978 Colorectal Cancer Screening: Annual FOBT 11/30/2008 Colorectal Cancer Screening: Colonoscopy 11/30/2008 Colorectal Cancer Screening: Sigmoidoscopy 11/30/2008 Diabetes: Ophthalmology Exam 04/28/2018 Diabetes: Pedal Pulse Checked 04/28/2018 Diabetes: Sensory Foot Exam 04/28/2018 Diabetes: Visual Foot Exam 04/28/2018 Diabetes: Hemoglobin A1C 04/05/2020 020, 03/25/2018 Influenza Vaccine (#1) 2024 Hepatitis B Vaccine Aged Out No longe r eligible based on patient's age to complete this topic Procedures Procedure Name Priority Date/Time Associated Diagnosis Comments HEMOGLOBIN A1C (EXTERNAL RESULT ENTRY) Routine 01/05/2020 from Last 3 Months or Most Recently Relevant to Health Maintenance Results * Hemoglobin A1C (01/05/2020) Hemoglobin A1C 8.8 Blood specimen (specimen) Venous blood / Unknown 01/05/2020 Juany Guajardo DO LAB BLOOD ORDERABLES Final R esult from Last 3 Months or Most Recently Relevant to Health Maintenance Insurance Medicaid [place] ([id number]) Care Teams Water Filterer Helper Relationship Specialty Start Date End Date Juany Guajardo DO [address] [facility] [address] [place] [address] PCP - General Family Medicine 07/23/18
--- OUTSIDE RECORDS SUMMARY | 2025-02-05 14:22 | XMS_ITS | Encounter Summary ---
Author Organization [facility] Address [address] [place] [address] Care Team Providers Care Power Transformer Repairer Name Role Phone Unavailable Primary Care Provider Unavailabl e Reason for Referral * PET Scan (Routine) - Authorized Specialty Diagnoses / Procedures Referred By Contac t Referred To Contact Radiology Diagnoses Prostate cancer (CMS/HCC) Procedures PET TUMOR GA68 ILLUCCIX PSMA IMG W CT SKB MD CHMadelyn PET IMAGING CT ATTENUATION SKULL BASE MID-THIGH HCHG GALLIUM GA-68 GOZETOTIDE DX ILLUCCIX 1 [facility] W[place] GALLIUM ILLUCCIX 1 [facility] Jose Antonio Napier MD [address] [place] [phone] Phone: tel: fax: [facility] Nuclear Medicine [address] [place] [phone] Phone: tel: fax: Referral ID Status Reason Start Date Expiration Date Visits Requested Visits Authorized [id number] Authorized Performing Department to Schedule 03/04/2026 1 1 Reason for Visit * Reason Onset Date Comments Results 02/01/2025 Encounter Details Date Type Department Care Team (Late st Contact Info) Description 02/01/2025 Results Follow-Up [facility] Urology [address] [address] Kassy Rodrigues RN PATHOLOGY Social History Tobacco Use Types Packs/Day Years Used Date Smoking Tobacco: Never Assessed Sex and Gender Information Value Date Recorded Sex Assigned at Not on file Legal Sex Male 11:29 AM CDT Gender Identity Not on file Sexual Orientation Not on file documented as of this encounter Miscellaneous Notes * Telephone Encounter - Kassy Rodrigues RN - 02/01/2025 9:05 AM CDT Pt called into the office requesting pathology results. Informed pt of results. Pt verbalized understanding. PET scan order placed. Pt to call office back once PET scan is scheduled to schedule CAP talk. ----- Message from Dr. Jose Antonio Napier sent at 01/28/2025 10:28 AM CDT ----- Has some high grade and low grade CAP so need to stage with PSMA PET and talk either before or after PET RDJ ----- Message ----- From: [facility], Background Sent: 01/28/2025 10:27 AM CDT To: Jose Antonio Napier MD documented in this encounter Plan of Treatment Scheduled Orders Name Type Priority Associated Diagnoses Orde r Schedule PET TUMOR GA68 ILLUCCIX PSMA IMG W CT SKB MDTH Imaging Routine Prostate cancer (CMS/HCC) Expected: 02/01/2025, Expires: 02/01/2026 documented as of this encounter Visit Diagnoses Diagnosis Prostate cancer (CMS/HCC)- Primary Malignant neoplasm of prostate documented in this encounter
--- OUTSIDE RECORDS SUMMARY | 2025-02-05 14:22 | XMS_ITS | Encounter Summary ---
Author Organization [facility] Address [address] [place] [address] Phone Care Team Providers Care Nursing Staff Development Coordinator Name Role Phone Juany Guajardo Primary Care Provider [phone] Encounter Details Date Type Department Care Team (Late st Contact Info) Description 10/28/2018 Orders Only [facility] [address] [place] [address] Rj Lutz NP Microalbuminuria Social History Tobacco Use Types Packs/Day Years [...] on file documented as of this encounter Procedures Procedure Name Priority Date/Time Associated Diagnosis Comments RENAL FUNCTION PANEL Routine 10/12/2018 11:57 AM CDT Microalbuminuria documented in this encounter Results * Renal function panel (10/12/2018 11:57 AM CDT) Albumin 4.1 3.5 - 5.0 g/dL [facility] BUN 18 4 - 21 mg/dL [facility] Calcium 9.7 8.7 - 10.7 mg/dL [facility] Chloride 100 99 - 108 [facility] Bicarbonate (CO2) 26 22 - 30 mmol/L [facility] Creatinine 0.80 0.60 - 1.30 mg/dL [facility] eGFR Non- 99.3 mL/min/1.7 3m*2 [facility] Glucose 298 [facility] Phosphorus, Serum 3.0 [facility] Potassium 4.5 3.4 - 5.5 [facility] Sodium 138 137 - 147 [facility] Blood specimen (specimen) Venous blood / Unknown 10/12/2018 11:57 AM CDT Narrative [facility] - 10/13/2018 9:35 AM CDT uniform force captain lab [facility] [address] [place], [place] [address] Rj Lutz ZINC CHLORIDE OPERATOR LAB BLOOD ORDERABLES Final Result [facility] documented in this encounter Visit Diagnoses Diagnosis Microalbuminuria documented in this encounter Care Teams Nursing Staff Development Coordinator Relationship Specialty Start Date End Date Juany Guajardo DO [address] [facility] [address] [place] [address] PCP - General Family Medicine 07/23/18 documented as of this encounter
--- OUTSIDE RECORDS SUMMARY | 2025-02-05 14:22 | XMS_ITS | Encounter Summary ---
Author Organization [facility] Address [address] [place] [address] Phone Care Team Providers Care Welder 2Nd Shift Name Role Phone Juany Guajardo DO Primary Care Provider [phone] Encounter Details Date Type Department Care Team (Late st Contact Info) Description 04/15/2019 Orders Only [facility] [address] [place] [address] Doug Russ MD [address] [place] [address] Chronic kidney disease stage 2 [...] 2 documented in this encounter Care Teams Welder 2Nd Shift Relationship Specialty Start Date End Date Juany Guajardo DO [address] [place], [place] [id number] PCP - General Family Medicine 07/23/18 documented as of this encounter
--- OUTSIDE RECORDS SUMMARY | 2025-02-05 14:22 | XMS_ITS | Clinical Summary ---
Author Organization [facility] Physici an Colon Address [address] [facility] [place] [address] Care Team Providers Care Product Development Coordinator Name Role Phone Unavailable Primary Care Provider Unavailabl e Allergies Active Allergy Reactions Criticality Noted Date Comments Heparin Nausea and Vomiting Low 12/04/2021 Nsaids (Non-Steroidal Anti-Inflammatory Drug) Anaphylaxis High 04/11/2021 Oseltamivir Nausea and Vomiting Low 07/27/2018 Sulfa (Sulfonamide Antibiotics) Unknown Low 11/07 Tobramycin Unknown 07/29/2018 Triethanolamine Analogues Rash Low 07/27/2018 Active Problems No known active problems Encounters Date Type Department Care Team Description 02/01/2025 Results Follow-Up [address] [place] [address] Kassy Rodrigues, [facility] 01/25/2025 2:00 PM CDT Procedure visit [address] [place] [phone] Jose Antonio Napier MD 01/25/2025 Orders Only [address] [place] [address] Sandra Garcia LPN Elevated PSA (Primary Dx); Elevated prostate specific antigen (PSA) 12/22/2024 Orders Only [address] [place] [address] Sandra Garcia LPN Elevated PSA (Primary Dx) 12/17/[address] [place] [phone] Jose Antonio Napier MD Biopsy (prostate) 12/17/2024 Results [facility] [address] [place] [phone] Kassy Rodrigues RN MISCELLANEOUS LAB TEST 12/14/2024 External Device Data [facility] ABSTRACTION Provider, Abstract 12/14/2024 External Device Data [facility]STRACTION Provider, Abstract 12/14/2024 External Device Data [facility]STRACTION Provider, Abstract 12/07/2024 3:00 PM CDT Office Visit [facility] [address] [place] [address] Jose Antonio Napier MD Elevated PSA (Primary Dx); Elevated prostate specific antigen (PSA) from Last 3 Months Social History Tobacco Use Types Packs/Day Years Used Date Smoking Tobacco: Never Assessed Sex and Gender Information Value Date Recorded Sex Assigned at Not on file Legal Sex Male 11:29 AM CDT Gender Identity Not on file Sexual Orientation Not on file Plan of Treatment Health Maintenance Due Date Last Done Comments DIABETES ANNUAL FOOT EXAM 11/30/1977 DIABETES ANNUAL RETINAL EXAM 11/30/1977 DIABETES MICROALBUMIN ANNUAL SCREEN 11/30/1977 LDL CHOLESTEROL ANNUAL 11/30/1977 DTAP/TDAP/TD VACCINES (1 - Tdap) 11/30/1978 PNEUMOCOCCAL VACCINE 50+ YEA RS (1 of 2 - PCV) 11/30/1978 Traditional Medicare (O) A nnual Wellness Visit 11/30/1978 COLORECTAL SCREENING 11/30/2004 Colorectal Cancer Screening 11/30/2004 FIT-DNA Q 3 years 11/30/2004 FIT/FOBT Q 1 year 11/30/2004 Flex Sig/CT Colonography Q 5 years 11/30/2004 RSV VACCINE (60+ or ) (1 - Risk 50-74 years 1-dose series) 11/30/2009 ZOSTER VACCINE (1 of 2) 11/30/2009 DIABETES HBA1C Q 6 MONTHS 07/04/2020 01/05/2020 INFLUENZA VACCINE (#1) 2024 COVID-19 Vaccine (3 - season) 2024, 03/06/2021 Procedures Procedure Name Priority Date/Time Associated Diagnosis Comments PATHOLOGY Routine 01/25/2025 2:43 PM CDT Elevated PSA Elevated prostate specific antigen (PSA) MISCELLANEOUS LAB TEST Routine 5 3:28 PM CDT Elevated prostate specific antigen (PSA) from Last 3 Months Results * PATHOLOGY (01/25/2025 2:43 PM CDT) CASE REPORT Surgical Pathology Report Case: [id number] Authorizing Provider: Jose Antonio Napier MD Collected: 01/25/2025 02:43 PM Ordering Location: [facility] Received: 01/26/2025 05:23 AM Pathologist: Beatriz Contreras MD Specimens: A) - Prostate, right apex B) - Prostate, right mid C) - Prostate, right base D) - Prostate, left apex E) - Prostate, left mid F) - Prostate, left base 10:27 AM CDT [facility] SERVICES [facility] FINAL DIAGNOSIS A. Prostate, right apex, core biopsy - Benign prostate tissue / B. Prostate, right mid, core biopsy Histologic Type: Acinar adenocarcinoma Histologic Grade (Amanda Pattern) Primary (Predominant) Pattern: Grade 3 Secondary (Worst Remaining) Pattern: Grade 3 Total Amanda Score: 6 Grade Group: 1 Percentage of Pattern 4 (Pax Score 7): N/A Cribriform Glands (Pax score 7 or 8): N/A Intraductal Carcinoma: Not identified Tumor Quantitation: Number of positive cores/Total number of cores: 2 out of 3 Percent of biopsy tissue involved by tumor: <3% Total linear millimeters of carcinoma: 1 mm Periprostatic Fat Invasion: Not identified Seminal Vesicle Invasion: Not identified / C. Prostate, right base, core biopsy Histologic Type: Acinar adenocarcinoma Histologic Grade (Amanda Pattern) Primary (Predominant) Pattern: Grade 3 Secondary (Worst Remaining) Pattern: Grade 3 Total Pax Score: 6 Grade Group: 1 Percentage of Pattern 4 (Amanda Score 7): N/A Cribriform Glands (Amanda score 7 or 8): N/A Intraductal Carcinoma: Not identified Tumor Quantitation: Number of positive cores/Total number of cores: 2 out of 2 Percent of biopsy tissue involved by tumor: 25% Total linear millimeters of carcinoma: 5 mm Periprostatic Fat Invasion: Not identified Seminal Vesicle Invasion: Not identified / D. Prostate, left apex, core biopsy Histologic Type: Acinar adenocarcinoma Histologic Grade (Amanda Pattern) Primary (Predominant) Pattern: Grade 4 Secondary (Worst Remaining) Pattern: Grade 3 Total Amanda Score: 7 Grade Group: 3 Percentage of Pattern 4 (Pax Score 7): 80% Cribriform Glands (Amanda score 7 or 8): Not identified Intraductal Carcinoma: Not identified Tumor Quantitation: Number of positive cores/Total number of cores: 3 out of 3 Percent of biopsy tissue involved by tumor: 50% Total linear millimeters of carcinoma: 10 mm Periprostatic Fat Invasion: Not identified Seminal Vesicle Invasion: Not identified / E. Prostate, left mid, core biopsy Histologic Type: Acinar adenocarcinoma Histologic Grade (Amanda Pattern) Primary (Predominant) Pattern: Grade 4 Secondary (Worst Remaining) Pattern: Grade 3 Total Amanda Score: 7 Grade Group: 3 Percentage of Pattern 4 (Amanda Score 7): 80% Cribriform Glands (Amanda score 7 or 8): Not identified Intraductal Carcinoma: Not identified Tumor Quantitation: Number of positive cores/Total number of cores: 2 out of 2 Percent of biopsy tissue involved by tumor: 85% Total linear millimeters of carcinoma: 25 mm Periprostatic Fat Invasion: Not identified Seminal Vesicle Invasion: Not identified / F. Prostate, left base, core biopsy Histologic Type: Acinar adenocarcinoma Histologic Grade (Pax Pattern) Primary (Predominant) Pattern: Grade 4 Secondary (Worst Remaining) Pattern: Grade 5 Total Amanda Score: 9 Grade Group: 5 Percentage of Pattern 4 (Pax Score 7): 80% Cribriform Glands (Pax score 7 or 8): Not identified Intraductal Carcinoma: Not identified Tumor Quantitation: Number of positive cores/Total number of cores: 2 out of 3 Percent of biopsy tissue involved by tumor: 55% Total linear millimeters of carcinoma: 17 mm Periprostatic Fat Invasion: Not identified Seminal Vesicle Invasion: Not identified REV:LEON oCntreras MD [id number] 10:27 AM [facility] anfix [facility] at [address] [facility] DIAGNOSIS COMMENT After review of the H&E-stained slides, a PIN 3 immunohistochemical stain cocktail was performed on block B1 and shows small areas of acinar adenocarcinoma with absent staining for basal cell markers and increased staining with AMACR. 10:27 AM [facility] GROSS DESCRIPTION A. Received in formalin labeled Elio - right apex are 3 cores of pale-fraser soft tissue, 0.9 cm in greatest dimension. The specimen is submitted entirely in A1. B. Received in formalin labeled [place] - right mid are multiple cores of pale-fraser soft tissue, 2.0 cm in greatest dimension. The specimen is submitted entirely in B1. C. Received in formalin labeled [place] - right base are 3 cores of pale-fraser soft tissue, 1.4 cm in greatest dimension. The specimen is submitted entirely in C1. D. Received in formalin labeled [place] - left apex are multiple cores of pale-fraser soft tissue, 2.0 cm in greatest dimension. The specimen is submitted entirely in D1. E. Received in formalin labeled [place] - left mid are 2 cores of pale-fraser soft tissue, 1.7 cm in greatest dimension. The specimen is submitted entirely in E1. F. Received in formalin labeled [place] - left base are 3 cores of pale-fraser soft tissue, 1.4 cm in greatest dimension. The specimen is submitted entirely in F1. Grossed by: Leidy Hernandez MS, PA (ASCP) 5 10:27 AM [facility] CLINICAL INFORMATION R97.20 - Elevated PSA [ICD-10-CM] R97.20 - Elevated prostate specific antigen (PSA) [ICD-10-CM] 5 10:27 AM [facility] COMMENT The [employer] voice-activated dictation system may have been used in the creation of this report. Inherent to this system is the possibility of errors in syntax, grammar, punctuation, or other areas that could impact interpretation. If there are interpretive questions about the report, please contact the performing pathologist. Unless gross only is specified in the diagnosis, the microscopic examination substantiates the above cited diagnosis. The performance characteristics of all immunohistochemical stains cited in this report (if any) were determined by the [facility] of [facility] in compliance with CLIA'88 regulations. Some of these tests rely on the use of analyte specific reagents and are subject to specific labeling requirements by the FDA. All controls show appropriate reactivity. This testing was developed by the [facility] of [facility]. It has not been cleared or approved by the FDA. The FDA has determined that such clearance or approval is not necessary. 10:27 AM CDT [facility] Tissue ENTIRE PROSTATE / Unknown Collection / Unknown 01/25/2025 2:43 PM CDT 01/26/2025 5:23 AM CDT Tissue specimen (specimen) ENTIRE PROSTATE / Unknown 01/25/2025 2:43 PM CDT 01/26/2025 5:23 AM CDT Tissue specimen (specimen) ENTIRE PROSTATE / Unknown 01/25/2025 2:43 PM CDT 01/26/2025 5:23 AM CDT Tissue specimen (specimen) ENTIRE PROSTATE / Unknown 01/25/2025 2:43 PM CDT 01/26/2025 5:23 AM CDT Tissue specimen (specimen) ENTIRE PROSTATE / Unknown 01/25/2025 2:43 PM CDT 01/26/2025 5:23 AM CDT Tissue specimen (specimen) ENTIRE PROSTATE / Unknown 01/25/2025 2:43 PM CDT 01/26/2025 5:23 AM CDT Jose Antonio Napier MD PATHOLOGY/CYTOLOGY ORDERABLE S Final Result [facility] CLIA # [id number] [address] [place] [id number] * MISCELLANEOUS LAB TEST (12/07/2024 3:28 PM CDT) MISCELLANEOUS LAB TEST REPORT [facility] Comment: ISOPSA(R) TEST NAME RESULT FLAG UNITS REF RANGE ========= ====== ==== ===== ========= ISOPSA 16.1 H INDEX Risk Threshold: >6.0 TOTAL PSA 8.9 H ng/mL <4.0 INTERPRETATION IsoPSA is used as an aid in the detection of high-grade prostate cancer (Amanda >=7). In a study of 575 patients with no prior mpMRI undergoing biopsy, IsoPSA had a sensitivity of 96% and a specificity of 62% for detecting high-grade cancer on biopsy.* IsoPSA Index PPV >6 44% >10 54% * Disease prevalence = 37% As with all laboratory tests, results near the threshold should be interpreted with caution and in the context of other clinical risk indicators and risk assessments. NOTES IsoPSA evaluates the overall structural content of prostate specific antigen (PSA) isoforms in plasma in men being considered for prostate biopsy who are age >=50 years old with PSA levels >=4 ng/mL within the last 12 months. Other clinical information should be considered along with the IsoPSA test result in the discussion between the provider and the patient to make the most informed decision for or against undergoing biopsy. The performance characteristics of the IsoPSA test have not been validated in populations other than men aged 50 years or greater with total PSA >=4 ng/mL within the last 12 months. Clinical decisions made for patients outside of this population, or for those whose dates of are not provided, are entirely within the discretion of the treating provider. The IsoPSA test was developed and its performance characteristics determined by [facility]. The laboratory performing the IsoPSA test is regulated under Clinical Laboratory Improvement Amendments of 1988 (CLIA) as qualified to perform high-complexity clinical testing. This test has not been cleared or approved by the U.S. Food and Drug Administration (FDA). IsoPSA should not be used for screening purposes. It is recommended that IsoPSA test results be communicated to the patient in a setting that includes appropriate counseling. All total PSA tests are performed by [facility] using a Elizabeth reynaldo(R) instrument and are performed in accordance with the mid wife's test specifications. *Data on file, [facility]. FASTING:NO FASTING: NO Test Performed at: [facility] [address] [place] [address], [address] [place] [id number] Mulugeta Santos MD Blood 12/07/2024 3:28 PM CDT 12/07/2024 3:28 PM CDT us Jose Antonio Napier MD CHEMISTRY ORDERABLES Final R esult [facility] [phone] [facility] [address], [address] [phone] from Last 3 Months Insurance MEDICARE PART A AND B
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
[2025-02-05] MEDS: mupirocin oint 22 gm 1 APPLIC TOPICAL (16:29)
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
== END 2025-02-05 16:30 | disposition home or self-care (01) ==
PROVIDERS: Emergency Provider Physician Assistant; PCP Family Medicine
DX: T23.241A Burn of second degree of multiple right fingers (nail), including thumb, initial encounter (principal); T23.262A Burn of second degree of back of left hand, initial encounter; Z79.4 Long term (current) use of insulin; Z79.02 Long term (current) use of antithrombotics/antiplatelets; Z79.82 Long term (current) use of aspirin; Z79.84 Long term (current) use of oral hypoglycemic drugs; E78.5 Hyperlipidemia, unspecified; E11.9 Type 2 diabetes mellitus without complications; I10 Essential (primary) hypertension; X19.XXXA Contact with other heat and hot substances, initial encounter
CPT/HCPCS: 99283

== ENCOUNTER → 2025-02-10 12:44 | Outpatient (BNVA) | payer MEDICARE, OTHER, SELFPAY ==
[2025-02-10 12:37] VITALS: BMI 27.3
== END ==
PROVIDERS: PCP Family Medicine; Visit Provider Thoracic Surgery (Cardiothoracic Vascular Surgery)
DX: I96 Gangrene, not elsewhere classified (principal); T23.241A Burn of second degree of multiple right fingers (nail), including thumb, initial encounter; T23.262A Burn of second degree of back of left hand, initial encounter; T24.222A Burn of second degree of left knee, initial encounter; T24.221A Burn of second degree of right knee, initial encounter; X19.XXXA Contact with other heat and hot substances, initial encounter
CPT/HCPCS: 97597; 97598; 99213; A6219; A6446

== ENCOUNTER → 2025-03-01 10:32 | Outpatient (BNVA) | payer MEDICARE, SELFPAY ==
[2025-02-10 12:37] VITALS: BMI 27.3
== END ==
PROVIDERS: PCP Family Medicine; Visit Provider Thoracic Surgery (Cardiothoracic Vascular Surgery)
DX: I96 Gangrene, not elsewhere classified (principal); T23.241D Burn of second degree of multiple right fingers (nail), including thumb, subsequent encounter; T23.262D Burn of second degree of back of left hand, subsequent encounter; T24.222D Burn of second degree of left knee, subsequent encounter; T24.221D Burn of second degree of right knee, subsequent encounter; X19.XXXA Contact with other heat and hot substances, initial encounter; Z09 Encounter for follow-up examination after completed treatment for conditions other than malignant neoplasm
CPT/HCPCS: 11042; A6220

== ENCOUNTER → 2025-03-10 12:54 | Outpatient (BNVA) | payer MEDICARE, SELFPAY ==
[2025-02-10 12:37] VITALS: BMI 27.3
== END ==
PROVIDERS: PCP Family Medicine; Visit Provider Thoracic Surgery (Cardiothoracic Vascular Surgery)
DX: I96 Gangrene, not elsewhere classified (principal); T23.241D Burn of second degree of multiple right fingers (nail), including thumb, subsequent encounter; T23.262D Burn of second degree of back of left hand, subsequent encounter; T24.221D Burn of second degree of right knee, subsequent encounter; T24.222D Burn of second degree of left knee, subsequent encounter; X19.XXXD Contact with other heat and hot substances, subsequent encounter
CPT/HCPCS: 97597

== ENCOUNTER → 2025-03-17 13:02 | Outpatient (BNVA) | payer MEDICARE, SELFPAY ==
[2025-02-10 12:37] VITALS: BMI 27.3
== END ==
PROVIDERS: PCP Family Medicine; Visit Provider Thoracic Surgery (Cardiothoracic Vascular Surgery)
DX: I96 Gangrene, not elsewhere classified (principal); T24.221D Burn of second degree of right knee, subsequent encounter; X19.XXXD Contact with other heat and hot substances, subsequent encounter
CPT/HCPCS: 97597; 97598; A6212

== ENCOUNTER 2025-03-24 15:17 | Outpatient (CLI) | payer MEDICARE, SELFPAY ==
[2025-02-10 12:37] VITALS: BMI 27.3
--- NOTE | 2025-03-24 15:42 | XR_ITS ---
WS: [id number] Left foot, 3 views, 03/24/2025 Clinical Data: Lateral Foot wound and Heel with s/sx of infection Comparison: Left foot, 01/27/2024 Findings: The partial amputations include the second and third toes, the distal left fourth metatarsal and fourth toe and the entire left fifth metatarsal and toe. There is irregularity of the tarsal bones especially of the cuboid and third cuneiform. There is minimal soft tissue air inferior to the cuboid which could represent cellulitis. No fractures are seen. There is partial loss of the normal plantar arch of the foot unchanged. XR/XR foot LT min 3V* [id number] Impression: 1. Amputations unchanged. 2. Tarsal erosions unchanged. 3. Air inferior to the cuboid which could represent cellulitis.
[2025-03-24 16:09] LABS: Hematocrit 34.7 % (37-53); Hemoglobin 11.70 g/dL (11.27-16.99); Mean Corpuscular HGB Conc 33.7 g/dL (30-55); Mean Corpuscular Hemoglobin 28.3 pg (27-33); Mean Corpuscular Volume 84.0 fl (82-101); Nucleated Red Blood Cells % 0 %; Platelet Count 420 10^3/cmm (157-399); Red Blood Count 4.13 10^6/uL (3.85-5.65); White Blood Count 17.01 10^3/uL (3.29-11.43)
[2025-03-24 17:09] LABS: Anion Gap 15.7 (5-19); Blood Urea Nitrogen 18 mg/dL (8-23); Calcium 9.0 mg/dL (8.5-10.5); Carbon Dioxide 29 mmol/L (22-29); Chloride 92 mmol/L (98-107); Glucose 369 mg/dL (65-115); Osmolality Calculated 291 mOsm/kg (285-295); Potassium 4.7 mmol/L (3.5-5.1); Sodium 132 mmol/L (136-145)
== END 2025-03-24 15:18 | disposition home or self-care (01) ==
LOC: LAB 15:20
PROVIDERS: PCP Family Medicine; Visit Provider Thoracic Surgery (Cardiothoracic Vascular Surgery)
DX: E11.621 Type 2 diabetes mellitus with foot ulcer (principal); I73.9 Peripheral vascular disease, unspecified; E11.65 Type 2 diabetes mellitus with hyperglycemia; Z79.4 Long term (current) use of insulin; E11.42 Type 2 diabetes mellitus with diabetic polyneuropathy; L97.523 Non-pressure chronic ulcer of other part of left foot with necrosis of muscle; L97.522 Non-pressure chronic ulcer of other part of left foot with fat layer exposed; M89.8X7 Other specified disorders of bone, ankle and foot; Z89.422 Acquired absence of other left toe(s); E11.52 Type 2 diabetes mellitus with diabetic peripheral angiopathy with gangrene; L97.421 Non-pressure chronic ulcer of left heel and midfoot limited to breakdown of skin; T24.221D Burn of second degree of right knee, subsequent encounter; X19.XXXD Contact with other heat and hot substances, subsequent encounter
CPT/HCPCS: 11042; 36415; 73630; 80048; 85025; 86140; 87070; 87077; 87176; 87186; 87205; 97597; 97598; A6220; A6248; A6252

== ENCOUNTER 2025-03-25 10:12 | Inpatient (IN) | payer MEDICARE, SELFPAY ==
[2025-02-10 12:37] VITALS: BMI 27.3
[2025-03-25 09:17] VITALS: BP 173/84; PULSE 94; RESP 16; TEMP 36.8; O2SAT 97; BMI 26.4
--- NOTE | 2025-03-25 09:41 | W.ED.WOUNDLC ---
HPI - Wound/Laceration General: Chief Complaint: Wound/Laceration Stated Complaint: FOOT WOUND History of Present Illness: 64-year-old male presents emergency room he has a extensive ulcer to his left foot. It extends both laterally and is a heel pressure ulcer. He has been following with wound clinic. He was recently started on Augmentin. States the discomfort has become increased and he been advised to present to the emergency room he denies any fever at home. He has previously had diabetic foot ulcers with osteomyelitis and had to have revision of his foot the fifth ray is absent as are most of his toes with the exception of his left great toe. No drainage from the wound. Associated symptoms: Denies chills or fever(s) Related Data Home Medications ?Medication ?Instructions ?Recorded ?Confirmed ascorbic acid (vitamin C) 1,000 mg 1 g PO QAM 12/13/20 03/25/25 tablet (Vitamin C) aspirin 81 mg tablet,delayed 81 mg PO DAILY 06/14/21 03/25/25 release clopidogrel 75 mg tablet 75 mg PO DAILY 10/25/24 03/25/25 gabapentin 100 mg capsule 100 mg PO TID 10/25/24 03/25/25 insulin lispro 100 unit/mL 15 unit SUBCUT TID PRN blood sugar 10/25/24 03/25/25 subcutaneous pen (Humalog KwikPen (U-100) Insulin) insulin glargine-yfgn 100 unit/mL 55 unit SUBCUT DAILY 02/05/25 03/25/25 (3 mL) subcutaneous pen (Semglee (insulin glargine-yfgn) Pen) metformin 1,000 mg tablet 1,000 mg PO BID 02/05/25 03/25/25 Previous Rx's ?Medication ?Instructions ?Recorded acetaminophen 500 mg tablet 500 mg PO TID PRN Pain #0 tabs 10/27/19 (Tylenol Extra Strength) articulating AFO with accommodated #1 ea 12/04/21 orthotic and toe filler to left cam boot #1 ea 04/29/22 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,power sweeper operator,cont #1 ea 10/02/22 (Dexcom G7 Service Desk Agent) pen needle, diabetic 32 gauge x ##100 10/16/22/32 (TechLITE Pen Needle) atorvastatin 80 mg tablet 80 mg PO BEDTIME #90 tabs 03/10/24 blood sugar diagnostic (OneTouch #300 ea 03/10/24 Ultra Test strips) lancets (Accu-Chek Softclix #100 ea 03/10/24 Lancets) diabetic shoes #1 ea 07/13/24 insulin pump cart,auto,BT,G6/7 #15 ea 09/17/24 (Omnipod 5 G6-G7 Pods (Gen 5) subcutaneous cartridge) insulin pump cartridge,auto #1 ea 09/17/24 dose,BT,G6/G7 with controller subcutaneous (Omnipod 5 G6-G7 Intro Kit(Gen 5) subcutaneous cartridge and controller) metoprolol tartrate 25 mg tablet 25 mg PO BID #180 tabs 10/26/24 duloxetine 30 mg capsule,delayed 30 mg PO BID #60 caps 12/28/24 release 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 sensor (Dexcom G7 #9 ea 01/14/25 Sensor device) gauze bandage 2 1/4 X 3 yard #96 ea 02/05/25 (Kerlix) mupirocin 2 % topical ointment 1 applic topical BID #22 grams 02/05/25 (Centany) white petrolatum 1 X 8 bandage #200 ea 02/05/25 (Vaseline Petrolatum Gauze) clindamycin HCl 300 mg capsule 300 mg PO TID #21 caps 03/24/25 (Cleocin HCl) levofloxacin 500 mg tablet 500 mg PO DAILY #10 tabs 03/24/25 Allergies Allergy/AdvReac Type Severity Reaction Status Date / Time Sulfa (Sulfonamide Allergy Mild Unknown Verified 03/25/25 09:18 Antibiotics) NSAIDS (Non-Steroidal Allergy Unknown ALGY-Anaphy Verified 03/25/25 09:18 Anti-Inflamma (NSAIDS laxis,Unkno (Non-Steroidal wn Anti-Inflammatory Drug)) oseltamivir (From Tamiflu) Allergy ADR-Nausea Verified 03/25/25 09:18 triethanolamine (From Allergy ALGY-Rash Verified 03/25/25 09:18 Cerumenex) Review of Systems Const: Denies: fever(s) or chills Card: Denies: chest pain Resp: Denies: dyspnea GI: Denies: abdominal pain : Denies: dysuria, urinary frequency or urinary urgency Musc: Denies: neck pain or back pain Skin/Breast: Denies: rash PFSH ED PFSH: Medical History Psychiatric care Uncontrolled type 2 diabetes mellitus, with long-term current use of insulin Tobacco dependency HTN (hypertension), benign Major depressive disorder Low back pain radiating down leg Essential hypertension Hypotestosteronemia in male Dyslipidemia Surgical History History of amputation of lesser toe of both feet H/O total hip arthroplasty Brionna Accolade II total hip system: The size 58 mm solid back acetabular shell with an F alpha code and an MDM liner size 46 mm inner diameter by F alpha code. An Accolade II size 6 x 127 degree neck angle hip stem, femoral head size 28 mm outer diameter and +0 mm offset inside of an MDM insert size inner diameter 28 mm to match the 46F History of total left hip arthroplasty Hx of cataract extraction History of incision and drainage left foot History of amputation of toe Right second and left second and third History of eye surgery Status post vasectomy Family History Father CAD (coronary artery disease) Diabetes Mother Cancer Chronic kidney disease (CKD) Diabetes Lung disease Grandmother Dementia Stroke Family/Other Suicide Other Hypertension Denies family history of Clotting disorder Anesthesia complication Bleeding disorder Social History Smoking and tobacco/nicotine status: current every day tobacco/nicotine user cigarettes Packs smoked per day: 1 Alcohol intake: current Alcohol intake frequency: holidays/special occasions only Substance/Drug Use: never Physical Exam Const: GENERAL APPEARANCE: cooperative ORIENTATION/CONSCIOUSNESS: Yes awake, Yes oriented to person, Yes oriented to place and Yes oriented to time HENMT: COMMON NORMALS: normocephalic, atraumatic and hearing grossly normal bilaterally HEAD & SCALP: normocephalic and atraumatic Resp: COMMON NORMALS: normal respiratory effort, No retractions, No use of accessory muscles and clear to auscultation bilaterally AUSCULTATION: clear to auscultation bilaterally Cardio: COMMON NORMALS: regular rate, regular rhythm and No murmurs present (Cardio) RATE: regular rate RHYTHM: regular rhythm GI: COMMON NORMALS: Soft to palpation and No hepatosplenomegaly present AUSCULTATION: Yes normoactive bowel sounds PALPATION: Yes Soft to palpation, No Tenderness to palpation present (GI), No Guarding due to palpation present (GI) and Yes No hepatosplenomegaly present Extremity: OTHER: Neuro: SENSORIUM/ORIENTATION: Yes oriented to person, Yes oriented to place and Yes oriented to time Skin: COMMON NORMALS: no rashes or lesions noted GENERAL SKIN EXAM: no rashes or lesions noted Course Vital Signs: Vital signs: Vital Signs Temperature 98.2 F 03/28/25 04:00 Pulse Rate 104 H 03/28/25 04:00 Respiratory Rate 19 H 03/28/25 04:00 Blood Pressure 162/78 03/28/25 04:00 Pulse Oximetry 95 03/28/25 04:00 Oxygen Delivery Me thod Room Air 03/28/25 04:00 Oxygen Flow Rate 1 03/27/25 14:29 MDM - Wound/Laceration Medical Decision Making Medical decision making Social determinants: None I reviewed the patient's medical record. I reviewed the patient's current home meds. Alternate historians: None Differential diagnosis: Cellulitis, osteomyelitis, chronic osteomyelitis, peripheral vascular disease diabetes mellitus Lab Review: White count of 17,000 mild hyponatremia 132 appears to be chronic for him acute kidney injury with a creatinine up to 1.7 BUN 18. Glucose 369. CRP 85.5. Imaging: X-ray of the foot shows no gas collection in the lateral portion of the foot adjacent to the remnant of the third metatarsal bone. Signs of chronic osteomyelitis when compared to previous x-rays Assessment of risk Level of risk: High Hospitalization considerations: Admit for cellulitis osteomyelitis Reexamination: Unchanged Assessment and plan: Patient will need to be admitted patient has worsening cellulitis he has some underlying chronic osteomyelitis but appears to be progressing. The wound is mildly foul-smelling. The heel ulcer appears to be full-thickness so well as well. The overlying skin is still in place but has significant eschar as noted in the picture suspect will D marginate and exposed underlying tissue. Discussed with Dr. Morgan. He reviewed the case and seen the patient is recommending below the knee amputation. Will admit to hospitalist. Dr. Morgan hospitalist service talking to Ortho regarding amputation. Lab Data 03/28/25 05:36 03/28/25 05:36 Radiology Impressions Foot X-Ray 03/25/25 09:43 Impression: 1. Amputations of the tarsal bones remain the same. 2. Subcutaneous air adjacent to base of left fourth metatarsal and cuboid has increased. 3. No change in tarsal irregularity. 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 Generally decreased flow through the left lower extremity. Laboratory Results WBC 14.84 10^3/uL (3.29-11.43) H 03/25/25 09:39 RBC 3.73 10^6/uL (3.85-5.65) L 03/25/25 09:39 Hgb 10.60 g/dL (11.27-16.99) L 03/25/25 09:39 Hct 32.1 % (37-53) L 03/25/25 09:39 MCV 86.1 fl (82-101) 03/25/25 09:39 MCH 28.4 pg (27-33) 03/25/25 09:39 MCHC 33.0 g/dL (30-55) 03/25/25 09:39 RDW 12.0 % (12.1-15.1) L 03/25/25 09:39 Plt Count 371 10^3/cmm (157-399) 03/25/25 09:39 MPV 10.2 fL (7.4-10.4) 03/25/25 09:39 Neut % (Auto) 76.7 % 03/25/25 09:39 Lymph % (Auto) 11.7 % 03/25/25 09:39 [place] % (Auto) 9.1 % 03/25/25 09:39 Eos % (Auto) 1.3 % 03/25/25 09:39 Baso % (Auto) 0.7 % 03/25/25 09:39 Neut # (Auto) 11.36 10^3/uL (1.8-7.7) H 03/25/25 09:39 Lymph # (Auto) 1.7 10^3/uL (0.8-4.8) 03/25/25 09:39 [place] # (Auto) 1.4 10^3/uL (0.2-0.9) H 03/25/25 09:39 Eos # (Auto) 0.2 10^3/uL (0.0-0.8) 03/25/25 09:39 Baso # (Auto) 0.1 10^3/uL (0.0-0.1) 03/25/25 09:39 Nucleated RBC % (auto) 0 % 03/25/25 09:39 Nucleated RBCs # 0.0 /100WBC 03/25/25 09:39 ESR 33 mm/hr (0-10) H 03/25/25 09:39 Sodium 131 mmol/L (136-145) L 03/25/25 09:39 Potassium 4.8 mmol/L (3.5-5.1) 03/25/25 09:39 Chloride 94 mmol/L (98-107) L 03/25/25 09:39 Carbon Dioxide 25 mmol/L (22-29) 03/25/25 09:39 Anion Gap 16.8 (5-19) 03/25/25 09:39 BUN 20 mg/dL (8-23) 03/25/25 09:39 Creatinine 1.6 mg/dL (0.7-1.2) H 03/25/25 09:39 GFR Calculation 43.6 mL/min (90-130) L 03/25/25 09:39 Glucose 298 mg/dL (65-115) H 03/25/25 09:39 Estimat Average Glucose 269 03/25/25 09:39 Hemoglobin A1c 11.0 % (4.0-6.0) H 03/25/25 09:39 Calculated Osmolality 286 mOsm/kg (285-295) 03/25/25 09:39 Lactic Acid 1.5 mmol/L (0.5-2.2) 03/25/25 09:39 Calcium 8.5 mg/dL (8.5-10.5) 03/25/25 09:39 Total Bilirubin 0.2 mg/dL (0.15-1.2) 03/25/25 09:39 AST 11 U/L (0-40) 03/25/25 09:39 ALT < 5 U/L (0-41) 03/25/25 09:39 Alkaline Phosphatase 117 U/L (40-130) 03/25/25 09:39 C-Reactive Protein 91.8 mg/L (0.0-4.9) H 03/25/25 09:39 Total Protein 6.9 g/dL (6.6-8.7) 03/25/25 09:39 Albumin 2.2 g/dL (3.5-5.2) L 03/25/25 09:39 Globulin 4.7 g/dL (1.3-4.6) H 03/25/25 09:39 Triglycerides 146 mg/dL (0-150) 03/25/25 10:12 Cholesterol 190 mg/dL (0-200) 03/25/25 10:12 LDL Cholesterol, Calc 135 mg/dL (50-129) H 03/25/25 10:12 HDL Cholesterol 26 mg/dL (60-100) L 03/25/25 10:12 LDL/HDL Ratio 5.19 RATIO (0.00-3.22) H 03/25/25 10:12 Cholesterol/HDL Ratio 7.31 mg/dL (1.0-5.00) H 03/25/25 10:12 All radiology interpretation(s) finalized by discharge Discharge Plan Discharge Patient Disposition: Admitted As Inpatient Admit Provider: Jonathan Mcdonnell Clinical Impression: Foot osteomyelitis, left, Uncontrolled type 2 diabetes mellitus, with long-term current use of insulin, Non-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
--- NOTE | 2025-03-25 09:43 | XR_ITS ---
WS: [id number] Left foot, 3 views, 03/25/2025 Clinical Data: foot ulcer Comparison: Left foot, 03/24/2025 Findings: The partial amputations include the second and third toes, the distal left fourth metatarsal and the entire left fifth metatarsal and toe. There is irregularity of the tarsal bones especially the cuboid and third cuneiform. There is subcutaneous air adjacent to the base of the left fourth metatarsal and cuboid which is increased compared to yesterday. The air inferior to the cuboid has increased slightly. XR/XR foot LT min 3V* [id number] Impression: 1. Amputations of the tarsal bones remain the same. 2. Subcutaneous air adjacent to base of left fourth metatarsal and cuboid has i ncreased. 3. No change in tarsal irregularity.
[2025-03-25 09:44] LABS: Hematocrit 32.1 % (37-53); Hemoglobin 10.60 g/dL (11.27-16.99); Mean Corpuscular HGB Conc 33.0 g/dL (30-55); Mean Corpuscular Hemoglobin 28.4 pg (27-33); Mean Corpuscular Volume 86.1 fl (82-101); Nucleated Red Blood Cells % 0 %; Platelet Count 371 10^3/cmm (157-399); Red Blood Count 3.73 10^6/uL (3.85-5.65); White Blood Count 14.84 10^3/uL (3.29-11.43)
[2025-03-25 10:08] LABS: Alanine Aminotransferase < 5 U/L (0-41); Albumin Level 2.2 g/dL (3.5-5.2); Alkaline Phosphatase 117 U/L (40-130); Anion Gap 16.8 (5-19); Aspartate Amino Transferase 11 U/L (0-40); Blood Urea Nitrogen 20 mg/dL (8-23); Calcium 8.5 mg/dL (8.5-10.5); Carbon Dioxide 25 mmol/L (22-29); Chloride 94 mmol/L (98-107); Globulin 4.7 g/dL (1.3-4.6); Glucose 298 mg/dL (65-115); Osmolality Calculated 286 mOsm/kg (285-295); Potassium 4.8 mmol/L (3.5-5.1); Sodium 131 mmol/L (136-145); Total Protein 6.9 g/dL (6.6-8.7)
[2025-03-25 10:11] LABS: Lactic Sepsis W/Reflex 1.5 mmol/L (0.5-2.2)
--- OUTSIDE RECORDS SUMMARY | 2025-03-25 10:29 | XMS_ITS | Encounter Summary ---
Author Organization [facility] Address [address] [place] [address] Care Team Providers Care Livestock Rancher Name Role Phone Unavailable Primary Care Provider Unavailabl e Encounter Details Date Type Department Care Team (Late st Contact Info) Description 03/22/2025 External Device Data [facility] ABSTRACTION Provider, Abstract NO ADDRESS ON FILE Social History Tobacco Use Types Packs/Day Years [...]
--- OUTSIDE RECORDS SUMMARY | 2025-03-25 10:29 | XMS_ITS | Encounter Summary ---
Author Organization [facility] Address [address] [place] [address] Phone Care Team Providers Care Senior Executive Assistant Name Role Phone Juany Guajardo Primary Care Provider [phone] Encounter Details Date Type Department Care Team (Late st Contact Info) Description 10/28/2018 Orders Only [facility] [address] [place] [address] Rj Lutz NP Microalbuminuria Social [...] [facility] - 10/13/2018 9:35 AM CDT [facility] [address] [place], [place] [address] Rj Lutz [employer] LAB BLOOD ORDERABLES Final Result [facility] documented in this encounter Visit Diagnoses Diagnosis Microalbuminuria documented in this encounter Care Teams Senior Executive Assistant Relationship Specialty Start Date End Date Juany Guajardo DO [address] [facility] [address] [place] [address] PCP - General Family Medicine 07/23/18 documented as of this encounter
--- OUTSIDE RECORDS SUMMARY | 2025-03-25 10:29 | XMS_ITS | Clinical Summary ---
Author Organization [facility] Address [facility] [place] [address] Care Team Providers Care Senior Reliability Engineer Name Role Phone Unavailable Primary Care Provider Unavailabl e Allergies Active Allergy Reactions Criticality Noted Date Comments Heparin Nausea and Vomiting Low 12/04/2021 Nsaids (Non-Steroidal Anti-Inflammatory Drug) Anaphylaxis High 04/11/2021 Oseltamivir Nausea and Vomiting Low 07/27/2018 Sulfa (Sulfonamide Antibiotics) Unknown Low 11/07 Tobramycin Unknown 07/29/2018 Triethanolamine Analogues Rash Low 07/27/2018 Active Problems No known active problems Encounters Date Type Department Care Team Description 03/22/2025 External Device Data [facility] ABSTRACTION Provider, Abstract 02/01/2025 Results Follow-Up [address] [address] Kassy Rodrigues RN PATHOLOGY 01/25/2025 2:00 PM CDT Procedure visit [address] [place] [address] Jose Antonio Napier MD 01/25/2025 Orders Only [address] [place] [address] Sandra Garcia LPN Elevated PSA (Primary Dx); [...] RS (1 of 2 - PCV) 11/30/1978 COLORECTAL SCREENING 11/30/2004 Colorectal Cancer Screening 11/30/2004 FIT-DNA Q 3 years 11/30/2004 FIT/FOBT Q 1 year 11/30/2004 Flex Sig/CT Colonography Q 5 years 11/30/2004 RSV VACCINE (60+ or ) (1 - Risk 50-74 years 1-dose series) 11/30/2009 ZOSTER VACCINE (1 of 2) 11/30/2009 DIABETES HBA1C Q 6 MONTHS 07/04/2020 01/05/2020 INFLUENZA VACCINE (#1) 2024 COVID-19 Vaccine (3 - 2024- season) 2024, 03/06/2021 Procedures Procedure Name Priority Date/Time Associated Diagnosis Comments PATHOLOGY Routine 01/25/2025 2:43 PM CDT Elevated PSA Elevated prostate specific antigen (PSA) from Last 3 Months Results * PATHOLOGY (01/25/2025 2:43 PM CDT) CASE REPORT Surgical Pathology Report Case: [id number] Authorizing Provider: Jose Antonio Napier MD Collected: 01/25/2025 02:43 PM Ordering Location: [facility] Received: 01/26/2025 05:23 AM Pathologist: Beatriz Contreras MD Specimens: A) - Prostate, right apex B) - Prostate, right mid C) - Prostate, right base D) - Prostate, left apex E) - Prostate, left mid F) - Prostate, left base 10:27 AM CDT [facility] FINAL DIAGNOSIS A. Prostate, right apex, core biopsy - Benign prostate tissue / B. Prostate, right mid, core biopsy Histologic Type: Acinar adenocarcinoma Histologic Grade (Amanda Pattern) Primary (Predominant) Pattern: Grade 3 Secondary (Worst Remaining) Pattern: Grade 3 Total [place] Score: 6 Grade Group: 1 Percentage of [...] Grade Group: 1 Percentage of Pattern 4 ([place] Score 7): N/A Cribriform Glands (Amanda score [...] biopsy Histologic Type: Acinar adenocarcinoma Histologic Grade ([place] Pattern) Primary (Predominant) Pattern: Grade 4 Secondary (Worst Remaining) Pattern: Grade 3 Total [place] Score: 7 Grade Group: 3 Percentage of Pattern 4 ([place] Score 7): 80% Cribriform Glands (Amanda score [...] Grade Group: 3 Percentage of Pattern 4 ([place] Score 7): 80% Cribriform Glands (Amanda score [...] Grade Group: 5 Percentage of Pattern 4 (Amanda Score 7): 80% Cribriform Glands ([place] score 7 or 8): Not identified Intraductal Carcinoma: Not identified Tumor Quantitation: Number of positive cores/Total number of cores: 2 out of 3 Percent of biopsy tissue involved by tumor: 55% Total linear millimeters of carcinoma: 17 mm Periprostatic Fat Invasion: Not identified Seminal Vesicle Invasion: Not identified REV:CLB Beatriz Contreras MD [id number] 10:27 AM [facility] at 1027 CDT DIAGNOSIS COMMENT After review of the H&E-stained slides, a PIN 3 immunohistochemical stain cocktail was performed on block B1 and shows small areas of acinar adenocarcinoma with absent staining for basal cell markers and increased staining with AMACR. 10:27 AM [facility] GROSS DESCRIPTION A. Received in formalin labeled [facility] right apex are 3 cores of pale-fraser soft tissue, 0.9 cm in greatest dimension. The specimen is submitted entirely in A1. B. Received in formalin labeled [place] - right mid are multiple cores of pale-fraser soft tissue, 2.0 cm in greatest dimension. The specimen is submitted entirely in B1. C. Received in formalin labeled [place] - right base are 3 cores of pale-fraser soft tissue, 1.4 cm in greatest dimension. The specimen is submitted entirely in C1. D. Received in formalin labeled [place] - left apex are multiple cores of pale-fraser soft tissue, 2.0 cm in greatest dimension. The specimen is submitted entirely in D1. E. Received in formalin labeled [facility] left mid are 2 cores of pale-fraser soft tissue, 1.7 cm in greatest dimension. The specimen is submitted entirely in E1. F. Received in formalin labeled [facility] base are 3 cores of pale-fraser soft tissue, 1.4 cm in greatest dimension. The specimen is submitted entirely in F1. Grossed by: Leidy Hernandez MS, PA (ASCP) 10:27 AM [facility] CLINICAL INFORMATION R97.20 - Elevated PSA [ICD-10-CM] R97.20 - Elevated prostate specific antigen (PSA) [ICD-10-CM] 5 10:27 AM [facility] COMMENT The [employer] voice-activated dictation system may have been used [...] determined by the [facility] of [facility] in compliance with CLIA'88 regulations. Some of these tests rely on the use of analyte specific reagents and are subject to specific labeling requirements by the FDA. All controls show appropriate reactivity. This testing was developed by the [facility] of [facility]. It has not been cleared or approved by the FDA. The FDA has determined that such clearance or approval is not necessary. 10:27 AM CDT [facility] Tissue ENTIRE PROSTATE / Unknown Collection / [...] Napier MD PATHOLOGY/CYTOLOGY ORDERABLE S Final Result [facility] CLIA # [id number] [address] [place] [id number] from Last 3 Months Insurance MEDICARE PART A AND B
--- OUTSIDE RECORDS SUMMARY | 2025-03-25 10:29 | XMS_ITS | Encounter Summary ---
Author Organization [facility] Address [address] [place] [address] Phone Care Team Providers Care Operations Project Manager Name Role Phone Juany Guajardo DO Primary Care Provider [phone] Encounter Details Date Type Department Care Team (Late st Contact Info) Description 10/27/2018 Orders Only [facility] [address] [place] [address] Doug Russ MD Chronic kidney disease stage 2 Social History [...] 2 documented in this encounter Care Teams Operations Project Manager Relationship Specialty Start Date End Date Juany Guajardo DO [address] [place] [address] PCP - General Family Medicine 07/23/18 documented as of this encounter
--- OUTSIDE RECORDS SUMMARY | 2025-03-25 10:29 | XMS_ITS | Encounter Summary ---
Author Organization [facility] Address [address] [place] [address] Phone Care Team Providers Care Metal Can Inspector Name Role Phone Juany Guajardo DO Primary Care Provider Encounter Details Date Type Department Care Team (Late st Contact Info) Description 04/15/2019 Orders Only [facility] [address] [place] [address] Doug Russ MD Chronic kidney [...] 2 documented in this encounter Care Teams Metal Can Inspector Relationship Specialty Start Date End Date Juany Guajardo DO [address] [place] [address] PCP - General Family Medicine 07/23/18 documented as of this encounter
--- OUTSIDE RECORDS SUMMARY | 2025-03-25 10:29 | XMS_ITS | Clinical Summary ---
Author Organization [facility] Address [address] [address] Care Team Providers Care Hydrostatic Tubing Tester Name Role Phone Juany Guajardo DO Primary [...] Recently Relevant to Health Maintenance Insurance Medicaid [place] ([id number]) Care Teams Hydrostatic Tubing Tester Relationship Specialty Start Date End Date Juany Guajardo DO [address] [facility] [address] [place] [address] PCP - General Family Medicine 07/23/18
--- OUTSIDE RECORDS SUMMARY | 2025-03-25 10:29 | XMS_ITS | Encounter Summary ---
Author Organization [facility] Address [address] [place] [address] Phone Care Team Providers Care Twister In Name Role Phone Juany Guajardo DO Primary Care Provider Reason for Visit * Reason Comments Med Refill Encounter Details Date Type Department Care Team (Late st Contact Info) Description 12/05/2020 Refill [facility] [address] [place] [address] Doug Russ MD Social History Tobacco Use Types Packs/Day Years [...] on filedocumented in this encounter Care Teams Twister In Relationship Specialty Start Date End Date Juany Guajardo DO [address] [place] [address] PCP - General Family Medicine 07/23/18 documented as of this encounter
--- NOTE | 2025-03-25 10:49 | P.HP_ITS ---
<Statement entered by Jonathan Mcdonnell MD - 03/25/25 21:19> Patient case discussed with ED provider and reviewed and discussed with SCOTT including E&M. Providers/Chief Complaint 2 Admitting Physician: Dr. Mcdonnell Primary Care Provider: Juany Guajardo DO Chief Complaint: FOOT WOUND History of Present Illness Marquis Ballard is a 64 year old male w/ pmhx of DM2, HTN, MDD, dyslipidemia, tobacco dependency, and PAD. He presents to the ED today w/ c/o increased discomfort to left foot. An extensive ulcer to left foot noted laterally and to heel. Patient does follow-up in wound care regularly and was recently started on Augmentin and levofloxacin on 03/24, although pain continued to increase. Wound care obtained an X-ray of the Left foot and recommended obtaining a CT for further investigation. Patient reports that he began to have pain to his Left foot began on yesterday morning 03/24. He describes the pain as dull and constant and rates it a 5/10 on pain scale. He reports this morning when he woke up the pain became more severe. He denies taking any wreu-ord-vrsmoek medications to assist with the pain, reports he just rested his foot most of the day. He reports he has not been taking his insulin or checking his blood sugars x 1 month, denies taking his antihypertensive medications. He states he has trouble since his and currently lives alone. Patient to be admitted under inpatient status to hospitalist services with podiatry consult services, and orthopedic consult services for further medical management and care. While in ED a CBC, CMP, ESR, CRP, lactic acid ordered, reviewed and results as follows: WBC 14.84, Neut 11.36, [place] 1.4, RBC 3.73, Hgb 10.6, HCT 32.1, RDW 12.0, Plt 371. Na 1 31, K 4.8, Osmo 286, glucose 298. Wet Pan Operator 1.6, BUN 20, GFR 43.6, alk phos 117. LFTs WNL. ESR 33, CRP 91.8, lactic acid 1.5. Blood cultures obtained, pending. Wound culture and Gram stain obtained, pending. While in ED the following medications were administered: Vancomycin 1000 mg IV. Review of Systems 2 General: Reports: 10 or more systems reviewed and unremarkable except in HPI and below Medications/Allergies Home Medications ?Medication ?Instructions ?Recorded ?Confirmed ?Last Taken ?Type acetaminophen 500 mg tablet 500 mg PO TID PRN Pain #0 tabs 10/27/19 03/10/25 10/11/24 Rx (Tylenol Extra Strength) ascorbic acid (vitamin C) 1,000 mg 1 g PO QAM 12/13/20 03/10/25 02/04/25 History tablet (Vitamin C) aspirin 81 mg tablet,delayed 81 mg PO DAILY 06/14/21 1 05/11/24 02/04/25 History release articulating AFO with accommodated #1 ea 12/04/21 1207/3010/11/24 Rx orthotic and toe filler to left cam boot #1 ea 04/29/22 03/10/2510/29 Rx 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,t rail turner,cont #1 ea 10/02/22 03/10/25 Rx (Dexcom G7 Roaster Supervisor) pen needle, diabetic 32 gauge x ##100 10/16/22 5 10/11/24 Rx / (TechLITE Pen Needle) atorvastatin 80 mg tablet 80 mg PO BEDTIME #90 tabs 03/10/25 02/04/25 Rx blood sugar diagnostic (OneTouch #300 ea 03/10/2407/3010/11/24 Rx Ultra Test strips) lancets (Accu-Chek Softclix #100 ea 03/10/24 03/10/25 10/11/24 Rx Lancets) diabetic shoes #1 ea 07/13/24 03/10/2510/29 Rx insulin pump cart,auto,BT,G6/7 #15 ea 09/17/24 5 10/11/24 Rx (Omnipod 5 G6-G7 Pods (Gen 5) subcutaneous cartridge) insulin pump cartridge,auto #1 ea 09/17/24 03/10/25 Rx dose,BT,G6/G7 with controller subcutaneous (Omnipod 5 G6-G7 Intro Kit(Gen 5) subcutaneous cartridge and controller) clopidogrel 75 mg tablet 75 mg PO DAILY 10/25/2407/3002/04/25 History gabapentin 100 mg capsule 100 mg PO TID 10/25/2403/1002/04/25 History insulin lispro 100 unit/mL 15 unit SUBCUT TID PRN bloo d sugar 10/25/24 03/10/25 Unknown History subcutaneous pen (Humalog KwikPen (U-100) Insulin) metoprolol tartrate 25 mg tablet 25 mg PO BID #180 tab s 10/26/24 03/10/25 02/04/25 Rx duloxetine 30 mg capsule,delayed 30 mg PO BID #60 caps 12/28/24 03/10/25 02/04/25 Rx release 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 sensor (Dexcom G7 #9 ea 01/14/25 5 Unknown Rx Sensor device) gauze bandage 2 1/4 X 3 yard #96 ea 02/05/25 03/10/25 Unknown Rx (Kerlix) insulin glargine-yfgn 100 unit/mL 55 unit SUBCUT DAILY 02/05/25 03/10/25 02/04/25 History (3 mL) subcutaneous pen (Semglee (insulin glargine-yfgn) Pen) metformin 1,000 mg tablet 1,000 mg PO BID 02/05/2507/30 Unknown History mupirocin 2 % topical ointment 1 applic topical BID #2 2 grams 02/05/25 03/10/25 Unknown Rx (Centany) white petrolatum 1 X 8 bandage #200 ea 02/05/2507/30 Unknown Rx (Vaseline Petrolatum Gauze) clindamycin HCl 300 mg capsule 300 mg PO TID #21 caps 03/24/25 03/24/25 Unknown Rx (Cleocin HCl) levofloxacin 500 mg tablet 500 mg PO DAILY #10 tabs 03/24/25 Unknown Rx Allergies Allergy/AdvReac Type Severity Reaction Status Date / Time Sulfa (Sulfonamide Allergy Mild Unknown Verified 03/25/25 09:18 Antibiotics) NSAIDS (Non-Steroidal Allergy Unknown ALGY-Anaphy Verified 03/25/25 09:18 Anti-Inflamma (NSAIDS laxis,Unkno (Non-Steroidal wn Anti-Inflammatory Drug)) oseltamivir (From Tamiflu) Allergy ADR-Nausea Verified 03/25/25 09:18 triethanolamine (From Allergy ALGY-Rash Verified 03/25/25 09:18 Cerumenex) PFSH Acute 2 PFSH: Medical History (Updated 03/25/25 @ 15:01 by Brayan Suarez DO) Psychiatric care Uncontrolled type 2 diabetes mellitus, with long-term current use of insulin Tobacco dependency HTN (hypertension), benign Major depressive disorder Low back pain radiating down leg Essential hypertension Hypotestosteronemia in male Dyslipidemia Surgical History History of amputation of lesser toe of both feet H/O total hip arthroplasty Brionna Accolade II total hip system: The size 58 mm solid back acetabular shell with an F alpha code and an MDM liner size 46 mm inner diameter by F alpha code. An Accolade II size 6 x 127 degree neck angle hip stem, femoral head size 28 mm outer diameter and +0 mm offset inside of an MDM insert size inner diameter 28 mm to match the 46F History of total left hip arthroplasty Hx of cataract extraction History of incision and drainage left foot History of amputation of toe Right second and left second and third History of eye surgery Status post vasectomy Family History Father CAD (coronary artery disease) Diabetes Mother Cancer Chronic kidney disease (CKD) Diabetes Lung disease Grandmother Dementia Stroke Family/Other Suicide Other Hypertension Denies family history of Clotting disorder Anesthesia complication Bleeding disorder Social History Smoking and tobacco/nicotine status: current every day tobacco/nicotine user cigarettes Packs smoked per day: 1 Alcohol intake: current Alcohol intake frequency: holidays/special occasions only Substance/Drug Use: never Vitals/I&O/Wt Last Vital Signs Temp 98.3 F 03/25/25 09:17 Pulse 94 03/25/25 09:17 Resp 16 03/25/25 09:17 BP 173/84 03/25/25 09:17 Pulse Ox 97 03/25/25 09:17 O2 Del Method Room Air 03/25/25 09:17 Weight last 48 hrs Weight 81.374 kg Physical Exam 2 Narrative: General: A&Ox4, Resting in bed on RA, no apparent distress. Reports 5/10 on pain scale. HEENT: Normo-cephalic, atraumatic, grossly unremarkable exam Cardio: NSR, normal S1-S2 w/o any murmurs, rubs, or gallops and JVD normal Respiratory: Clear to bilateral upper and lower lobes on auscultation GI: Abd soft, non-tender, non-distended, normo-active bowel sounds present Neuro: Moves all extremities, no sensory deficits, Normal speech Behavior: Appropriate and cooperative Extremities: Left lateral aspect of the foot with with eschar and heel with unstageable ulcer and eschar and surrounding tissue with erythema and 1+ edema. Please refer to pictures in chart. Data 03/25/25 09:39 03/25/25 09:39 Other Labs: 03/25: Left Foot XR: reviewed and results as follows: Amputations of the tarsal bones remain the same. Subcutaneous air adjacent to base of left fourth metatarsal and cuboid has increased. No change in tarsal irregularity. Micro: Microbiology 03/25/25 10:11 Blood Culture - Preliminary Blood SPECIMEN COLLECTED 03/25/25 10:12 Blood Culture - Preliminary Blood SPECIMEN COLLECTED A&P Assessment and plan 1. 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 With recommendations to schedule a CT. - 03/25: Left Foot XR: Amputations of the tarsal bones remain the same. S ubcutaneous air adjacent to base of left fourth metatarsal and cuboid has increased. No change in tarsal irregularity - Blood cultures obtained, pending. - Wound culture and Gram Stain ordered, pending. Anaerobic culture obtained, pending. - Podiatry consulted- Dr. Morgan, recommendations and expertise appreciated. Recommendations Left BKA. Spoke with general surgery, orthopedics consulted. - Orthopedics consulted- Dr. Suarez, recommendations and expertise appreciated. Left BKA scheduled for 03/26/2025 -Cardiology consulted due to significant PAD. Duplex scan to left lower extremity artery ordered. - 03/25: Duplex scan left lower extremity artery: Occlusion of the arteries in the calf. Generally decreased flow through the left lower extremity. Cardiology cleared for surgery at 03/25 at 1535 - Continue IV abx vancomycin IV, meropenem 1gm IV - Fall precautions - Neurovascular checks q4hr - Pain analgesics ordered, PRN - CBC, CMP, ordered, dly. 2. DM2 (diabetes mellitus, type 2): - A1c ordered, pending. - Blood glucose monitoring, ACHS - Moderate regimen sliding scale - Hypoglycemic protocol - Cardiac Carb consistent diet - Hold home medication metformin - Continue home Lantus SC 3. Diabetic neuropathy: - Continue home medication gabapentin 100mg PO TID 4. PAD (peripheral artery disease): - Recent angiogram performed on 10/12/24 which showed a total occlusion of the proximal to distal superficial femoral artery treated which was treated with 2 stents. Severe stenosis of the popliteal artery was identified and treated with balloon angioplasty. - Continue home medication ASA 81mg PO dly and Plavix 75mg PO dly, and atorvastatin 80 mg PO dly. - 10/12/24: Prop And Scenery Maker Procedure: Totally occluded proximal to mid SFA with severe stenosis of distal SFA and popliteal artery. Status post successful revascularization with 2 stents placed in proximal to mid SFA and distal SFA and balloon angioplasty of popliteal artery.. Right Superficial Femoral Artery was treated with two Balloon, Stents. 5. Tobacco dependency: - Current smoker - Offered Nicotine patch during hospitalization 6. Essential hypertension: - Contnue home medication metoprolol 25mg PO dly 7. Dyslipidemia: - Continue home medication Atorvastain 80mg PO dly. - Lipid panel ordered, pending. 8. Major depressive disorder, recurrent episode, severe, with psychosis: - Continue home medication duloxetine 30mg PO dly 9. Low back pain radiating down leg: - Continue home medication Methocarbamol 500mg PO BID 10. Noncompliance w/medication treatment due to intermit use of medication: -With much chart review patient has been noted to be persistently non-compliant with his medication since his almost two years ago. Plan: CODE STATUS: Full code GI prophylaxis: Protonix 40 mg PO dly VTE prophylaxis: SCDs, Lovenox 30mg SC x1 dose then hold for surgery PDMP PDMP Reviewed: Not Reviewed Attestations 2 Medical Necessity Statement*: Admitted under inpatient status. Given complexity of patient's presentation, scheduled L BKA, co-morbid conditions, and required intensity of treatment, a hospitalization exceeding two midnights is anticipated. and High Time for a total of 78 minutes, includes reviewing past or interval history, examining/interviewing patient, placing orders, counseling patient/family/other support, updating patient/family/other support, discussing plan of care with staff, communicating with other healthcare providers, documenting encounter and coordinating care Diagnoses Non-pressure chronic ulcer of other part of left foot with necrosis of muscle L97.523 DM2 (diabetes mellitus, type 2) E11.9 Diabetic neuropathy E11.40 PAD (peripheral artery disease) I73.9 Tobacco dependency F17.200 Essential hypertension I10 Dyslipidemia E78.5 Major depressive disorder, recurrent episode, severe, with psychosis F33.3 Low back pain radiating down leg M54.50; M79.606 Noncompliance w/medication treatment due to intermit use of medication Z91.148
--- NOTE | 2025-03-25 11:06 | PM.CONSULT ---
Providers/Reason For Consult Consulting Physician/Specialty*: Kike Morgan D.P.M. Reason for Consult*: Left diabetic foot infection Primary Care Provider: Juany Guajardo DO History of Present Illness History of Present Illness Marquis Ballard is a 64 year old male presents to the emergency department with complaints of worsening left foot wound has foul odor increased redness left lateral foot. He also has a wound to left posterior heel. Patient being followed at wound care clinic has been on Augmentin he has a long list of previous partial amputations that were not done by current podiatry staff at this hospital. Has a history of toe amputations 2 through 5 left foot. History of partial resection of left fourth metatarsal and a history of left fifth metatarsectomy. Review of Systems General: Reports: 10 or more systems reviewed and unremarkable except in HPI and below Const: Denies: fever(s) or chills Eyes: Denies: change in vision Card: Denies: chest pain or palpitations Resp: Denies: dyspnea or productive cough GI: Denies: abdominal pain, nausea or vomiting : Denies: flank pain Musc: Reports: extremity swelling, joint stiffness and deformity Skin/Breast: Reports: erythema, sores, changes in skin color, dry skin, nail changes and change in hair Neuro: Reports: numbness in extremities, sensory changes and difficulty walking Psych: Denies: suicidal ideation Endo: Denies: change in body appearance Ernesto/Lymph: Denies: tender lymph nodes Medications/Allergies Home Medications ?Medication ?Instructions ?Recorded ?Confirmed ?Last Taken ?Type acetaminophen 500 mg tablet 500 mg PO TID PRN Pain #0 tabs 10/27/19 03/25/25 10/11/24 Rx (Tylenol Extra Strength) ascorbic acid (vitamin C) 1,000 mg 1 g PO QAM 12/13/20 03/25/25 02/04/25 History tablet (Vitamin C) aspirin 81 mg tablet,delayed 81 mg PO DAILY 06/14/21 03/25/25 03/24/25 History release articulating AFO with accommodated #1 ea 12/04/21 03/25/25 10/11/24 Rx orthotic and toe filler to left cam boot #1 ea 04/29/22 03/25/25 10/11/24 Rx 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,cloth printing back tender,cont #1 ea 10/02/22 03/25/2525 Rx (Dexcom G7 [place] Drill Operator) pen needle, diabetic 32 gauge x ##100 10/16/22 03/25/25 10/11/24 Rx 5/32 (TechLITE Pen Needle) atorvastatin 80 mg tablet 80 mg PO BEDTIME #90 tabs 03/10/24 03/25/25 02/04/25 Rx blood sugar diagnostic (OneTouch #300 ea 03/10/24 03/25/25 10/11/24 Rx Ultra Test strips) lancets (Accu-Chek Softclix #100 ea 03/10/24 03/25/25 10/11/24 Rx Lancets) diabetic shoes #1 ea 07/13/24 03/25/25 10/11/24 Rx insulin pump cart,auto,BT,G6/7 #15 ea 09/17/24 03/25/25 10/11/24 Rx (Omnipod 5 G6-G7 Pods (Gen 5) subcutaneous cartridge) insulin pump cartridge,auto #1 ea 09/17/24 03/25/25 10/11/24 Rx dose,BT,G6/G7 with controller subcutaneous (Omnipod 5 G6-G7 Intro Kit(Gen 5) subcutaneous cartridge and controller) clopidogrel 75 mg tablet 75 mg PO DAILY 10/25/24 03/25/25 02/04/25 History gabapentin 100 mg capsule 100 mg PO TID 10/25/24 03/25/25 02/04/25 History insulin lispro 100 unit/mL 15 unit SUBCUT TID PRN blood sugar 10/25/24 03/25/25 Unknown History subcutaneous pen (Humalog KwikPen (U-100) Insulin) metoprolol tartrate 25 mg tablet 25 mg PO BID #180 tabs 10/26/24 03/25/25 02/04/25 Rx duloxetine 30 mg capsule,delayed 30 mg PO BID #60 caps 12/28/24 03/25/25 02/04/25 Rx release 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 sensor (Dexcom G7 #9 ea 01/14/25 03/25/25 Unknown Rx Sensor device) gauze bandage 2 1/4 X 3 yard #96 ea 02/05/25 03/25/25 Unknown Rx (Kerlix) insulin glargine-yfgn 100 unit/mL 55 unit SUBCUT DAILY 02/05/25 03/25/25 02/04/25 History (3 mL) subcutaneous pen (Semglee (insulin glargine-yfgn) Pen) metformin 1,000 mg tablet 1,000 mg PO BID 02/05/25 03/25/25 Unknown History mupirocin 2 % topical ointment 1 applic topical BID #22 grams 02/05/25 03/25/25 Unknown Rx (Centany) white petrolatum 1 X 8 bandage #200 ea 02/05/25 03/25/25 Unknown Rx (Vaseline Petrolatum Gauze) clindamycin HCl 300 mg capsule 300 mg PO TID #21 caps 03/24/25 03/25/25 03/24/25 Rx (Cleocin HCl) levofloxacin 500 mg tablet 500 mg PO DAILY #10 tabs 03/24/25 03/25/25 03/24/25 Rx Allergies Allergy/AdvReac Type Severity Reaction Status Date / Time Sulfa (Sulfonamide Allergy Mild Unknown Verified 03/25/25 09:18 Antibiotics) NSAIDS (Non-Steroidal Allergy Unknown ALGY-Anaphy Verified 03/25/25 09:18 Anti-Inflamma (NSAIDS laxis,Unkno (Non-Steroidal wn Anti-Inflammatory Drug)) oseltamivir (From Tamiflu) Allergy ADR-Nausea Verified 03/25/25 09:18 triethanolamine (From Allergy ALGY-Rash Verified 03/25/25 09:18 Cerumenex) PFSH Acute PFSH: Medical History (Updated 03/25/25 @ 15:56 by Kike Morgan DPM) Psychiatric care Uncontrolled type 2 diabetes mellitus, with long-term current use of insulin Tobacco dependency HTN (hypertension), benign Major depressive disorder Low back pain radiating down leg Essential hypertension Hypotestosteronemia in male Dyslipidemia Surgical History (Updated 03/25/25 @ 15:56 by Kike Morgan DPM) History of amputation of lesser toe of both feet H/O total hip arthroplasty Brionna Accolade II total hip system: The size 58 mm solid back acetabular shell with an F alpha code and an MDM liner size 46 mm inner diameter by F alpha code. An Accolade II size 6 x 127 degree neck angle hip stem, femoral head size 28 mm outer diameter and +0 mm offset inside of an MDM insert size inner diameter 28 mm to match the 46F History of total left hip arthroplasty Hx of cataract extraction History of incision and drainage left foot History of amputation of toe Right second and left second and third History of eye surgery Status post vasectomy Family History Father CAD (coronary artery disease) Diabetes Mother Cancer Chronic kidney disease (CKD) Diabetes Lung disease Grandmother Dementia Stroke Family/Other Suicide Other Hypertension Denies family history of Clotting disorder Anesthesia complication Bleeding disorder Social History Smoking and tobacco/nicotine status: current every day tobacco/nicotine user cigarettes Packs smoked per day: 1 Alcohol intake: current Alcohol intake frequency: holidays/special occasions only Substance/Drug Use: never Vitals/I&O/Wt Last Vital Signs Temp 98.3 F 03/25/25 09:17 Pulse 94 03/25/25 09:17 Resp 16 03/25/25 09:17 BP 173/84 03/25/25 09:17 Pulse Ox 97 03/25/25 09:17 O2 Del Method Room Air 03/25/25 09:17 Weight last 48 hrs Weight 179 lb 6.4 oz Physical Exam Narrative: GENERAL: Patient is alert and oriented ?3 and in no acute distress. The following is a focused bilateral lower extremity exam. VASCULAR: Dorsalis pedis diminished. Posterior tibial arteries diminished. Capillary refill time less than 5 seconds to the distal hallux bilaterally. Calf is supple and nontender proximally and distally. Diminished pedal hair growth. NEUROLOGICAL: Protective sensation intact 0/10 sites, tested with [place] Yasmine monofilament to bilateral feet. DERMATOLOGICAL: Left posterior heel ulceration unstageable has fluctuance and bogginess no purulence. Full-thickness wound to the lateral cuboid left foot probes to bone does have some granulation coverage, no purulent drainage there is periwound erythema. Sinus tract adjacent to the distal fourth metatarsal with surrounding erythema hyperkeratotic rim and fibrotic base. There is no proximal lymphangitic streaking. Foul odor to the left lateral foot wound. Burn wounds x 2 left knee without acute signs of infection. MUSCULOSKELETAL: History of amputation of toes 2,3, 4 and 5 left foot. History of left fifth metatarsal resection. History of partial resection of left fourth metatarsal. Data 03/25/25 09:39 03/25/25 09:39 Micro: Microbiology 03/25/25 10:11 Blood Culture - Preliminary Blood SPECIMEN COLLECTED 03/25/25 10:12 Blood Culture - Preliminary Blood SPECIMEN COLLECTED A&P Assessment and plan 1. Ulcer of left heel: 2. Non-pressure chronic ulcer of other part of left foot with necrosis of bone: 3. History of amputation: History of amputation of toes 2,3, 4 and 5 left foot. History of left fifth metatarsal resection. History of partial resection of left fourth metatarsal. These amputations were not done by current staff of podiatry department at this hospital. 4. Gangrene of left foot: Plan: X-ray left foot 3 views taken today 03/25/2025 demonstrates erosive changes consistent with osteomyelitis involving the base of the left fourth metatarsal as well as the cuboid there is erosive new bony destruction compared to previous x-rays as well as sequestrum and involucrum that indicates underlying chronic osteomyelitis. Soft tissue emphysema adjacent to cuboid that is new compared to previous x-ray taken yesterday 03/24/2025. Patient examined and evaluated, findings and treatment options discussed with patient at length. Given the progression of acute soft tissue emphysema and acute bony destruction in the presence of underlying chronic osteomyelitis and consideration of lack of functional amputation at the level of current infection recommended higher level of amputation patient is agreeable and states he is open to below-knee amputation of the left lower extremity for infection source control and more functional option for prosthesis. Patient's condition warrants consideration for a more proximal level of amputation, specifically a below-knee or above-knee amputation. As a comprehensive advisor, performing a BKA is beyond my scope of practice, thereby necessitating a referral for an additional surgical consultation to determine the appropriate course of action. Mr. Ballard demonstrated comprehension of the situation and the need for further surgical intervention. Patient expressed agreement to proceed with the higher level of amputation as recommended. Patient understands the need for another surgical consultation with the appropriate expertise for further evaluation and has agreed to the referral process. PDMP PDMP Reviewed: Not Reviewed Coding Level of Care Code Acute Code for Chg Fwd Diagnoses Ulcer of left heel L97.429 Non-pressure chronic ulcer of other part of left foot with necrosis of bone L97.524 History of amputation Z89.9 Gangrene of left foot I96
[2025-03-25 13:13] LABS: Cholesterol 190 mg/dL (0-200); HDL Cholesterol 26 mg/dL (60-100); Triglycerides 146 mg/dL (0-150)
[2025-03-25 13:20] LABS: Estmated Average Glucose 269; Hemoglobin A1C 11.0 % (4.0-6.0)
--- NOTE | 2025-03-25 13:38 | USR_ITS ---
PROCEDURE INFORMATION: Exam: US Duplex Left Lower Extremity Arteries Or Arterial Bypass Grafts Exam date and time: 03/25/2025 2:08 PM Age: 64 years old Clinical indication: Pain; Nonhealing ulcers; Leg, lower; Left; Additional Info: PAD, NEEDING AMP TECHNIQUE: Imaging protocol: Left Real-time duplex scan of the arteries or arterial bypass grafts of the left lower extremity with 2-D francis scale, color Doppler flow and spectral waveform analysis. Images documented and saved. COMPARISON: CT angio abd aorta runof [id number] 09/15/2024 2:10 PM FINDINGS: Left common femoral artery: No occlusion or significant stenosis. Normal triphasic waveform. PSV 88 cm/sec. Left superficial femoral artery: No occlusion or significant stenosis. Monophasic waveform. PSV 95 cm/sec in the mid femoral artery. Left popliteal artery: No occlusion or significant stenosis. Monophasic waveform. PSV 28 cm/sec. Left calf/foot arteries: No flow identified in the anterior or posterior tibial or dorsalis pedis arteries. Lymph nodes: Prominent left groin lymph node measuring 12 mm short axis. US/CV arterial duplex [facility] [id number] IMPRESSION: Occlusion of the arteries in the calf. Generally decreased flow through the left lower extremity.
[2025-03-25 13:57] VITALS: BP 138/90; PULSE 90; RESP 16; TEMP 37.2; O2SAT 93
--- NOTE | 2025-03-25 14:50 | PM.CONSULT ---
Providers/Reason For Consult Consulting Physician/Specialty*: Brayan Saurez DO/orthopedic surgery Reason for Consult*: Consult for left below the knee amputation Patient has chronic left foot wounds with chronic osteomyelitis, diabetic and peripheral vascular disease Attending Physician: Jonathan Mcdonnell Primary Care Provider: Juany Guajardo DO History of Present Illness History of Present Illness Marquis Ballard is a 64 year old male chronic foot wounds with multiple amputations and has ulcerations being treated and followed in the wound clinic. He recently has been on Augmentin he explained of some increased discomfort and pain today denies any fevers or chills at home. He been diagnosed with diabetic foot ulcers and osteomyelitis and had revision amputations at this point in time he is been seen and evaluated by podiatry and at this point in time no further limb salvage options and recommending a below the knee amputation which is why orthopedics has been consulted there is no wound drainage and currently a Betadine soaked dressing is in place. Patient currently has cardiovascular on in place. Patient denies any fevers or chills Review of Systems General: Reports: 10 or more systems reviewed and unremarkable except in HPI and below Medications/Allergies Home Medications ?Medication ?Instructions ?Recorded ?Confirmed ?Last Taken ?Type acetaminophen 500 mg tablet 500 mg PO TID PRN Pain #0 tabs 10/27/19 03/25/25 10/11/24 Rx (Tylenol Extra Strength) ascorbic acid (vitamin C) 1,000 mg 1 g PO QAM 12/13/20 03/25/25 02/04/25 History tablet (Vitamin C) aspirin 81 mg tablet,delayed 81 mg PO DAILY 06/14/21 03/25/25 03/24/25 History release articulating AFO with accommodated #1 ea 12/04/21 03/25/25 10/11/24 Rx orthotic and toe filler to left cam boot #1 ea 04/29/22 03/25/25 10/11/24 Rx 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,retail inventory control clerk,cont #1 ea 10/02/22 03/25/25 10/11/24 Rx (Dexcom G7 Financial Counselor) pen needle, diabetic 32 gauge x ##100 10/16/22 03/25/25 10/11/24 Rx 5/32 (TechLITE Pen Needle) atorvastatin 80 mg tablet 80 mg PO BEDTIME #90 tabs 03/10/24 03/25/25 02/04/25 Rx blood sugar diagnostic (OneTouch #300 ea 03/10/24 03/25/25 10/11/24 Rx Ultra Test strips) lancets (Accu-Chek Softclix #100 ea 03/10/24 03/25/25 10/11/24 Rx Lancets) diabetic shoes #1 ea 07/13/24 03/25/25 10/11/24 Rx insulin pump cart,auto,BT,G6/7 #15 ea 09/17/24 03/25/25 10/11/24 Rx (Omnipod 5 G6-G7 Pods (Gen 5) subcutaneous cartridge) insulin pump cartridge,auto #1 ea 09/17/24 03/25/25 10/11/24 Rx dose,BT,G6/G7 with controller subcutaneous (Omnipod 5 G6-G7 Intro Kit(Gen 5) subcutaneous cartridge and controller) clopidogrel 75 mg tablet 75 mg PO DAILY 10/25/24 03/25/25 02/04/25 History gabapentin 100 mg capsule 100 mg PO TID 10/25/24 03/25/25 02/04/25 History insulin lispro 100 unit/mL 15 unit SUBCUT TID PRN blood sugar 10/25/24 03/25/25 Unknown History subcutaneous pen (Humalog KwikPen (U-100) Insulin) metoprolol tartrate 25 mg tablet 25 mg PO BID #180 tabs 10/26/24 03/25/25 02/04/25 Rx duloxetine 30 mg capsule,delayed 30 mg PO BID #60 caps 12/28/24 03/25/25 02/04/25 Rx release 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 sensor (Dexcom G7 #9 ea 01/14/25 03/25/25 Unknown Rx Sensor device) gauze bandage 2 1/4 X 3 yard #96 ea 02/05/25 03/25/25 Unknown Rx (Kerlix) insulin glargine-yfgn 100 unit/mL 55 unit SUBCUT DAILY 02/05/25 03/25/25 02/04/25 History (3 mL) subcutaneous pen (Semglee (insulin glargine-yfgn) Pen) metformin 1,000 mg tablet 1,000 mg PO BID 02/05/25 03/25/25 Unknown History mupirocin 2 % topical ointment 1 applic topical BID #22 grams 02/05/25 03/25/25 Unknown Rx (Centany) white petrolatum 1 X 8 bandage #200 ea 02/05/25 03/25/25 Unknown Rx (Vaseline Petrolatum Gauze) clindamycin HCl 300 mg capsule 300 mg PO TID #21 caps 03/24/25 03/25/25 03/24/25 Rx (Cleocin HCl) levofloxacin 500 mg tablet 500 mg PO DAILY #10 tabs 03/24/25 03/25/25 03/24/25 Rx Allergies Allergy/AdvReac Type Severity Reaction Status Date / Time Sulfa (Sulfonamide Allergy Mild Unknown Verified 03/25/25 09:18 Antibiotics) NSAIDS (Non-Steroidal Allergy Unknown ALGY-Anaphy Verified 03/25/25 09:18 Anti-Inflamma (NSAIDS laxis,Unkno (Non-Steroidal wn Anti-Inflammatory Drug)) oseltamivir (From Tamiflu) Allergy ADR-Nausea Verified 03/25/25 09:18 triethanolamine (From Allergy ALGY-Rash Verified 03/25/25 09:18 Cerumenex) PFSH Acute PFSH: Medical History (Updated 03/25/25 @ 15:01 by Brayan Suarez DO) Psychiatric care Uncontrolled type 2 diabetes mellitus, with long-term current use of insulin Tobacco dependency HTN (hypertension), benign Major depressive disorder Low back pain radiating down leg Essential hypertension Hypotestosteronemia in male Dyslipidemia Surgical History History of amputation of lesser toe of both feet H/O total hip arthroplasty [place] Accolade II total hip system: The size 58 mm solid back acetabular shell with an F alpha code and an MDM liner size 46 mm inner diameter by F alpha code. An Accolade II size 6 x 127 degree neck angle hip stem, femoral head size 28 mm outer diameter and +0 mm offset inside of an MDM insert size inner diameter 28 mm to match the 46F History of total left hip arthroplasty Hx of cataract extraction History of incision and drainage left foot History of amputation of toe Right second and left second and third History of eye surgery Status post vasectomy Family History Father CAD (coronary artery disease) Diabetes Mother Cancer Chronic kidney disease (CKD) Diabetes Lung disease Grandmother Dementia Stroke Family/Other Suicide Other Hypertension Denies family history of Clotting disorder Anesthesia complication Bleeding disorder Social History Smoking and tobacco/nicotine status: current every day tobacco/nicotine user cigarettes Packs smoked per day: 1 Alcohol intake: current Alcohol intake frequency: holidays/special occasions only Substance/Drug Use: never Vitals/I&O/Wt Last Vital Signs Temp 99 F 03/25/25 13:57 Pulse 90 03/25/25 13:57 Resp 16 03/25/25 13:57 BP 138/90 03/25/25 13:57 Pulse Ox 93 03/25/25 13:57 O2 Del Method Room Air 03/25/25 09:17 Weight last 48 hrs Weight 179 lb 6.4 oz Physical Exam Narrative: Examination left lower extremity: Examination left lower extremity demonstrates patient has a Betadine soaked dressing on in place this is subsequently taken down patient has pressure ulcerations around the heel with significantly blackened eschar, patient has multiple evidence of previous toe and ray amputations with only isolated big toe left. Patient does have wound over the lateral aspect of foot at previous fifth ray resection with significant blackened eschar directly over the area of the cuboid with open wound appreciated. there is no signs of rapidly progressing infection with no proximal tracking erythema no subcutaneous emphysema or bulla appreciated. Patient has some tenderness to palpation over the lateral aspect of the foot. Diminished pulses at the posterior tib and dorsalis pedis. Compartments are soft compressible subtle venous stasis/peripheral vascular disease insufficiency appreciated in the pretibial region distally at the ankle. Patient on the anterior aspect of the knee has 2 small burn wounds noted no active drainage appreciated these are currently dressed. Data 03/25/25 09:39 03/25/25 09:39 Micro: Microbiology 03/25/25 10:11 Blood Culture - Preliminary Blood SPECIMEN COLLECTED 03/25/25 10:12 Blood Culture - Preliminary Blood SPECIMEN COLLECTED Xray Ortho: Radiologist's impression: Patient: Marquis Ballard Unit #: [id number] : 1960 Age/Sex: 64 / M ADM Date: 03/25/25 Loc: ER Room/Bed: Attending: Ordering Provider/Ordering MD: Carter Bowers DO Date of Service: 03/25/25 Procedure(s): XR foot LT min 3V* [id number] Accession Number(s): [id number] Report Number: [id number] WS: [id number] Left foot, 3 views, 03/25/2025 Clinical Data: foot ulcer Comparison: Left foot, 03/24/2025 Findings: The partial amputations include the second and third toes, the distal left fourth metatarsal and the entire left fifth metatarsal and toe. There is irregularity of the tarsal bones especially the cuboid and third cuneiform. There is subcutaneous air adjacent to the base of the left fourth metatarsal and cuboid which is increased compared to yesterday. The air inferior to the cuboid has increased slightly. XR/XR foot LT min 3V* [id number] Impression: 1. Amputations of the tarsal bones remain the same. 2. Subcutaneous air adjacent to base of left fourth metatarsal and cuboid has increased. 3. No change in tarsal irregularity. A&P Assessment and plan 1. Non-pressure chronic ulcer of other part of left foot with necrosis of muscle: 2. DM2 (diabetes mellitus, type 2): 3. Diabetic neuropathy: 4. PAD (peripheral artery disease): 5. Tobacco dependency: 6. Chronic osteomyelitis of left foot: 7. Chronic ulcer of left foot due to diabetes mellitus: Plan: Internal medicine admitted patient as primary Orthopedics consulted Imaging reviewed?patient has multiple amputation of the foot with chronic wound with associated subcutaneous air in this region as well as chronic osteomyelitis changes on radiograph Cardiology on board for evaluation of peripheral vascular disease ABIs pending per primary Labs reviewed WBC 14.84, hemoglobin 10.6, ESR 33, hemoglobin A1c 11.0, CRP 91.8 Discussed treatment options as far as nonoperative operative invention Podiatry has seen evaluated patient recommending below the knee amputation Patient currently has Betadine soaked gauze dressing from wound care Continue with daily wound care Discussed treatment options the patient elects proceed with left below the knee amputation tomorrow N.p.o. at midnight Hold anticoagulants MDM: Patient 64-year-old male presents with chronic diabetic foot ulcerations has had multiple amputations at this point time still residual chronic wound with peripheral vascular disease his hemoglobin A1c is 11. He does have peripheral vascular disease known as well currently cardiology on board and evaluating for this. At this point in time podiatry has no longer any further limb salvage options from amputation of the foot and recommending below the knee amputation orthopedics now was consulted for evaluation and recommendations at this point in time I do agree likely a below the knee amputation would be his next best about an amputation site and location as this does look as though this might have the propensity of healing looking at his soft tissue envelope. Cardiology is on board and evaluating peripheral vascular disease. This point in time we had a long thoughtful discussion with the patient about his treatment options here in detail further advanced imaging continued nonoperative treatment with IV antibiotics he does understand though unfortunately given the chronicity and chronic osteomyelitis changes in his foot that unlikely would this be completely healed and may continually have wound issues this point time he would like to just be done with this from the standpoint of the chronic wounds and do a left below the knee amputation. I feel this is a very reasonable option here moving forward he understands given his vascular disease and uncontrolled diabetes with an 11 A1c he might still have even a 50% chance of wound issues in the recovery process but understanding this he would like to pursue surgical intervention for left below the knee amputation we talked about his treatment options and through shared decision making he agrees to proceed with left BKA. Risk of surge include but not limited to make a better make it worse, injury to nerves vessels or tendons, infection, wound complications and wound breakdown, further amputation surgery. Understanding risk of surgery patient like to proceed with surgical intervention all questions answered at this time. Will get him out on surgery schedule tomorrow. PDMP PDMP Reviewed: Not Reviewed Coding Level of Care Code Acute Code for Chg Fwd Diagnoses Non-pressure chronic ulcer of other part of left foot with necrosis of muscle L97.523 DM2 (diabetes mellitus, type 2) E11.9 Diabetic neuropathy E11.40 PAD (peripheral artery disease) I73.9 Tobacco dependency F17.200 Chronic osteomyelitis of left foot M86.672 Chronic ulcer of left foot due to diabetes mellitus E11.621; L97.529
--- NOTE | 2025-03-25 15:02 | P.CONIM_ITS ---
<Statement entered by John Toro M.D - 03/31/25 11:05> Patient was cared for in conjunction with an advanced practice practitioner.? I reviewed the chart and all pertinent data including imaging, telemetry, and laboratory results.? I discussed the patient in detail with the advanced practice practitioner.? Please see? their documentation for consult note, testing results and agreed upon plan of care for the patient. Providers/Reason For Consult 2 Consulting Physician/Specialty*: Drr. Toro Reason for Consult*: PAD Requesting Physician: Randee Zhang Attending Physician: Jonathan Mcdonnell Primary Care Provider: Juany Guajardo DO History of Present Illness History of Present Illness Marquis Ballard is a 64 year old male with chronic osteomyelitis of the left foot, hypertension, tobacco dependency, uncontrolled type 2 diabetes, essential hypertension who came into the ER for extensive ulcer to his left foot. It is now a heel pressure ulcer. He had increased pain and was advised to come to the emergency room. Denies any fever chills or bodyaches at this time. Previous amputation sites are seen on the left lower extremity. White cell count is elevated at 14. Creatinine is 1.6. A1c elevated 11. We were consulted for blood flow optimization prior to BKA. Review of Systems 2 Narrative: Reports left lower extremity pain. Denies signs or symptoms of stroke. Denies shortness of breath or chest pain. Reports no wounds on the right lower extremity or pain. Medications/Allergies Home Medications ?Medication ?Instructions ?Recorded ?Confirmed ?Last Taken ?Type acetaminophen 500 mg tablet 500 mg PO TID PRN Pain #0 tabs 10/27/19 03/25/25 10/11/24 Rx (Tylenol Extra Strength) ascorbic acid (vitamin C) 1,000 mg 1 g PO QAM 12/13/20 03/25/25 02/04/25 History tablet (Vitamin C) aspirin 81 mg tablet,delayed 81 mg PO DAILY 06/14/2105/26/24 03/24/25 History release articulating AFO with accommodated #1 ea 12/04/2103/0710/11/24 Rx orthotic and toe filler to left cam boot #1 ea 04/29/22 03/25/2510/29 Rx 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,obstetric anaesthetist,cont #1 ea 10/02/22 03/25/25 Rx (Dexcom G7 Director Of Counterintelligence) pen needle, diabetic 32 gauge x ##100 10/16/22 5 10/11/24 Rx / (TechLITE Pen Needle) atorvastatin 80 mg tablet 80 mg PO BEDTIME #90 tabs 03/25/25 02/04/25 Rx blood sugar diagnostic (OneTouch #300 ea 03/10/2403/0710/11/24 Rx Ultra Test strips) lancets (Accu-Chek Softclix #100 ea 03/10/24 03/25/25 10/11/24 Rx Lancets) diabetic shoes #1 ea 07/13/24 03/25/25 0710/29 Rx insulin pump cart,auto,BT,G6/7 #15 ea 09/17/24 5 10/11/24 Rx (Omnipod 5 G6-G7 Pods (Gen 5) subcutaneous cartridge) insulin pump cartridge,auto #1 ea 09/17/24 03/25/25 Rx dose,BT,G6/G7 with controller subcutaneous (Omnipod 5 G6-G7 Intro Kit(Gen 5) subcutaneous cartridge and controller) clopidogrel 75 mg tablet 75 mg PO DAILY 10/25/2403/0702/04/25 History gabapentin 100 mg capsule 100 mg PO TID 10/25/2403/2502/04/25 History insulin lispro 100 unit/mL 15 unit SUBCUT TID PRN bloo d sugar 10/25/24 03/25/25 Unknown History subcutaneous pen (Humalog KwikPen (U-100) Insulin) metoprolol tartrate 25 mg tablet 25 mg PO BID #180 tab s 10/26/24 03/25/25 02/04/25 Rx duloxetine 30 mg capsule,delayed 30 mg PO BID #60 caps 12/28/24 03/25/25 02/04/25 Rx release 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 sensor (Dexcom G7 #9 ea 01/14/25 5 Unknown Rx Sensor device) gauze bandage 2 1/4 X 3 yard #96 ea 02/05/25 03/25/25 Unknown Rx (Kerlix) insulin glargine-yfgn 100 unit/mL 55 unit SUBCUT DAILY 02/05/25 03/25/25 02/04/25 History (3 mL) subcutaneous pen (Semglee (insulin glargine-yfgn) Pen) metformin 1,000 mg tablet 1,000 mg PO BID 02/05/25 Unknown History mupirocin 2 % topical ointment 1 applic topical BID #2 2 grams 02/05/25 03/25/25 Unknown Rx (Centany) white petrolatum 1 X 8 bandage #200 ea 02/05/2503/07 Unknown Rx (Vaseline Petrolatum Gauze) clindamycin HCl 300 mg capsule 300 mg PO TID #21 caps 03/24/25 03/25/25 03/24/25 Rx (Cleocin HCl) levofloxacin 500 mg tablet 500 mg PO DAILY #10 tabs 03/25/25 03/24/25 Rx Allergies Allergy/AdvReac Type Severity Reaction Status Date / Time Sulfa (Sulfonamide Allergy Mild Unknown Verified 03/25/25 09:18 Antibiotics) NSAIDS (Non-Steroidal Allergy Unknown ALGY-Anaphy Verified 03/25/25 09:18 Anti-Inflamma (NSAIDS laxis,Unkno (Non-Steroidal wn Anti-Inflammatory Drug)) oseltamivir (From Tamiflu) Allergy ADR-Nausea Verified 03/25/25 09:18 triethanolamine (From Allergy ALGY-Rash Verified 03/25/25 09:18 Cerumenex) PFSH Acute 2 PFSH: Medical History (Updated 03/25/25 @ 15:56 by Kike Morgan DPM) Psychiatric care Uncontrolled type 2 diabetes mellitus, with long-term current use of insulin Tobacco dependency HTN (hypertension), benign Major depressive disorder Low back pain radiating down leg Essential hypertension Hypotestosteronemia in male Dyslipidemia Surgical History (Updated 03/25/25 @ 15:56 by Kike Morgan DPM) History of amputation of lesser toe of both feet H/O total hip arthroplasty [place] Accolade II total hip system: The size 58 mm solid back acetabular shell with an F alpha code and an MDM liner size 46 mm inner diameter by F alpha code. An Accolade II size 6 x 127 degree neck angle hip stem, femoral head size 28 mm outer diameter and +0 mm offset inside of an MDM insert size inner diameter 28 mm to match the 46F History of total left hip arthroplasty Hx of cataract extraction History of incision and drainage left foot History of amputation of toe Right second and left second and third History of eye surgery Status post vasectomy Family History Father CAD (coronary artery disease) Diabetes Mother Cancer Chronic kidney disease (CKD) Diabetes Lung disease Grandmother Dementia Stroke Family/Other Suicide Other Hypertension Denies family history of Clotting disorder Anesthesia complication Bleeding disorder Social History Smoking and tobacco/nicotine status: current every day tobacco/nicotine user cigarettes Packs smoked per day: 1 Alcohol intake: current Alcohol intake frequency: holidays/special occasions only Substance/Drug Use: never Vitals/I&O/Wt Last Vital Signs Temp 99 F 03/25/25 13:57 Pulse 90 03/25/25 13:57 Resp 16 03/25/25 13:57 BP 138/90 03/25/25 13:57 Pulse Ox 93 03/25/25 13:57 O2 Del Method Room Air 03/25/25 09:17 03/25/25 03/25/25 03/25/25 06:59 14:59 22:59 Intake Total 250 / 250 Balance 250 / 250 Weight last 48 hrs Weight 179 lb 6.4 oz Physical Exam 2 Narrative: General: No apparent distress, healthy appearing, well nourished Neck: No carotid bruit bilaterally Respiratory: Normal respiratory effort, clear to auscultation bilaterally throughout all lung issa, no use of accessory muscles Cardio: No JVD, regular rate, regular rhythm, S1 S2 normal, no murmurs, peripheral pulses 2+ throughout Extremities: Full ROM, normal, normal capillary refill, no cyanosis or edema, 2+ monophasic popliteal artery LLE, knee is warm with 2 second capillary refill Neuro: Alert and oriented x4 Psych: Affect normal Skin: LLE heal pressure ulcer unstagable, lateral aspect of the foot with eschar, burn wound present on anterior aspect of the knee, odor coming from the wound Data 03/25/25 09:39 03/25/25 09:39 Micro: Microbiology 03/25/25 10:11 Blood Culture - Preliminary Blood SPECIMEN COLLECTED 03/25/25 10:12 Blood Culture - Preliminary Blood SPECIMEN COLLECTED A&P Assessment and plan 1. PAD (peripheral artery disease): 2. Tobacco dependency: 3. Chronic osteomyelitis of left foot: Plan: US lower extremity showed no occlusion or significant stenosis in the proximal left common femoral, SFA, or popliteal, no flow in the calf/foot arteries however there is an area at the distal popliteal that looks severe which would possibly impact amputation site healing. We will plan for angiogram LLE tomorrow morning with possible STONE POLISHER HAND and stenting of the left extremity to optimize wound healing to the area. Patient fully agrees. Thank you, Randee, for allowing us to care for this very pleasant 64 year old gentleman. PDMP PDMP Reviewed: Not Reviewed Consult Attestations 2 Medical Necessity Statement: Deferred to primary. Coding Level of Care Code Acute Code for Chg Fwd Diagnoses PAD (peripheral artery disease) I73.9 Tobacco dependency F17.200 Chronic osteomyelitis of left foot M86.672
[2025-03-25 15:03] VITALS: BMI 27.0
[2025-03-25] MEDS: meropenem 1,000 mg SDV 1000 MG IVP ×2 (15:15→20:58)
--- NOTE | 2025-03-25 15:22 | PHA.VACGOAL ---
Vancomycin Goal - Goal Vancomycin Goal:: 15-20 mg/L Vancomycin Indication:: Osteo - Therapy Day of therpy:: Day []of [] . Actual body weight (kg): 179 lb 6.4 oz - Data Labs: WBC 14.84 10^3/uL (3.29-11.43) H 03/25/25 09:39 RBC 3.73 10^6/uL (3.85-5.65) L 03/25/25 09:39 Hgb 10.60 g/dL (11.27-16.99) L 03/25/25 09:39 Hct 32.1 % (37-53) L 03/25/25 09:39 MCV 86.1 fl (82-101) 03/25/25 09:39 MCH 28.4 pg (27-33) 03/25/25 09:39 MCHC 33.0 g/dL (30-55) 03/25/25 09:39 RDW 12.0 % (12.1-15.1) L 03/25/25 09:39 Sodium 131 mmol/L (136-145) L 03/25/25 09:39 Potassium 4.8 mmol/L (3.5-5.1) 03/25/25 09:39 Chloride 94 mmol/L (98-107) L 03/25/25 09:39 Carbon Dioxide 25 mmol/L (22-29) 03/25/25 09:39 Anion Gap 16.8 (5-19) 03/25/25 09:39 BUN 20 mg/dL (8-23) 03/25/25 09:39 Creatinine 1.6 mg/dL (0.7-1.2) H 03/25/25 09:39 GFR Calculation 43.6 mL/min (90-130) L 03/25/25 09:39 Last dialysis session:: N/A Treatment plan:: new consult Regimen:: INITIAL LOADING DOSE OF 1000 MG X 1. MAINTENANCE DOSE OF 500 MG Q12H PER DOSING PROTOCOL Follow up:: WILL CONTINUE TO MONITOR AND FOLLOW UP DAILY
[2025-03-25 15:25] VITALS: PULSE 69; RESP 16; O2SAT 94
[2025-03-25 16:21] VITALS: BP 191/87; PULSE 84; RESP 17; TEMP 36.8; O2SAT 98
[2025-03-25 20:00] VITALS: BP 155/75; PULSE 81; RESP 17; TEMP 36.7; O2SAT 97
--- NOTE | 2025-03-25 21:57 | PC.NURSE ---
Patient arrived from [place] in rm [id number]. Patient is A&Ox4 on RA with complaints of 6/10 foot pain.
[2025-03-25 23:21] VITALS: RESP 16
[2025-03-25] MEDS: morphine 4 mg/mL SDV 1 mL 2 MG IVP (23:21)
[2025-03-25] MEDS: vancomycin 500 MG in sodium chloride 0.9% (plus) 100 ML 200 MG IV (23:21)
[2025-03-26] VITALS (44 sets, daily range): BP systolic 139–185; BP diastolic 67–121; PULSE 73–91; RESP 6–23; TEMP 36.1–36.6; O2SAT 90–98
[2025-03-26 03:26] LABS: Hematocrit 30.8 % (37-53); Hemoglobin 10.30 g/dL (11.27-16.99); Mean Corpuscular HGB Conc 33.4 g/dL (30-55); Mean Corpuscular Hemoglobin 28.5 pg (27-33); Mean Corpuscular Volume 85.1 fl (82-101); Nucleated Red Blood Cells % 0 %; Platelet Count 397 10^3/cmm (157-399); Red Blood Count 3.62 10^6/uL (3.85-5.65); White Blood Count 14.90 10^3/uL (3.29-11.43)
[2025-03-26 03:47] LABS: Alanine Aminotransferase < 5 U/L (0-41); Albumin Level 2.5 g/dL (3.5-5.2); Alkaline Phosphatase 111 U/L (40-130); Anion Gap 11.5 (5-19); Aspartate Amino Transferase 7 U/L (0-40); Blood Urea Nitrogen 16 mg/dL (8-23); Calcium 8.4 mg/dL (8.5-10.5); Carbon Dioxide 28 mmol/L (22-29); Chloride 99 mmol/L (98-107); Creatinine Clr Calc Pharmacy 71.6125; Globulin 4.1 g/dL (1.3-4.6); Glucose 134 mg/dL (65-115); Magnesium 1.6 mg/dL (1.7-2.3); Osmolality Calculated 281 mOsm/kg (285-295); Potassium 4.5 mmol/L (3.5-5.1); Sodium 134 mmol/L (136-145); Total Protein 6.6 g/dL (6.6-8.7)
[2025-03-26] MEDS: meropenem 1,000 mg SDV 1000 MG IVP ×3 (04:37→20:44)
--- NOTE | 2025-03-26 06:51 | XACV_ITS ---
Ht: 175 cm Wt: 79 kg BSA: 1.98 m2 Any Known Allergies: Sulfa Gender: Male : 1960 Exam Type: Invasive Peripheral Vascular Procedure(s): Procedure Description: Peripheral Cath Diagnostic Procedure Procedure Description: Abdominal aortic angiography Procedure Description: Lower extremities' angiography Procedure Description: Peripheral vascular Intervention Procedure Description: PV Balloon Procedure Description: PV Stent Exam Priority: Routine Abdominal Diagnostic Findings Distal abdominal aorta is patient. Lower Extremity Diagnostic Findings INDICATION: Osteomyelitis/ Severe peripheral artery disease/ Plan for amputation and revascularization for help with healing of stump. Left lower extremity findings: Left common iliac artery is patent. Left external iliac artery is patent. Left internal iliac artery is patent. Left common femoral artery is patent. Left profunda artery is patent. Left SFA has total occlusion in the distal segment. Recanalization of distal popliteal artery via collaterals. Collaterals are weak. Below the knee has severe peripheral artery disease with patent anterior tibial artery. Other vessels are occluded.. Left Distal Superficial Femoral Artery: 70% stenosis. Left Mid-longitudinal Popliteal Artery: 70% stenosis. Lower Extremity Interventional Findings Left Distal Superficial Femoral Artery: 100% stenosis treated with Lutonix DCB 5.0 X 100 mm and Supera Stent 5.5 X 100mm. After diagnostic images were obtained, we crossed totally occluded distal SFA with Glidewire and seeker support catheter. We predilated the stenosis with loop tonics 5.0 x 100 mm drug-coated balloon. This was followed by placement of Supera stent 5.5 x 100 mm. Conclusions Total occlusion of left SFA status post successful revascularization with balloon angioplasty and 1 stent placement. Left Distal Superficial Femoral Artery was treated with Balloon and Stent. Recommendations Dual antiplatelet therapy with aspirin and plavix. Outpatient cardiology follow up in 2 weeks. Hemodynamic Data Phase:Rest AO : 159.0 / 68.0 ( 103.0 ) @ 7:52:00 AM Access Site Site: Right Femoral artery Sheath Size: 6 Fr Hemost... Method: Suture Hemost... Success: Successful Procedure Details Findings Procedure Consent Obtained. Admit Source: In Patient. Pre-Procedure Time Out. Identified patient by full name and date of as verbalized by the patient/guarantor. Does the consent match the physician's order: Yes. Accurate & Complete Informed Consent: Yes. Inpatient/Outpatient History & Physical on Chart: Yes. If H&P is completed, is and addenduem needed: No; If yes, is the addendum complete: N/A. Visualize and Verify Site with Patient/Guarantor: N/A. Relevant Radiology Images available: Yes. The risks, benefits, and alternatives of sedation and/or procedure were discussed by physician. The patient agrees to continue. Procedure started. Correct patient, site and procedure confirmed by cath team. Current diagnosis: Chronic foot ulcers, PAD. PERRLA. Strong, equal hand administrative staff supervisor bilaterally. Lungs clear x 5 lobes. IV Site on Arrival: 20 gauge in the left wrist. IV Fluids: 0.9% NaCl at KVO. 500 mL infused prior to pathology laboratory aide. Pre Procedural Pulses: bilateral posterior tibial was Doppled. Pre Procedural Pulses: bilateral dorsalis pedis was Doppled. Oxygen started at 2liters/min via nasal canula. bilateral groins was prepped with chloroprep then draped in the usual sterile fashion. Baseline sample Acquired. HR: 77 BPM. Physician notified. Physician arrived. Physician scrubbed in. Immediate Pre-Procedure Time Out. Correct Patient: Yes; Correct Procedure: Yes; Correct Site: Yes; Correct Patient Position: Yes; Correct Supplies: Yes; Dried Flammable Prep: Yes; Blood Products Available: Yes;. Lidocaine 1% infiltrated to the right groin. Arterial access obtained with micropuncture set. Wire and needle out, manual pressure held to stop bleeding. A 5Fr UF catheter in over wire. Glidewire in through UF catheter. Glidewire advanced to left distal SFA. 6fr short sheath exchanged for 6fr 45cm flexor sheath over the glidewire. Seeker catheter in over the glidewire to distal SFA. Glidewire out. Hand injection through the seeker to better visualize distal vessels. Glidewire in through seeker. Seeker advanced to popliteal. Glidewire out. Hand injection through seeker catheter. Glidewire in through seeker. Seeker catheter out otw. Side port of sheath attached to Normal Saline flush at KVO to maintain patency. Inflation number : 1 A Lutonix DCB 5.0 X 100 mm was prepped and advanced across the Distal Superficial Femoral, Left , then inflated to 6 RUMA for 1:32 seconds. Inflation number: 2 The Lutonix DCB 5.0 X 100 mm was reinflated across the Distal Superficial Femoral, Left, to 6 RUMA for 1:02 seconds. Balloon out over wire. Balloon inserted over the wire to the distal superficial femoral. Results checked. Balloon inserted over the wire to the superficial femoral. Inflation number: 3 The Lutonix DCB 5.0 X 100 mm was reinflated across the Distal Superficial Femoral, Left, to 6 RUMA for 1:05 seconds. Balloon out over wire. Post intervention angiography performed to check result. Seeker catheter in over the glidewire. Glidewire out. 300cm Runthrough wire in through seeker catheter. Seeker catheter out. Stent inserted over the wire to the distal superficial femoral. Inflation Number : 4 A Supera Stent 5.5 X 100cm -Lot Number# [id number] [id number] 11-04-2025 was prepped and advanced across the Distal Superficial Femoral, Left. The stent was deployed at 0 RUMA for 1:34 seconds. Post intervention angiography performed to check result. Runthrough wire out. 6fr 45cm flexor sheath exchanged for new 6fr 11cm sheath over the standard wire. Abdominal aortogram performed in AP @ 10 mL/sec for a total of 30 mL. ACT drawn. Results 213 seconds. Therapeutic limits - pre-heparin administration 90-150 seconds and monitoring heparin during a vascular procedure >250 seconds. A Right femoral angiogram was performed to determine safe placement of closure device. Physician scrubbed out. A Suture was successful obtaining hemostatsis at the Right Femoral artery insertion site. Sheath(s) sutured into position with 2-0 silk and sterile 4x4's and Op-site applied over the site. No oozing or signs and symptoms of hematoma noted. Arterial sheath flushed and connected to tranducer and pressure bag with heparinized saline. Post Procedure: Pulses reassessed and unchanged. PERRLA. Strong, equal hand administrative staff supervisor bilaterally. No VTE prophylaxis required. Medication's Wasted: Lidocaine 1% = 10 mL. Medication's Wasted: Heparin = mL. Medication's Wasted: Other = Versed 1, Fentanyl 25mcg. Total IV fluids: 100 mL. Post-op diagnosis: Totally occluded distal left SFA. Post Angioplasty with DCB and Supera Stent placement. Complications: None. Estimated blood loss: 5mL-10mL. Responsiveness - Normal response to verbal stimuli; alert and oriented, PERRLA. Airway - Unaffected, no intervention required; spontaneous ventilation. Circulation: W/N/L, pulses unchanged. Nausea/Vomiting: No. Procedure completed. Patient transferred by bed to 1st floor. Vital chart was stopped. Procedure Medications Start: 7:40 AM Stop: 7:40 AM Medication: Versed Amount: 1 mg Route: I.V. Start: 7:40 AM Stop: 7:40 AM Medication: Fentanyl Amount: 50 mcg Route: I.V. Start: 7:51 AM Stop: 7:51 AM Medication: Heparin Amount: 5000 units Route: I.V. Start: 8:24 AM Stop: 8:24 AM Medication: Fentanyl Amount: 25 mcg Route: I.V. Start: 8:30 AM Stop: 8:30 AM Medication: Heparin Amount: 2000 units Route: I.V. Start: 8:15 AM Stop: 8:15 AM Medication: Heparin Amount: 1000 units Route: I.V. I, the attending physician, have reviewed and verified all procedure medications. Yes, all medications given per verbal order History/Risk Factors Hypertension: Yes Dyslipidemia: Yes Peripheral Arterial Disease (PAD): Yes Obesity: No Renal Disease: No Tobacco Use: Current/Recent(w/in 1 year) Prior Interventions PCI: No CABG: No Valve Surgery: No Report Signatures Finalized by John Toro MD on 04/12/2025 09:51 AM
--- NOTE | 2025-03-26 07:38 | W.PM.OPSUD ---
Surgery/Procedure H&P Update DATE OF PROCEDURE: March 26, 2025 DATE H&P PERFORMED: 03/25/25 H&P UPDATE INFORMATION: I have reviewed H&P completed within last 30 days, I have examined patient prior to procedure and No changes to prior documentation PREOP DIAGNOSIS: Osteomyelitis/ Severe peripheral artery disease/ Plan for amputation PRIMARY INDICATION FOR PROCEDURE: Osteomyelitis/ Severe peripheral artery disease/ Plan for amputation PLANNED PROCEDURE: Peripheral angiogram with possible intervention PATIENT REASSESSED PRIOR TO SEDATION, WITH NO CHANGE NOTED: Yes PHYSICAL EXAM: alert, oriented x 3, clear to auscultation bilaterally and regular rate & rhythm AIRWAY EVAL/ANESTHESIA PLAN: normal airway, ASA III, Local Anesthesia, Risks, benefits & alternatives of sedation and/or procedure discussed and Patient agrees to continue as planned ADDITIONAL INFORMATION: Moderate sedation
--- NOTE | 2025-03-26 08:10 | P.PN_ITS ---
Subjective 2 Subjective: Patient resting supine, on room air. No family noted at bedside during my evaluation. Patient status post angiogram with stent placement to left SFA-with Dr. Franco this a.m. Patient denies pain currently, chest pain, palpitations, shortness of breath. Discussions of plan of care included scheduled left BKA tomorrow morning with Dr. Suarez. All questions and concerns addressed at bedside. Labs and vital signs were reviewed. Magnesium supplemented with 2gm IV. Medications: Reviewed: Yes Vitals/I&O/Wt Last Vital Signs Temp 98 F 03/26/25 04:00 Pulse 89 03/26/25 04:00 Resp 18 03/26/25 04:00 BP 146/80 03/26/25 04:00 Pulse Ox 92 03/26/25 04:00 O2 Del Method Room Air 03/26/25 04:00 03/25/25 03/26/25 03/26/25 22:59 06:59 14:59 Intake Total 730 / 730 1100 / 1830 Output Total 675 / 675 425 / 1100 Balance 55 / 55 675 / 730 Weight last 48 hrs Weight 79.605 kg Weight 83.007 kg Weight 81.374 kg Physical Exam 2 Narrative: General: A&Ox4, Resting in bed on RA, no apparent distress. Cardio: NSR, normal S1-S2 w/o any murmurs, rubs, or gallops and JVD normal Respiratory: Clear to bilateral upper and lower lobes on auscultation GI: Abd soft, non-tender, non-distended, normo-active bowel sounds present Neuro: Moves all extremities, no sensory deficits, Normal speech Behavior: Appropriate and cooperative Extremities: Left lateral aspect of the foot with with eschar and heel with unstageable ulcer and eschar and surrounding tissue with erythema and 1+ edema. Please refer to pictures in chart. Dressing in place to right groin dry and intact, no hematoma- s/p right femoral angiogram this am. Present sheath and connected to pressure bag. Data 03/26/25 02:23 03/26/25 02:23 Micro: Microbiology 03/25/25 10:11 Blood Culture - Preliminary Blood SPECIMEN COLLECTED 03/25/25 10:12 Blood Culture - Preliminary Blood SPECIMEN COLLECTED A&P Assessment and plan 1. 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 With recommendations to schedule a CT. - 03/25: Left Foot XR: Amputations of the tarsal bones remain the same. S ubcutaneous air adjacent to base of left fourth metatarsal and cuboid has increased. No change in tarsal irregularity - Blood cultures obtained, pending. - Wound culture and Gram Stain ordered, pending. Anaerobic culture obtained, pending. - Podiatry consulted- Dr. Morgan, recommendations and expertise appreciated. Recommendations Left BKA. Spoke with general surgery, orthopedics consulted. - Orthopedics consulted- Dr. Suarez, recommendations and expertise appreciated. Left BKA scheduled for 03/26/2025 -Cardiology consulted due to significant PAD. Duplex scan to left lower extremity artery ordered. - 03/25: Duplex scan left lower extremity artery: Occlusion of the arteries in the calf. Generally decreased flow through the left lower extremity. - Cardiology called back yesterday evening and decided to take patient to angiogram this morning 03/26. Distal SFA of the left leg totally occluded, revascularization with DCB and 1 stent placement on 03/[address] Toro. - Patient cleared for surgery per cardiology on 03/26. Surgery with Dr. Suarez scheduled for 03/27. - Continue IV abx vancomycin IV, meropenem 1gm IV - Fall precautions - Neurovascular checks q4hr - Pain analgesics ordered, PRN - CBC, CMP, ordered, dly. 2. DM2 (diabetes mellitus, type 2): - A1c ordered, 11% - Blood glucose monitoring, ACHS - Moderate regimen sliding scale - Hypoglycemic protocol - Cardiac Carb consistent diet - Hold home medication metformin - Continue home Lantus SC 3. Diabetic neuropathy: - Continue home medication gabapentin 100mg PO TID 4. PAD (peripheral artery disease): - Recent angiogram performed on 10/12/24 which showed a total occlusion of the proximal to distal superficial femoral artery treated which was treated with 2 stents. Severe stenosis of the popliteal artery was identified and treated with balloon angioplasty. - Continue home medication ASA 81mg PO dly and Plavix 75mg PO dly, and atorvastatin 80 mg PO dly. - 10/12/24: [employer] Procedure: Totally occluded proximal to mid SFA with severe stenosis of distal SFA and popliteal artery. Status post successful revascularization with 2 stents placed in proximal to mid SFA and distal SFA and balloon angioplasty of popliteal artery.. Right Superficial Femoral Artery was treated with two Balloon, Stents. - 03/26/25: [employer] procedure: Totally occluded distal SFA with weak collateral s. Revascularization of SFA with DCB and 1 stent placement. - Continue aspirin and Plavix 5. Tobacco dependency: - Current smoker - Offered Nicotine patch during hospitalization 6. Essential hypertension: - Contnue home medication metoprolol 25mg PO dly 7. Dyslipidemia: - Continue home medication Atorvastain 80mg PO dly. - Lipid panel ordered, cholesterol 190, LDL 135, H DL 26, LDL/HDL ratio 5.19, cholesterol/HDL ratio 7.31. - Patient to follow-up with cardiology/PCP outpatient. 8. Major depressive disorder, recurrent episode, severe, with psychosis: - Continue home medication duloxetine 30mg PO dly 9. Low back pain radiating down leg: - Continue home medication Methocarbamol 500mg PO BID 10. Noncompliance w/medication treatment due to intermit use of medication: -With much chart review patient has been noted to be persistently non-compliant with his medication since his almost two years ago. Plan: CODE STATUS: Full code GI prophylaxis: Protonix 40 mg PO dly VTE prophylaxis: SCDs, Lovenox 30mg SC x1 dose then hold for surgery PDMP PDMP Reviewed: Not Reviewed Attestations 2 Medical Necessity Statement*: Admitted under inpatient status. Given complexity of patient's presentation, scheduled L BKA, co-morbid conditions, and required intensity of treatment, a hospitalization exceeding two midnights is anticipated. Coding Level of Care Code Acute Code for Chg Fwd Diagnoses Non-pressure chronic ulcer of other part of left foot with necrosis of muscle L97.523 DM2 (diabetes mellitus, type 2) E11.9 Diabetic neuropathy E11.40 PAD (peripheral artery disease) I73.9 Tobacco dependency F17.200 Essential hypertension I10 Dyslipidemia E78.5 Major depressive disorder, recurrent episode, severe, with psychosis F33.3 Low back pain radiating down leg M54.50; M79.606 Noncompliance w/medication treatment due to intermit use of medication Z91.148
--- NOTE | 2025-03-26 08:38 | PM.PROC ---
Procedure Note: Date of procedure: 03/26/25 Pre-procedure diagnosis: Osteomyelitis/ Severe peripheral artery disease/ Plan for amputation Post-procedure diagnosis: other (Total occlusion of distal SFA. S/p revascularization with drug coated balloon and 1 stent) Procedure: Totally occluded distal SFA with weak collaterals. Below the knee has severe peripheral artery disease with patent anterior tibial artery. Other vessels are occluded. S/p successful revascularization of SFA with DCB and 1 stent placement. Continue aspirin and plavix Performing Provider: John Toro Estimated blood loss (mL): 5 Complications: None Condition: stable Disposition: floor Coding Level of Care Code Acute Code for [facility]
--- NOTE | 2025-03-26 11:03 | PC.CHAP ---
Pastoral Care Encounter/Spiritual Assessment Type of Contact [X] Declined director of estate visit [] Patient/Family/Request visit [] Outpatient visit [] Follow-up visit [] Physician referral [] Code/Alert [X] Routine visit [] Staff referral [] Actively dying [] Patient sleeping [] Family support [] [] Out of room [] Palliative care [] [] Receiving care in room [] Pre-surgical visit [] Trauma [] Long length of stay [] ICU visit [x] Other: Personal Care/bathing Relational/Emotional Strength [] Patient feels connected with others/family/visitors/staff [] Distress [] Loneliness/isolation [] Abandonment Spirituality of Patient [] Person of [place] [] Attends Restoration of their [place] [] Believes in Prayer [] Reads Bible or Congregation materials [] There are Spiritual issues to be addressed Notary Public Interventions [] Prayer [] Active listening [] Non-anxious presence [] Spiritual/emotional support [] Crisis/trauma care [] Spiritual counseling [] Bereavement support [] Provided bereavement packet [] Provided Bible/devotional materials [] Provided toy/stuffed animal, coloring book to patient or family member [] Provided Communion [] Anointing/[place] [] Salvation [] Completed spiritual assessment [] Other: Impact on Illness or Injury [] Angry [] Fearful [] Anxious [] Often cries [] Exhaustion [] Unable to work [] Unable to attend lutheran [] Unable to walk/stand [] Unable to read [] Unable to drive [] Unable to eat/drink [] Unable to sleep [] Unable to be with family [] Patient intubated [] Other: Summary Time spent with patient
--- NOTE | 2025-03-26 12:25 | PC.NURSE ---
received from cardiac warehouse laborer via bed at 1015.report received.pt is drowsy but easlily awakened.sr on monitor.denies pain at present.right femoral arterial sheath intact to pressurized system.drsg is dry and intact.no hematoma noted.right leg is warm to touch and with brisk capillary refill.dopplerable pulse noted in bilat le's.pt instructed in activity restrictions s/p femoral artery procedure...and instructed to notify staff for any bleeding,sob,pain,or if must use restroom.pt verb understanding of instruction
--- NOTE | 2025-03-26 12:38 | PC.NURSE ---
pt got out of bed on own to use bsc and urinal.assited back to bed.reiterated activity restrictions and explained potential complications.bed alarm placed on
[2025-03-26] MEDS: vancomycin 500 MG in sodium chloride 0.9% (plus) 100 ML 200 MG IV (13:15)
[2025-03-26 13:23] LABS: Partial Thromboplastin Time 31.0 SECONDS (23.9-36.7)
--- NOTE | 2025-03-26 15:03 | PC.NURSE ---
right femoral arterial sheath pulled at 1420.manual pressure held x 20 min.vss through-out procedure.right leg remained warm to touch and with brisk capillary refill.dopplerable pedal pulses noted.no hematoma noted.site dressed with 2x2 gauze and secured with biocclusive drsg.pt again instructed in activity restrictions s/p femoral artery sheath pull...and instructed to notify staff for any bleeding,sob,pain,or for any concerns at all.pt verb understanding of instructions.bed alarm placed on
[2025-03-26] MEDS: magnesium sulfate premix 2 GM/50 ML PIGGYBACK IV (15:29)
--- NOTE | 2025-03-26 20:42 | PC.NURSE ---
Dr. Suarez at bedside. Received verbal orders to hold ASA, plavix, and lovenox for tomorrow. Also was instructed to do a chlorhexidine wipe down with focus to left shearer prior to surgery. MD to discuss with patient regarding procedure.
--- NOTE | 2025-03-26 23:03 | P.PN_ITS ---
Subjective 2 Subjective: Patient seen and examined this evening he underwent revascularization with a stent placed to the SFA per cardio today to the left lower extremity. Has been on Plavix and will need to maintain being on this due to recent stents. Discussed case with cardiology and okay to utilize tourniquet on this leg for the procedure this is at the distal aspect of the lower thigh will be able to place tourniquet above this based off of where they have shown where the stent is. Once again rediscussed options with patient at this point time he is ready to proceed with a left below the knee amputation. Vitals/I&O/Wt Last Vital Signs Temp 96.9 F L 03/26/25 08:50 Pulse 80 03/26/25 15:13 Resp 10 L 03/26/25 15:13 BP 160/76 03/26/25 15:13 Pulse Ox 94 03/26/25 15:13 O2 Del Method Room Air 03/26/25 04:00 03/26/25 03/26/25 03/27/25 14:59 22:59 06:59 Intake Total 1480 / 1480 390 / 1870 Output Total 300 / 300 Balance 1480 / 1480 90 / 1570 Weight last 48 hrs Weight 175 lb 8 oz Weight 183 lb Weight 179 lb 6.4 oz Physical Exam 2 Narrative: Examination left lower extremity: Examination left lower extremity demonstrates patient patient has pressure ulcerations around the heel with significantly blackened eschar, patient has multiple evidence of previous toe and ray amputations with only isolated big toe left. Patient does have wound over the lateral aspect of foot at previous fifth ray resection with significant blackened eschar directly over the area of the cuboid with open wound appreciated. Increased periwound erythema drainage noted today. Still there is no signs of rapidly progressing infection with no proximal tracking erythema no subcutaneous emphysema or bulla appreciated. Patient has some tenderness to palpation over the lateral aspect of the foot. Diminished pulses at the posterior tib and dorsalis pedis. Compartments are soft compressible subtle venous stasis/peripheral vascular disease insufficiency appreciated in the pretibial region distally at the ankle. Patient on the anterior aspect of the knee has 2 small burn wounds noted no active drainage appreciated these are currently dressed. Data 03/26/25 02:23 03/26/25 02:23 Micro: Microbiology 03/25/25 11:25 Gram Stain - Final Other Source 03/25/25 10:12 Blood Culture - Preliminary Blood Staphylococcus epidermidis 03/25/25 10:11 Blood Culture - Preliminary Blood NEGATIVE TO DATE A&P Assessment and plan 1. Non-pressure chronic ulcer of other part of left foot with necrosis of muscle: 2. DM2 (diabetes mellitus, type 2): 3. Diabetic neuropathy: 4. PAD (peripheral artery disease): 5. Tobacco dependency: 6. Chronic osteomyelitis of left foot: 7. Chronic ulcer of left foot due to diabetes mellitus: Plan: Internal medicine admitted patient as primary Orthopedics consulted Imaging reviewed?patient has multiple amputation of the foot with chronic wound with associated subcutaneous air in this region as well as chronic osteomyelitis changes on radiograph Patient underwent revascularization today with cardiology will need to maintain Plavix hold anticoagulant a.m. day of surgery plan on utilizing tourniquet Labs reviewed Revisited and discussed treatment options as far as nonoperative operative invention Podiatry has seen evaluated patient recommending below the knee amputation Patient currently has Betadine soaked gauze dressing from wound care Continue with daily wound care Discussed treatment options the patient elects proceed with left below the knee amputation tomorrow N.p.o. at midnight Hold anticoagulant At this point in time we revisited options with the patient at this point in time he is ready to be done with his chronic wounds on his foot and chronic osteomyelitis and ready to pursue a left below the knee amputation once again verified with cardiology patient is okay to proceed with this procedure I do feel as though hearing will improve he does have some worsening periwound erythema and swelling and some drainage today this point in time we will plan on tomorrow we will utilize a tourniquet and patient does understand there could be potential for blood loss with this procedure given him being on Plavix with this recent stent but at this point time feel as though patient would benefit from continued delaying on this procedure as this does not appear to be having any signs of improvement at this point time is optimized per the cardiology team and revascularization patient understands and agrees with current plan. All questions answered. Will proceed with left below-knee amputation tomorrow. Once again asked to be would like me to call or speak with any longer family said he is okay and ready to pursue surgical intervention. PDMP PDMP Reviewed: Not Reviewed Attestations 2 Medical Necessity Statement*: Ongoing care underwent revascularization for the left lower extremity procedure today planning on left below the knee amputation tomorrow for chronic wound peripheral vascular disease and osteomyelitis to the left foot with previous amputations Coding Level of Care Code Acute Code for [facility] Fwd Diagnoses Non-pressure chronic ulcer of other part of left foot with necrosis of muscle L97.523 DM2 (diabetes mellitus, type 2) E11.9 Diabetic neuropathy E11.40 PAD (peripheral artery disease) I73.9 Tobacco dependency F17.200 Chronic osteomyelitis of left foot M86.672 Chronic ulcer of left foot due to diabetes mellitus E11.621; L97.529
[2025-03-27] VITALS (21 sets, daily range): BP systolic 129–203; BP diastolic 69–95; PULSE 80–92; RESP 16–24; TEMP 36.2–36.9; O2SAT 90–100
[2025-03-27] MEDS: vancomycin 500 MG in sodium chloride 0.9% (plus) 100 ML 200 MG IV ×3 (00:02→23:27)
--- NOTE | 2025-03-27 01:25 | ANES.PREANE2 ---
Pre-Anesthetic Assessment Height/Weight: Height 5 ft 9 in Weight 175 lb 8 oz Temp Pulse Resp BP Pulse Ox O2 Del Method 97.8 F 86 24 H 148/69 93 Room Air 03/27/25 00:00 03/27/25 00:00 03/27/25 00:00 03/27/25 00:00 03/27/25 00:00 03/27/25 00:00 Preop Diagnosis: Osteomyelitis/ Severe peripheral artery disease/ Plan for amputation Operation Date: 03/27/25 08:10 Proposed Procedures p Below Knee Amputation(Left) - Brayan Suarez, DO Was Beta Sylvie taken within 24 hours: Yes Was Clonidine taken within 24 hours: N/A Social Tobacco and No alcohol Exam alert, oriented x 3 and regular rate & rhythm Airway Submandibular: within normal limits Cervical ROM: within normal limits Mallampati: Class II Dentition: full Comments: Comments: Missing some teeth, denies any loose Anesthetic Plan ASA status: 4 Anesthesia: General Other: Patient initially admitted 03/25/2025 for osteomyelitis No prior issues with anesthesia IDDM, uncontrolled. Current BS 161 Patient had totally occluded SFA which was stented on 03/26/2025 Patient currently on aspirin and Plavix for this Labs reviewed from 03/26/2025, WBC 14.3, hemoglobin 9.6, NA 133, K+ 4.56 Type and screen performed yesterday EKG sinus rhythm Plan for general anesthesia with possible peripheral nerve block Medications/Allergies Home Medications ?Medication ?Instructions ?Recorded ?Confirmed ?Last Taken ?Type acetaminophen 500 mg tablet 500 mg PO TID PRN Pain #0 tabs 10/27/19 03/25/25 10/11/24 Rx (Tylenol Extra Strength) ascorbic acid (vitamin C) 1,000 mg 1 g PO QAM 12/13/20 03/25/25 02/04/25 History tablet (Vitamin C) aspirin 81 mg tablet,delayed 81 mg PO DAILY 06/14/21 03/25/25 03/24/25 History release articulating AFO with accommodated #1 ea 12/04/21 03/25/25 10/11/24 Rx orthotic and toe filler to left cam boot #1 ea 04/29/22 03/25/25 10/11/24 Rx 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,administrative and program specialist,cont #1 ea 10/02/22 03/25/25 10/11/24 Rx (Dexcom G7 Statistical Machine Mechanic) pen needle, diabetic 32 gauge x ##100 10/16/22 03/25/25 10/11/24 Rx 5/32 (TechLITE Pen Needle) atorvastatin 80 mg tablet 80 mg PO BEDTIME #90 tabs 03/10/24 03/25/25 02/04/25 Rx blood sugar diagnostic (OneTouch #300 ea 03/10/24 03/25/25 10/11/24 Rx Ultra Test strips) lancets (Accu-Chek Softclix #100 ea 03/10/24 03/25/25 10/11/24 Rx Lancets) diabetic shoes #1 ea 07/13/24 03/25/25 10/11/24 Rx insulin pump cart,auto,BT,G6/7 #15 ea 09/17/24 03/25/25 10/11/24 Rx (Omnipod 5 G6-G7 Pods (Gen 5) subcutaneous cartridge) insulin pump cartridge,auto #1 ea 09/17/24 03/25/25 10/11/24 Rx dose,BT,G6/G7 with controller subcutaneous (Omnipod 5 G6-G7 Intro Kit(Gen 5) subcutaneous cartridge and controller) clopidogrel 75 mg tablet 75 mg PO DAILY 10/25/24 03/25/25 02/04/25 History gabapentin 100 mg capsule 100 mg PO TID 10/25/24 03/25/25 02/04/25 History insulin lispro 100 unit/mL 15 unit SUBCUT TID PRN blood sugar 10/25/24 03/25/25 Unknown History subcutaneous pen (Humalog KwikPen (U-100) Insulin) metoprolol tartrate 25 mg tablet 25 mg PO BID #180 tabs 10/26/24 03/25/25 02/04/25 Rx duloxetine 30 mg capsule,delayed 30 mg PO BID #60 caps 12/28/24 03/25/25 02/04/25 Rx release 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 sensor (Dexcom G7 #9 ea 01/14/25 03/25/25 Unknown Rx Sensor device) gauze bandage 2 1/4 X 3 yard #96 ea 02/05/25 03/25/25 Unknown Rx (Kerlix) insulin glargine-yfgn 100 unit/mL 55 unit SUBCUT DAILY 02/05/25 03/25/25 02/04/25 History (3 mL) subcutaneous pen (Semglee (insulin glargine-yfgn) Pen) metformin 1,000 mg tablet 1,000 mg PO BID 02/05/25 03/25/25 Unknown History mupirocin 2 % topical ointment 1 applic topical BID #22 grams 02/05/25 03/25/25 Unknown Rx (Centany) white petrolatum 1 X 8 bandage #200 ea 02/05/25 03/25/25 Unknown Rx (Vaseline Petrolatum Gauze) clindamycin HCl 300 mg capsule 300 mg PO TID #21 caps 03/24/25 03/25/25 03/24/25 Rx (Cleocin HCl) levofloxacin 500 mg tablet 500 mg PO DAILY #10 tabs 03/24/25 03/25/25 03/24/25 Rx Allergies Allergy/AdvReac Type Severity Reaction Status Date / Time Sulfa (Sulfonamide Allergy Mild Unknown Verified 03/25/25 09:18 Antibiotics) NSAIDS (Non-Steroidal Allergy Unknown ALGY-Anaphy Verified 03/25/25 09:18 Anti-Inflamma (NSAIDS laxis,Unkno (Non-Steroidal wn Anti-Inflammatory Drug)) oseltamivir (From Tamiflu) Allergy ADR-Nausea Verified 03/25/25 09:18 triethanolamine (From Allergy ALGY-Rash Verified 03/25/25 09:18 Cerumenex) Current Medications Generic Name Dose Route Start Last Admin Trade Name Freq PRN Reason Stop Dose Admin Aspirin 81 mg 03/26/25 05:00 03/26/25 04:37 Aspirin 81 Mg Ec Tablet PO 81 mg DAILY BRIANA Administration Atorvastatin Calcium 80 mg 03/25/25 21:00 03/26/25 20:44 Atorvastatin 40 Mg Tablet PO 80 mg BEDTIME BRIANA Administration Clopidogrel Bisulfate 75 mg 03/26/25 05:00 03/26/25 04:37 Clopidogrel 75 Mg Tablet PO 75 mg DAILY BRIANA Administration Docusate Sodium 100 mg 03/25/25 17:00 03/26/25 17:29 Docusate Sodium 100 Mg Capsule PO Not Given BID BRIANA Duloxetine HCl 30 mg 03/25/25 17:00 03/26/25 17:29 Duloxetine 30 Mg Capsule PO 30 mg BID BRIANA Administration Enoxaparin Sodium 30 mg 03/25/25 15:45 03/26/25 15:29 Enoxaparin 30 Mg/0.3 Ml Syringe SUBCUT 30 mg Q24H BRIANA Administration Gabapentin 100 mg 03/25/25 21:00 03/26/25 20:44 Gabapentin 100 Mg Capsule PO 100 mg TID BRIANA Administration Vancomycin HCl 500 mg/ Sodium 100 mls @ 200 mls/hr 03/25/25 23:30 03/27/25 00:02 Chloride IV 200 mls/hr Q12H BRIANA Administration Sodium Chloride 1,000 mls @ 100 mls/hr 03/25/25 15:01 03/27/25 00:03 Sodium Chloride 0.9% IV 100 mls/hr .Q10H BRIANA Administration Insulin Human Lispro 0 unit 03/25/25 18:00 03/26/25 20:45 Insulin Lispro 100 Unit/1 Ml SUBCUT 6 unit WM&BEDTIME BRIANA Administration Protocol Meropenem 1,000 mg 03/25/25 13:30 03/26/25 20:44 Meropenem 1,000 Mg Sdv IVP 1,000 mg Q8H BRIANA Administration Protocol Metoprolol Tartrate 25 mg 03/25/25 17:00 03/26/25 17:29 Metoprolol Tartrate 25 Mg Tablet PO 25 mg BID BRIANA Administration Morphine Sulfate 2 mg 03/25/25 15:01 03/25/25 23:21 Morphine 4 Mg/Ml Sdv 1 Ml IVP 2 mg Q4H PRN Administration SEVERE PAIN Pantoprazole Sodium 40 mg 03/26/25 05:00 03/26/25 04:[address] 40 Mg Tablet PO 40 mg DAILY BRIANA Administration FORMERLY [facility], [facility]–1983 Anesthesia Medical History (Updated 03/25/25 @ 15:56 by Kike Morgan DPM) Psychiatric care Uncontrolled type 2 diabetes mellitus, with long-term current use of insulin Tobacco dependency HTN (hypertension), benign Major depressive disorder Low back pain radiating down leg Essential hypertension Hypotestosteronemia in male Dyslipidemia Surgical History (Updated 03/25/25 @ 15:56 by Kike Morgan DPM) History of amputation of lesser toe of both feet H/O total hip arthroplasty [place] Accolade II total hip system: The size 58 mm solid back acetabular shell with an F alpha code and an MDM liner size 46 mm inner diameter by F alpha code. An Accolade II size 6 x 127 degree neck angle hip stem, femoral head size 28 mm outer diameter and +0 mm offset inside of an MDM insert size inner diameter 28 mm to match the 46F History of total left hip arthroplasty Hx of cataract extraction History of incision and drainage left foot History of amputation of toe Right second and left second and third History of eye surgery Status post vasectomy Family History Father CAD (coronary artery disease) Diabetes Mother Cancer Chronic kidney disease (CKD) Diabetes Lung disease Grandmother Dementia Stroke Family/Other Suicide Other Hypertension Denies family history of Clotting disorder Anesthesia complication Bleeding disorder Social History Smoking and tobacco/nicotine status: current every day tobacco/nicotine user cigarettes Packs smoked per day: 1 Alcohol intake: current Alcohol intake frequency: holidays/special occasions only Substance/Drug Use: never Data Anesthesia 03/27/25 04:12 03/27/25 04:12 Short CBC 03/25/25 03/26/25 Range/Units 09:39 02:23 WBC 14.84 H 14.90 H (3.29-11.43) 10^3/uL Hgb 10.60 L 10.30 L (11.27-16.99) g/dL Hct 32.1 L 30.8 L (37-53) % MCV 86.1 85.1 (82-101) fl Plt Count 371 397 (157-399) 10^3/cmm Neut % (Auto) 76.7 71.8 % Neut # (Auto) 11.36 H 10.69 H (1.8-7.7) 10^3/uL BMP 03/25/25 03/26/25 09:39 02:23 Sodium 131 L 134 L Potassium 4.8 4.5 Chloride 94 L 99 Carbon Dioxide 25 28 BUN 20 16 Creatinine 1.6 H 1.1 Glucose 298 H 134 H Calcium 8.5 8.4 L Liver Function 03/25/25 03/26/25 Range/Units 09:39 02:23 Total Bilirubin 0.2 0.3 (0.15-1.2) mg/dL AST 11 7 (0-40) U/L ALT < 5 < 5 (0-41) U/L Alkaline Phosphatase 117 111 (40-130) U/L Albumin 2.2 L 2.5 L (3.5-5.2) g/dL Blood Bank 03/26/25 02:23 Blood Type A Positive Rho(D) Type Rh positive Antibody Screen Negative Coags 03/25/25 03/26/25 09:39 12:59 ESR 33 H APTT 31.0 C-Reactive Protein 91.8 H Microbiology 03/25/25 11:25 Gram Stain - Final Other Source 03/25/25 10:12 Blood Culture - Preliminary Blood Staphylococcus epidermidis 03/25/25 10:11 Blood Culture - Preliminary Blood NEGATIVE TO DATE
[2025-03-27 04:24] LABS: Hematocrit 29.2 % (37-53); Hemoglobin 9.60 g/dL (11.27-16.99); Mean Corpuscular HGB Conc 32.9 g/dL (30-55); Mean Corpuscular Hemoglobin 27.8 pg (27-33); Mean Corpuscular Volume 84.6 fl (82-101); Nucleated Red Blood Cells % 0 %; Platelet Count 344 10^3/cmm (157-399); Red Blood Count 3.45 10^6/uL (3.85-5.65); White Blood Count 14.37 10^3/uL (3.29-11.43)
[2025-03-27 04:48] LABS: Alanine Aminotransferase < 5 U/L (0-41); Albumin Level 2.3 g/dL (3.5-5.2); Alkaline Phosphatase 106 U/L (40-130); Anion Gap 11.6 (5-19); Aspartate Amino Transferase 7 U/L (0-40); Blood Urea Nitrogen 14 mg/dL (8-23); Calcium 8.3 mg/dL (8.5-10.5); Carbon Dioxide 26 mmol/L (22-29); Chloride 100 mmol/L (98-107); Globulin 4.1 g/dL (1.3-4.6); Glucose 135 mg/dL (65-115); Magnesium 1.9 mg/dL (1.7-2.3); Osmolality Calculated 279 mOsm/kg (285-295); Potassium 4.6 mmol/L (3.5-5.1); Sodium 133 mmol/L (136-145); Total Protein 6.4 g/dL (6.6-8.7)
[2025-03-27] MEDS: meropenem 1,000 mg SDV 1000 MG IVP ×3 (05:53→22:02)
--- NOTE | 2025-03-27 07:50 | PC.NURSE ---
Around 0600 GI cath lab came to get patient. Patient had been NPO since midnight, pre-op checklist completed, and CHG wipe down performed. Patient off unit to surgery.
--- NOTE | 2025-03-27 07:58 | W.PM.OPSUD ---
Surgery/Procedure H&P Update DATE OF PROCEDURE: March 27, 2025 DATE H&P PERFORMED: 03/25/25 H&P UPDATE INFORMATION: I have reviewed H&P completed within last 30 days, I have examined patient prior to procedure and No changes to prior documentation PREOP DIAGNOSIS: Chronic diabetic foot ulceration and osteomyelitis left foot PRIMARY INDICATION FOR PROCEDURE: Chronic diabetic foot ulceration chronic osteomyelitis left foot, severe peripheral vascular disease PLANNED PROCEDURE: Operation Date: 03/27/25 08:10 Proposed Procedures p Below Knee Amputation(Left) - Brayan Suarez DO
--- NOTE | 2025-03-27 09:57 | P.BOP_ITS ---
Date of Procedure: 03/27/2025 Surgeon: Brayan uSarez DO Research Methodologist(s): None Procedure(s) performed: Left below the knee amputation Findings of the procedure(s): Underwent procedure as planned without issues or complications Estimated blood loss: 100 mL Specimen(s) removed: Left foot and ankle amputated and sent for specimen Post-operative diagnosis: Left foot chronic osteomyelitis with diabetic foot ulcerations, peripheral vascular disease
--- NOTE | 2025-03-27 10:05 | P.OP_ITS ---
Operative Report Date of procedure: March 27, 2025 Surgeon: Brayan Suarez DO Procedure: Surgeon?Brayan Suarez DO PROFILE STITCHING MACHINE OPERATOR: None PREOP DX: Chronic diabetic foot ulceration chronic osteomyelitis left foot, s evere peripheral vascular disease POSTOP DX: Same PROCEDURES: Left below the knee amputation COMPLICATIONS: There were no complications. INDICATIONS FOR PROCEDURE: The patient is a 64-year-old male presenting with a chronic left foot wound and soft tissue infection with chronic osteomyelitis changes of multiple amputations of the foot previously chronic wound that is pr ogressively worsening with severe peripheral vascular disease currently been being in wound care. At this point in time worsening infection and at this point time patient is ready to proceed with a left below the knee amputation.. The patient has had prior studies showing evidence of peripheral vascular disease. I have outlined my approach, the course, the inherent risks, benefits, complications, and alternatives. The patient has been optimized from a medical standpoint with full understanding of the risks, benefits, complications, and alternatives, patient has elected to proceed with surgery today. Patient underwent peripheral vascular stent by cardiology yesterday and okayed to proceed with procedure today by them. PROCEDURE IN DETAIL: The patient was identified in the preoperative holding area. The operative site was clearly marked and identified, and informed consent was obtained. Patient did participate in identifying the operative site. Patient was transferred to the operating table and positioned in supine position, where adequate anesthesia was administered per the Anesthesia Department. A nonsterile tourniquet was placed high on the operative lower extremity. The operative lower extremity was then positioned, prepped and draped in the usual sterile orthopedic fashion. The distal most aspect of the lower extremity was secured in a sterile stockinette with sterile Coban. Elevation of the tourniquet was used exsanguinate the lower extremity tourniquet insufflated to 250 mmhg. We delineated our topographical anatomy, marking out our tibial resection at approximately 13 cm distal to the medial joint line. The skin flaps were elucidated with a surgical marker using a 1/3rd anterior-posterior 2/3rd flap. This was set up with having an extra 2 cm of tibia flap distal to the planned resection. The skin was then incised with a 10-blade scalpel and then Bovie electrocautery was used to dissect the subcutaneous tissue as we delineated the anterior margins of the tibia and fibula. Anterolateral soft tissue envelope was clearly evaluated. Again, the muscle demonstrated good contractility and good color. I delineated our peroneal neurovascular bundle and ligated it with 0 silk tie doubled up. Once I delineated the anterior cortices of the tibia and fibula, soft tissues were protected with soft tissue retraction and a sagittal saw was used to transect the tibia at approximately 13 cm distal to the joint line and then the fibula just proximal to that obliquely. There was no signs of infection proximally good bone quality the muscle was healthy bleeding responsive to electrocautery, there was no signs of abscess and nothing to culture. then the amputation knife was taken along the posterior cortex of the tibia and the fibula, transecting the soft tissues distally, leaving a nice long posterior flap. The specimen was then marked left foot and ankle and sent for permanent pathology and disposal. We did debulk the posterior flap just a bit, found the remainder of the neurovascular bundles. Again, we even identified the sural nerve posteriorly and the tibial nerve. These were injected with lidocaine plain and then placed under traction and transected with 15-blade scalpel prior to allowing them to retract well into the residual stump. Again, the additional bundles were ligated with Vicryl knot doubled up. We irrigated with copious amounts of normal saline and then deflated the tourniquet to verify adequate hemostasis and good capillary refill distally. Again, all of the bundles were ligated appropriately. We had excellent hemostasis. I then facilitated the primary myodesis anterior to posterior with 0 Ethibond and #1 strata fix, the skin was then closed with running 2 oh STRATAFIX and rona for the skin. A sterile dressing was applied with Xeroform, 4x4s, ABD, soft roll, and an Gal wrap. The patient was transferred to Recovery in stable condition. Disposition: Patient taken to PACU in stable condition recovering well tolerated procedure well without issues or complications will be readmitted back to the floor continue care per medicine. Will continue with antibiotics at this time. No ot her issues or complaints at this time orthopedics will continue to follow on the floor.
--- NOTE | 2025-03-27 10:51 | PC.NURSE ---
This nurse was notified immediately following heart to heart that Althea from CSU called to give report and Val from PACU called to give report several times. This nurse called and got report from KIERSTEN Oh in CSU at 1048 and while doing so, Arturo came up to med surg and rudely interrupted stating he only had one team and needed to get this pt up here. This nurse told Arturo that pt could be brought up. This nurse called KIERSTEN Neal in PACU at 1050 to get report immediately after getting off the phone with Althea from CSU.
--- NOTE | 2025-03-27 10:52 | PC.NURSE ---
pt transferred to room 264 on medsurg unit after his surgery.report phoned to floor
[2025-03-27] MEDS: chlorhexidine gluconate 0.12% Btl 473 mL 30 ML MUCOUS MEM ×3 (12:40→23:33)
[2025-03-27] MEDS: oxyCODONE 5 mg IR Tab/Cap PO ×2 (12:40→16:54)
[2025-03-27] MEDS: ceFAZolin 2,000 MG in sodium chloride 0.9% (plus) 50 ML 100 MG IV ×2 (12:47→22:04)
[2025-03-27] MEDS: morphine 4 mg/mL SDV 1 mL 2 MG IVP (15:01)
[2025-03-27 15:20] LABS: MRSA PCR OZH (swab) NOT DETECTED (Negative)
--- NOTE | 2025-03-27 16:51 | PM.PN ---
Subjective Subjective: Patient seen in the morning status post stenting to SFA to the left lower extremity and below-knee amputation for diabetic foot and chronic osteomyelitis by the Ortho Patient currently stable, did not voice any complaints, procedure went without any complication To restart his antiplatelet therapy and the nurse has been informed . Medications: Reviewed: Yes Vitals/I&O/Wt Last Vital Signs Temp 98.4 F 03/27/25 16:00 Pulse 85 03/27/25 16:00 Resp 18 03/27/25 16:00 BP 165/83 03/27/25 16:00 Pulse Ox 92 03/27/25 16:00 O2 Del Method Room Air 03/27/25 16:00 O2 Flow Rate 1 03/27/25 14:29 03/27/25 03/27/25 03/27/25 06:59 14:59 22:59 Intake Total 100 / 2970 1327.5 / 1327.5 Output Total 400 / 400 Balance 100 / 2670 927.5 / 927.5 Weight last 48 hrs Weight 82.696 kg Weight 79.605 kg Physical Exam Narrative: General: Alert and oriented, lying comfortably without any distress HEENT: Normocephalic, atraumatic, grossly unremarkable exam Cardio: normal rate rhythm, normal S1-S2 without any murmurs, rubs, or gallops and JVD normal Respiratory: normal vascular breathing on auscultation without any wheezes, stridor, rhonchi GI: Abdomen soft, nontender, nondistended, normoactive bowel sounds present all 4 quadrants, Neuro: intact cranial nerves motor and sensory and cerebellar/coordination function without any focal neurological deficit Behavior: Appropriate and cooperative Extremities: Adequate palpable pulses, mild trace edema, below-knee amputation of the left leg with adequate perfusion on examination Data 03/27/25 04:12 03/27/25 04:12 Micro: Microbiology 03/25/25 11:25 Gram Stain - Final Other Source Anaerobic Culture - Preliminary Wound Culture - Preliminary Coag positive Staphylococcus 03/25/25 10:12 Blood Culture - Preliminary Blood Staphylococcus epidermidis A&P Assessment and plan 1. Non-pressure chronic ulcer of other part of left foot with necrosis of muscle: - complex and severe PAD S/P multiple stents to the lower extremities - patient having complicated left foot chronic Osteomyelitis with air inside the tissue, and further had podiatry and ortho. - h/o multiple stents by cardio and recent one to the left SFA - cardio, ortho and podiatry onboard - patient s/p left sided BKA on 03/27/25, doing well - Continue IV abx vancomycin IV, meropenem 1gm IV at the meantime and to consult ID tomorrow for tailoring of the abx - Fall precautions - Neurovascular checks q4hr - Pain analgesics ordered, PRN - Follow blood cultures and wound cultures final report - monitor hemodynamics 2. DM2 (diabetes mellitus, type 2): - A1c ordered, 11% - Insulin sliding scale - Monitor glucose with hypoglycemia protocol 3. Diabetic polyneuropathy associated with type 2 diabetes mellitus: - Continue home medication gabapentin 100mg PO TID - Continue duloxetine 30 mg twice daily 4. PAD (peripheral artery disease): patient had history of multiple stents to both lower extremities and recent stenting to the left SFA - Continue aspirin and Plavix - Cardiology on board and follow the plan of care 5. Tobacco dependency: - Current smoker - Offered Nicotine patch during hospitalization 6. Essential hypertension: - Contnue home medication metoprolol 25mg PO twice daily 7. Dyslipidemia: - Continue high intensity statins atorvastatin 80 mg daily - Cardiology and PCP follow-up at the time of discharge 8. Major depressive disorder, recurrent episode, severe, with psychosis: - Currently stable continue to monitor 9. Low back pain radiating down leg: - Adequate analgesia as needed for pain control 10. Noncompliance w/medication treatment due to intermit use of medication: -With much chart review patient has been noted to be persistently non-compliant with his medication since his almost two years ago. - Counseling and emphasis have been been provided for medication compliance Plan: CODE STATUS: Full code GI prophylaxis: Protonix 40 mg PO dly VTE prophylaxis: SCDs, Lovenox 30mg SC x1 dose then hold for surgery PDMP PDMP Reviewed: Not Reviewed Attestations Medical Necessity Statement*: Patient will stay more than 2 midnights for management of diabetic foot and left-sided BKA requiring OT PT and further SNF placement later on Time Spent in Patient Care: Greater than 35 minutes (>than 50% of time spent in counselling and/or direct pt care on unit). Other Attestations: Patient condition has been discussed at length with the patient/family, I have independently reviewed the chart labs imaging/diagnostics/EKG. the goals of care and code status with the patient/family/NOK/legal sales solutions representative, and documented accordingly. I have reconciled the medications after confirmation/comorbidities/current clinical condition. The management has been done according to the current clinical condition with respect to patient goals of care and based on recommendations/guidelines. The patient/family has been informed about the current condition and further plan of care. Agreed with the plan of care and understood without any language barrier. Every effort was made to ensure accuracy of assistant laboratory director. Any obvious errors or omissions should be clarified with the author of the document. Coding Level of Care Code 41243 Diagnoses Non-pressure chronic ulcer of other part of left foot with necrosis of muscle L97.523 DM2 (diabetes mellitus, type 2) E11.9 Diabetic polyneuropathy associated with type 2 diabetes mellitus E11.42 Diabetes mellitus complication detail: diabetic polyneuropathy Diabetes mellitus type: type 2 PAD (peripheral artery disease) I73.9 Tobacco dependency F17.200 Essential hypertension I10 Dyslipidemia E78.5 Major depressive disorder, recurrent episode, severe, with psychosis F33.3 Low back pain radiating down leg M54.50; M79.606 Noncompliance w/medication treatment due to intermit use of medication Z91.148
[2025-03-27] MEDS: calcium carb-vit d 600mg/400unit 1 Tablet 1 EACH PO (16:54)
[2025-03-28] VITALS (8 sets, daily range): BP systolic 114–162; BP diastolic 57–78; PULSE 78–104; RESP 15–19; TEMP 36.8–36.9; O2SAT 90–98
[2025-03-28] MEDS: ceFAZolin 2,000 MG in sodium chloride 0.9% (plus) 50 ML 100 MG IV (05:10)
[2025-03-28] MEDS: meropenem 1,000 mg SDV 1000 MG IVP ×3 (05:11→22:24)
[2025-03-28] MEDS: multivitamin therapeutic Tablet 1 TAB PO (05:11)
[2025-03-28] MEDS: chlorhexidine gluconate 0.12% Btl 473 mL 30 ML MUCOUS MEM ×4 (05:12→22:33)
[2025-03-28] MEDS: calcium carb-vit d 600mg/400unit 1 Tablet 1 EACH PO ×2 (05:12→16:59)
[2025-03-28 06:14] LABS: Hematocrit 30.9 % (37-53); Hemoglobin 10.20 g/dL (11.27-16.99); Mean Corpuscular HGB Conc 33.0 g/dL (30-55); Mean Corpuscular Hemoglobin 28.3 pg (27-33); Mean Corpuscular Volume 85.8 fl (82-101); Nucleated Red Blood Cells % 0 %; Platelet Count 390 10^3/cmm (157-399); Red Blood Count 3.60 10^6/uL (3.85-5.65); White Blood Count 15.19 10^3/uL (3.29-11.43)
[2025-03-28 06:44] LABS: Alanine Aminotransferase < 5 U/L (0-41); Albumin Level 2.4 g/dL (3.5-5.2); Alkaline Phosphatase 115 U/L (40-130); Aspartate Amino Transferase 18 U/L (0-40); Blood Urea Nitrogen 17 mg/dL (8-23); Calcium 7.9 mg/dL (8.5-10.5); Carbon Dioxide 23 mmol/L (22-29); Chloride 101 mmol/L (98-107); Globulin 4.2 g/dL (1.3-4.6); Glucose 140 mg/dL (65-115); Magnesium 1.7 mg/dL (1.7-2.3); Osmolality Calculated 282 mOsm/kg (285-295); Sodium 134 mmol/L (136-145); Total Protein 6.6 g/dL (6.6-8.7)
[2025-03-28 06:50] LABS: Anion Gap 14.7 (5-19); Potassium 4.7 mmol/L (3.5-5.1)
[2025-03-28] MEDS: oxyCODONE 5 mg IR Tab/Cap PO ×2 (08:10→16:59)
--- NOTE | 2025-03-28 09:08 | PC.NURSE ---
This nurse offered fresh ice to pt this morning, however, pt refused.
[2025-03-28 09:40] LABS: C.Diff PCR (Lab) NEGATIVE (Negative)
[2025-03-28] MEDS: vancomycin 500 MG in sodium chloride 0.9% (plus) 100 ML 200 MG IV (11:53)
--- NOTE | 2025-03-28 15:09 | P.PN_ITS ---
<Statement entered by John Toro M.D - 04/03/25 11:02> Patient was cared for in conjunction with an advanced practice practitioner.? I reviewed the chart and all pertinent data including imaging, telemetry, and laboratory results.? I discussed the patient in detail with the advanced practice practitioner.? Please see? their documentation for progress note, testing results and agreed upon plan of care for the patient. Subjective 2 Subjective: Patient is doing well. Right Oliver site clean dry intact no signs of hematoma. Patient has underwent left BKA. Vitals/I&O/Wt Last Vital Signs Temp 98.2 F 03/28/25 11:05 Pulse 87 03/28/25 11:05 Resp 17 03/28/25 11:05 BP 125/64 03/28/25 11:05 Pulse Ox 98 03/28/25 11:05 O2 Del Method Room Air 03/28/25 11:05 O2 Flow Rate 1 03/27/25 14:29 03/28/25 03/28/25 03/28/25 06:59 14:59 22:59 Intake Total 150 / 2837.5 1613.333 / 1613.333 Output Total 225 / 225 Balance 150 / 2237.5 1388.333 / 1388.333 Weight last 48 hrs Weight 178 lb Weight 182 lb 5 oz Physical Exam 2 Narrative: General: No apparent distress, healthy appearing, well nourished Neck: No carotid bruit bilaterally Respiratory: Normal respiratory effort, clear to auscultation bilaterally throughout all lung issa, no use of accessory muscles Cardio: No JVD, regular rate, regular rhythm, S1 S2 normal, no murmurs, peripheral pulses 2+ throughout Extremities: Full ROM, normal, normal capillary refill, no cyanosis or edema Neuro: Alert and oriented x4 Psych: Affect normal Skin: Right FEM site clean dry intact no signs of hematoma no tenderness present Data 03/28/25 05:36 03/28/25 05:36 Micro: Microbiology 03/25/25 11:25 Gram Stain - Final Other Source Anaerobic Culture - Preliminary Wound Culture - Preliminary Coag positive Staphylococcus A&P Assessment and plan 1. PAD (peripheral artery disease): 2. Tobacco dependency: 3. Chronic osteomyelitis of left foot: Plan: Status post stent to the distal SFA. FEM site looks good. Should continue aspirin Plavix and statin. Follow-up in the clinic 1 week from discharge. PDMP PDMP Reviewed: Not Reviewed Attestations 2 Medical Necessity Statement*: deferred to primary Coding Level of Care Code Acute Code for Chg Fwd Diagnoses PAD (peripheral artery disease) I73.9 Tobacco dependency F17.200 Chronic osteomyelitis of left foot M86.672
--- NOTE | 2025-03-28 20:14 | P.PN_ITS ---
Subjective 2 Subjective: Patient seen in the morning status post stenting to SFA to the left lower extremity and below-knee amputation for diabetic foot and chronic osteomyelitis by the Ortho on 03/27/2025 Patient having mild to moderate pain but currently controlled Patient currently stable, did not voice any complaints, procedure went without any complication Overall patient is improving and feeling better Medications: Reviewed: Yes Vitals/I&O/Wt Last Vital Signs Temp 98.2 F 03/28/25 15:55 Pulse 78 03/28/25 15:55 Resp 18 03/28/25 16:59 BP 114/57 03/28/25 15:55 Pulse Ox 95 03/28/25 15:55 O2 Del Method Room Air 03/28/25 15:55 O2 Flow Rate 1 03/27/25 14:29 03/28/25 03/28/25 03/28/25 06:59 14:59 22:59 Intake Total 150 / 2837.5 1613.333 / 9973.387 3453 / 3473.333 Output Total 225 / 225 Balance 150 / 2237.5 1388.333 / 5366.897 3811 / 3248.333 Weight last 48 hrs Weight 80.739 kg Weight 82.696 kg Physical Exam 2 Narrative: General: Alert and oriented, lying comfortably without any distress HEENT: Normocephalic, atraumatic, grossly unremarkable exam Cardio: normal rate rhythm, normal S1-S2 without any murmurs, rubs, or gallops and JVD normal Respiratory: normal vascular breathing on auscultation without any wheezes, stridor, rhonchi GI: Abdomen soft, nontender, nondistended, normoactive bowel sounds present all 4 quadrants, Neuro: intact cranial nerves motor and sensory and cerebellar/coordination function without any focal neurological deficit Behavior: Appropriate and cooperative Extremities: Adequate palpable pulses, mild trace edema, below-knee amputation of the left leg with adequate perfusion on examination Data 03/28/25 05:36 03/28/25 05:36 Micro: Microbiology 03/25/25 11:25 Gram Stain - Final Other Source Anaerobic Culture - Preliminary Wound Culture - Final Staphylococcus aureus A&P Assessment and plan 1. Non-pressure chronic ulcer of other part of left foot with necrosis of muscle: - complex and severe PAD S/P multiple stents to the lower extremities - patient having complicated left foot chronic Osteomyelitis with air inside the tissue, and further had podiatry and ortho. - h/o multiple stents by cardio and recent one to the left SFA - cardio, ortho and podiatry onboard -Cardiology referral in 1 week postdischarge - patient s/p left sided BKA on 03/27/25, doing well -MRSA negative, discontinue vancomycin, meropenem 1 g twice daily renally adjusted dose -ID consulted for further tailoring of antibiotics as a source of infection has been removed and may need to discontinue antibiotics however considering patient complex history to have ID input and further discharged follow-up as well - Fall precautions - Neurovascular checks q4hr - Pain analgesics ordered, PRN - Follow blood cultures and wound cultures final report - monitor hemodynamics 2. Acute kidney injury: Patient having acute kidney injury, possible multifactorial S/p surgery. And also vancomycin was given at the time of admission Discontinue vancomycin since there is no indication to to continue when MRSA is negative Avoid nephrotoxic medications and medications adjusted according to renal dose 1 bolus of fluid Maintenance fluids at the rate of 75 mL/h to continue Follow renal parameters Intake and output monitoring Monitor and correction of electrolytes accordingly 3. DM2 (diabetes mellitus, type 2): - A1c ordered, 11% - Insulin sliding scale - Monitor glucose with hypoglycemia protocol 4. Diabetic polyneuropathy associated with type 2 diabetes mellitus: - Continue home medication gabapentin 100mg PO TID - Continue duloxetine 30 mg twice daily 5. PAD (peripheral artery disease): patient had history of multiple stents to both lower extremities and recent stenting to the left SFA - Continue aspirin and Plavix - Cardiology on board and follow the plan of care 6. Tobacco dependency: - Current smoker - Offered Nicotine patch during hospitalization 7. Essential hypertension: - Contnue home medication metoprolol 25mg PO twice daily, amlodipine 5 mg daily 8. Dyslipidemia: - Continue high intensity statins atorvastatin 80 mg daily - Cardiology and PCP follow-up at the time of discharge 9. Major depressive disorder, recurrent episode, severe, with psychosis: - Currently stable continue to monitor 10. Low back pain radiating down leg: - Adequate analgesia as needed for pain control 11. Noncompliance w/medication treatment due to intermit use of medication: -With much chart review patient has been noted to be persistently non-compliant with his medication since his almost two years ago. - Counseling and emphasis have been been provided for medication compliance Plan: CODE STATUS: Full code GI prophylaxis: Protonix 40 mg PO dly VTE prophylaxis: heparin bid subcut PDMP PDMP Reviewed: Not Reviewed Attestations 2 Medical Necessity Statement*: Patient will stay pending catalytic case operator referral for SNF as the patient will require OT PT therapy post left BKA and further balance/gait optimization Time Spent in Patient Care: 16 - 35 minutes (>than 50% of time sp ent in counselling and/or direct pt care on unit) . Other Attestations: Patient condition has been discussed at length with the patient/family, I have independently reviewed the chart labs imaging/diagnostics/EKG. the goals of care and code status with the patient/family/NOK/legal guest services representative, and documented accordingly. I have reconciled the medications after confirmation/comorbidities/current clinical condition. The management has been done according to the current clinical condition with respect to patient goals of care and based on recommendations/guidelines. The patient/family has been informed about the current condition and further plan of care. Agreed with the plan of care and understood without any language barrier. Every effort was made to ensure accuracy of retail presentation specialist. Any obvious errors or omissions should be clarified with the author of the document. Coding Level of Care Code 22947 Diagnoses Non-pressure chronic ulcer of other part of left foot with necrosis of muscle L97.523 Acute kidney injury N17.9 DM2 (diabetes mellitus, type 2) E11.9 Diabetic polyneuropathy associated with type 2 diabetes mellitus E11.42 Diabetes mellitus type: type 2 Diabetes mellitus complication detail: diabetic polyneuropathy PAD (peripheral artery disease) I73.9 Tobacco dependency F17.200 Essential hypertension I10 Dyslipidemia E78.5 Major depressive disorder, recurrent episode, severe, with psychosis F33.3 Low back pain radiating down leg M54.50; M79.606 Noncompliance w/medication treatment due to intermit use of medication Z91.148
--- NOTE | 2025-03-28 21:15 | P.PN_ITS ---
Subjective 2 Subjective: Patient seen and examined today postoperatively 1 left BKA. Recovering well. Vitals/I&O/Wt Last Vital Signs Temp 98.2 F 03/28/25 15:55 Pulse 78 03/28/25 15:55 Resp 18 03/28/25 16:59 BP 114/57 03/28/25 15:55 Pulse Ox 95 03/28/25 15:55 O2 Del Method Room Air 03/28/25 15:55 O2 Flow Rate 1 03/27/25 14:29 03/28/25 03/28/25 03/28/25 06:59 14:59 22:59 Intake Total 150 / 2837.5 1613.333 / 1729.537 9206 / 3473.333 Output Total 225 / 225 Balance 150 / 2237.5 1388.333 / 2858.155 7153 / 3248.333 Weight last 48 hrs Weight 178 lb Weight 182 lb 5 oz Physical Exam 2 Narrative: Left BKA: Dressing noted in place no evidence of saturation patient endorses sensation intact to light touch to the stump. Dressing is not taken down. Patient is able to flex and extend at the knee. Data 03/28/25 05:36 03/28/25 05:36 Micro: Microbiology 03/25/25 11:25 Gram Stain - Final Other Source Anaerobic Culture - Preliminary Wound Culture - Final Staphylococcus aureus A&P Assessment and plan 1. Non-pressure chronic ulcer of other part of left foot with necrosis of muscle: 2. DM2 (diabetes mellitus, type 2): 3. Diabetic neuropathy: 4. PAD (peripheral artery disease): 5. Tobacco dependency: 6. Chronic osteomyelitis of left foot: 7. Chronic ulcer of left foot due to diabetes mellitus: Plan: Postop day 1 left BKA Pain control Nonweightbearing left lower extremity stump Antibiotics per primary Change dressing as needed AM labs reviewed Resume anticoagulants?DVT prophylaxis per primary Cardiology on board Internal medicine on board as primary Orthopedics on board as consultation PT/OT Case management for discharge planning Orthopedics will continue to follow PDMP PDMP Reviewed: Not Reviewed Attestations 2 Medical Necessity Statement*: Ongoing care status post left below the knee amputation?per primary Coding Level of Care Code Acute Code for Chg Fwd Diagnoses Non-pressure chronic ulcer of other part of left foot with necrosis of muscle L97.523 DM2 (diabetes mellitus, type 2) E11.9 Diabetic neuropathy E11.40 PAD (peripheral artery disease) I73.9 Tobacco dependency F17.200 Chronic osteomyelitis of left foot M86.672 Chronic ulcer of left foot due to diabetes mellitus E11.621; L97.529 Time Spent (min) 10
[2025-03-28] MEDS: heparin 5,000 unit/mL INJ 1 mL 5000 UNIT SUBCUT (22:27)
[2025-03-29] VITALS (7 sets, daily range): BP systolic 130–156; BP diastolic 69–80; PULSE 89–96; RESP 16–18; TEMP 36.6–37.1; O2SAT 91–94; BMI 27.4
[2025-03-29] MEDS: calcium carb-vit d 600mg/400unit 1 Tablet 1 EACH PO ×2 (04:32→16:54)
[2025-03-29] MEDS: multivitamin therapeutic Tablet 1 TAB PO (04:33)
[2025-03-29] MEDS: chlorhexidine gluconate 0.12% Btl 473 mL 30 ML MUCOUS MEM ×3 (04:34→16:55)
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
[2025-03-29 06:11] LABS: Hematocrit 31.1 % (37-53); Hemoglobin 10.20 g/dL (11.27-16.99); Mean Corpuscular HGB Conc 32.8 g/dL (30-55); Mean Corpuscular Hemoglobin 28.3 pg (27-33); Mean Corpuscular Volume 86.4 fl (82-101); Nucleated Red Blood Cells % 0 %; Platelet Count 398 10^3/cmm (157-399); Red Blood Count 3.60 10^6/uL (3.85-5.65); White Blood Count 10.53 10^3/uL (3.29-11.43)
[2025-03-29 06:25] LABS: Alanine Aminotransferase < 5 U/L (0-41); Albumin Level 2.4 g/dL (3.5-5.2); Alkaline Phosphatase 114 U/L (40-130); Anion Gap 16.5 (5-19); Aspartate Amino Transferase 15 U/L (0-40); Blood Urea Nitrogen 20 mg/dL (8-23); Calcium 8.1 mg/dL (8.5-10.5); Carbon Dioxide 19 mmol/L (22-29); Chloride 100 mmol/L (98-107); Globulin 4.3 g/dL (1.3-4.6); Glucose 175 mg/dL (65-115); Osmolality Calculated 279 mOsm/kg (285-295); Potassium 4.5 mmol/L (3.5-5.1); Sodium 131 mmol/L (136-145); Total Protein 6.7 g/dL (6.6-8.7)
[2025-03-29] MEDS: oxyCODONE 5 mg IR Tab/Cap PO (07:42)
[2025-03-29] MEDS: heparin 5,000 unit/mL INJ 1 mL 5000 UNIT SUBCUT ×2 (07:43→21:20)
[2025-03-29 07:48] LABS: Slide Review Slide Review Perform
--- NOTE | 2025-03-29 12:06 | P.PN_ITS ---
Subjective 2 Subjective: Patient seen and examined today postoperative day 2 recovering well planning on discharge to rehab facility Vitals/I&O/Wt Last Vital Signs Temp 98.6 F 03/29/25 11:25 Pulse 89 03/29/25 11:25 Resp 17 03/29/25 11:25 BP 134/73 03/29/25 11:25 Pulse Ox 91 03/29/25 11:25 O2 Del Method Room Air 03/29/25 11:25 O2 Flow Rate 1 03/27/25 14:29 03/28/25 03/29/25 03/29/25 22:59 06:59 14:59 Intake Total 1860 / 3473.333 1460 / 1460 Output Total 150 / 375 300 / 675 Balance 1710 / 3098.333 -300 / 2798.333 1460 / 1460 Weight last 48 hrs Weight 185 lb 11.2 oz Weight 178 lb Physical Exam 2 Narrative: Left BKA: Dressing noted in place no evidence of saturation patient endorses sensation intact to light touch to the stump. Dressing is not taken down. Patient is able to flex and extend at the knee. Data 03/30/25 05:02 03/30/25 05:02 Other Labs: AM labs 03/29/2025 WBC 10.53 Hemoglobin 10.2 CRP 1.8 Micro: Microbiology 03/25/25 10:12 Blood Culture - Final Blood Staphylococcus epidermidis 03/25/25 11:25 Gram Stain - Final Other Source Anaerobic Culture - Preliminary Wound Culture - Final Staphylococcus aureus A&P Assessment and plan 1. Non-pressure chronic ulcer of other part of left foot with necrosis of muscle: 2. DM2 (diabetes mellitus, type 2): 3. Diabetic neuropathy: 4. PAD (peripheral artery disease): 5. Tobacco dependency: 6. Chronic osteomyelitis of left foot: 7. Chronic ulcer of left foot due to diabetes mellitus: Plan: Postop day 2 left BKA Pain control Nonweightbearing left lower extremity stump Antibiotics per primary/infectious disease?orthopedic recommendation at this point in time would be for at minimum oral antibiotics at discharge for 1 to 2 weeks until incision is healed Change dressing as needed AM labs reviewed Resume anticoagulants?DVT prophylaxis per primary Cardiology on board Internal medicine on board as primary Orthopedics on board as consultation PT/OT Case management for discharge planning Patient at this point in time is stable for discharge from orthopedic standpoint. Orthopedic surgery team will sign off patient at this time follow peripherally if any question pertaining patient's care for further contact orthopedics on-call orthopedic surgery team will follow up with patient in 2 weeks will receive appropriate discharge traction medication postoperatively. Antibiotics per primary/infectious disease postoperatively all questions answered. Patient understands and agrees with current plan. PDMP PDMP Reviewed: Not Reviewed Attestations 2 Medical Necessity Statement*: Ongoing care status post left below the knee amputation., Per primary Coding Level of Care Code Acute Code for Chg Fwd Diagnoses Non-pressure chronic ulcer of other part of left foot with necrosis of muscle L97.523 DM2 (diabetes mellitus, type 2) E11.9 Diabetic neuropathy E11.40 PAD (peripheral artery disease) I73.9 Tobacco dependency F17.200 Chronic osteomyelitis of left foot M86.672 Chronic ulcer of left foot due to diabetes mellitus E11.621; L97.529
[2025-03-29 15:20] LABS: SARS Covid-2 Antigen Negative (Negative)
--- NOTE | 2025-03-29 17:39 | PM.PN ---
Subjective Subjective: Patient seen in the morning and doing well, pain is better controlled Mild JOSÉ producing adequate amount of urine. Medications: Reviewed: Yes Vitals/I&O/Wt Last Vital Signs Temp 98.4 F 03/29/25 16:27 Pulse 91 03/29/25 16:27 Resp 17 03/29/25 16:27 BP 145/80 03/29/25 16:27 Pulse Ox 92 03/29/25 16:27 O2 Del Method Room Air 03/29/25 16:27 O2 Flow Rate 1 03/27/25 14:29 03/29/25 03/29/25 03/29/25 06:59 14:59 22:59 Intake Total 1820 / 1820 240 / 2060 Output Total 300 / 675 300 / 300 Balance -300 / 2798.333 1820 / 1820 -60 / 1760 Weight last 48 hrs Weight 84.232 kg Weight 80.739 kg Physical Exam Narrative: General: Alert and oriented, lying comfortably without any distress HEENT: Normocephalic, atraumatic, grossly unremarkable exam Cardio: normal rate rhythm, normal S1-S2 without any murmurs, rubs, or gallops and JVD normal Respiratory: normal vascular breathing on auscultation without any wheezes, stridor, rhonchi GI: Abdomen soft, nontender, nondistended, normoactive bowel sounds present all 4 quadrants, Neuro: intact cranial nerves motor and sensory and cerebellar/coordination function without any focal neurological deficit Behavior: Appropriate and cooperative Extremities: Adequate palpable pulses, mild trace edema, below-knee amputation of the left leg with adequate perfusion on examination, chronic skin changes on the right Lower ext of PAD Data 03/29/25 05:11 03/29/25 05:11 Micro: Microbiology 03/25/25 11:25 Gram Stain - Final Other Source Anaerobic Culture - Preliminary Wound Culture - Final Staphylococcus aureus 03/25/25 10:12 Blood Culture - Final Blood Staphylococcus epidermidis A&P Assessment and plan 1. Other chronic osteomyelitis of left foot: - complex and severe PAD S/P multiple stents to the lower extremities - patient having complicated left foot chronic Osteomyelitis with air inside the tissue, and further had podiatry and ortho. - h/o multiple stents by cardio and recent one to the left SFA - cardio, ortho and ID onboard -Cardiology referral in 1 week postdischarge - patient s/p left sided BKA on 03/27/25, doing well - ID consulted: Recommended transition to oral Augmentin 875 mg bid and doxycycline 100mg BID x 7 days - Blood cx + 04/10 for anthony epidermidis on 03/25, more likely contamination - Fall precautions - Neurovascular checks q4hr - Pain analgesics ordered, PRN - monitor hemodynamics 2. Cellulitis and abscess of foot: as mentioned above 3. PAD (peripheral artery disease): patient had history of multiple stents to both lower extremities and recent stenting to the left SFA - Continue aspirin and Plavix - Cardiology on board and 1 week post discharge follow up 4. DM2 (diabetes mellitus, type 2): - A1c ordered, 11% - Insulin sliding scale - Monitor glucose with hypoglycemia protocol 5. Acute kidney injury: Patient having acute kidney injury, possible multifactorial S/p surgery. And also vancomycin was given at the time of admission Discontinue vancomycin since there is no indication to to continue when MRSA is negative Avoid nephrotoxic medications and medications adjusted according to renal dose Maintenance fluids at the rate of 75 mL/h to continue Follow renal parameters Intake and output monitoring Monitor and correction of electrolytes accordingly if getting better then for discharge based on clinical assessment 6. Diabetic neuropathy: - Continue home medication gabapentin 100mg PO TID - Continue duloxetine 30 mg twice daily 7. Dyslipidemia: - Continue high intensity statins atorvastatin 80 mg daily - Cardiology and PCP follow-up at the time of discharge 8. Essential hypertension: - Contnue home medication metoprolol 25mg PO twice daily, amlodipine 5 mg daily 9. Major depressive disorder, recurrent episode, severe, with psychosis: - currently stable and no psychotic features, doing well 10. Noncompliance w/medication treatment due to intermit use of medication: -With much chart review patient has been noted to be persistently non-compliant with his medication since his almost two years ago. - Counseling and emphasis have been been provided for medication compliance 11. Nicotine dependence, cigarettes, with unspecified nicotine-induced disorders: - Current smoker - Offered Nicotine patch during hospitalization PDMP PDMP Reviewed: Not Reviewed Attestations Medical Necessity Statement*: Patient will stay pending resolution of JOSÉ and improvment then for discharge to SNF post left BKA and further balance/gait optimization Time Spent in Patient Care: 16 - 35 minutes (>than 50% of time spent in counselling and/or direct pt care on unit). Other Attestations: Patient condition has been discussed at length with the patient/family, I have independently reviewed the chart labs imaging/diagnostics/EKG. the goals of care and code status with the patient/family/NOK/legal treasury representative, and documented accordingly. I have reconciled the medications after confirmation/comorbidities/current clinical condition. The management has been done according to the current clinical condition with respect to patient goals of care and based on recommendations/guidelines. The patient/family has been informed about the current condition and further plan of care. Agreed with the plan of care and understood without any language barrier. Every effort was made to ensure accuracy of kiln car repairer. Any obvious errors or omissions should be clarified with the author of the document. Coding Level of Care Code 05281 Diagnoses Other chronic osteomyelitis of left foot M86.672 Osteomyelitis type: other chronic Cellulitis and abscess of foot L03.119; L02.619 PAD (peripheral artery disease) I73.9 DM2 (diabetes mellitus, type 2) E11.9 Acute kidney injury N17.9 Diabetic neuropathy E11.40 Dyslipidemia E78.5 Essential hypertension I10 Major depressive disorder, recurrent episode, severe, with psychosis F33.3 Noncompliance w/medication treatment due to intermit use of medication Z91.148 Nicotine dependence, cigarettes, with unspecified nicotine-induced disorders F17.219
[2025-03-30] VITALS: BP 118/70; PULSE 89; RESP 17; TEMP 37.1; O2SAT 96
[2025-03-30 03:53] VITALS: BP 154/79; PULSE 96; RESP 16; TEMP 36.5; O2SAT 94
[2025-03-30] MEDS: calcium carb-vit d 600mg/400unit 1 Tablet 1 EACH PO (05:48)
[2025-03-30] MEDS: multivitamin therapeutic Tablet 1 TAB PO (05:48)
[2025-03-30] MEDS: chlorhexidine gluconate 0.12% Btl 473 mL 30 ML MUCOUS MEM ×2 (05:49→10:59)
[2025-03-30 06:04] LABS: Hematocrit 28.7 % (37-53); Hemoglobin 9.70 g/dL (11.27-16.99); Mean Corpuscular HGB Conc 33.8 g/dL (30-55); Mean Corpuscular Hemoglobin 29.0 pg (27-33); Mean Corpuscular Volume 85.7 fl (82-101); Nucleated Red Blood Cells % 0 %; Platelet Count 378 10^3/cmm (157-399); Red Blood Count 3.35 10^6/uL (3.85-5.65); White Blood Count 11.19 10^3/uL (3.29-11.43)
[2025-03-30 06:28] LABS: Alanine Aminotransferase < 5 U/L (0-41); Albumin Level 2.4 g/dL (3.5-5.2); Alkaline Phosphatase 106 U/L (40-130); Anion Gap 14.1 (5-19); Aspartate Amino Transferase 15 U/L (0-40); Blood Urea Nitrogen 24 mg/dL (8-23); Calcium 8.2 mg/dL (8.5-10.5); Carbon Dioxide 21 mmol/L (22-29); Chloride 103 mmol/L (98-107); Globulin 4.2 g/dL (1.3-4.6); Glucose 131 mg/dL (65-115); Osmolality Calculated 284 mOsm/kg (285-295); Potassium 4.1 mmol/L (3.5-5.1); Sodium 134 mmol/L (136-145); Total Protein 6.6 g/dL (6.6-8.7)
[2025-03-30 06:50] LABS: Slide Review Slide Review Perform
[2025-03-30] MEDS: heparin 5,000 unit/mL INJ 1 mL 5000 UNIT SUBCUT (07:40)
[2025-03-30 08:00] VITALS: BP 153/80; PULSE 90; RESP 15; TEMP 36.8; O2SAT 94
--- NOTE | 2025-03-30 08:42 | PM.DCS ---
Discharge Providers Date of Admission: 03/25/25 12:05 Date of Discharge: March 30, 2025 Attending Provider at Admission: Jonathan Mcdonnell Attending Provider at Discharge: Suzie Hernandez MD Primary Care Provider: Juany Guajardo DO Diagnoses at Discharge Discharge Diagnosis 1. Other chronic osteomyelitis of left foot: 2. Cellulitis and abscess of foot: 3. PAD (peripheral artery disease): 4. DM2 (diabetes mellitus, type 2): 5. Acute kidney injury: 6. Diabetic polyneuropathy associated with type 2 diabetes mellitus: 7. Dyslipidemia: 8. Essential hypertension: 9. Major depressive disorder, recurrent episode, severe, with psychosis: 10. Noncompliance w/medication treatment due to intermit use of medication: 11. Nicotine dependence, cigarettes, with unspecified nicotine-induced disorders: Reason for Visit Reason for Visit: FOOT WOUND Brief History: as per the previous admitting physician note and the patient: Marquis Ballard is a 64 year old male w/ pmhx of DM2, HTN, MDD, dyslipidemia, tobacco dependency, and PAD. He presents to the ED today w/ c/o increased discomfort to left foot. An extensive ulcer to left foot noted laterally and to heel. Patient does follow-up in wound care regularly and was recently started on Augmentin and levofloxacin on 03/24, although pain continued to increase. Wound care obtained an X-ray of the Left foot and recommended obtaining a CT for further investigation. Patient reports that he began to have pain to his Left foot began on yesterday morning 03/24. He describes the pain as dull and constant and rates it a 5/10 on pain scale. He reports this morning when he woke up the pain became more severe. He denies taking any njio-ttl-ejryqjw medications to assist with the pain, reports he just rested his foot most of the day. He reports he has not been taking his insulin or checking his blood sugars x 1 month, denies taking his antihypertensive medications. He states he has trouble since his and currently lives alone. Patient to be admitted under inpatient status to hospitalist services with podiatry consult services, and orthopedic consult services for further medical management and care. While in ED a CBC, CMP, ESR, CRP, lactic acid ordered, reviewed and results as follows: WBC 14.84, Neut 11.36, [place] 1.4, RBC 3.73, Hgb 10.6, HCT 32.1, RDW 12.0, Plt 371. Na 1 31, K 4.8, Osmo 286, glucose 298. Carton Forming Machine Adjuster 1.6, BUN 20, GFR 43.6, alk phos 117. LFTs WNL. ESR 33, CRP 91.8, lactic acid 1.5. Blood cultures obtained, pending. Wound culture and Gram stain obtained, pending. While in ED the following medications were administered: Vancomycin 1000 mg IV. Hospital Course Hospital Course Patient admitted as a case of left foot osteomyelitis s/p below-knee amputation. The patient underwent surgery without any complications. Initially the patient was kept on vancomycin and meropenem. And later after ID discussion changed to Augmentin and doxycycline since the patient already had source control. During his stay because of his peripheral artery disease and history of previous multiple stents in the lower extremities. He underwent stenting of his left SFA and continued on aspirin and Plavix with cardiology recommendations. Ortho, cardiology and ID has been on board during the hospital stay. Adequate emphasis on diabetes control and smoking cessation has been provided. Patient also had mild JOSÉ which was improving status post hydration and holding his vancomycin. He was managed according to his other comorbidities as inpatient and well-controlled. OT PT was provided and later on SNF was arranged by the watch case polisher. The patient was informed about his condition and agreed with the plan of care and appreciated the team management for his condition. Medications were reconciled after confirmation and according to patient comorbidities and appropriate follow-ups and referrals were provided at the time of discharge. Patient condition has been discussed at length with the patient/family, I have independently reviewed the chart labs imaging/diagnostics/EKG. the goals of care and code status with the patient/family/NOK/legal membership sales representative, and documented accordingly. The management has been done according to the current clinical condition with respect to patient goals of care and based on recommendations/guidelines. The patient/family has been informed about the current condition and further plan of care. Agreed with the plan of care and understood without any language barrier. Every effort was made to ensure accuracy of client experience specialist. Any obvious errors or omissions should be clarified with the author of the document. Physical Exam Narrative: General: Alert and oriented, lying comfortably without any distress HEENT: Normocephalic, atraumatic, grossly unremarkable exam Cardio: normal rate rhythm, normal S1-S2 without any murmurs, rubs, or gallops and JVD normal Respiratory: normal vascular breathing on auscultation without any wheezes, stridor, rhonchi GI: Abdomen soft, nontender, nondistended, normoactive bowel sounds present all 4 quadrants, Neuro: intact cranial nerves motor and sensory and cerebellar/coordination function without any focal neurological deficit Behavior: Appropriate and cooperative Extremities: Adequate palpable pulses, mild trace edema, below-knee amputation of the left leg with adequate perfusion on examination, chronic skin changes on the right Lower ext of PAD Discharge Data Studies Completed and Pending Completed Studies During Hospitalization Category Date Time Status XR foot LT min 3V* [id number] Stat Exams 03/25/25 09:43 [place] [id number] Stat Ultrasound 03/25/25 13:38 Completed Pending at discharge Category Date Time Status OVAL OR CIRCULAR GLASS CUTTER request for service Routine Exams 03/26/25 06:51 Taken Anaerobic Culture Routine Lab 03/25/25 11:25 Results Blood Culture Stat Lab 03/25/25 10:12 Results CBC Auto Diff [Complete Blood Count w/Auto] AM LABS Lab 03/31/25 04:00 Ordered CMP [Comprehensive Metabolic Panel] AM LABS Lab 03/31/25 04:00 Ordered Wound Culture and Gram Stain Routine Lab 03/25/25 11:25 Results Pathology: Surgical [PTH] Routine Pth 03/27/25 09:03 Received Radiology Impressions Foot X-Ray 03/25/25 09:43 Impression: 1. Amputations of the tarsal bones remain the same. 2. Subcutaneous air adjacent to base of left fourth metatarsal and cuboid has increased. 3. No change in tarsal irregularity. 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 Generally decreased flow through the left lower extremity. Laboratory Results WBC 11.19 10^3/uL (3.29-11.43) 03/30/25 05:02 RBC 3.35 10^6/uL (3.85-5.65) L 03/30/25 05:02 Hgb 9.70 g/dL (11.27-16.99) L 03/30/25 05:02 Hct 28.7 % (37-53) L 03/30/25 05:02 MCV 85.7 fl (82-101) 03/30/25 05:02 MCH 29.0 pg (27-33) 03/30/25 05:02 MCHC 33.8 g/dL (30-55) 03/30/25 05:02 RDW 12.4 % (12.1-15.1) 03/30/25 05:02 Plt Count 378 10^3/cmm (157-399) 03/30/25 05:02 MPV 10.4 fL (7.4-10.4) 03/30/25 05:02 Neut % (Auto) 70.1 % 03/30/25 05:02 Lymph % (Auto) 12.3 % 03/30/25 05:02 [place] % (Auto) 14.5 % 03/30/25 05:02 Eos % (Auto) 2.2 % 03/30/25 05:02 Baso % (Auto) 0.4 % 03/30/25 05:02 Neut # (Auto) 7.83 10^3/uL (1.8-7.7) H 03/30/25 05:02 Lymph # (Auto) 1.4 10^3/uL (0.8-4.8) 03/30/25 05:02 [place] # (Auto) 1.6 10^3/uL (0.2-0.9) H 03/30/25 05:02 Eos # (Auto) 0.3 10^3/uL (0.0-0.8) 03/30/25 05:02 Baso # (Auto) 0.1 10^3/uL (0.0-0.1) 03/30/25 05:02 Nucleated RBC % (auto) 0 % 03/30/25 05:02 Nucleated RBCs # 0.0 /100WBC 03/30/25 05:02 ESR 33 mm/hr (0-10) H 03/25/25 09:39 APTT 31.0 SECONDS (23.9-36.7) 03/26/25 12:59 Sodium 134 mmol/L (136-145) L 03/30/25 05:02 Potassium 4.1 mmol/L (3.5-5.1) 03/30/25 05:02 Chloride 103 mmol/L (98-107) 03/30/25 05:02 Carbon Dioxide 21 mmol/L (22-29) L 03/30/25 05:02 Anion Gap 14.1 (5-19) 03/30/25 05:02 BUN 24 mg/dL (8-23) H 03/30/25 05:02 Creatinine 1.6 mg/dL (0.7-1.2) H 03/30/25 05:02 GFR Calculation 43.6 mL/min (90-130) L 03/30/25 05:02 Glucose 131 mg/dL (65-115) H 03/30/25 05:02 POC Glucose 145 mg/dL (70-110) H 03/30/25 06:36 Estimat Average Glucose 269 03/25/25 09:39 Hemoglobin A1c 11.0 % (4.0-6.0) H 03/25/25 09:39 Calculated Osmolality 284 mOsm/kg (285-295) L 03/30/25 05:02 Lactic Acid 1.5 mmol/L (0.5-2.2) 03/25/25 09:39 Calcium 8.2 mg/dL (8.5-10.5) L 03/30/25 05:02 Magnesium 1.7 mg/dL (1.7-2.3) 03/28/25 05:36 Total Bilirubin 0.2 mg/dL (0.15-1.2) 03/30/25 05:02 AST 15 U/L (0-40) 03/30/25 05:02 ALT < 5 U/L (0-41) 03/30/25 05:02 Alkaline Phosphatase 106 U/L (40-130) 03/30/25 05:02 C-Reactive Protein 91.8 mg/L (0.0-4.9) H 03/25/25 09:39 Total Protein 6.6 g/dL (6.6-8.7) 03/30/25 05:02 Albumin 2.4 g/dL (3.5-5.2) L 03/30/25 05:02 Globulin 4.2 g/dL (1.3-4.6) 03/30/25 05:02 Triglycerides 146 mg/dL (0-150) 03/25/25 10:12 Cholesterol 190 mg/dL (0-200) 03/25/25 10:12 LDL Cholesterol, Calc 135 mg/dL (50-129) H 03/25/25 10:12 HDL Cholesterol 26 mg/dL (60-100) L 03/25/25 10:12 LDL/HDL Ratio 5.19 RATIO (0.00-3.22) H 03/25/25 10:12 Cholesterol/HDL Ratio 7.31 mg/dL (1.0-5.00) H 03/25/25 10:12 Nasal MRSA (PCR) Not detected (Negative) 03/27/25 14:03 Vancomycin Trough 17.1 ug/mL (10-15) H 03/28/25 22:43 C. difficile (PCR) Negative (Negative) 03/28/25 06:45 SARS-CoV-2 Ag (Rapid) Negative (Negative) 03/29/25 13:56 Blood Type A Positive 03/26/25 02:23 Rho(D) Type Rh positive 03/26/25 02:23 Antibody Screen Negative 03/26/25 02:23 Vitals Last Vital Signs Temp 98.3 F 03/30/25 08:00 Pulse 90 03/30/25 08:00 Resp 15 03/30/25 08:00 BP 153/80 03/30/25 08:00 Pulse Ox 94 03/30/25 08:00 O2 Del Method Room Air 03/30/25 08:00 O2 Flow Rate 1 03/27/25 14:29 Discharge Plan Discharge Patient Disposition: Xfer SNF Condition: Stable Prescriptions: New doxycycline monohydrate 100 mg Tablet 100 mg PO BID 7 Days Qty: 14 0RF amoxicillin-pot clavulanate 875-125 mg Tablet 1 tab PO BID 7 Days Qty: 14 0RF polysaccharide iron complex [Ferrex 150] 150 mg iron Capsule 150 mg PO BIDWM 30 Days Qty: 30 0RF amlodipine 5 mg Tablet 5 mg PO DAILY 60 Days Qty: 60 0RF tramadol 50 mg Tablet 50 mg PO Q4H PRN (Reason: Mild Pain) 7 Days Qty: 15 0RF pantoprazole 40 mg Tablet,Delayed Release (Dr/Ec) 40 mg PO DAILY 60 Days Qty: 60 0RF oxycodone 5 mg Tablet 5 - 10 mg PO Q4H PRN (Reason: Moderate To Severe Pain 1st ) 7 Days Qty: 15 0RF calcium carbonate-vitamin D3 600 mg-10 mcg (400 unit) Tablet 1 tab PO BID 60 Days Qty: 120 0RF multivitamin with folic acid [Thera] 400 mcg Tablet 1 tab PO DAILY 60 Days Qty: 60 0RF Continued ([facility]) articulating AFO with accommodated orthotic and toe filler to left See Rx Instructions .Route .MEDSUPPLY Qty: 1 0RF Rx Instructions: As directed by DAVID&O ([facility]) Dexcom G7 [facility] See Rx Instructions .Route Qty: 1 0RF Rx Instructions: As directed insulin lispro [Humalog KwikPen Insulin] 100 unit/mL insulin pen 15 unit SUBCUT TID PRN (Reason: blood sugar) ([facility]) Omnipod 5 G6-G7 Pods (Gen 5) Cartridge See Rx Instructions .Route Qty: 15 1RF Rx Instructions: As directed ([facility]) Omnipod 5 G6-G7 Intro Kt(Gen5) Cartridge See Rx Instructions .Route Qty: 1 0RF Rx Instructions: As directed atorvastatin 80 mg tablet 80 mg PO BEDTIME Qty: 90 1RF ([facility]) OneTouch Ultra Test Strip See Rx Instructions .Route Qty: 300 3RF Rx Instructions: Use with glucometer TID ([facility]) lancets [Accu-Chek Softclix Lancets] [facility] See Rx Instructions .Route Qty: 100 0RF Rx Instructions: As directed ([facility]) Dexcom G7 Sensor Device See Rx Instructions .ROUTE .MEDSUPPLY Qty: 9 3RF Rx Instructions: Change every 10days metoprolol tartrate 25 mg tablet 25 mg PO BID Qty: 180 1RF clopidogrel 75 mg tablet 75 mg PO DAILY gabapentin 100 mg capsule 100 mg PO TID Dose Instruction: take 1 capsule BY MOUTH THREE TIMES DAILY duloxetine 30 mg capsule,delayed release(DR/EC) 30 mg PO BID Qty: 60 3RF ([facility]) cam boot See Rx Instructions .Route .MEDSUPPLY Qty: 1 0RF Rx Instructions: As directed ([facility]) pen needle, diabetic [TechLITE Pen Needle] 32 gauge x 5/32 needle See Rx Instructions .ROUTE .COMPLEX Qty: 100 0RF Dose Instruction: USE DIRECTED WITH TRESIBA TWICE DAILY Rx Instructions: USE DIRECTED WITH TRESIBA TWICE DAILY ([facility]) diabetic shoes See Rx Instructions .Route .MEDSUPPLY Qty: 1 0RF Rx Instructions: As directed acetaminophen [Tylenol Extra Strength] 500 mg Tablet 500 mg PO TID PRN (Reason: Pain) Qty: 0 0RF ascorbic acid (vitamin C) [Vitamin C] 1,000 mg Tablet 1 g PO QAM aspirin 81 mg Tablet,Delayed Release (Dr/Ec) 81 mg PO DAILY insulin glargine-yfgn [Semglee(insulin glarg-yfgn)Pen] 100 unit/mL (3 mL) insulin pen 55 unit SUBCUT DAILY metformin 1,000 mg tablet 1,000 mg PO BID mupirocin [Centany] 2 % ointment 1 applic topical BID Qty: 22 0RF (DME) Vaseline Petrolatum Gauze 1 X 8 bandage See Rx Instructions .Route Qty: 200 0RF Rx Instructions: As directed (DME) Kerlix 2 1/4 X 3 -yard bandage See Rx Instructions .Route Qty: 96 0RF Rx Instructions: As directed Discontinued clindamycin HCl [Cleocin HCl] 300 mg capsule 300 mg PO TID Qty: 21 0RF levofloxacin 500 mg tablet 500 mg PO DAILY Qty: 10 0RF City Planner [place] for DC: Infectious Disease and Orthopedics Discharge Order = DC NOW: Discharge Order (Routine); Ordered 03/30/25 Ordered By: Suzie Hernandez Referrals: [facility] [Outside] John Toro M.D [Physician, Cardiology] - 04/15/25 8:00 am Referral Note: PAD s/p left SFA stenting follow up Juany Guajardo DO [Primary Care Provider, Family Practice] - 2 weeks Referral Note: Postdischarge follow-up Brayan Suarez DO [Physician, Orthopedics] - 2 weeks Referral Note: post discharge LEFT BKA followup Discharge Diet: Diabetic Discharge Activity: Limit activity as instructed Patient Instructions: Acute Wound Care (DC), Opioid Safety, Post Anesthesia Care, Patient Portal & Cassandra Instructions Discharge Attestations Time Spent in Discharge Care*: greater than 30 min Specific Discharge Activities: educating patient, educating and/or supporting family/caregiver, discussing with pcp/other providers, discussing with lining caser/social workers/dc planners, documenting/other paperwork and evaluating patient/reviewing data Status at Discharge: Cognitive status at discharge: cognitively intact, Behavioral status at discharge: cooperative, Functional status at discharge: other assisted ambulation, Overall status at discharge: patient has a new baseline Quality Metrics Clinical Quality Measures [ No reported AMI, CVA or VTE this stay] Coding Level of Care Code Acute Code for Chg Fwd Diagnoses Other chronic osteomyelitis of left foot M86.672 Osteomyelitis type: other chronic Cellulitis and abscess of foot L03.119; L02.619 PAD (peripheral artery disease) I73.9 DM2 (diabetes mellitus, type 2) E11.9 Acute kidney injury N17.9 Diabetic polyneuropathy associated with type 2 diabetes mellitus E11.42 Diabetes mellitus complication detail: diabetic polyneuropathy Diabetes mellitus type: type 2 Dyslipidemia E78.5 Essential hypertension I10 Major depressive disorder, recurrent episode, severe, with psychosis F33.3 Noncompliance w/medication treatment due to intermit use of medication Z91.148 Nicotine dependence, cigarettes, with unspecified nicotine-induced disorders F17.219
--- NOTE | 2025-03-30 09:18 | PC.SOCIAL ---
IMM Updated Updated pt on IMM. No questions voiced. Provided pt a copy. Initialed, dated, & timed copy in chart.
[2025-03-30 10:36] LABS: SARS Covid-2 Antigen Negative (Negative)
[2025-03-30 11:00] VITALS: BP 134/65; PULSE 67; RESP 16; TEMP 36.6; O2SAT 98
[2025-03-30 11:46] VITALS: BP 134/65; PULSE 67; RESP 16; TEMP 36.6; O2SAT 98
--- NOTE | 2025-03-30 11:51 | PC.NURSE ---
Patients dressing remover per physicians request, surgical site clean and dry. optifoam above site changed. patient handled this well.
--- NOTE | 2025-03-30 14:40 | PC.NURSE ---
Patient DC EMS transported patient at DC. Vitals taken IV removed belongings sent with patient report called to Qian at [facility].
[2025-03-30 14:42] VITALS: BP 134/65; PULSE 67; RESP 16; TEMP 36.6; O2SAT 98
== END 2025-03-30 14:43 | disposition skilled nursing facility (03) | DRG 240 ==
LOC: ER 10:39 → MEDSURG 14:31 → CSU 22:16 → MEDSURG 03-27 10:30
PROVIDERS: Internal Medicine; Student in an Organized Health Care Education/Training Program; Admitting Provider Internal Medicine; Emergency Provider Family Medicine; PCP Family Medicine; Visit Provider Student in an Organized Health Care Education/Training Program
PROC: 0Y6J0Z3 Detachment at Left Lower Leg, Low, Open Approach (ICD-10-PCS; CPT 27880; principal; 2025-03-27 08:00)
DX: E11.52 Type 2 diabetes mellitus with diabetic peripheral angiopathy with gangrene (principal); F33.3 Major depressive disorder, recurrent, severe with psychotic symptoms; L03.116 Cellulitis of left lower limb; M86.672 Other chronic osteomyelitis, left ankle and foot; N17.9 Acute kidney failure, unspecified; E11.621 Type 2 diabetes mellitus with foot ulcer; E11.69 Type 2 diabetes mellitus with other specified complication; L97.523 Non-pressure chronic ulcer of other part of left foot with necrosis of muscle; I10 Essential (primary) hypertension; M54.50 Low back pain, unspecified; L89.629 Pressure ulcer of left heel, unspecified stage; E11.42 Type 2 diabetes mellitus with diabetic polyneuropathy; E78.5 Hyperlipidemia, unspecified; F17.210 Nicotine dependence, cigarettes, uncomplicated; Z89.422 Acquired absence of other left toe(s); Z79.82 Long term (current) use of aspirin; Z79.02 Long term (current) use of antithrombotics/antiplatelets; Z79.4 Long term (current) use of insulin; Z79.84 Long term (current) use of oral hypoglycemic drugs; Z96.41 Presence of insulin pump (external) (internal); Z79.899 Other long term (current) drug therapy; Z88.6 Allergy status to analgesic agent; Z88.2 Allergy status to sulfonamides; Z88.8 Allergy status to other drugs, medicaments and biological substances; Z89.421 Acquired absence of other right toe(s); Z96.642 Presence of left artificial hip joint; Z91.148 Patient's other noncompliance with medication regimen for other reason
CPT/HCPCS: 11042; 36415; 36416; 37226; 73630; 75625; 75716; 80048; 80053; 80061; 80202; 82962; 83036; 83605; 83735; 85025; 85347; 85651; 85730; 86140; 86850; 86900; 87040; 87070; 87075; 87077; 87150; 87176; 87186; 87205; 87426; 87493; 88307; 88311; 93926; 96365; 96372; 97161; 97167; 97530; 97597; 97598; 99152; 99153; 99285; A6220; A6248; A6252; C1769; C1876; C1887; C1894; C2623; J0330; J0690; J1644; J1650; J1815; J2185; J2250; J2270; J2371; J2405; J2704; J3010; J3373; J3475; J3490; J7030; J7050; J7120; J9999; Q0163; Q9967

== ENCOUNTER 2025-04-01 14:36 | Inpatient (IN) | payer MEDICARE, SELFPAY ==
[2025-02-10 12:37] VITALS: BMI 27.3
[2025-04-01] VITALS (11 sets, daily range): BP systolic 158–189; BP diastolic 73–103; PULSE 80–89; RESP 14–18; TEMP 36.4–36.8; O2SAT 90–96; BMI 27.0
--- NOTE | 2025-04-01 14:42 | XRR_ITS ---
PROCEDURE INFORMATION: Exam: XR Left Tibia and Fibula Exam date and time: 04/01/2025 2:45 PM Age: 64 years old Clinical indication: Pain; Knee; Left; Warm and red; Additional info: Amputation, stump red and warm TECHNIQUE: Imaging protocol: Radiologic exam of the left tibia and fibula. Views: 2 views. COMPARISON: CT angio abd aorta runof [id number] 09/15/2024 2:10 PM FINDINGS: Bones/joints: Recent BKA amputation. SFA endovascular stent. No complication following surgery. Soft tissues: Normal. XR/XR tibia fibula LT 2V [id number] IMPRESSION: Postoperative changes.
--- OUTSIDE RECORDS SUMMARY | 2025-04-01 14:43 | XMS_ITS | Clinical Summary ---
Author Organization [facility] Address [address] [address] Care Team Providers Care Grill Chef Name Role Phone Juany Guajardo DO Primary [...] Recently Relevant to Health Maintenance Insurance Medicaid [place] ([id number]) Care Teams Grill Chef Relationship Specialty Start Date End Date Juany Guajardo DO [address] [facility] [address] [place] [address] PCP - General Family Medicine 07/23/18
--- OUTSIDE RECORDS SUMMARY | 2025-04-01 14:43 | XMS_ITS | Encounter Summary ---
Author Organization [facility] Address [address] [place] [address] Phone Care Team Providers Care Duplication Specialist Name Role Phone Juany Guajardo Primary Care Provider [phone] Encounter Details Date Type Department Care Team (Late st Contact Info) Description 10/28/2018 Orders Only [facility] [address] [place] [address] Rj Lutz NP Microalbuminuria Social [...] [facility] - 10/13/2018 9:35 AM CDT area captain lab [facility] Clinical Laboratory [address] [place], [place] [address] Rj Lutz PATHOLOGY LABORATORY AIDE LAB BLOOD ORDERABLES Final Result [facility] documented in this encounter Visit Diagnoses Diagnosis Microalbuminuria documented in this encounter Care Teams Duplication Specialist Relationship Specialty Start Date End Date Juany Guajardo DO [address] [facility] [address] [place] [address] PCP - General Family Medicine 07/23/18 documented as of this encounter
--- OUTSIDE RECORDS SUMMARY | 2025-04-01 14:43 | XMS_ITS | Encounter Summary ---
Author Organization [facility] Address [address] [place] [address] Phone Care Team Providers Care Jeeper Operator Name Role Phone Juany Guajardo DO Primary Care Provider Encounter Details Date Type Department Care Team (Late st Contact Info) Description 04/15/2019 Orders Only [facility] [address] [place] [address] Doug Russ MD Chronic kidney [...] 2 documented in this encounter Care Teams Jeeper Operator Relationship Specialty Start Date End Date Juany Guajardo DO [address] [place] [address] PCP - General Family Medicine 07/23/18 documented as of this encounter
--- OUTSIDE RECORDS SUMMARY | 2025-04-01 14:43 | XMS_ITS | Encounter Summary ---
Author Organization [facility] Address [address] [place] [address] Phone Care Team Providers Care Fish Rod Maker Name Role Phone Juany Guajardo DO Primary Care Provider Reason for Visit * Reason Comments Med Refill Encounter Details Date Type Department Care Team (Late st Contact Info) Description 12/05/2020 Refill [facility] [address] [place] [address] Doug Russ MD Social History [...] on filedocumented in this encounter Care Teams Fish Rod Maker Relationship Specialty Start Date End Date Juany Guajardo DO [address] [place] [address] PCP - General Family Medicine 07/23/18 documented as of this encounter
--- OUTSIDE RECORDS SUMMARY | 2025-04-01 14:43 | XMS_ITS | Encounter Summary ---
Author Organization [facility] Address [address] [place] [address] Phone Care Team Providers Care Internal Wholesaler Name Role Phone Juany Guajardo DO Primary Care Provider Encounter Details Date Type Department Care Team (Late st Contact Info) Description 10/27/2018 Orders Only [facility] [address] [place] [address] Doug Russ MD Chronic kidney [...] 2 documented in this encounter Care Teams Internal Wholesaler Relationship Specialty Start Date End Date Juany Guajardo DO [address] [place] [address] PCP - General Family Medicine 07/23/18 documented as of this encounter
--- OUTSIDE RECORDS SUMMARY | 2025-04-01 14:43 | XMS_ITS | Clinical Summary ---
Author Organization [facility] Address [address] [facility] [place] [address] Care Team Providers Care Anthropology Lecturer Name Role Phone Unavailable Primary Care Provider [...] [facility] ABSTRACTION Provider, Abstract 02/01/2025 Results Follow-Up [address] [address] Kassy Rodrigues RN PATHOLOGY 01/25/2025 2:00 PM CDT Procedure visit [address] [place] [address] Jose Antonio Napier MD 01/25/2025 Orders Only [address] [place] [address] Sandra Garcia LPN Elevated PSA (Primary Dx); [...] CDT) CASE REPORT Surgical Pathology Report Case: [id number] Authorizing Provider: Jose Antonio Napier MD Collected: 01/25/2025 02:43 PM Ordering Location: [facility] Received: 01/26/2025 05:23 AM Pathologist: Beatriz Contreras MD Specimens: A) - Prostate, right apex B) - Prostate, right mid C) - Prostate, right base D) - Prostate, left apex E) - Prostate, left mid F) - Prostate, left base 10:27 AM CDT [facility] FINAL DIAGNOSIS A. Prostate, right apex, core biopsy - Benign prostate tissue / B. Prostate, right mid, core biopsy Histologic Type: Acinar adenocarcinoma Histologic Grade (Amanda Pattern) Primary (Predominant) Pattern: Grade 3 Secondary (Worst Remaining) Pattern: Grade 3 Total Liberty Score: 6 Grade Group: 1 Percentage of [...] Grade Group: 1 Percentage of Pattern 4 (Liberty Score 7): N/A Cribriform Glands (Amanda score [...] biopsy Histologic Type: Acinar adenocarcinoma Histologic Grade (Liberty Pattern) Primary (Predominant) Pattern: Grade 4 Secondary (Worst Remaining) Pattern: Grade 3 Total Liberty Score: 7 Grade Group: 3 Percentage of Pattern 4 (Liberty Score 7): 80% Cribriform Glands (Amanda score [...] Grade Group: 3 Percentage of Pattern 4 (Liberty Score 7): 80% Cribriform Glands (Amanda score [...] 4 (Amanda Score 7): 80% Cribriform Glands (Liberty score 7 or 8): Not identified Intraductal Carcinoma: Not identified Tumor Quantitation: Number of positive cores/Total number of cores: 2 out of 3 Percent of biopsy tissue involved by tumor: 55% Total linear millimeters of carcinoma: 17 mm Periprostatic Fat Invasion: Not identified Seminal Vesicle Invasion: Not identified REV:CLB Beatriz Contreras MD [id number] 10:27 AM [facility] at 1027 CDT DIAGNOSIS COMMENT After review of the H&E-stained slides, a PIN 3 immunohistochemical stain cocktail was performed on block B1 and shows small areas of acinar adenocarcinoma with absent staining for basal cell markers and increased staining with AMACR. 10:27 AM [facility] GROSS DESCRIPTION A. Received in formalin labeled [facility] right apex are 3 cores of pale-fraser soft tissue, 0.9 cm in greatest dimension. The specimen is submitted entirely in A1. B. Received in formalin labeled [facility] - right mid are multiple cores of pale-fraser soft tissue, 2.0 cm in greatest dimension. The specimen is submitted entirely in B1. C. Received in formalin labeled [facility] - right base are 3 cores of pale-fraser soft tissue, 1.4 cm in greatest dimension. The specimen is submitted entirely in C1. D. Received in formalin labeled [facility] - left apex are multiple cores of pale-fraser soft tissue, 2.0 cm in greatest dimension. The specimen is submitted entirely in D1. E. Received in formalin labeled [facility] left mid are 2 cores of pale-fraser soft tissue, 1.7 cm in greatest dimension. The specimen is submitted entirely in E1. F. Received in formalin labeled [facility] base are 3 cores of pale-fraser soft tissue, 1.4 cm in greatest dimension. The specimen is submitted entirely in F1. Grossed by: Leidy Hernandez MS, PA (ASCP) 10:27 AM [facility] CLINICAL INFORMATION R97.20 - Elevated PSA [ICD-10-CM] R97.20 - Elevated prostate specific antigen (PSA) [ICD-10-CM] 5 10:27 AM [facility] COMMENT The [employer] voice-activated dictation system may have been used [...] determined by the [facility] in compliance with CLIA'88 regulations. Some of these tests rely on the use of analyte specific reagents and are subject to specific labeling requirements by the FDA. All controls show appropriate reactivity. This testing was developed by the [facility]ohist[facility] of [facility]. It has not been cleared or approved by the FDA. The FDA has determined that such clearance or approval is not necessary. 10:27 AM CDT [facility] Tissue ENTIRE PROSTATE / Unknown Collection / [...] Napier MD PATHOLOGY/CYTOLOGY ORDERABLE S Final Result [facility] CLIA # [id number] [address] [place] [id number] from Last 3 Months Insurance MEDICARE PART A AND B
--- OUTSIDE RECORDS SUMMARY | 2025-04-01 14:43 | XMS_ITS | Continuity of Care Document ---
Author Organization [facility] Address [address] [place] [address] Care Team Providers Care Delivery Motorcycle Driver Name Role Phone Dr. Isael Wilkinson DO Attending Physician Medications Medication Frequency Instructions Diagnosis Start Date End Date Status Last Administered amlodipine 5 mg tablet Once A Day 1 tab, oral, Once A Day Active 04/01/2025 07:19 AM amoxicillin-po t clavulanate 875-125 mg tablet Twice A Day 1 tab, oral, Twice A Day, for 7 days 2024 Active 04/01/2025 07:19 AM aspirin 81 mg tablet,delayed release (/EC) Once A Day 1 tab, oral, Once A Day Active 04/01/2025 07:19 AM atorvastatin 80 mg tablet At Bedtime 1 tab, oral, At Bedtime Active 03/31/2025 06:29 PM Calcium with Vitamin D (calcium carbonate-maurice min d3) 600 mg-10 mcg (400 unit) tablet Twice A Day 1 tab, oral, Twice A Day, TI for tri-carb Active 04/01/2025 07:19 AM clopidogrel 75 mg tablet Once A Day 1 tab, oral, Once A Day Active 04/01/2025 07:19 AM Daily-Alonzo (with folic acid) (multivitamin with folic acid) 400 mcg tablet Once A Day 1 tab, oral, Once A Day, TI for MVI Active 04/01/2025 07:19 AM doxycycline monohydrate 100 mg capsule Twice A Day 1 cap, oral, Twice A Day, for 7 days 2024 Active 03/31/2025 06:31 PM Dulcolax (bisacodyl) (bisacodyl) 5 mg tablet,delayed release (DR/EC) Once A Day - PRN 2 tabs/10mg, oral, Once A Day - PRN, Give if no results from MOM Active Dulcolax (bisacodyl) (bisacodyl) 10 mg suppository Once A Day - PRN 1 suppository, rectal, Once A Day - PRN, Give rectally if can't take p/o, if no results from MOM Active duloxetine 30 mg capsule,delaye d release(DR/EC) Twice A Day 1 cap, oral, Twice A Day Active 04/01/2025 07:19 AM ferrous sulfate 325 mg (65 mg iron) tablet Once A Day Every Other Day 1 tab, oral, Once A Day Every Other Day, dosing per ti; ti for polysaccharide iron complex Active 04/01/2025 07:19 AM Fleet Enema (sodium phosphates) 19-7 gram/118 mL enema Once A Day - PRN 1 application, rectal, Once A Day - PRN, Give fleets if no results from MOM and Dulcolax Active gabapentin 100 mg capsule Three Times A Day 1 cap, oral, Three Times A Day Active 04/01/2025 07:19 AM insulin glargine-yfgn 100 unit/mL (3 mL) insulin pen Once A Day 55 units, subcutaneous, Once A Day, TI for Semglee Active 03/31/2025 07:16 AM insulin lispro 100 unit/mL insulin pen Before Meals - PRN 15 units, subcutaneous, Before Meals - PRN, for blood sugar Active metformin 1,000 mg tablet Twice A Day 1 tab, oral, Twice A Day Active 04/01/2025 07:19 AM metoprolol tartrate 25 mg tablet Twice A Day 1 tab, oral, Twice A Day Active 04/01/2025 07:19 AM Milk of Magnesia (magnesium hydroxide) 400 mg/5 mL suspension Every 72 Hours - PRN 30 ml, oral, Every 72 Hours - PRN, if no BM in 3 days DO NOT GIVE TO RENAL PATIENTS--GO TO DULCOLAX ORDERS Active mupirocin 2 % ointment Twice A Day 1 charlotte, topical, Twice A Day, Left knee: Apply ointment to scabbed areas and BLADIMIR Active 03/31/2025 06:39 PM omeprazole 20 mg capsule,delaye d release(DR/EC) Once A Day 1 cap, oral, Once A Day, TI for pantoprazole Active 04/01/2025 07:19 AM oxycodone 5 mg tablet Every 4 Hours - PRN 1-2 tabs (5-10 mg), oral, Every 4 Hours - PRN, for pain; exempt R52 Active 04/01/2025 01:10 AM tramadol 50 mg tablet Every 4 Hours - PRN 1 tab, oral, Every 4 Hours - PRN, for pain; exempt R52 Active 03/31/2025 06:29 PM Tylenol (acetaminophen ) 325 mg tablet Every 6 Hours - PRN 2 tabs/650mg, oral, Every 6 Hours - PRN, as needed for PRN pain/increased temp May give rectally if necessary Active mupirocin 2 % ointment Twice A Day 1 charlotte, topical, Twice A Day 2024 Not Active 03/31/2025 01:25 PM Tubersol (tuberculin ppd) 5 tub. unit /0.1 mL solution Once - One Time 0.1ml, intradermal, Once - One Time, Administer the morning after admission 2024 Not Active 03/30/2025 05:49 PM Problems Code Type Problem ICD Code Effective Date Status ICD-10 Encounter for orthop edic aftercare following surgical amputation Z47.81 03/30/2025 Active ICD-10 Acquired absence of left leg below knee Z89.512 03/30/2025 Active ICD-10 Presence of other va scular implants and grafts Z95.828 03/30/2025 Active ICD-10 Type 2 diabetes fern itus with diabetic peripheral angiopathy without gangrene E11.51 03/30/2025 A ctive ICD-10 terminal clerk (current) use of antithrombotics/antiplatelets Z79.02 03/30/2025 Active ICD-10 USP (current) use of aspirin Z79.82 1 05/31/2024 Active ICD-10 Type 2 diabetes fern itus with diabetic neuropathy, unspecified E11.40 03/30/2025 Active ICD-10 terminal clerk (current) use of insulin Z79.4 1 05/31/2024 Active ICD-10 USP (current) use of oral hypoglycemic drugs Z79.84 03/30/2025 Active ICD-10 Essential (primary) hypertension I10 Active ICD-10 Major depressive dis order, recurrent, severe with psychotic symptoms F33.3 03/30/2025 Active ICD-10 Hyperlipidemia, unspecified E78.5 03/30/20 Active ICD-10 Low back pain, unspecified M54.50 Active ICD-10 Pain in leg, unspecified M79.606 03/30/2025 Active ICD-10 Patient's other nonc ompliance with medication regimen for other reason Z91.148 03/30/2025 Acti ve Current Allergies and Intolerances Category Substance Type Reaction Severity Begin Date Status Drug allergy Non-steroidal Agents (NSAIDS) Allergy 03/30/2025 Active Drug allergy oseltamivir Allergy 03/30/2025 Acti ve Drug allergy Sulfonamides (Sulfa) Allergy 2024 Active Drug allergy Triethanolamine Analogues Allergy 1 05/31/2024 Active Vital Signs Height: Date / Time Temperature Pulse (per minute) Respirations (per minute) Systolic BP (mmHg) Diastolic BP (mmHg) O2 Saturation (%) Weight BMI 2024 07:19 AM 98.4 F 92 20 160 76 92.0 2024 07:05 PM 98.3 F 75 19 135 67 97.0 2024 10:03 AM 97.2 F 81 18 105 60 91.0 2024 06:49 PM 98.0 F 74 18 130 70 93.0 2024 05:41 PM 180.0 lbs 2024 05:38 PM 97.6 F 95 20 137 66 94.0 Advance Directives Directive Note Full Code Insurance Providers Payer Policy type Group Name Group number Policy ID Address Ph one Medicare Part A Medicare Part A [id number] Phone: Fax: Medicare Part B Medicare Part B [id number] Phone: Fax: Clinical Quick Admit Private Phone: Fax: Private Private Phone: Fax: Private Interest Private Phone: Fax: Private Copay - Ins/HMO Private Phone: Fax: Immunizations Vaccine Service Order Taker Date Status Dose Series Complete COVID-19 Vaccine 03/30/2025 Refused Influenza Vaccine 03/30/2025 Refused Pneumococcal Vaccine 03/30/2025 Refused RSV Vaccine 03/30/2025 Refused Procedures Not available for this record Results Name Date Time Positive/Negative Value Unit Range TB test 03/30/2025 05:48 PM Unknown mm Goals Goal Date Will have a BM at least ever y 3 days for 120 days since update/last review AND/OR will not experience any complications r/t to colostomy for 120 days from update/ last review AND/OR Will not experience any GI complications for 120 days since update/last review AND/OR Will remain clean, dry between incontinent episodes thru 120days from update/last review 06/27/2025 ADL approaches will meet the resident?s needs to enhance ability, maintain abilities, or provide quality. 06/28/2025 Encounters Admission Date Discharge Date Description MRN Visit Count 03/30/2025 16:00 LTPAC Admission [id number]
--- OUTSIDE RECORDS SUMMARY | 2025-04-01 14:43 | XMS_ITS | Continuity of Care Document ---
Author Organization [facility] ([facility]) Address [address] [place] [address] Insurance Providers Payer Plan Claims Address Claims Phone Policy Number Group Number Relation Employer Guarantor Name Guarantor Guarantor Address Guarantor Phone MEDIC AID [id number] Self Marquis Ballard [address] [place] [id number] Problems Condition ICD9 code ICD10 code SNOMED code Start Date End Date S tatus Encounter for orthopedic aftercare following surgical amputation Z47.81 03/30/2025 Activ e Acquired absence of left leg below knee Z89.512 03/30/2025 Active Presence of other vascular implants and grafts Z95.828 03/30/2025 Active Type 2 diabetes mellitus with diabetic peripheral angiopathy without gangrene E11.51 03/30/2025 Active alf (current) use of antithrombotics/antiplate lets Z79.02 03/30/2025 Active alf (current) use of aspirin Z79.82 03/30/2025 Active Type 2 diabetes mellitus with diabetic neuropathy, unspecified E11.40 03/30/2025 Active alf (current) use of insulin Z79.4 03/30/2025 Active lobsterman (current) use of oral hypoglycemic drugs Z79.84 03/30/2025 Active Essential (primary) hypertension I10 03/30/2025 Active Major depressive disorder, recurrent, severe with psychotic symptoms F33.3 03/30/2025 Active Hyperlipidemia, unspecified E78.5 03/30/2025 Active Low back pain, unspecified M54.50 03/30/2025 Active Pain in leg, unspecified M79.606 03/30/2025 Active Patient's other noncompliance with medication regimen for other reason Z91.148 03/30/2025 Active Results No Results Allergies, adverse reactions, alerts Substance Reaction Date Status Type No allergies have been recorded Non Drug Non-steroidal Agents (NSAIDS) 03/30/2025 Non Drug oseltamivir 03/30/2025 Non Drug Sulfonamides (Sulfa) 03/30/2025 Non Drug Triethanolamine Analogues 03/30/2025 Non Drug Immunizations Vaccine Route Date Status Influenza Vaccine Unassigned Route of Administration 1 05/31/2024 Refused Medications Medication Instructions Route Dosage Frequency Start Date Stop Date Indications Status Dulcolax (bisacodyl) (bisacodyl) 10 mg suppository (Dulcolax (bisacodyl) (bisacodyl)) 1 suppository, rectal, Once A Day - PRN, Give rectally if can't take p/o, if no results from MOM rectal 1.0 1.0 d 2024 Active Dulcolax (bisacodyl) (bisacodyl) 5 mg tablet,delaye d release (DR/EC) (Dulcolax (bisacodyl) (bisacodyl)) 2 tabs/10mg, oral, Once A Day - PRN, Give if no results from MOM oral 1.0 1.0 d 2024 Active Milk of Magnesia (magnesium hydroxide) 400 mg/5 mL suspension (Milk of Magnesia (magnesium hydroxide)) 30 ml, oral, Every 72 Hours - PRN, if no BM in 3 daysDO NOT GIVE TO RENAL PATIENTS--GO TO DULCOLAX ORDERS oral 1.0 72.0 h 2024 Active Fleet Enema (sodium phosphates) 19-7 gram/118 mL enema (Fleet Enema (sodium phosphates)) 1 application, rectal, Once A Day - PRN, Give fleets if no results from MOM and Dulcolax rectal 1.0 1.0 d 2024 Active Tylenol (acetaminophe n) 325 mg tablet (Tylenol (acetaminophe n)) 2 tabs/650mg, oral, Every 6 Hours - PRN, as needed for PRN pain/increased tempMay give rectally if necessary oral 1.0 6.0 h 2024 Active amlodipine 5 mg tablet (amlodipine) 1 tab, oral, Once A Day oral 1.0 1.0 d 2024 Active amoxicillin-p ot clavulanate 875-125 mg tablet (amoxicillin- pot clavulanate) 1 tab, oral, Twice A Day, for 7 days oral 1.0 12.0 h 04/06 Active atorvastatin 80 mg tablet (atorvastatin ) 1 tab, oral, At Bedtime oral 1.0 2024 Active aspirin 81 mg tablet,delaye d release (DR/EC) (aspirin) 1 tab, oral, Once A Day oral 1.0 1.0 d 2024 Active Calcium with Vitamin D (calcium carbonate-vit cruz d3) 600 mg-10 mcg (400 unit) tablet (Calcium with Vitamin D (calcium carbonate-vit cruz d3)) 1 tab, oral, Twice A Day, TI for tri-carb oral 1.0 12.0 h 2024 Active clopidogrel 75 mg tablet (clopidogrel) 1 tab, oral, Once A Day oral 1.0 1.0 d 2024 Active Daily-Alonzo (with folic acid) (multivitamin with folic acid) 400 mcg tablet (Daily-Alonzo (with folic acid) (multivitamin with folic acid)) 1 tab, oral, Once A Day, TI for MVI oral 1.0 1.0 d 2024 Active doxycycline monohydrate 100 mg capsule (doxycycline monohydrate) 1 cap, oral, Twice A Day, for 7 days oral 1.0 12.0 h 04/06 Active duloxetine 30 mg capsule,delay ed release(DR/EC ) (duloxetine) 1 cap, oral, Twice A Day oral 1.0 12.0 h 2024 Active ferrous sulfate 325 mg (65 mg iron) tablet (ferrous sulfate) 1 tab, oral, Once A Day Every Other Day, dosing per ti; ti for polysaccharide iron complex oral 1.0 1.0 d 2024 Active gabapentin 100 mg capsule (gabapentin) 1 cap, oral, Three Times A Day oral 1.0 8.0 h 2024 Active insulin lispro 100 unit/mL insulin pen (insulin lispro) 15 units, subcutaneous, Before Meals - PRN, for blood sugar subcutaneo us 1.0 2024 Active insulin glargine-yfgn 100 unit/mL (3 mL) insulin pen (insulin glargine-yfgn ) 55 units, subcutaneous, Once A Day, TI for Semglee subcutaneo us 1.0 1.0 d 2024 Active metformin 1,000 mg tablet (metformin) 1 tab, oral, Twice A Day oral 1.0 12.0 h 2024 Active metoprolol tartrate 25 mg tablet (metoprolol tartrate) 1 tab, oral, Twice A Day oral 1.0 12.0 h 2024 Active mupirocin 2 % ointment (mupirocin) 1 charlotte, topical, Twice A Day topical 1.0 12.0 h 03/31 Active omeprazole 20 mg capsule,delay ed release(DR/EC ) (omeprazole) 1 cap, oral, Once A Day, TI for pantoprazole oral 1.0 1.0 d 2024 Active oxycodone 5 mg tablet (oxycodone) 1-2 tabs (5-10 mg), oral, Every 4 Hours - PRN, for pain; exempt R52 oral 1.0 4.0 h 2024 Active tramadol 50 mg tablet (tramadol) 1 tab, oral, Every 4 Hours - PRN, for pain; exempt R52 oral 1.0 4.0 h 2024 Active Tubersol (tuberculin ppd) 5 tub. unit /0.1 mL solution (Tubersol (tuberculin ppd)) 0.1ml, intradermal, Once - One Time, Administer the morning after admission intraderma l 1.0 03/30 Active mupirocin 2 % ointment (mupirocin) 1 charlotte, topical, Twice A Day, Left knee: Apply ointment to scabbed areas and BLADIMIR topical 1.0 12.0 h 2024 Active Vital Signs Date Vital Result Comment 03/30/2025 06:49 PM Temperature (8310-5) 98 [degF] Oxygen Saturation (80672-1) 93 % Respiratory Rate (9279-1) 18 /min Heart Rate (8867-4) 74 /min Blood Pressure Systolic (8480-6) 130 mm[Hg] Blood Pressure Diastolic (8462-4) 70 mm[Hg] 03/30/2025 05:41 PM Body mass index (BMI) [Ratio] (391 56-5) 0.0 kg/m2 Body Weight (12884-3) 180 [lb_av] 03/30/2025 05:38 PM Temperature (8310-5) 97.6 [degF] Oxygen Saturation (85379-3) 94 % Respiratory Rate (9279-1) 20 /min Heart Rate (8867-4) 95 /min Blood Pressure Systolic (8480-6) 137 mm[Hg] Blood Pressure Diastolic (8462-4) 66 mm[Hg] 03/31/2025 10:03 AM Temperature (8310-5) 97.2 [degF] Oxygen Saturation (61826-5) 91 % Respiratory Rate (9279-1) 18 /min Heart Rate (8867-4) 81 /min Blood Pressure Systolic (8480-6) 105 mm[Hg] Blood Pressure Diastolic (8462-4) 60 mm[Hg] 03/31/2025 07:05 PM Temperature (8310-5) 98.3 [degF] Oxygen Saturation (67043-0) 97 % Respiratory Rate (9279-1) 19 /min Heart Rate (8867-4) 75 /min Blood Pressure Systolic (8480-6) 135 mm[Hg] Blood Pressure Diastolic (8462-4) 67 mm[Hg] 04/01/2025 07:19 AM Temperature (8310-5) 98.4 [degF] Oxygen Saturation (00365-7) 92 % Respiratory Rate (9279-1) 20 /min Heart Rate (8867-4) 92 /min Blood Pressure Systolic (8480-6) 160 mm[Hg] Blood Pressure Diastolic (8462-4) 76 mm[Hg] Social History No smoking Hx information available Encounters Type CPT Code Date Location Provider Indication s encounter report 03/30/2025 04:00 PM Aura Wilkinson DO 01 Advance Directives Directive Description Verification Date Supporting Document(s) Other Directive
--- NOTE | 2025-04-01 15:18 | ED_ITS ---
HPI - Wound/Laceration 2 General: Chief Complaint: Wound/Laceration Stated Complaint: LEFT LEG PAIN Source: patient, EMS and old records reviewed Mode of arrival: EMS Limitations: no limitations History of Present Illness: Patient is a 64-year-old male who presents to the emergency department via EMS from [facility] due to increased redness to the amputation site of his left lower extremity, and reported increased confusion. Reviewing patient's medical history it appears that on 03/27 he had left below the knee amputation due to chronic ulcerated wounds of his left heel and there was evidence of osteomyelitis of which he was admitted to the hospital for IV antibiotics at that time. Subsequently discharged to [facility] on Augmentin and doxycycline, overall has been doing well aside from the new confusion and redness that is increasing. He also has reportedly 2 new ulcerated lesions to his left anterior knee. Patient states that he has been having fevers and chills at the skilled nursing, no chest pain, shortness of breath, or abdominal pain. He is not reporting much pain at this time. Associated warmth with the redness to the left below the knee amputation, no other symptoms reported this time. His vitals are stable he is afebrile. Not appearing septic at this time by vitals. Onset (ago): day(s) Extremity Location: Left: lower leg Context: other (Left below the knee amputation 5 days ago) Associated symptoms: Reports chills and fever(s); Denies nausea or vomiting Related Data Home Medications ?Medication ?Instructions ?Recorded ?Confirmed ascorbic acid (vitamin C) 1,000 mg 1 g PO QAM 12/13/20 03/25/25 tablet (Vitamin C) aspirin 81 mg tablet,delayed 81 mg PO DAILY 06/14/21 1 05/26/24 release clopidogrel 75 mg tablet 75 mg PO DAILY 10/25/2403/07 gabapentin 100 mg capsule 100 mg PO TID 10/25/2403/25 insulin lispro 100 unit/mL 15 unit SUBCUT TID PRN bloo d sugar 10/25/24 03/25/25 subcutaneous pen (Humalog KwikPen (U-100) Insulin) insulin glargine-yfgn 100 unit/mL 55 unit SUBCUT DAILY 02/05/25 03/25/25 (3 mL) subcutaneous pen (Semglee (insulin glargine-yfgn) Pen) metformin 1,000 mg tablet 1,000 mg PO BID 02/05/25 Previous Rx's ?Medication ?Instructions ?Recorded acetaminophen 500 mg tablet 500 mg PO TID PRN Pain #0 tabs 10/27/19 (Tylenol Extra Strength) articulating AFO with accommodated #1 ea 12/04/21 orthotic and toe filler to left cam boot #1 ea 04/29/22 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,habitat management coordinator,cont #1 ea 10/02/22 (Dexcom G7 Appliance Technician) pen needle, diabetic 32 gauge x ##100 10/16/22 (TechLITE Pen Needle) atorvastatin 80 mg tablet 80 mg PO BEDTIME #90 tabs blood sugar diagnostic (OneTouch #300 ea 03/10/24 Ultra Test strips) lancets (Accu-Chek Softclix #100 ea 03/10/24 Lancets) diabetic shoes #1 ea 07/13/24 insulin pump cart,auto,BT,G6/7 #15 ea 09/17/24 (Omnipod 5 G6-G7 Pods (Gen 5) subcutaneous cartridge) insulin pump cartridge,auto #1 ea 09/17/24 dose,BT,G6/G7 with controller subcutaneous (Omnipod 5 G6-G7 Intro Kit(Gen 5) subcutaneous cartridge and controller) metoprolol tartrate 25 mg tablet 25 mg PO BID #180 tab s 10/26/24 duloxetine 30 mg capsule,delayed 30 mg PO BID #60 caps 12/28/24 release 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 sensor (Dexcom G7 #9 ea 01/14/25 Sensor device) gauze bandage 2 1/4 X 3 yard #96 ea 02/05/25 (Kerlix) mupirocin 2 % topical ointment 1 applic topical BID #2 2 grams 02/05/25 (Centany) white petrolatum 1 X 8 bandage #200 ea 02/05/25 (Vaseline Petrolatum Gauze) amlodipine 5 mg tablet 5 mg PO DAILY 60 days #60 ta bs 03/29/25 amoxicillin 875 mg-potassium 1 tab PO BID 7 days #14 t abs 03/29/25 clavulanate 125 mg tablet calcium 600 mg (as 1 tab PO BID 60 days #120 ta bs 03/29/25 carbonate)-vitamin D3 10 mcg (400 unit) tablet doxycycline monohydrate 100 mg 100 mg PO BID 7 days #1 4 tabs 03/29/25 tablet multivitamin with folic acid 400 1 tab PO DAILY 60 day s #60 tabs 03/29/25 mcg tablet (Thera) oxycodone 5 mg tablet 5 - 10 mg (1 - 2 x 5 mg) PO Q4H 03/29/25 PRN Moderate To Severe Pain 1st 7 days #15 tabs pantoprazole 40 mg tablet,delayed 40 mg PO DAILY 60 da ys #60 tabs 03/29/25 release polysaccharide iron complex 150 mg 150 mg PO BIDWM 30 days #30 caps 03/29/25 iron capsule (Ferrex) tramadol 50 mg tablet 50 mg PO Q4H PRN Mild Pain 7 days 03/29/25 #15 tabs Allergies Allergy/AdvReac Type Severity Reaction Status Date / Time Sulfa (Sulfonamide Allergy Mild Unknown Verified 04/01/25 14:43 Antibiotics) NSAIDS (Non-Steroidal Allergy Unknown ALGY-Anaphy Verified 04/01/25 14:43 Anti-Inflamma (NSAIDS laxis,Unkno (Non-Steroidal wn Anti-Inflammatory Drug)) oseltamivir (From Tamiflu) Allergy ADR-Nausea Verified 04/01/25 14:43 triethanolamine (From Allergy ALGY-Rash Verified 04/01/25 14:43 Cerumenex) Review of Systems 2 General: Reports: 10 or more systems reviewed and unremarkable except in HPI and below Const: Reports: fever(s) and chills; Denies: fatigue Eyes: Denies: change in vision ENMT: Denies: throat pain, ear or mastoid pain or nasal discharge Card: Denies: chest pain, palpitations, swelling of feet/ankles or lightheadedness Resp: Denies: dyspnea, productive cough or wheezing GI: Denies: abdominal pain, nausea, vomiting, diarrhea or constipation : Denies: flank pain, difficulty urinating, dysuria or urinary frequency Musc: Denies: neck pain, back pain, extremity pain or joint pain Skin/Breast: Reports: erythema (Left lower extremity), new lesions (Ulcers left anterior knee) and other (Warmth of the lower extremity); Denies: rash Neuro: Denies: headache(s), numbness in extremities or weakness in extremities PFSH ED 2 PFSH: Medical History Psychiatric care Uncontrolled type 2 diabetes mellitus, with long-term current use of insulin Tobacco dependency HTN (hypertension), benign Major depressive disorder Low back pain radiating down leg Essential hypertension Hypotestosteronemia in male Dyslipidemia Surgical History History of amputation of lesser toe of both feet H/O total hip arthroplasty [place] Accolade II total hip system: The size 58 mm solid back acetabular shell with an F alpha code and an MDM liner size 46 mm inner diameter by F alpha code. An Accolade II size 6 x 127 degree neck angle hip stem, femoral head size 28 mm outer diameter and +0 mm offset inside of an MDM insert size inner diameter 28 mm to match the 46F History of total left hip arthroplasty Hx of cataract extraction History of incision and drainage left foot History of amputation of toe Right second and left second and third History of eye surgery Status post vasectomy Family History Father CAD (coronary artery disease) Diabetes Mother Cancer Chronic kidney disease (CKD) Diabetes Lung disease Grandmother Dementia Stroke Family/Other Suicide Other Hypertension Denies family history of Clotting disorder Anesthesia complication Bleeding disorder Social History Smoking and tobacco/nicotine status: current every day tobacco/nicotine user cigarettes Packs smoked per day: 1 Alcohol intake: current Alcohol intake frequency: holidays/special occasions only Substance/Drug Use: never Physical Exam 2 Const: COMMON NORMALS: no acute distress, patient oriented x3, no limitations, alert and well nourished OTHER: Chronically ill-appearing. Alert and oriented x 3 however unable to tell me where he had his surgery done HENMT: COMMON NORMALS: normocephalic and atraumatic HEAD & SCALP: n ormocephalic and atraumatic Neck/C-Spine: COMMON NORMALS: full ROM, no lymphadenopathy, supple and no meningeal signs Resp: COMMON NORMALS: normal respiratory effort, No use of accessory muscles and clear to auscultation bilaterally AUSCULTATION: clear to auscultation bilaterally Cardio: COMMON NORMALS: regular rate and regular rhythm RATE: regular rate RHYTHM: regular rhythm GI: COMMON NORMALS: non-tender INSPECTION: Yes central obesity Extremity: COMMON NORMALS: full ROM and capillary refill normal NARRATIVE EXTREMITY EXAM: Left below the knee amputation. Incision appears well with no drainage. There is surrounding erythema extending proximally up the left lower extremity with mild warmth noted. To the left anterior knee there are 2 separate areas of ulceration, notably the largest is over the left patella with underlying granulation. The sensations to the left lower extremity are intact Neuro: COMMON NORMALS: patient oriented x3 SENSORIUM/ORIENTATION: Yes alert MENINGEAL SIGNS: Yes no meningeal signs Course 2 Vital Signs: Vital signs: Vital Signs Temperature 98.3 F 04/01/25 14:31 Pulse Rate 85 04/01/25 14:31 Respiratory Rate 14 04/01/25 14:31 Blood Pressure 173/88 04/01/25 14:31 Pulse Oximetry 96 04/01/25 14:31 Oxygen Delivery Me thod Room Air 04/01/25 14:31 MDM - Wound/Laceration Medical Decision Making Patient presented for evaluation of worsening redness and warmth of his left stump where he recently had BKA here in the hospital. He has been at [facility] was also noted that he was having symptoms of altered mental status, he is unable to tell me where he had the surgery done but otherwise can tell me his name, birthday, and the time/month. He has not been febrile here, but he reports to me subjective chills and fevers at skilled nursing. No nausea or vomiting, clinically he is ill-appearing but not toxic. He does have significant leukocytosis with his lab work with left shift and mild thrombocytosis. His ESR and CRP are both elevated but this is moderate considering he is 5 days postop. X-ray shows no gas tracking or other pathologic postoperative changes. He does have 2 reportedly new ulcerated lesions to his left anterior knee, but overall with no drainage or bleeding from the incision this appears to be mild at this time with no signs or symptoms of septicemia. However he has a strong history of osteomyelitis, which prompted his BKA in the first place, so he is started on IV Vanco and meropenem, as he was treated with this while he was hospitalized last time. Previously had been on doxycycline and Augmentin, and we will admit him for IV antibiotics at this time and Dr. Storey is consulted he will consult the patient in the hospital tomorrow. Spoke to Dr. Antonio, agreeing to see the patient in the hospital. Dr. Savage putting in admit orders at this time. Lab Data 04/01/25 15:35 04/01/25 15:35 Radiology Impressions Tibia/Fibula X-Ray 04/01/25 14:42 IMPRESSION: Postoperative changes. Laboratory Results WBC 20.34 10^3/uL (3.29-11.43) H 04/01/25 15:35 RBC 3.50 10^6/uL (3.85-5.65) L 04/01/25 15:35 Hgb 9.90 g/dL (11.27-16.99) L 04/01/25 15:35 Hct 30.0 % (37-53) L 04/01/25 15:35 MCV 85.7 fl (82-101) 04/01/25 15:35 MCH 28.3 pg (27-33) 04/01/25 15:35 MCHC 33.0 g/dL (30-55) 04/01/25 15:35 RDW 12.6 % (12.1-15.1) 04/01/25 15:35 Plt Count 424 10^3/cmm (157-399) H 04/01/25 15:35 MPV 9.6 fL (7.4-10.4) 04/01/25 15:35 Neut % (Auto) 76.6 % 04/01/25 15:35 Lymph % (Auto) 9.3 % 04/01/25 15:35 [place] % (Auto) 11.4 % 04/01/25 15:35 Eos % (Auto) 1.0 % 04/01/25 15:35 Baso % (Auto) 0.3 % 04/01/25 15:35 Neut # (Auto) 15.59 10^3/uL (1.8-7.7) H 04/01/25 15:35 Lymph # (Auto) 1.9 10^3/uL (0.8-4.8) 04/01/25 15:35 [place] # (Auto) 2.3 10^3/uL (0.2-0.9) H 04/01/25 15:35 Eos # (Auto) 0.2 10^3/uL (0.0-0.8) 04/01/25 15:35 Baso # (Auto) 0.1 10^3/uL (0.0-0.1) 04/01/25 15:35 Nucleated RBC % (auto) 0 % 04/01/25 15:35 Nucleated RBCs # 0.0 /100WBC 04/01/25 15:35 ESR 28 mm/hr (0-10) H 04/01/25 15:35 Sodium 134 mmol/L (136-145) L 04/01/25 15:35 Potassium 3.7 mmol/L (3.5-5.1) 04/01/25 15:35 Chloride 100 mmol/L (98-107) 04/01/25 15:35 Carbon Dioxide 23 mmol/L (22-29) 04/01/25 15:35 Anion Gap 14.7 (5-19) 04/01/25 15:35 BUN 13 mg/dL (8-23) 04/01/25 15:35 Creatinine 1.2 mg/dL (0.7-1.2) 04/01/25 15:35 GFR Calculation 60.8 mL/min (90-130) L 04/01/25 15:35 Glucose 56 mg/dL (65-115) L 04/01/25 15:35 Calculated Osmolality 276 mOsm/kg (285-295) L 04/01/25 15:35 Lactic Acid 1.4 mmol/L (0.5-2.2) 04/01/25 15:35 Calcium 8.4 mg/dL (8.5-10.5) L 04/01/25 15:35 Total Bilirubin 0.3 mg/dL (0.15-1.2) 04/01/25 15:35 AST 21 U/L (0-40) 04/01/25 15:35 ALT 7 U/L (0-41) 04/01/25 15:35 Alkaline Phosphatase 147 U/L (40-130) H 04/01/25 15:35 C-Reactive Protein 116.7 mg/L (0.0-4.9) H 04/01/25 15:35 Total Protein 7.0 g/dL (6.6-8.7) 04/01/25 15:35 Albumin 2.4 g/dL (3.5-5.2) L 04/01/25 15:35 Globulin 4.6 g/dL (1.3-4.6) 04/01/25 15:35 All radiology interpretation(s) finalized by discharge Discharge Plan Discharge Patient Disposition: Admitted As Inpatient Clinical Impression: Cellulitis of left lower extremity Amputation of left lower extremity below knee Qualifiers: Encounter type: initial encounter Qualified Code(s): S88.112A - Complete traumatic amputation at level between knee and ankle, left lower leg, initial encounter Condition: Stable Coding Level of Care Code ED Ui Engineer for Osmar Smith
[2025-04-01 15:42] LABS: Hematocrit 30.0 % (37-53); Hemoglobin 9.90 g/dL (11.27-16.99); Mean Corpuscular HGB Conc 33.0 g/dL (30-55); Mean Corpuscular Hemoglobin 28.3 pg (27-33); Mean Corpuscular Volume 85.7 fl (82-101); Nucleated Red Blood Cells % 0 %; Platelet Count 424 10^3/cmm (157-399); Red Blood Count 3.50 10^6/uL (3.85-5.65); White Blood Count 20.34 10^3/uL (3.29-11.43)
[2025-04-01 16:06] LABS: Alanine Aminotransferase 7 U/L (0-41); Albumin Level 2.4 g/dL (3.5-5.2); Alkaline Phosphatase 147 U/L (40-130); Anion Gap 14.7 (5-19); Aspartate Amino Transferase 21 U/L (0-40); Blood Urea Nitrogen 13 mg/dL (8-23); Calcium 8.4 mg/dL (8.5-10.5); Carbon Dioxide 23 mmol/L (22-29); Chloride 100 mmol/L (98-107); Globulin 4.6 g/dL (1.3-4.6); Glucose 56 mg/dL (65-115); Lactic Sepsis W/Reflex 1.4 mmol/L (0.5-2.2); Osmolality Calculated 276 mOsm/kg (285-295); Potassium 3.7 mmol/L (3.5-5.1); Sodium 134 mmol/L (136-145); Total Protein 7.0 g/dL (6.6-8.7)
[2025-04-01] MEDS: meropenem 1,000 mg SDV 1000 MG IVP (16:59)
--- NOTE | 2025-04-01 19:37 | PM.HP ---
Providers/Chief Complaint Admitting Physician: Dinesh Antonio MD Primary Care Provider: Juany Guajardo DO Chief Complaint: LEFT LEG PAIN History of Present Illness Marquis Ballard is a 64 year old male with prior medical history of PAD, DM, ulcers, cellulitis, JOSÉ, bailey, left BKA, gangrene, nicotine dependence, and noncompliance presenting with complaints of left leg pain. Patient resides in a half-way. Patient had history of left heel ulceration and osteomyelitis despite IV antibiotics. On 03/27/25, patient had a left BKA and was discharged to his facility (03/30/25) on augmentin and doxycycline. Today, he had increased left leg pain as well as confusion. Staff also noted that he has fever, chills, and two new areas of ulceration to the anterior aspect of his left knee. EMS was called and he was transported to [facility] for assessment. Of note, family stressors; patient is and currently lives alone. In the ED, BP 182/90, HR 86, RR 14, T 98.3, O2 94% on room air. WBC 20.34, HGB 9.90, PLT 424. NA 134. Glucose 56. AST/ALT WNL. ALP 147. Albumin 2.4. Left leg x-ray unremarkable, see full results. Will admit to the Hospitalist Service for further evaluation and treatment. Review of Systems General: Reports: 10 or more systems reviewed and unremarkable except in HPI and below Const: Reports: fever(s) and chills; Denies: fatigue Eyes: Denies: change in vision ENMT: Denies: throat pain, ear or mastoid pain or nasal discharge Card: Denies: chest pain, palpitations, swelling of feet/ankles or lightheadedness Resp: Denies: dyspnea, productive cough or wheezing GI: Denies: abdominal pain, nausea, vomiting, diarrhea or constipation : Denies: flank pain, difficulty urinating, dysuria or urinary frequency Musc: Denies: neck pain, back pain, extremity pain or joint pain Skin/Breast: Reports: erythema (Left lower extremity), new lesions (Ulcers left anterior knee) and other (Warmth of the lower extremity); Denies: rash Neuro: Denies: headache(s), numbness in extremities or weakness in extremities Medications/Allergies Home Medications ?Medication ?Instructions ?Recorded ?Confirmed ?Last Taken ?Type acetaminophen 500 mg tablet 500 mg PO TID PRN Pain #0 tabs 10/27/19 03/25/25 10/11/24 Rx (Tylenol Extra Strength) ascorbic acid (vitamin C) 1,000 mg 1 g PO QAM 12/13/20 03/25/25 02/04/25 History tablet (Vitamin C) aspirin 81 mg tablet,delayed 81 mg PO DAILY 06/14/21 03/25/25 03/24/25 History release articulating AFO with accommodated #1 ea 12/04/21 03/25/25 10/11/24 Rx orthotic and toe filler to left cam boot #1 ea 04/29/22 03/25/25 10/11/24 Rx 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,research and development engineer,cont #1 ea 10/02/22 03/25/25 10/11/24 Rx (Dexcom G7 Safety Supervisor) pen needle, diabetic 32 gauge x ##100 10/16/22 03/25/25 10/11/24 Rx /32 (TechLITE Pen Needle) atorvastatin 80 mg tablet 80 mg PO BEDTIME #90 tabs 03/10/24 03/25/25 02/04/25 Rx blood sugar diagnostic (OneTouch #300 ea 03/10/24 03/25/25 10/11/24 Rx Ultra Test strips) lancets (Accu-Chek Softclix #100 ea 03/10/24 03/25/25 10/11/24 Rx Lancets) diabetic shoes #1 ea 07/13/24 03/25/25 10/11/24 Rx insulin pump cart,auto,BT,G6/7 #15 ea 09/17/24 03/25/25 10/11/24 Rx (Omnipod 5 G6-G7 Pods (Gen 5) subcutaneous cartridge) insulin pump cartridge,auto #1 ea 09/17/24 03/25/25 10/11/24 Rx dose,BT,G6/G7 with controller subcutaneous (Omnipod 5 G6-G7 Intro Kit(Gen 5) subcutaneous cartridge and controller) clopidogrel 75 mg tablet 75 mg PO DAILY 10/25/24 03/25/25 02/04/25 History gabapentin 100 mg capsule 100 mg PO TID 10/25/24 03/25/25 02/04/25 History insulin lispro 100 unit/mL 15 unit SUBCUT TID PRN blood sugar 10/25/24 03/25/25 Unknown History subcutaneous pen (Humalog KwikPen (U-100) Insulin) metoprolol tartrate 25 mg tablet 25 mg PO BID #180 tabs 10/26/24 03/25/25 02/04/25 Rx duloxetine 30 mg capsule,delayed 30 mg PO BID #60 caps 12/28/24 03/25/25 02/04/25 Rx release 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 sensor (Dexcom G7 #9 ea 01/14/25 03/25/25 Unknown Rx Sensor device) gauze bandage 2 1/4 X 3 yard #96 ea 02/05/25 03/25/25 Unknown Rx (Kerlix) insulin glargine-yfgn 100 unit/mL 55 unit SUBCUT DAILY 02/05/25 03/25/25 02/04/25 History (3 mL) subcutaneous pen (Semglee (insulin glargine-yfgn) Pen) metformin 1,000 mg tablet 1,000 mg PO BID 02/05/25 03/25/25 Unknown History mupirocin 2 % topical ointment 1 applic topical BID #22 grams 02/05/25 03/25/25 Unknown Rx (Centany) white petrolatum 1 X 8 bandage #200 ea 02/05/25 03/25/25 Unknown Rx (Vaseline Petrolatum Gauze) amlodipine 5 mg tablet 5 mg PO DAILY 60 days #60 tabs 03/29/25 Unknown Rx amoxicillin 875 mg-potassium 1 tab PO BID 7 days #14 tabs 03/29/25 Unknown Rx clavulanate 125 mg tablet calcium 600 mg (as 1 tab PO BID 60 days #120 tabs 03/29/25 Unknown Rx carbonate)-vitamin D3 10 mcg (400 unit) tablet doxycycline monohydrate 100 mg 100 mg PO BID 7 days #14 tabs 03/29/25 Unknown Rx tablet multivitamin with folic acid 400 1 tab PO DAILY 60 days #60 tabs 03/29/25 Unknown Rx mcg tablet (Thera) oxycodone 5 mg tablet 5 - 10 mg (1 - 2 x 5 mg) PO Q4H 03/29/25 Unknown Rx PRN Moderate To Severe Pain 1st 7 days #15 tabs pantoprazole 40 mg tablet,delayed 40 mg PO DAILY 60 days #60 tabs 03/29/25 Unknown Rx release polysaccharide iron complex 150 mg 150 mg PO BIDWM 30 days #30 caps 03/29/25 Unknown Rx iron capsule (Ferrex) tramadol 50 mg tablet 50 mg PO Q4H PRN Mild Pain 7 days 03/29/25 Unknown Rx #15 tabs Allergies Allergy/AdvReac Type Severity Reaction Status Date / Time Sulfa (Sulfonamide Allergy Mild Unknown Verified 04/01/25 14:43 Antibiotics) NSAIDS (Non-Steroidal Allergy Unknown ALGY-Anaphy Verified 04/01/25 14:43 Anti-Inflamma (NSAIDS laxis,Unkno (Non-Steroidal wn Anti-Inflammatory Drug)) oseltamivir (From Tamiflu) Allergy ADR-Nausea Verified 04/01/25 14:43 triethanolamine (From Allergy ALGY-Rash Verified 04/01/25 14:43 Cerumenex) PFSH Acute PFSH: Medical History Psychiatric care Uncontrolled type 2 diabetes mellitus, with long-term current use of insulin Tobacco dependency HTN (hypertension), benign Major depressive disorder Low back pain radiating down leg Essential hypertension Hypotestosteronemia in male Dyslipidemia Surgical History History of amputation of lesser toe of both feet H/O total hip arthroplasty [place] Accolade II total hip system: The size 58 mm solid back acetabular shell with an F alpha code and an MDM liner size 46 mm inner diameter by F alpha code. An Accolade II size 6 x 127 degree neck angle hip stem, femoral head size 28 mm outer diameter and +0 mm offset inside of an MDM insert size inner diameter 28 mm to match the 46F History of total left hip arthroplasty Hx of cataract extraction History of incision and drainage left foot History of amputation of toe Right second and left second and third History of eye surgery Status post vasectomy Family History Father CAD (coronary artery disease) Diabetes Mother Cancer Chronic kidney disease (CKD) Diabetes Lung disease Grandmother Dementia Stroke Family/Other Suicide Other Hypertension Denies family history of Clotting disorder Anesthesia complication Bleeding disorder Social History Smoking and tobacco/nicotine status: current every day tobacco/nicotine user cigarettes Packs smoked per day: 1 Alcohol intake: current Alcohol intake frequency: holidays/special occasions only Substance/Drug Use: never Vitals/I&O/Wt Last Vital Signs Temp 98.3 F 04/01/25 14:31 Pulse 86 04/01/25 18:30 Resp 14 04/01/25 14:31 BP 182/90 04/01/25 18:30 Pulse Ox 94 04/01/25 18:30 O2 Del Method Room Air 04/01/25 14:31 Weight last 48 hrs Weight 83.007 kg Physical Exam Narrative: General: Alert and oriented, lying comfortably without any distress HEENT: Normocephalic, atraumatic, grossly unremarkable exam Cardio: normal rate rhythm, normal S1-S2 without any murmurs, rubs, or gallops and JVD normal Respiratory: normal vascular breathing on auscultation without any wheezes, stridor, rhonchi GI: Abdomen soft, nontender, nondistended, normoactive bowel sounds present all 4 quadrants, Neuro: intact cranial nerves motor and sensory and cerebellar/coordination function without any focal neurological deficit Behavior: Appropriate and cooperative Extremities: Adequate palpable pulses, mild trace edema, below-knee amputation of the left leg. Anterior left leg ulcerations. Data 04/01/25 15:35 04/01/25 15:35 Micro: Microbiology 04/01/25 15:36 Blood Culture - Preliminary Blood SPECIMEN COLLECTED 04/01/25 15:35 Blood Culture - Preliminary Blood SPECIMEN COLLECTED A&P Assessment and plan 1. Amputation of left lower extremity below knee: BKA 03/27/2025 Tibia-fibula x-ray; postoperative changes With increased pain and new areas of ulceration Pain management Wound care On Plavix 2. Essential hypertension: 160s?180s systolic Continue home metoprolol, amlodipine BP monitoring EKG Telemetry 3. Fever and chills: Subjective fever with fatigue, confusion Temperature 98.3 > 97.5 today Tylenol as needed WBC 11.19 when he discharged on 03/26/2025 now WBC 20.34 on this admission despite being discharged on p.o. antibiotics ESR 28, CRP 116.7 Lactic 1.4 Infection monitoring 4. Anemia: Hgb 10.20 > 7.70 > 9.90 Transfuse to keep Hgb greater than 7 TIBC, folate CBC monitoring 5. DM2 (diabetes mellitus, type 2): Glucose 56 A1c 10.6 On inpatient stay last week he averaged at least 120 mg/DL Tonight, he has been in the 50s?80s with frequent rechecks Juice, D50 given for correction RN and charge nurse aware and monitoring PDMP PDMP Reviewed: Not Reviewed Attestations Medical Necessity Statement*: Patient expected to stay 2 additional midnights for IV antibiotics and postop left leg BKA assessment. Diagnoses Amputation of left lower extremity below knee S88.112A Essential hypertension I10 Fever and chills R50.9 Anemia D64.9 DM2 (diabetes mellitus, type 2) E11.9
[2025-04-01 19:53] LABS: Estmated Average Glucose 258; Hemoglobin A1C 10.6 % (4.0-6.0)
--- NOTE | 2025-04-01 20:18 | PHA.VACGOAL ---
Vancomycin Goal - Goal Vancomycin Goal:: 15-20 mg/L Vancomycin Indication:: Osteo - Therapy Day of therpy:: Day []of [] . Actual body weight (kg): 83.007 kg - Data Labs: WBC 20.34 10^3/uL (3.29-11.43) H 04/01/25 15:35 RBC 3.50 10^6/uL (3.85-5.65) L 04/01/25 15:35 Hgb 9.90 g/dL (11.27-16.99) L 04/01/25 15:35 Hct 30.0 % (37-53) L 04/01/25 15:35 MCV 85.7 fl (82-101) 04/01/25 15:35 MCH 28.3 pg (27-33) 04/01/25 15:35 MCHC 33.0 g/dL (30-55) 04/01/25 15:35 RDW 12.6 % (12.1-15.1) 04/01/25 15:35 Sodium 134 mmol/L (136-145) L 04/01/25 15:35 Potassium 3.7 mmol/L (3.5-5.1) 04/01/25 15:35 Chloride 100 mmol/L (98-107) 04/01/25 15:35 Carbon Dioxide 23 mmol/L (22-29) 04/01/25 15:35 Anion Gap 14.7 (5-19) 04/01/25 15:35 BUN 13 mg/dL (8-23) 04/01/25 15:35 Creatinine 1.2 mg/dL (0.7-1.2) 04/01/25 15:35 GFR Calculation 60.8 mL/min (90-130) L 04/01/25 15:35 Treatment plan:: new consult Regimen:: 2000 MG NOW 1000 MG Q12H MAINTENANCE
[2025-04-01] MEDS: pantoprazole 40 mg SDV IVP (20:40)
[2025-04-02] VITALS (9 sets, daily range): BP systolic 151–175; BP diastolic 73–84; PULSE 71–90; RESP 16–18; TEMP 36.4–36.7; O2SAT 92–95; BMI 27.0
[2025-04-02] MEDS: meropenem 1,000 mg SDV 1000 MG IVP ×2 (00:49→09:19)
[2025-04-02 03:31] LABS: Hematocrit 30.4 % (37-53); Hemoglobin 10.20 g/dL (11.27-16.99); Mean Corpuscular HGB Conc 33.6 g/dL (30-55); Mean Corpuscular Hemoglobin 28.5 pg (27-33); Mean Corpuscular Volume 84.9 fl (82-101); Nucleated Red Blood Cells % 0 %; Platelet Count 485 10^3/cmm (157-399); Red Blood Count 3.58 10^6/uL (3.85-5.65); White Blood Count 19.05 10^3/uL (3.29-11.43)
[2025-04-02 03:52] LABS: Anion Gap 14.6 (5-19); Blood Urea Nitrogen 11 mg/dL (8-23); Calcium 8.3 mg/dL (8.5-10.5); Carbon Dioxide 24 mmol/L (22-29); Chloride 99 mmol/L (98-107); Glucose 44 mg/dL (65-115); Magnesium 1.3 mg/dL (1.7-2.3); Osmolality Calculated 274 mOsm/kg (285-295); Potassium 3.6 mmol/L (3.5-5.1); Sodium 134 mmol/L (136-145)
[2025-04-02] MEDS: multivitamin therapeutic Tablet 1 TAB PO (05:11)
[2025-04-02] MEDS: calcium carb-vit d 600mg/400unit 1 Tablet 1 EACH PO ×2 (05:11→17:22)
[2025-04-02] MEDS: mupirocin oint 22 gm 1 APPLIC TOPICAL ×2 (05:12→17:47)
--- NOTE | 2025-04-02 06:30 | PC.NURSE ---
Patient wanted to get on the bedside commode. This nurse and [employer] used the [id number] to transfer him to the bedside commode. He did great while transferring with the sit to stand.
--- NOTE | 2025-04-02 09:48 | PM.CONSULT ---
Providers/Reason For Consult Consulting Physician/Specialty*: Hospitalist Reason for Consult*: Recent BKA with increased redness Attending Physician: Suzie Hernandez MD Primary Care Provider: Juany Guajardo DO History of Present Illness History of Present Illness Marquis Ballard is a 64 year old male On 03/27/25, patient had a left BKA and was discharged to his facility (03/30/25) on augmentin and doxycycline. He had increased left leg pain as well as confusion. Staff also noted that he has fever, chills, and two new areas of ulceration to the anterior aspect of his left knee. Today when I saw him in the room patient was alert oriented pain was controlled and patient was feeling good he want to go back to the [facility]. Review of Systems General: Reports: 10 or more systems reviewed and unremarkable except in HPI and below Const: Reports: fever(s) and chills; Denies: fatigue Eyes: Denies: change in vision ENMT: Denies: throat pain, ear or mastoid pain or nasal discharge Card: Denies: chest pain, palpitations, swelling of feet/ankles or lightheadedness Resp: Denies: dyspnea, productive cough or wheezing GI: Denies: abdominal pain, nausea, vomiting, diarrhea or constipation : Denies: flank pain, difficulty urinating, dysuria or urinary frequency Musc: Denies: neck pain, back pain, extremity pain or joint pain Skin/Breast: Reports: erythema (Left lower extremity), new lesions (Ulcers left anterior knee) and other (Warmth of the lower extremity); Denies: rash Neuro: Denies: headache(s), numbness in extremities or weakness in extremities Medications/Allergies Home Medications ?Medication ?Instructions ?Recorded ?Confirmed ?Last Taken ?Type acetaminophen 500 mg tablet 500 mg PO TID PRN Pain #0 tabs 10/27/19 03/25/25 10/11/24 Rx (Tylenol Extra Strength) ascorbic acid (vitamin C) 1,000 mg 1 g PO QAM 12/13/20 03/25/25 02/04/25 History tablet (Vitamin C) aspirin 81 mg tablet,delayed 81 mg PO DAILY 06/14/21 03/25/25 03/24/25 History release articulating AFO with accommodated #1 ea 12/04/21 03/25/25 10/11/24 Rx orthotic and toe filler to left cam boot #1 ea 04/29/22 03/25/25 10/11/24 Rx 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,channel account manager,cont #1 ea 10/02/22 03/25/25 10/11/24 Rx (Dexcom G7 Process Safety Engineer) pen needle, diabetic 32 gauge x ##100 10/16/22 03/25/25 10/11/24 Rx 5/32 (TechLITE Pen Needle) atorvastatin 80 mg tablet 80 mg PO BEDTIME #90 tabs 03/10/24 03/25/25 02/04/25 Rx blood sugar diagnostic (OneTouch #300 ea 03/10/24 03/25/25 10/11/24 Rx Ultra Test strips) lancets (Accu-Chek Softclix #100 ea 03/10/24 03/25/25 10/11/24 Rx Lancets) diabetic shoes #1 ea 07/13/24 03/25/25 10/11/24 Rx insulin pump cart,auto,BT,G6/7 #15 ea 09/17/24 03/25/25 10/11/24 Rx (Omnipod 5 G6-G7 Pods (Gen 5) subcutaneous cartridge) insulin pump cartridge,auto #1 ea 09/17/24 03/25/25 10/11/24 Rx dose,BT,G6/G7 with controller subcutaneous (Omnipod 5 G6-G7 Intro Kit(Gen 5) subcutaneous cartridge and controller) clopidogrel 75 mg tablet 75 mg PO DAILY 10/25/24 03/25/25 02/04/25 History gabapentin 100 mg capsule 100 mg PO TID 10/25/24 03/25/25 02/04/25 History insulin lispro 100 unit/mL 15 unit SUBCUT TID PRN blood sugar 10/25/24 03/25/25 Unknown History subcutaneous pen (Humalog KwikPen (U-100) Insulin) metoprolol tartrate 25 mg tablet 25 mg PO BID #180 tabs 10/26/24 03/25/25 02/04/25 Rx duloxetine 30 mg capsule,delayed 30 mg PO BID #60 caps 12/28/24 03/25/25 02/04/25 Rx release 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 sensor (Dexcom G7 #9 ea 01/14/25 03/25/25 Unknown Rx Sensor device) gauze bandage 2 1/ X 3 yard #96 ea 02/05/25 03/25/25 Unknown Rx (Kerlix) insulin glargine-yfgn 100 unit/mL 55 unit SUBCUT DAILY 02/05/25 03/25/25 02/04/25 History (3 mL) subcutaneous pen (Semglee (insulin glargine-yfgn) Pen) metformin 1,000 mg tablet 1,000 mg PO BID 02/05/25 03/25/25 Unknown History mupirocin 2 % topical ointment 1 applic topical BID #22 grams 02/05/25 03/25/25 Unknown Rx (Centany) white petrolatum 1 X 8 bandage #200 ea 02/05/25 03/25/25 Unknown Rx (Vaseline Petrolatum Gauze) amlodipine 5 mg tablet 5 mg PO DAILY 60 days #60 tabs 03/29/25 Unknown Rx amoxicillin 875 mg-potassium 1 tab PO BID 7 days #14 tabs 03/29/25 Unknown Rx clavulanate 125 mg tablet calcium 600 mg (as 1 tab PO BID 60 days #120 tabs 03/29/25 Unknown Rx carbonate)-vitamin D3 10 mcg (400 unit) tablet doxycycline monohydrate 100 mg 100 mg PO BID 7 days #14 tabs 03/29/25 Unknown Rx tablet multivitamin with folic acid 400 1 tab PO DAILY 60 days #60 tabs 03/29/25 Unknown Rx mcg tablet (Thera) oxycodone 5 mg tablet 5 - 10 mg (1 - 2 x 5 mg) PO Q4H 03/29/25 Unknown Rx PRN Moderate To Severe Pain 1st 7 days #15 tabs pantoprazole 40 mg tablet,delayed 40 mg PO DAILY 60 days #60 tabs 03/29/25 Unknown Rx release polysaccharide iron complex 150 mg 150 mg PO BIDWM 30 days #30 caps 03/29/25 Unknown Rx iron capsule (Ferrex) tramadol 50 mg tablet 50 mg PO Q4H PRN Mild Pain 7 days 03/29/25 Unknown Rx #15 tabs Allergies Allergy/AdvReac Type Severity Reaction Status Date / Time Sulfa (Sulfonamide Allergy Mild Unknown Verified 04/01/25 14:43 Antibiotics) NSAIDS (Non-Steroidal Allergy Unknown ALGY-Anaphy Verified 04/01/25 14:43 Anti-Inflamma (NSAIDS laxis,Unkno (Non-Steroidal wn Anti-Inflammatory Drug)) oseltamivir (From Tamiflu) Allergy ADR-Nausea Verified 04/01/25 14:43 triethanolamine (From Allergy ALGY-Rash Verified 04/01/25 14:43 Cerumenex) Current Medications Generic Name Dose Route Start Last Admin Trade Name Freq PRN Reason Stop Dose Admin Ascorbic Acid 1,000 mg 04/02/25 05:00 04/02/25 05:12 Ascorbic Acid 500 Mg Tablet PO 1,000 mg QAM BRIANA Administration Aspirin 81 mg 04/02/25 05:00 04/02/25 05:12 Aspirin 81 Mg Ec Tablet PO 81 mg DAILY BRIANA Administration Atorvastatin Calcium 80 mg 04/01/25 21:00 04/01/25 20:40 Atorvastatin 40 Mg Tablet PO 80 mg BEDTIME BRIANA Administration Calcium Carbonate 1 each 04/02/25 05:00 04/02/25 05:11 Calcium Carb-Vit D 600mg/400unit 1 Tablet PO 1 each BID BRIANA Administration Clopidogrel Bisulfate 75 mg 04/02/25 05:00 04/02/25 05:12 Clopidogrel 75 Mg Tablet PO 75 mg DAILY BRIANA Administration Duloxetine HCl 30 mg 04/02/25 05:00 04/02/25 05:11 Duloxetine 30 Mg Capsule PO 30 mg BID BRIANA Administration Gabapentin 100 mg 04/01/25 21:00 04/02/25 05:12 Gabapentin 100 Mg Capsule PO 100 mg TID BRIANA Administration Dextrose 125 mls @ 750 mls/hr 04/01/25 19:28 04/01/25 23:52 D10w IV Infused PRN PRN Infusion Adult Acute Hypoglycemia Nursing Protocol Protocol Vancomycin HCl 1,000 mg/ 250 mls @ 250 mls/hr 04/02/25 08:30 04/02/25 09:20 Sodium Chloride IV 250 mls/hr Q12H BRIANA Administration Meropenem 1,000 mg 04/02/25 00:00 04/02/25 09:19 Meropenem 1,000 Mg Sdv IVP 1,000 mg Q8H BRIANA Administration Protocol Metoprolol Tartrate 25 mg 04/02/25 05:00 04/02/25 05:11 Metoprolol Tartrate 25 Mg Tablet PO 25 mg BID BRIANA Administration Multivitamins Therapeutic 1 tab 04/02/25 05:00 04/02/25 05:11 Multivitamin Therapeutic Tablet PO 1 tab DAILY BRIANA Administration Mupirocin 1 applic 04/02/25 05:00 04/02/25 05:12 Mupirocin Oint 22 Gm TOPICAL 1 applic BID BRIANA Administration Pantoprazole Sodium 40 mg 04/01/25 19:30 04/01/25 20:40 Pantoprazole 40 Mg Sdv IVP 40 mg Q24H BRIANA Administration Polysaccharide Iron Complex 150 mg 04/02/25 08:00 04/02/25 09:20 Iron Polysaccharide Complex 150 Mg Capsule PO 150 mg BIDWM BRIANA Administration PFSH Acute PFSH: Medical History (Updated 04/02/25 @ 00:53 by ANUJA Hudson, [employer]) Psychiatric care Uncontrolled type 2 diabetes mellitus, with long-term current use of insulin Tobacco dependency HTN (hypertension), benign Major depressive disorder Low back pain radiating down leg Essential hypertension Hypotestosteronemia in male Dyslipidemia Surgical History History of amputation of lesser toe of both feet H/O total hip arthroplasty [employer] Accolade II total hip system: The size 58 mm solid back acetabular shell with an F alpha code and an MDM liner size 46 mm inner diameter by F alpha code. An Accolade II size 6 x 127 degree neck angle hip stem, femoral head size 28 mm outer diameter and +0 mm offset inside of an MDM insert size inner diameter 28 mm to match the 46F History of total left hip arthroplasty Hx of cataract extraction History of incision and drainage left foot History of amputation of toe Right second and left second and third History of eye surgery Status post vasectomy Family History Father CAD (coronary artery disease) Diabetes Mother Cancer Chronic kidney disease (CKD) Diabetes Lung disease Grandmother Dementia Stroke Family/Other Suicide Other Hypertension Denies family history of Clotting disorder Anesthesia complication Bleeding disorder Social History Smoking and tobacco/nicotine status: current every day tobacco/nicotine user cigarettes Packs smoked per day: 1 Alcohol intake: current Alcohol intake frequency: holidays/special occasions only Substance/Drug Use: never Vitals/I&O/Wt Last Vital Signs Temp 97.6 F 04/02/25 07:33 Pulse 83 04/02/25 07:33 Resp 16 04/02/25 07:33 BP 151/77 04/02/25 07:33 Pulse Ox 92 04/02/25 07:33 O2 Del Method Room Air 04/02/25 07:33 O2 Flow Rate 0 04/01/25 20:00 04/01/25 04/02/25 04/02/25 22:59 06:59 14:59 Intake Total 1540 / 1540 765 / 2305 Output Total 300 / 300 350 / 650 400 / 400 Balance 1240 / 1240 415 / 1655 -400 / -400 Weight last 48 hrs Weight 183 lb 2 oz Weight 183 lb 2 oz Weight 183 lb 2 oz Weight 183 lb Physical Exam Narrative: Wound is clean dry and intact slight erythema around the rona. No evidence of any drainage. Data 04/02/25 02:48 04/02/25 02:48 Micro: Microbiology 04/01/25 15:36 Blood Culture - Preliminary Blood SPECIMEN COLLECTED 04/01/25 15:35 Blood Culture - Preliminary Blood SPECIMEN COLLECTED A&P Assessment and plan 1. Amputation of left lower extremity below knee: Status post amputation. At this point no reason for reoperation. Follow-up with Dr. Suarez as planned. PDMP PDMP Reviewed: Not Reviewed Coding Level of Care Code Acute Code for Chg Fwd Diagnoses Amputation of left lower extremity below knee S88.112A
--- NOTE | 2025-04-02 10:17 | PC.PHAR ---
Pt is resident at [facility]
--- NOTE | 2025-04-02 13:41 | CTR_ITS ---
PROCEDURE INFORMATION: Exam: CT Left Lower Extremity Without Contrast Exam date and time: 04/02/2025 2:58 PM Age: 64 years old Clinical indication: Pain; Lower leg; Left; Prior Surgery; 3-7 days post-operative; amputation; to rule out any collection, hematoma or infection at surgery TECHNIQUE: Imaging protocol: CT of the left lower extremity without contrast was performed. Radiation optimization: All CT scans at this facility use at least one of these dose optimization techniques: automated exposure control; mA and/or kV adjustment per patient size (includes targeted exams where dose is matched to clinical indication); or iterative reconstruction. COMPARISON: 1. CT angio abd aorta runof [id number] 09/15/2024 2:[address] angio abd aorta runof [id number] 05/16/2022 1:17 PM RADIATION DOSE METRICS: Total DLP (mGy-cm): 434.11 FINDINGS: Bones/joints: Small suprapatellar and intra-articular knee joint effusion is noted. Joint and osseous structures are intact except for the below-knee amputation. Soft tissues: Diffuse edema with fatty reticulation involving the subcutaneous tissues around the distal thigh and amputation stump. Question of a 13 mm fluid collection near the center of the soft tissue flap and adjacent to the popliteal artery, best seen on coronal image 19. No discrete large fluid collection is appreciated within the soft tissues. No abnormal soft tissue air is identified. Surgical skin rona are present at the inferior extent of the amputation stump. There is some irregularity of the skin surface just below the patella. It is unclear if this is soft tissue injury or ulceration. Vasculature: Vascular arterial stent is seen along the area of the left femoral artery. This terminates at the fem-pop junction. CT/CT lower leg LT wo con* [id number] IMPRESSION: 1. Question of a 13 mm fluid collection near the center of the soft tissue flap and adjacent to the popliteal artery, best seen on coronal image 19. This is indeterminate and not well evaluated without IV contrast. If further evaluation necessary, consider ultrasound. 2. Diffuse subcutaneous fatty reticulation compatible with generalized edema. 3. No evidence of gas producing infection.
[2025-04-02] MEDS: piperacillin-tazobactam 3.375 GM in sodium chloride 0.9% (plus) 50 ML IV ×2 (14:17→20:52)
[2025-04-02 15:47] LABS: MRSA PCR OZH (swab) NOT DETECTED (Negative)
[2025-04-02] MEDS: pantoprazole 40 mg SDV IVP (18:38)
--- NOTE | 2025-04-02 20:37 | P.PN_ITS ---
Subjective 2 Subjective: the patient was seen in the morning, doing well Does not complain of any fever, shortness of breath, flulike symptoms or any other infectious source? The wound looks clean a little red however does not have any fluctuant or changing temperature comparison to the normal skin Vitals/I&O/Wt Last Vital Signs Temp 98.1 F 04/02/25 16:44 Pulse 87 04/02/25 16:44 Resp 17 04/02/25 16:44 BP 172/84 04/02/25 16:44 Pulse Ox 94 04/02/25 16:44 O2 Del Method Room Air 04/02/25 16:44 O2 Flow Rate 0 04/01/25 20:00 04/02/25 04/02/25 04/02/25 06:59 14:59 22:59 Intake Total 765 / 2305 1050 / 1050 530 / 1580 Output Total 350 / 650 400 / 400 275 / 675 Balance 415 / 1655 650 / 650 255 / 905 Weight last 48 hrs Weight 83.064 kg Weight 83.064 kg Weight 83.064 kg Weight 83.007 kg Physical Exam 2 Narrative: General: Alert and oriented, lying comfortably without any distress HEENT: Normocephalic, atraumatic, grossly unremarkable exam Cardio: normal rate rhythm, normal S1-S2 without any murmurs, rubs, or gallops and JVD normal Respiratory: normal vascular breathing on auscultation without any wheezes, stridor, rhonchi GI: Abdomen soft, nontender, nondistended, normoactive bowel sounds present all 4 quadrants, Neuro: intact cranial nerves motor and sensory and cerebellar/coordination function without any focal neurological deficit Behavior: Appropriate and cooperative Extremities: Adequate palpable pulses, mild trace edema, below-knee amputation of the left leg, with rona and no fluctuant skin or increased temperature of the skin relative to the normal skin, no oozing from the area, with adequate perfusion on examination, chronic skin changes on the right Lower ext of PAD Data 04/02/25 02:48 04/02/25 02:48 Micro: Microbiology 04/01/25 15:36 Blood Culture - Preliminary Blood NEGATIVE TO DATE 04/01/25 15:35 Blood Culture - Preliminary Blood NEGATIVE TO DATE A&P Assessment and plan 1. Amputation of left lower extremity below knee: BKA 03/27/2025 Tibia-fibula x-ray; postoperative changes Having pain, but no oozing or discharge, area of surgery looks clean, CT scan of the left BKA showed mild collection, orthopedic surgeon on board Pain management Wound care 2. Essential hypertension: 160s?180s systolic Patient was only on metoprolol, resumed home medication 5 mg of amlodipine Continue monitoring blood pressure and titrate antihypertensives accordingly 3. Fever and chills: Patient presented with subjective fevers and confusion with mild low-grade fever and increased leukocytosis in comparison to the day of discharge from around 11,000-20,000 Follow the cultures Continue broad-spectrum antibiotics with Zosyn and bank MRSA not detected Adequate hydration to continue 4. Anemia: Stable hemoglobin likely status post recent surgery Continue to monitor PCP follow-up at the time of discharge 5. DM2 (diabetes mellitus, type 2): Patient having hypoglycemia with HbA1c of 10.6% recently Could be an element of infection leading to hypoglycemia Discontinue insulin sliding scale Educate and emphasized on adequate oral intake Dextrose 5% with Ringer lactate hydration to continue Continue monitoring fingersticks PDMP PDMP Reviewed: Not Reviewed Attestations 2 Medical Necessity Statement*: Patient will stay more than 2 midnights for the management of his sepsis requiring IV antibiotics and further monitoring as inpatient Time Spent in Patient Care: 16 - 35 minutes (>than 50% of time sp ent in counselling and/or direct pt care on unit) . Other Attestations: Patient condition has been discussed at length with the patient/family, I have independently reviewed the chart labs imaging/diagnostics/EKG. the goals of care and code status with the patient/family/NOK/legal technical account representative, and documented accordingly. I have reconciled the medications after confirmation/comorbidities/current clinical condition. The management has been done according to the current clinical condition with respect to patient goals of care and based on recommendations/guidelines. The patient/family has been informed about the current condition and further plan of care. Agreed with the plan of care and understood without any language barrier. Every effort was made to ensure accuracy of academic hospitalist. Any obvious errors or omissions should be clarified with the author of the document. Coding Level of Care Code 70514 Diagnoses Amputation of left lower extremity below knee S88.112A Encounter type: initial encounter Essential hypertension I10 Fever and chills R50.9 Anemia D64.9 DM2 (diabetes mellitus, type 2) E11.9
[2025-04-03] VITALS (9 sets, daily range): BP systolic 155–188; BP diastolic 73–94; PULSE 69–88; RESP 16–20; TEMP 36.5–36.9; O2SAT 90–94; BMI 26.9
[2025-04-03 04:53] LABS: Hematocrit 27.3 % (37-53); Hemoglobin 8.90 g/dL (11.27-16.99); Mean Corpuscular HGB Conc 32.6 g/dL (30-55); Mean Corpuscular Hemoglobin 27.2 pg (27-33); Mean Corpuscular Volume 83.5 fl (82-101); Nucleated Red Blood Cells % 0 %; Platelet Count 419 10^3/cmm (157-399); Red Blood Count 3.27 10^6/uL (3.85-5.65); White Blood Count 16.47 10^3/uL (3.29-11.43)
[2025-04-03 05:18] LABS: Alanine Aminotransferase 10 U/L (0-41); Albumin Level 2.1 g/dL (3.5-5.2); Alkaline Phosphatase 154 U/L (40-130); Anion Gap 14.7 (5-19); Aspartate Amino Transferase 19 U/L (0-40); Blood Urea Nitrogen 10 mg/dL (8-23); Calcium 7.7 mg/dL (8.5-10.5); Carbon Dioxide 23 mmol/L (22-29); Chloride 101 mmol/L (98-107); Globulin 3.9 g/dL (1.3-4.6); Glucose 111 mg/dL (65-115); Osmolality Calculated 280 mOsm/kg (285-295); Potassium 3.7 mmol/L (3.5-5.1); Sodium 135 mmol/L (136-145); Total Protein 6.0 g/dL (6.6-8.7)
[2025-04-03] MEDS: piperacillin-tazobactam 3.375 GM in sodium chloride 0.9% (plus) 50 ML IV ×3 (05:21→20:54)
[2025-04-03] MEDS: multivitamin therapeutic Tablet 1 TAB PO (05:26)
[2025-04-03] MEDS: calcium carb-vit d 600mg/400unit 1 Tablet 1 EACH PO ×2 (05:26→16:00)
[2025-04-03] MEDS: mupirocin oint 22 gm 1 APPLIC TOPICAL ×2 (06:06→16:02)
--- NOTE | 2025-04-03 14:59 | PM.PN ---
Subjective Subjective: the patient was seen in the morning, doing well, and was further had some questions regarding his SNF placement and informed that currently hospice case manager is on board and will further update on Friday Did not complain of any chills the last 24 hours did not report any fever, vitals reviewed. Blood pressure seems to be under good on the higher side. Otherwise patient asymptomatic Vitals/I&O/Wt Last Vital Signs Temp 98.2 F 04/03/25 11:25 Pulse 79 04/03/25 11:25 Resp 16 04/03/25 11:25 BP 175/81 04/03/25 11:25 Pulse Ox 90 04/03/25 11:25 O2 Del Method Nasal Cannula 04/03/25 11:25 O2 Flow Rate 0 04/01/25 20:00 04/02/25 04/03/25 04/03/25 22:59 06:59 14:59 Intake Total 780 / 1830 630 / 2460 2086.25 / 2086.25 Output Total 575 / 975 200 / 200 Balance 205 / 855 630 / 1485 1886.25 / 1886.25 Weight last 48 hrs Weight 82.735 kg Weight 83.064 kg Weight 83.064 kg Weight 83.064 kg Physical Exam Narrative: General: Alert and oriented, lying comfortably without any distress HEENT: Normocephalic, atraumatic, grossly unremarkable exam Cardio: normal rate rhythm, normal S1-S2 without any murmurs, rubs, or gallops and JVD normal Respiratory: normal vascular breathing on auscultation without any wheezes, stridor, rhonchi GI: Abdomen soft, nontender, nondistended, normoactive bowel sounds present all 4 quadrants, Neuro: intact cranial nerves motor and sensory and cerebellar/coordination function without any focal neurological deficit Behavior: Appropriate and cooperative Extremities: Adequate palpable pulses, mild trace edema, below-knee amputation of the left leg, with rona and no fluctuant skin or increased temperature of the skin relative to the normal skin, no oozing from the area, with adequate perfusion on examination, chronic skin changes on the right Lower ext of PAD Data 04/03/25 04:00 04/03/25 04:00 Micro: Microbiology 04/02/25 14:01 Urine Culture - Preliminary Urine,Voided 04/01/25 15:36 Blood Culture - Preliminary Blood NEGATIVE TO DATE 04/01/25 15:35 Blood Culture - Preliminary Blood NEGATIVE TO DATE A&P Assessment and plan 1. Amputation of left lower extremity below knee: BKA 03/27/2025 Tibia-fibula x-ray; postoperative changes Having pain, but no oozing or discharge, area of surgery looks clean, CT scan of the left BKA showed mild collection of around 13 mm, orthopedic surgeon on board no surgical intervention Pain management Wound care 2. Essential hypertension: 160s?180s systolic Patient was only on metoprolol, increase the home dose of amlodipine to 10 mg Continue to monitor and tailor antihypertensive accordingly 3. Fever and chills: Patient presented with subjective fevers and confusion with mild low-grade fever and increased leukocytosis in comparison to the day of discharge from around 11,000-20,000 Follow the cultures Continue broad-spectrum antibiotics with Zosyn as of now, Discontinue vancomycin MRSA not detected Adequate hydration to continue 4. Anemia: Stable hemoglobin likely status post recent surgery Continue to monitor PCP follow-up at the time of discharge 5. DM2 (diabetes mellitus, type 2): Patient having hypoglycemia with HbA1c of 10.6% recently Could be an element of infection leading to hypoglycemia Discontinue insulin sliding scale, blood glucose readings acceptable Educate and emphasized on adequate oral intake Dextrose 5% with Ringer lactate hydration to continue Continue monitoring fingersticks PDMP PDMP Reviewed: Not Reviewed Attestations Medical Necessity Statement*: Patient will stay more than 2 midnights for the management of his sepsis requiring IV antibiotics and further monitoring as inpatient and later on SNF arrangement/placement Time Spent in Patient Care: 16 - 35 minutes (>than 50% of time spent in counselling and/or direct pt care on unit). Other Attestations: Patient condition has been discussed at length with the patient/family, I have independently reviewed the chart labs imaging/diagnostics/EKG. the goals of care and code status with the patient/family/NOK/legal development representative, and documented accordingly. I have reconciled the medications after confirmation/comorbidities/current clinical condition. The management has been done according to the current clinical condition with respect to patient goals of care and based on recommendations/guidelines. The patient/family has been informed about the current condition and further plan of care. Agreed with the plan of care and understood without any language barrier. Every effort was made to ensure accuracy of color corrector. Any obvious errors or omissions should be clarified with the author of the document. Coding Level of Care Code 10177 Diagnoses Amputation of left lower extremity below knee S88.112A Encounter type: initial encounter Essential hypertension I10 Fever and chills R50.9 Anemia D64.9 DM2 (diabetes mellitus, type 2) E11.9
[2025-04-03] MEDS: pantoprazole 40 mg SDV IVP (20:52)
[2025-04-04] VITALS (7 sets, daily range): BP systolic 128–225; BP diastolic 61–94; PULSE 69–82; RESP 16–18; TEMP 36.4–37.3; O2SAT 91–97
[2025-04-04 04:59] LABS: Hematocrit 25.7 % (37-53); Hemoglobin 8.50 g/dL (11.27-16.99); Mean Corpuscular HGB Conc 33.1 g/dL (30-55); Mean Corpuscular Hemoglobin 27.9 pg (27-33); Mean Corpuscular Volume 84.3 fl (82-101); Nucleated Red Blood Cells % 0 %; Platelet Count 411 10^3/cmm (157-399); Red Blood Count 3.05 10^6/uL (3.85-5.65); White Blood Count 18.31 10^3/uL (3.29-11.43)
[2025-04-04 05:19] LABS: Alanine Aminotransferase 8 U/L (0-41); Albumin Level 2.1 g/dL (3.5-5.2); Alkaline Phosphatase 136 U/L (40-130); Anion Gap 13.9 (5-19); Aspartate Amino Transferase 13 U/L (0-40); Blood Urea Nitrogen 14 mg/dL (8-23); Calcium 7.6 mg/dL (8.5-10.5); Carbon Dioxide 23 mmol/L (22-29); Chloride 99 mmol/L (98-107); Globulin 3.6 g/dL (1.3-4.6); Glucose 294 mg/dL (65-115); Osmolality Calculated 285 mOsm/kg (285-295); Potassium 3.9 mmol/L (3.5-5.1); Sodium 132 mmol/L (136-145); Total Protein 5.7 g/dL (6.6-8.7)
[2025-04-04] MEDS: piperacillin-tazobactam 3.375 GM in sodium chloride 0.9% (plus) 50 ML IV ×3 (05:34→21:23)
[2025-04-04] MEDS: calcium carb-vit d 600mg/400unit 1 Tablet 1 EACH PO ×2 (05:34→17:07)
[2025-04-04] MEDS: multivitamin therapeutic Tablet 1 TAB PO (05:34)
[2025-04-04] MEDS: mupirocin oint 22 gm 1 APPLIC TOPICAL ×2 (07:00→17:07)
--- NOTE | 2025-04-04 13:44 | PC.SOCIAL ---
IMM Updated Updated pt on IMM. No questions voiced. Provided pt a copy. Initialed, dated, & timed a copy & placed in chart.
--- NOTE | 2025-04-04 17:05 | P.PN_ITS ---
Subjective 2 Subjective: the patient was seen in the morning, doing well, He is improving in terms of his symptoms and feeling much alert and awake However still having marked leukocytosis, surgery site looks clean Consulted ID for further expert opinion and management Vitals/I&O/Wt Last Vital Signs Temp 98.2 F 04/04/25 11:27 Pulse 78 04/04/25 11:27 Resp 16 04/04/25 11:27 BP 155/72 04/04/25 11:27 Pulse Ox 94 04/04/25 11:27 O2 Del Method Room Air 04/04/25 11:27 O2 Flow Rate 0 04/01/25 20:00 04/04/25 04/04/25 04/04/25 06:59 14:59 22:59 Intake Total 50 / 3146.25 770 / 770 Output Total 250 / 250 Balance 50 / 2746.25 520 / 520 Weight last 48 hrs Weight 83.642 kg Weight 82.735 kg Physical Exam 2 Narrative: General: Alert and oriented, lying comfortably without any distress HEENT: Normocephalic, atraumatic, grossly unremarkable exam Cardio: normal rate rhythm, normal S1-S2 without any murmurs, rubs, or gallops and JVD normal Respiratory: normal vascular breathing on auscultation without any wheezes, stridor, rhonchi GI: Abdomen soft, nontender, nondistended, normoactive bowel sounds present all 4 quadrants, Neuro: intact cranial nerves motor and sensory and cerebellar/coordination function without any focal neurological deficit Behavior: Appropriate and cooperative Extremities: Adequate palpable pulses, mild trace edema, below-knee amputation of the left leg, with rona and no fluctuant skin or increased temperature of the skin relative to the normal skin, no oozing from the area, with adequate perfusion on examination, mild redness at the surgery site but does not seem to be sign of infection, chronic skin changes on the right Lower ext of PAD Data 04/04/25 04:52 04/04/25 04:52 Micro: Microbiology 04/02/25 14:01 Urine Culture - Final Urine,Voided A&P Assessment and plan 1. Leukocytosis: Patient presented with subjective fevers and confusion with mild low-grade fever and increased leukocytosis in comparison to the day of discharge from around 11,000-20,000 Cultures till date negative Continue broad-spectrum antibiotics with Zosyn as of now, Discontinue vancomycin as MRSA not detected Still having marked leukocytosis however clinically patient is stable and no complaints ID consulted for further expert opinion and management Adequate hydration to continue 2. Amputation of left lower extremity below knee: BKA 03/27/2025 Tibia-fibula x-ray; postoperative changes Having pain, but no oozing or discharge, area of surgery looks clean, CT scan of the left BKA showed mild collection of around 13 mm, orthopedic surgeon on board no surgical intervention Pain management Wound care 3. Essential hypertension: Continue metoprolol 25 twice daily and amlodipine 10 mg daily Continue to monitor and tailor antihypertensive accordingly 4. Anemia: Keep hemoglobin above 7 Slowly trending down hemoglobin, however no significant source of bleeding Anemia workup and to follow Monitor CBC 5. DM2 (diabetes mellitus, type 2): Initially, patient having hypoglycemia with HbA1c of 10.6% recently Could be an element of infection leading to hypoglycemia Currently getting better and more on the hyperglycemic side Started on insulin glargine 5 units and insulin sliding scale Continue to monitor and tailor glucose control accordingly PDMP PDMP Reviewed: Not Reviewed Attestations 2 Medical Necessity Statement*: Patient will stay more than 2 midnights in the hospital for the management of marked leukocytosis with possible underlying sepsis that required IV antibiotics and ID recommendations and the patient is s/p left BKA recently. Time Spent in Patient Care: 16 - 35 minutes (>than 50% of time sp ent in counselling and/or direct pt care on unit) . Other Attestations: Patient condition has been discussed at length with the patient/family, I have independently reviewed the chart labs imaging/diagnostics/EKG. the goals of care and code status with the patient/family/NOK/legal accounts receivable representative, and documented accordingly. I have reconciled the medications after confirmation/comorbidities/current clinical condition. The management has been done according to the current clinical condition with respect to patient goals of care and based on recommendations/guidelines. The patient/family has been informed about the current condition and further plan of care. Agreed with the plan of care and understood without any language barrier. Every effort was made to ensure accuracy of billing department supervisor. Any obvious errors or omissions should be clarified with the author of the document. Coding Level of Care Code 98371 Diagnoses Leukocytosis D72.829 Amputation of left lower extremity below knee S88.112A Encounter type: initial encounter Essential hypertension I10 Anemia D64.9 DM2 (diabetes mellitus, type 2) E11.9
[2025-04-04 18:04] LABS: Ferritin 91 ng/mL (30-400); Iron 21 ug/dL (59-158); Total Iron Binding Capacity 165 mcg/dl; Unsaturated Iron Binding 144 ug/dL (112-347)
[2025-04-04 18:13] LABS: Vitamin B12 401 pg/mL (232-1245)
--- NOTE | 2025-04-04 18:55 | PM.CONSULT ---
Providers/Reason For Consult Consulting Physician/Specialty*: Belén Champion MD/ Infectious Disease Reason for Consult*: osteomyelitis s/p BKA Requesting Physician: Suzie Hernandez MD Attending Physician: Suzie Hernandez MD Primary Care Provider: Juany Guajardo DO History of Present Illness History of Present Illness Marquis Ballard is a 64 year old male with h/o uncontrolled DM, PAD s/p B/L LE interventions , h/o recurrent lower extremity ulcers,h/o previous left toe 2 to 5 amputations and partial metatarsalectomies, cared for at the wound care clinic, h/o right fifth phalanx tip osteomyelitis treated with oral Levofloxacin (Enterobacter cloace on cx) in October 2024, h/o PAD s/p intervention. Recently admitted to the hospital between 03/25-03/30 for worsening ulceration over the lateral foot and gangrenous changes over the left calcaneum. X ray foot showed erosive changes consistent with osteomyelitis involving the base of the left fourth metatarsal s/p BKA on 03/27. Prior to the procdure he underwent angiogram with findings of occluded distal SFA with poor collaterals, s/p successful revascularization of SFA with DCB and 1 stent placement on 03/26. He received iv meropenem and vancomycin prior to the BKA and was subsequently discharged on oral abx Augmentin and Doxycycline to SNF. CX results from the left foot ulcer showed MSSA (03/25) Blood cx + 1/4 for staph epidermidis on 03/25, favored contaminant. He was noted to have leukocytosis at 15K, per prior chart review, patient has chronic long standing chronic leukocytosis with baseline WBC count between 11-13K since at least 2022. He returned for admission on 04/01 from SNF due to reports of fever, chills and worsened leg pain. He was admitted as leukocytosis had worsened at 20,000. He was started on iv zosyn and vancomycin with vancomycin eventually discontinued. CT leg showed Question of a 13 mm fluid collection near the center of the soft tissue flap and adjacent to the popliteal artery. ID consulted for abx recommendations. Review of Systems General: Reports: 10 or more systems reviewed and unremarkable except in HPI and below Const: Denies: fever(s), chills or body aches Eyes: Denies: change in vision, blurry vision or photophobia ENMT: Reports: hoarseness; Denies: throat pain, enlarged tonsils, odynophagia or nasal congestion Card: Denies: chest pain, palpitations, irregular heart rhythm, edema, swelling of feet/ankles, lightheadedness, pre-syncope, dyspnea on exertion or orthopnea Resp: Denies: dyspnea, productive cough, non-productive cough, wheezing, stridor, pain on inspiration, change in phlegm color, hemoptysis or chest congestion GI: Denies: abdominal pain, nausea, vomiting, hematemesis, coffee ground emesis, dysphagia, heartburn, diarrhea, constipation, GI cramping, change in stool character, hematochezia or melena : Denies: flank pain, dysuria, urinary frequency, urinary urgency, urinary hesitancy or hematuria Musc: Denies: neck pain, back pain, extremity pain, joint swelling, joint warmth or deformity Neuro: Denies: headache(s), numbness in extremities, weakness in extremities, sensory changes, difficulty walking, frequent falls, dizziness, vertigo, behavioral changes, Slurred speech present or seizure-like activity Psych: Denies: anxiety, depression, suicidal ideation or homicidal ideation Endo: Denies: polyuria, polydipsia, tired all the time, cold intolerance or hot flashes Ernesto/Lymph: Denies: easy bruising or easy bleeding Medications/Allergies Home Medications ?Medication ?Instructions ?Recorded ?Confirmed ?Last Taken ?Type aspirin 81 mg tablet,delayed 81 mg PO DAILY 06/14/21 04/02/25 04/01/25 History release articulating AFO with accommodated #1 ea 12/04/21 04/02/25 10/11/24 Rx orthotic and toe filler to left cam boot #1 ea 04/29/22 04/02/25 10/11/24 Rx 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,coke oven mason,cont #1 ea 10/02/22 04/02/25 10/11/24 Rx (Dexcom G7 Documentation Clerk) pen needle, diabetic 32 gauge x ##100 10/16/22 04/02/25 10/11/24 Rx (TechLITE Pen Needle) atorvastatin 80 mg tablet 80 mg PO BEDTIME #90 tabs 03/10/24 04/02/25 03/31/25 Rx blood sugar diagnostic (OneTouch #300 ea 03/10/24 04/02/25 10/11/24 Rx Ultra Test strips) lancets (Accu-Chek Softclix #100 ea 03/10/24 04/02/25 10/11/24 Rx Lancets) diabetic shoes #1 ea 07/13/24 04/02/25 10/11/24 Rx insulin pump cart,auto,BT,G6/7 #15 ea 09/17/24 04/02/25 10/11/24 Rx (Omnipod 5 G6-G7 Pods (Gen 5) subcutaneous cartridge) insulin pump cartridge,auto #1 ea 09/17/24 04/02/25 10/11/24 Rx dose,BT,G6/G7 with controller subcutaneous (Omnipod 5 G6-G7 Intro Kit(Gen 5) subcutaneous cartridge and controller) clopidogrel 75 mg tablet 75 mg PO DAILY 10/25/24 04/02/25 04/02/25 History gabapentin 100 mg capsule 100 mg PO TID 10/25/24 04/02/25 04/01/25 History insulin lispro 100 unit/mL 15 unit SUBCUT TID PRN blood sugar 10/25/24 04/02/25 Unknown History subcutaneous pen (Humalog KwikPen (U-100) Insulin) metoprolol tartrate 25 mg tablet 25 mg PO BID #180 tabs 10/26/24 04/02/25 04/01/25 Rx duloxetine 30 mg capsule,delayed 30 mg PO BID #60 caps 12/28/24 04/02/25 04/01/25 Rx release 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 sensor (Dexcom G7 #9 ea 01/14/25 04/02/25 Unknown Rx Sensor device) gauze bandage 2 1/4 X 3 yard #96 ea 02/05/25 04/02/25 Unknown Rx (Kerlix) insulin glargine-yfgn 100 unit/mL 55 unit SUBCUT DAILY 02/05/25 04/02/25 04/01/25 History (3 mL) subcutaneous pen (Semglee (insulin glargine-yfgn) Pen) metformin 1,000 mg tablet 1,000 mg PO BID 02/05/25 04/02/25 04/01/25 History mupirocin 2 % topical ointment 1 applic topical BID #22 grams 02/05/25 04/02/25 04/01/25 Rx (Centany) white petrolatum 1 X 8 bandage #200 ea 02/05/25 04/02/25 Unknown Rx (Vaseline Petrolatum Gauze) amlodipine 5 mg tablet 5 mg PO DAILY 60 days #60 tabs 03/29/25 04/02/25 04/01/25 Rx amoxicillin 875 mg-potassium 1 tab PO BID 7 days #14 tabs 03/29/25 04/02/25 04/01/25 Rx clavulanate 125 mg tablet calcium 600 mg (as 1 tab PO BID 60 days #120 tabs 03/29/25 04/02/25 04/01/25 Rx carbonate)-vitamin D3 10 mcg (400 unit) tablet doxycycline monohydrate 100 mg 100 mg PO BID 7 days #14 tabs 03/29/25 04/02/25 04/01/25 Rx tablet multivitamin with folic acid 400 1 tab PO DAILY 60 days #60 tabs 03/29/25 04/02/25 04/01/25 Rx mcg tablet (Thera) oxycodone 5 mg tablet 5 - 10 mg (1 - 2 x 5 mg) PO Q4H 03/29/25 04/02/25 04/01/25 Rx PRN Moderate To Severe Pain 1st 7 days #15 tabs polysaccharide iron complex 150 mg 150 mg PO BIDWM 30 days #30 caps 03/29/25 04/02/25 04/01/25 Rx iron capsule (Ferrex) tramadol 50 mg tablet 50 mg PO Q4H PRN Mild Pain 7 days 03/29/25 04/02/25 03/31/25 Rx #15 tabs acetaminophen 325 mg tablet 650 mg PO Q6H PRN pain/increased 04/02/25 04/02/25 Unknown History temp bisacodyl 10 mg rectal suppository 10 mg OK DAILY PRN Constipation 04/02/25 04/02/25 Unknown History bisacodyl 5 mg tablet 10 mg PO DAILY PRN Constipation 04/02/25 04/02/25 Unknown History magnesium hydroxide 400 mg/5 mL 30 ml PO .Q72H PRN Constipation 04/02/25 04/02/25 Unknown History oral suspension (Milk of Magnesia) omeprazole 20 mg capsule,delayed 20 mg PO DAILY 1204/02/25 04/01/25 History release sodium phosphates 19 gram-7 118 ml OK DAILY PRN Constipation 04/02/25 04/02/25 Unknown History gram/118 mL enema (Fleet Enema) Allergies Allergy/AdvReac Type Severity Reaction Status Date / Time Sulfa (Sulfonamide Allergy Mild Unknown Verified 04/01/25 14:43 Antibiotics) NSAIDS (Non-Steroidal Allergy Unknown ALGY-Anaphy Verified 04/01/25 14:43 Anti-Inflamma (NSAIDS laxis,Unkno (Non-Steroidal wn Anti-Inflammatory Drug)) oseltamivir (From Tamiflu) Allergy ADR-Nausea Verified 04/01/25 14:43 triethanolamine (From Allergy ALGY-Rash Verified 04/01/25 14:43 Cerumenex) Current Medications Generic Name Dose Route Start Last Admin Trade Name Freq PRN Reason Stop Dose Admin Amlodipine Besylate 10 mg 04/04/25 05:00 04/04/25 05:34 Amlodipine 10 Mg Tablet PO 10 mg DAILY BRIANA Administration Ascorbic Acid 1,000 mg 04/02/25 05:00 04/04/25 07:00 Ascorbic Acid 500 Mg Tablet PO 1,000 mg QAM BRIANA Administration Aspirin 81 mg 04/02/25 05:00 04/04/25 05:34 Aspirin 81 Mg Ec Tablet PO 81 mg DAILY BRIANA Administration Atorvastatin Calcium 80 mg 04/01/25 21:00 04/03/25 20:53 Atorvastatin 40 Mg Tablet PO 80 mg BEDTIME BRIANA Administration Calcium Carbonate 1 each 04/02/25 05:00 04/04/25 17:07 Calcium Carb-Vit D 600mg/400unit 1 Tablet PO 1 each BID BRIANA Administration Clopidogrel Bisulfate 75 mg 04/02/25 05:00 04/04/25 05:34 Clopidogrel 75 Mg Tablet PO 75 mg DAILY BRIANA Administration Duloxetine HCl 30 mg 04/02/25 05:00 04/04/25 17:07 Duloxetine 30 Mg Capsule PO 30 mg BID BRIANA Administration Gabapentin 100 mg 04/01/25 21:00 04/04/25 14:23 Gabapentin 100 Mg Capsule PO 100 mg TID BRIANA Administration Dextrose 125 mls @ 750 mls/hr 04/01/25 19:28 04/01/25 23:52 D10w IV Infused PRN PRN Infusion Adult Acute Hypoglycemia Nursing Protocol Protocol Piperacillin Sod/Tazobactam 50 mls @ 12.5 mls/hr 04/02/25 13:45 04/04/25 18:47 Sod 3.375 gm/ Sodium Chloride IV Infused Q8H BRIANA Infusion Protocol Dextrose/Lactated Ringer's 1,000 mls @ 75 mls/hr 04/02/25 22:45 04/03/25 13:08 Dextrose 5%-Lactated Ringers IV 0 mls/hr On Hold: 04/03/25 16:50 .[id number] BRIANA Infusion Lactated Ringer's 1,000 mls @ 75 mls/hr 04/04/25 08:45 04/04/25 14:28 Lactated Ringers IV 0 mls/hr .[id number] BRIANA Infusion Insulin Human Lispro 0 unit 04/03/25 18:00 04/04/25 17:06 Insulin Lispro 100 Unit/1 Ml SUBCUT 4 unit WM&BEDTIME BRIANA Administration Protocol Metoprolol Tartrate 25 mg 04/02/25 05:00 04/04/25 17:06 Metoprolol Tartrate 25 Mg Tablet PO 25 mg BID BRIANA Administration Multivitamins Therapeutic 1 tab 04/02/25 05:00 04/04/25 05:34 Multivitamin Therapeutic Tablet PO 1 tab DAILY BRIANA Administration Mupirocin 1 applic 04/02/25 05:00 04/04/25 17:07 Mupirocin Oint 22 Gm TOPICAL 1 applic BID BRIANA Administration Polysaccharide Iron Complex 150 mg 04/02/25 08:00 04/04/25 17:07 Iron Polysaccharide Complex 150 Mg Capsule PO 150 mg BIDWM BRIANA Administration Tramadol HCl 50 mg 04/01/25 19:46 04/04/25 17:07 Tramadol 50 Mg Tablet PO 50 mg Q4H PRN Administration MILD PAIN PFSH Acute PFSH: Medical History Psychiatric care Uncontrolled type 2 diabetes mellitus, with long-term current use of insulin Tobacco dependency HTN (hypertension), benign Major depressive disorder Low back pain radiating down leg Essential hypertension Hypotestosteronemia in male Dyslipidemia Surgical History History of amputation of lesser toe of both feet H/O total hip arthroplasty [place] Accolade II total hip system: The size 58 mm solid back acetabular shell with an F alpha code and an MDM liner size 46 mm inner diameter by F alpha code. An Accolade II size 6 x 127 degree neck angle hip stem, femoral head size 28 mm outer diameter and +0 mm offset inside of an MDM insert size inner diameter 28 mm to match the 46F History of total left hip arthroplasty Hx of cataract extraction History of incision and drainage left foot History of amputation of toe Right second and left second and third History of eye surgery Status post vasectomy Family History Father CAD (coronary artery disease) Diabetes Mother Cancer Chronic kidney disease (CKD) Diabetes Lung disease Grandmother Dementia Stroke Family/Other Suicide Other Hypertension Denies family history of Clotting disorder Anesthesia complication Bleeding disorder Social History Smoking and tobacco/nicotine status: current every day tobacco/nicotine user cigarettes Packs smoked per day: 1 Alcohol intake: current Alcohol intake frequency: holidays/special occasions only Substance/Drug Use: never Vitals/I&O/Wt Last Vital Signs Temp 98.4 F 04/04/25 16:00 Pulse 79 04/04/25 16:00 Resp 17 04/04/25 16:00 BP 148/79 04/04/25 16:00 Pulse Ox 94 04/04/25 16:00 O2 Del Method Room Air 04/04/25 16:00 O2 Flow Rate 0 04/01/25 20:00 04/04/25 04/04/25 04/04/25 06:59 14:59 22:59 Intake Total 50 / 3146.25 771.25 / 771.25 1030 / 1801.25 Output Total 250 / 250 750 / 1000 Balance 50 / 2746.25 521.25 / 521.25 280 / 801.25 Weight last 48 hrs Weight 83.642 kg Weight 82.735 kg Physical Exam Narrative: Assessed via telehealth no acute distress laying in bed comfotably no focal deficits one xam grossly Ext: Lower extremity s/p BKA left side with surgical rona in place. Mild erythema without any gross cellulitis Data 04/06/25 03:24 04/06/25 03:24 Micro: Microbiology 04/02/25 14:01 Urine Culture - Final Urine,Voided Other data: Radiology Impressions Tibia/Fibula X-Ray 04/01/25 14:42 IMPRESSION: Postoperative changes. Lower Extremity CT 04/02/25 13:41 IMPRESSION: 1. Question of a 13 mm fluid collection near the center of the soft tissue flap and adjacent to the popliteal artery, best seen on coronal image 19. This is indeterminate and not well evaluated without IV contrast. If further evaluation necessary, consider ultrasound. 2. Diffuse subcutaneous fatty reticulation compatible with generalized edema. 3. No evidence of gas producing infection. Laboratory Results WBC 18.31 10^3/uL (3.29-11.43) H 04/04/25 04:52 RBC 3.05 10^6/uL (3.85-5.65) L 04/04/25 04:52 Hgb 8.50 g/dL (11.27-16.99) L 04/04/25 04:52 Hct 25.7 % (37-53) L 04/04/25 04:52 MCV 84.3 fl (82-101) 04/04/25 04:52 MCH 27.9 pg (27-33) 04/04/25 04:52 MCHC 33.1 g/dL (30-55) 04/04/25 04:52 RDW 12.7 % (12.1-15.1) 04/04/25 04:52 Plt Count 411 10^3/cmm (157-399) H 04/04/25 04:52 MPV 9.5 fL (7.4-10.4) 04/04/25 04:52 Neut % (Auto) 73.2 % 04/04/25 04:52 Lymph % (Auto) 11.9 % 04/04/25 04:52 Blount % (Auto) 10.5 % 04/04/25 04:52 Eos % (Auto) 1.9 % 04/04/25 04:52 Baso % (Auto) 0.4 % 04/04/25 04:52 Neut # (Auto) 13.40 10^3/uL (1.8-7.7) H 04/04/25 04:52 Lymph # (Auto) 2.2 10^3/uL (0.8-4.8) 04/04/25 04:52 Blount # (Auto) 1.9 10^3/uL (0.2-0.9) H 04/04/25 04:52 Eos # (Auto) 0.4 10^3/uL (0.0-0.8) 04/04/25 04:52 Baso # (Auto) 0.1 10^3/uL (0.0-0.1) 04/04/25 04:52 Nucleated RBC % (auto) 0 % 04/04/25 04:52 Nucleated RBCs # 0.0 /100WBC 04/04/25 04:52 ESR 28 mm/hr (0-10) H 04/01/25 15:35 Sodium 132 mmol/L (136-145) L 04/04/25 04:52 Potassium 3.9 mmol/L (3.5-5.1) 04/04/25 04:52 Chloride 99 mmol/L (98-107) 04/04/25 04:52 Carbon Dioxide 23 mmol/L (22-29) 04/04/25 04:52 Anion Gap 13.9 (5-19) 04/04/25 04:52 BUN 14 mg/dL (8-23) 04/04/25 04:52 Creatinine 1.3 mg/dL (0.7-1.2) H 04/04/25 04:52 GFR Calculation 55.4 mL/min (90-130) L 04/04/25 04:52 Glucose 294 mg/dL (65-115) H 04/04/25 04:52 POC Glucose 198 mg/dL (70-110) H 04/04/25 21:23 Estimat Average Glucose 258 04/01/25 15:35 Hemoglobin A1c 10.6 % (4.0-6.0) H 04/01/25 15:35 Calculated Osmolality 285 mOsm/kg (285-295) 04/04/25 04:52 Lactic Acid 1.4 mmol/L (0.5-2.2) 04/01/25 15:35 Calcium 7.6 mg/dL (8.5-10.5) L 04/04/25 04:52 Phosphorus 2.6 mg/dL (2.5-4.5) 04/02/25 02:48 Magnesium 1.3 mg/dL (1.7-2.3) L 04/02/25 02:48 Iron 21 ug/dL (59-158) L 04/04/25 17:24 TIBC 165 mcg/dl 04/04/25 17:24 % Saturation 12.7 % (20-50) L 04/04/25 17:24 Unsat Iron Binding 144 ug/dL (112-347) 04/04/25 17:24 Ferritin 91 ng/mL (30-400) 04/04/25 17:24 Total Bilirubin 0.2 mg/dL (0.15-1.2) 04/04/25 04:52 AST 13 U/L (0-40) 04/04/25 04:52 ALT 8 U/L (0-41) 04/04/25 04:52 Alkaline Phosphatase 136 U/L (40-130) H 04/04/25 04:52 C-Reactive Protein 116.7 mg/L (0.0-4.9) H 04/01/25 15:35 Total Protein 5.7 g/dL (6.6-8.7) L 04/04/25 04:52 Albumin 2.1 g/dL (3.5-5.2) L 04/04/25 04:52 Globulin 3.6 g/dL (1.3-4.6) 04/04/25 04:52 Vitamin B12 401 pg/mL (232-1245) 04/04/25 17:24 Folate 9.9 ng/mL (4.5-32.2) 04/04/25 17:24 Nasal MRSA (PCR) Not detected (Negative) 04/02/25 14:27 A&P Assessment and plan 1. Chronic osteomyelitis of left foot: s/p BKA 2. PAD (peripheral artery disease): 3. DM2 (diabetes mellitus, type 2): 4. Leukocytosis: Plan: 64 M with uncontrolled DM, multiple diabteic foot ulcers in the past, left foot chronic osteomyelitis s/p BKA 03/27, severe PAD s/p revascularization 03/26, chronic leukocytosis admitted 2 days post discharge due to reported fever, chills and concern for stump infection. CT leg with noted collection, favored to be post op seroma vs hematoma no current signs of cellulitis Patient has been afberile during admission course Leukocytosis has persisted 20K--> 16K --> 18K Blood cx negative to date Urine cx negative from 04/02 check CXR to assess for consolidation, atelactasis no diarrhea check Resp viral panel as may explain fever at SNF Per chart review, has been noted to have previous chronic leukocytosis, check peripheral smear PDMP PDMP Reviewed: Not Reviewed Coding Level of Care Code Acute Code for Chg Fwd Diagnoses Chronic osteomyelitis of left foot M86.672 PAD (peripheral artery disease) I73.9 DM2 (diabetes mellitus, type 2) E11.9 Leukocytosis D72.829
[2025-04-05] VITALS (10 sets, daily range): BP systolic 112–168; BP diastolic 61–79; PULSE 60–83; RESP 16–17; TEMP 36.4–37.7; O2SAT 92–97
[2025-04-05] MEDS: piperacillin-tazobactam 3.375 GM in sodium chloride 0.9% (plus) 50 ML IV ×3 (04:57→21:17)
[2025-04-05] MEDS: mupirocin oint 22 gm 1 APPLIC TOPICAL ×2 (04:57→17:49)
[2025-04-05] MEDS: calcium carb-vit d 600mg/400unit 1 Tablet 1 EACH PO ×2 (04:59→17:46)
[2025-04-05] MEDS: insulin glargine 100 units/1 mL 8 UNIT SUBCUT (04:59)
[2025-04-05] MEDS: multivitamin therapeutic Tablet 1 TAB PO (04:59)
--- NOTE | 2025-04-05 06:00 | XR_ITS ---
WS: [id number] Portable AP upright chest, Clinical Data: assess for infiltrates vs atelactasis Comparison: Portable chest, 07/20/2022 Findings: There are patchy opacities in the right upper lobe with a dense opacity in the right hilum. There are small granulomas throughout the lungs. The heart is enlarged. No masses or effusions are seen. The aortic arch and descending thoracic aorta show tortuosity. No pneumothorax is seen. Monitor leads are on the chest wall. XR/XR chest 1V portable [id number] Impression: 1. Patchy opacities in right upper lobe and dense opacity in right hilum which could represent acute pneumonia. 2. Cardiomegaly and atherosclerosis.
[2025-04-05 06:54] LABS: Hematocrit 25.5 % (37-53); Hemoglobin 8.50 g/dL (11.27-16.99); Mean Corpuscular HGB Conc 33.3 g/dL (30-55); Mean Corpuscular Hemoglobin 28.3 pg (27-33); Mean Corpuscular Volume 85.0 fl (82-101); Nucleated Red Blood Cells % 0 %; Platelet Count 456 10^3/cmm (157-399); Red Blood Count 3.00 10^6/uL (3.85-5.65); White Blood Count 17.02 10^3/uL (3.29-11.43)
[2025-04-05 07:18] LABS: Alanine Aminotransferase 8 U/L (0-41); Albumin Level 2.2 g/dL (3.5-5.2); Alkaline Phosphatase 126 U/L (40-130); Anion Gap 13.9 (5-19); Aspartate Amino Transferase 13 U/L (0-40); Blood Urea Nitrogen 13 mg/dL (8-23); Calcium 7.8 mg/dL (8.5-10.5); Carbon Dioxide 25 mmol/L (22-29); Chloride 100 mmol/L (98-107); Globulin 4.0 g/dL (1.3-4.6); Glucose 190 mg/dL (65-115); Osmolality Calculated 285 mOsm/kg (285-295); Potassium 3.9 mmol/L (3.5-5.1); Sodium 135 mmol/L (136-145); Total Protein 6.2 g/dL (6.6-8.7)
[2025-04-05 07:40] LABS: LAB Peripheral Smear Sent for Review
--- NOTE | 2025-04-05 08:21 | PM.MISC ---
Miscellaneous Note Purpose of Documentation: CXR this morning showed rul infiltrates. Keep Zosyn for HAP. Add azithromycin. MRSA nasal screen negative. Check sputum cx. Patient does not c/o any respiratory symptoms which is odd for an acute pneumonia. check resp viral panel. CT chest w/o contrast as malignancy is on the differential given his h/o chronic smoking
[2025-04-05 10:22] LABS: Coronavirus 229E,HKU1,NL63,OC4 Not Detected (NOT DETECT); Parainfluenza Virus Type 1 Not Detected (NOT DETECT); Parainfluenza Virus Type 2 Not Detected (NOT DETECT); Parainfluenza Virus Type 3 Not Detected (NOT DETECT); Parainfluenza Virus Type 4 Not Detected (NOT DETECT); SARS-COV-2 Not Detected (NOT DETECT)
--- NOTE | 2025-04-05 18:51 | P.PN_ITS ---
Subjective 2 Subjective: the patient was seen in the morning, doing well, He is improving in terms of his symptoms and feeling much alert and awake However still having marked leukocytosis, surgery site looks clean CXR showing atypical Pneu features on the right side, resp viral panel negative ID onboard, added coverage for atypical pneum and also to work up for possible other significant reasons like malignancy, CT chest with contrast ordered Vitals/I&O/Wt Last Vital Signs Temp 97.7 F 04/05/25 16:00 Pulse 83 04/05/25 16:00 Resp 16 04/05/25 16:00 BP 168/79 04/05/25 16:00 Pulse Ox 92 04/05/25 16:00 O2 Del Method Room Air 04/05/25 16:00 O2 Flow Rate 0 04/01/25 20:00 04/05/25 04/05/25 04/05/25 06:59 14:59 22:59 Intake Total 818.75 / 2860.00 777.5 / 777.5 50 / 827.5 Output Total 600 / 1600 550 / 550 400 / 950 Balance 218.75 / 1260.00 227.5 / 227.5 -350 / -122.5 Weight last 48 hrs Weight 83.461 kg Weight 83.642 kg Physical Exam 2 Narrative: General: Alert and oriented, lying comfortably without any distress HEENT: Normocephalic, atraumatic, grossly unremarkable exam Cardio: normal rate rhythm, normal S1-S2 without any murmurs, rubs, or gallops and JVD normal Respiratory: normal vascular breathing on auscultation without any wheezes, stridor, rhonchi GI: Abdomen soft, nontender, nondistended, normoactive bowel sounds present all 4 quadrants, Neuro: intact cranial nerves motor and sensory and cerebellar/coordination function without any focal neurological deficit Behavior: Appropriate and cooperative Extremities: Adequate palpable pulses, mild trace edema, below-knee amputation of the left leg, with rona and no fluctuant skin or increased temperature of the skin relative to the normal skin, no oozing from the area, with adequate perfusion on examination, mild redness at the surgery site but does not seem to be sign of infection, chronic skin changes on the right Lower ext of PAD Data 04/05/25 06:25 04/05/25 06:25 A&P Assessment and plan 1. Leukocytosis: Patient presented with subjective fevers and confusion with mild low-grade fever and increased leukocytosis in comparison to the day of discharge from around 11,000-20,000 Cultures till date negative CXR showing atypical pneum features, resp viral panel negative, patient asymptomatic Continue broad-spectrum antibiotics with Zosyn and azthro for atypical pneum coverage ct chest w/o contrast ID onboard 2. Amputation of left lower extremity below knee: BKA 03/27/2025 Tibia-fibula x-ray; postoperative changes Having pain, but no oozing or discharge, area of surgery looks clean, CT scan of the left BKA showed mild collection of around 13 mm, orthopedic surgeon on board no surgical intervention Pain management Wound care 3. Essential hypertension: Continue metoprolol 25 twice daily and amlodipine 10 mg daily Continue to monitor and tailor antihypertensive accordingly 4. Anemia: Keep hemoglobin above 7 Slowly trending down hemoglobin, however no significant source of bleeding Anemia workup and to follow Monitor CBC 5. DM2 (diabetes mellitus, type 2): Initially, patient having hypoglycemia with HbA1c of 10.6% recently Could be an element of infection leading to hypoglycemia? currently resolved Currently getting better and more on the hyperglycemic side cont insulin glargine 5 units and insulin sliding scale Continue to monitor and tailor glucose control accordingly PDMP PDMP Reviewed: Not Reviewed Attestations 2 Medical Necessity Statement*: Patient will stay more than 2 midnights in the hospital for the management of marked leukocytosis with possible underlying pneumonia vs malignancy? that required IV antibiotics and ID recommendations and the patient is s/p left BKA recently. Time Spent in Patient Care: 16 - 35 minutes (>than 50% of time sp ent in counselling and/or direct pt care on unit) . Other Attestations: Patient condition has been discussed at length with the patient/family, I have independently reviewed the chart labs imaging/diagnostics/EKG. the goals of care and code status with the patient/family/NOK/legal patient registration representative, and documented accordingly. I have reconciled the medications after confirmation/comorbidities/current clinical condition. The management has been done according to the current clinical condition with respect to patient goals of care and based on recommendations/guidelines. The patient/family has been informed about the current condition and further plan of care. Agreed with the plan of care and understood without any language barrier. Every effort was made to ensure accuracy of claim approver. Any obvious errors or omissions should be clarified with the author of the document. Coding Level of Care Code 71832 Diagnoses Leukocytosis D72.829 Amputation of left lower extremity below knee S88.112A Encounter type: initial encounter Essential hypertension I10 Anemia D64.9 DM2 (diabetes mellitus, type 2) E11.9
[2025-04-05 18:54] LABS: Glucose Urine UA Trace (Normal); Nitrate Urine Negative (Negative); Specific Gravity, Urine 1.011 (1.005-1.030)
[2025-04-05 18:56] LABS: Add Urine Microscopic? YES
--- NOTE | 2025-04-05 20:52 | CTR_ITS ---
PROCEDURE INFORMATION: Exam: CT Chest Without Contrast; Diagnostic Exam date and time: 04/05/2025 9:37 PM Age: 64 years old Clinical indication: Other: Abnormal infiltrates; Additional info: Abnormal infiltrates on right side with increased wbcs? , Atypical pneum vs malignancy? TECHNIQUE: Imaging protocol: Diagnostic computed tomography of the chest without contrast. Radiation optimization: All CT scans at this facility use at least one of these dose optimization techniques: automated exposure control; mA and/or kV adjustment per patient size (includes targeted exams where dose is matched to clinical indication); or iterative reconstruction. COMPARISON: CR XR chest 1V portable [id number] 04/05/2025 7:07 AM RADIATION DOSE METRICS: Total DLP (mGy-cm): 518.67 FINDINGS: Lungs: Infiltrates in the superior aspect of the right lower lobe as well as the right upper lobe, nonspecific although concerning for pneumonia with other etiologies not excluded. More subtle findings in the left lower lobe, possibly part of the same process. Pleural spaces: Mild bilateral pleural effusions with associated atelectasis, superimposed infection not excluded. Heart: Unremarkable. No cardiomegaly. No pericardial effusion. Lymph nodes: Unremarkable. No enlarged lymph nodes. Vasculature: Aortic and coronary atherosclerosis. Gallbladder and biliary ducts: Gallstones without definite significant acute inflammatory changes. Kidneys: Bilateral nonobstructing renal calculi. Bones/joints: [id number] bony degenerative changes of the thoracic vertebral bodies. Soft tissues: Unremarkable. CT/CT chest con [id number] IMPRESSION: Infiltrates in the superior aspect of the right lower lobe as well as the right upper lobe, nonspecific although concerning for pneumonia with other etiologies not excluded.
[2025-04-06 03:45] LABS: Hematocrit 24.5 % (37-53); Hemoglobin 8.00 g/dL (11.27-16.99); Mean Corpuscular HGB Conc 32.7 g/dL (30-55); Mean Corpuscular Hemoglobin 27.5 pg (27-33); Mean Corpuscular Volume 84.2 fl (82-101); Nucleated Red Blood Cells % 0 %; Platelet Count 425 10^3/cmm (157-399); Red Blood Count 2.91 10^6/uL (3.85-5.65); White Blood Count 17.72 10^3/uL (3.29-11.43)
[2025-04-06 04:00] VITALS: BP 135/85; PULSE 78; RESP 17; TEMP 36.9; O2SAT 91
[2025-04-06 04:09] LABS: Alanine Aminotransferase 8 U/L (0-41); Albumin Level 2.2 g/dL (3.5-5.2); Alkaline Phosphatase 124 U/L (40-130); Anion Gap 12.1 (5-19); Aspartate Amino Transferase 12 U/L (0-40); Blood Urea Nitrogen 14 mg/dL (8-23); Calcium 8.0 mg/dL (8.5-10.5); Carbon Dioxide 27 mmol/L (22-29); Chloride 101 mmol/L (98-107); Globulin 4.1 g/dL (1.3-4.6); Glucose 185 mg/dL (65-115); Osmolality Calculated 287 mOsm/kg (285-295); Potassium 4.1 mmol/L (3.5-5.1); Sodium 136 mmol/L (136-145); Total Protein 6.3 g/dL (6.6-8.7)
[2025-04-06] MEDS: insulin glargine 100 units/1 mL 8 UNIT SUBCUT (04:47)
[2025-04-06] MEDS: calcium carb-vit d 600mg/400unit 1 Tablet 1 EACH PO (04:49)
[2025-04-06] MEDS: multivitamin therapeutic Tablet 1 TAB PO (04:49)
[2025-04-06] MEDS: piperacillin-tazobactam 3.375 GM in sodium chloride 0.9% (plus) 50 ML IV (04:58)
[2025-04-06] MEDS: mupirocin oint 22 gm 1 APPLIC TOPICAL (04:59)
[2025-04-06 06:00] VITALS: PULSE 77
--- NOTE | 2025-04-06 08:18 | P.PN_ITS ---
Subjective 2 Subjective: no acute interim events WBC at 17K CT chest confirms Pneumonia,patient fells well overall Medications: Reviewed: Yes Vitals/I&O/Wt Last Vital Signs Temp 98.4 F 04/06/25 04:00 Pulse 77 04/06/25 06:00 Resp 17 04/06/25 04:00 BP 135/85 04/06/25 04:00 Pulse Ox 91 04/06/25 04:00 O2 Del Method Room Air 04/06/25 04:00 O2 Flow Rate 0 04/01/25 20:00 04/05/25 04/06/25 04/06/25 22:59 06:59 14:59 Intake Total 50 / 827.5 50 / 877.5 Output Total 600 / 1150 200 / 1350 Balance -550 / -322.5 -150 / -472.5 Weight last 48 hrs Weight 86.183 kg Weight 83.461 kg Physical Exam 2 Narrative: Assessed via telehealth no acute distress laying in bed comfotably no focal deficits one xam grossly Ext: Lower extremity s/p BKA left side with surgical rona in place. Mild erythema without any gross cellulitis Data 04/06/25 03:24 04/06/25 03:24 A&P Assessment and plan 1. Chronic osteomyelitis of left foot: s/p BKA 2. PAD (peripheral artery disease): 3. DM2 (diabetes mellitus, type 2): 4. Leukocytosis: Plan: 64 M with uncontrolled DM, multiple diabteic foot ulcers in the past, left foot chronic osteomyelitis s/p BKA 03/27, severe PAD s/p revascularization 03/26, chronic leukocytosis admitted 2 days post discharge due to reported fever, chills and concern for stump infection. CT leg with noted collection, favored to be post op seroma vs hematoma no current signs of cellulitis Patient has been afberile during admission course Leukocytosis has persisted 20K--> 16K --> 18K Blood cx negative to date Urine cx negative from 04/02 check CXR to assess for consolidation, atelactasis no diarrhea check Resp viral panel as may explain fever at [facility] Per chart review, has been noted to have previous chronic leukocytosis, check peripheral smear 04/06/25: CXR abd CT chest confirm RUL and RLL pneumonia, suspect aspiration vs HAP pneumonia. Since patient is otherwise clinically improving, change to po augmentin + levofloxacin if discharge is planned for today. recommend serial CXR in 2 weeks to ensure continued improvement. PDMP PDMP Reviewed: Not Reviewed Attestations 2 Medical Necessity Statement*: per admitting Coding Level of Care Code Acute Code for Chg Fwd Diagnoses Chronic osteomyelitis of left foot M86.672 PAD (peripheral artery disease) I73.9 DM2 (diabetes mellitus, type 2) E11.9 Leukocytosis D72.829
[2025-04-06 08:19] VITALS: BP 112/65; PULSE 76; RESP 16; TEMP 36.4; O2SAT 93
--- NOTE | 2025-04-06 08:30 | PC.SOCIAL ---
IMM Updated Updated pt on IMM. No questions voiced. Provided pt a copy. Initialed, dated, & timed copy in chart.
[2025-04-06 08:56] VITALS: BP 112/65; PULSE 76; RESP 16; TEMP 36.4
[2025-04-06] MEDS: cefepime 2,000 mg SDV 2000 MG IVP (09:15)
--- NOTE | 2025-04-06 12:07 | P.DS_ITS ---
Discharge Providers Date of Admission: 04/01/25 17:30 Date of Discharge: April 06, 2025 Attending Provider at Admission: Dinesh Antonio MD Attending Provider at Discharge: Suzie Hernandez MD Primary Care Provider: Juany Guajardo DO Diagnoses at Discharge Discharge Diagnosis 1. Chronic osteomyelitis of left foot: 2. PAD (peripheral artery disease): 3. DM2 (diabetes mellitus, type 2): 4. Leukocytosis: Reason for Visit Reason for Visit: LEFT LEG PAIN Brief History: As per the admitting physician and the retrospective note review: Marquis Ballard is a 64 year old male with prior medical history of PAD, DM, ulcers, cellulitis, JOSÉ, bailey, left BKA, gangrene, nicotine dependence, and noncompliance presenting with complaints of left leg pain. Patient resides in a shelter. Patient had history of left heel ulceration and osteomyelitis despite IV antibiotics. On 03/27/25, patient had a left BKA and was discharged to his facility (03/30/25) on augmentin and doxycycline. Today, he had increased left leg pain as well as confusion. Staff also noted that he has fever, chills, and two new areas of ulceration to the anterior aspect of his left knee. EMS was called and he was transported to [facility] for assessment. Of note, family stressors; patient is and currently lives alone. In the ED, BP 182/90, HR 86, RR 14, T 98.3, O2 94% on room air. WBC 20.34, HGB 9.90, PLT 424. NA 134. Glucose 56. AST/ALT WNL. ALP 147. Albumin 2.4. Left leg x-ray unremarkable, see full results. Will admit to the Hospitalist Service for further evaluation and treatment. Hospital Course Hospital Course Patient admitted as a case of sepsis, with high leukocytosis and altered mentation as per the admitting physician notes. Patient was started on broad- spectrum antibiotics blood cultures were sent. And further recommendation from orthopedics was taken to evaluate the patient left-sided stump just recently s/p BKA. There was no intervention since the stump looked clean. The patient had ongoing leukocytosis and initially hypoglycemia. Blood cultures since the day of admission till now were negative. Imaging study showed chest x-ray showing right-sided possible atypical pneumonia versus aspirations which might be related to his time when he was in the surgery. However patient did not report any flulike symptoms, fever or chills and was feeling better throughout hospital stay. Initial hypoglycemia also settled down after starting him on antibiotics. Including the first time of admission and then recurrent admission, the patient received adequate and appropriate recommended doses of antibiotics for coverage. During this admission he was given Zosyn and vancomycin and then vancomycin was discontinued considering his MRSA was negative. ID was consulted and further reviewed that the patient is having chronic leukocytosis. And there was no convincing source of infection leading to this much leukocytosis?. However after stabilizing him vitally and reviewing his diagnosis thoroughly, patient to be discharged on Augmentin and levofloxacin with adequate pseudomonal coverage for total 7 days. And to repeat the chest x-ray in 2 weeks with follow-up with ID. His insulin dose was also reduced considering he had hypoglycemia and to follow-up with endocrinology at the time of discharge Physical Exam Narrative: General: Alert and oriented, lying comfortably without any distress HEENT: Normocephalic, atraumatic, grossly unremarkable exam Cardio: normal rate rhythm, normal S1-S2 without any murmurs, rubs, or gallops and JVD normal Respiratory: normal vascular breathing on auscultation without any wheezes, stridor, rhonchi GI: Abdomen soft, nontender, nondistended, normoactive bowel sounds present all 4 quadrants, Neuro: intact cranial nerves motor and sensory and cerebellar/coordination function without any focal neurological deficit Behavior: Appropriate and cooperative Extremities: Adequate palpable pulses, mild trace edema, below-knee amputation of the left leg, with rona and no fluctuant skin or increased temperature of the skin relative to the normal skin, no oozing from the area, with adequate perfusion on examination, mild redness at the surgery site but does not seem to be sign of infection, chronic skin changes on the right Lower ext of PAD Discharge Data Studies Completed and Pending Completed Studies During Hospitalization Category Date Time Status CT chest wo con [id number] Routine Cat Scan 04/05/25 20:[address] lower leg LT wo con* [id number] Routine Cat Scan 04/02/25 13:41 Completed CXRP [XR chest 1V portable [id number]] Routine Exams 04/05/25 06:00 Completed XR tibia fibula LT 2V [id number] Stat Exams 04/01/25 14:42 Completed Pending at discharge Category Date Time Status Blood Culture Stat Lab 04/01/25 15:36 Results Legionella Antigen STAT Routine Lab 04/06/25 08:15 Uncollected Sputum Culture and Gram Stain Routine Lab 04/06/25 08:15 Uncollected Radiology Impressions Tibia/Fibula X-Ray 04/01/25 14:42 IMPRESSION: Postoperative changes. Lower Extremity CT 04/02/25 13:41 IMPRESSION: 1. Question of a 13 mm fluid collection near the center of the soft tissue flap and adjacent to the popliteal artery, best seen on coronal image 19. This is indeterminate and not well evaluated without IV contrast. If further evaluation necessary, consider ultrasound. 2. Diffuse subcutaneous fatty reticulation compatible with generalized edema. 3. No evidence of gas producing infection. Chest X-Ray 04/05/25 06:00 Impression: 1. Patchy opacities in right upper lobe and dense opacity in right hilum which could represent acute pneumonia. 2. Cardiomegaly and atherosclerosis. Chest CT 04/05/25 20:52 IMPRESSION: Infiltrates in the superior aspect of the right lower lobe as well as the right upper lobe, nonspecific although concerning for pneumonia with other etiologies not excluded. Laboratory Results WBC 17.72 10^3/uL (3.29-11.43) H 04/06/25 03:24 RBC 2.91 10^6/uL (3.85-5.65) L 04/06/25 03:24 Hgb 8.00 g/dL (11.27-16.99) L 04/06/25 03:24 Hct 24.5 % (37-53) L 04/06/25 03:24 MCV 84.2 fl (82-101) 04/06/25 03:24 MCH 27.5 pg (27-33) 04/06/25 03:24 MCHC 32.7 g/dL (30-55) 04/06/25 03:24 RDW 13.0 % (12.1-15.1) 04/06/25 03:24 Plt Count 425 10^3/cmm (157-399) H 04/06/25 03:24 MPV 9.6 fL (7.4-10.4) 04/06/25 03:24 Neut % (Auto) 74.6 % 04/06/25 03:24 Lymph % (Auto) 12.0 % 04/06/25 03:24 Kerr % (Auto) 10.0 % 04/06/25 03:24 Eos % (Auto) 1.6 % 04/06/25 03:24 Baso % (Auto) 0.5 % 04/06/25 03:24 Neut # (Auto) 13.22 10^3/uL (1.8-7.7) H 04/06/25 03:24 Lymph # (Auto) 2.1 10^3/uL (0.8-4.8) 04/06/25 03:24 Kerr # (Auto) 1.8 10^3/uL (0.2-0.9) H 04/06/25 03:24 Eos # (Auto) 0.3 10^3/uL (0.0-0.8) 04/06/25 03:24 Baso # (Auto) 0.1 10^3/uL (0.0-0.1) 04/06/25 03:24 Nucleated RBC % (auto) 0 % 04/06/25 03:24 Nucleated RBCs # 0.0 /100WBC 04/06/25 03:24 Peripher Smr Path Cons Sent for review 04/05/25 06:25 ESR 28 mm/hr (0-10) H 04/01/25 15:35 Sodium 136 mmol/L (136-145) 04/06/25 03:24 Potassium 4.1 mmol/L (3.5-5.1) 04/06/25 03:24 Chloride 101 mmol/L (98-107) 04/06/25 03:24 Carbon Dioxide 27 mmol/L (22-29) 04/06/25 03:24 Anion Gap 12.1 (5-19) 04/06/25 03:24 BUN 14 mg/dL (8-23) 04/06/25 03:24 Creatinine 1.5 mg/dL (0.7-1.2) H 04/06/25 03:24 GFR Calculation 47.0 mL/min (90-130) L 04/06/25 03:24 Glucose 185 mg/dL (65-115) H 04/06/25 03:24 POC Glucose 242 mg/dL (70-110) H 04/06/25 11:32 Estimat Average Glucose 258 04/01/25 15:35 Hemoglobin A1c 10.6 % (4.0-6.0) H 04/01/25 15:35 Calculated Osmolality 287 mOsm/kg (285-295) 04/06/25 03:24 Lactic Acid 1.4 mmol/L (0.5-2.2) 04/01/25 15:35 Calcium 8.0 mg/dL (8.5-10.5) L 04/06/25 03:24 Phosphorus 2.6 mg/dL (2.5-4.5) 04/02/25 02:48 Magnesium 1.3 mg/dL (1.7-2.3) L 04/02/25 02:48 Iron 21 ug/dL (59-158) L 04/04/25 17:24 TIBC 165 mcg/dl 04/04/25 17:24 % Saturation 12.7 % (20-50) L 04/04/25 17:24 Unsat Iron Binding 144 ug/dL (112-347) 04/04/25 17:24 Ferritin 91 ng/mL (30-400) 04/04/25 17:24 Total Bilirubin 0.2 mg/dL (0.15-1.2) 04/06/25 03:24 AST 12 U/L (0-40) 04/06/25 03:24 ALT 8 U/L (0-41) 04/06/25 03:24 Alkaline Phosphatase 124 U/L (40-130) 04/06/25 03:24 C-Reactive Protein 116.7 mg/L (0.0-4.9) H 04/01/25 15:35 Total Protein 6.3 g/dL (6.6-8.7) L 04/06/25 03:24 Albumin 2.2 g/dL (3.5-5.2) L 04/06/25 03:24 Globulin 4.1 g/dL (1.3-4.6) 04/06/25 03:24 Vitamin B12 401 pg/mL (232-1245) 04/04/25 17:24 Folate 9.9 ng/mL (4.5-32.2) 04/04/25 17:24 Urine Color Yellow (Yellow) 04/05/25 18:30 Urine Appearance Clear (CLEAR) 04/05/25 18:30 Urine pH 5.0 (5-7) 04/05/25 18:30 Ur Specific Galvin 1.011 (1.005-1.030) 04/05/25 18:30 Urine Protein 2+ (Negative) A 04/05/25 18:30 Urine Glucose (UA) Trace (Normal) H 04/05/25 18:30 Urine Ketones Negative (Negative) 04/05/25 18:30 Urine Blood 1+ (Negative) A 04/05/25 18:30 Urine Nitrate Negative (Negative) 04/05/25 18: Urine Bilirubin Negative (Negative) 04/05/25 18: Urine Urobilinogen 0.2 mg/dL (Negative) 04/05/25 18:30 Ur Leukocyte Esterase Negative (Negative) 04/05/25 18:30 Urine RBC 3-5 /hpf (0-2) 04/05/25 18: Urine WBC 0-5 /hpf (0-5) 04/05/25 18:30 Ur Squamous Epith Cells 0-5 /hpf (0-5) 04/05/25 18:30 Amorphous Sediment Not Reportable 04/05/25 18:30 Urine Bacteria None seen /hpf (NONE) 04/05/25 18:30 Hyaline Casts 0.81 /lpf 04/05/25 18:30 Nasal MRSA (PCR) Not detected (Negative) 04/02/25 14:27 Adenovirus (PCR) Not detected (NOT DETECT) 04/05/25 08:28 C. pneumoniae DNA (PCR) Not detected (NOT DETECT) 04/05/25 08:28 Coronavirus 229E (PCR) Not detected (NOT DETECT) 04/05/25 08:28 Human Metapneumovir PCR Not detected (NOT DETECT) 04/05/25 08:28 Influenza A (H1) PCR Not detected (NOT DETECT) 04/05/25 08:28 Influ A (H1/09) PCR Not detected (NOT DETECT) 04/05/25 08:28 Influenza A (H3) PCR Not detected (NOT DETECT) 04/05/25 08:28 Influenza Type A (PCR) Not detected (NOT DETECT) 04/05/25 08:28 Influenza Type B (PCR) Not detected (NOT DETECT) 04/05/25 08:28 M. pneumoniae (PCR) Not detected (NOT DETECT) 04/05/25 08:28 Parainfluenza 1 (PCR) Not detected (NOT DETECT) 04/05/25 08:28 Parainfluenza 2 (PCR) Not detected (NOT DETECT) 04/05/25 08:28 Parainfluenza 3 (PCR) Not detected (NOT DETECT) 04/05/25 08:28 Parainfluenza 4 (PCR) Not detected (NOT DETECT) 04/05/25 08:28 RSV Type A (PCR) Not detected (NOT DETECT) 04/05/25 08:28 RSV Type B (PCR) Not detected (NOT DETECT) 04/05/25 08:28 Entero/Rhino (PCR) Not detected (NOT DETECT) 04/05/25 08:28 SARS-CoV-2 (PCR) Not detected (NOT DETECT) 04/05/25 08:28 Vitals Last Vital Signs Temp 97.6 F 04/06/25 08:19 Pulse 76 04/06/25 08:19 Resp 16 04/06/25 08:19 BP 112/65 04/06/25 08:19 Pulse Ox 93 04/06/25 08:19 O2 Del Method Room Air 04/06/25 04:00 O2 Flow Rate 0 04/01/25 20:00 Discharge Plan Discharge Patient Disposition: Xfer SNF Condition: Stable Prescriptions: New amlodipine 10 mg Tablet 10 mg PO DAILY 60 Days Qty: 60 0RF levofloxacin 750 mg tablet 750 mg PO DAILY 7 Days Qty: 7 0RF amoxicillin-pot clavulanate [Augmentin] 500-125 mg tablet 1 tab PO BID 7 Days Qty: 14 0RF Continued (DME) articulating AFO with accommodated orthotic and toe filler to left See Rx Instructions .Route .MEDSUPPLY Qty: 1 0RF Rx Instructions: As directed by DAVID&O (DME) Dexcom G7 Power Wood Sawyer Misc See Rx Instructions .Route Qty: 1 0RF Rx Instructions: As directed (DME) Omnipod 5 G6-G7 Pods (Gen 5) Cartridge See Rx Instructions .Route Qty: 15 1RF Rx Instructions: As directed (DME) Omnipod 5 G6-G7 Intro Kt(Gen5) Cartridge See Rx Instructions .Route Qty: 1 0RF Rx Instructions: As directed atorvastatin 80 mg tablet 80 mg PO BEDTIME Qty: 90 1RF (DME) OneTouch Ultra Test Strip See Rx Instructions .Route Qty: 300 3RF Rx Instructions: Use with glucometer TID (DME) lancets [Accu-Chek Softclix Lancets] Misc See Rx Instructions .Route Qty: 100 0RF Rx Instructions: As directed (DME) Dexcom G7 Sensor Device See Rx Instructions .ROUTE .MEDSUPPLY Qty: 9 3RF Rx Instructions: Change every 10days metoprolol tartrate 25 mg tablet 25 mg PO BID Qty: 180 1RF clopidogrel 75 mg tablet 75 mg PO DAILY gabapentin 100 mg capsule 100 mg PO TID Dose Instruction: take 1 capsule BY MOUTH THREE TIMES DAILY duloxetine 30 mg capsule,delayed release(DR/EC) 30 mg PO BID Qty: 60 3RF (DME) cam boot See Rx Instructions .Route .MEDSUPPLY Qty: 1 0RF Rx Instructions: As directed (DME) pen needle, diabetic [TechLITE Pen Needle] 32 gauge x 5/32 needle See Rx Instructions .ROUTE .COMPLEX Qty: 100 0RF Dose Instruction: USE DIRECTED WITH TRESIBA TWICE DAILY Rx Instructions: USE DIRECTED WITH TRESIBA TWICE DAILY (DME) diabetic shoes See Rx Instructions .Route .MEDSUPPLY Qty: 1 0RF Rx Instructions: As directed aspirin 81 mg Tablet,Delayed Release (Dr/Ec) 81 mg PO DAILY metformin 1,000 mg tablet 1,000 mg PO BID mupirocin [Centany] 2 % ointment 1 applic topical BID Qty: 22 0RF (DME) Vaseline Petrolatum Gauze 1 X 8 bandage See Rx Instructions .Route Qty: 200 0RF Rx Instructions: As directed (DME) Kerlix 2 1/4 X 3 -yard bandage See Rx Instructions .Route Qty: 96 0RF Rx Instructions: As directed polysaccharide iron complex [Ferrex 150] 150 mg iron Capsule 150 mg PO BIDWM 30 Days Qty: 30 0RF tramadol 50 mg Tablet 50 mg PO Q4H PRN (Reason: Mild Pain) 7 Days Qty: 15 0RF oxycodone 5 mg Tablet 5 - 10 mg PO Q4H PRN (Reason: Moderate To Severe Pain 1st ) 7 Days Qty: 15 0RF calcium carbonate-vitamin D3 600 mg-10 mcg (400 unit) Tablet 1 tab PO BID 60 Days Qty: 120 0RF multivitamin with folic acid [Thera] 400 mcg Tablet 1 tab PO DAILY 60 Days Qty: 60 0RF acetaminophen 325 mg Tablet 650 mg PO Q6H PRN (Reason: pain/increased temp) magnesium hydroxide [Milk of Magnesia] 400 mg/5 mL Suspension 30 ml PO .Q72H PRN (Reason: Constipation) bisacodyl 10 mg Suppository 10 mg NJ DAILY PRN (Reason: Constipation) Fleet Enema 19-7 gram/118 mL Enema 118 ml NJ DAILY PRN (Reason: Constipation) omeprazole 20 mg capsule,delayed release(DR/EC) 20 mg PO DAILY bisacodyl 5 mg Tablet 10 mg PO DAILY PRN (Reason: Constipation) Changed insulin lispro [Humalog KwikPen Insulin] 100 unit/mL insulin pen 10 unit SUBCUT TID PRN (Reason: blood sugar) 60 Days Qty: 0 0RF insulin glargine-yfgn [Semglee(insulin glarg-yfgn)Pen] 100 unit/mL (3 mL) insulin pen 35 unit SUBCUT DAILY 60 Days Qty: 0 0RF Discontinued doxycycline monohydrate 100 mg Tablet 100 mg PO BID 7 Days Qty: 14 0RF amoxicillin-pot clavulanate 875-125 mg Tablet 1 tab PO BID 7 Days Qty: 14 0RF amlodipine 5 mg Tablet 5 mg PO DAILY 60 Days Qty: 60 0RF Cook Cold Meat OK for DC: Infectious Disease Discharge Order = DC NOW: Discharge Order (Routine); Ordered 04/06/25 Ordered By: Suzie Hernandez Other Ambulatory Orders: XR chest 1V [id number] (Routine) Timeframe: 2 Weeks Facility: [facility] - Location: Rad[facility] Ordered By: Suzie Hernandez Referrals: [facility] [Outside] Shoaib Louise MD [[place], Oncology & Hematology] - 2 weeks Referral Note: chronic leukocytosis for work up We have notified your physician's clinic of the need for a follow-up appointment to be scheduled. If you have not heard from them within the next 2 business days, please call them directly. Belén Champion MD [Hospitalist, Hospitalist] - 2 weeks Referral Note: ID follow up for leukocytosis and CXR We have notified your physician's clinic of the need for a follow-up appointment to be scheduled. If you have not heard from them within the next 2 business days, please call them directly. Juany Guajardo DO [Primary Care Provider, Family Practice] Discharge Diet: Advance as tolerated and Diabetic Discharge Activity: Limit activity as instructed Patient Instructions: Opioid Safety, Patient Portal & Cassandra Instructions Discharge Attestations Time Spent in Discharge Care*: greater than 30 min Specific Discharge Activities: educating patient, educating and/or supporting family/caregiver, discussing with pcp/other providers, discussing with correctional casework specialist/social workers/dc planners, documenting/other paperwork and evaluating patient/reviewing data Status at Discharge: Cognitive status at discharge: cognitively intact , Behavioral status at discharge: cooperative , Functional status at discharge: other assisted ambulation , Overall status at discharge: patient is back to baseline Quality Metrics Clinical Quality Measures [ No reported AMI, CVA or VTE this stay] Coding Level of Care Code 91899 Diagnoses Chronic osteomyelitis of left foot M86.672 PAD (peripheral artery disease) I73.9 DM2 (diabetes mellitus, type 2) E11.9 Leukocytosis D72.829
[2025-04-06 13:44] VITALS: BP 133/66; PULSE 80; RESP 16; TEMP 36.8; O2SAT 90
[2025-04-06 14:00] VITALS: BP 133/66; PULSE 80; RESP 16; TEMP 36.8; O2SAT 90
--- NOTE | 2025-04-06 15:17 | PC.OT ---
OT EVALUATION ATTEMPTED IN A.M. PATIENT WAS SLEEPING SOUNDLY. I WAS HEADING UPSTAIRS IN P.M., PATIENT WAS SEEN WITH SNF STAFF BEING WHEELED OUT OF THE FACILITY IN A W/C
--- NOTE | 2025-04-06 15:33 | PC.NURSE ---
Called report to Sudarshan Carrasco at 1400, [facility]
== END 2025-04-06 14:32 | disposition skilled nursing facility (03) | DRG 194 ==
LOC: ER 16:24 → ER IP 18:05 → MEDSURG 18:21
PROVIDERS: Clinical Nurse Specialist Acute Care; Student in an Organized Health Care Education/Training Program; Admitting Provider Internal Medicine; Emergency Provider Physician Assistant; PCP Family Medicine; Visit Provider Student in an Organized Health Care Education/Training Program
DX: J18.9 Pneumonia, unspecified organism (principal); L97.829 Non-pressure chronic ulcer of other part of left lower leg with unspecified severity; E11.51 Type 2 diabetes mellitus with diabetic peripheral angiopathy without gangrene; I10 Essential (primary) hypertension; E78.5 Hyperlipidemia, unspecified; E11.649 Type 2 diabetes mellitus with hypoglycemia without coma; F17.210 Nicotine dependence, cigarettes, uncomplicated; D64.9 Anemia, unspecified; E29.1 Testicular hypofunction; E11.622 Type 2 diabetes mellitus with other skin ulcer; R41.82 Altered mental status, unspecified; F32.9 Major depressive disorder, single episode, unspecified; Z79.82 Long term (current) use of aspirin; Z79.02 Long term (current) use of antithrombotics/antiplatelets; Z79.4 Long term (current) use of insulin; Z79.84 Long term (current) use of oral hypoglycemic drugs; Z79.899 Other long term (current) drug therapy; Z88.6 Allergy status to analgesic agent; Z88.2 Allergy status to sulfonamides; Z88.8 Allergy status to other drugs, medicaments and biological substances; Z89.421 Acquired absence of other right toe(s); Z96.642 Presence of left artificial hip joint; Z91.199 Patient's noncompliance with other medical treatment and regimen due to unspecified reason; Y95 Nosocomial condition; Z11.52 Encounter for screening for COVID-19
CPT/HCPCS: 36415; 36416; 71045; 71250; 73590; 73700; 80048; 80053; 80503; 81001; 82607; 82728; 82746; 82962; 83036; 83540; 83550; 83605; 83735; 84100; 85025; 85651; 86140; 87040; 87086; 87486; 87581; 87633; 96365; 96372; 96375; 99285; J0692; J1815; J2185; J2470; J2543; J3372; J3373; J7030; J7050; J7120; J7121; J7799; J9999; Q0144